=== PATIENT | male | born 1985 | race Caucasian/White ===

== ENCOUNTER 2024-11-21 11:03 | Emergency (ER) | payer MEDICARE, MEDICAID, SELFPAY ==
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
--- OUTSIDE RECORDS SUMMARY | 2024-11-21 11:05 | XMS_ITS | Referral Summary ---
Author Organization [facility] Address [address] [place] [address] Care Team Providers Care Telegraph Service Clerk Name Role Phone Aisha Medina NP Primary Care Provider + Allergies No known active allergies Medications atorvastatin (LIPITOR) 40 mg tabletIndications:hyp erlipidemia Take 1 tablet (40 mg total) by mouth grain processor before breakfast 2 03/25/20 17 Active amLODIPine (NORVASC) 10 mg tabletIndications:hyp ertension Take 1 tablet (10 mg total) by mouth grain processor before breakfast Active aspirin 81 mg enteric coated tabletIndications:pre vention of thrombosis Take 1 tablet (81 mg total) by mouth grain processor before breakfast Active metoprolol (LOPRESSOR) 25 mg tabletIndications:hyp ertension Take 0.5 tablets (12.5 mg total) by mouth 2 (two) times a day Active hydrALAZINE (APRESOLINE) 50 mg tabletIndications:hyp ertension Take 1 tablet (50 mg total) by mouth 3 (three) times a day Active gabapentin (NEURONTIN) 100 mg capsuleIndications:Ne uropathic Pain Take 1 capsule (100 mg total) by mouth nightly Active insulin glargine (LANTUS,BASAGLAR) 100 unit/mL (3 mL) insulin penIndications:DM Inject 28 Units under the skin nightly Active OneTouch Verio test strips strip 11/21/19 22 Active Dexcom G6 Sensor device 12/18/19 22 Active calcitRIOL (ROCALTROL) 0.25 mcg capsule Take 1 capsule (0.25 mcg total) by mouth 3 (three) times a week 12/21/19 22 Active HumaLOG 100 unit/mL pen for injectionIndications: type 2 diabetes mellitus 13 Units 3 (three) times a day with meals 12/21/19 22 Active rOPINIRole (REQUIP) 0.25 mg tabletIndications:Res tless Legs Syndrome Take 1 tablet (0.25 mg total) by mouth nightly 12/26/19 22 Active sevelamer (RENVELA) 800 mg tabletIndications:Isaias al Osteodystrophy with Hyperphosphatemia Take 1 tablet (800 mg total) by mouth 3 (three) times a day with meals 12/21/19 22 Active blood glucose diagnostic (glucose blood) strip 1 each by other route as directed 10/24/19 23 Active famotidine (PEPCID) 40 mg tablet Take 1 tablet (40 mg total) by mouth daily 01/21/20 23 Active ondansetron (ZOFRAN) 4 mg tabletIndications:john sea Take 1 tablet (4 mg total) by mouth every 6 (six) hours as needed for nausea or vomiting 20 tablet 2 04/19/20 23 Active Active Problems Problem Noted Date Diagnosed Date Diabetic ketoacidosis withou t coma associated with type 1 diabetes mellitus 04/18/2023 Vomiting and diarrhea 04/17/2023 COVID-19 04/17/2023 Hyperglycemia 04/17/2023 Hypokalemia 04/17/2023 Lactic acidosis 04/17/2023 End stage renal disease on dialysis 02/28/2022 Overview (02/28/2022): Added automatically from request for surgery [id number] 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 May just need supplemental anti-VEGF as needed. MAYRA #2 today. Plan for monthly MAYRA x3. Could consider supplemental PRP when vitreous (vit) heme resolves more OS: s/p PRP, stable RTC 1 month for DFE OU, MAYRA OD Assessment & Plan (08/02/2020 1:50 PM COIL WINDER HAND): OD: resolving VH, now 20/20 VA, already with dense PRP. Per patient, has a mild bleeding episode every 1-2 years that never required surgical intervention. May just need supplemental anti-VEGF as needed. MAYRA #1 today. Plan for monthly MAYRA until VH resolves. Could consider supplemental PRP at that time as well. OS: s/p PRP, stable Optos FA transit OD. RTC 1 month for DFE OU, MAYRA OD Essential hypertension 02/12/2018 Assessment & Plan (02/12/2018 6:42 PM CDT): Patient's history of hypertension filled find out how long he has had this particular problem. His blood pressure is elevated today part of this could be white coat hypertension. He is on multiple medications for his hypertension which include clonidine 0.1 mg daily, amlodipine 10 mg daily lisinopril 10 mg daily. Patient was given a blood pressure log she double advised med needed 20 blood pressure readings at random in the next 30 days I will see him back in 2 months. Acute foot pain, right 02/12/2018 Assessment & Plan (02/12/2018 6:44 PM CDT): Patient's acute right foot pain less than 2 weeks he knows he stepped on a tack is concerned that he had infection which is none is examination is foot is perfectly normal other he has pain over the 5th metatarsal distally and the 5th toe. At this time I am going to get an x-ray of his foot looking for a stress fracture this is negative he will end up seeing the Podiatry. 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 This patient on his job does a lot of walking and standing Hyperlipidemia 11/13/2013 Overview (10/03/2016): Hyperlipidemia LDL goal < 100 Chronic renal disease, stage II 11/13/2013 Overview (10/04/2016): CHRONIC KIDNEY DIS NOS Assessment & Plan (02/12/2018 6:40 PM CDT): History of chronic renal disease details unknown to me previous lab not available. Patient will get a CMP to done today referral to Nephrology if deemed necessary patient is also concurrently hypertensive. Male erectile disorder 10/30/2010 Overview (10/03/2016): ED (erectile dysfunction) Assessment & Plan (02/12/2018 6:41 PM CDT): Generic Viagra 25 mg works well for him. Type 1 diabetes mellitus wit h chronic kidney disease on chronic dialysis 10/30/2010 Overview (10/04/2016): DMI WO CMP NT ST UNCNTRL Assessment & Plan (02/12/2018 6:39 PM CDT): This patient is a type 1 diabetic since age 8. He states he is using his glucometer readings are high usually in the 200s. Patient has not had any lab work in the last 6 months he has certain of. He is a new patient to me. He is advised that I do not take care of type 1 diabetic I recommended he see hybrid corn breeder and referral will be made. Date she does have sufficient amount insulin at this time. He stated after some chronic renal problems sought hybrid corn breeder 1-[address] Rivera. No further details on this is known to me. He also has poor vision left by this secondary to trauma to the left eye. Will seeing end user consultant for this particular problem. Immunizations Immunization Administration Dates Next Due Pneumococcal Polysaccharide PPV23 10/30/2010 Social History Tobacco Use Types Packs/Day Years Used Date Smoking Tobacco: Never Passive Smoke Exposure: Past Smokeless Tobacco: Never Tobacco Cessation:Counseling Given: Not Answered Alcohol Use Standard Drinks/Week Comments Yes 0 (1 standard drink = 0.6 oz pur e alcohol) less than 1x/month [facility] Utilities Answer Date Recorded In the past 12 months has th e electric, gas, oil, or water company threatened to shut off services in your home? No 04/18/2023 Social Connection and Isolat ion Panel [NHANES] Answer Date Recorded In a typical week, how many times do you talk on the phone with family, friends, or neighbors? More than three times a week 04/18/2023 How often do you get togethe r with friends or relatives? Twice a week 04/18/2023 How often do you attend chur ch or restoration services? Never 04/18/2023 Do you belong to any clubs o r organizations such as christianity groups, unions, fraternal or athletic groups, or school groups? No 04/18/2023 How often do you attend meet ings of the clubs or organizations you belong to? Never 04/18/2023 Are you , , di vorced, , never , or living with a partner? Never 04/18/2023 AUDIT-C Answer Date Recorded Q1: How often do you have a drink containing alcohol? Never 04/17/2023 Q2: How many drinks containi ng alcohol do you have on a typical day when you are drinking? Patient does not drink Q3: How often do you have si x or more drinks on one occasion? Never 04/17/2023 Overall Financial Resource Strain (CARDIA) Answe r Date Recorded How hard is it for you to pa y for the very basics like food, housing, medical care, and heating? Very hard 04/18/2023 Hunger Vital Sign Answer Date Recorded Within the past 12 months, y ou worried that your food would run out before you got the money to buy more. Sometimes true Within the past 12 months, t he food you bought just didn't last and you didn't have money to get more. Sometimes true PRAPARE - Transportation Answer Date Re corded In the past 12 months, has l ack of transportation kept you from medical appointments or from getting medications? No 03/31 In the past 12 months, has l ack of transportation kept you from meetings, work, or from getting things needed for daily living? No 04/18/2023 Housing Stability Vital Sign Answer Robe e Recorded In the last 12 months, was t here a time when you were not able to pay the mortgage or rent on time? No 04/18/2023 In the last 12 months, how many places have you lived? 2 04/18/2023 In the last 12 months, was t here a time when you did not have a steady place to sleep or slept in a longterm (including now)? No 04/18/2023 Personal Safety Answer Date Recorded Have you ever been in or are you currently in a harmful physical or emotional relationship or is someone making you feel afraid or unsafe? Denies 04/17/2023 Education Answer Date Recorded What is the highest level of school you have completed or the highest degree you have received? Some college, no degree 04/18/2023 Sex and Gender Information Value Date Recorded Sex Assigned at Not on file Legal Sex Male 11:58 PM COIL WINDER HAND Gender Identity Not on file Sexual Orientation Not on file Last Filed Vital Signs Vital Sign Reading Time Taken Comments Blood Pressure 119/80 04/19/2023 11:00 AM CDT Pulse 80 04/19/2023 11:00 AM CDT Temperature 36.6 C (97.8 F) 04/19/2023 11:00 AM CDT Respiratory Rate 18 04/19/2023 11:00 AM CDT Oxygen Saturation 98% 04/19/2023 11:00 AM CDT Inhaled Oxygen Concentration - - Weight 87.2 kg (192 lb 3.9 oz) 04/17/2023 5:41 P M CDT Height 175.3 cm (5' 9) 04/17/2023 5:41 PM CDT Body Mass Index 28.39 04/17/2023 5:41 PM CDT Plan of Treatment Not on file Medical Devices Implanted Type Area Toxicology Teacher Device Identifier Shelf Expiration Date Model / Serial / Lot Stents N/A: Heart [employer] Jourdan Curl Cath 62cm 2 Cuff Kit Peritoneum Catheter Dialysis [id number] - [id number] Implanted:Qty : 1 on 03/28/2022 by Rhona Concepcion MD at [facility] N/A: Abdomen [employer] [id number] 08/27/2026 [id number] / / [id number] Procedures Procedure Name Priority Date/Time Associated Diagnosis Comments EGFR Routine 04/19/2023 9:38 AM CDT HEPATITIS PANEL, ACUTE Routine 04/18/2023 5:26 PM CDT HEMOGLOBIN A1C Routine 02/12/2018 12:13 PM CDT Type 1 diabetes mellitus without complication (HCC) LIPID PANEL Routine 02/12/2018 12:13 PM CDT Type 1 diabetes mellitus without complication (HCC) from Last 3 Months or Most Recently Relevant to Health Maintenance Results * eGFR (04/19/2023 9:38 AM CDT) eGFR 10 mL/min/1. 73 m2 [facility] ([place]) Comment: Interpretive Data Reference Interval Normal >/= 90 mL/min/1.73m2 Mildly decreased* 60 - 89 mL/min/1.73m2 Mildly to moderately decreased 45 - 59 mL/min/1.73m2 Moderately to severely decreased 30 - 44 mL/min/1.73m2 Severely decreased 15 - 29 mL/min/1.73m2 Kidney Failure < 15 mL/min/1.73m2 *Relative to young adult level Estimated glomerular filtration rate is determined by the 2020 CKD-EPI equation recommended by the National Kidney Foundation (A Unifying Approach to GFR Estimation: Recommendations of the NKF-ASK Task Force on Reassessing the Inclusion of Race in Diagnosing Kidney Disease, JASN 2020). The CKD-EPI equation should not be used for patients with unstable renal function and has not been validated in children and those over 70. Current interpretive data was last reviewed 2021. Blood 04/19/2023 9:38 AM CDT 04/19/2023 10:03 AM CDT us Chip Rivera MD LAB BLOOD ORDERABLES Final Re sult [facility] ([place]) [address] [facility] [place] [address] * Hepatitis panel, acute Blood (04/18/2023 5:26 PM CDT) Hep A IgM Nonreactive Nonreactive Comment: Interpretive Data: If Hep A IgM Ab is reported as Equivocal, a new sample should be drawn in two weeks for testing. Current interpretive data was last revised on 19. Testing performed by: [facility], [address] [place] [address]., [id number] Hep B core IgM Nonreactive Nonreactive Trupti MCKINNEY ([place]) Comment: Interpretive Data If HepB Core IgM Ab is reported as Equivocal, a new sample should be drawn in two weeks for testing. Current interpretive data was last revised on 19. Testing performed by: [facility], [address] [place] [address]., [id number] Hep C Ab Nonreactive Nonreactive [facility] ([place]) Comment: Interpretive Data Nonreactive: Antibodies to HCV not detected. Does NOT exclude the possibility of recent exposure to HCV. Equivocal: Equivocal for HCV antibodies. Supplemental molecular testing will be automatically performed to determine infection status in accordance with current CDC screening recommendations. Reactive: Positive for HCV antibodies. This may represent current or past HCV infection. Supplemental molecular testing will be automatically performed to determine current infection status in accordance with current CDC screening recommendations. Interpretive data was last revised on 2019. Testing performed by: [facility], [address] [place] [address]., [id number] HepBsAg Nonreactive Nonreactive [facility] ([place]) Comment:Testing performed by : [address] [address] Blood 04/18/2023 5:26 PM CDT 04/18/2023 6:58 PM CDT us Chip Rivera MD LAB MICROBIOLOGY - GENERAL OR DERABLES Final Result [facility] ([place]) 1 [facility] Department [place] [address] * (ABNORMAL) Hemoglobin A1c (02/12/2018 12:13 PM CDT) Hgb A1C 8.5(H) <5.7 % of total Hgb [facility] [place] Comment: For someone without known diabetes, a hemoglobin A1c value of 6.5% or greater indicates that they may have diabetes and this should be confirmed with a follow-up test. For someone with known diabetes, a value <7% indicates that their diabetes is well controlled and a value greater than or equal to 7% indicates suboptimal control. A1c targets should be individualized based on duration of diabetes, age, comorbid conditions, and other considerations. Currently, no consensus exists regarding use of hemoglobin A1c for diagnosis of diabetes for children. Blood specimen (specimen) 02/12/2018 12:13 PM CDT 02/12/2018 12:14 PM CDT Narrative [facility] - 02/13/2018 3:04 PM CDT FASTING:NO FASTING: NO Resulting Agency Comment Performing Organization Information: Site ID: [place] Name: [facility] Address: [address] [place] [address] [place] [address] Director: Guille Logan D.O., MPH Guille Zavala MD LAB BLOOD ORDERABLES Final Result [place], [place] * (ABNORMAL) Lipid panel (02/12/2018 12:13 PM CDT) Cholesterol 295(H) <200 mg/dL [facility] HDL 37(L) >40 mg/dL [facility] Triglycerides 493(H) <150 mg/dL [facility] LDL mg/dL (calc) [facility] Comment: LDL cholesterol not calculated. Triglyceride levels greater than 400 mg/dL invalidate calculated LDL results. Reference range: <100 Desirable range <100 mg/dL for primary prevention; <70 mg/dL for patients with CHD or diabetic patients with > or = 2 CHD risk factors. LDL-C is now calculated using the Claudette calculation, which is a validated novel method providing better accuracy than the Friedewald equation in the estimation of LDL-C. Omero MORTON et al. FRANCIE. 2013;310(19): 9368-4009 (http://education.[employer]ID[employer]-Solutions/faq/EAO012) Chol/HDL ratio 8.0(H) <5.0 (calc) [facility] [place] Non-HDL, (LDL+VLDL) 258(H) <130 mg/dL (calc) [facility] [place] Comment: Non-HDL level > or = 220 is very high and may indicate genetic familial hypercholesterolemia (FH). Clinical assessment and measurement of blood lipid levels should be considered for all first-degree relatives of patients with an FH diagnosis. For patients with diabetes plus 1 major ASCVD risk factor, treating to a non-HDL-C goal of <100 mg/dL (LDL-C of <70 mg/dL) is considered a therapeutic option. Blood specimen (specimen) 02/12/2018 12:13 PM CDT 02/12/2018 12:14 PM CDT Narrative [facility] - 02/13/2018 3:04 PM CDT FASTING:NO FASTING: NO Resulting Agency Comment Performing Organization Information: Site ID: [place] Name: [facility] Address: [address] [place] [address] [place] [id number] Director: Guille Logan D.O., MPH Guille Zavala MD LAB BLOOD ORDERABLES Final Result [facility] [place] from Last 3 Months or Most Recently Relevant to Health Maintenance Insurance [facility] Member Subscriber Plan / Payer (Ef fective 2021-Present) Name:Godfrey Hollins Relation to Subscriber:Self Name:Godfrey Hollins Payer ID:[id number] (NAIC) Type:MEDICAID RISK OTHER Address: [place] [id number] MEDICARE MEDICARE IDDE Advance Directives For more information, please contact: [phone] * Full Code (Latest Code Status on File) Date Activated Date Inactivated Comments 04/17/2023 3:14 PM 04/19/2023 5:23 PM Care Teams Telegraph Service Clerk Relationship Specialty Start Date End Date Aisha Medina NP [address] [place] [address] PCP - General 06/03/19
--- OUTSIDE RECORDS SUMMARY | 2024-11-21 11:05 | XMS_ITS | Continuity of Care Document ---
Author Organization [facility] Address [address] [place] [address] Phone Care Team Providers Care Caramel Cutter Hand Name Role Phone Logan Resendiz MD, MD Unavailable Unavailab le Allergies, Adverse Reactions, Alerts Substance Reaction Status Criticality No Known Allergies Active No Inform ation Medications Medication Instructions Dosage Effective Dates (start - stop) Status Comments LANTUS (unknown strength) inject by subcutaneous route as per insulin protocol Not Available - Active HUMALOG (unknown strength) inject by subcutaneous route per prescriber's instructions. Insulin dosing requires individualization. Not Available - Active LISINOPRIL (unknown strength) take 1 tablet by oral route every day Not Available - Active PRAVASTATIN SODIUM (unknown strength) take 1 tablet by oral route every day Not Available - Active Procedures Procedure Date Office/outpatient Visit, [facility] Advance Directives Directive Yes / No Effective Date File Name No Information Encounters Encounter Description Practice Location Reason(s) For Visit Diagnoses Date Provider Providers Copied on Encounter Office/outpa tient Visit, [facility], [address] [place], [place], [id number], [place] tel:[phone] [facility] Professional floaters (chief complaint) Proliferative diabetes mellitus retinopathyTRD - Traction retinal detachment [address] [facility], [address], [place], [address], [place]. tel:[phone] Referring Provider: José Gilbert MD, [address], [place], [address]. tel:[phone] Family History Family Member Type Diagnosis Age At Onset Maternal grandfather Problem (finding) Diabetes mellit us Maternal grandmother Problem (finding) Diabetes mellit us Mother Problem (finding) diabetes melli tus in first degree relative Payers Payer name Insurance type Covered libertarian ID Authorozzy canales(s) Medicaid [facility] [id number] Social History Type Description Quantity Date Captured Comments Alcohol Use Details No Caffeine Use Details 2 cups per day Tobacco Use Status Never smoked tobacco 2014 Smoking Status Never smoker Non-Smoking Tobacco Use Details : No Details Available : No Details Available Sex Male Chief Complaint And Reason For Visit From encounter dated '09/27/2014 14:00'. floaters (chief complaint) Reason For Referral Reason For Referral No Information History Of Present Illness Encounter Date Complaint History Of Prese nt Illness floaters The 29 year old male presents for Evaluation for floaters after being hit with a football OS about 1 month ago. HX DM. Pt states he had a lot of black lines at first and states he still has some floaters now. Pt denies any flashes. DM BS 220 this AM. Functional Status Date Functional Assessmen t No Information Instructions Date Instruction Additional Infor junion - Discussed diagnosi s in detail with patient. Patient understands. Refer to Retina Specialist for evaluation and treatment of Traction retinal detachment OS. Related to See list of assessments above TRD - Traction retin al detachment - Educational material given Related to TRD - Traction retinal detachment - Refer to retina fo r traction retinal detachment os Related to See list of assessments above Assessments Type Assessment Date assessment Proliferative diabetes mellitus retinopathy assessment TRD - Traction retinal detachmen t Patient Care Teams Name Effective Dates (start - stop) Status Members No Information
--- OUTSIDE RECORDS SUMMARY | 2024-11-21 11:05 | XMS_ITS | Clinical Summary ---
Author Organization [facility] Address [address] [place] [address] Care Team Providers Care Press Operator Apprentice Name Role Phone Aisha Medina NP Primary Care Provider + Allergies No known active allergies Medications atorvastatin (LIPITOR) 40 mg tabletIndications:hyp erlipidemia Take 1 tablet (40 mg total) by mouth landscaping specialist before breakfast 2 03/25/20 17 Active amLODIPine (NORVASC) 10 mg tabletIndications:hyp ertension Take 1 tablet (10 mg total) by mouth landscaping specialist before breakfast Active aspirin 81 mg enteric coated tabletIndications:pre vention of thrombosis Take 1 tablet (81 mg total) by mouth landscaping specialist before breakfast Active metoprolol (LOPRESSOR) 25 mg [...] (02/28/2022): Added automatically from request for surgery [id number] 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 Previous business system manager Dr. Rod is leaving areas our make [...] type 1 diabetic I recommended he see silver miner and referral will be made. Date she does have sufficient amount insulin at this time. He stated after some chronic renal problems sought silver miner 1-[address] Rivera. No further details on this is known to me. He also has poor vision left by this secondary to trauma to the left eye. Will seeing burr grinder for this particular problem. Immunizations Immunization Administration Dates Next Due Pneumococcal Polysaccharide PPV23 10/30/2010 Surgical History Surgery Date Site/Laterality Comments OTHER SURGICAL HISTORY 06/30/2006 - 06/29/2007 Cancer, testicular: L testicle tumor removed FRACTURE SURGERY Right ORIF hand CARDIAC CATHETERIZATION Prep for 3V bypass CARDIAC STENT PLACEMENT Medical History Medical History Date Comments Type 1 diabetes mellitus (HCC) 1993 D iabetes type 1 Neoplasm of testis 2007 Cancer, testi cular Hx Other Medical 2007 Teeth Pulled Hypertension History of transfusion 2007 Cancer (HCC) testicular Motion sickness Coronary artery disease Chronic kidney disease Anxiety GERD (gastroesophageal reflux disease) Family History Medical History Relation Name Comments No Known Problems Father Norman Hollins Other Maternal Grandfather d; Other Maternal Grandmother d; Diabetes Mother Shaista Hollins Heart disease Mother Shaista Hollins Hypertension Mother Shaista Hollins Other Paternal Grandfather d; Other Paternal Grandmother Alive a nd well; Other Sister 1 Ali Alive and well; Other Sister 2 Jennifer Alive and well; Anesthesia problems Neg Hx Relation Name Status Comments Father Norman Hollins Alive Maternal Grandfather Maternal Grandmother Mother Shaista Hollins Paternal Grandfather Paternal Grandmother Alive Sister 1 Ali Alive Sister 2 Jennifer Alive Social History Tobacco Use Types Packs/Day Years Used Date Smoking Tobacco: Never Passive Smoke Exposure: Past Smokeless Tobacco: Never Tobacco Cessation:Counseling Given: Not Answered Alcohol Use Standard Drinks/Week Comments Yes 0 (1 standard drink = 0.6 oz pur e alcohol) less than 1x/month [employer] Answer Date Recorded In the past 12 months has Phone [employer], gas, oil, or water [employer]line [employer] threatened to shut off services in your [...] 04/18/2023 How often do you attend chur or anglican services? Never 04/18/2023 Do you belong to any clubs o r organizations such as gnosticist groups, unions, fraternal or athletic groups, or [...] you are drinking? Patient does not drink 3 Q3: How often do you have si [...] place to sleep or slept in a jail (including now)? No 04/18/2023 Personal Safety Answer [...] on file Legal Sex Male 11:58 PM REMOTE SENSING ENGINEER Gender Identity Not on file Sexual Orientation Not on file Obstetrics History Last Filed Vital Signs Vital Sign Reading [...] 04/17/2023 5:41 PM CDT Plan of Treatment Health Maintenance Due Date Last Done Comments Albumin Creatinine Ratio, Urine 1983 TSH Level 1983 Varicella Vaccines (1 of 2 - 13+ 2-dose series) 1996 Pneumococcal vaccine <65 (2 of 2 - PCV) 04/09/2017 04/09/2016, 10/30/2010 Depression Screening 02/12/2019 02/12/2018, 11/30/2017, 11/30/2017 Foot Exam 02/12/2019 02/12/2018 Regular Well Visit/Exam 18-64 02/12/2019 02/12/2018 Dilated Eye Exam 08/02/2021 08/02/2020, 07/20/2020 Hemoglobin A1C 06/26/2023 12/25/2022, 11/28, 12/08/2020, Additional history exists Lipid Panel 12/26/2023 12/25/2022, 11/28, 12/08/2020, Additional history exists Covid-19 Vaccine ( season) 2024 06/09/2021, 09/18/2020, 08/28/2020 eGFR 04/19/2024 04/19/2023, 03/31, 04/17/2023, Additional history exists Influenza Vaccine (Season Ended) 2025 04/25/2022, 07/30/2017, 04/09/2016, Additional history exists DTaP/Tdap/Td Vaccine (3 - Td or Tdap) 02/26/2026 02/27/2016, 11/08/2013 Hepatitis B Screening Completed 01/14/2022 Hepatitis C Screening Completed 04/18/2023 HPV Vaccines Aged Out No longer eligi ble based on patient's age to complete this topic Medical Devices Implanted Type Area Tunnel Heading Inspector Device Identifier Shelf Expiration Date Model / Serial / Lot Stents N/A: Heart [employer] Jourdan Curl Cath 62cm 2 Cuff Kit Peritoneum Catheter Dialysis [id number] - [id number] Implanted:Qty : 1 on 03/28/2022 by Rhona Concepcion MD at [facility] N/A: Abdomen [employer] [id number] 08/27/2026 [id number] / / [id number] Procedures Procedure Name Priority Date/Time Associated Diagnosis [...] eGFR 10 mL/min/1. 73 m2 KAILEE MCKINNEY (DEANN) Comment: Interpretive Data Reference Interval Normal >/= [...] LAB BLOOD ORDERABLES Final Re sult KAILEE FAYE (STENDAL) 1 [facility] Department [place] [address] * Hepatitis panel, acute Blood (04/18/2023 5:26 PM CDT) Hep A IgM Nonreactive Nonreactive Comment: Interpretive Data: If Hep A IgM Ab is reported as Equivocal, a new sample should be drawn in two weeks for testing. Current interpretive data was last revised on 19. Testing performed by: [address] [address] Hep B core IgM Nonreactive Nonreactive Trupti MCKINNEY (DEANN) Comment: Interpretive Data If HepB Core IgM Ab is reported as Equivocal, a new sample should be drawn in two weeks for testing. Current interpretive data was last revised on 19. Testing performed by: [address] [address] Hep C Ab Nonreactive Nonreactive KAILEE MCKINNEY [...] last revised on 2019. Testing performed by: [address] [address] HepBsAg Nonreactive Nonreactive KAILEE MCKINNEY (DEANN) Comment:Testing performed by : [address] [address] Blood 04/18/2023 5:26 PM CDT 04/18/2023 6:58 PM CDT us Chip Rivera MD LAB MICROBIOLOGY - GENERAL OR DERABLES Final Result KAILEE MCKINNEY (STENDAL) 1 [facility] Department [place] [address] * (ABNORMAL) Hemoglobin A1c (02/12/2018 12:13 PM [...] Agency Comment Performing Organization Information: Site ID: [place] Name: [facility] Address: [address] [place] [id number] Director: Guille Logan D.O., MPH us Guille Zavala MD LAB BLOOD ORDERABLES Final Result [facility] [place] [facility] [place] * (ABNORMAL) Lipid panel (02/12/2018 12:13 PM CDT) Cholesterol 295(H) <200 mg/dL [facility] [place] HDL 37(L) >40 mg/dL [facility] Triglycerides 493(H) <150 mg/dL [facility] [place] LDL mg/dL (calc) [facility] [place] Comment: LDL cholesterol not calculated. Triglyceride levels [...] equation in the estimation of LDL-C. Omero SS et al. FRANCIE. 2013;310(19): 3183-9218 (http://education.Kleek/faq/VZV776) Chol/HDL ratio 8.0(H) <5.0 (calc) [facility] [...] Agency Comment Performing Organization Information: Site ID: [place] Name: [facility] Address: [address] [place] [address] [place] [address] Director: Guille Logan D.O., MPH Guille Zavala MD LAB BLOOD ORDERABLES Final Result [facility] [place] from Last 3 Months or Most Recently Relevant to Health Maintenance Insurance [facility] Member Subscriber Plan / Payer (Ef fective 2021-Present) Name:Godfrey Hollins Relation to Subscriber:Self Name:Godfrey Hollins Payer ID:[id number] ([facility]) Type:MEDICAID RISK OTHER Address: [address] [id number] MEDICARE MEDICARE [facility] Advance Directives For more information, please contact: [phone] * Full Code (Latest Code Status on File) Date Activated Date Inactivated Comments 04/17/2023 3:14 PM 04/19/2023 5:23 PM Care Teams Press Operator Apprentice Relationship Specialty Start Date End Date Aisha Medina NP [address] [facility] [address] [address] PCP - General 06/03/19
--- OUTSIDE RECORDS SUMMARY | 2024-11-21 11:05 | XMS_ITS | Encounter Summary ---
Author Organization [facility] Address [address] [place] [address] Phone Care Team Providers Care Receiving Dock Checker Name Role Phone Aisha Medina NP Primary Care Provider + Encounter Details Date Type Department Care Team (Late st Contact Info) Description 07/20/2020 Ophth Exam [facility] Ophthalmology [address] [place] [address] [address] [place] [id number] Arnie Neal MD [address] [place] [address] Social History Tobacco Use Types Packs/Day Years Used Date Smoking Tobacco: Never Smokeless Tobacco: Never Alcohol Use Standard Drinks/Week Comments Yes 0 (1 standard drink = 0.6 oz pur e alcohol) less than 1x/month Sex and Gender Information Value Date Recorded Sex Assigned at Not on file Legal Sex Male 11:58 PM MATERIAL LIAISON Gender Identity Not on file Sexual Orientation Not on file documented as of this encounter Plan of Treatment Not on file documented as of this encounter Visit Diagnoses Not on filedocumented in this encounter Additional Health Concerns Infection Onset Date Last Indicated Resolved Time COVID: Suspected 04/17/2023 04/17/2023 04/17/2023 2:27 PM CDT COVID19 Comment:Patient has no documented SpO2 consistently < 94%, is not immunocompromised and does not require supplemental oxygen. Based on a S&S onset date of 04/13/23 plus no need for supplemental oxygen this patient is first eligible for COVID: Recovered evaluation on 04/24/15. If the SpO2 consistently drops below 94% and supplemental oxygen is initiated the COVID: Recovered evaluation date changes to 04/29/23. JONATAN Lunsford 04/17/2023 04/17/2023 04/29/2023 3:05 AM C DT COVID: Recovered Comment:Added based on recent COVID infection. 04/29/2023 05/13/2023 07/28/2023 3:[address] documented as of this encounter Eye Exam Visual Acuity Right eye Left eye Near sc 20/60- ph 20/30- 20/20- Tonometry (Tonopen, 7:44 PM) Right eye Left eye Pressure 15 14 Pupils Dark Light Shape React APD Right eye 5 3 Round Brisk - Left eye 5 3 Round Brisk - Visual Jones Right eye Left eye Full Full Difficulty with CF OU, full to confrontation by motion Extraocular Movement Right eye Left eye Full Full Neuro/Psych Oriented x3: Yes Mood/Affect: Normal Dilation Both eyes: 2.5% Phenylephrin e, 1.0% Mydriacyl @ 7:10 PM External Exam Right eye Left eye External Normal Normal Slit Lamp Exam Right eye Left eye Lids/Lashes Normal Normal Conjunctiva/Sclera White and quiet White and beverly et Cornea SPEE SPEE Anterior Chamber Deep and quiet Deep and quiet Iris Round and reactive, no NVI Round and reactive, no NVI Lens Clear Clear Vitreous [place]'s sign, suspe nded heme w/o large collections of vit heme Normal Fundus Exam Right eye Left eye Disc Hazy view but no fra nk NVD, sharp margins, no pallor Likely inferior NVD C/D Ratio 0.3 0.3 Macula Flats, hazy view, hi gh temp PRP superiorly along arcade with confluent white lesions Few DBH, flat, post-surgical focal gliotic plaques along superior arcade Vessels Vascular attenuation Vascular at tenuation Periphery Dense 360 PRP, infer ior heme, IT prominent choroidal vessel in far periphery w/o elevation, no RT/RD/holes on 360 depressed exam Less dense 360 PRP, no heme, attached 360 w/o RD/RT Care Teams Receiving Dock Checker Relationship Specialty Start Date End Date Aisha Medina NP 2 [facility] [id number] [address] PCP - General 06/03/19 documented as of this encounter
--- OUTSIDE RECORDS SUMMARY | 2024-11-21 11:05 | XMS_ITS | Continuity of Care Document ---
Author Organization [facility] Address [address] [place] [address] Phone Care Team Providers Care Vascular Neurologist Name Role Phone Hemant Quijano MD Unavailable Unavailable Allergies, Adverse Reactions, Alerts Substance Reaction Status Criticality No Known Allergies Active No Inform ation Medications Medication Instructions Dosage Effective Dates (start - stop) Status Comments aspirin 81 mg chewable tablet chew 1 tablet by oral route every day 81 MG - Active amlodipine 10 mg tablet take 1 tablet by oral route every day 10 MG - Active Kapspargo Sprinkle 25 mg capsule,extended release take 1 capsule by oral route every day 25 MG - Active bumetanide 2 mg tablet take 1 tablet by oral route every day 2 MG - Active clonidine HCl 0.1 mg tablet take 1 tablet by oral route 2 times every day 0.1 MG - Active gabapentin 100 mg capsule take 2 capsule by oral route every day 200 MG - Active hydralazine 50 mg tablet take 1 tablet by oral route 2 times every day with food 50 MG - Active Lantus U-100 Insulin 100 unit/mL subcutaneous solution inject by subcutaneous route as per insulin protocol 0.00 - Active Novolog Flexpen U-100 Insulin aspart 100 unit/mL (3 mL) subcutaneous inject by subcutaneous route per prescriber's instructions. Insulin dosing requires individualization. 0.00 - Active sodium bicarbonate 650 mg tablet - Active Viagra 25 mg tablet take 1 tablet by ora l route every day as needed approximately 1 hour before sexual activity 25 MG - Active Vitamin D3 2,000 unit capsule take 1 capsule by oral route every day for 30 days 1 capsule - Active Procedures Procedure Date Injection ext venography Dup-scan hemo compl bi std CONTRAST, 300/ML, PER ML Radiation Exposure Documented INJ PROC EXTREMITY VENOGRAPHY VENOGRAPHY EXT BILAT VESSEL MAPPING HEMODIALYSIS ACCESS To Be Coded Injection ext venography Dup-scan hemo compl bi std Advance Directives Directive Yes / No Effective Date File Name No Information Encounters Encounter Description Practice Location Reason(s) For Visit Diagnoses Date Provider Providers Copied on Encounter [facility], [address] [place] [address], [id number], tel:[phone] [facility] No Information Albovias Hemant. [address] [place] [address], [id number], . tel:[phone] [facility], [address] [place] [address], [id number], tel:[phone] [facility] No Information Albovias Hemant. [address] [place] [address], [id number], . tel:[phone] Referring Provider: Prakash Worrell, [address] [place] [address] [place] [address], [address]. tel:[phone] [facility], [address] [place] [address], [id number], tel:[phone] [facility] Albhyacinthas Hemant. [address] [place] [address], [id number], . tel:[phone] Referring Provider: Prakash Worrell, [address] [place] [address] [place] [address], [address]. tel:[phone] As per patient privacy policy some of the clinical information may not be visible. Family History Family Member Type Diagnosis Age At Onset No Information Payers Payer name Insurance type Covered green party ID Authoriza timehdi(s) [employer] o CI [id number] Social History Type Description Quantity Date Captured Comments Sex Male Smoking Status No Information Sexual Orientation Straight or heterosexual Gender Identity Male Chief Complaint And Reason For Visit No Information Reason For Referral Reason For Referral No Information Plan Of Treatment Date Type Action Status Future Order: Radiology Order Up per Body Flouroscopy (23131M), Ordered on: Ordered History Of Present Illness Encounter Date Complaint History Of Prese nt Illness No Information Functional Status Date Functional Assessmen t No Information Instructions Date Instruction Additional Infor mation No Information Assessments Type Assessment Date No Information Patient Care Teams Name Effective Dates (start - stop) Status Members No Information
--- OUTSIDE RECORDS SUMMARY | 2024-11-21 11:12 | XMS_ITS | Encounter Summary ---
Author Organization [facility] Address [address] [place] [address] Phone Care Team Providers Care House Repairer Name Role Phone Ariel Lua Nikhil DPM Unavailable [phone] Aisha Medina APRN, CNP Primary Care Provid er Juanjo Mclaughlin MD Unavailable Rita Lynne MD Unavailable Meron Gurrola RN Unavailable Unavailable Reason for Visit * Reason Comments Medication Refill Encounter Details Date Type Department Care Team (Late st Contact Info) Description 05/10/2022 Refill [facility] - Family Medicine [facility] [address] [place] [address] Aisha Medina APRN, KASSI [address] [address] Medication Refill Social History Tobacco Use Types Packs/Day Years Used Date Smoking Tobacco: Never Cigarettes Smokeless Tobacco: Never Alcohol Use Standard Drinks/Week Comments Yes 0 (1 standard drink = 0.6 oz pur e alcohol) Socially PHQ-2 Answer Date Recorded Total Score - Questions 1-9 0 09/28 Sexually Active Control Partners Comments Yes Female Sex and Gender Information Value Date Recorded Sex Assigned at Not on file Legal Sex Male 12:16 AM CDT Gender Identity Not on file Sexual Orientation Not on file COVID-19 Exposure Response Date Recorded In the last 10 days, have marcos u been in contact with someone who was confirmed or suspected to have Coronavirus/COVID-19? No / Unsure 04/11/2022 9:55 AM CDT documented as of this encounter Plan of Treatment Upcoming Encounters Date Type Department Care Team (Late st Contact Info) Description 01/18/2025 9:30 AM CDT Office Visit [facility] - Endocrinology [facility] [address] [place] [address] Rita Lynne MD #[address] [address] 03/08/2025 9:45 AM CDT Office Visit [facility] - Family Medicine [facility] [address] [place] [address] Aisha Medina APRN, SEQUINS WINDER #[address] [address] documented as of this encounter Visit Diagnoses Diagnosis 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) Type I (juvenile type) diabetes mellitus with renal manifestations, not stated as uncontrolled RLS (restless legs syndrome) Restless legs syndrome (RLS) documented in this encounter Additional Health Concerns Assessment Noted Time PHQ-9 Depression Total Score: 0 03/01/20 21 10:00 AM CDT documented as of this encounter Care Teams House Repairer Relationship Specialty Start Date End Date Aisha Medina APRN, SEQUINS WINDER [address] [address] PCP - General Advanced Practice Nurse 07/17/18 Ariel Lua DPM Consulting Physician Podiatry 12/02/16 Juanjo Mclaughlin MD [address] [address] Consulting Physician Oncology 12/01/19 Rita Lynne MD #[address] [address] Consulting Physician Endocrinology 10/17/22 Meron Gurrola RN [place] Nurse Malt House Kiln Operator 01/09/24 01/15/24 documented as of this encounter
--- OUTSIDE RECORDS SUMMARY | 2024-11-21 11:12 | XMS_ITS | Encounter Summary ---
Author Organization [facility] Address [address] [place] [address] Phone Care Team Providers Care Skiver Uppers Or Linings Name Role Phone Ariel Lua DPM Unavailable [phone] Aisha Medina APRN, SUBGRADE TESTER Primary Care Provid er Juanjo Mclaughlin MD Unavailable Rita Lynne MD Unavailable Meron Gurrola RN Unavailable Unavailable Reason for Visit * Reason Comments Medication Refill Encounter Details Date Type Department Care Team (Late st Contact Info) Description 11/20/2020 Refill [facility] - [facility]ocrin[facility] [address] [place] [address] Rita Lynne MD #[address] [address] Medication Refill Social History Tobacco Use Types Packs/Day Years Used Date Smoking Tobacco: Never Cigarettes Smokeless Tobacco: Never Alcohol Use Standard Drinks/Week Comments Yes 0 (1 standard drink = 0.6 oz pur e alcohol) Socially PHQ-2 Answer Date Recorded PHQ-2 Score 0 03/02/2019 Sexually Active Control Partners Comments Yes Female Sex and Gender Information Value Date Recorded Sex Assigned at Not on file Legal Sex Male 12:16 AM CDT Gender Identity Not on file Sexual Orientation Not on file documented as of this encounter Miscellaneous Notes * Telephone Encounter - Tammy Mccartney RN - 11/20/2020 9:20 AM CDT Requested Prescriptions Pending Prescriptions Disp Refills ??? Glucose Blood (OneTouch Verio) Strip [Pharmacy Med Name: ONETOUCH VERIO STRP] 3 Sig: USE TO TEST BLOOD SUGAR FOUR TIMES A DAY Next appt: 12/18/2020 documented in this encounter Plan of Treatment Upcoming Encounters Date Type Department Care Team (Late st Contact Info) Description 01/18/2025 9:30 AM CDT Office Visit [facility] - Endocrinology - [place] [address] [place] [address] Rita Lynne MD #[address] [address] 03/08/2025 9:45 AM CDT Office Visit [facility] - Family Medicine - [place] [address] [place] [address] Aisha Medina APRN, SUBGRADE TESTER #2 [facility] [address] [place] [address] documented as of this encounter Visit Diagnoses Not on filedocumented in this encounter Additional Health Concerns Assessment Noted Time PHQ-9 Depression Total Score: 0 07/01/19 20 11:36 AM PICTURE BOOKER documented as of this encounter Care Teams Skiver Uppers Or Linings Relationship Specialty Start Date End Date Aisha Medina APRN, SUBGRADE TESTER #2 [facility] [address] [place] [address] PCP - General Advanced Practice Nurse 07/17/18 Ariel Lua DPM Consulting Physician Podiatry 12/02/16 Juanjo Mclaughlin MD [address] [address] Consulting Physician Oncology 12/01/19 Rita Lynne MD #[address] [address] Consulting Physician Endocrinology 10/17/22 Meron Gurrola, RN [place] Nurse Film Touch Up Inspector 01/09/24 01/15/24 documented as of this encounter
--- OUTSIDE RECORDS SUMMARY | 2024-11-21 11:12 | XMS_ITS | Clinical Summary ---
Author Organization [facility] Address [address] [place] [address] Phone Care Team Providers Care Junior Paralegal Name Role Phone ChanellAriel kam Nikhil DPM Unavailable [phone] Aisha Medina APRN, CONTENT MANAGER Primary Care Provid er Juanjo Mclaughlin MD Unavailable Rita Lynne MD Unavailable Allergies No known active allergies Medications Blood Glucose Monitoring Suppl Device Test four times daily 1 Each 020 Active Lancets Misc Test four times daily 400 Lancet 3 022 Active Continuous Blood Gluc Sensor (Dexcom G6 Sensor) Misc CHANGE SENSOR EVERY 10 DAYS 3 Each 3 022 Active Continuous Blood Gluc Transmit (Dexcom G6 Transmitter) Misc CHANGE TRANSMITTER EVERY 90 DAYS 1 Each 3 023 Active Glucose Blood (OneTouch Verio) Strip 4 times a day 400 Each 3 023 Active Glucose Blood (OneTouch Verio) Strip Use as directed 400 Strip 3 023 Active Insulin Pen Needle (NovoFine Plus Pen Needle) 32G X 4 MM Misc 1 Pen Needle by Does not apply route 4 times daily. Use to inject insulin 4x daily. 400 Pen Needle 3 024 Active NovoFine Autocover Pen Needle 30G X 8 MM Misc 024 Active ondansetron (ZOFRAN) 4 MG Tablet Take 1 Tablet by mouth every 8 hours as needed for Nausea - 1st line. 20 Tablet 024 Active allopurinol (ZYLOPRIM) 100 MG TabletIndications :Elevated uric acid in blood Take 1 Tablet by mouth daily. 90 Tablet 3 024 Active gabapentin (NEURONTIN) 300 MG CapsuleIndication s:Type 1 diabetes mellitus with diabetic polyneuropathy (HCC) Take 1 Capsule by mouth 3 times daily. 90 Capsule 5 024 Active sodium bicarbonate 650 MG Tablet Take by mouth 2 times daily. 024 Active Lokelma 10 g Pack MIX AND DRINK 1 PACKET BY MOUTH DAILY 024 Active Insulin Disposable Pump (Omnipod 5 [id number] Pods Gen 5) Misc Every 3 days 30 Each 1 025 Active insulin lispro (HumaLOG) 100 UNIT/ML Solution Per insulin pump settings, up to 90 units per day 90 mL 1 025 Active Insulin Disposable Pump (Omnipod 5 [id number] Intro Gen 5) Kit CHANGE PODS EVERY 3 DAYS 1 Kit 025 Active amLODIPine (NORVASC) 2.5 MG Tablet Take 2.5 mg by mouth daily. Active aspirin 81 MG Chewable Tablet chew and swallow 1 tablet by mouth daily Active atovaquone (MEPRON) 750 MG/5ML Suspension SHAKE LIQUID AND TAKE 10 ML BY MOUTH DAILY Active cinacalcet (SENSIPAR) 30 MG Tablet take 1 tablet by mouth twice daily with the morning and evening meal Active hydroCHLOROthiazi de 25 MG Tablet Take 25 mg by mouth daily. Active Prevymis 480 MG Tablet Take 1 Tablet by mouth daily. Active metoclopramide (REGLAN) 5 MG Tablet take 1 tablet by mouth every 6 hours as needed for nausea or vomiting Active mycophenolate sodium (MYFORTIC) 180 MG Tablet Delayed Response Take 180 mg by mouth 2 times daily. Active pantoprazole (PROTONIX) 40 MG Tablet Delayed Response Take 40 mg by mouth daily. Active predniSONE (DELTASONE) 5 MG Tablet Take 5 mg by mouth daily. Active Xarelto 2.5 MG Tablet Take 2.5 mg by mouth 2 times daily. Active rOPINIRole (REQUIP) 1 MG Tablet Take 1 mg by mouth nightly. Active rosuvastatin (CRESTOR) 20 MG Tablet Take 20 mg by mouth nightly. Active tadalafil (CIALIS) 20 MG Tablet Take 20 mg by mouth. Active carvedilol (COREG) 12.5 MG Tablet Take 12.5 mg by mouth. Active Tacrolimus ER (ENVARSUS XR) 1 MG TABLET SR 24 HR Take 3 mg by mouth. Active LORazepam (Ativan) 1 MG TabletIndications :Anxiety Take 1 Tablet by mouth every 12 hours as needed for Anxiety. Indications: Feeling Anxious 60 Tablet Active sevelamer carbonate (RENVELA) 800 MG Tablet 020 2024 Discontinued(M ed List Clean Up) senna-docusate (SENOKOT S) 8.6-50 MG Tablet Take 1 Tablet by mouth. 022 2024 Discontinued(M ed List Clean Up) gentamicin (GARAMYCIN) 0.1 % Cream 022 2024 Discontinued(M ed List Clean Up) famotidine (PEPCID) 40 MG Tablet 023 2024 Discontinued(M ed List Clean Up) atorvastatin (LIPITOR) 40 MG Tablet TAKE ONE TABLET BY MOUTH EVERY DAY 90 Tablet 1 023 2024 Discontinued(M ed List Clean Up) potassium chloride SA (KLORCON M) 20 MEQ Tablet Controlled Release Take 20 mEq by mouth daily. 024 2024 Discontinued(M ed List Clean Up) sildenafil citrate (VIAGRA) 100 MG Tablet TAKE 1 TABLET BY MOUTH NEEDED FOR ERECTILE DYSFUNCTION 30 Tablet 024 2024 Discontinued(M ed List Clean Up) Tacrolimus ER (ENVARSUS XR) 1 MG TABLET SR 24 HR Take 3 mg by mouth. 024 2024 Discontinued(M ed List Clean Up) carvedilol (COREG) 12.5 MG Tablet Take 1 Tablet by mouth 2 times daily. 180 Tablet 3 025 2024 Discontinued(M ed List Clean Up) LORazepam (Ativan) 1 MG TabletIndications :Anxiety Take 1 Tablet by mouth every 12 hours as needed for Anxiety. Indications: Feeling Anxious 60 Tablet 025 2024 Discontinued(R eorder) Insulin Disposable Pump (Omnipod 5 [id number] Intro Gen 5) Kit Change Pods every 3 days 1 Kit 025 2024 Discontinued senna (SENOKOT) 8.6 MG Tablet Take 1 Tablet by mouth daily. 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 06/12/20 24 Kidney transplant recipient 06/11/2024 Overview (11/02/2024): .Referring Physician: Dr Juan Manuel Rivera Transplant Date: 06/13/2025 Donor: UNOS ID: [id number] Match ID: [id number] Criteria: DBD KDPI: 25 CMV D+/R- EBV D+/R+ HLA Recipient: A(1, 3) B(8, 51) DR(1, 17) Donor: A(2, 23) B(44, 44) DR(11, 15) cPRA: 2% Pre-Transplant Summary: ESRD cause: DM Active on wait list 05/18/21 Kidney Transplant preformed by: Dr Arias Pre- transplant Risk labs: Recent Labs Component Name 06/12/24 0421 HIV12 Non-reactive HEPBCAB Non-reactive HBSAB 107.05 HEPBSAG Negative HCVRNARPT Not detected DONORHCV Negative Immunosuppression: Anti-Thymocyte globulin 100 mg on POD 0, 100 mg on POD 1, 100 mg on POD 2 (total 3 mg/kg) Methylprednisolone 500 mg POD 0, 250 mg POD1, 125 mg POD 2, 60 mg POD 3, 30 mg POD 4 (kidney) Maintenance Immunosuppression: Tacrolimus started POD 0, currently on Envarsus 5 daily - goal trough 8-10 ng/mL (tacrolimus level was high today so dose today was held and patient will start 5 mg daily starting tomorrow) Mycophenolate started POD 0, on mycophenolate 360 mg twice daily Prednisone started POD 5, prednisone 5 on discharge Opportunistic Infection Prophylaxis: PJP Prophylaxis: Bactrim DS PO MWF x 6 months (until 12/12/24) - increased frequency to daily when CrCl >30 CMV Risk status: High risk. Will discharge on Valganciclovir 900 mg daily x 6 months (until 12/12/24) - increase frequency to daily when CrCl > 40 and to 900 mg daily when CrCl > 60. Anti-fungal prophylaxis: none Adjustments: Readmissions: 08/18-08/24/24 presented to the hospital with RLE pain. Patient states he was having right lower extremity pain since his transplant, however it has worsened within the past week. About a week ago, he had a CT angio abdomen aorta with runoff which showed an extensive clot in his right lower extremity. Patient underwent a right femoral artery to popliteal artery bypass on 08/[address] Edwards and tolerated the procedure. Biopsies: Stent Removal scheduled: 07/27 Removed: 07/30 PD Catheter Removed:07/30 [facility] required risk labs ordered for draw 28-56 days post txp. Due: 07/12 - 08/09/24 07/15/23 Non-Reactive for HIV RNA Non-Reactive for HCV RNA Non-Reactive for HBV DNA Test performed with [employer] Ultrio Elite Assay Kit. Acute foot pain, left 04/14/2024 Presence of aortocoronary bypass graft 4 CAD (coronary artery disease) 11/02/2019 CKD (chronic kidney disease) stage 4, GFR 15-29 ml/min 02/18/2019 Overview (03/19/2019): NEPHRO following Pain in both feet 02/18/2019 Macroalbuminuric diabetic nephropathy 02/18/2019 High blood pressure 08/25/2018 Hyperlipidemia 08/25/2018 Diabetes mellitus type I 12/02/2016 Encounters Date Type Department Care Team Description 11/02/2024 11:30 AM CDT Office Visit [facility] [address] [place] [address] Aisha Medina, FOXER, CONTENT MANAGER Primary hypertension (Primary Dx); Anxiety; 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); Kidney transplant recipient; Superficial femoral artery occlusion (HCC); Type 1 diabetes mellitus with diabetic polyneuropathy (HCC); Foot lesion Discharge Disposition: Discharged to home or Selfcare 11/02/2024 Travel 10/27/2024 Refill [facility] Endocrinology - [place] [address] [place] [address] Rita Lynne MD Medication Refill 10/19/2024 9:21 AM CDT - 10/19/2024 11:59 PM CDT Hospital Encounter [facility] Ultrasound [address] [place] [address] Aftab Allen MD Discharge Disposition: Discharged to home or Selfcare 10/19/2024 7:30 AM CDT - 10/19/2024 9:20 AM CDT Hospital Encounter [facility] MRI [address] [place] [address] Aftab Allen MD Discharge Disposition: Discharged to home or Selfcare 10/19/2024 7:30 AM CDT Hospital Encounter [facility] MRI [address] [place] [address] Aftab Allen MD Discharge Disposition: Discharged to home or Selfcare 10/19/2024 Travel 10/08/2024 10:15 AM CDT Office Visit [facility] Endocrinology [facility] [address] [place] [address] Rita Lynne MD Type 1 diabetes mellitus with nephropathy (HCC) (Primary Dx); Hypoglycemia; Insulin dose changed (HCC); Overweight Discharge Disposition: Discharged to home or Selfcare 10/08/2024 Travel 09/17/2024 Telephone [facility] Endocrinology [facility] [address] [place] [address] Rita Lynne MD Medication Management (Insulin coverage) 09/15/2024 Transcribe Orders [facility] Central Scheduling [address] [place] [address] Aftab Allen MD Malignant neoplasm of descended testis, unspecified laterality (HCC) (Primary Dx) 09/13/2024 [facility]phone [facility] [address] [place] [address] Aisha Medina APRN, CONTENT MANAGER Appointment 09/10/2024 [facility] [address] [place] [address] Sukumar Mulligan MD Medication Refill 09/07/2024 [facility] [address] [place] [address] Rita Lynne MD Medication Management (Insulin) from Last 3 Months Immunizations Immunization Administration Dates Next Due Covid-19, Mrna, Lnp-s, Pf, 3 0 Mcg/0.3 Ml Dose (Gazelle) 06/09/2021,09/18/2020,08/28/2020 Hepatitis A Vaccine 05/12/2019 Hepatitis A Vaccine, Pediatr ic/adolescent, 2 Dose Schedule 11/08/2019,11/08/2019 Hepatitis B Vaccine 01/14/2022 Influenza Vaccine 06/16/2023,04/25/2022 Influenza Vaccine greater than 3 yrs 05/12/2024 Influenza, Injectable, Quadrivalent 07/30/2017,1 ,08/29/2015 Influenza,Split Virus,Trivalent,Injectable,PF 05/12/2024 Pneumococcal Vaccine Adult - 23 Valent 6,10/30/2010 Sars-cov-2 (Covid-19) Vaccine, Unspecified 08/28 TB Skin Test 05/03/2022,03/04/2022,01/23/2022 TDAP Vaccine 11/08/2013 Td Vaccine (preservative free) 02/27/2016 Family History Medical History Relation Name Comments Hypertension Father Diabetes Mother Hypertension Mother Relation Name Status Comments Father Alive Mother Alive Social History Tobacco Use Types Packs/Day Years Used Date Smoking Tobacco: Never Smokeless Tobacco: Never Tobacco Cessation:Counseling Given: Not Answered Alcohol Use Standard Drinks/Week Comments Yes 0 (1 standard drink = 0.6 oz pur e alcohol) Socially PHQ-2 Answer Date Recorded Total Score - Questions 1-9 0 11/2024 Sexually Active Control Partners Comments Yes Female Sex and Gender Information Value Date Recorded Sex Assigned at Not on file Legal Sex Male 12:16 AM CDT Gender Identity Not on file Sexual Orientation Not on file Last Filed Vital Signs Vital Sign Reading Time Taken Comments Blood Pressure 116/72 11/02/2024 11:34 AM CDT Pulse 64 11/02/2024 11:34 AM CDT Temperature 36.5 C (97.7 F) 11/02/2024 11:34 AM CDT Respiratory Rate 16 11/02/2024 11:34 AM CDT Oxygen Saturation 98% 11/02/2024 11:34 AM CDT Inhaled Oxygen Concentration - - Weight 85.3 kg (188 lb) 11/02/2024 11:34 AM CDT Height 175.3 cm (5' 9) 11/02/2024 11:34 AM CDT Body Mass Index 27.76 11/02/2024 11:34 AM CDT Plan of Treatment Upcoming Encounters Date Type Department Care Team (Late st Contact Info) Description 01/18/2025 9:30 AM CDT Office Visit [facility] - Endocrinology - [place] [address] [place] [address] Rita Lynne MD [address] [facility] [address] [place] [address] 03/08/2025 9:45 AM CDT Office Visit [facility] - Family Medicine - [place] [address] [place] [address] Aisha Medina APRN, CONTENT MANAGER [address] [facility] [address] [place] [address] Health Maintenance Due Date Last Done Comments Pneumococcal Immunization Combined (3 of 3 - PCV) 04/09/2017 04/09/2016, 10/30/2010 Hepatitis B Immunization (2 of 3 - 19+ 3-dose series) 02/11/2022 01/14/2022 SARS-COV-2 Immunization ( season) 2024 06/09/2021, 09/18/2020, 08/28/2020, Additional history exists Diabetes: Eye Exam 11/25/2024 11/26/2023, 1 , 07/30/2018 Diabetes: Hemoglobin A1c 02/16/2025 025, 08/10/2024, 08/06/2024, Additional history exists Diabetes: Foot Exam 08/10/2025 08/10/2024, 06/18/2019, 06/18/2019, Additional history exists Diabetes: Nephropathy Screening 10/19/2025 10/19/2024, 12/04/2021, 01/24/2021, Additional history exists Td Immunization Every 10 Years (Adults With 1 Tdap) 02/26/2026 02/27/2016, 11/08/2013 Respiratory Syncytial Virus (RSV) Immunization (Adult) (1 - 1-dose 75+ series) 2058 Influenza Immunization Completed , 05/12/2024, 06/16/2023, Additional history exists Hepatitis C Virus (HCV) Screening Completed 06/12/2024, 06/12/2024, 05/06/2024, Additional history exists Human Papillomavirus (HPV) Immunization Aged Out No longer eligible based on patient's age to complete this topic Meningococcal Immunization (ACWY) Aged Out No longer eligible based on patient's age to complete this topic Rotavirus Immunization Aged Out No lo nger eligible based on patient's age to complete this topic Procedures Procedure Name Priority Date/Time Associated Diagnosis Comments PHYSICAL THERAPY CONSULT 10/21/2024 12:00 AM CDT US TESTICULAR WITH COLOR DOPPLER LMT Routine 10/19/2024 9:58 AM CDT Malignant neoplasm of descended testis, unspecified laterality (HCC) MRI PELVIS W/WO CONTRAST Routine 10/19/2024 9:30 AM CDT Malignant neoplasm of descended testis, unspecified laterality (HCC) MRI ABDOMEN W/WO CONTRAST Routine 10/19/2024 9:29 AM CDT Malignant neoplasm of descended testis, unspecified laterality (HCC) POCT CREATININE Routine 10/19/2024 7:46 AM CDT POCT GLYCOSYLATED HEMOGLOBIN Routine 08/10/2024 10:37 AM SUPERVISOR PICKING CREW Type 1 diabetes mellitus with nephropathy (HCC) CMP (COMPREHENSIVE METABOLIC PANEL) 12/04/2021 12:00 AM CDT HM DILATED EYE EXAM Routine 07/30/2018 from Last 3 Months or Most Recently Relevant to Health Maintenance Results * PHYSICAL THERAPY CONSULT (10/21/2024 12:00 AM CDT) 10/21/2024 us Provider Scan GENERIC SCAN ORDERS CONSULT Filomena l Result SCAN * US TESTICULAR WITH COLOR DOPPLER LMT (10/19/2024 9:58 AM CDT) Anatomical Region Laterality Modality Abdomen N/A Ultrasound 10/28/2024 9:54 AM CDT Impressions 10/28/2024 9:57 AM CDT IMPRESSION: Left orchiectomy. No evidence of right testicular mass or torsion. Few tiny punctate calcifications near the right rete testis, a nonspecific finding and of doubtful clinical significance. 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 Abnormal markers on recent labs TECHNIQUE: Odell scale imaging of the scrotum and testes. COMPARISON: None FINDINGS: RIGHT: TESTICLE: The right testicle measures 4.9 x 2.2 x 3.4 cm. The right testicle is normal in echotexture and contour. There are a few tiny punctate calcifications near the rete testis. There is normal blood flow. EPIDIDYMIS: 1.2 x 1.2 x 1.3 cm. The epididymis is normal in size and appearance. HYDROCELE OR VARICOCELE: There is no evidence of significant hydrocele or varicocele. HERNIA OR EXTRA-TESTICULAR MASS: There is no evidence of extratesticular mass. OTHER: No other significant finding. LEFT: Orchiectomy. THIS IS AN ELECTRONICALLY VERIFIED FINAL REPORT 10/28/2024 9:54 AM - Electronically signed by Edgar Plascencia M.D. 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 Abnormal markers on recent labs TECHNIQUE: Odell scale imaging of the scrotum and testes. COMPARISON: None FINDINGS: RIGHT: TESTICLE: The right testicle measures 4.9 x 2.2 x 3.4 cm. The right testicle is normal in echotexture and contour. There are a few tiny punctate calcifications near the rete testis. There is normal blood flow. EPIDIDYMIS: 1.2 x 1.2 x 1.3 cm. The epididymis is normal in size and appearance. HYDROCELE OR VARICOCELE: There is no evidence of significant hydrocele or varicocele. HERNIA OR EXTRA-TESTICULAR MASS: There is no evidence of extratesticular mass. OTHER: No other significant finding. LEFT: Orchiectomy. THIS IS AN ELECTRONICALLY VERIFIED FINAL REPORT 10/28/2024 9:54 AM - Electronically signed by Edgar Plascencia M.D. AM: AM Report ID: [id number] Reading Location: [id number] IMPRESSION: Left orchiectomy. No evidence of right testicular mass or torsion. Few tiny punctate calcifications near the right rete testis, a nonspecific finding and of doubtful clinical significance. us Aftab Allen MD IMG US ORDERABLES Final Result * MRI PELVIS W/WO CONTRAST (10/19/2024 9:30 AM CDT) Anatomical Region Laterality Modality Abdomen, Pelvis N/A Magnetic Resonan ce 10/25/2024 6:56 PM CDT Addenda Addendum by Adriel Barrow MD on 10/28/2024 10:24 AM CDT ADDENDUM REPORT: ADDENDUM: This addendum report supersedes the original report dated October 25, 2024 In the region of the left inguinal canal there is a rounded T2 hypointense T1 isointense structure measuring a maximum of 2.5 x 1.9 cm. There is subtle enhancement on postcontrast imaging. This is indeterminate. This would be amendable to image guided percutaneous sampling as clinically warranted. END OF ADDENDUM REPORT EXAM DESCRIPTION: MRI ABDOMEN W/WO CONTRAST; MRI PELVIS W/WO CONTRAST REASON FOR STUDY: Hx testicular CA 2005 sp BEP. Check for recurrence. Per pt elevated tumor marker in lab work. kidney transplant May 2024. ; Hx testicular CA sp BEP 2005. Check for recurrence. per pt elevated tumor marker in lab work TECHNIQUE: MRI of the abdomen performed without and with intravenous contrast according to the protocol. All images stored on PACS. CONTRAST TYPE/DOSE: 18mL of GADOBENATE DIMEGLUMINE 529 MG/ML IV SOLN injected via Intravenous COMPARISON: None available FINDINGS: LOWER CHEST: No effusion. LIVER: Normal size. No mass. No cysts. GALLBLADDER: No stones, wall thickening or pericholecystic fluid BILE DUCTS: No intrahepatic or extrahepatic ductal dilatation. SPLEEN: Normal size. No focal lesions. PANCREAS: No masses. No adjacent inflammation or peripancreatic fluid collections. Pancreatic duct not dilated ADRENALS: Normal. KIDNEYS/URINARY TRACT: Atrophy of the kidneys bilaterally. Left lower quadrant transplant kidney in place. No solid masses. No cysts. No hydronephrosis or hydroureter. Symmetric enhancement. GI: Small hiatal hernia. PERITONEUM: No ascites. RETROPERITONEUM: No mass or adenopathy. VASCULATURE: No abdominal aortic aneurysm. MUSCULOSKELETAL: No acute findings. OTHER: No other abnormality. Within the pelvis there are postsurgical changes suggestive of right orchiectomy. Several small right inguinal lymph nodes are seen. Given the patient's history these are indeterminate. There is a enlarged right external iliac lymph node measuring 1.8 x 1.3 cm. IMPRESSION: 1. Several small right inguinal and external iliac lymph nodes as above. Given patient's history and recent lab work was further evaluation is warranted. THIS IS AN ELECTRONICALLY VERIFIED FINAL REPORT 10/25/2024 6:56 PM - Electronically signed by Adriel DSOUZA: MEET Report ID: [id number] Reading Location: [id number] THIS IS AN ELECTRONICALLY VERIFIED FINAL REPORT 10/28/2024 10:22 AM Addendum Electronically signed by Adriel DSOUZA: MEET Report ID: [id number] Reading Location: [id number] Impressions 10/25/2024 6:59 PM CDT IMPRESSION: 1. Several small right inguinal and external iliac lymph nodes as above. Given patient's history and recent lab work was further evaluation is warranted. Narrative 10/25/2024 6:59 PM CDT EXAM DESCRIPTION: MRI ABDOMEN W/WO CONTRAST; MRI PELVIS W/WO CONTRAST REASON FOR STUDY: Hx testicular CA 2005 sp BEP. Check for recurrence. Per pt elevated tumor marker in lab work. kidney transplant May 2024. ; Hx testicular CA sp BEP 2005. Check for recurrence. per pt elevated tumor marker in lab work TECHNIQUE: MRI of the abdomen performed without and with intravenous contrast according to the protocol. All images stored on PACS. CONTRAST TYPE/DOSE: 18mL of GADOBENATE DIMEGLUMINE 529 MG/ML IV SOLN injected via Intravenous COMPARISON: None available FINDINGS: LOWER CHEST: No effusion. LIVER: Normal size. No mass. No cysts. GALLBLADDER: No stones, wall thickening or pericholecystic fluid BILE DUCTS: No intrahepatic or extrahepatic ductal dilatation. SPLEEN: Normal size. No focal lesions. PANCREAS: No masses. No adjacent inflammation or peripancreatic fluid collections. Pancreatic duct not dilated ADRENALS: Normal. KIDNEYS/URINARY TRACT: Atrophy of the kidneys bilaterally. Left lower quadrant transplant kidney in place. No solid masses. No cysts. No hydronephrosis or hydroureter. Symmetric enhancement. GI: Small hiatal hernia. PERITONEUM: No ascites. RETROPERITONEUM: No mass or adenopathy. VASCULATURE: No abdominal aortic aneurysm. MUSCULOSKELETAL: No acute findings. OTHER: No other abnormality. Within the pelvis there are postsurgical changes suggestive of right orchiectomy. Several small right inguinal lymph nodes are seen. Given the patient's history these are indeterminate. There is a enlarged right external iliac lymph node measuring 1.8 x 1.3 cm. THIS IS AN ELECTRONICALLY VERIFIED FINAL REPORT 10/25/2024 6:56 PM - Electronically signed by Adriel Barrow M.D. JA: MEET Report ID: [id number] Reading Location: [id number] Procedure Note Adriel Barrow MD - 10/25/2024 EXAM DESCRIPTION: MRI ABDOMEN W/WO CONTRAST; MRI PELVIS W/WO CONTRAST REASON FOR STUDY: Hx testicular CA 2005 sp BEP. Check for recurrence. Per pt elevated tumor marker in lab work. kidney transplant May 2024. ; Hx testicular CA sp BEP 2005. Check for recurrence. per pt elevated tumor marker in lab work TECHNIQUE: MRI of the abdomen performed without and with intravenous contrast according to the protocol. All images stored on PACS. CONTRAST TYPE/DOSE: 18mL of GADOBENATE DIMEGLUMINE 529 MG/ML IV SOLN injected via Intravenous COMPARISON: None available FINDINGS: LOWER CHEST: No effusion. LIVER: Normal size. No mass. No cysts. GALLBLADDER: No stones, wall thickening or pericholecystic fluid BILE DUCTS: No intrahepatic or extrahepatic ductal dilatation. SPLEEN: Normal size. No focal lesions. PANCREAS: No masses. No adjacent inflammation or peripancreatic fluid collections. Pancreatic duct not dilated ADRENALS: Normal. KIDNEYS/URINARY TRACT: Atrophy of the kidneys bilaterally. Left lower quadrant transplant kidney in place. No solid masses. No cysts. No hydronephrosis or hydroureter. Symmetric enhancement. GI: Small hiatal hernia. PERITONEUM: No ascites. RETROPERITONEUM: No mass or adenopathy. VASCULATURE: No abdominal aortic aneurysm. MUSCULOSKELETAL: No acute findings. OTHER: No other abnormality. Within the pelvis there are postsurgical changes suggestive of right orchiectomy. Several small right inguinal lymph nodes are seen. Given the patient's history these are indeterminate. There is a enlarged right external iliac lymph node measuring 1.8 x 1.3 cm. THIS IS AN ELECTRONICALLY VERIFIED FINAL REPORT 10/25/2024 6:56 PM - Electronically signed by Adriel Barrow M.D. JA: MEET Report ID: [id number] Reading Location: [id number] IMPRESSION: 1. Several small right inguinal and external iliac lymph nodes as above. Given patient's history and recent lab work was further evaluation is warranted. us Aftab Allen MD IMG MR ORDERABLES Edited Result - Final * MRI ABDOMEN W/WO CONTRAST (10/19/2024 9:29 AM CDT) Anatomical Region Laterality Modality Abdomen N/A Magnetic Resonan ce 10/25/2024 6:56 PM CDT Addenda Addendum by Adriel Barrow MD on 10/28/2024 10:24 AM CDT ADDENDUM REPORT: ADDENDUM: This addendum report supersedes the original report dated October 25, 2024 In the region of the left inguinal canal there is a rounded T2 hypointense T1 isointense structure measuring a maximum of 2.5 x 1.9 cm. There is subtle enhancement on postcontrast imaging. This is indeterminate. This would be amendable to image guided percutaneous sampling as clinically warranted. END OF ADDENDUM REPORT EXAM DESCRIPTION: MRI ABDOMEN W/WO CONTRAST; MRI PELVIS W/WO CONTRAST REASON FOR STUDY: Hx testicular CA 2005 sp BEP. Check for recurrence. Per pt elevated tumor marker in lab work. kidney transplant May 2024. ; Hx testicular CA sp BEP 2005. Check for recurrence. per pt elevated tumor marker in lab work TECHNIQUE: MRI of the abdomen performed without and with intravenous contrast according to the protocol. All images stored on PACS. CONTRAST TYPE/DOSE: 18mL of GADOBENATE DIMEGLUMINE 529 MG/ML IV SOLN injected via Intravenous COMPARISON: None available FINDINGS: LOWER CHEST: No effusion. LIVER: Normal size. No mass. No cysts. GALLBLADDER: No stones, wall thickening or pericholecystic fluid BILE DUCTS: No intrahepatic or extrahepatic ductal dilatation. SPLEEN: Normal size. No focal lesions. PANCREAS: No masses. No adjacent inflammation or peripancreatic fluid collections. Pancreatic duct not dilated ADRENALS: Normal. KIDNEYS/URINARY TRACT: Atrophy of the kidneys bilaterally. Left lower quadrant transplant kidney in place. No solid masses. No cysts. No hydronephrosis or hydroureter. Symmetric enhancement. GI: Small hiatal hernia. PERITONEUM: No ascites. RETROPERITONEUM: No mass or adenopathy. VASCULATURE: No abdominal aortic aneurysm. MUSCULOSKELETAL: No acute findings. OTHER: No other abnormality. Within the pelvis there are postsurgical changes suggestive of right orchiectomy. Several small right inguinal lymph nodes are seen. Given the patient's history these are indeterminate. There is a enlarged right external iliac lymph node measuring 1.8 x 1.3 cm. IMPRESSION: 1. Several small right inguinal and external iliac lymph nodes as above. Given patient's history and recent lab work was further evaluation is warranted. THIS IS AN ELECTRONICALLY VERIFIED FINAL REPORT 10/25/2024 6:56 PM - Electronically signed by Adriel Barrow M.D. JA: MEET Report ID: [id number] Reading Location: [id number] THIS IS AN ELECTRONICALLY VERIFIED FINAL REPORT 10/28/2024 10:22 AM Addendum Electronically signed by Adriel Barrow M.D. JA: MEET Report ID: [id number] Reading Location: [id number] Impressions 10/25/2024 6:59 PM CDT IMPRESSION: 1. Several small right inguinal and external iliac lymph nodes as above. Given patient's history and recent lab work was further evaluation is warranted. Narrative 10/25/2024 6:59 PM CDT EXAM DESCRIPTION: MRI ABDOMEN W/WO CONTRAST; MRI PELVIS W/WO CONTRAST REASON FOR STUDY: Hx testicular CA 2005 sp BEP. Check for recurrence. Per pt elevated tumor marker in lab work. kidney transplant May 2024. ; Hx testicular CA sp BEP 2005. Check for recurrence. per pt elevated tumor marker in lab work TECHNIQUE: MRI of the abdomen performed without and with intravenous contrast according to the protocol. All images stored on PACS. CONTRAST TYPE/DOSE: 18mL of GADOBENATE DIMEGLUMINE 529 MG/ML IV SOLN injected via Intravenous COMPARISON: None available FINDINGS: LOWER CHEST: No effusion. LIVER: Normal size. No mass. No cysts. GALLBLADDER: No stones, wall thickening or pericholecystic fluid BILE DUCTS: No intrahepatic or extrahepatic ductal dilatation. SPLEEN: Normal size. No focal lesions. PANCREAS: No masses. No adjacent inflammation or peripancreatic fluid collections. Pancreatic duct not dilated ADRENALS: Normal. KIDNEYS/URINARY TRACT: Atrophy of the kidneys bilaterally. Left lower quadrant transplant kidney in place. No solid masses. No cysts. No hydronephrosis or hydroureter. Symmetric enhancement. GI: Small hiatal hernia. PERITONEUM: No ascites. RETROPERITONEUM: No mass or adenopathy. VASCULATURE: No abdominal aortic aneurysm. MUSCULOSKELETAL: No acute findings. OTHER: No other abnormality. Within the pelvis there are postsurgical changes suggestive of right orchiectomy. Several small right inguinal lymph nodes are seen. Given the patient's history these are indeterminate. There is a enlarged right external iliac lymph node measuring 1.8 x 1.3 cm. THIS IS AN ELECTRONICALLY VERIFIED FINAL REPORT 10/25/2024 6:56 PM - Electronically signed by Adriel Barrow M.D. JA: MEET Report ID: [id number] Reading Location: [place] [address] Procedure Note Adriel Barrow MD - 10/25/2024 EXAM DESCRIPTION: MRI ABDOMEN W/WO CONTRAST; MRI PELVIS W/WO CONTRAST REASON FOR STUDY: Hx testicular CA 2005 sp BEP. Check for recurrence. Per pt elevated tumor marker in lab work. kidney transplant May 2024. ; Hx testicular CA sp BEP 2005. Check for recurrence. per pt elevated tumor marker in lab work TECHNIQUE: MRI of the abdomen performed without and with intravenous contrast according to the protocol. All images stored on PACS. CONTRAST TYPE/DOSE: 18mL of GADOBENATE DIMEGLUMINE 529 MG/ML IV SOLN injected via Intravenous COMPARISON: None available FINDINGS: LOWER CHEST: No effusion. LIVER: Normal size. No mass. No cysts. GALLBLADDER: No stones, wall thickening or pericholecystic fluid BILE DUCTS: No intrahepatic or extrahepatic ductal dilatation. SPLEEN: Normal size. No focal lesions. PANCREAS: No masses. No adjacent inflammation or peripancreatic fluid collections. Pancreatic duct not dilated ADRENALS: Normal. KIDNEYS/URINARY TRACT: Atrophy of the kidneys bilaterally. Left lower quadrant transplant kidney in place. No solid masses. No cysts. No hydronephrosis or hydroureter. Symmetric enhancement. GI: Small hiatal hernia. PERITONEUM: No ascites. RETROPERITONEUM: No mass or adenopathy. VASCULATURE: No abdominal aortic aneurysm. MUSCULOSKELETAL: No acute findings. OTHER: No other abnormality. Within the pelvis there are postsurgical changes suggestive of right orchiectomy. Several small right inguinal lymph nodes are seen. Given the patient's history these are indeterminate. There is a enlarged right external iliac lymph node measuring 1.8 x 1.3 cm. THIS IS AN ELECTRONICALLY VERIFIED FINAL REPORT 10/25/2024 6:56 PM - Electronically signed by Adriel Barrow M.D. JA: MEET Report ID: [id number] Reading Location: [place] [address] IMPRESSION: 1. Several small right inguinal and external iliac lymph nodes as above. Given patient's history and recent lab work was further evaluation is warranted. Aftab Allen MD [facility] [place] MR ORDERABLES Edited Result - Final * (ABNORMAL) POCT Creatinine (10/19/2024 7:46 AM CDT) CREATININE - POCT 1.7(H) 0.6 - 1.3 mg/dL 10/19/2024 7:48 AM CDT [facility] Blood 10/19/2024 7:46 AM CDT 10/19/2024 7:48 AM CDT us None Provider POINT OF CARE TESTING Final Resu lt [facility] [address] [place] [address] * (ABNORMAL) POCT GLYCOSYLATED HEMOGLOBIN (08/10/2024 10:37 AM SUPERVISOR PICKING CREW) HGB-A1C 7.7(A) 4 - 6 % Blood 08/10/2024 10:3 7 AM SUPERVISOR PICKING CREW us Rita Lynne MD POINT OF CARE TESTING (MANUAL) F inal Result * CMP (COMPREHENSIVE METABOLIC PANEL) (12/04/2021 12:00 AM CDT) 12/04/2021 us Not On File Provider CHEMISTRY ORDERABLES Final Result SCAN * DILATED EYE EXAM (07/30/2018) us Cristy Granado MD PROCEDURE/MINOR SURGICAL OR DERABLES Final Result from Last 3 Months or Most Recently Relevant to Health Maintenance Insurance MEDICAID [place] MEDICARE C [employer] Care Teams Junior Paralegal Relationship Specialty Start Date End Date Aisha Medina APRN, KASSI #2 [facility] [address] [place] [address] PCP - General Advanced Practice Nurse 07/17/18 Ariel Lua DPM Consulting Physician Podiatry 12/02/16 Juanjo Mclaughlin MD [address] [place] [address] Consulting Physician Oncology 12/01/19 Rita Lynne MD #2 [facility] [address] [place] [address] Consulting Physician Endocrinology 10/17/22
--- OUTSIDE RECORDS SUMMARY | 2024-11-21 11:12 | XMS_ITS | Encounter Summary ---
Author Organization [facility] Address [address] [place] [address] Phone Care Team Providers Care Electrical Logger Name Role Phone Ariel Lua DPM Unavailable [phone] Aisha Medina APRN, DATA ACQUISITION TECHNICIAN Primary Care Provid er Juanjo Mclaughlin MD Unavailable Rita Lynne MD Unavailable Meron Gurrola RN Unavailable Unavailable Reason for Visit * Reason Comments Medication Refill Encounter Details Date Type Department Care Team (Late st Contact Info) Description 11/22/2020 Refill [facility] #2 [place] [address] Rita Lynne MD #[address] [address] Medication Refill Social History Tobacco [...] Telephone Encounter - Tammy Mccartney RN - 11/22/2020 8:10 AM CDT Requested Prescriptions Pending Prescriptions Disp Refills ??? OneTouch Verio Strip [Pharmacy Med Name: ONETOUCH VERIO STRP] 3 Sig: USE TO TEST BLOOD SUGAR FOUR TIMES A DAY Next appt: 12/22/2020 documented in this encounter Plan of Treatment Upcoming Encounters Date Type Department Care Team (Late st Contact Info) Description 01/18/2025 9:30 AM CDT Office Visit [facility] - Endocrinology - [place] [address] [place] [address] Rita Lynne MD #[address] [address] 03/08/2025 9:45 AM CDT Office Visit [facility] - Family Medicine - [place] #2 [place] [address] Aisha Medina APRN, KASSI #2 [facility] [address] [place] [address] documented as of this encounter Visit Diagnoses Not on filedocumented in this encounter Additional Health Concerns Assessment Noted Time PHQ-9 Depression Total Score: 0 07/01/19 20 11:36 AM WOODS BOSS documented as of this encounter Care Teams Electrical Logger Relationship Specialty Start Date End Date Aisha Medina APRN, DATA ACQUISITION TECHNICIAN #2 [facility] [address] [place] [address] PCP - General Advanced Practice Nurse 07/17/18 Ariel Lua DPM Consulting Physician Podiatry 12/02/16 Juanjo Mclaughlin MD [address] [address] Consulting Physician Oncology 12/01/19 Rita Lynne MD #[address] [phone] Consulting Physician Endocrinology 10/17/22 Meron Gurrola, RN [place] Nurse Emergency Room Registered Nurse 01/09/24 01/15/24 documented as of this encounter
--- OUTSIDE RECORDS SUMMARY | 2024-11-21 11:12 | XMS_ITS | Encounter Summary ---
Author Organization [facility] Address [address] [place] [address] Phone Care Team Providers Care Manufacturing Baker Name Role Phone Ariel Lua DPM Unavailable [phone] Aisha Medina APRN, ASSISTANT PROFESSOR OF SOCIOLOGY Primary Care Provid er Juanjo Mclaughlin MD Unavailable Rita Lynne MD Unavailable Meron Gurrola RN Unavailable Unavailable Reason for Visit * Reason Comments Medication Refill Encounter Details Date Type Department Care Team (Late st Contact Info) Description 08/01/2020 [facility] [address] [place] [address] Aisha Medina APRN, ASSISTANT PROFESSOR OF SOCIOLOGY #[address] [phone] Medication Refill Social History Tobacco Use Types [...] encounter Miscellaneous Notes * Telephone Encounter - Vidhya Sotomayor RN - 08/01/2020 12:13 PM CST Please call pt and schedule follow up appt for med refill request approval per PCP. CAL PHYSICS TEACHER documented in this encounter Plan of Treatment Upcoming Encounters Date Type Department Care Team (Late st Contact Info) Description 01/18/2025 9:30 AM CDT Office Visit [facility] - Endocrinology - [place] [address]2 [place] [address] Rita Lynne MD #[address] [address] 03/08/2025 9:45 AM CDT Office Visit [facility] Family Medicine [facility] #2 [place] [address] Aisha Medina APRN, ASSISTANT PROFESSOR OF SOCIOLOGY #[address] [address] documented as of this encounter Visit Diagnoses Diagnosis Hypertension, unspecified type Hyperlipidemia, unspecified hyperlipidemia type documented in this encounter Additional Health Concerns Assessment Noted Time PHQ-9 Depression Total Score: 0 07/01/19 20 11:36 AM MEDICAL PHYSICS TEACHER documented as of this encounter Care Teams Manufacturing Baker Relationship Specialty Start Date End Date Aisha Medina APRN, KASSI #[address] [address] PCP - General Advanced Practice Nurse 07/17/18 Ariel Lua DPM Consulting Physician Podiatry 12/02/16 Juanjo Mclaughlin MD [address] [place] [address] Consulting Physician Oncology 12/01/19 Rita Lynne MD #[address] [address] Consulting Physician Endocrinology 10/17/22 Meron Gurrola RN [place] Nurse Grants Assistant 01/09/24 01/15/24 documented as of this encounter
--- OUTSIDE RECORDS SUMMARY | 2024-11-21 11:12 | XMS_ITS | Encounter Summary ---
Author Organization [facility] Address [address] [place] [address] Phone Care Team Providers Care Four Corner Stayer Machine Operator Name Role Phone Ariel Lua Nikhil DPM Unavailable [phone] Aisha Medina APRN, SYSTEMS TESTER Primary Care Provid er Juanjo Mclaughlin MD Unavailable Rita Lynne MD Unavailable Reason for Visit * Reason Comments Medication Refill Encounter Details Date Type Department Care Team (Late st Contact Info) Description 09/10/2024 Refill [facility] - Family Medicine [facility] #2 [place] [address] Sukumar Mulligan MD #[address] [address] Medication Refill Social History Tobacco Use Types Packs/Day Years Used Date Smoking Tobacco: Never Smokeless Tobacco: Never Alcohol Use Standard Drinks/Week Comments Yes 0 (1 standard drink = 0.6 oz pur e alcohol) Socially PHQ-2 Answer Date Recorded Total Score - Questions 1-9 0 01/2024 Sexually Active Control Partners Comments Yes Female Sex and Gender Information Value Date Recorded Sex Assigned at Not on file Legal Sex Male 12:16 AM CDT Gender Identity Not on file Sexual Orientation Not on file documented as of this encounter Miscellaneous Notes * Telephone Encounter - Casie Lo MA - 09/13/2024 1:24 PM CDT L MOM to CB * Telephone Encounter - Jade Vega RN - 09/10/2024 11:48 AM CDT Aisha Medina APRN, SYSTEMS TESTER to [place] [facility] [place] Regarding result: LORazepam (ATIVAN) 1 MG Tablet [Pharmacy Med Name: LORAZEPAM 1MG TABLETS] 09/10/24 10:48 AM Needs OV * Telephone Encounter - Jade Vega RN - 09/10/2024 9:58 AM CDT Images from the original note were not included. LORazepam Dispensed Days Supply Quantity Provider Pharmacy LORAZEPAM 1MG TABLETS 08/02/2024 30 60 Each Sukumar Mulligan MD [facility] #.. Medication failed the protocol, provider to review and approve the medication order if appropriate. Requested Prescriptions Pending Prescriptions Disp Refills LORazepam (ATIVAN) 1 MG Tablet [Pharmacy Med Name: LORAZEPAM 1MG TABLETS] 60 Tablet 0 Sig: TAKE 1 TABLET BY MOUTH EVERY 12 HOURS NEEDED FOR ANXIETY Not Delegated - Benzodiazepines Protocol Failed - 09/10/2024 9:58 AM Failed - This refill cannot be delegated Passed - Visit with relevant provider in past 12 months or upcoming 90 days Recent Visits Date Type Provider Dept 08/02/24 Telemedicine Sukumar Mulligan MD [facility] 05/12/24 Office Visit Jean-Paul Mcneal MD [facility] 04/14/24 Office Visit Sukumar Mulligan MD [facility] Showing recent visits within past 365 days and meeting all other requirements Future Appointments No visits were found meeting these conditions. Showing future appointments within next 90 days and meeting all other requirements documented in this encounter Plan of Treatment Upcoming Encounters Date Type Department Care Team (Late st Contact Info) Description 01/18/2025 9:30 AM CDT Office Visit [facility] - Endocrinology - [place] #2 [place] [address] Rita Lynne MD #[address] [address] 03/08/2025 9:45 AM CDT Office Visit [facility] - Family Medicine - [place] #2 [place] [address] Aisha Medina APRN, KASSI #[address] [address] documented as of this encounter Visit Diagnoses Diagnosis Anxiety Anxiety state, unspecified documented in this encounter Additional Health Concerns Assessment Noted Time PHQ-9 Depression Total Score: 0 07/07/19 24 2:00 PM LOOM FIXER documented as of this encounter Care Teams Four Corner Stayer Machine Operator Relationship Specialty Start Date End Date Aisha Medina APRN, KASSI #[address] [address] PCP - General Advanced Practice Nurse 07/17/18 Ariel Lua DPM Consulting Physician Podiatry 12/02/16 Juanjo Mclaughlin MD [address] [place] [address] Consulting Physician Oncology 12/01/19 Rita Lynne MD #[address] [phone] Consulting Physician Endocrinology 10/17/22 documented as of this encounter
--- OUTSIDE RECORDS SUMMARY | 2024-11-21 11:12 | XMS_ITS | Encounter Summary ---
Author Organization [facility] Address [address] [place] [address] Phone Care Team Providers Care Basic Combatant Swimmer Name Role Phone Ariel Lua Nikhil DPM Unavailable [phone] Aisha Medina APRN, KASSI Primary Care Provid er Juanjo Mclaughlin MD Unavailable Rita Lynne MD Unavailable Meron Gurrola RN Unavailable Unavailable Reason for Visit * Reason Comments Medication Refill Encounter Details Date Type Department Care Team (Late st Contact Info) Description 04/03/2023 Refill [facility] - Family Medicine [facility] #2 [place] [address] Aisha Medina APRN, KASSI #[address] [address] Medication Refill Social History Tobacco [...] encounter Miscellaneous Notes * Telephone Encounter - Jade Vega RN - 04/03/2023 1:38 PM CDT Medication failed the protocol, provider to review and approve the medication order if appropriate. Requested Prescriptions Pending Prescriptions Disp Refills rOPINIRole (REQUIP) 1 MG Tablet [Pharmacy Med Name: ROPINIROLE HCL 1MG TABS] 30 Tablet 2 Sig: TAKE ONE TABLET BY MOUTH NIGHTLY Antiparkinson Dopaminergics and COMT Protocol Failed - 04/03/2023 2:07 AM Failed - Visit with relevant provider in the past 9 months or upcoming 90 days Recent Visits No visits were found meeting these conditions. Showing recent visits within past 270 days and meeting all other requirements Future Appointments No visits were found meeting these conditions. Showing future appointments within next 90 days and meeting all other requirements Passed - Blood pressure on record in past 12 months Clinician-entered: BP Readings from Last 3 Encounters: 05/21/22 146/74 04/11/22 126/74 12/11/21 150/76 Patient-entered: No data recorded documented in this encounter Plan of Treatment Upcoming Encounters Date Type Department Care Team (Late st Contact Info) Description 01/18/2025 9:30 AM CDT Office Visit [facility] - Endocrinology - [place] #2 [place] [address] Rita Lynne MD #2 [facility] [address] [place] [address] 03/08/2025 9:45 AM CDT Office Visit [facility] - Family Medicine - [place] #[address] [place] [address] Aisha Medina APRN, KASSI #2 [facility] [address] [place] [address] documented as of this encounter Visit Diagnoses [...] documented as of this encounter Care Teams Basic Combatant Swimmer Relationship Specialty Start Date End Date Aisha Medina APRN, CNP #2 [facility] [address] [place] [address] PCP - General Advanced Practice Nurse 07/17/18 Ariel Lua DPM Consulting Physician Podiatry 12/02/16 Juanjo Mclaughlin MD [address] [place] [address] Consulting Physician Oncology 12/01/19 Rita Lynne MD #2 [facility] [address] [place] [address] Consulting Physician Endocrinology 10/17/22 Meron Gurrola RN [place] Nurse Adobe Layer 01/09/24 01/15/24 documented as of this encounter
--- OUTSIDE RECORDS SUMMARY | 2024-11-21 11:12 | XMS_ITS | Encounter Summary ---
Author Organization [facility] Address [address] [place] [address] Phone Care Team Providers Care Adjuster Arbitrator Name Role Phone Ariel Lua Nikhil DPM Unavailable [phone] Aisha Medina APRN, CNP Primary Care Provid er Juanjo Mclaughlin MD Unavailable Rita Lynne MD Unavailable Meron Gurrola RN Unavailable Unavailable Reason for Visit * Reason Comments Medication Refill Encounter Details Date Type Department Care Team (Late st Contact Info) Description 10/29/2022 Refill [facility] - Family Medicine [facility] #2 [place] [address] Aisha Medina APRN, KASSI #[address] [address] Medication Refill Social History Tobacco [...] In the last 10 days, have marcos infante been in contact with someone who was confirmed or suspected to have Coronavirus/COVID-19? No / Unsure 10/23/2022 8:17 AM CDT documented as of this encounter Miscellaneous Notes * Telephone Encounter - Emma Hernadez RN - 10/30/2022 9:24 AM CDT Medication failed the protocol, provider to review and approve the medication order if appropriate. Requested Prescriptions Pending Prescriptions Disp Refills ondansetron (ZOFRAN) 4 MG Tablet [Pharmacy Med Name: ONDANSETRON HCL 4MG TABS] 15 Tablet 0 Sig: TAKE ONE TABLET BY MOUTH EVERY 8 HOURS NEEDED FOR NAUSEA Not Delegated - 5-HT3 Antagonists Protocol Failed - 10/29/2022 3:31 PM Failed - This refill cannot be delegated Passed - Visit with relevant provider in past 12 months or upcoming 90 days Recent Visits Date Type Provider Dept 05/21/22 Office Visit Aisha Medina APRN, CNP [facility] 04/11/22 Office Visit Aisha Medina APRN, KASSI [facility] 12/11/21 Procedure Visit Claus Guaman MD [facility] 12/04/21 Office Visit Aisha Medina APRN, KASSI [facility] Showing recent visits within past 365 days and meeting all other requirements Future Appointments Date Type Provider Dept 11/19/22 Appointment Aisha Medina APRN, CNP [facility] Showing future appointments within next 90 days and meeting all other requirements documented in this encounter Plan of Treatment Upcoming Encounters Date Type Department Care Team (Late st Contact Info) Description 01/18/2025 9:30 AM CDT [facility] [place] [facility] [place] [address] Rita Lynne MD #[address] [address] 03/08/2025 9:45 AM CDT Office Visit [facility] - Family Medicine - [place] #2 [place] [address] Aisha Medina APRN, KASSI #[address] [address] documented as of this encounter Visit Diagnoses Not on filedocumented in this encounter Additional Health Concerns Assessment Noted Time PHQ-9 Depression Total Score: 0 03/01/20 21 10:00 AM CDT documented as of this encounter Care Teams Adjuster Arbitrator Relationship Specialty Start Date End Date Aisha Medina APRN, KASSI #[address] [address] PCP - General Advanced Practice Nurse 07/17/18 Ariel Lua DPM Consulting Physician Podiatry 12/02/16 Juanjo Mclaughlin MD [address] [place] [address] Consulting Physician Oncology 12/01/19 Rita Lynne MD #[address] [address] Consulting Physician Endocrinology 10/17/22 Meron Gurrola, RN [place] Nurse Log Check Scaler 01/09/24 01/15/24 documented as of this encounter
--- OUTSIDE RECORDS SUMMARY | 2024-11-21 11:12 | XMS_ITS | Encounter Summary ---
Author Organization [facility] Address [address] [place] [address] Phone Care Team Providers Care Shearer Helper Name Role Phone Ariel Lua DPM Unavailable [phone] Aisha Medina APRN, COORDINATOR MINING PRODUCTS Primary Care Provid er Juanjo Mclaughlin MD Unavailable Rita Lynne MD Unavailable Meron Gurrola RN Unavailable Unavailable Reason for Visit * Reason Comments Medication Refill Encounter Details Date Type Department Care Team (Late st Contact Info) Description 08/31/2020 Refill [facility] [address] [place] [address] Aisha Medina APRN, COORDINATOR MINING PRODUCTS #[address] [phone] Medication Refill Social History Tobacco Use Types [...] Telephone Encounter - Jade Vega RN - 08/31/2020 11:06 AM CST atorvastatin (LIPITOR) 40 MG Tablet 90 Tab 2 08/01/2020 Sig: TAKE ONE TABLET BY MOUTH EVERY DAY Sent to pharmacy as: Atorvastatin Calcium 40 MG Oral Tablet (LIPITOR) Class: E Prescribe E-Prescribing Status: Receipt confirmed by pharmacy (08/01/2020 ??2:34 PM CHIEF COOK) atorvastatin (LIPITOR) 40 MG Tablet [[id number]] 33 Status: Active Ordering user: Aisha Medina APN, CNP 08/01/201433 Authorized by: Aisha Medina APN, CNP Frequency: ??08/01/20 - Until Discontinued Released by: Aisha Medina APN, CNP 08/01/20 143 Diagnoses Hypertension, unspecified type [I10] Hyperlipidemia, unspecified hyperlipidemia type [E78.5] Associated Diagnoses Hypertension, unspecified type Hyperlipidemia, unspecified hyperlipidemia type Pharmacy [place], [place] - [address] duplicate F COOK documented in this encounter Plan of Treatment Upcoming Encounters Date Type Department Care Team (Late st Contact Info) Description 01/18/2025 9:30 AM CDT Office Visit [facility] - Endocrinology [facility] #2 [place] [address] Rita Lynne MD #2 [facility] [address] [place] [address] 03/08/2025 9:45 AM CDT Office Visit [facility] Family Medicine [facility] #2 [place] [phone] Aisha Medina APRN, CNP #2 [facility] [address] [place] [address] documented as of this encounter Visit Diagnoses Diagnosis Hypertension, unspecified type Hyperlipidemia, unspecified hyperlipidemia type documented in this encounter Additional Health Concerns Assessment Noted Time PHQ-9 Depression Total Score: 0 07/01/19 20 11:36 AM CHIEF COOK documented as of this encounter Care Teams Shearer Helper Relationship Specialty Start Date End Date Aisha Medina APRN, CNP #2 [facility] [address] [place] [address] PCP - General Advanced Practice Nurse 07/17/18 Ariel Lua DPM Consulting Physician Podiatry 12/02/16 Juanjo Mclaughlin MD [address] [place] [address] Consulting Physician Oncology 12/01/19 Rita Lynne MD #2 [facility] [address] [place] [address] Consulting Physician Endocrinology 10/17/22 Meron Gurrola RN [place] Nurse Peanut Farmer 01/09/24 01/15/24 documented as of this encounter
--- OUTSIDE RECORDS SUMMARY | 2024-11-21 11:12 | XMS_ITS | Encounter Summary ---
Author Organization [facility] Address [address] [place] [address] Phone Care Team Providers Care Player Services Representative Name Role Phone Ariel Lua Nikhil DPM Unavailable [phone] Aisha Medina APRN, CNP Primary Care Provid er Juanjo Mclaughlin MD Unavailable Rita Lynne MD Unavailable Meron Gurrola RN Unavailable Unavailable Reason for Visit * Reason Comments Medication Refill Encounter Details Date Type Department Care Team (Late st Contact Info) Description 12/07/2021 Refill [facility] - Family Medicine [facility] #2 [place] [address] Aisha Medina APRN, KASSI #[address] [address] Medication Refill Social History [...] suspected to have Coronavirus/COVID-19? No / Unsure 12/04/2021 9:01 AM CDT documented as of this encounter Miscellaneous Notes * Telephone Encounter - Jade Vega RN - 12/07/2021 10:26 AM CDT Medication failed the protocol, provider to review and approve the medication order if appropriate. Requested Prescriptions Pending Prescriptions Disp Refills atorvastatin (LIPITOR) 40 MG Tablet [Pharmacy Med Name: ATORVASTATIN CALCIUM 40MG TABS] 90 Tablet 1 Sig: TAKE ONE TABLET BY MOUTH EVERY DAY Hmg CoA Reductase Inhibitors Protocol Failed - 12/07/2021 2:04 AM Failed - Lipid panel in past 12 months LDL Date Value Ref Range Status 10/19/2020 65 5 - 130 mg/dL Final HDL CHOLESTEROL Date Value Ref Range Status 10/19/2020 28.7 (L) >40 mg/dL Final CHOLESTEROL Date Value Ref Range Status 10/19/2020 134 <=200 mg/dL Final TRIGLYCERIDES Date Value Ref Range Status 10/19/2020 203 (H) <150 mg/dL Final VLDL Date Value Ref Range Status 10/19/2020 41 5 - 55 mg/dL Final CHOL/HDL RATIO Date Value Ref Range Status 10/19/2020 4.7 (H) 0.0 - 4.4 Final NON-HDL CHOLESTEROL Date Value Ref Range Status 10/19/2020 105.3 <130 mg/dL Final Passed - Visit with relevant provider in past 12 months or upcoming 90 days Recent Visits Date Type Provider Dept 12/04/21 Office Visit Aisha Medina APRN, KASSI [facility] 10/15/21 Office Visit Aisha Medina APRN, DRYWALL HANGER [facility] 03/01/21 Office Visit Aisha Medina APRN, DRYWALL HANGER [facility] Showing recent visits within past 365 days and meeting all other requirements Future Appointments Date Type Provider Dept 12/11/21 Appointment Claus Guaman MD [facility] Showing future appointments within next 90 days and meeting all other requirements documented in this encounter Plan of Treatment Upcoming Encounters Date Type Department Care Team (Late st Contact Info) Description 01/18/2025 9:30 AM CDT Office Visit [facility] - Endocrinology - [place] #2 [place] [phone] Rita Lynne MD #[address] [phone] 03/08/2025 9:45 AM CDT Office Visit [facility] - Family Medicine - [place] #2 [place] [address] Aisha Medina APRN, DRYWALL HANGER #[address] [phone] documented as of this encounter Visit Diagnoses Not on filedocumented in this encounter Additional Health Concerns Assessment Noted Time PHQ-9 Depression Total Score: 0 03/01/20 21 10:00 AM CDT documented as of this encounter Care Teams Player Services Representative Relationship Specialty Start Date End Date Aisha Medina APRN, KASSI #[address] [phone] PCP - General Advanced Practice Nurse 07/17/18 Ariel Lua DPM Consulting Physician Podiatry 12/02/16 Juanjo Mclaughlin MD [address] [place] [phone] Consulting Physician Oncology 12/01/19 Rita Lynne MD #[address] [phone] Consulting Physician Endocrinology 10/17/22 Meron Gurrola RN [place] Nurse Television News Reporter 01/09/24 01/15/24 documented as of this encounter
--- OUTSIDE RECORDS SUMMARY | 2024-11-21 11:12 | XMS_ITS | Encounter Summary ---
Author Organization [facility] Address [address] [place] [address] Phone Care Team Providers Care Straightener Name Role Phone Ariel Lua Nikhil DPM Unavailable [phone] Aisha Medina APRN, CUSTOMER SERVICE ATTENDANT Primary Care Provid er Juanjo Mclaughlin MD Unavailable Rita Lynne MD Unavailable Meron Gurrola RN Unavailable Unavailable Reason for Visit * Reason Comments Medication Refill Encounter Details Date Type Department Care Team (Late st Contact Info) Description 07/11/2022 Refill [facility] - Family Medicine [facility] #2 [place] [address] Cherelle Vargas, [facility] [place] [facility] #2 [place] [address] Medication Refill Social History Tobacco Use Types [...] Telephone Encounter - Jade Vega RN - 07/11/2022 1:56 PM CST Medication failed the protocol, provider to review and approve the medication order if appropriate. Requested Prescriptions Pending Prescriptions Disp Refills ondansetron (ZOFRAN) 4 MG Tablet [Pharmacy Med Name: ONDANSETRON HCL 4MG TABS] 15 Tablet 0 Sig: TAKE ONE TABLET BY MOUTH EVERY 8 HOURS (FIRST LINE) NEEDED FOR NAUSEA Not Delegated - 5-HT3 Antagonists Protocol Failed - 07/11/2022 12:58 PM Failed - This refill cannot be delegated Passed - Visit with relevant provider in past 12 months or upcoming 90 days Recent Visits Date Type Provider Dept 05/21/22 Office Visit Aisha Medina APRN, KASSI [facility] 04/11/22 Office Visit Aisha Medina APRN, KASSI [facility] 12/11/21 Procedure Visit Claus Guaman MD [facility] 12/04/21 Office Visit Aisha Medina APRN, KASSI [facility] 10/15/21 Office Visit Aisha Medina APRN, CUSTOMER SERVICE ATTENDANT [facility] [place] Showing recent visits within past 365 days and meeting all other requirements Future Appointments No visits were found meeting these conditions. Showing future appointments within next 90 days and meeting all other requirements NMENT MECHANIC documented in this encounter Plan of Treatment Upcoming Encounters Date Type Department Care Team (Late st Contact Info) Description 01/18/2025 9:30 AM CDT Office Visit [facility] Medical [facility] - Endocrinology - [place] [address] [place] [address] Rita Lynne MD #[address] [address] 03/08/2025 9:45 AM CDT Office Visit [facility] - Family Medicine - [place] #2 [place] [address] Aisha Medina APRN, CUSTOMER SERVICE ATTENDANT #2 [facility] [address] [place] [address] documented as of this encounter Visit Diagnoses Not on filedocumented in this encounter Additional Health Concerns Assessment Noted Time PHQ-9 Depression Total Score: 0 03/01/20 21 10:00 AM CDT documented as of this encounter Care Teams Straightener Relationship Specialty Start Date End Date Aisha Medina APRN, CUSTOMER SERVICE ATTENDANT #2 [facility] [address] [place] [phone] PCP - General Advanced Practice Nurse 07/17/18 Ariel Lua DPM Consulting Physician Podiatry 12/02/16 Juanjo Mclaughlin MD [address] [place] [address] Consulting Physician Oncology 12/01/19 Rita Lynne MD #[address] [phone] Consulting Physician Endocrinology 10/17/22 Meron Gurrola RN [place] Nurse Ordnance Equipment Worker 01/09/24 01/15/24 documented as of this encounter
--- OUTSIDE RECORDS SUMMARY | 2024-11-21 11:12 | XMS_ITS | Encounter Summary ---
Author Organization [facility] Address [address] [place] [address] Phone Care Team Providers Care Paper Handler Name Role Phone Ariel Lua Nikhil DPM Unavailable [phone] Aisha Medina APRN, CATALYST RECOVERY OPERATOR Primary Care Provid er Juanjo Mclaughlin MD Unavailable Rita Lynne MD Unavailable Meron Gurrola RN Unavailable Unavailable Reason for Visit * Reason Comments Medication Refill Encounter Details Date Type Department Care Team (Late st Contact Info) Description 07/24/2022 Refill [facility] - Family Medicine [facility] #2 [place] [address] Jean-Paul Mcneal MD #[address] [address] Medication Refill Social History Tobacco Use Types [...] Telephone Encounter - Jade Vega RN - 07/25/2022 9:30 AM CST Quantity is a 5 days supply Medication failed the protocol, provider to review and approve the medication order if appropriate. Requested Prescriptions Pending Prescriptions Disp Refills ondansetron (ZOFRAN) 4 MG Tablet [Pharmacy Med Name: ONDANSETRON HCL 4MG TABS] 15 Tablet 0 Sig: TAKE ONE TABLET BY MOUTH EVERY 8 HOURS NEEDED FOR NAUSEA Not Delegated - 5-HT3 Antagonists Protocol Failed - 07/24/2022 3:50 PM Failed - This refill cannot be delegated Passed - Visit with relevant provider in past 12 months or upcoming 90 days Recent Visits Date Type Provider Dept 05/21/22 Office Visit Aisha Medina APRN, KASSI [facility] 04/11/22 Office Visit Aisha Medina APRN, KASSI [facility] 12/11/21 Procedure Visit Claus Guaman MD [facility] 12/04/21 Office Visit Aisha Medina APRN, KASSI [facility] 10/15/21 Office Visit Aisha Medina APRN, CATALYST RECOVERY OPERATOR [facility] Showing recent visits within past 365 days and meeting all other requirements Future Appointments No visits were found meeting these conditions. Showing future appointments within next 90 days and meeting all other requirements EACH WORKER documented in this encounter Plan of Treatment Upcoming Encounters Date Type Department Care Team (Late st Contact Info) Description 01/18/2025 9:30 AM CDT Office Visit [facility] Medical [facility] - Endocrinology - [place] [address] [place] [address] Rita Lynne MD #[address] [address] 03/08/2025 9:45 AM CDT Office Visit [facility] - Family Medicine - [place] #2 [place] [address] Aisha Medina APRN, CATALYST RECOVERY OPERATOR #2 [facility] [address] [place] [address] documented as of this encounter Visit Diagnoses Not on filedocumented in this encounter Additional Health Concerns Assessment Noted Time PHQ-9 Depression Total Score: 0 03/01/20 21 10:00 AM CDT documented as of this encounter Care Teams Paper Handler Relationship Specialty Start Date End Date Aisha Medina APRN, CATALYST RECOVERY OPERATOR #2 [facility] [address] [place] [phone] PCP - General Advanced Practice Nurse 07/17/18 Ariel Lua DPM Consulting Physician Podiatry 12/02/16 Juanjo Mclaughlin MD [address] [place] [address] Consulting Physician Oncology 12/01/19 Rita Lynne MD #[address] [phone] Consulting Physician Endocrinology 10/17/22 Meron Gurrola RN [place] Nurse Incident Response Engineer 01/09/24 01/15/24 documented as of this encounter
--- OUTSIDE RECORDS SUMMARY | 2024-11-21 11:12 | XMS_ITS | Encounter Summary ---
Author Organization [facility] Address [address] [place] [address] Phone Care Team Providers Care Type Cutter Name Role Phone Ariel Lua Nikhil DPM Unavailable [phone] Aisha Medina APRN, KASSI Primary Care Provid er Juanjo Mclaughlin MD Unavailable Rita Lynne MD Unavailable Meron Gurrola RN Unavailable Unavailable Reason for Visit * Reason Comments Medication Refill Encounter Details Date Type Department Care Team (Late st Contact Info) Description 07/16/2023 Refill [facility] - Family Medicine [facility] #2 [place] [address] Aisha Medina APRN, KASSI #[address] [address] Medication Refill Social History Tobacco [...] Telephone Encounter - Jade Vega RN - 07/16/2023 8:23 AM CST Medication failed the protocol, provider to review and approve the medication order if appropriate. Requested Prescriptions Pending Prescriptions Disp Refills gabapentin (NEURONTIN) 300 MG Capsule [Pharmacy Med Name: GABAPENTIN 300MG CAPS] 90 Capsule 0 Sig: TAKE ONE CAPSULE BY MOUTH NIGHTLY Not Delegated - Anticonvulsants Excluding Benzodiazepines Protocol Failed - 07/16/2023 2:07 AM Failed - This refill cannot be delegated Passed - Visit with relevant provider in past 12 months or upcoming 90 days Recent Visits Date Type Provider Dept 07/07/23 Office Visit Aisha Medina APRN, CNP [facility] 07/01/23 Office Visit Aisha Medina APRN, CNP [facility] Showing recent visits within past 365 days and meeting all other requirements Future Appointments No visits were found meeting these conditions. Showing future appointments within next 90 days and meeting all other requirements TATION OPERATOR APPRENTICE documented in this encounter Plan of Treatment Upcoming Encounters Date Type Department Care Team (Late st Contact Info) Description 01/18/2025 9:30 AM CDT Office Visit [facility] Group - Endocrinology - [place] #2 [place] [address] Rita Lynne MD #2 [facility] [address] [place] [address] 03/08/2025 9:45 AM CDT Office Visit [facility] - Family Medicine - [place] #2 [place] [address] Aisha Medina APRN, CNP #2 [facility] [address] [place] [address] documented as of this encounter Visit Diagnoses Diagnosis 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, not stated as uncontrolled documented in this encounter Additional Health Concerns Assessment Noted Time PHQ-9 Depression Total Score: 0 07/07/19 24 2:00 PM SUBSTATION OPERATOR APPRENTICE documented as of this encounter Care Teams Type Cutter Relationship Specialty Start Date End Date Aisha Medina APRN, CNP #2 [facility] [address] [place] [address] PCP - General Advanced Practice Nurse 07/17/18 Ariel Lua DPM Consulting Physician Podiatry 12/02/16 Juanjo Mclaughlin MD [address] [place] [address] Consulting Physician Oncology 12/01/19 Rita Lynne MD #2 [facility] [address] [place] [address] Consulting Physician Endocrinology 10/17/22 Meron Gurrola, ZEINAB [place] Nurse Chemical Inspector 01/09/24 01/15/24 documented as of this encounter
--- OUTSIDE RECORDS SUMMARY | 2024-11-21 11:12 | XMS_ITS | Encounter Summary ---
Author Organization [facility] Address [address] [place] [address] Phone Care Team Providers Care Domestic Cleaner Name Role Phone Ariel Lua Nikhil DPM Unavailable [phone] Winston Medina APRN, CNP Primary Care Provid er Juanjo Mclaughlin MD Unavailable Rita Lynne MD Unavailable Meron Gurrola RN Unavailable Unavailable Reason for Visit * Reason Comments Medication Refill Encounter Details Date Type Department Care Team (Late st Contact Info) Description 06/10/2022 Refill [facility] - Family Medicine [facility] #2 [place] [address] Winston Medina APRN, KASSI #[address] [address] Medication Refill Social History Tobacco [...] Recorded In the last 10 days, have yo u been in contact with someone who was confirmed or suspected to have Coronavirus/COVID-19? No / Unsure 05/21/2022 12:41 PM MILL MANAGER documented as of this encounter Miscellaneous Notes * Telephone Encounter - Jade Vega RN - 06/11/2022 8:04 AM CST Pt is receiving 2 different doses from 2 different providers. MANAGER * Telephone Encounter - Jade Vega RN - 06/11/2022 8:03 AM CST Images from the original note were not included. rOPINIRole HCl Dispensed Days Supply Quantity Provider Pharmacy ROPINIROLE 1MG TAB 06/09/2022 30 30 Tablet Winston Medina APRN, CNP [facility] Pharmac... ROPINIROLE 0.25MG TAB 05/17/2022 30 60 Tablet Martha Perkins MD [facility] Pharmac... ROPINIROLE 1MG TAB 05/07/2022 30 30 Tablet WINSTON MEDINA [facility] Pharmac... ROPINIROLE 0.25MG TAB 04/16/2022 30 60 Tablet MARTHA PERKINS [facility] Pharmac... ROPINIROLE 1MG TAB 04/11/2022 30 30 Tablet WINSTON MEDINA [facility] Pharmac... MANAGER documented in this encounter Plan of Treatment Upcoming Encounters Date Type Department Care Team (Late st Contact Info) Description 01/18/2025 9:30 AM CDT Office Visit [facility] - Endocrinology - [place] [address] [place] [phone] Rita Lynne MD #[address] [phone] 03/08/2025 9:45 AM CDT [facility] - Family Medicine - [place] #2 [place] [address] Winston Medina APRN, SOLAR TECHNICIAN #[address] [address] documented as of this encounter Visit Diagnoses [...] documented as of this encounter Care Teams Domestic Cleaner Relationship Specialty Start Date End Date Winston Medina APRN, SOLAR TECHNICIAN #[address] [address] PCP - General Advanced Practice Nurse 07/17/18 Ariel Lua DPM Consulting Physician Podiatry 12/02/16 Juanjo Mclaughlin MD [address] [place] [address] Consulting Physician Oncology 12/01/19 Rita Lynne MD #[address] [address] Consulting Physician Endocrinology 10/17/22 Meron Gurrola, ZEINAB [place] Nurse Cook Cashier Food Prep 01/09/24 01/15/24 documented as of this encounter
--- OUTSIDE RECORDS SUMMARY | 2024-11-21 11:12 | XMS_ITS ---
Author Organization [facility] Address #[address] [place] [address] Phone Care Team Providers Care Software Clerk Name Role Phone Chanell, Ariel Tejeda DPM Unavailable [phone] Aisha Medina APRN, PROJECT PRODUCT MANAGER Primary Care Provid er Juanjo Mclaughlin MD Unavailable Rita Lynne MD Unavailable OnCall Chronic Condition Monitoring Status:Enrolled (Active) Start date:06/11/2023 Enrollment date:06/12/2023 Current support & services provided:Diabetes Management, Hypertension Management Related social drivers of health:Intimate Partner Violence, Social Connections, Alcohol Use, Tobacco Use, Financial Resource Strain,Depression, Stress, Physical Activity, Food Insecurity, Transportation Needs, Housing Stability, Utilities Continued Care and Services Coordination
--- OUTSIDE RECORDS SUMMARY | 2024-11-21 11:12 | XMS_ITS | Encounter Summary ---
Author Organization [facility] Address [address] [place] [address] Phone Care Team Providers Care Computer Lab Aide Name Role Phone Ariel Lua Nikhil DPM Unavailable [phone] Aisha Medina APRN, KASSI Primary Care Provid er Juanjo Mclaughlin MD Unavailable Rita Lynne MD Unavailable Meron Gurrola RN Unavailable Unavailable Reason for Visit * Reason Comments Medication Refill Encounter Details Date Type Department Care Team (Late st Contact Info) Description 08/13/2023 Refill [facility] Medical Group - Family Medicine [facility] #2 [place] [address] Aisha Medina APRN, KASSI #[address] [address] Medication Refill Social History Tobacco [...] encounter Miscellaneous Notes * Telephone Encounter - Mindi Hardwick RN - 08/13/2023 1:22 PM LUMBER PRESS OPERATOR Medication failed the protocol, provider to review and approve the medication order if appropriate. Requested Prescriptions Pending Prescriptions Disp Refills sildenafil citrate (VIAGRA) 100 MG Tablet [Pharmacy Med Name: Sildenafil Citrate 100 MG Oral Tablet] 30 Tablet 0 Sig: Take 1 Tablet by mouth as needed for Erectile Dysfunction. Erectile Dysfunction Medication Protocol Failed - 08/13/2023 12:40 PM Failed - Erectile dysfunction on problem list Passed - Visit with relevant provider in past 12 months or upcoming 90 days Recent Visits Date Type Provider Dept 07/07/23 Office Visit Aisha Medina APRN, CNP [facility] 07/01/23 Office Visit Aisha Medina APRN, CNP [facility] Showing recent visits within past 365 days and meeting all other requirements Future Appointments No visits were found meeting these conditions. Showing future appointments within next 90 days and meeting all other requirements Passed - Absence of nitrates on med list ER PRESS OPERATOR documented in this encounter Plan of Treatment Upcoming Encounters Date Type Department Care Team (Late st Contact Info) Description 01/18/2025 9:30 AM CDT Office Visit [facility] Medical Group - Endocrinology - [place] #2 [place] [address] Rita Lynne MD #2 [facility] [address] [place] [address] 03/08/2025 9:45 AM CDT Office Visit [facility] - Family Medicine - [place] #2 [place] [address] Aisha Medina APRN, KASSI #2 [facility] [address] [place] [address] documented as of this encounter Visit Diagnoses Not on filedocumented in this encounter Additional Health Concerns Assessment Noted Time PHQ-9 Depression Total Score: 0 07/07/19 24 2:00 PM LUMBER PRESS OPERATOR documented as of this encounter Care Teams Computer Lab Aide Relationship Specialty Start Date End Date Aisha Medina APRN, CNP #2 [facility] [address] [place] [address] PCP - General Advanced Practice Nurse 07/17/18 Ariel Lua DPM Consulting Physician Podiatry 12/02/16 Juanjo Mclaughlin MD [address] [place] [address] Consulting Physician Oncology 12/01/19 Rita Lynne MD #2 [facility] [address] [place] [address] Consulting Physician Endocrinology 10/17/22 Meron Gurrola RN [place] Nurse Forest Worker 01/09/24 01/15/24 documented as of this encounter
--- OUTSIDE RECORDS SUMMARY | 2024-11-21 11:12 | XMS_ITS | Encounter Summary ---
Author Organization [facility] Address [address] [place] [address] Phone Care Team Providers Care Human Resource Consultant Name Role Phone Ariel Lua Nikhil DPM Unavailable [phone] Aisha Medina APRN, KASSI Primary Care Provid er Juanjo Mclaughlin MD Unavailable Rita Lynne MD Unavailable Meron Gurrola RN Unavailable Unavailable Reason for Visit * Reason Comments Medication Refill Encounter Details Date Type Department Care Team (Late st Contact Info) Description 10/04/2022 Refill [facility] Medical Group - Family Medicine [facility]2 [place] [address] Aisha Medina APRN, KASSI #[address] [address] Medication Refill Social History Tobacco [...] Telephone Encounter - Jade Vega RN - 10/04/2022 3:05 PM CDT Medication failed the protocol, provider to review and approve the medication order if appropriate. Requested Prescriptions Pending Prescriptions Disp Refills sildenafil citrate (VIAGRA) 100 MG Tablet [Pharmacy Med Name: Sildenafil Citrate 100 MG Oral Tablet] 30 Tablet 0 Sig: Take 1 Tablet by mouth as needed for Erectile Dysfunction. Erectile Dysfunction Medication Protocol Failed - 10/04/2022 1:26 PM Failed - Erectile dysfunction on problem list Passed - Visit with relevant provider in past 12 months or upcoming 90 days Recent Visits Date Type Provider Dept 05/21/22 Office Visit Aisha Medina APRN, KASSI [facility] 04/11/22 Office Visit Aisha Medina APRN, KASSI [facility] 12/11/21 Procedure Visit Claus Guaman MD [facility] 12/04/21 Office Visit Aisha Medina APRN, KASSI [facility] 10/15/21 Office Visit Aisha Medina APRN, COMPUTER TECHNICAL SPECIALIST [facility] Showing recent visits within past 365 days and meeting all other requirements Future Appointments Date Type Provider Dept 11/19/22 Appointment Aisha Medina APRN, KASSI [facility] Showing future appointments within next 90 days and meeting all other requirements Passed - Absence of nitrates on med list documented in this encounter Plan of Treatment Upcoming Encounters Date Type Department Care Team (Late st Contact Info) Description 01/18/2025 9:30 AM CDT Office Visit [facility] Medical Group - Endocrinology - [place] [address] [place] [phone] Rita Lynne MD #[address] [facility] [address] [address] 03/08/2025 9:45 AM CDT Office Visit [facility] Medical Group - Family Medicine - [place] #2 [place] [address] Aisha Medina APRN, COMPUTER TECHNICAL SPECIALIST #[address] [phone] documented as of this encounter Visit Diagnoses Not on filedocumented in this encounter Additional Health Concerns Assessment Noted Time PHQ-9 Depression Total Score: 0 03/01/20 21 10:00 AM CDT documented as of this encounter Care Teams Human Resource Consultant Relationship Specialty Start Date End Date Aisha Medina APRN, COMPUTER TECHNICAL SPECIALIST #[address] [address] PCP - General Advanced Practice Nurse 07/17/18 Ariel Lua DPM Consulting Physician Podiatry 12/02/16 Juanjo Mclaughlin MD [address] [place] [address] Consulting Physician Oncology 12/01/19 Rita Lynne MD #[address] [address] Consulting Physician Endocrinology 10/17/22 Meron Gurrola, RN [place] Nurse Limo Driver 01/09/24 01/15/24 documented as of this encounter
--- OUTSIDE RECORDS SUMMARY | 2024-11-21 11:12 | XMS_ITS | Encounter Summary ---
Author Organization [facility] Address [address] [place] [address] Phone Care Team Providers Care Highway Research Engineer Name Role Phone Ariel Lua DPM Unavailable [phone] Aisha Medina APRN, INSURANCE ADVISER Primary Care Provid er Juanjo Mclaughlin MD Unavailable Rita Lynne MD Unavailable Meron Gurrola RN Unavailable Unavailable Reason for Visit * Reason Comments Medication Refill Encounter Details Date Type Department Care Team (Late st Contact Info) Description 09/02/2020 Refill [facility] [address] [place] [address] Aisha Medina APRN, INSURANCE ADVISER #[address] [phone] Medication Refill Social History Tobacco Use Types [...] Telephone Encounter - Jade Vega RN - 09/04/2020 9:58 AM CST Confirmed with pharmacy, script was received - refused as duplicate request. PREPARATORY OPERATOR documented in this encounter Plan of Treatment Upcoming Encounters Date Type Department Care Team (Late st Contact Info) Description 01/18/2025 9:30 AM CDT Office Visit [facility] Medical [facility] - Endocrinology - [place] #2 [place] [address] Rita Lynne MD #[address] [address] 03/08/2025 9:45 AM CDT Office Visit [facility] - Family Medicine - [place] #2 [place] [address] Aisha Medina APRN, INSURANCE ADVISER #[address] [address] documented as of this encounter Visit Diagnoses Diagnosis Hypertension, unspecified type Hyperlipidemia, unspecified hyperlipidemia type documented in this encounter Additional Health Concerns Assessment Noted Time PHQ-9 Depression Total Score: 0 07/01/19 20 11:36 AM MASH PREPARATORY OPERATOR documented as of this encounter Care Teams Highway Research Engineer Relationship Specialty Start Date End Date Aisha Medina APRN, KASSI #[address] [address] PCP - General Advanced Practice Nurse 07/17/18 Ariel Lua DPM Consulting Physician Podiatry 12/02/16 Juanjo Mclaughlin MD [address] [place] [address] Consulting Physician Oncology 12/01/19 Rita Lynne MD #[address] [address] Consulting Physician Endocrinology 10/17/22 Meron Gurrola RN [place] Nurse Unemployment Specialist 01/09/24 01/15/24 documented as of this encounter
--- OUTSIDE RECORDS SUMMARY | 2024-11-21 11:12 | XMS_ITS | Encounter Summary ---
Author Organization [facility] Address [address] [place] [address] Phone Care Team Providers Care Print Line Tailer Name Role Phone Ariel Lua Nikhil DPM Unavailable [phone] Aisha Medina APRN, KASSI Primary Care Provid er Juanjo Mclaughlin MD Unavailable Rita yLnne MD Unavailable Meron Gurrola RN Unavailable Unavailable Reason for Visit * Reason Comments Medication Refill Encounter Details Date Type Department Care Team (Late st Contact Info) Description 09/07/2022 Refill [facility] Medical Group - Family Medicine [facility] #2 [place] [address] Aisha Medina APRN, KASSI #[address] [address] Medication Refill Social History Tobacco [...] Telephone Encounter - Jade Vega RN - 09/09/2022 9:04 AM CDT Images from the original note were not included. amLODIPine Besylate Dispensed Days Supply Quantity Provider Pharmacy AMLODIPINE 10MG TAB 09/05/2022 90 90 Tablet Aisha Medina APRN, CNP [facility] documented in this encounter Plan of Treatment Upcoming Encounters Date Type Department Care Team (Late st Contact Info) Description 01/18/2025 9:30 AM CDT Office Visit [facility] Medical [facility] - Endocrinology - [place] #2 [place] [address] Rita Lynne MD #[address] [address] 03/08/2025 9:45 AM CDT Office Visit [facility] Medical [facility] - Family Medicine - [place] #2 [place] [address] Aisha Medina APRN, CNP #2 [facility] [address] [place] [address] documented as of this encounter Visit Diagnoses Diagnosis Hypertension, unspecified type documented in this encounter Additional Health Concerns Assessment Noted Time PHQ-9 Depression Total Score: 0 03/01/20 21 10:00 AM CDT documented as of this encounter Care Teams Print Line Tailer Relationship Specialty Start Date End Date Aisha Medina APRN, CNP #2 [facility] [address] [place] [address] PCP - General Advanced Practice Nurse 07/17/18 Ariel Lua DPM Consulting Physician Podiatry 12/02/16 Juanjo Mclaughlin MD [address] [place] [address] Consulting Physician Oncology 12/01/19 Rita Lynne MD #[address] [address] Consulting Physician Endocrinology 10/17/22 Meron Gurrola, RN [place] Nurse Equity Structurer 01/09/24 01/15/24 documented as of this encounter
--- OUTSIDE RECORDS SUMMARY | 2024-11-21 11:12 | XMS_ITS | Encounter Summary ---
Author Organization [facility] Address [address] [place] [address] Phone Care Team Providers Care Drywall Installer Name Role Phone Ariel Lua Nikhil DPM Unavailable [phone] Aisha Medina APRN, KASSI Primary Care Provid er Juanjo Mclaughlin MD Unavailable Rita Lynne MD Unavailable Meron Gurrola RN Unavailable Unavailable Reason for Visit * Reason Comments Medication Refill Encounter Details Date Type Department Care Team (Late st Contact Info) Description 05/09/2022 Refill [facility] Medical Group - Family Medicine [facility] #2 [place] [address] Aisha Medina APRN, KASSI #[address] [address] Medication Refill Social History Tobacco [...] Description 01/18/2025 9:30 AM CDT Office Visit [facility] - Endocrinology [facility] #2 [place] [address] Rita Lynne MD #[address] [address] 03/08/2025 9:45 AM CDT Office Visit [facility] - Family Medicine [facility] #2 [place] [address] Aisha Medina APRN, UNIVERSITY PRESIDENT #[address] [address] documented as of this encounter Visit Diagnoses [...] documented as of this encounter Care Teams Drywall Installer Relationship Specialty Start Date End Date Aisha Medina APRN, UNIVERSITY PRESIDENT #[address] [address] PCP - General Advanced Practice Nurse 07/17/18 Ariel Lua DPM Consulting Physician Podiatry 12/02/16 Juanjo Mclaughlin MD [address] [address] Consulting Physician Oncology 12/01/19 Rita Lynne MD #[address] [address] Consulting Physician Endocrinology 10/17/22 Meron Gurrola RN [place] Nurse English Composition Teacher 01/09/24 01/15/24 documented as of this encounter
--- OUTSIDE RECORDS SUMMARY | 2024-11-21 11:12 | XMS_ITS | Encounter Summary ---
Author Organization [facility] Address [address] [place] [address] Phone Care Team Providers Care Car Wash Manager Name Role Phone Ariel Lau Nikhil DPM Unavailable [phone] Aisha Medina APRN, KASSI Primary Care Provid er Juanjo Mclaughlin MD Unavailable Rita Lynne MD Unavailable Meron Gurrola RN Unavailable Unavailable Reason for Visit * Reason Comments Medication Refill Encounter Details Date Type Department Care Team (Late st Contact Info) Description 03/07/2022 Refill [facility] Medical Group - Family Medicine [facility] #2 [place] [address] Aisha Medina APRN, KASSI #[address] [address] Medication Refill Social History Tobacco [...] Telephone Encounter - Mindi Hardwick RN - 03/07/2022 10:52 AM CDT Medication failed the protocol, provider to review and approve the medication order if appropriate. Requested Prescriptions Pending Prescriptions Disp Refills amLODIPine (NORVASC) 10 MG Tablet [Pharmacy Med Name: AMLODIPINE BESYLATE 10MG TABS] 90 Tablet 1 Sig: TAKE 1 TABLET BY MOUTH EVERY DAY. Calcium-Channel Blockers Protocol Passed - 03/07/2022 2:04 AM Passed - BP on record in the past year Clinician-entered: BP Readings from Last 3 Encounters: 12/11/21 150/76 12/04/21 140/90 10/15/21 134/82 Patient-entered: No data recorded Passed - Visit with relevant provider in past 12 months or upcoming 90 days Recent Visits Date Type Provider Dept 12/11/21 Procedure Visit Claus Guaman MD [facility] 12/04/21 Office Visit Aisha Medina APRN, CNP [facility] 10/15/21 Office Visit Aisha Medina APRN, CNP [facility] Showing recent visits within past 365 days and meeting all other requirements Future Appointments No visits were found meeting these conditions. Showing future appointments within next 90 days and meeting all other requirements gabapentin (NEURONTIN) 100 MG Capsule [Pharmacy Med Name: GABAPENTIN 100MG CAPS] 90 Capsule 1 Sig: TAKE 1 CAPSULE BY MOUTH EVERY EVENING. Not Delegated - Anticonvulsants Excluding Benzodiazepines Protocol Failed - 03/07/2022 2:04 AM Failed - This refill cannot be delegated Passed - Visit with relevant provider in past 12 months or upcoming 90 days Recent Visits Date Type Provider Dept 12/11/21 Procedure Visit Claus Guaman MD [facility] 12/04/21 Office Visit Aisha Medina APRN, CNP [facility] 10/15/21 Office Visit Aisha Medina APRN, CNP [facility] Showing recent visits within past 365 days and meeting all other requirements Future Appointments No visits were found meeting these conditions. Showing future appointments within next 90 days and meeting all other requirements documented in this encounter Plan of Treatment Upcoming Encounters Date Type Department Care Team (Late st Contact Info) Description 01/18/2025 9:30 AM CDT Office Visit [facility] - Endocrinology - [place] #2 [place] [address] Rita Lynne MD #[address] [phone] 03/08/2025 9:45 AM CDT Office Visit [facility] - Family Medicine - [place] #2 [place] [address] Aisha Medina APRN, KASSI #[address] [phone] documented as of this encounter Visit Diagnoses Diagnosis Hypertension, unspecified type Burning sensation of skin documented in this encounter Additional Health Concerns Assessment Noted Time PHQ-9 Depression Total Score: 0 03/01/20 21 10:00 AM CDT documented as of this encounter Care Teams Car Wash Manager Relationship Specialty Start Date End Date Aisha Medina APRN, KASSI #[address] [address] PCP - General Advanced Practice Nurse 07/17/18 Ariel Lua DPM Consulting Physician Podiatry 12/02/16 Juanjo Mclaughlin MD [address] [place] [address] Consulting Physician Oncology 12/01/19 Rita Lynne MD #[address] [phone] Consulting Physician Endocrinology 10/17/22 Meron Gurrola, RN [place] Nurse Lead Refiner 01/09/24 01/15/24 documented as of this encounter
--- OUTSIDE RECORDS SUMMARY | 2024-11-21 11:12 | XMS_ITS | Encounter Summary ---
Author Organization [facility] Address [address] [place] [address] Phone Care Team Providers Care Maintainer Operator Name Role Phone Ariel Lua Nikhil DPM Unavailable [phone] Aisha Medina APRN, KASSI Primary Care Provid er Juanjo Mclaughlin MD Unavailable Rita Lynne MD Unavailable Meron Gurrola RN Unavailable Unavailable Reason for Visit * Reason Comments Medication Refill Encounter Details Date Type Department Care Team (Late st Contact Info) Description 12/26/2022 Refill [facility] Medical Group - Family Medicine [facility] #2 [place] [address] Aisha Medina APRN, KASSI #[address] [address] Medication Refill Social History [...] Telephone Encounter - Jade Vega RN - 12/26/2022 2:09 PM CDT Signed Yesterday (12/25/2022): rOPINIRole (REQUIP) 1 MG Tablet Sig: TAKE 1 TABLET BY MOUTH NIGHTLY Disp: 30 Tablet ? Refills: 2 Signed by: Aisha Medina APRN, CNP [facility] documented in this encounter Plan of Treatment Upcoming Encounters Date Type Department Care Team (Late st Contact Info) Description 01/18/2025 9:30 AM CDT Office Visit [facility] Medical Group - Endocrinology - [place] #2 [facility] [place] [address] Rita Lynne MD #2 [facility] [address] [place] [address] 03/08/2025 9:45 AM CDT Office Visit [facility] Medical Group - Family Medicine - [place] #2 [place] [address] Aisha Medina APRN, KASSI #2 [facility] [address] [place] [address] documented as of this encounter Visit Diagnoses [...] documented as of this encounter Care Teams Maintainer Operator Relationship Specialty Start Date End Date Aisha Medina APRN, CNP #[address] [place] [address] PCP - General Advanced Practice Nurse 07/17/18 Ariel Lua DPM Consulting Physician Podiatry 12/02/16 Juanjo Mclaughlin MD [address] [place] [address] Consulting Physician Oncology 12/01/19 Rita Lynne MD #[address] [address] Consulting Physician Endocrinology 10/17/22 Meron Gurrola, RN [place] Nurse Shorthand Teacher 01/09/24 01/15/24 documented as of this encounter
--- OUTSIDE RECORDS SUMMARY | 2024-11-21 11:12 | XMS_ITS | Encounter Summary ---
Author Organization [facility] Address [address] [place] [address] Phone Care Team Providers Care Fine Arts Instructor Name Role Phone Ariel Lua Nikhil DPM Unavailable [phone] Aisha Medina APRN, SEASONAL RECRUITER Primary Care Provid er Juanjo Mclaughlin MD Unavailable Rita Lynne MD Unavailable Meron Gurrola RN Unavailable Unavailable Reason for Visit * Reason Comments Medication Refill Encounter Details Date Type Department Care Team (Late st Contact Info) Description 12/06/2022 Refill [facility] #2 [place] [address] Jean-Paul Mcneal MD #[address] [address] Medication Refill Social History Tobacco Use Types [...] Telephone Encounter - Jade Vega RN - 12/06/2022 8:50 AM CDT Medication failed the protocol, provider to review and approve the medication order if appropriate. Requested Prescriptions Pending Prescriptions Disp Refills atorvastatin (LIPITOR) 40 MG Tablet [Pharmacy Med Name: ATORVASTATIN CALCIUM 40MG TABS] 90 Tablet 1 Sig: TAKE ONE TABLET BY MOUTH EVERY DAY Hmg CoA Reductase Inhibitors Protocol Failed - 12/06/2022 2:06 AM Failed - Lipid panel in past 12 months No results found for: LDL, HDLCHOLESTE, CHOLESTEROL, TRIGLYCRIDES, VLDL, CHDL, HDLNON Passed - Visit with relevant provider in past 12 months or upcoming 90 days Recent Visits Date Type Provider Dept 05/21/22 Office Visit Aisha Medina APRN, CNP [facility] 04/11/22 Office Visit Aisha Medina APRN, CNP [facility] 12/11/21 Procedure Visit Claus Guaman MD [facility] Showing recent visits within past 365 days and meeting all other requirements Future Appointments No visits were found meeting these conditions. Showing future appointments within next 90 days and meeting all other requirements documented in this encounter Plan of Treatment Upcoming Encounters Date Type Department Care Team (Late st Contact Info) Description 01/18/2025 9:30 AM CDT Office Visit [facility] - Endocrinology - [place] #2 [place] [address] Rita Lynne MD #2 [facility] [address] [place] [address] 03/08/2025 9:45 AM CDT Office Visit [facility] - Family Medicine [facility] #2 [place] [address] Aisha Medina APRN, KASSI #2 [facility] [address] [place] [address] documented as of this encounter Visit Diagnoses Not on filedocumented in this encounter Additional Health Concerns Assessment Noted Time PHQ-9 Depression Total Score: 0 03/01/20 21 10:00 AM CDT documented as of this encounter Care Teams Fine Arts Instructor Relationship Specialty Start Date End Date Aisha Medina APRN, CNP #2 [facility] [address] [place] [address] PCP - General Advanced Practice Nurse 07/17/18 Ariel Lua DPM Consulting Physician Podiatry 12/02/16 Juanjo Mclaughlin MD [address] [place] [address] Consulting Physician Oncology 12/01/19 Rita Lynne MD #2 [facility] [address] [place] [phone] Consulting Physician Endocrinology 10/17/22 Meron Gurrola, RN [place] Nurse Drywall Finishing Foreman 01/09/24 01/15/24 documented as of this encounter
--- OUTSIDE RECORDS SUMMARY | 2024-11-21 11:12 | XMS_ITS | Encounter Summary ---
Author Organization [facility] Address [address] [place] [address] Phone Care Team Providers Care Preforming Machine Operator Name Role Phone Ariel Lua Nikhil DPM Unavailable [phone] Aisha Medina APRN, CNP Primary Care Provid er Juanjo Mclaughlin MD Unavailable Rita Lynne MD Unavailable Meron Gurrola RN Unavailable Unavailable Reason for Visit * Reason Comments Medication Refill Encounter Details Date Type Department Care Team (Late st Contact Info) Description 06/08/2022 Refill [facility] Medical Group - Family Medicine [facility] #2 [place] [address] Aisha Medina APRN, KASSI #[address] [address] Medication Refill Social History Tobacco [...] Coronavirus/COVID-19? No / Unsure 05/21/2022 12:41 PM COSMETOLOGY PROFESSOR documented as of this encounter Miscellaneous Notes * Telephone Encounter - Jade Vega RN - 06/10/2022 8:15 AM CST Medication failed the protocol, provider to review and approve the medication order if appropriate. Requested Prescriptions Pending Prescriptions Disp Refills atorvastatin (LIPITOR) 40 MG Tablet [Pharmacy Med Name: ATORVASTATIN CALCIUM 40MG TABS] 90 Tablet 1 Sig: TAKE ONE TABLET BY MOUTH EVERY DAY Hmg CoA Reductase Inhibitors Protocol Failed - 06/08/2022 2:07 AM Failed - Lipid panel in past [...] 05/21/22 Office Visit Aisha Medina APRN, KASSI [facility] 04/11/22 Office Visit Aisha Medina APRN, FAGOT MAKER [facility] 12/11/21 Procedure Visit Claus Guaman MD [facility] 12/04/21 Office Visit Aisha Medina APRN, FAGOT MAKER [facility] 10/15/21 Office Visit Aisha Medina APRN, FAGOT MAKER [facility] Showing recent visits within past 365 days and meeting all other requirements Future Appointments No visits were found meeting these conditions. Showing future appointments within next 90 days and meeting all other requirements ETOLOGY PROFESSOR documented in this encounter Plan of Treatment Upcoming Encounters Date Type Department Care Team (Late st Contact Info) Description 01/18/2025 9:30 AM CDT Office Visit [facility] - Endocrinology - [place] #2 [place] [address] Rita Lynne MD #[address] [address] 03/08/2025 9:45 AM CDT Office Visit [facility] Family Medicine [facility] #2 [place] [address] Aisha Medina APRN, FAGOT MAKER #[address] [address] documented as of this encounter Visit Diagnoses Not on filedocumented in this encounter Additional Health Concerns Assessment Noted Time PHQ-9 Depression Total Score: 0 03/01/20 21 10:00 AM CDT documented as of this encounter Care Teams Preforming Machine Operator Relationship Specialty Start Date End Date Aisha Medina APRN, KASSI #[address] [address] PCP - General Advanced Practice Nurse 07/17/18 Ariel Lua DPM Consulting Physician Podiatry 12/02/16 Juanjo Mclaughlin MD [address] [place] [address] Consulting Physician Oncology 12/01/19 Rita Lynne MD #[address] [address] Consulting Physician Endocrinology 10/17/22 Meron Gurrola, ZEINAB [place] Nurse Lead Cargo Mover 01/09/24 01/15/24 documented as of this encounter
--- OUTSIDE RECORDS SUMMARY | 2024-11-21 11:12 | XMS_ITS | Encounter Summary ---
Author Organization [facility] Address [address] [place] [address] Phone Care Team Providers Care Auto Service Instructor Name Role Phone Ariel Lua Nikhil DPM Unavailable [phone] Aisha Medina APRN, KASSI Primary Care Provid er Juanjo Mclaughlin MD Unavailable Rita Lynne MD Unavailable Meron Gurrola RN Unavailable Unavailable Reason for Visit * Reason Comments Medication Refill Encounter Details Date Type Department Care Team (Late st Contact Info) Description 01/29/2023 Refill [facility] Medical Group - Family Medicine [facility] #2 [place] [address] Aisha Medina APRN, KASSI #[address] [address] Medication Refill Social History Tobacco [...] encounter Miscellaneous Notes * Telephone Encounter - Kaitlyn Mendieta RN - 01/30/2023 8:24 AM CDT DPMP 12/26/22 30 day supply. Last OV 05/21/22 no future appt scheduled. Medication failed the protocol, provider to review and approve the medication order if appropriate. Requested Prescriptions Pending Prescriptions Disp Refills gabapentin (NEURONTIN) 300 MG Capsule [Pharmacy Med Name: GABAPENTIN 300MG CAPS] 30 Capsule 3 Sig: TAKE 1 CAPSULE BY MOUTH EVERY DAY NIGHTLY Not Delegated - Anticonvulsants Excluding Benzodiazepines Protocol Failed - 01/29/2023 2:04 AM Failed - This refill cannot be delegated Passed - Visit with relevant provider in past 12 months or upcoming 90 days Recent Visits Date Type Provider Dept 05/21/22 Office Visit Aisha Medina APRN, CNP [facility] 04/11/22 Office Visit Aisha Medina APRN, CNP [facility] Showing recent visits within past 365 days and meeting all other requirements Future Appointments No visits were found meeting these conditions. Showing future appointments within next 90 days and meeting all other requirements documented in this encounter Plan of Treatment Upcoming Encounters Date Type Department Care Team (Late st Contact Info) Description 01/18/2025 9:30 AM CDT Office Visit [facility] Medical Group - Endocrinology - [place] #2 [place] [address] Rita Lynne MD #2 [facility] [address] [place] [address] 03/08/2025 9:45 AM CDT Office Visit [facility] Medical [facility] - Family Medicine - [place] #2 [place] [address] Aisha Medina APRN, CNP #2 [facility] [address] [place] [address] documented as of this encounter Visit Diagnoses Diagnosis 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, not stated as uncontrolled documented in this encounter Additional Health Concerns Assessment Noted Time PHQ-9 Depression Total Score: 0 03/01/20 21 10:00 AM CDT documented as of this encounter Care Teams Auto Service Instructor Relationship Specialty Start Date End Date Aisha Medina APRN, KASSI #2 [facility] [address] [place] [address] PCP - General Advanced Practice Nurse 07/17/18 Ariel Lua DPM Consulting Physician Podiatry 12/02/16 Juanjo Mclaughlin MD [address] [place] [address] Consulting Physician Oncology 12/01/19 Rita Lynne MD #2 [facility] [address] [place] [address] Consulting Physician Endocrinology 10/17/22 Meron Gurrola RN [place] Nurse Taxi Driver Supervisor 01/09/24 01/15/24 documented as of this encounter
--- OUTSIDE RECORDS SUMMARY | 2024-11-21 11:12 | XMS_ITS | Encounter Summary ---
Author Organization [facility] Address [address] [place] [address] Phone Care Team Providers Care Bobbin Inspector Name Role Phone Ariel Lua Nikhil DPM Unavailable [phone] Aisha Medina APRN, CNP Primary Care Provid er Juanjo Mclaughlin MD Unavailable Rita Lynne MD Unavailable Meron Gurrola RN Unavailable Unavailable Reason for Visit * Reason Comments Medication Refill Encounter Details Date Type Department Care Team (Late st Contact Info) Description 05/24/2022 Refill [facility] Medical Group - Family Medicine [facility] #2 [place] [address] Aisha Medina APRN, KASSI #[address] [address] Medication Refill Social History [...] Coronavirus/COVID-19? No / Unsure 05/21/2022 12:41 PM COMMERCIAL HVAC SERVICE TECHNICIAN documented as of this encounter Miscellaneous Notes * Telephone Encounter - Emma Hernadez RN - 05/24/2022 9:41 AM COMMERCIAL HVAC SERVICE TECHNICIAN Refill requested too soon. 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, not stated as uncontrolled documented in this encounter Additional Health Concerns Assessment Noted Time PHQ-9 Depression Total Score: 0 03/01/20 21 10:00 AM CDT documented as of this encounter Care Teams Bobbin Inspector Relationship Specialty Start Date End Date Aisha Medina APRN, KASSI #[address] [address] PCP - General Advanced Practice Nurse 07/17/18 Ariel Lua DPM Consulting Physician Podiatry 12/02/16 Juanjo Mclaughlin MD [address] [address] Consulting Physician Oncology 12/01/19 Rita Lynne MD #[address] [address] Consulting Physician Endocrinology 10/17/22 Meron Gurrola RN [place] Nurse Rfid Systems Architect 01/09/24 01/15/24 documented as of this encounter
--- OUTSIDE RECORDS SUMMARY | 2024-11-21 11:12 | XMS_ITS | Encounter Summary ---
Author Organization [facility] Address [address] [place] [address] Phone Care Team Providers Care Road Gang Supervisor Name Role Phone Ariel Lua Nikhil DPM Unavailable [phone] Aisha Medina APRN, CNP Primary Care Provid er Juanjo Mclaughlin MD Unavailable Rita Lynne MD Unavailable Meron Gurrola RN Unavailable Unavailable Reason for Visit * Reason Comments Medication Refill Encounter Details Date Type Department Care Team (Late st Contact Info) Description 05/08/[address] [facility] Medical Group - Family Medicine [facility] #2 [place] [address] Aisha Medina APRN, KSASI #[address] [address] Medication Refill Social History Tobacco [...] Description 01/18/2025 9:30 AM CDT Office Visit [facility] - Endocrinology [facility] #2 [place] [address] Rita Lynne MD #[address] [address] 03/08/2025 9:45 AM CDT Office Visit [facility] - Family Medicine [facility] #2 [place] [address] Aisha Medina APRN, SYSTEMS LEAD #[address] [address] documented as of this encounter Visit Diagnoses [...] documented as of this encounter Care Teams Road Gang Supervisor Relationship Specialty Start Date End Date Aisha Medina APRN, SYSTEMS LEAD #[address] [address] PCP - General Advanced Practice Nurse 07/17/18 Ariel Lua DPM Consulting Physician Podiatry 12/02/16 Juanjo Mclaughlin MD [address] [address] Consulting Physician Oncology 12/01/19 Rita Lynne MD #[address] [address] Consulting Physician Endocrinology 10/17/22 Meron Gurrola RN [place] Nurse Resident Athletic Trainer 01/09/24 01/15/24 documented as of this encounter
--- OUTSIDE RECORDS SUMMARY | 2024-11-21 11:12 | XMS_ITS | Encounter Summary ---
Author Organization [facility] Address [address] [place] [address] Phone Care Team Providers Care Bulkhead Carpenter Name Role Phone Ariel Lua Nikhil DPM Unavailable [phone] Aisha Medina APRN, CONDUIT HELPER Primary Care Provid er Juanjo Mclaughlin MD Unavailable Rita Lynne MD Unavailable Meron Gurrola RN Unavailable Unavailable Reason for Visit * Reason Comments Medication Refill Encounter Details Date Type Department Care Team (Late st Contact Info) Description 12/07/2022 Refill [facility] #2 [place] [address] Jean-Paul Mcneal MD #[address] [address] Medication Refill Social History Tobacco Use Types [...] Telephone Encounter - Jade Vega RN - 12/09/2022 8:26 AM CDT Signed 3 days ago (12/06/2022): atorvastatin (LIPITOR) 40 MG Tablet Sig: TAKE ONE TABLET BY MOUTH EVERY DAY Disp: 90 Tablet ? Refills: 1 Signed by: Aisha Medina APRN, CNP [facility] documented in this encounter Plan of Treatment Upcoming Encounters Date Type Department Care Team (Late st Contact Info) Description 01/18/2025 9:30 AM CDT Office Visit [facility] Medical [facility] - Endocrinology - [place] #2 [place] [address] Rita Lynne MD #[address] [phone] 03/08/2025 9:45 AM CDT Office Visit [facility] Medical [facility] - Family Medicine - [place] #2 [facility] [address] Aisha Medina APRN, KASSI #2 [facility] [address] [place] [address] documented as of this encounter Visit Diagnoses Not on filedocumented in this encounter Additional Health Concerns Assessment Noted Time PHQ-9 Depression Total Score: 0 03/01/20 21 10:00 AM CDT documented as of this encounter Care Teams Bulkhead Carpenter Relationship Specialty Start Date End Date Aisha Medina APRN, CNP #2 [facility] [address] [place] [address] PCP - General Advanced Practice Nurse 07/17/18 Ariel Lua DPM Consulting Physician Podiatry 12/02/16 Juanjo Mclaughlin MD [address] [place] [address] Consulting Physician Oncology 12/01/19 Rita Lynne MD #[address] [address] Consulting Physician Endocrinology 10/17/22 Meron Gurrola, RN [place] Nurse Insurance Biller 01/09/24 01/15/24 documented as of this encounter
--- OUTSIDE RECORDS SUMMARY | 2024-11-21 11:12 | XMS_ITS | Encounter Summary ---
Author Organization [facility] Address [address] [place] [address] Phone Care Team Providers Care Pulpwood Buyer Name Role Phone Ariel Lua Nikhil DPM Unavailable [phone] Aisha Medina APRN, KASSI Primary Care Provid er Juanjo Mclaughlin MD Unavailable Rita Lynne MD Unavailable Meron Gurrola RN Unavailable Unavailable Reason for Visit * Reason Comments Medication Refill Encounter Details Date Type Department Care Team (Late st Contact Info) Description 11/23/2020 Refill [facility] Medical Group - Family Medicine [facility] #2 [place] [address] Aisha Medina APRN, KASSI #[address] [address] Medication Refill Social History Tobacco [...] encounter Miscellaneous Notes * Telephone Encounter - Sehr, Jade L, RN - 11/24/2020 1:26 PM CDT Medication failed the protocol, provider to review and approve the medication order if appropriate. 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) [facility] [place] [place] O[place] W[facility] 1 year ago 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) [facility] [place] O[place] WASH[place] 1 year ago Chest congestion [facility] PAC 1 year ago 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) [facility] [place] Plata APN, ORE WASHER 1 year ago Penile lesion [facility] [place] Upcoming Appointments Future Appointments In 3 weeks Rita Lynne MD [facility] Endocrinology - [facility] LOCK TENDER CHIEF OPERATOR - Recent and Past Visits Recent Visits Date Type Provider Dept 05/12/20 Office Visit Aisha Medina APN, ORE WASHER [facility] 11/01/19 Telemedicine Aisha Medina APN, CNP [facility] Showing recent visits within past 460 days with a meds authorizing provider and meeting all other requirements Future Appointments No visits were found meeting these conditions. Showing future appointments within next 90 days with a meds authorizing provider and meeting all other requirements * Telephone Encounter - Lamprecht, Kenya L, RN - 11/24/2020 11:39 AM CDT Pharmacy is calling about sildenafil refill. Asking if this can be approved as they will be closed due to the holiday. documented in this encounter Plan of Treatment Upcoming Encounters Date Type Department Care Team (Late st Contact Info) Description 01/18/2025 9:30 AM CDT Office Visit [facility] - Endocrinology [facility] #2 [place] [address] Rita Lynne MD #[address] [address] 03/08/2025 9:45 AM CDT Office Visit [facility] - Family Medicine [facility] #2 [place] [address] Aisha Medina APRN, ORE WASHER #2 [facility] [address] [place] [address] documented as of this encounter Visit Diagnoses Not on filedocumented in this encounter Additional Health Concerns Assessment Noted Time PHQ-9 Depression Total Score: 0 07/01/19 20 11:36 AM CENTRIFUGE SEPARATOR OPERATOR documented as of this encounter Care Teams Pulpwood Buyer Relationship Specialty Start Date End Date Aisha Medina APRN, ORE WASHER #2 [facility] [address] [place] [address] PCP - General Advanced Practice Nurse 07/17/18 Ariel Lua DPM Consulting Physician Podiatry 12/02/16 Juanjo Mclaughlin MD [address] [place] [address], [place] [address] Consulting Physician Oncology 12/01/19 Rita Lynne MD #[address] [address] Consulting Physician Endocrinology 10/17/22 Meron Gurrola RN [place] Nurse Cake Maker 01/09/24 01/15/24 documented as of this encounter
--- OUTSIDE RECORDS SUMMARY | 2024-11-21 11:12 | XMS_ITS | Encounter Summary ---
Author Organization [facility] Address [address] [place] [address] Phone Care Team Providers Care Regional Recruiter Name Role Phone Ariel Lua DPM Unavailable [phone] Aisha Medina APRN, CERTIFIED NUCLEAR MEDICINE TECHNOLOGIST Primary Care Provid er Juanjo Mclaughlin MD Unavailable Rita Lynne MD Unavailable Meron Gurrola RN Unavailable Unavailable Reason for Visit * Reason Comments Medication Refill Encounter Details Date Type Department Care Team (Late st Contact Info) Description 11/23/2020 Refill [facility] #2 [place] [address] Rita Lynne MD #[address] [address] Medication Refill Social History [...] Telephone Encounter - Tammy Mccartney RN - 11/23/2020 8:23 AM CDT Requested Prescriptions Pending Prescriptions Disp Refills ??? OneTouch Verio Strip [Pharmacy Med Name: ONETOUCH VERIO STRP] 3 Sig: USE TO TEST BLOOD SUGAR FOUR TIMES A DAY Next appt: 12/18/2020 documented in this encounter Plan of Treatment Upcoming Encounters Date Type Department Care Team (Late st Contact Info) Description 01/18/2025 9:30 AM CDT Office Visit [facility] - Endocrinology - [place] #2 [place] [address] Rita Lynne MD #[address] [address] 03/08/2025 9:45 AM CDT Office Visit [facility] - Family Medicine - [place] #2 [place] [address] Aisha Medina APRN, KASSI #2 [facility] [address] [place] [address] documented as of this encounter Visit Diagnoses Not on filedocumented in this encounter Additional Health Concerns Assessment Noted Time PHQ-9 Depression Total Score: 0 07/01/19 20 11:36 AM FACS TEACHER documented as of this encounter Care Teams Regional Recruiter Relationship Specialty Start Date End Date Aisha Medina APRN, CERTIFIED NUCLEAR MEDICINE TECHNOLOGIST #2 [facility] [address] [place] [address] PCP - General Advanced Practice Nurse 07/17/18 Ariel Lua DPM Consulting Physician Podiatry 12/02/16 Juanjo Mclaughlin MD [address] [address] Consulting Physician Oncology 12/01/19 Rita Lynne MD #[address] [address] Consulting Physician Endocrinology 10/17/22 Meron Gurrola, RN [place] Nurse Netsuite Developer 01/09/24 01/15/24 documented as of this encounter
--- OUTSIDE RECORDS SUMMARY | 2024-11-21 11:12 | XMS_ITS | Encounter Summary ---
Author Organization [facility] Address [address] [place] [address] Phone Care Team Providers Care Parenting Skills Instructor Name Role Phone Ariel Lua Nikhil DPM Unavailable [phone] Aisha Medina APRN, KASSI Primary Care Provid er Juanjo Mclaughlin MD Unavailable Rita Lynne MD Unavailable Meron Gurrola RN Unavailable Unavailable Reason for Visit * Reason Comments Medication Refill Encounter Details Date Type Department Care Team (Late st Contact Info) Description 06/16/2023 [facility]ill [facility] #2 [place] [address] Aisha Medina APRN, KASSI #[address] [address] Medication Refill Social History Tobacco [...] Telephone Encounter - Jade Vega RN - 06/16/2023 10:11 AM CST Medication failed the protocol, provider to review and approve the medication order if appropriate. Requested Prescriptions Pending Prescriptions Disp Refills gabapentin (NEURONTIN) 300 MG Capsule [Pharmacy Med Name: GABAPENTIN 300MG CAPS] 30 Capsule 0 Sig: TAKE ONE CAPSULE BY MOUTH NIGHTLY Not Delegated - Anticonvulsants Excluding Benzodiazepines Protocol Failed - 06/16/2023 2:09 AM Failed - This refill cannot be delegated Passed - Visit with relevant provider in past 12 months or upcoming 90 days Recent Visits No visits were found meeting these conditions. Showing recent visits within past 365 days and meeting all other requirements Future Appointments Date Type Provider Dept 07/01/23 Appointment Aisha Medina APRN, KASSI [facility] Showing future appointments within next 90 days and meeting all other requirements RKER documented in this encounter Plan of Treatment Upcoming Encounters Date Type Department Care Team (Late st Contact Info) Description 01/18/2025 9:30 AM CDT [facility] - Endocrinology - [place] #2 [place] [address] Rita Lynne MD #2 [facility] [address] [place] [address] 03/08/2025 9:45 AM CDT Office [facility] - Family Medicine - [place] #2 [place] [address] Aisha Medina APRN, BOAT PILOT #2 [facility] [address] [place] [address] documented as of this encounter Visit Diagnoses Diagnosis 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, not stated as uncontrolled documented in this encounter Additional Health Concerns Assessment Noted Time PHQ-9 Depression Total Score: 0 03/01/20 21 10:00 AM CDT documented as of this encounter Care Teams Parenting Skills Instructor Relationship Specialty Start Date End Date Aisha Medina APRN, CNP #2 [facility] [address] [place] [address] PCP - General Advanced Practice Nurse 07/17/18 Ariel Lua DPM Consulting Physician Podiatry 12/02/16 Juanjo Mclaughlin MD [address] [place] [address] Consulting Physician Oncology 12/01/19 Rita Lynne MD #2 [facility] [address] [place] [address] Consulting Physician Endocrinology 10/17/22 Meron Gurrola RN [place] Nurse Credit Risk Review Officer 01/09/24 01/15/24 documented as of this encounter
--- OUTSIDE RECORDS SUMMARY | 2024-11-21 11:12 | XMS_ITS | Encounter Summary ---
Author Organization [facility] Address [address] [place] [address] Phone Care Team Providers Care Polysomnographer Name Role Phone Ariel Lua Nikhil DPM Unavailable [phone] Aisha Medina APRN, KASSI Primary Care Provid er Juanjo Mclaughlin MD Unavailable Rita Lynne MD Unavailable Meron Gurrola RN Unavailable Unavailable Reason for Visit * Reason Comments Medication Refill Encounter Details Date Type Department Care Team (Late st Contact Info) Description 10/19/2023 Refill [facility] - Family Medicine [facility] #2 [place] [address] Aisha Medina APRN, KASSI #[address] [address] Medication Refill Social History Tobacco [...] encounter Miscellaneous Notes * Telephone Encounter - Gary Jade Miller RN - 10/20/2023 1:41 PM CDT Medication failed the protocol, provider to review and approve the medication order if appropriate. Requested Prescriptions Pending Prescriptions Disp Refills gabapentin (NEURONTIN) 300 MG Capsule [Pharmacy Med Name: GABAPENTIN 300MG CAPS] 90 Capsule 1 Sig: TAKE ONE CAPSULE BY MOUTH NIGHTLY Not Delegated - Anticonvulsants Excluding Benzodiazepines Protocol Failed - 10/19/2023 2:10 AM Failed - This refill cannot be delegated Passed - Visit with relevant provider in past 12 months or upcoming 90 days Recent Visits Date Type Provider Dept 07/07/23 Office Visit Aisha Medina APRN, CNP [facility] 07/01/23 Office Visit Aisha Medina APRN, KASSI [facility] Showing recent visits within past 365 days and meeting all other requirements Future Appointments Date Type Provider Dept 12/30/23 Appointment Aisha Medina APRN, CNP [facility] Showing future appointments within next 90 days and meeting all other requirements amLODIPine (NORVASC) 10 MG Tablet [Pharmacy Med Name: AMLODIPINE BESYLATE 10MG TABS] 90 Tablet 1 Sig: TAKE ONE TABLET BY MOUTH EVERY DAY Calcium-Channel Blockers Protocol Passed - 10/19/2023 2:10 AM Passed - BP on record in the past year Clinician-entered: BP Readings from Last 3 Encounters: 07/07/23 128/76 07/01/23 134/82 05/21/22 146/74 Patient-entered: No data recorded Passed - Visit with relevant provider in past 12 months or upcoming 90 days Recent Visits Date Type Provider Dept 07/07/23 Office Visit Aisha Medina APRN, CNP [facility] 07/01/23 Office Visit Aisha Medina APRN, KASSI [facility] Showing recent visits within past 365 days and meeting all other requirements Future Appointments Date Type Provider Dept 12/30/23 Appointment Aisha Medina APRN, KASSI [facility] Showing future appointments within next 90 days and meeting all other requirements rOPINIRole (REQUIP) 1 MG Tablet [Pharmacy Med Name: ROPINIROLE HCL 1MG TABS] 90 Tablet 1 Sig: TAKE ONE TABLET BY MOUTH NIGHTLY Antiparkinson Dopaminergics and COMT Protocol Passed - 10/19/2023 2:10 AM Passed - Visit with relevant provider in the past 9 months or upcoming 90 days Recent Visits Date Type Provider Dept 07/07/23 Office Visit Aisha Medina APRN, KASSI [place] 07/01/23 Office Visit Aisha Medina APRN, KAS[facility] Showing recent visits within past 270 days and meeting all other requirements Future Appointments Date Type Provider Dept 12/30/23 Appointment Aisha Medina APRN, KASSI [facility] Showing future appointments within next 90 days and meeting all other requirements Passed - Blood pressure on record in past 12 months Clinician-entered: BP Readings from Last 3 Encounters: 07/07/23 128/76 07/01/23 134/82 05/21/22 146/74 Patient-entered: No data recorded documented in this encounter Plan of Treatment Upcoming Encounters Date Type Department Care Team (Late st Contact Info) Description 01/18/2025 9:30 AM CDT Office Visit [facility] - Endocrinology - [place] #2 [place] [address] Rita Lynne MD #2 [facility] [address] [place] [address] 03/08/2025 9:45 AM CDT Office Visit [facility] - Family Medicine - [place] #2 [place] [address] Aisha Medina APRN, CNP #2 [facility] [address] [place] [address] documented as of this encounter Visit Diagnoses Diagnosis 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, not stated as uncontrolled Hypertension, unspecified type 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) Type I (juvenile type) diabetes mellitus with renal manifestations, not stated as uncontrolled RLS (restless legs syndrome) Restless legs syndrome (RLS) documented in this encounter Additional Health Concerns Assessment Noted Time PHQ-9 Depression Total Score: 0 07/07/19 24 2:00 PM COMMUNITY RELATIONS SPECIALIST documented as of this encounter Care Teams Polysomnographer Relationship Specialty Start Date End Date Aisha Medina APRN, IT PROJECT COORDINATOR #2 [facility] [address] [place] [address] PCP - General Advanced Practice Nurse 07/17/18 Ariel Lua DPM Consulting Physician Podiatry 12/02/16 Juanjo Mclaughlin MD [address] [place] [address] [id number] Consulting Physician Oncology 12/01/19 Rita Lynne MD #2 [facility] [address] [place] [phone] Consulting Physician Endocrinology 10/17/22 Meron Gurrola RN [place] Nurse Circus Agent 01/09/24 01/15/24 documented as of this encounter
--- OUTSIDE RECORDS SUMMARY | 2024-11-21 11:12 | XMS_ITS | Encounter Summary ---
Author Organization [facility] Address [address] [place] [address] Phone Care Team Providers Care Certified Social Workers In Health Care Name Role Phone Ariel Lua Nikhil DPM Unavailable [phone] Aisha Medina APRN, KASSI Primary Care Provid er Juanjo Mclaughlin MD Unavailable Rita Lynne MD Unavailable Meron Gurrola RN Unavailable Unavailable Reason for Visit * Reason Comments Medication Refill Encounter Details Date Type Department Care Team (Late st Contact Info) Description 07/12/2022 Refill [facility] Medical [facility] - Family Medicine [facility] #2 [place] [address] Aisha Medina APRN, KASSI #[address] [address] Medication Refill Social History Tobacco [...] Telephone Encounter - Jade Vega RN - 07/12/2022 10:17 AM CST Images from the original note were not included. rOPINIRole HCl Dispensed Days Supply Quantity Provider Pharmacy ROPINIROLE 1MG TAB 07/09/2022 30 30 Tablet Aisha Medina APRN, CNP [facility] Pharmac... UNTANT CONTROLLER documented in this encounter Plan of Treatment Upcoming Encounters Date Type Department Care Team (Late st Contact Info) Description 01/18/2025 9:30 AM CDT Office Visit [facility] - Endocrinology - [place] #2 [place] [address] Rita Lynne MD #[address] [place] [address] 03/08/2025 9:45 AM CDT Office Visit [facility] - Family Medicine - [place] #2 [place] [address] Aisha Medina APRN, CNP #2 [facility] [address] [place] [address] documented as of this encounter Visit Diagnoses [...] documented as of this encounter Care Teams Certified Social Workers In Health Care Relationship Specialty Start Date End Date Aisha Medina APRN, CNP #[address] [place] [address] PCP - General Advanced Practice Nurse 07/17/18 Ariel Lua DPM Consulting Physician Podiatry 12/02/16 Juanjo Mclaughlin MD [address] [address] Consulting Physician Oncology 12/01/19 Rita Lynne MD #[address] [address] Consulting Physician Endocrinology 10/17/22 Meron Gurrola, ZEINAB [place] Nurse Patient Financial Services Manager 01/09/24 01/15/24 documented as of this encounter
--- OUTSIDE RECORDS SUMMARY | 2024-11-21 11:12 | XMS_ITS | Encounter Summary ---
Author Organization [facility] Address [address] [place] [address] Phone Care Team Providers Care Route Delivery Driver Name Role Phone Ariel Lua Nikhil DPM Unavailable [phone] Aisha Medina APRN, KASSI Primary Care Provid er Juanjo Mclaughlin MD Unavailable Rita Lynne MD Unavailable Meron Gurrola RN Unavailable Unavailable Reason for Visit * Reason Comments Medication Refill Encounter Details Date Type Department Care Team (Late st Contact Info) Description 07/10/2022 Refill [facility] Medical Group - Family Medicine [facility] #2 [place] [address] Aisha Medina APRN, KASSI #[address] [address] Medication Refill Social History Tobacco [...] Description 01/18/2025 9:30 AM CDT Office Visit [facility] - Endocrinology - [place] #2 [place] [address] Rita Lynne MD #[address] [phone] 03/08/2025 9:45 AM CDT Office Visit [facility] - Family Medicine - [place] #2 [place] [address] Aisha Medina APRN, KASSI #[address] [phone] documented as of this encounter Visit Diagnoses [...] documented as of this encounter Care Teams Route Delivery Driver Relationship Specialty Start Date End Date Aisha Medina APRN, RESEARCH FELLOW #[address] [address] PCP - General Advanced Practice Nurse 07/17/18 Ariel Lua DPM Consulting Physician Podiatry 12/02/16 Juanjo Mclaughlin MD [address] [place] [address] Consulting Physician Oncology 12/01/19 Rita Lynne MD [facility] [address] Consulting Physician Endocrinology 10/17/22 Meron Gurrola, RN [place] Nurse Packaging Design Engineer 01/09/24 01/15/24 documented as of this encounter
--- OUTSIDE RECORDS SUMMARY | 2024-11-21 11:12 | XMS_ITS | Encounter Summary ---
Author Organization [facility] Address [address] [place] [address] Phone Care Team Providers Care Controller [place] Name Role Phone Ariel Lua Nikhil DPM Unavailable [phone] Aisha Medina APRN, HYDROLOGIC MODELER Primary Care Provid er Juanjo Mclaughlin MD Unavailable Rita Lynne MD Unavailable Meron Gurrola RN Unavailable Unavailable Reason for Visit * Reason Comments Medication Refill Encounter Details Date Type Department Care Team (Late st Contact Info) Description 09/04/2022 Refill [facility] #2 [place] [address] Jean-Paul Mcneal MD #[address] [address] Medication Refill Social History Tobacco Use Types [...] Telephone Encounter - Jade Vega RN - 09/05/2022 9:42 AM CST Medication failed the protocol, provider to review and approve the medication order if appropriate. Requested Prescriptions Pending Prescriptions Disp Refills ondansetron (ZOFRAN) 4 MG Tablet [Pharmacy Med Name: ONDANSETRON HCL 4MG TABS] 15 Tablet 0 Sig: TAKE ONE TABLET BY MOUTH EVERY 8 HOURS NEEDED FOR NAUSEA Not Delegated - 5-HT3 Antagonists Protocol Failed - 09/04/2022 2:23 PM Failed - This refill cannot be delegated Passed - Visit with relevant provider in past 12 months or upcoming 90 days Recent Visits Date Type Provider Dept 05/21/22 Office Visit Aisha Medina APRN, KASSI [facility] [place] 04/11/22 Office Visit Aisha Medina APRN, KASSI [facility] 12/11/21 Procedure Visit Claus Guaman MD [facility] [place] 12/04/21 Office Visit Aisha Medina APRN, KASSI [facility] 10/15/21 Office Visit Aisha Medina APRN, HYDROLOGIC MODELER [facility] Showing recent visits within past 365 days and meeting all other requirements Future Appointments Date Type Provider Dept 11/19/22 Appointment Aisha Medina APRN, HYDROLOGIC MODELER [facility] Showing future appointments within next 90 days and meeting all other requirements ING ROOM OPERATOR documented in this encounter Plan of Treatment Upcoming Encounters Date Type Department Care Team (Late st Contact Info) Description 01/18/2025 9:30 AM CDT Office Visit [facility] - Endocrinology - [place] [address] [place] [phone] Rita Lynne MD #[address] [facility] [address] [place] [address] 03/08/2025 9:45 AM CDT Office Visit [facility] - Family Medicine - [place] [address] [place] [address] Aisha Medina APRN, HYDROLOGIC MODELER #2 [facility] [address] [place] [address] documented as of this encounter Visit Diagnoses Not on filedocumented in this encounter Additional Health Concerns Assessment Noted Time PHQ-9 Depression Total Score: 0 03/01/20 21 10:00 AM CDT documented as of this encounter Care Teams Controller [place] Relationship Specialty Start Date End Date Aisha Medina APRN, HYDROLOGIC MODELER #2 [facility] [address] [place] [phone] PCP - General Advanced Practice Nurse 07/17/18 Ariel Lua DPM Consulting Physician Podiatry 12/02/16 Juanjo Mclaughlin MD [address] [place] [phone] Consulting Physician Oncology 12/01/19 Rita Lynne MD #[address] [phone] Consulting Physician Endocrinology 10/17/22 Meron Gurrola, RN [place] Nurse Nurse Substance Abuse 01/09/24 01/15/24 documented as of this encounter
--- OUTSIDE RECORDS SUMMARY | 2024-11-21 11:12 | XMS_ITS | Encounter Summary ---
Author Organization [facility] Address [address] [place] [address] Phone Care Team Providers Care Marine Pipefitter Name Role Phone Ariel Lua DPM Unavailable [phone] Aisha Medina APRN, PROFESSOR OF CRIMINAL JUSTICE Primary Care Provid er Juanjo Mclaughlin MD Unavailable Rita Lynne MD Unavailable Meron Gurrola RN Unavailable Unavailable Reason for Visit * Reason Comments Medication Refill Encounter Details Date Type Department Care Team (Late st Contact Info) Description 11/07/2020 Refill [facility] - Endocrinology [facility] #2 [place] [address] Rita Lynne MD #[address] [address] Medication Refill Social History Tobacco [...] Exposure Response Date Recorded In the last month, have you been in contact with someone who was confirmed or suspected to have Coronavirus / COVID-19? No / Unsure 10/19/2020 4:00 PM CDT documented as of this encounter Miscellaneous Notes * Telephone Encounter - Kaelyn Aguila CMA - 11/07/2020 9:02 AM CDT Medication was refilled 11/06/2020 documented in this encounter Plan of Treatment Upcoming Encounters Date Type Department Care Team (Late st Contact Info) Description 01/18/2025 9:30 AM CDT Office Visit [facility] - Endocrinology - [place] #2 [place] [address] Rita Lynne MD #[address] [address] 03/08/2025 9:45 AM CDT Office Visit [facility] - Family Medicine - [place] #2 [place] [address] Aisha Medina APRN, PROFESSOR OF CRIMINAL JUSTICE #2 [facility] [address] [place] [address] documented as of this encounter Visit Diagnoses Not on filedocumented in this encounter Additional Health Concerns Assessment Noted Time PHQ-9 Depression Total Score: 0 07/01/19 20 11:36 AM ELECTRICAL PROSPECTING OPERATOR documented as of this encounter Care Teams Marine Pipefitter Relationship Specialty Start Date End Date Aisha Medina APRN, PROFESSOR OF CRIMINAL JUSTICE #2 [facility] [address] [place] [address] PCP - General Advanced Practice Nurse 07/17/18 Ariel Lua DPM Consulting Physician Podiatry 12/02/16 Juanjo Mclaughlin MD [address] [place] [address] Consulting Physician Oncology 12/01/19 Rita Lynne MD #[address] [address] Consulting Physician Endocrinology 10/17/22 Meron Gurrola, RN [place] Nurse Inside Sales Lead 01/09/24 01/15/24 documented as of this encounter
--- OUTSIDE RECORDS SUMMARY | 2024-11-21 11:12 | XMS_ITS | Encounter Summary ---
Author Organization [facility] Address [address] [place] [address] Phone Care Team Providers Care Bone Char Kiln Tender Name Role Phone Ariel Lua Nikhil DPM Unavailable [phone] Aisha Medina APRN, KASSI Primary Care Provid er Juanjo Mclaughlin MD Unavailable Rita Lynne MD Unavailable Meron Gurrola RN Unavailable Unavailable Reason for Visit * Reason Comments Medication Refill Encounter Details Date Type Department Care Team (Late st Contact Info) Description 10/07/[address] [facility] Medical Group - Family Medicine [facility] #2 [place] [address] Aisha Medina APRN, KASSI #[address] [address] Medication Refill Social History Tobacco [...] Telephone Encounter - Emma Hernadez RN - 10/07/2022 10:59 AM CDT Medication failed the protocol, provider to review and approve the medication order if appropriate. Requested Prescriptions Pending Prescriptions Disp Refills rOPINIRole (REQUIP) 1 MG Tablet [Pharmacy Med Name: ROPINIROLE HCL 1MG TABS] 30 Tablet 2 Sig: TAKE ONE TABLET BY MOUTH NIGHTLY Antiparkinson Dopaminergics and COMT Protocol Passed - 10/07/2022 2:06 AM Passed - Visit with relevant provider in the past 9 months or upcoming 90 days Recent Visits Date Type Provider Dept 05/21/22 Office Visit Aisha Medina APRN, CNP [facility] 04/11/22 Office Visit Aisha Medina APRN, KASSI [facility] Showing recent visits within past 270 days and meeting all other requirements Future Appointments Date Type Provider Dept 11/19/22 Appointment Aisha Medina APRN, CNP [facility] [place] Showing future appointments within next 90 days and meeting all other requirements Passed - Blood pressure on record in past 12 months Clinician-entered: BP Readings from Last 3 Encounters: 05/21/22 146/74 04/11/22 126/74 12/11/21 150/76 Patient-entered: No data recorded gabapentin (NEURONTIN) 300 MG Capsule [Pharmacy Med Name: GABAPENTIN 300MG CAPS] 30 Capsule 3 Sig: TAKE ONE CAPSULE BY MOUTH EVERY DAY NIGHTLY Not Delegated - Anticonvulsants Excluding Benzodiazepines Protocol Failed - 10/07/2022 2:06 AM Failed - This refill cannot be delegated Passed - Visit with relevant provider in past 12 months or upcoming 90 days Recent Visits Date Type Provider Dept 05/21/22 Office Visit Aisha Medina APRN, CNP [facility] 04/11/22 Office Visit Aisha Medina APRN, CNP [facility] 12/11/21 Procedure Visit Claus Guaman MD [facility] 12/04/21 Office Visit Aisha Medina APRN, CNP [facility] 10/15/21 Office Visit Aisha Medina APRN, CNP [facility] Showing recent visits within past 365 days and meeting all other requirements Future Appointments Date Type Provider Dept 11/19/22 Appointment Aisha Medina APRN, CNP [facility] Showing future appointments within next 90 days and meeting all other requirements documented in this encounter Plan of Treatment Upcoming Encounters Date Type Department Care Team (Late st Contact Info) Description 01/18/2025 9:30 AM CDT Office Visit [facility] - Endocrinology - [place] #2 [facility] [place] [address] Rita Lynne MD #2 [facility] [address] [place] [address] 03/08/2025 9:45 AM CDT Office Visit [facility] - Family Medicine - [place] #2 [facility] [place] [address] Aisha Medina APRN, KASSI #2 [facility] [address] [place] [address] documented as of this encounter Visit Diagnoses Diagnosis 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) Type I (juvenile type) diabetes mellitus with renal manifestations, not stated as uncontrolled RLS (restless legs syndrome) Restless legs syndrome (RLS) 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, not stated as uncontrolled documented in this encounter Additional Health Concerns Assessment Noted Time PHQ-9 Depression Total Score: 0 03/01/20 21 10:00 AM CDT documented as of this encounter Care Teams Bone Char Kiln Tender Relationship Specialty Start Date End Date Aisha Medina APRN, CNP #2 [facility] [address] [place] [address] PCP - General Advanced Practice Nurse 07/17/18 Ariel Lua DPM Consulting Physician Podiatry 12/02/16 Juanjo Mclaughlin MD [address] [address] Consulting Physician Oncology 12/01/19 Rita Lynne MD #[address] [address] Consulting Physician Endocrinology 10/17/22 Meron Gurrola RN [place] Nurse Remotely Operated Vehicle 01/09/24 01/15/24 documented as of this encounter
--- OUTSIDE RECORDS SUMMARY | 2024-11-21 11:12 | XMS_ITS | Encounter Summary ---
Author Organization [facility] Address [address] [place] [address] Phone Care Team Providers Care Care Trainer Name Role Phone Ariel Lua Nikhil DPM Unavailable [phone] Aisha Medina APRN, KASSI Primary Care Provid er Juanjo Mclaughlin MD Unavailable Rita Lynne MD Unavailable Meron Gurrola RN Unavailable Unavailable Reason for Visit * Reason Comments Medication Refill Encounter Details Date Type Department Care Team (Late st Contact Info) Description 06/17/2023 Refill [facility] - Family Medicine [facility] [address]2 [place] [address] Aisha Medina APRN, KASSI [address] [address] Medication Refill Social History Tobacco [...] Telephone Encounter - Jade Vega RN - 06/17/2023 2:54 PM CST Medication failed the protocol, provider to review and approve the medication order if appropriate. Requested Prescriptions Pending Prescriptions Disp Refills rOPINIRole (REQUIP) 1 MG Tablet [Pharmacy Med Name: ROPINIROLE HCL 1MG TABS] 30 Tablet 2 Sig: TAKE ONE TABLET BY MOUTH NIGHTLY Antiparkinson Dopaminergics and COMT Protocol Failed - 06/17/2023 1:40 PM Failed - Blood pressure on record in past 12 months Clinician-entered: BP Readings from Last 3 Encounters: 05/21/22 146/74 04/11/22 126/74 12/11/21 150/76 Patient-entered: No data recorded Passed - Visit with relevant provider in the past 9 months or upcoming 90 days Recent Visits No visits were found meeting these conditions. Showing recent visits within past 270 days and meeting all other requirements Future Appointments Date Type Provider Dept 07/01/23 Appointment Aisha Medina APRN, KASSI [facility] Showing future appointments within next 90 days and meeting all other requirements Lantus SoloStar 100 UNIT/ML Solution Pen-injector [Pharmacy Med Name: LANTUS SOLOSTAR 100UNIT/ML SOPN] 30 mL 1 Sig: INJECT 28 UNITS UNDER THE SKIN NIGHTLY Not Delegated - Insulin Protocol Failed - 06/17/2023 1:40 PM Failed - This refill cannot be delegated Passed - Visit with relevant provider in past 12 months or upcoming 90 days Recent Visits No visits were found meeting these conditions. Showing recent visits within past 365 days and meeting all other requirements Future Appointments Date Type Provider Dept 07/01/23 Appointment Aisha Medina APRN, KASSI [facility] Showing future appointments within next 90 days and meeting all other requirements LIFT OPERATOR documented in this encounter Plan of Treatment Upcoming Encounters Date Type Department Care Team (Late st Contact Info) Description 01/18/2025 9:30 AM CDT Office Visit [facility] - Endocrinology - [place] [address]2 [place] [address] Rita Lynne MD #[address] [address] 03/08/2025 9:45 AM CDT Office Visit [facility] - Family [facility] #2 [place] [address] Aisha Medina APRN, PRODUCT MERCHANDISER [address] [address] documented as of this encounter Visit Diagnoses [...] documented as of this encounter Care Teams Care Trainer Relationship Specialty Start Date End Date Aisha Medina APRN, PRODUCT MERCHANDISER [address] [address] PCP - General Advanced Practice Nurse 07/17/18 Ariel Lua DPM Consulting Physician Podiatry 12/02/16 Juanjo Mclaughlin MD [address] [place] [address] Consulting Physician Oncology 12/01/19 Rita Lynne MD #[address] [address] Consulting Physician Endocrinology 10/17/22 Meron Gurrola RN [place] Nurse Hooking Machine Operator 01/09/24 01/15/24 documented as of this encounter
--- OUTSIDE RECORDS SUMMARY | 2024-11-21 11:12 | XMS_ITS | Encounter Summary ---
Author Organization [facility] Address [address] [place] [address] Phone Care Team Providers Care Country Singer Name Role Phone Ariel Lua Nikhil DPM Unavailable [phone] Aisha Medina APRN, KASSI Primary Care Provid er Juanjo Mclaughlin MD Unavailable Rita Lynne MD Unavailable Meron Gurrola RN Unavailable Unavailable Reason for Visit * Reason Comments Medication Refill Encounter Details Date Type Department Care Team (Late st Contact Info) Description 07/11/[address] [facility] - Family Medicine [facility] #2 [place] [address] Aisha Medina APRN, KASSI [address] [address] Medication Refill Social History Tobacco [...] Encounter - Sehr, Jade L, RN - 07/12/2020 9:07 AM CST Medication failed the protocol, provider to review and approve the medication order if appropriate. 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) [facility] Franco APN, CNP 8 months ago 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) [facility] - Aisha Plata APN, EDITOR PUBLICATIONS 1 year ago Chest congestion [facility] - Cherelle Woo PAC 1 year ago 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) [facility] - Aisha Plata APN EDITOR PUBLICATIONS 1 year ago Penile lesion [facility] - AnamIqra Gonzales PAC Upcoming Appointments HOUSEKEEPER MANAGER - Recent and Past Visits Recent Visits Date Type Provider Dept 05/12/20 Office Visit Aisha Medina APN, CNP [facility] 11/01/19 Telemedicine Aisha Medina APN, CNP [facility] 07/01/19 Office Visit Cherelle Vargas PAC [facility] 06/18/19 Office Visit Aisha Medina APN, KASSI [facility] [place] Showing recent visits within past 460 days with a meds authorizing provider and meeting all other requirements Future Appointments No visits were found meeting these conditions. Showing future appointments within next 90 days with a meds authorizing provider and meeting all other requirements Passed - Last BP in normal range BP Readings from Last 1 Encounters: 05/12/20 138/88 MATOR JEWELRY documented in this encounter Plan of Treatment Upcoming Encounters Date Type Department Care Team (Late st Contact Info) Description 01/18/2025 9:30 AM CDT Office Visit [facility] - Endocrinology - [place] #2 [place] [address] Rita Lynne MD #[address] [phone] 03/08/2025 9:45 AM CDT Office Visit [facility] - Family Medicine - [place] #2 [place] [address] Aisha Medina APRN, CNP #[address] [phone] documented as of this encounter Visit Diagnoses Not on filedocumented in this encounter Additional Health Concerns Assessment Noted Time PHQ-9 Depression Total Score: 0 07/01/19 20 11:36 AM ESTIMATOR JEWELRY documented as of this encounter Care Teams Country Singer Relationship Specialty Start Date End Date Aisha Medina APRN, KASSI [address] [phone] PCP - General Advanced Practice Nurse 07/17/18 Ariel Lua DPM Consulting Physician Podiatry 12/02/16 Juanjo Mclaughlin MD [address] [place] [phone] Consulting Physician Oncology 12/01/19 Rita Lynne MD #[address] [phone] Consulting Physician Endocrinology 10/17/22 Meron Gurrola, RN [place] Nurse Shank Paperer 01/09/24 01/15/24 documented as of this encounter
--- OUTSIDE RECORDS SUMMARY | 2024-11-21 11:12 | XMS_ITS | Encounter Summary ---
Author Organization [facility] Address [address] [place] [address] Phone Care Team Providers Care Sampler Ovens Name Role Phone Ariel Lua DPM Unavailable [phone] Aisha Medina APRN, PLANT AND MACHINERY VALUER Primary Care Provid er Juanjo Mclaughlin MD Unavailable Rita Lynne MD Unavailable Meron Gurrola RN Unavailable Unavailable Reason for Visit * Reason Comments Medication Refill Encounter Details Date Type Department Care Team (Late st Contact Info) Description 11/21/2020 Refill [facility] #2 [place] [address] Rita Lynne MD #[address] [address] Medication Refill Social History Tobacco [...] Telephone Encounter - Tammy Mccartney RN - 11/21/2020 8:25 AM CDT Requested Prescriptions Pending Prescriptions Disp Refills ??? OneTouch Verio Strip [Pharmacy Med Name: ONETOUCH VERIO STRP] 3 Sig: USE TO TEST BLOOD SUGAR FOUR TIMES A DAY Next appt: 12/18/2020 documented in this encounter Plan of Treatment Upcoming Encounters Date Type Department Care Team (Late st Contact Info) Description 01/18/2025 9:30 AM CDT Office Visit [facility] - Endocrinology - [place] [address]2 [place] [address] Rita Lynne MD #[address] [address] 03/08/2025 9:45 AM CDT Office Visit [facility] - Family Medicine - [place] #2 [place] [address] Aisha Medina APRN, KASSI #[address] [facility] [address] [place] [address] documented as of this encounter Visit Diagnoses Not on filedocumented in this encounter Additional Health Concerns Assessment Noted Time PHQ-9 Depression Total Score: 0 07/01/19 20 11:36 AM SOAKING PITS SUPERVISOR documented as of this encounter Care Teams Sampler Ovens Relationship Specialty Start Date End Date Aisha Medina APRN, PLANT AND MACHINERY VALUER #[address] [facility] [address] [place] [address] PCP - General Advanced Practice Nurse 07/17/18 Ariel Lua DPM Consulting Physician Podiatry 12/02/16 Juanjo Mclaughlin MD [address] [address] Consulting Physician Oncology 12/01/19 Rita Lynne MD #[address] [phone] Consulting Physician Endocrinology 10/17/22 Meron Gurrola, RN [place] Nurse Lead Systems Analyst 01/09/24 01/15/24 documented as of this encounter
--- OUTSIDE RECORDS SUMMARY | 2024-11-21 11:12 | XMS_ITS | Encounter Summary ---
Author Organization [facility] Address [address] [place] [address] Phone Care Team Providers Care Sofa Cover Inspector Name Role Phone Ariel Lua Nikhil DPM Unavailable [phone] Aisha Medina APRN, KASSI Primary Care Provid er Juanjo Mclaughlin MD Unavailable Rita Lynne MD Unavailable Meron Gurrola RN Unavailable Unavailable Reason for Visit * Reason Comments Medication Refill Encounter Details Date Type Department Care Team (Late st Contact Info) Description 12/23/2022 Refill [facility] - Family Medicine [facility] #2 [place] [address] Aisha Medina APRN, KASSI #[address] [address] Medication Refill Social History Tobacco [...] Telephone Encounter - Jade Vega RN - 12/23/2022 5:11 PM CDT PRN medication requires review from provider Per nursing clinical judgement, provider to review and approve the medication(s) order(s) if appropriate. Requested Prescriptions Pending Prescriptions Disp Refills sildenafil citrate (VIAGRA) 100 MG Tablet [Pharmacy Med Name: Sildenafil Citrate 100 MG Oral Tablet] 30 Tablet 0 Sig: TAKE 1 TABLET BY MOUTH NEEDED FOR ERECTILE DYSFUNCTION Erectile Dysfunction Medication Protocol Failed - 12/23/2022 12:04 PM Failed - Erectile dysfunction on problem list Passed - Visit with relevant provider in past 12 months or upcoming 90 days Recent Visits Date Type Provider Dept 05/21/22 Office Visit Aisha Medina APRN, CNP [facility] 04/11/22 Office Visit Aisha Medina APRN, CNP [facility] Showing recent visits within past 365 [...] 01/18/2025 9:30 AM CDT Office Visit [facility] - Endocrinology - [place] #2 [place] [address] Rita Lynne MD #[address] [facility] [address] [place] [address] 03/08/2025 9:45 AM CDT Office Visit [facility] - Family Medicine [facility] #2 [place] [address] Aisha Medina APRN, CNP #[address] [facility] [address] [place] [address] documented as of this encounter Visit Diagnoses Not on filedocumented in this encounter Additional Health Concerns Assessment Noted Time PHQ-9 Depression Total Score: 0 03/01/20 21 10:00 AM CDT documented as of this encounter Care Teams Sofa Cover Inspector Relationship Specialty Start Date End Date Aisha Medina APRN, CNP #[address] [facility] [address] [place] [address] PCP - General Advanced Practice Nurse 07/17/18 Ariel Lua DPM Consulting Physician Podiatry 12/02/16 Juanjo Mclaughlin MD [address] [place] [address] Consulting Physician Oncology 12/01/19 Rita Lynne MD #[address] [facility] [address] [place] [address] Consulting Physician Endocrinology 10/17/22 Meron Gurrola, ZEINAB [place] Nurse Oncology Coordinator 01/09/24 01/15/24 documented as of this encounter
--- OUTSIDE RECORDS SUMMARY | 2024-11-21 11:12 | XMS_ITS | Encounter Summary ---
Author Organization [facility] Address [address] [place] [address] Phone Care Team Providers Care Irrigator Overhead Name Role Phone Ariel Lua Nikhil DPM Unavailable [phone] Aisha Medina APRN, KASSI Primary Care Provid er Juanjo Mclaughlin MD Unavailable Rita Lynne MD Unavailable Meron Gurrola RN Unavailable Unavailable Reason for Visit * Reason Comments Medication Refill Encounter Details Date Type Department Care Team (Late st Contact Info) Description 02/21/2023 Refill [facility] - Family Medicine [facility] #2 [place] [address] Aisha Medina APRN, KASSI #[address] [address] Medication Refill Social History Tobacco [...] Telephone Encounter - Jade Vega RN - 02/21/2023 2:15 PM CDT Medication failed the protocol, provider to review and approve the medication order if appropriate. Requested Prescriptions Pending Prescriptions Disp Refills ondansetron (ZOFRAN) 4 MG Tablet [Pharmacy Med Name: ONDANSETRON HCL 4MG TABS] 15 Tablet 0 Sig: TAKE ONE TABLET BY MOUTH EVERY 8 HOURS NEEDED FOR NAUSEA Not Delegated - 5-HT3 Antagonists Protocol Failed - 02/21/2023 11:41 AM Failed - This refill cannot be delegated Passed - Visit with relevant provider in past 12 months or upcoming 90 days Recent Visits Date Type Provider Dept 05/21/22 Office Visit Aisha Medina APRN, CNP [facility] 04/11/22 Office Visit Aisha Medina APRN, CNP [facility] Showing recent visits within past 365 days and meeting all other requirements Future Appointments No visits were found meeting these conditions. Showing future appointments within next 90 days and meeting all other requirements documented in this encounter Plan of Treatment Upcoming Encounters Date Type Department Care Team (Late st Contact Info) Description 01/18/2025 9:30 AM CDT Office Visit [facility] - Endocrinology - [place] #2 [place] [address] Rita Lynne MD #2 [facility] [address] [place] [address] 03/08/2025 9:45 AM CDT Office Visit [facility] - Family Medicine [facility] #2 [place] [address] Aisha Medina APRN, CNP #2 [facility] [address] [place] [address] documented as of this encounter Visit Diagnoses Not on filedocumented in this encounter Additional Health Concerns Assessment Noted Time PHQ-9 Depression Total Score: 0 03/01/20 21 10:00 AM CDT documented as of this encounter Care Teams Irrigator Overhead Relationship Specialty Start Date End Date Aisha Medina APRN, CNP #2 [facility] [address] [place] [address] PCP - General Advanced Practice Nurse 07/17/18 Ariel Lua DPM Consulting Physician Podiatry 12/02/16 Juanjo Mclaughlin MD [facility] [address] [address] Consulting Physician Oncology 12/01/19 Rita Lynne MD #2 [facility] [address] [place] [address] Consulting Physician Endocrinology 10/17/22 Meron Gurrola RN [place] Nurse Salesperson [employer] 01/09/24 01/15/24 documented as of this encounter
--- OUTSIDE RECORDS SUMMARY | 2024-11-21 11:12 | XMS_ITS | Encounter Summary ---
Author Organization [facility] Address [address] [place] [address] Phone Care Team Providers Care Bar Machine Operator Name Role Phone Ariel Lua Nikhil DPM Unavailable [phone] Aisha Medina APRN, KASSI Primary Care Provid er Juanjo Mclaughlin MD Unavailable Rita Lynne MD Unavailable Meron Gurrola RN Unavailable Unavailable Reason for Visit * Reason Comments Medication Refill Encounter Details Date Type Department Care Team (Late st Contact Info) Description 09/06/2022 Refill [facility] - Family Medicine [facility] #2 [place] [address] Aisha Medina APRN, KASSI #[address] [address] Medication Refill Social History Tobacco [...] Telephone Encounter - Jade Vega RN - 09/06/2022 10:07 AM CST duplicate RINARY MEAT INSPECTOR documented in this encounter Plan of Treatment Upcoming Encounters Date Type Department Care Team (Late st Contact Info) Description 01/18/2025 9:30 AM CDT Office Visit [facility] Medical [facility] - Endocrinology - [place] #2 [place] [address] Rita Lynne MD #[address] [phone] 03/08/2025 9:45 AM CDT Office Visit [facility] - Family Medicine - [place] #2 [place] [address] Aisha Medina APRN, DRESSED POULTRY GRADER #[address] [address] documented as of this encounter Visit Diagnoses Diagnosis Hypertension, unspecified type documented in this encounter Additional Health Concerns Assessment Noted Time PHQ-9 Depression Total Score: 0 03/01/20 21 10:00 AM CDT documented as of this encounter Care Teams Bar Machine Operator Relationship Specialty Start Date End Date Aisha Medina APRN, DRESSED POULTRY GRADER #[address] [address] PCP - General Advanced Practice Nurse 07/17/18 Ariel Lua DPM Consulting Physician Podiatry 12/02/16 Juanjo Mclaughlin MD [address] [place] [address] Consulting Physician Oncology 12/01/19 Rita Lynne MD #[address] [address] Consulting Physician Endocrinology 10/17/22 Meron Gurrola RN [place] Nurse Bone Char Kiln Operator 01/09/24 01/15/24 documented as of this encounter
--- OUTSIDE RECORDS SUMMARY | 2024-11-21 11:12 | XMS_ITS | Encounter Summary ---
Author Organization [facility] Address [address] [place] [address] Phone Care Team Providers Care Diet Attendant Name Role Phone Ariel Lua Nikhil DPM Unavailable [phone] Aisha Medina APRN, KASSI Primary Care Provid er Juanjo Mclaughlin MD Unavailable Rita Lynne MD Unavailable Meron Gurrola RN Unavailable Unavailable Reason for Visit * Reason Comments Medication Refill Encounter Details Date Type Department Care Team (Late st Contact Info) Description 02/17/2020 Refill [facility] - Family Medicine [facility] #2 [place] [address] Aisha Medina APRN, KASSI #[address] [address] Medication Refill Social History Tobacco [...] have Coronavirus / COVID-19? No / Unsure 02/15/2020 4:55 PM CDT documented as of this encounter Miscellaneous Notes * Telephone Encounter - Lorena Ram - 02/18/2020 1:20 PM CDT Medication failed the protocol provider to review and approve the medication order. 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) [facility] Aisha Medina APN, PLANT PROTECTION GUARD 7 months ago Chest congestion [facility] - Primary Care Cherelle Vargas, PAC 8 months ago 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) [facility] - Primary Care Aisha Medina APN, PLANT PROTECTION GUARD 11 months ago Penile lesion [facility] - Primary Care Iqra Leon PAC 11 months ago Genital sore [facility] - Primary Care Aisha Medina APN, PLANT PROTECTION GUARD Upcoming Appointments Future Appointments In 2 months Rita Lynne MD [facility] - Diabetes & Endocrinology, [facility] WRAPPER HANDS SPRAYER - Recent and Past Visits Recent Visits Date Type Provider Dept 11/01/19 Telemedicine Aisha Medina APN, PLANT PROTECTION GUARD [facility] 07/01/19 Office Visit Cherelle Vargas PAC [facility] 06/18/19 Office Visit Aisha Medina APN, PLANT PROTECTION GUARD [facility] 03/19/19 Office Visit Iqra Leon PAC [facility] 03/08/19 Office Visit Aisha Medina APN, PLANT PROTECTION GUARD [facility] Showing recent visits within past 460 days with a meds authorizing provider and meeting all other requirements Future Appointments No visits were found meeting these conditions. Showing future appointments within next 90 days with a meds authorizing provider and meeting all other requirements Passed - Last BP in normal range BP Readings from Last 1 Encounters: 01/27/20 124/80 documented in this encounter Plan of Treatment Upcoming Encounters Date Type Department Care Team (Late st Contact Info) Description 01/18/2025 9:30 AM CDT Office Visit [facility] Medical [facility] - Endocrinology - [place] #2 [place] [address] Rita Lynne MD #[address] [address] 03/08/2025 9:45 AM CDT Office Visit [facility] - Family Medicine - [place] #2 [place] [address] Aisha Medina APRN, KASSI #[address] [address] documented as of this encounter Visit Diagnoses Not on filedocumented in this encounter Additional Health Concerns Assessment Noted Time PHQ-9 Depression Total Score: 0 07/01/19 20 11:36 AM COMPLETION SUPERVISOR documented as of this encounter Care Teams Diet Attendant Relationship Specialty Start Date End Date Aisha Medina APRN, KASSI #[address] [address] PCP - General Advanced Practice Nurse 07/17/18 Ariel Lua DPM Consulting Physician Podiatry 12/02/16 Juanjo Mclaughlin MD [address] [place] [address] Consulting Physician Oncology 12/01/19 Rita Lynne MD #[address] [address] Consulting Physician Endocrinology 10/17/22 Meron Gurrola RN [place] Nurse Psychology Intern 01/09/24 01/15/24 documented as of this encounter
--- OUTSIDE RECORDS SUMMARY | 2024-11-21 11:12 | XMS_ITS | Encounter Summary ---
Author Organization [facility] Address [address] [place] [address] Phone Care Team Providers Care Financial Agent Name Role Phone Ariel Lua Nikhil DPM Unavailable [phone] Aisha Medina APRN, KASSI Primary Care Provid er Juanjo Mclaughlin MD Unavailable Rita Lynne MD Unavailable Meron Gurrola RN Unavailable Unavailable Reason for Visit * Reason Comments Medication Refill Encounter Details Date Type Department Care Team (Late st Contact Info) Description 08/25/2020 Refill [facility] - Family Medicine [facility] #2 [place] [address] Aisha Medina APRN, KASSI #[address] [address] Medication Refill Social History Tobacco [...] Description 01/18/2025 9:30 AM CDT Office Visit [facility] Medical [facility] - Endocrinology - [place] #2 [place] [address] Rita Lynne MD #[address] [address] 03/08/2025 9:45 AM CDT Office Visit [facility] - Family Medicine - [place] #2 [place] [address] Aisha Medina APRN, CENTRAL SUPPLY WORKER #[address] [address] documented as of this encounter Visit Diagnoses Diagnosis Burning sensation of skin documented in this encounter Additional Health Concerns Assessment Noted Time PHQ-9 Depression Total Score: 0 07/01/19 11:36 AM ROCK CLIMBING INSTRUCTOR documented as of this encounter Care Teams Financial Agent Relationship Specialty Start Date End Date Aisha Medina APRN, KASSI #[address] [address] PCP - General Advanced Practice Nurse 07/17/18 Ariel Lua DPM Consulting Physician Podiatry 12/02/16 Juanjo Mclaughlin MD [address] [place] [address] Consulting Physician Oncology 12/01/19 Rita Lynne MD #[address] [address] Consulting Physician Endocrinology 10/17/22 Meron Gurrola, RN [place] Nurse Brazer Crawler Torch 01/09/24 01/15/24 documented as of this encounter
--- OUTSIDE RECORDS SUMMARY | 2024-11-21 11:12 | XMS_ITS | Encounter Summary ---
Author Organization [facility] Address [address] [place] [address] Phone Care Team Providers Care Flight Purser Name Role Phone Ariel Lua Nikhil DPM Unavailable [phone] Aisha Medina APRN, ROLLER MILL OPERATOR Primary Care Provid er Juanjo Mclaughlin MD Unavailable Rita Lynne MD Unavailable Meron Gurrola RN Unavailable Unavailable Reason for Visit * Reason Comments Medication Refill Encounter Details Date Type Department Care Team (Late st Contact Info) Description 09/05/2022 [facility]ill [facility] #2 [place] [address] Rita Lynne MD #[address] [address] Medication Refill Social History Tobacco [...] Telephone Encounter - Tammy Mccartney RN - 09/10/2022 8:16 AM CDT Requested Prescriptions Pending Prescriptions Disp Refills ??? Continuous Blood Gluc Transmit (Dexcom G6 Transmitter) Misc [Pharmacy Med Name: DEXCOM G6 TRANSMITTER MISC] 1 Each 3 Sig: CHANGE TRANSMITTER EVERY 90 DAYS Message sent to schedule follow up. documented in this encounter Plan of Treatment Upcoming Encounters Date Type Department Care Team (Late st Contact Info) Description 01/18/2025 9:30 AM CDT Office Visit [facility] - Endocrinology - [place] #2 [place] [address] Rita Lynne MD #[address] [address] 03/08/2025 9:45 AM CDT Office Visit [facility] Medical [facility] - Family Medicine [facility] #2 [place] [address] Aisha Medina APRN, ROLLER MILL OPERATOR #2 [facility] [address] [place] [address] documented as of this encounter Visit Diagnoses Not on filedocumented in this encounter Additional Health Concerns Assessment Noted Time PHQ-9 Depression Total Score: 0 03/01/20 21 10:00 AM CDT documented as of this encounter Care Teams Flight Purser Relationship Specialty Start Date End Date Aisha Medina APRN, ROLLER MILL OPERATOR #2 [facility] [address] [place] [address] PCP - General Advanced Practice Nurse 07/17/18 Ariel Lua DPM Consulting Physician Podiatry 12/02/16 Juanjo Mclaughlin MD [facility] [address] Consulting Physician Oncology 12/01/19 Rita Lynne MD #[address] [address] Consulting Physician Endocrinology 10/17/22 Meron Gurrola, RN [place] Nurse Crystal Grinder 01/09/24 01/15/24 documented as of this encounter
--- OUTSIDE RECORDS SUMMARY | 2024-11-21 11:12 | XMS_ITS | Encounter Summary ---
Author Organization [facility] Address [address] [place] [address] Phone Care Team Providers Care Automotive Electrician Helper Name Role Phone Ariel Lua Nikhil DPM Unavailable [phone] Aisha Medina APRN, BLASTING CONTRACT MINER Primary Care Provid er Juanjo Mclaughlin MD Unavailable Rita Lynne MD Unavailable Meron Gurrola RN Unavailable Unavailable Reason for Visit * Reason Comments Medication Refill Encounter Details Date Type Department Care Team (Late st Contact Info) Description 06/08/2022 Refill [facility] #2 [place] [address] Rita Lynne MD #[address] [address] Medication Refill Social History Tobacco [...] Coronavirus/COVID-19? No / Unsure 05/21/2022 12:41 PM FOREIGN LANGUAGE INSTRUCTOR documented as of this encounter Miscellaneous Notes * Telephone Encounter - Tammy Mccartney, RN - 06/11/2022 8:06 AM FOREIGN LANGUAGE INSTRUCTOR Requested Prescriptions Pending Prescriptions Disp Refills ??? Continuous Blood Gluc Sensor (Dexcom G6 Sensor) Misc [Pharmacy Med Name: DEXCOM G6 SENSOR MISC]3 Each 3 Sig: CHANGE SENSOR EVERY 10 DAYS Next appt: Message left to schedule follow up. IGN LANGUAGE INSTRUCTOR documented in this encounter Plan of Treatment Upcoming Encounters Date Type Department Care Team (Late st Contact Info) Description 01/18/2025 9:30 AM CDT Office Visit [facility] Medical Group - Endocrinology - [place] #2 [place] [address] Rita Lynne MD #[address] [address] 03/08/2025 9:45 AM CDT Office Visit [facility] Medical Group - Family Medicine - [place] #2 [place] [address] Aisha Medina APRN, KASSI #[address] [address] documented as of this encounter Visit Diagnoses Not on filedocumented in this encounter Additional Health Concerns Assessment Noted Time PHQ-9 Depression Total Score: 0 03/01/20 21 10:00 AM CDT documented as of this encounter Care Teams Automotive Electrician Helper Relationship Specialty Start Date End Date Aisha Medina APRN, CNP #[address] [address] PCP - General Advanced Practice Nurse 07/17/18 Ariel Lua DPM Consulting Physician Podiatry 12/02/16 Juanjo Mclaughlin MD [address] [address] Consulting Physician Oncology 12/01/19 Rita Lynne MD #[address] [address] Consulting Physician Endocrinology 10/17/22 Meron Gurrola, RN [place] Nurse Television Program Director 01/09/24 01/15/24 documented as of this encounter
--- OUTSIDE RECORDS SUMMARY | 2024-11-21 11:12 | XMS_ITS | Encounter Summary ---
Author Organization [facility] Address [address] [place] [address] Phone Care Team Providers Care Oyster Harvester Name Role Phone Ariel Lua Nikhil DPM Unavailable [phone] Aisha Medina APRN, KASSI Primary Care Provid er Juanjo Mclaughlin MD Unavailable Rita Lynne MD Unavailable Meron Gurrola RN Unavailable Unavailable Reason for Visit * Reason Comments Medication Refill Encounter Details Date Type Department Care Team (Late st Contact Info) Description 07/11/2022 Refill [facility] Medical Group - Family Medicine [facility] #2 [place] [address] Aisha Medina APRN, KASSI #[address] [address] Medication Refill Social History Tobacco [...] Telephone Encounter - Emma Hernadez RN - 07/11/2022 10:58 AM FAMILY LITERACY COORDINATOR Refilled 07/09/2022 LY LITERACY COORDINATOR documented in this encounter Plan of Treatment Upcoming Encounters Date Type Department Care Team (Late st Contact Info) Description 01/18/2025 9:30 AM CDT Office Visit [facility] - Endocrinology - [place] #2 [place] [address] Rita Lynne MD #[address] [address] 03/08/2025 9:45 AM CDT Office Visit [facility] Family Medicine - [place] #2 [place] [address] Aisha Medina APRN, MAINTENANCE CLERK #[address] [address] documented as of this encounter Visit Diagnoses [...] documented as of this encounter Care Teams Oyster Harvester Relationship Specialty Start Date End Date Aisha Medina APRN, MAINTENANCE CLERK #[address] [phone] PCP - General Advanced Practice Nurse 07/17/18 Ariel Lua DPM Consulting Physician Podiatry 12/02/16 Juanjo Mclaughlin MD [address] [place] [address] Consulting Physician Oncology 12/01/19 Rita Lynne MD #[address] [address] Consulting Physician Endocrinology 10/17/22 Meron Gurrola, RN [place] Nurse Metal Spinner 01/09/24 01/15/24 documented as of this encounter
--- OUTSIDE RECORDS SUMMARY | 2024-11-21 11:12 | XMS_ITS | Encounter Summary ---
Author Organization [facility] Address [address] [place] [address] Phone Care Team Providers Care Cable Tower Operator Name Role Phone Ariel Lua Nikhil DPM Unavailable [phone] Aisha Medina APRN, KASSI Primary Care Provid er Juanjo Mclaughlin MD Unavailable Rita Lynne MD Unavailable Meron Gurrola RN Unavailable Unavailable Reason for Visit * Reason Comments Medication Refill Encounter Details Date Type Department Care Team (Late st Contact Info) Description 12/27/2022 Refill [facility] Medical Group - Family Medicine [facility] #2 [place] [address] Aisha Medina APRN, KASSI #[address] [address] Medication Refill Social History Tobacco [...] Telephone Encounter - Jade Vega RN - 01/02/2023 8:03 AM CDT Signed 1 week ago (12/25/2022): rOPINIRole (REQUIP) 1 MG Tablet Sig: TAKE 1 TABLET BY MOUTH NIGHTLY Disp: 30 Tablet ? Refills: 2 Signed by: Aisha Medina APRN, KASSI [facility] * Telephone Encounter - Kaitlyn Mendieta RN - 12/27/2022 12:12 PM CDT Duplicate documented in this encounter Plan of Treatment Upcoming Encounters Date Type Department Care Team (Late st Contact Info) Description 01/18/2025 9:30 AM CDT Office Visit [facility] Medical Group - Endocrinology - [place] #2 [place] [address] Rita Lynne MD #2 [facility] [address] [place] [address] 03/08/2025 9:45 AM CDT Office Visit [facility] Medical [facility] - Family Medicine - [place] #2 [place] [address] Aisha Medina APRN, BRAND STRATEGY MANAGER #2 [facility] [address] [place] [address] documented as of this encounter Visit Diagnoses [...] documented as of this encounter Care Teams Cable Tower Operator Relationship Specialty Start Date End Date Aisha Medina APRN, CNP #2 [facility] [address] [place] [address] PCP - General Advanced Practice Nurse 07/17/18 Ariel Lua DPM Consulting Physician Podiatry 12/02/16 Juanjo Mclaughlin MD [address] [place] [phone] Consulting Physician Oncology 12/01/19 Rita Lynne MD #2 [facility] [address] [place] [address] Consulting Physician Endocrinology 10/17/22 Meron Gurrola, ZEINAB [place] Nurse Chicken Hatchery Helper 01/09/24 01/15/24 documented as of this encounter
--- OUTSIDE RECORDS SUMMARY | 2024-11-21 11:12 | XMS_ITS | Encounter Summary ---
Author Organization [facility] Address [address] [place] [address] Phone Care Team Providers Care It Programmer Name Role Phone Ariel Lua Nikhil DPM Unavailable [phone] Aisha Medina APRN, OUTREACH TEAM MEMBER Primary Care Provid er Juanjo Mclaughlin MD Unavailable Rita Lynne MD Unavailable Meron Gurrola RN Unavailable Unavailable Reason for Visit * Reason Comments Medication Refill Encounter Details Date Type Department Care Team (Late st Contact Info) Description 09/21/2022 Refill [facility] - Endocrinology [facility] #2 [place] [address] Rita Lynne MD #[address] [address] Medication Refill Social History Tobacco [...] Telephone Encounter - Tammy Mccartney RN - 09/24/2022 9:59 AM CDT Requested Prescriptions Pending Prescriptions Disp Refills ??? Insulin Pen Needle (TRUEplus 5-Bevel Pen [place]) 31G X 6 MM Misc [Pharmacy Med Name: TRUEPLUS 5-BEVEL PE 31G X 6 MM MISC] 400 Each 3 Sig: USE 4 TIMES A DAY Next appt: Message sent to schedule follow up. documented in this encounter Plan of Treatment Upcoming Encounters Date Type Department Care Team (Late st Contact Info) Description 01/18/2025 9:30 AM CDT Office Visit [facility] Medical [facility] - Endocrinology - [place] #2 [place] [address] Rita Lnyne MD #[address] [address] 03/08/2025 9:45 AM CDT Office Visit [facility] - Family Medicine - [place] #2 [place] [address] Aisha Medina APRN, KASSI #2 [facility] [address] [place] [address] documented as of this encounter Visit Diagnoses Not on filedocumented in this encounter Additional Health Concerns Assessment Noted Time PHQ-9 Depression Total Score: 0 03/01/20 21 10:00 AM CDT documented as of this encounter Care Teams It Programmer Relationship Specialty Start Date End Date Aisha Medina APRN, KASSI #2 [facility] [address] [place] [address] PCP - General Advanced Practice Nurse 07/17/18 Ariel Lua DPM Consulting Physician Podiatry 12/02/16 Juanjo Mclaughlin MD [address] [address] Consulting Physician Oncology 12/01/19 Rita Lynne MD #[address] [address] Consulting Physician Endocrinology 10/17/22 Meron Gurrola RN [place] Nurse Safe Deposit Clerk 01/09/24 01/15/24 documented as of this encounter
--- OUTSIDE RECORDS SUMMARY | 2024-11-21 11:13 | XMS_ITS | Encounter Summary ---
Author Organization [facility] Address [address] [place] [address] Phone Care Team Providers Care Photoengraving Machine Operator/Tender Name Role Phone Ariel Lua Nikhil DPM Unavailable [phone] Aisha Medina APRN, CNP Primary Care Provid er Juanjo Mclaughlin MD Unavailable Rita Lynne MD Unavailable Meron Gurrola RN Unavailable Unavailable Reason for Visit * Reason Onset Date Comments Medication Refill 07/12/2021 Encounter Details Date Type Department Care Team (Late st Contact Info) Description 07/12/2021 Refill [facility] Medical Group - Family Medicine [facility] #2 [place] [address] Aisha Medina APRN, BURLAPPER #[address] [address] Medication Refill Social History Tobacco Use Types Packs/Day Years Used Date Smoking Tobacco: Never Cigarettes Smokeless Tobacco: Never Alcohol Use Standard Drinks/Week Comments Yes 0 (1 standard drink = 0.6 oz pur e alcohol) Socially PHQ-2 Answer Date Recorded Total Score - Questions 1-9 0 09/0 07/2020 Sexually Active Control Partners Comments Yes Female [...] have Coronavirus / COVID-19? No / Unsure 07/09/2021 3:54 PM MEAT SOAKER documented as of this encounter Miscellaneous Notes * Telephone Encounter - Jade Vega RN - 07/13/2021 9:39 AM CST Last Rx came from clearance cutter - do you want to order - your last Rx was from 1 year ago Per nursing clinical judgement, provider to review and approve the medication(s) order(s) if appropriate. Requested Prescriptions Pending Prescriptions Disp Refills clopidogrel (PLAVIX) 75 MG Tablet 30 Tablet 0 Sig: Take 1 Tablet by mouth daily. Plavix Protocol Passed - 07/13/2021 9:39 AM Passed - CBC on record in past 12 months WBC Date Value Ref Range Status 04/20/2021 8.22 4.00 - 12.00 10(3)/mcL Final WBC ESTERASE Date Value Ref Range Status 01/24/2021 Negative Negative Final RBC Date Value Ref Range Status 04/20/2021 3.35 (L) 4.40 - 5.80 10(6)/mcL Final HEMATOCRIT (HCT) Date Value Ref Range Status 04/20/2021 29.9 (L) 38.0 - 50.0 % Final HEMOGLOBIN (HGB) Date Value Ref Range Status 04/20/2021 10.0 (L) 13.0 - 16.5 g/dL Final MCV Date Value Ref Range Status 04/20/2021 89.3 82.0 - 96.0 fL Final MCH Date Value Ref Range Status 04/20/2021 29.9 26.0 - 32.0 pg Final MCHC Date Value Ref Range Status 04/20/2021 33.4 31.0 - 36.0 g/dL Final Passed - Visit with relevant provider in past 12 months or upcoming 90 days Recent Visits Date Type Provider Dept 03/01/21 Office Visit Aisha Medina APRN, BURLAPPER [facility] Showing recent visits within past 365 days and meeting all other requirements Future Appointments No visits were found meeting these conditions. Showing future appointments within next 90 days and meeting all other requirements SOAKER * Telephone Encounter - Bryanna Anna - 07/12/2021 11:54 AM CST Received a faxed Rx request from pharmacy. Reordered refill medication(s) requested and pended for nurse and physician/SUMA review. Refill encounter routed to nurse Bridger's pool for processing. SOAKER documented in this encounter Plan of Treatment Upcoming Encounters Date Type Department Care Team (Late st Contact Info) Description 01/18/2025 9:30 AM CDT Office Visit [facility] - Endocrinology - [place] #2 [facility] [place] [address] Rita Lynne MD #[address] [address] 03/08/2025 9:45 AM CDT Office Visit [facility] - Family Medicine - [place] #2 [place] [address] Aisha Medina APRN, BURLAPPER #2 [facility] [address] [place] [address] documented as of this encounter Visit Diagnoses Not on filedocumented in this encounter Additional Health Concerns Assessment Noted Time PHQ-9 Depression Total Score: 0 03/01/20 21 10:00 AM CDT documented as of this encounter Care Teams Photoengraving Machine Operator/Tender Relationship Specialty Start Date End Date Aisha Medina APRN, AKSSI #2 [facility] [address] [place] [address] PCP - General Advanced Practice Nurse 07/17/18 Ariel Lua DPM Consulting Physician Podiatry 12/02/16 Juanjo Mclaughlin MD [address] [place] [address] Consulting Physician Oncology 12/01/19 Rita Lynne MD #[address] [phone] Consulting Physician Endocrinology 10/17/22 Meron Gurrola, RN [place] Nurse Oracle Hyperion Consultant 01/09/24 01/15/24 documented as of this encounter
--- OUTSIDE RECORDS SUMMARY | 2024-11-21 11:13 | XMS_ITS | Encounter Summary ---
Author Organization [facility] Address [address] [place] [address] Phone Care Team Providers Care Junior Sales Representative Name Role Phone Ariel Lua Nikhil DPM Unavailable [phone] Aisha Medina APRN, SERVICE TECH Primary Care Provid er Juanjo Mclaughlin MD Unavailable Rita Lynne MD Unavailable Meron Gurrola RN Unavailable Unavailable Reason for Visit * Reason Comments Medication Refill Encounter Details Date Type Department Care Team (Late st Contact Info) Description 11/22/2023 Refill [facility] Endocrinology [facility] #2 [place] [address] Rita Lynne MD #[address] [address] Medication Refill Social History [...] encounter Miscellaneous Notes * Telephone Encounter - Rosa Wisdom RN - 11/26/2023 10:24 AM CDT Medication failed the protocol, provider to review and approve the medication order if appropriate. Requested Prescriptions Pending Prescriptions Disp Refills Comfort EZ Pen [place] 31G X 6 MM Misc [Pharmacy Med Name: COMFORT EZ PEN NEED 31G X 6 MM MISC] 400Each 3 Sig: USE 4 TIMES DAILY Diabetic Supplies Protocol Failed - 11/22/2023 2:12 AM Failed - Visit with relevant provider in past 6 months Recent Visits Date Type Provider Dept 07/07/23 Office Visit Aisha Medina APRN, CNP [facility] 07/01/23 Office Visit Aisha Medina APRN, CNP [facility] Showing recent visits within past 182 days and meeting all other requirements Future Appointments Date Type Provider Dept 12/30/23 Appointment Aisha Medina APRN, CNP [facility] 02/02/24 Appointment Rita Lynne MD [facility] Showing future appointments within next 90 days and meeting all other requirements documented in this encounter Plan of Treatment Upcoming Encounters Date Type Department Care Team (Late st Contact Info) Description 01/18/2025 9:30 AM CDT Office Visit [facility] Medical Group - Endocrinology - [place] #2 [place] [address] Rita Lynne MD #2 [facility] [address] [place] [address] 03/08/2025 9:45 AM CDT Office Visit [facility] Medical [facility] - Family Medicine - [place] #2 [place] [address] Aisha Medina APRN, CNP #2 [facility] [address] [place] [address] documented as of this encounter Visit Diagnoses Not on filedocumented in this encounter Additional Health Concerns Assessment Noted Time PHQ-9 Depression Total Score: 0 07/07/19 24 2:00 PM ASSEMBLY TECHNICIAN documented as of this encounter Care Teams Junior Sales Representative Relationship Specialty Start Date End Date Aisha Medina APRN, CNP #2 [facility] [address] [place] [address] PCP - General Advanced Practice Nurse 07/17/18 Ariel Lua DPM Consulting Physician Podiatry 12/02/16 Juanjo Mclaughlin MD [facility] [address] [address] Consulting Physician Oncology 12/01/19 Rita Lynne MD #2 [facility] [address] [place] [address] Consulting Physician Endocrinology 10/17/22 Meorn Gurrola RN [place] Nurse Channel Marketing Program Manager 01/09/24 01/15/24 documented as of this encounter
--- OUTSIDE RECORDS SUMMARY | 2024-11-21 11:13 | XMS_ITS | Encounter Summary ---
Author Organization [facility] Address [address] [place] [address] Phone Care Team Providers Care Manager Statistical Name Role Phone Ariel Lua Nikhil DPM Unavailable [phone] Aisha Medina APRN, CNP Primary Care Provid er Juanjo Mclaughlin MD Unavailable Rita Lynne MD Unavailable Meron Gurrola RN Unavailable Unavailable Reason for Visit * Reason Onset Date Comments Medication Refill 07/02/2021 Encounter Details Date Type Department Care Team (Late st Contact Info) Description 07/02/2021 Refill [facility] - Family Medicine [facility] #2 [place] [address] Aisha Medina APRN, HAIR STYLIST [address] [address] Medication Refill Social History Tobacco [...] have Coronavirus / COVID-19? No / Unsure 06/28/2021 2:18 PM LASER MACHINE OPERATOR documented as of this encounter Miscellaneous Notes * Telephone Encounter - Jade Vega RN - 07/04/2021 11:33 AM CST Per patient, he is not taking this anymore. R MACHINE OPERATOR * Telephone Encounter - Aisha Medina APRN, CNP - 07/03/2021 12:39 PM LASER MACHINE OPERATOR Please reach out to the patient and clarify if he is taking this. He is a pending transplant patient and sees multiple specialists. R MACHINE OPERATOR * Telephone Encounter - Jade Vega RN - 07/03/2021 10:45 AM CST After reviewing historical medication list, I'm not sure if patient is suppose to be on this or not. You have not ordered this in quite some time. No recent refill activity on MEDD Medication failed the protocol, provider to review and approve the medication order if appropriate. Requested Prescriptions Pending Prescriptions Disp Refills cloNIDine (CATAPRES) 0.1 MG Tablet 90 Tablet 0 Sig: Take 1 Tablet by mouth. Not Delegated - Anti-adrenergic Antihypertensives Protocol Failed - 07/03/2021 10:45 AM Failed - This refill cannot be delegated Passed - Visit with relevant provider in past 12 months or upcoming 90 days Recent Visits Date Type Provider Dept 03/01/21 Office Visit Aisha Medina APRN, CNP [facility] Showing recent visits within past 365 days and meeting all other requirements Future Appointments No visits were found meeting these conditions. Showing future appointments within next 90 days and meeting all other requirements R MACHINE OPERATOR * Telephone Encounter - Bryanna Anna - 07/02/2021 10:08 AM CST Received a faxed Rx request from pharmacy. Reordered refill medication(s) requested and pended for nurse and physician/SUMA review. Refill encounter routed to nurse Bridger's pool for processing. R MACHINE OPERATOR documented in this encounter Plan of Treatment Upcoming Encounters Date Type Department Care Team (Late st Contact Info) Description 01/18/2025 9:30 AM CDT Office Visit [facility] - Endocrinology - [place] #2 [place] [address] Rita Lynne MD #2 [facility] [address] [place] [address] 03/08/2025 9:45 AM CDT Office Visit [facility] - Family Medicine - [place] #2 [facility] [place] [address] Aisha Medina APRN, HAIR STYLIST #2 [facility] [address] [place] [address] documented as of this encounter Visit Diagnoses Not on filedocumented in this encounter Additional Health Concerns Assessment Noted Time PHQ-9 Depression Total Score: 0 03/01/20 21 10:00 AM CDT documented as of this encounter Care Teams Manager Statistical Relationship Specialty Start Date End Date Aisha Medina APRN, HAIR STYLIST #2 [facility] [address] [place] [address] PCP - General Advanced Practice Nurse 07/17/18 Ariel Lua DPM Consulting Physician Podiatry 12/02/16 Juanjo Mclaughlin MD [id number] [address] Consulting Physician Oncology 12/01/19 Rita Lynne MD #[address] [address] Consulting Physician Endocrinology 10/17/22 Meron Gurrola RN [place] Nurse Credit Negotiator 01/09/24 01/15/24 documented as of this encounter
--- OUTSIDE RECORDS SUMMARY | 2024-11-21 11:13 | XMS_ITS | Encounter Summary ---
Author Organization [facility] Address [address] [place] [address] Phone Care Team Providers Care Yard Brakeman Name Role Phone Ariel Lua Nikhil DPM Unavailable [phone] Aisha Medina APRN, KASSI Primary Care Provid er Juanjo Mclaughlin MD Unavailable Rita Lynne MD Unavailable Meron Gurrola RN Unavailable Unavailable Reason for Visit * Reason Comments Medication Refill Encounter Details Date Type Department Care Team (Late st Contact Info) Description 11/17/2023 Refill [facility] - Family Medicine [facility] #2 [place] [address] Aisha Medina APRN, KASSI #[address] [address] Medication Refill Social History Tobacco [...] Telephone Encounter - Jade Vega RN - 11/17/2023 5:16 PM CDT Medication failed the protocol, provider to review and approve the medication order if appropriate. Requested Prescriptions Pending Prescriptions Disp Refills sildenafil citrate (VIAGRA) 100 MG Tablet [Pharmacy Med Name: Sildenafil Citrate 100 MG Oral Tablet] 30 Tablet 0 Sig: TAKE 1 TABLET BY MOUTH NEEDED FOR ERECTILE DYSFUNCTION Erectile Dysfunction Medication Protocol Failed - 11/17/2023 5:00 PM Failed - Erectile dysfunction on problem list Passed - Visit with relevant provider in past 12 months or upcoming 90 days Recent Visits Date Type Provider Dept 07/07/23 Office Visit Aisha Medina APRN, CNP [facility] 07/01/23 Office Visit Aisha Medina APRN, CNP [facility] Showing recent visits within past 365 days and meeting all other requirements Future Appointments Date Type Provider Dept 12/30/23 Appointment Aisha Medina APRN, CNP [facility] Showing future appointments within next 90 days and meeting all other requirements Passed - Absence of nitrates on med list documented in this encounter Plan of Treatment Upcoming Encounters Date Type Department Care Team (Late st Contact Info) Description 01/18/2025 9:30 AM CDT Office Visit [facility] - Endocrinology - [place] #2 [place] [address] Rita Lynne MD #[address] [address] 03/08/2025 9:45 AM CDT Office Visit [facility] - Family Medicine - [place] #2 [place] [address] Aisha Medina APRN, CNP #[address] [address] documented as of this encounter Visit Diagnoses Not on filedocumented in this encounter Additional Health Concerns Assessment Noted Time PHQ-9 Depression Total Score: 0 07/07/19 24 2:00 PM SENIOR OFFICER documented as of this encounter Care Teams Yard Brakeman Relationship Specialty Start Date End Date Aisha Medina APRN, CNP #2 [facility] [address] [place] [address] PCP - General Advanced Practice Nurse 07/17/18 Ariel Lua DPM Consulting Physician Podiatry 12/02/16 Juanjo Mclaughlin MD [address] [place] [address] Consulting Physician Oncology 12/01/19 Rita Lynne MD #2 [facility] [address] [place] [address] Consulting Physician Endocrinology 10/17/22 Meron Gurrola RN [place] Nurse Loin Puller 01/09/24 01/15/24 documented as of this encounter
--- OUTSIDE RECORDS SUMMARY | 2024-11-21 11:13 | XMS_ITS | Encounter Summary ---
Author Organization [facility] Address [address] [place] [address] Phone Care Team Providers Care Slitting And Shipping Supervisor Name Role Phone Ariel Lua Nikhil DPM Unavailable [phone] Aisha Medina APRN, KASSI Primary Care Provid er Jaunjo Mclaughlin MD Unavailable Rita Lynne MD Unavailable Meron Gurrola RN Unavailable Unavailable Reason for Visit * Reason Comments Medication Refill Encounter Details Date Type Department Care Team (Late st Contact Info) Description 09/02/2021 Refill [facility] - Family Medicine [facility] #2 [place] [address] Aisha Medina APRN, KASSI #[address] [address] Medication Refill Social History Tobacco [...] Telephone Encounter - Jade Vega RN - 09/03/2021 12:56 PM CST Medication failed the protocol, provider to review and approve the medication order if appropriate. Requested Prescriptions Pending Prescriptions Disp Refills amLODIPine (NORVASC) 10 MG Tablet [Pharmacy Med Name: AMLODIPINE BESYLATE 10MG TABS] 90 Tablet 1 Sig: TAKE ONE TABLET BY MOUTH EVERY DAY Calcium-Channel Blockers Protocol Passed - 09/02/2021 2:04 AM Passed - BP on record in the past year Clinician-entered: BP Readings from Last 3 Encounters: 05/17/21 112/82 03/01/21 132/84 01/24/21 (!) 164/99 Patient-entered: No data recorded Passed - Visit with relevant provider in past 12 months or upcoming 90 days Recent Visits Date Type Provider Dept 03/01/21 Office Visit Aisha Medina APRN, [facility] Showing recent visits within past 365 days and meeting all other requirements Future Appointments No visits were found meeting these conditions. Showing future appointments within next 90 days and meeting all other requirements gabapentin (NEURONTIN) 100 MG Capsule [Pharmacy Med Name: GABAPENTIN 100MG CAPS] 90 Capsule 1 Sig: TAKE ONE CAPSULE BY MOUTH EVERY EVENING Not Delegated - Anticonvulsants Excluding Benzodiazepines Protocol Failed - 09/02/2021 2:04 AM Failed - This refill cannot be delegated Passed - Visit with relevant provider in past 12 months or upcoming 90 days Recent Visits Date Type Provider Dept 03/01/21 Office Visit Aisha Medina APRN, [facility] Showing recent visits within past 365 days and meeting all other requirements Future Appointments No visits were found meeting these conditions. Showing future appointments within next 90 days and meeting all other requirements CTION CONTROL PREVENTIONIST documented in this encounter Plan of Treatment Upcoming Encounters Date Type Department Care Team (Late st Contact Info) Description 01/18/2025 9:30 AM CDT [facility] - [facility] - [place] #[address] [place] [address] Rita Lynne MD #[address] [address] 03/08/2025 9:45 AM CDT [facility] - Family Medicine [facility] #2 [place] [address] Aisha Medina APRN, ICE SKATING INSTRUCTOR #[address] [address] documented as of this encounter Visit Diagnoses Diagnosis Hypertension, unspecified type Burning sensation of skin documented in this encounter Additional Health Concerns Assessment Noted Time PHQ-9 Depression Total Score: 0 03/01/20 21 10:00 AM CDT documented as of this encounter Care Teams Slitting And Shipping Supervisor Relationship Specialty Start Date End Date Aisha Medina APRN, KASSI #[address] [address] PCP - General Advanced Practice Nurse 07/17/18 Ariel Lua DPM Consulting Physician Podiatry 12/02/16 Juanjo Mclaughlin MD [address] [place] [address] Consulting Physician Oncology 12/01/19 Rita Lynne MD #[address] [address] Consulting Physician Endocrinology 10/17/22 Meron Gurrola, RN [place] Nurse Sealing Machine Operator 01/09/24 01/15/24 documented as of this encounter
[2024-11-21 11:18] VITALS: BP 152/86; PULSE 81; RESP 16; TEMP 36.8; O2SAT 100
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
== END 2024-11-21 12:59 | disposition home or self-care (01) ==
PROVIDERS: PCP Nurse Practitioner
DX: S62.346A Nondisplaced fracture of base of fifth metacarpal bone, right hand, initial encounter for closed fracture (principal); Y04.0XXA Assault by unarmed brawl or fight, initial encounter; E11.9 Type 2 diabetes mellitus without complications; Z96.41 Presence of insulin pump (external) (internal)
CPT/HCPCS: 29125; 73110; 73130; 99214; A4565; G0463

== ENCOUNTER 2025-05-25 13:40 | Emergency (ER) | payer MEDICARE, SELFPAY ==
--- OUTSIDE RECORDS SUMMARY | 2025-05-25 13:45 | XMS_ITS | Encounter Summary ---
Author Organization [facility] Address [address] [place] [address] Care Team Providers Care Board Of Directors Name Role Phone Rita Lynne MD Unavailable Martha Worrell MD Unavailable Aisha Medina APRN-PHARMACOMETRICIAN Primary Care Provide r Encounter Details Date Type Department Care Team (Late st Contact Info) Description 03/16/2025 Telephone [facility] - Vascular Surgery [address] [place] [address], [place] [address] Dolores Edwards MD [address] [place] [address] DIV [place] [address] Social History Tobacco Use Types Packs/Day Years Used Date Smoking Tobacco: Never Smokeless Tobacco: Never Alcohol Use Standard Drinks/Week Comments Not Currently 0 (1 standard drink = 0.6 oz pur e alcohol) AUDIT-C Answer Date Recorded Q1: How often do you have a drink containing alc ohol? Monthly or less 03/17/2025 Q2: How many drinks containi ng alcohol do you have on a typical day when you are drinking? 1 or 2 03/17/2025 Q3: How often do you have si x or more drinks on one occasion? Never 03/17/2025 Overall Financial Resource Strain (CARDIA) Answe r Date Recorded How hard is it for you to pa y for the very basics like food, housing, medical care, and heating? Not hard at all 03/17/2025 [facility] [place] of Occupat ional Health - Occupational Stress Questionnaire Answer Date Recorded Do you feel stress - tense, restless, nervous, or anxious, or unable to sleep at night because your mind is troubled all the time - these days? Not at all 03/17/2025 Hunger Vital Sign Answer Date Recorded Within the past 12 months, y ou worried that your food would run out before you got the money to buy more. Never true 03/17/20 25 Within the past 12 months, t he food you bought just didn't last and you didn't have money to get more. Never true 03/17/2025 PRAPARE - Transportation Answer Date Re corded In the past 12 months, has l ack of transportation kept you from medical appointments or from getting medications? No 02/28 In the past 12 months, has l ack of transportation kept you from meetings, work, or from getting things needed for daily living? No 03/17/2025 Housing Stability Vital Sign Answer Robe e Recorded In the last 12 months, was t here a time when you were not able to pay the mortgage or rent on time? No 12/25/2022 In the last 12 months, how many places have you lived? 1 12/25/2022 In the last 12 months, was t here a time when you did not have a steady place to sleep or slept in a chcf (including now)? No 12/25/2022 Housing Stability Vital Sign Answer Robe e Recorded In the last 12 months, was t here a time when you were not able to pay the mortgage or rent on time? No 03/17/2025 In the past 12 months, how m any times have you moved where you were living? 0 03/17/2025 At any time in the past 12 m [facility], were you homeless or living in a chcf (including now)? No 03/17/2025 Sex and Gender Information Value Date Recorded Sex Assigned at Not on file Legal Sex Male 12:43 PM CDT Gender Identity Not on file Sexual Orientation Not on file documented as of this encounter Functional Status * Functional and Cognitive Status Question Answer Date of Assessment Author Is person deaf or have oliverio us hearing difficulty? No 03/18/2025 2:19 PM CDT Shelbie Vigil RN Is person blind or have seri ous difficulty seeing? No 03/18/2025 2:19 PM SILVANAT Shelbie Vigil RN Does person have serious difficulty walking/climbing stairs? No 03/18/2025 2:19 PM SILVANAT Shelbie Vigil RN Does person have difficulty dressing/bathing? No 03/18/2025 2:19 PM SILVANAT Shelbie Vigil RN Does person have difficulty doing errands alone? No 03/18/2025 2:19 PM SILVANAT Shelbie Vigil RN Does person have difficulty concentrating/remembering/making decisions? No 03/18/2025 2:19 PM SILVANAT Shelbie Vigil RN * Question Answer Date of Assessment Author Q1: How often do you have a drink containing alcohol? Monthly or less 03/17/2025 9:05 PM SILVANAT Jordin Mcfadden RN Q2: How many drinks containing alcohol do you have on a typical day when you are drinking? 1 or 2 03/17/2025 9:05 PM Patti Merida R N Q3: How often do you have six or more drinks on one occasion? Never 03/17/2025 9:05 PM Patti Merida R N * AUDIT-C Score Answer Date of Assessment Author 1 03/17/2025 9:05 PM CDDre Blair RN * Is person deaf or have serious hearing difficulty? Answer Date of Assessment Author No 08/18/2024 3:00 PM Abena Sharp RN * Is person blind or have serious difficulty seeing? Answer Date of Assessment Author No 08/18/2024 3:00 PM Abena Sharp RN * Does person have serious difficulty walking/climbing stairs? Answer Date of Assessment Author No 08/18/2024 3:00 PM Abena Sharp RN * Does person have difficulty dressing/bathing? Answer Date of Assessment Author No 08/18/2024 3:00 PM Abena Sharp RN * Does person have difficulty doing errands alone? Answer Date of Assessment Author No 08/18/2024 3:00 PM Abena Sharp, RN documented as of this encounter Mental Status * Does person have difficulty concentrating/remembering/making decisions? Answer Entry Date Author No 08/18/2024 3:00 PM Abena Sharp RN documented in this encounter Miscellaneous Notes * Telephone Encounter - Aileen Arias - 03/16/2025 1:34 PM CDT Patient called to get time he needs to arrive to the hospital for pre-admit for surgery scheduled for Friday. Spoke with Negin at ([phone]) who advised that orders are needed in order to get patient scheduled. ([id number]) Was given the number to a Safia Whitlock who was able to submit the order. Followed up with Negin who confirmed she did receive the order and would be reaching out to Dr. Edwards for further information. Advised patient that someone will be reaching out to him tomorrow to lethim know what time to arrive to the hospital.-KJ documented in this encounter Plan of Treatment Upcoming Encounters Date Type Department Care Team (Late st Contact Info) Description 05/31/2025 3:00 PM BAR WAITER/WAITRESS Office Visit [facility] - Endocrinology [address] [place] [address] Michael Arceo MD [address] DIV [place] [address] 06/02/2025 1:00 PM BAR WAITER/WAITRESS Appointment [facility] [address] [place] [phone] Dolores Edwards MD [address] [place] [address] 06/02/2025 2:00 PM BAR WAITER/WAITRESS Appointment [facility] [address] [place] [phone] Dolores Edwards MD [address] [place] [address] 06/08/2025 10:45 AM BAR WAITER/WAITRESS Office Visit [facility] - Vascular Surgery [address] [place] [address], [place] [address] Dolores Edwards MD [address] [place] [address] [address] [place] [address] 07/13/2025 9:30 AM BAR WAITER/WAITRESS Office Visit [facility] - Nephrology [address] [place] [address], [place] [address] documented as of this encounter Goals Goal Patient Goal Type Associated Problems Recent Progress Patient-Stated? Author Blood Pressure < 140/90 Blood Pressure 153/81(2024 11:04 AM CDT) Tammy Santiago RN documented as of this encounter Visit Diagnoses Not on filedocumented in this encounter Care Teams Board Of Directors Relationship Specialty Start Date End Date Aisha Medina APRN-PHARMACOMETRICIAN PCP - General Nurse Practitioner 03/12/19 Rita Lynne MD 03/02/19 Martha Worrell MD Nephrology 03/12/19 documented as of this encounter
--- OUTSIDE RECORDS SUMMARY | 2025-05-25 13:45 | XMS_ITS | Encounter Summary ---
Author Organization [facility] Address [address] [place] [address] Phone Care Team Providers Care Glass Inspector Name Role Phone Ariel Lua Nikhil DPM Unavailable [phone] Aisha Medina APRN, ESCROW AGENT Primary Care Prov ider Juanjo Mclaughlin MD Unavailable Rita Lynne MD Unavailable Meron Gurrola RN Unavailable Unavailable Meron Gurrola RN Unavailable Unavailable Reason for Visit * Reason Comments Medication Refill Encounter Details Date Type Department Care Team (Late st Contact Info) Description 07/16/2023 Refill [facility] Medical Group - Family Medicine [facility] [address] [place] [address] Aisha Medina APRN, ESCROW AGENT [address] [address] Medication Refill Social History Tobacco [...] 07/01/23 Office Visit Aisha Medina APRN, CNP [facility] Showing recent visits within past 365 days and meeting all other requirements Future Appointments No visits were found meeting these conditions. 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, not stated as uncontrolled documented in this encounter Additional Health Concerns Assessment Noted Time PHQ-9 Depression Total Score: 0 07/07/19 24 2:00 PM PRESS ASSISTANT documented as of this encounter Care Teams Glass Inspector Relationship Specialty Start Date End Date Aisha Medina APRN, CNP [address] [address] PCP - General Advanced Practice Nurse 07/17/18 Ariel Lua DPM Consulting Physician Podiatry 12/02/16 Juanjo Mclaughlin MD [address] [place] [id number] Consulting Physician Oncology 12/01/19 Rita Lynne MD [address] [address] Consulting Physician Endocrinology 10/17/22 Meron Gurrola RN [place] Nurse Weight Training Instructor 01/09/24 01/15/24 Meron Gurrola RN [place] Nurse Weight Training Instructor 11/26/24 12/08/24 documented as of this encounter
--- OUTSIDE RECORDS SUMMARY | 2025-05-25 13:45 | XMS_ITS | Encounter Summary ---
Author Organization [facility] Address [address] [place] [address] Phone Care Team Providers Care Slice Cutting Machine Operator Name Role Phone Ariel Lua Nikhil DPM Unavailable [phone] Aisha Medina APRN, BPM SOLUTION ARCHITECT Primary Care Prov ider Juanjo Mclaughlin MD Unavailable Rita Lynne MD Unavailable Meron Gurrola RN Unavailable Unavailable Meron Gurrola RN Unavailable Unavailable Reason for Visit * Reason Onset Date Comments Medication Refill 07/02/2021 Encounter Details Date Type Department Care Team (Late st Contact Info) Description 07/02/2021 Refill [facility] Medical [facility] - Family Medicine [facility] [address] [place] [address] Aisha Medina APRN, BPM SOLUTION ARCHITECT #[address] [phone] Medication Refill Social History Tobacco Use Types [...] COVID-19? No / Unsure 06/28/2021 2:18 PM POLITICAL RESEARCH SCIENTIST documented as of this encounter Miscellaneous Notes * Telephone Encounter - Jade Vega RN - 07/04/2021 11:33 AM CST Per patient, he is not taking this anymore. TICAL RESEARCH SCIENTIST * Telephone Encounter - Aisha Medina APRN, CNP - 07/03/2021 12:39 PM POLITICAL RESEARCH SCIENTIST Please reach out to the patient and clarify if he is taking this. He is a pending transplant patient and sees multiple specialists. TICAL RESEARCH SCIENTIST * Telephone Encounter - Jaed Vega RN - 07/03/2021 10:45 AM CST [...] 03/01/21 Office Visit Aisha Medina APRN, CNP [facility] Showing recent visits within past 365 days and meeting all other requirements Future Appointments No visits were found meeting these conditions. Showing future appointments within next 90 days and meeting all other requirements TICAL RESEARCH SCIENTIST * Telephone Encounter - Bryanna Anna - 07/02/2021 10:08 AM CST Received a faxed Rx request from pharmacy. Reordered refill medication(s) requested and pended for nurse and physician/SUMA review. Refill encounter routed to nurse Bridger's pool for processing. TICAL RESEARCH SCIENTIST documented in this encounter Plan of Treatment Upcoming Encounters Date Type Department Care Team (Late st Contact Info) Description 06/02/2025 9:45 AM POLITICAL RESEARCH SCIENTIST [facility] - [place] [address] [place] [address] Aisha Medina APRN, BPM SOLUTION ARCHITECT #[address] [phone] documented as of this encounter Visit Diagnoses Not on filedocumented in this encounter Additional Health Concerns Assessment Noted Time PHQ-9 Depression Total Score: 0 03/01/20 21 10:00 AM CDT documented as of this encounter Care Teams Slice Cutting Machine Operator Relationship Specialty Start Date End Date Aisha Medina APRN, BPM SOLUTION ARCHITECT #[address] [phone] PCP - General Advanced Practice Nurse 07/17/18 Ariel Lua DPM Consulting Physician Podiatry 12/02/16 Juanjo Mclaughlin MD [address] [place] [id number] Consulting Physician Oncology 12/01/19 Rita Lynne MD [address] [address] Consulting Physician Endocrinology 10/17/22 Meron Gurrola RN [place] Nurse Roller Staker 01/09/24 01/15/24 Meron Gurrola RN [place] Nurse Roller Staker 11/26/24 12/08/24 documented as of this encounter
--- OUTSIDE RECORDS SUMMARY | 2025-05-25 13:45 | XMS_ITS ---
Author Organization [facility] Address [address] [place] [address] Phone Care Team Providers Care Inventory Technician Name Role Phone ChanellAriel kam Nikhil DPM Unavailable [phone] Aisha Medina APRN, ASSEMBLY LINE INSPECTOR Primary Care Prov ider Juanjo Mclaughlin MD [...]
--- OUTSIDE RECORDS SUMMARY | 2025-05-25 13:45 | XMS_ITS | Encounter Summary ---
Author Organization [facility] Address [address] [place] [address] Phone Care Team Providers Care Battery Starter Name Role Phone Ariel Lua Nikhil DPM Unavailable [phone] Aisha Medina APRN, MAGNETIC DOCTOR Primary Care Prov ider Juanjo Mclaughlin MD Unavailable Rita Lynne MD Unavailable Meron Gurrola RN Unavailable Unavailable Meron Gurrola RN Unavailable Unavailable Reason for Visit * Reason Comments Medication Refill Encounter Details Date Type Department Care Team (Late st Contact Info) Description 07/11/2020 Refill [facility] Medical Group - Family Medicine [facility] [address] [place] [address] Aisha Medina APRN, MAGNETIC DOCTOR [address] [address] Medication Refill Social History Tobacco [...] Telephone Encounter - Jade Vega RN - 07/12/2020 9:07 AM CST Medication [...] with stage 4 chronic kidney disease (HCC) [facility] 8 months ago 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) [facility]ata APN, MAGNETIC DOCTOR 1 year ago Chest congestion [facility] PAC 1 year ago 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) [facility] Plata APN, MAGNETIC DOCTOR 1 year ago Penile lesion [facility] Gonzales PAC Upcoming Appointments PAPERBOARD MACHINE OPERATOR - Recent and Past Visits Recent Visits Date Type Provider Dept 05/12/20 Office Visit Aisha Medina APN, CNP [facility] 11/01/19 Telemedicine Aisha Medina APN, CNP [facility] 07/01/19 Office Visit Cherelle Vargas PAC [facility] 06/18/19 Office Visit Aisha Medina APN, KASSI [facility] Showing recent visits within past 460 days with a meds authorizing provider and meeting all other requirements Future Appointments No visits were found meeting these conditions. Showing future appointments within next 90 days with a meds authorizing provider and meeting all other requirements Passed - Last BP in normal range BP Readings from Last 1 Encounters: 05/12/20 138/88 ER COVERING MACHINE OPERATOR documented in this encounter Plan of Treatment Upcoming Encounters Date Type Department Care Team (Late st Contact Info) Description 06/02/2025 9:45 AM RUBBER COVERING MACHINE OPERATOR Office Visit [facility] Medical Group - Family Medicine [facility] [address] [place] [address] Aisha Medina APRN, MAGNETIC DOCTOR [address]2 [facility] [address] [place] [address] documented as of this encounter Visit Diagnoses Not on filedocumented in this encounter Additional Health Concerns Assessment Noted Time PHQ-9 Depression Total Score: 0 07/01/19 11:36 AM RUBBER COVERING MACHINE OPERATOR documented as of this encounter Care Teams Battery Starter Relationship Specialty Start Date End Date Aisha Medina APRN, MAGNETIC DOCTOR [address]2 [facility] [address] [place] [address] PCP - General Advanced Practice Nurse 07/17/18 Ariel Lua DPM Consulting Physician Podiatry 12/02/16 Juanjo Mclaughlin MD [address] [place] [address] Consulting Physician Oncology 12/01/19 Rita Lynne MD [address]2 [facility] [address] [place] [address] Consulting Physician Endocrinology 10/17/22 Meron Gurrola, RN [place] Nurse Nuclear Weapons Specialist 01/09/24 01/15/24 Meron Gurrola, RN [place] Nurse Nuclear Weapons Specialist 11/26/24 12/08/24 documented as of this encounter
--- OUTSIDE RECORDS SUMMARY | 2025-05-25 13:45 | XMS_ITS | Encounter Summary ---
Author Organization [facility] Address [address] [place] [address] Care Team Providers Care Insurance Claims Processor Name Role Phone Rita Lynne MD Unavailable Martha Worrell MD Unavailable [phone] Aisha Medina SHEARING MACHINE TENDER-FISHING VESSEL DECKHAND Primary Care Provide r Encounter Details Date Type Department Care Team (Late st Contact Info) Description 05/05/2025 Results Follow-Up [facility] [address] [place] [phone] Uma Bennett RN Social History Tobacco Use Types Packs/Day Years Used Date Smoking Tobacco: Never Smokeless Tobacco: Never Alcohol Use Standard Drinks/Week Comments Not Currently 0 (1 standard drink = 0.6 oz pur e alcohol) AUDIT-C Answer Date Recorded Q1: How often do you have a drink containing alc ohol? Monthly or less 03/23/2025 Q2: How many drinks containi ng alcohol do you have on a typical day when you are drinking? 1 or 2 03/23/2025 Q3: How often do you have si x or more drinks on one occasion? Never 03/23/2025 Overall Financial Resource Strain (CARDIA) Answe r Date Recorded How hard is it for you to pa y for the very basics like food, housing, medical care, and heating? Not hard at all 03/23/2025 [facility] [place] of Occupat ional Health - Occupational Stress Questionnaire Answer Date Recorded Do you feel stress - tense, restless, nervous, or anxious, or unable to sleep at night because your mind is troubled all the time - these days? Not at all 03/23/2025 Hunger Vital Sign Answer Date Recorded Within the past 12 months, y ou worried that your food would run out before you got the money to buy more. Never true 03/23/20 25 Within the past 12 months, t he food you bought just didn't last and you didn't have money to get more. Never true 03/23/2025 PRAPARE - Transportation Answer Date Re corded In the past 12 months, has l ack of transportation kept you from medical appointments or from getting medications? No 03/01 In the past 12 months, has l ack of transportation kept you from meetings, work, or from getting things needed for daily living? No 03/23/2025 Housing Stability Vital Sign Answer Robe e [...] place to sleep or slept in a care home (including now)? No 12/25/2022 Housing Stability Vital Sign Answer Robe e Recorded In the last 12 months, was t here a time when you were not able to pay the mortgage or rent on time? No 03/23/2025 In the past 12 months, how m any times have you moved where you were living? 0 03/23/2025 At any time in the past 12 m [facility], were you homeless or living in a care home (including now)? No 03/23/2025 Sex and Gender Information Value Date Recorded Sex Assigned at Not on file Legal Sex Male 12:43 PM CDT Gender Identity Not on file Sexual Orientation Not on file documented as of this encounter Functional Status * Is person deaf or have serious hearing difficulty? Answer Date of Assessment Author No 03/23/2025 10:13 PM CDT Caitlin Santacruz RN * Is person blind or have serious difficulty seeing? Answer Date of Assessment Author No 03/23/2025 10:13 PM CDT Caitlin Santacruz RN * Does person have serious difficulty walking/climbing stairs? Answer Date of Assessment Author No 03/23/2025 10:13 PM Caitlin Hicks RN * Does person have difficulty dressing/bathing? Answer Date of Assessment Author No 03/23/2025 10:13 PM Caitlin Hicks RN * Does person have difficulty doing errands alone? Answer Date of Assessment Author No 03/23/2025 10:13 PM Caitlin Hicks RN documented as of this encounter Mental Status * Does person have difficulty concentrating/remembering/making decisions? Answer Entry Date Author No 03/23/2025 10:13 PM Caitlin Hicks RN documented in this encounter Plan of Treatment Upcoming Encounters Date Type Department Care Team (Late st Contact Info) Description 05/31/2025 3:00 PM ORTHO NURSE Office Visit [facility] - Endocrinology [facility] [place] [address] [place] [address] [place] [address] [address] [place] [address] 06/02/2025 1:00 PM ORTHO NURSE Appointment [facility] [place] [address] Dolores Edwards MD [address] [facility] 2L [place] [address] 06/02/2025 2:00 PM ORTHO NURSE Appointment [facility] [address] [place] [address] Dolores Edwards MD [facility] 2L [place] [phone] 06/08/2025 10:45 AM ORTHO NURSE Office Visit [facility] - Vascular Surgery [address] [place] [address], [place] [address] Dolores Edwards MD [address] [facility] 2L [place] [address] 07/13/2025 9:30 AM ORTHO NURSE Office Visit [facility] - Nephrology [address] [facility], [place] [address] documented as of this encounter Goals Goal Patient Goal Type Associated Problems Recent Progress Patient-Stated? Author Blood Pressure < 140/90 Blood Pressure 153/81(2024 11:04 AM CDT) Tammy Santiago RN documented as of this encounter Visit Diagnoses Not on filedocumented in this encounter Care Teams Insurance Claims Processor Relationship Specialty Start Date End Date Aisha Medina APRN-FISHING VESSEL DECKHAND PCP - General Nurse Practitioner 03/12/19 Rita Lynne MD 03/02/19 Martha Worrell MD Nephrology 03/12/19 documented as of this encounter
--- OUTSIDE RECORDS SUMMARY | 2025-05-25 13:45 | XMS_ITS ---
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 Procedures Procedure Date / Time Performed Performing Clinician Rocío ce Details PD Catheter 2022-03-28 05:00:00 Access Site Lower Quadrant (Righ t) Access Use Start Date 2022-04-16 05:00:0 0 AV [id number] 06:00:00 Access Site Upper Arm (Left) Access Use Start Date 2022-01-11 05:00:0 0 DIALYSIS TREATMENT INFORMATION Conventional Hemodialysis Date Type Treatment Start Date Treatment End Date Pre-Treatment Vitals Post-Treatment Vitals Weight Gain BFR DFR Actual UF Dialysis Access June 11, 2024 [facility] June 10, 2024 [facility] June 09, 2024 [facility] June 08, 2024 [facility] BP Sitting (Pre-Dialysis) 151/88 mmHg Sitting Heart Rate Pre-Dialysis 80 BPM Temperature Pre-Dialysis 98.7 degF Weight Pre-Dialysis 88.1 kg June 08, 2024 [facility] June 07, 2024 [facility] June 06, 2024 [facility] June 05, 2024 [facility]CPD June 04, 2024 [facility]CPD June 03, 2024 [facility]CPD June 02, 2024 [facility]CPD June 01, 2024 CCPD May 31, 2024 CCPD May 30, 2024 CCPD May 29, 2024 CCPD May 28, 2024 CCPD May 27, 2024 [facility]CPD May 26, 2024 [facility]CPD May 25, 2024 [facility]CPD May 24, 2024 [facility] May 22, 2024 [facility]CPD May 21, 2024 [facility]CPD May 20, 2024 [facility] BP Sitting (Pre-Dialysis) 178/98 mmHg Sitting Heart Rate Pre-Dialysis 84 BPM Temperature Pre-Dialysis 98.6 degF Weight Pre-Dialysis 88.5 kg May 20, 2024 [facility]D May 19, 2024 [facility] May 18, 2024 [facility] May 17, 2024 [facility]D May 16, 2024 [facility]CPD May 15, 2024 [facility]CPD May 14, 2024 [facility]CPD May 13, 2024 [facility]CPD May 12, 2024 [facility]CPD May 11, 2024 [facility] BP Sitting (Pre-Dialysis) 170/80 mmHg Sitting Heart Rate Pre-Dialysis 67 BPM Temperature Pre-Dialysis 98.5 degF Weight Pre-Dialysis 90.1 kg May 11, 2024 [facility]CPD May 10, 2024 [facility]CPD May 09, 2024 [facility]CPD May 08, 2024 CCPD May 07, 2024 [facility]CPD May 06, 2024 CCPD May 05, 2024 CCPD May 04, 2024 CCPD May 03, 2024 CCPD May 02, 2024 CCPD May 01, 2024 [facility]CPD April 30, 2024 [facility] April 29, 2024 [facility] April 28, 2024 [facility]CPD April 27, 2024 [facility] April 26, 2024 [facility] BP Sitting (Pre-Dialysis) 142/76 mmHg Sitting Heart Rate Pre-Dialysis 65 BPM Temperature Pre-Dialysis 98.7 degF Weight Pre-Dialysis 89.7 kg April 26, 2024 [facility]CP[facility] April 25, 2024 [facility]CPD April 24, 2024 [facility] April 23, 2024 [facility]CPD April 22, 2024 [facility]CPD April 21, 2024 [facility]CPD April 20, 2024 [facility]D April 19, 2024 [facility]CPD April 18, 2024 CCPD April 17, 2024 CCPD April 16, 2024 CCPD April 15, 2024 CCPD April 14, 2024 CCPD 2024 CCPD April 12, 2024 CCPD April 11, 2024 CCPD April 10, 2024 CCPD April 09, 2024 CCPD April 08, 2024 CCPD April 07, 2024 CCPD April 06, 2024 CCPD April 05, 2024 CCPD April 04, 2024 CCPD April 03, 2024 CCPD April 02, 2024 CCPD April 01, 2024 CCPD March 31, 2024 CCPD March 30, 2024 CCPD March 29, 2024 CCPD March 28, 2024 CCPD March 27, 2024 CCPD March 26, 2024 CCPD March 25, 2024 CCPD March 24, 2024 CCPD March 23, 2024 CCPD March 22, 2024 CCPD March 21, 2024 CCPD March 20, 2024 CCPD March 19, 2024 CCPD March 18, 2024 CCPD March 17, 2024 CCPD March 16, 2024 CCPD March 15, 2024 CCPD March 14, 2024 CCPD March 13, 2024 CCPD March 12, 2024 CCPD March 11, 2024 CCPD March 10, 2024 CCPD March 09, 2024 [facility]CPD March 08, 2024 [facility]CPD March 07, 2024 CCPD March 06, 2024 [facility]CPD March 05, 2024 [facility] BP Sitting (Pre-Dialysis) 156/81 mmH g Sitting Heart Rate Pre-Dialysis 80 BPM Temperature Pre-Dialysis 98.2 degF Weight Pre-Dialysis 91.6 kg March 05, 2024 [facility] March 04, 2024 [facility] March 03, 2024 [facility] March 02, 2024 [facility]CPD March 01, 2024 [facility] February 29, 2024 [facility] February 28, 2024 [facility]D February 27, 2024 [facility] BP Sitting (Pre-Dialysis) 119/71 mmHg Sitting Heart Rate Pre-Dialysis 66 BPM Temperature Pre-Dialysis 98.8 degF Weight Pre-Dialysis 90.7 kg February 27, 2024 [facility] February 26, 2024 [facility] February 25, 2024 [facility]D February 24, 2024 [facility]CPD February 23, 2024 [facility]CPD February 22, 2024 [facility]D February 21, 2024 [facility]D February 20, 2024 [facility]CPD February 18, 2024 CCPD February 17, 2024 CCPD February 16, 2024 [facility]CPD February 15, 2024 [facility]CPD February 14, 2024 [facility]CPD February 13, 2024 [facility]CPD February 12, 2024 [facility]CPD BP Sitting (Pre-Dialysis) 172/90 mmHg Sitting Heart Rate Pre-Dialysis 74 BPM Temperature Pre-Dialysis 98.3 degF Weight Pre-Dialysis 87.1 kg February 12, 2024 [facility]CP[facility] February 11, 2024 [facility]D February 10, 2024 [facility]D February 09, 2024 [facility]CPD February 08, 2024 [facility]CPD February 07, 2024 [facility]CPD February 06, 2024 [facility]CPD February 05, 2024 [facility]CPD February 04, 2024 CCPD February 03, 2024 [facility]CPD February 02, 2024 [facility]D February 01, 2024 [facility]CPD January 31, 2024 [facility]CPD January 30, 2024 [facility]CPD January 29, 2024 [facility]CPD January 28, 2024 CCPD January 27, 2024 [facility]CPD January 26, 2024 [facility]CPD January 25, 2024 CCPD January 24, 2024 CCPD January 23, 2024 CCPD January 22, 2024 CCPD January 21, 2024 CCPD January 20, 2024 CCPD January 19, 2024 CCPD January 18, 2024 CCPD January 17, 2024 CCPD January 16, 2024 CCPD January 15, 2024 [facility]CPD BP Sitting (Pre-Dialysis) 148/88 mmHg Sitting Heart Rate Pre-Dialysis 68 BPM Temperature Pre-Dialysis 98.2 degF Weight Pre-Dialysis 90.7 kg January 15, 2024 [facility]CPD January 14, 2024 [facility]CPD January 13, 2024 [facility]CPD January 12, 2024 [facility]D BP Sitting (Pre-Dialysis) 170/93 mmHg BP Standing (Pre-Dialysis) 171/94 mmHg Sitting Heart Rate Pre-Dialysis 62 BPM Standing Heart Rate Pre-Dialysis 65 BPM Temperature Pre-Dialysis 98.3 degF Weight Pre-Dialysis 90.7 kg January 12, 2024 CCPD January 11, 2024 [facility]CPD January 10, 2024 CCPD January 09, 2024 CCPD January 08, 2024 CCPD January 07, 2024 CCPD January 06, 2024 CCPD January 05, 2024 CCPD January 04, 2024 CCPD January 03, 2024 CCPD January 02, 2024 CCPD January 01, 2024 CCPD December 31, 2023 CCPD December 30, 2023 CCPD December 29, 2023 CCPD December 28, 2023 CCPD December 27, 2023 CCPD December 26, 2023 CCPD December 25, 2023 CCPD December 24, 2023 CCPD December 23, 2023 CCPD December 22, 2023 CCPD December 21, 2023 CCPD December 20, 2023 CCPD December 19, 2023 CCPD December 18, 2023 [facility]CPD BP Sitting (Pre-Dialysis) 141/90 mmHg Sitting Heart Rate Pre-Dialysis 75 BPM Temperature Pre-Dialysis 97.2 degF Weight Pre-Dialysis 88.5 kg December 18, 2023 CCPD December 17, 2023 CCPD December 16, 2023 CCPD December 15, 2023 CCPD December 14, 2023 CCPD December 13, 2023 CCPD December 12, 2023 CCPD December 11, 2023 CCPD December 10, 2023 CCPD December 09, 2023 CCPD December 08, 2023 CCPD December 07, 2023 CCPD December 06, 2023 CCPD December 05, 2023 CCPD December 04, 2023 CCPD December 03, 2023 CCPD December 02, 2023 CCPD December 01, 2023 CCPD November 30, 2023 CCPD November 29, 2023 CCPD November 28, 2023 [facility]CPD November 27, 2023 [facility] BP Sitting (Pre-Dialysis) 148/86 mmHg Sitting Heart Rate Pre-Dialysis 84 BPM Temperature Pre-Dialysis 98 degF Weight Pre-Dialysis 88.5 kg November 27, 2023 CCPD November 26, 2023 [facility]CPD November 25, 2023 [facility]CPD November 24, 2023 [facility]D November 23, 2023 [facility]CPD November 22, 2023 CCPD November 21, 2023 CCPD November 20, 2023 CCPD November 19, 2023 CCPD November 18, 2023 CCPD November 17, 2023 CCPD November 16, 2023 CCPD November 15, 2023 CCPD November 14, 2023 CCPD November 13, 2023 CCPD November 12, 2023 [facility]D BP Sitting (Pre-Dialysis) 150/91 mmHg Sitting Heart Rate Pre-Dialysis 63 BPM Temperature Pre-Dialysis 98.2 degF Weight Pre-Dialysis 86.4 kg November 12, 2023 CCPD November 11, 2023 [facility]CPD November 10, 2023 CCPD November 09, 2023 CCPD November 08, 2023 CCPD November 07, 2023 CCPD November 06, 2023 CCPD November 05, 2023 CCPD November 04, 2023 CCPD November 03, 2023 CCPD November 02, 2023 CCPD November 01, 2023 CCPD October 31, 2023 CCPD October 30, 2023 CCPD October 29, 2023 CCPD October 28, 2023 CCPD October 27, 2023 CCPD October 26, 2023 CCPD October 25, 2023 CCPD October 24, 2023 CCPD October 23, 2023 CCPD October 22, 2023 [facility]CPD BP Sitting (Pre-Dialysis) 150/80 mmHg Sitting Heart Rate Pre-Dialysis 87 BPM Temperature Pre-Dialysis 98.3 degF Weight Pre-Dialysis 88.5 kg October 22, 2023 CCPD October 21, 2023 [facility]CPD October 20, 2023 CCPD October 19, 2023 CCPD October 18, 2023 CCPD October 17, 2023 CCPD October 16, 2023 CCPD October 15, 2023 CCPD October 14, 2023 CCPD October 13, 2023 CCPD October 12, 2023 CCPD October 11, 2023 CCPD October 10, 2023 CCPD October 09, 2023 CCPD October 08, 2023 CCPD October 07, 2023 CCPD October 06, 2023 [facility]CPD BP Sitting (Pre-Dialysis) 148/85 mmHg Sitting Heart Rate Pre-Dialysis 64 BPM Temperature Pre-Dialysis 98.5 degF Weight Pre-Dialysis 89.4 kg October 06, 2023 CCPD October 05, 2023 CCPD October 03, 2023 CCPD October 02, 2023 CCPD October 01, 2023 CCPD September 30, 2023 CCPD September 29, 2023 CCPD September 28, 2023 CCPD September 27, 2023 CCPD September 26, 2023 CCPD September 25, 2023 CCPD September 24, 2023 CCPD September 23, 2023 CCPD September 22, 2023 CCPD September 21, 2023 CCPD September 20, 2023 CCPD September 19, 2023 CCPD September 18, 2023 [facility]CPD BP Sitting (Pre-Dialysis) 121/73 mmHg Sitting Heart Rate Pre-Dialysis 68 BPM Temperature Pre-Dialysis 98.5 degF Weight Pre-Dialysis 88.5 kg September 18, 2023 CCPD September 17, 2023 CCPD September 16, 2023 CCPD September 15, 2023 CCPD September 14, 2023 CCPD September 13, 2023 CCPD September 12, 2023 CCPD September 11, 2023 CCPD September 10, 2023 [facility]CPD BP Sitting (Pre-Dialysis) 155/85 mmHg Sitting Heart Rate Pre-Dialysis 69 BPM Temperature Pre-Dialysis 99 degF Weight Pre-Dialysis 87.6 kg September 10, 2023 CCPD September 09, 2023 CCPD September 07, 2023 CCPD September 06, 2023 CCPD September 05, 2023 CCPD September 04, 2023 CCPD September 03, 2023 CCPD September 01, 2023 CCPD August 31, 2023 CCPD August 30, 2023 CCPD August 29, 2023 CCPD August 28, 2023 CCPD August 27, 2023 CCPD August 26, 2023 CCPD August 25, 2023 CCPD August 24, 2023 CCPD August 23, 2023 CCPD August 22, 2023 CCPD August 21, 2023 CCPD August 20, 2023 CCPD August 19, 2023 CCPD August 18, 2023 CCPD August 17, 2023 CCPD August 15, 2023 CCPD August 14, 2023 CCPD August 13, 2023 CCPD August 12, 2023 CCP BP Sitting (Pre-Dialysis) 138/79 mmHg Sitting Heart Rate Pre-Dialysis 72 BPM Temperature Pre-Dialysis 98.6 degF Weight Pre-Dialysis 88.2 kg August 12, 2023 CCPD August 11, 2023 CCPD August 10, 2023 CCPD August 08, 2023 CCPD August 07, 2023 CCPD August 06, 2023 CCPD August 05, 2023 CCPD August 04, 2023 CCPD August 02, 2023 CCPD August 01, 2023 CCPD July 31, 2023 CCPD July 30, 2023 CCPD July 29, 2023 CCPD July 28, 2023 CCPD July 27, 2023 CCPD July 25, 2023 CCPD July 24, 2023 CCPD July 23, 2023 CCPD July 22, 2023 CCPD July 21, 2023 CCPD July 20, 2023 CCPD July 19, 2023 CCPD July 18, 2023 CCPD July 16, 2023 CCPD July 15, 2023 CCPD July 14, 2023 CCPD July 13, 2023 CCPD July 11, 2023 CCPD July 10, 2023 CCPD July 09, 2023 CCPD July 08, 2023 CCPD July 07, 2023 CCPD July 06, 2023 CCPD July 05, 2023 CCPD July 04, 2023 CCPD July 03, 2023 CCPD July 02, 2023 [facility]CPD BP Sitting (Pre-Dialysis) 170/90 mmHg Sitting Heart Rate Pre-Dialysis 75 BPM Temperature Pre-Dialysis 98.7 degF Weight Pre-Dialysis 196.7 kg July 01, 2023 CCPD June 30, 2023 CCPD June 29, 2023 CCPD June 28, 2023 CCPD June 27, 2023 CCPD June 26, 2023 CCPD June 25, 2023 CCPD June 24, 2023 CCPD June 23, 2023 CCPD June 22, 2023 CCPD June 21, 2023 CCPD June 20, 2023 CCPD June 19, 2023 [facility]CPD BP Sitting (Pre-Dialysis) 165/94 mmHg Sitting Heart Rate Pre-Dialysis 73 BPM Temperature Pre-Dialysis 98.5 degF Weight Pre-Dialysis 89.2 kg June 19, 2023 CCPD June 18, 2023 CCPD June 16, 2023 CCPD June 15, 2023 CCPD June 14, 2023 CCPD June 13, 2023 CCPD June 12, 2023 CCPD June 11, 2023 CCPD June 10, 2023 CCPD June 09, 2023 CCPD June 08, 2023 CCPD June 07, 2023 CCPD June 06, 2023 CCPD June 05, 2023 CCPD June 04, 2023 [facility]CPD BP Sitting (Pre-Dialysis) 160/80 mmHg Sitting Heart Rate Pre-Dialysis 61 BPM Temperature Pre-Dialysis 98.3 degF Weight Pre-Dialysis 89.8 kg June 04, 2023 CCPD June 03, 2023 CCPD June 02, 2023 CCPD June 01, 2023 CCPD May 31, 2023 CCPD May 30, 2023 CCPD May 29, 2023 [facility]CPD BP Sitting (Pre-Dialysis) 153/89 mmHg Sitting Heart Rate Pre-Dialysis 74 BPM Temperature Pre-Dialysis 98.8 degF Weight Pre-Dialysis 86.2 kg May 29, 2023 CCPD May 28, 2023 CCPD May 27, 2023 CCPD May 26, 2023 CCPD May 25, 2023 CCPD May 24, 2023 CCPD May 23, 2023 CCPD May 22, 2023 CCPD May 21, 2023 CCPD May 20, 2023 CCPD May 19, 2023 CCPD May 18, 2023 CCPD May 17, 2023 CCPD May 16, 2023 CCPD May 15, 2023 CCPD BP Sitting (Pre-Dialysis) 135/88 mmHg Sitting Heart Rate Pre-Dialysis 62 BPM Temperature Pre-Dialysis 97.7 degF Weight Pre-Dialysis 86.2 kg May 15, 2023 CCPD May 14, 2023 CCPD May 13, 2023 CCPD May 12, 2023 CCPD May 11, 2023 CCPD May 10, 2023 CCPD May 09, 2023 CCPD May 08, 2023 [facility]CPD BP Sitting (Pre-Dialysis) 109/77 mmHg Sitting Heart Rate Pre-Dialysis 64 BPM Temperature Pre-Dialysis 98.3 degF Weight Pre-Dialysis 82.4 kg May 08, 2023 CCPD May 07, 2023 CCPD May 06, 2023 CCPD May 05, 2023 CCPD May 04, 2023 CCPD May 03, 2023 CCPD May 02, 2023 CCPD May 01, 2023 CCPD April 30, 2023 CCPD April 29, 2023 CCPD April 28, 2023 CCPD April 27, 2023 CCPD April 26, 2023 CCPD April 25, 2023 CCPD April 24, 2023 CCPD April 23, 2023 CCPD April 22, 2023 CCPD April 21, 2023 CCPD April 20, 2023 CCPD April 19, 2023 CCPD April 17, 2023 [facility]CPD BP Sitting (Pre-Dialysis) 141/109 mmHg BP Standing (Pre-Dialysis) 124/101 mmHg Sitting Heart Rate Pre-Dialysis 71 BPM Standing Heart Rate Pre-Dialysis 70 BPM Temperature Pre-Dialysis 98.2 degF Weight Pre-Dialysis 86.2 kg April 17, 2023 CCPD April 16, 2023 CCPD April 15, 2023 CCPD April 14, 2023 CCPD 2023 CCPD April 12, 2023 CCPD April 11, 2023 CCPD April 10, 2023 CCPD April 09, 2023 [facility]CPD BP Sitting (Pre-Dialysis) 160/90 mmHg Sitting Heart Rate Pre-Dialysis 74 BPM Temperature Pre-Dialysis 98.9 degF Weight Pre-Dialysis 85.7 kg April 09, 2023 CCPD April 08, 2023 CCPD April 07, 2023 CCPD April 06, 2023 CCPD April 05, 2023 CCPD April 04, 2023 CCPD April 03, 2023 CCPD April 02, 2023 CCPD April 01, 2023 CCPD March 31, 2023 CCPD March 30, 2023 CCPD March 29, 2023 CCPD March 28, 2023 CCPD March 27, 2023 [facility]CPD BP Sitting (Pre-Dialysis) 163/81 mmH g Sitting Heart Rate Pre-Dialysis 77 BPM Temperature Pre-Dialysis 98.8 degF Weight Pre-Dialysis 84.7 kg March 27, 2023 CCPD March 26, 2023 CCPD March 25, 2023 CCPD March 24, 2023 CCPD March 23, 2023 CCPD March 22, 2023 CCPD March 21, 2023 CCPD March 20, 2023 CCPD March 19, 2023 CCPD March 18, 2023 CCPD March 17, 2023 CCPD March 16, 2023 CCPD March 15, 2023 CCPD March 14, 2023 CCPD March 13, 2023 CCPD March 12, 2023 CCPD March 11, 2023 CCPD March 10, 2023 CCPD March 09, 2023 CCPD March 08, 2023 CCPD March 07, 2023 CCPD March 06, 2023 CCPD March 05, 2023 CCPD March 04, 2023 CCPD March 03, 2023 CCPD March 02, 2023 CCPD March 01, 2023 CCPD February 28, 2023 CCPD February 27, 2023 CCPD February 26, 2023 CCPD February 25, 2023 CCPD February 24, 2023 CCPD February 23, 2023 CCPD February 22, 2023 CCPD February 21, 2023 CCPD February 20, 2023 CCPD February 19, 2023 CCPD February 18, 2023 CCPD February 17, 2023 CCPD February 16, 2023 CCPD February 15, 2023 CCPD February 14, 2023 CCPD February 13, 2023 CCPD February 12, 2023 CCPD February 11, 2023 CCPD February 09, 2023 CCPD February 08, 2023 CCPD February 07, 2023 CCPD February 06, 2023 CCPD February 05, 2023 CCPD February 04, 2023 [facility]CPD BP Sitting (Pre-Dialysis) 160/86 mmHg Sitting Heart Rate Pre-Dialysis 64 BPM Temperature Pre-Dialysis 98.6 degF Weight Pre-Dialysis 88.8 kg February 04, 2023 CCPD February 03, 2023 CCPD February 01, 2023 CCPD January 31, 2023 CCPD January 30, 2023 CCPD January 29, 2023 CCPD January 28, 2023 CCPD January 27, 2023 CCPD January 26, 2023 CCPD January 25, 2023 CCPD January 24, 2023 CCPD January 23, 2023 CCPD January 22, 2023 CCPD January 21, 2023 CCPD January 20, 2023 CCPD January 19, 2023 CCPD January 18, 2023 CCPD January 17, 2023 CCPD January 16, 2023 CCPD January 15, 2023 CCPD January 14, 2023 [facility]CPD BP Sitting (Pre-Dialysis) 134/74 mmHg Sitting Heart Rate Pre-Dialysis 74 BPM Temperature Pre-Dialysis 98.4 degF Weight Pre-Dialysis 89 kg January 14, 2023 CCPD January 13, 2023 CCPD January 12, 2023 CCPD January 11, 2023 CCPD January 10, 2023 CCPD January 09, 2023 CCPD January 08, 2023 CCPD January 07, 2023 CCPD January 06, 2023 CCPD January 05, 2023 CCPD January 04, 2023 CCPD January 03, 2023 CCPD January 02, 2023 CCPD January 01, 2023 CCPD December 31, 2022 CCPD December 30, 2022 CCPD December 29, 2022 CCPD December 28, 2022 CCPD December 27, 2022 CCPD December 26, 2022 CCPD December 24, 2022 CCPD December 23, 2022 CCPD December 22, 2022 CCPD December 21, 2022 CCPD December 20, 2022 CCPD December 19, 2022 CCPD December 18, 2022 CCPD December 17, 2022 CCPD December 16, 2022 CCPD December 15, 2022 CCPD December 14, 2022 CCPD December 13, 2022 CCPD December 12, 2022 [facility]D BP Sitting (Pre-Dialysis) 180/87 mmHg Sitting Heart Rate Pre-Dialysis 75 BPM Temperature Pre-Dialysis 97.9 degF Weight Pre-Dialysis 91.2 kg December 12, 2022 CCPD December 11, 2022 CCPD December 10, 2022 CCPD December 09, 2022 CCPD December 08, 2022 CCPD December 07, 2022 [facility]CPD BP Sitting (Pre-Dialysis) 140/80 mmHg Sitting Heart Rate Pre-Dialysis 80 BPM Temperature Pre-Dialysis 98 degF Weight Pre-Dialysis 91.2 kg December 07, 2022 CCPD December 06, 2022 CCPD December 05, 2022 CCPD December 04, 2022 CCPD December 03, 2022 CCPD December 02, 2022 [facility]D BP Sitting (Pre-Dialysis) 150/82 mmHg Sitting Heart Rate Pre-Dialysis 74 BPM Temperature Pre-Dialysis 98.7 degF Weight Pre-Dialysis 91.2 kg December 02, 2022 CCPD December 01, 2022 CCPD November 30, 2022 CCPD November 29, 2022 [facility]D BP Sitting (Pre-Dialysis) 150/82 mmHg Sitting Heart Rate Pre-Dialysis 74 BPM Temperature Pre-Dialysis 98.7 degF Weight Pre-Dialysis 91.2 kg November 29, 2022 [facility]CPD November 28, 2022 [facility]CPD November 27, 2022 [facility]D BP Sitting (Pre-Dialysis) 128/67 mmHg Sitting Heart Rate Pre-Dialysis 75 BPM Temperature Pre-Dialysis 99.7 degF Weight Pre-Dialysis 91.2 kg November 27, 2022 CCPD November 26, 2022 [facility]D BP Sitting (Pre-Dialysis) 170/83 mmHg Sitting Heart Rate Pre-Dialysis 77 BPM Temperature Pre-Dialysis 98.9 degF Weight Pre-Dialysis 91.2 kg November 26, 2022 CCPD November 25, 2022 [facility]CPD November 24, 2022 CCPD November 23, 2022 CCPD November 22, 2022 CCPD November 21, 2022 [facility]D BP Sitting (Pre-Dialysis) 160/83 mmHg Sitting Heart Rate Pre-Dialysis 74 BPM Temperature Pre-Dialysis 98.3 degF Weight Pre-Dialysis 91.2 kg November 21, 2022 CCPD November 20, 2022 CCPD November 19, 2022 [facility]D November 18, 2022 [facility]CPD November 17, 2022 CCPD November 16, 2022 CCPD November 15, 2022 CCPD November 14, 2022 [facility]D BP Sitting (Pre-Dialysis) 180/83 mmHg BP Standing (Pre-Dialysis) 161/89 mmHg Sitting Heart Rate Pre-Dialysis 70 BPM Standing Heart Rate Pre-Dialysis 76 BPM Temperature Pre-Dialysis 98 degF Weight Pre-Dialysis 91.5 kg November 14, 2022 CCPD November 13, 2022 CCPD November 12, 2022 CCPD November 11, 2022 CCPD November 10, 2022 CCPD November 09, 2022 CCPD November 08, 2022 CCPD November 07, 2022 CCPD November 06, 2022 CCPD November 05, 2022 CCPD November 04, 2022 CCPD November 03, 2022 CCPD November 02, 2022 CCPD November 01, 2022 CCPD October 31, 2022 CCPD October 30, 2022 CCPD October 29, 2022 CCPD October 28, 2022 CCPD October 27, 2022 CCPD October 26, 2022 CCPD October 25, 2022 CCPD October 24, 2022 CCPD October 23, 2022 CCPD October 22, 2022 CCPD October 21, 2022 CCPD October 20, 2022 CCPD October 19, 2022 CCPD October 18, 2022 CCPD October 17, 2022 [facility]CPD BP Sitting (Pre-Dialysis) 168/91 mmHg Sitting Heart Rate Pre-Dialysis 63 BPM Temperature Pre-Dialysis 98.2 degF Weight Pre-Dialysis 90 kg October 17, 2022 CCPD October 16, 2022 CCPD October 15, 2022 CCPD October 14, 2022 CCPD October 13, 2022 CCPD October 11, 2022 CCPD October 10, 2022 CCPD October 09, 2022 CCPD October 08, 2022 CCPD October 07, 2022 CCPD October 05, 2022 CCPD October 04, 2022 CCPD October 03, 2022 CCPD October 02, 2022 CCPD October 01, 2022 CCPD October 01, 2022 [facility]D BP Sitting (Pre-Dialysis) 184/91 mmHg Sitting Heart Rate Pre-Dialysis 76 BPM Temperature Pre-Dialysis 98.2 degF Weight Pre-Dialysis 88 kg September 29, 2022 CCPD September 28, 2022 CCPD September 27, 2022 CCPD September 26, 2022 CCPD September 25, 2022 CCPD September 24, 2022 CCPD September 23, 2022 CCPD September 22, 2022 CCPD September 21, 2022 CCPD September 20, 2022 CCPD September 19, 2022 CCPD September 18, 2022 CCPD September 17, 2022 CCPD September 16, 2022 CCPD September 15, 2022 CCPD September 14, 2022 CCPD September 13, 2022 CCPD September 12, 2022 CCPD September 11, 2022 CCPD September 10, 2022 CCPD September 09, 2022 CCPD September 08, 2022 CCPD September 07, 2022 CCPD September 06, 2022 CCPD September 05, 2022 CCPD September 04, 2022 CCPD September 03, 2022 CCPD September 02, 2022 CCPD September 01, 2022 CCPD August 31, 2022 CCPD August 30, 2022 [facility]CPD BP Sitting (Pre-Dialysis) 168/48 mmHg Sitting Heart Rate Pre-Dialysis 20 BPM Temperature Pre-Dialysis 98.6 degF Weight Pre-Dialysis 90 kg August 30, 2022 CCPD August 29, 2022 CCPD August 28, 2022 CCPD August 27, 2022 CCPD August 26, 2022 CCPD August 25, 2022 CCPD August 24, 2022 CCPD August 23, 2022 CCPD August 22, 2022 CCPD August 21, 2022 CCPD August 20, 2022 CCPD August 19, 2022 CCPD August 18, 2022 CCPD August 17, 2022 CCPD August 16, 2022 CCPD August 15, 2022 CCPD August 14, 2022 CCPD August 13, 2022 CCPD August 12, 2022 [facility]CPD BP Sitting (Pre-Dialysis) 194/90 mmHg BP Standing (Pre-Dialysis) 191/94 mmHg Sitting Heart Rate Pre-Dialysis 79 BPM Standing Heart Rate Pre-Dialysis 79 BPM Temperature Pre-Dialysis 98 degF Weight Pre-Dialysis 92 kg August 12, 2022 [facility]CPD August 11, 2022 CCPD August 10, 2022 CCPD August 09, 2022 CCPD August 08, 2022 CCPD August 07, 2022 [facility]CPD BP Sitting (Pre-Dialysis) 173/88 mmHg Sitting Heart Rate Pre-Dialysis 71 BPM Temperature Pre-Dialysis 96.8 degF Weight Pre-Dialysis 92.6 kg August 07, 2022 CCPD August 06, 2022 CCPD August 05, 2022 CCPD August 04, 2022 CCPD August 03, 2022 CCPD August 02, 2022 CCPD August 01, 2022 CCPD July 31, 2022 CCPD July 30, 2022 CCPD July 29, 2022 CCPD July 28, 2022 CCPD July 27, 2022 CCPD July 26, 2022 CCPD July 25, 2022 CCPD July 24, 2022 CCPD July 23, 2022 CCPD July 22, 2022 CCPD July 21, 2022 CCPD July 20, 2022 CCPD July 19, 2022 CCPD July 18, 2022 [facility]CPD BP Sitting (Pre-Dialysis) 141/94 mmHg BP Standing (Pre-Dialysis) 130/78 mmHg Sitting Heart Rate Pre-Dialysis 66 BPM Standing Heart Rate Pre-Dialysis 62 BPM Temperature Pre-Dialysis 98 degF Weight Pre-Dialysis 86.4 kg July 18, 2022 CCPD July 17, 2022 CCPD July 16, 2022 CCPD July 15, 2022 CCPD July 14, 2022 CCPD July 13, 2022 CCPD July 12, 2022 CCPD July 11, 2022 CCPD BP Sitting (Pre-Dialysis) 154/88 mmHg BP Standing (Pre-Dialysis) 165/80 mmHg Sitting Heart Rate Pre-Dialysis 66 BPM Standing Heart Rate Pre-Dialysis 66 BPM Temperature Pre-Dialysis 98.6 degF Weight Pre-Dialysis 90 kg July 11, 2022 CCPD July 10, 2022 CCPD July 09, 2022 CCPD July 08, 2022 CCPD July 07, 2022 [facility] July 06, 2022 [facility] July 05, 2022 [facility] July 04, 2022 [facility] July 03, 2022 [facility] July 02, 2022 [facility] July 01, 2022 [facility] June 30, 2022 [facility] June 29, 2022 [facility] June 28, 2022 [facility] June 27, 2022 [facility] June 26, 2022 [facility] June 25, 2022 [facility] June 24, 2022 [facility] June 23, 2022 [facility] June 22, 2022 [facility] June 21, 2022 [facility] June 20, 2022 [facility] June 19, 2022 [facility] June 18, 2022 [facility] June 17, 2022 [facility] June 16, 2022 [facility] June 15, 2022 [facility] June 14, 2022 [facility] June 13, 2022 [facility] BP Sitting (Pre-Dialysis) 181/87 mmHg BP Standing (Pre-Dialysis) 180/89 mmHg Sitting Heart Rate Pre-Dialysis 77 BPM Standing Heart Rate Pre-Dialysis 77 BPM Temperature Pre-Dialysis 98.3 degF Weight Pre-Dialysis 90 kg June 13, 2022 [facility] June 12, 2022 [facility] June 11, 2022 [facility] June 10, 2022 [facility] June 09, 2022 [facility] Encounters No encounter information to report Immunizations Ordered Immunization Name Filled Immunization Name Date Status Comments Refusal Reason TST-PPD intradermal 2024-05-11 21:45:00 TST-PPD intradermal 2023-05-08 20:30:00
--- OUTSIDE RECORDS SUMMARY | 2025-05-25 13:45 | XMS_ITS | Encounter Summary ---
Author Organization [facility] Address [address] [place] [address] Phone Care Team Providers Care Wax Engraver Name Role Phone Ariel Lua Nikhil DPM Unavailable [phone] Aisha Medina APRN, FOOD SERVICE SALES REPRESENTATIVES Primary Care Prov ider Juanjo Mclaughlin MD Unavailable Rita Lynne MD Unavailable Meron Gurrola RN Unavailable Unavailable Meron Gurrola RN Unavailable Unavailable Reason for Visit * Reason Comments Medication Refill Encounter Details Date Type Department Care Team (Late st Contact Info) Description 08/13/2023 Refill [facility] - Family Medicine [facility] #2 [place] [address] Aisha Medina APRN, FOOD SERVICE SALES REPRESENTATIVES #[address] [address] Medication Refill Social History Tobacco [...] Mindi Hardwick RN - 08/13/2023 1:22 PM MINIATURE SET CONSTRUCTOR Medication failed the protocol, provider to review [...] Oskatherin Mendieta Showing recent visits within past 365 days and meeting all other requirements Future Appointments No visits were found meeting these conditions. Showing future appointments within next 90 days and meeting all other requirements Passed - Absence of nitrates on med list ATURE SET CONSTRUCTOR documented in this encounter Plan of Treatment Upcoming Encounters Date Type Department Care Team (Late st Contact Info) Description 06/02/2025 9:45 AM MINIATURE SET CONSTRUCTOR Office Visit [facility] - Family Medicine [facility] [address]2 [place] [address] Aisha Medina APRN, CNP #[address] [address] documented as of this encounter Visit Diagnoses Not on filedocumented in this encounter Additional Health Concerns Assessment Noted Time PHQ-9 Depression Total Score: 0 07/07/19 24 2:00 PM MINIATURE SET CONSTRUCTOR documented as of this encounter Care Teams Wax Engraver Relationship Specialty Start Date End Date Aisha Medina APRN, CNP #[address] [address] PCP - General Advanced Practice Nurse 07/17/18 Ariel Lua DPM Consulting Physician Podiatry 12/02/16 Juanjo Mclaughlin MD [address] [place] [address] Consulting Physician Oncology 12/01/19 Rita Lynne MD #[address] [address] Consulting Physician Endocrinology 10/17/22 Meron Gurrola RN [place] Nurse Clinical Neuropsychologist 01/09/24 01/15/24 Meron Gurrola RN [place] Nurse Clinical Neuropsychologist 11/26/24 12/08/24 documented as of this encounter
--- OUTSIDE RECORDS SUMMARY | 2025-05-25 13:45 | XMS_ITS | Encounter Summary ---
Author Organization [facility] Address [address] [facility] [place] [address] Care Team Providers Care Garment Turner Name Role Phone Rita Lynne MD Unavailable Martha Worrell MD Unavailable Aisha Medina APRN-RECREATIONAL VEHICLE REPAIRER Primary Care Provide r Encounter Details Date Type Department Care Team (Late st Contact Info) Description 03/22/2025 Telephone [facility] - Vascular Surgery [address] [place] [address], [place] [address] Dolores Edwards MD [address] [place] [address] [place] [address] Social History Tobacco Use Types [...] and heating? Not hard at all 03/23/2025 [facility] of Occupat ional Health - Occupational Stress [...] place to sleep or slept in a assisted (including now)? No 12/25/2022 Housing Stability Vital Sign Answer Robe e Recorded In the last 12 months, was t here a time when you were not able to pay the mortgage or rent on time? No 03/23/2025 In the past 12 months, how m any times have you moved where you were living? 0 03/23/2025 At any time in the past 12 m [facility], were you homeless or living in a assisted (including now)? No 03/23/2025 Sex and Gender Information Value Date Recorded Sex Assigned at Not on file Legal Sex Male 12:43 PM CDT Gender Identity Not on file Sexual Orientation Not on file documented as of this encounter Functional Status * Functional and Cognitive Status Question Answer Date of Assessment Author Is person deaf or have oliverio us hearing difficulty? No 03/23/2025 10:13 PM Caitlin Hicks RN Is person blind or have seri ous difficulty seeing? No 03/23/2025 10:13 PM Caitlin Hicks RN Does person have serious difficulty walking/climbing stairs? No 03/23/2025 10:13 PM Caitlin Hicks RN Does person have difficulty dressing/bathing? No 03/23/2025 10:13 PM Caitlin Hicks RN Does person have difficulty doing errands alone? No 03/23/2025 10:13 PM Caitlin Hicks RN Does person have difficulty concentrating/remembering/making decisions? No 03/23/2025 10:13 PM Caitlin Hicks RN * Question Answer Date of Assessment Author Q1: How often do you have a drink containing alcohol? Monthly or less 03/23/2025 10:13 PM Caitlin Hicks RN Q2: How many drinks containing alcohol do you have on a typical day when you are drinking? 1 or 2 03/23/2025 10:13 PM Aneesh Hicks RN Q3: How often do you have six or more drinks on one occasion? Never 03/23/2025 10:13 PM Caitlin Hicks RN * AUDIT-C Score Answer Date of Assessment Author 1 03/23/2025 10:13 PM Caitlin Hicks RN * Is person deaf or have serious hearing difficulty? Answer Date of Assessment Author No 03/18/2025 2:19 PM SILVANAT Shantel Vigil RN * Is person blind or have serious difficulty seeing? Answer Date of Assessment Author No 03/18/2025 2:19 PM SILVANAT Shantel Vigil RN * Does person have serious difficulty walking/climbing stairs? Answer Date of Assessment Author No 03/18/2025 2:19 PM SILVANAT Shantel Vigil RN * Does person have difficulty dressing/bathing? Answer Date of Assessment Author No 03/18/2025 2:19 PM Shantel Kellogg RN * Does person have difficulty doing errands alone? Answer Date of Assessment Author No 03/18/2025 2:19 PM Shantel Kellogg RN documented as of this encounter Mental Status * Does person have difficulty concentrating/remembering/making decisions? Answer Entry Date Author No 03/18/2025 2:19 PM CDT Shantel Vigil RN documented in this encounter Miscellaneous Notes * Telephone Encounter - Aileen Arias - 03/22/2025 1:25 PM CDT Patient surgery moved from 04/06/2025 to 03/23/2025. PA submitted as expedited urgent with [facility] on 03/22/2025 [[id number]] waiting on approval.-KJ documented in this encounter Plan of Treatment Upcoming Encounters Date Type Department Care Team (Late st Contact Info) Description 05/31/2025 3:00 PM SPECIAL ASSETS OFFICER Office Visit [facility] - Endocrinology [facility] [place] [address] Michael Arceo MD [address] [facility] [address] [place] [address] 06/02/2025 1:00 PM SPECIAL ASSETS OFFICER Appointment [facility] [address] [place] [address] Dolores Edwards MD [address] [facility] [address] [place] [address] 06/02/2025 2:00 PM SPECIAL ASSETS OFFICER Appointment [facility] [address] [place] [address] Dolores Edwards MD [address] [facility] [address] [place] [address] 06/08/2025 10:45 AM SPECIAL ASSETS OFFICER Office Visit [facility] - Vascular Surgery [address] [facility], [place] [address] Dolores Edwards MD [address] [place] [address] 2L [place] [address] 07/13/2025 9:30 AM SPECIAL ASSETS OFFICER Office Visit [facility] - Nephrology [facility] [facility], [place] [address] documented as of this encounter Goals Goal Patient Goal Type Associated Problems Recent Progress Patient-Stated? Author Blood Pressure < 140/90 Blood Pressure 153/81(2024 11:04 AM CDT) Tammy Santiago RN documented as of this encounter Visit Diagnoses Not on filedocumented in this encounter Care Teams Garment Turner Relationship Specialty Start Date End Date Aisha Medina APRN-RECREATIONAL VEHICLE REPAIRER PCP - General Nurse Practitioner 03/12/19 Rita Lynne MD 03/02/19 Martha Worrell MD Nephrology 03/12/19 documented as of this encounter
--- OUTSIDE RECORDS SUMMARY | 2025-05-25 13:45 | XMS_ITS | Encounter Summary ---
Author Organization [facility] Address [address] [place] [address] Phone Care Team Providers Care Tombstone Carver Name Role Phone Ariel Lua Nikhil DPM Unavailable [phone] Aisha Medina APRN, COMMUNITY LIFE DIRECTOR Primary Care Prov ider Juanjo Mclaughlin MD Unavailable Rita Lynne MD Unavailable Meron Gurrola RN Unavailable Unavailable Meron Gurrola RN Unavailable Unavailable Reason for Visit * Reason Comments Medication Refill Encounter Details Date Type Department Care Team (Late st Contact Info) Description 10/19/2023 Refill [facility] - Family Medicine [facility] [address]2 [place] [address] Aisha Medina APRN, COMMUNITY LIFE DIRECTOR #[address] [address] Medication Refill Social History [...] Telephone Encounter - Jade Vega RN - 10/20/2023 1:41 PM CDT Medication [...] 07/01/23 Office Visit Aisha Medina APRN, CNP [facility] [...] 07/01/23 Office Visit Aisha Medina APRN, CNP [facility] Showing recent visits within past 365 days and meeting all other requirements Future Appointments Date Type Provider Dept 12/30/23 Appointment Aisha Median APRN, CNP [facility] Showing future appointments [...] [facility] Showing recent visits within past 270 days [...] st Contact Info) Description 06/02/2025 9:45 AM INDUSTRIAL TRUCK MECHANIC Office Visit [facility] - Family [facility] [address] [place] [address] Aisha Medina APRN, CNP #[address] [address] documented as of this encounter Visit Diagnoses Diagnosis 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, not stated as uncontrolled Hypertension, unspecified type 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, not stated as uncontrolled RLS (restless legs syndrome) Restless legs syndrome (RLS) documented in this encounter Additional Health Concerns Assessment Noted Time PHQ-9 Depression Total Score: 0 07/07/19 2:00 PM INDUSTRIAL TRUCK MECHANIC documented as of this encounter Care Teams Tombstone Carver Relationship Specialty Start Date End Date Aisha Medina APRN, CNP #2 [facility] [address] [place] [address] PCP - General Advanced Practice Nurse 07/17/18 Ariel Lua DPM Consulting Physician Podiatry 12/02/16 Juanjo Mclaughlin MD [address] [place] [address] Consulting Physician Oncology 12/01/19 Rita Lynne MD #2 [facility] [address] [place] [address] Consulting Physician Endocrinology 10/17/22 Meron Gurrola, RN [place] Nurse Machine Silver Stripper 01/09/24 01/15/24 Meron Gurrola, RN [place] Nurse Machine Silver Stripper 11/26/24 12/08/24 documented as of this encounter
--- OUTSIDE RECORDS SUMMARY | 2025-05-25 13:46 | XMS_ITS | Encounter Summary ---
Author Organization [facility] Address [address] [place] [address] Phone Care Team Providers Care Industrial Maintenance Instructor Name Role Phone Ariel Lua Nikhil DPM Unavailable [phone] Aisha Medina APRN, RN HOME HEALTH Primary Care Prov ider Juanjo Mclaughlin MD Unavailable Rita Lynne MD Unavailable Meron Gurrola RN Unavailable Unavailable Meron Gurrola RN Unavailable Unavailable Reason for Visit * Reason Comments Medication Refill Encounter Details Date Type Department Care Team (Late st Contact Info) Description 11/23/2020 [facility]ill [facility] [address]2 [place] [address] Rita Lynne MD #[address] [address] Medication Refill Social History Tobacco [...] st Contact Info) Description 06/02/2025 9:45 AM MELT ROOM OPERATOR Office Visit [facility] - [facility] - [place] #2 [place] [address] Aisha Medina APRN, RN HOME HEALTH #[address] [phone] documented as of this encounter Visit Diagnoses Not on filedocumented in this encounter Additional Health Concerns Assessment Noted Time PHQ-9 Depression Total Score: 0 07/01/19 20 11:36 AM MELT ROOM OPERATOR documented as of this encounter Care Teams Industrial Maintenance Instructor Relationship Specialty Start Date End Date Aisha Medina APRN, RN HOME HEALTH #[address] [address] PCP - General Advanced Practice Nurse 07/17/18 Ariel Lua DPM Consulting Physician Podiatry 12/02/16 Juanjo Mclaughlin MD [address] [place] [address] Consulting Physician Oncology 12/01/19 Rita Lynne MD #[address] [address] Consulting Physician Endocrinology 10/17/22 Meron Gurrola RN [place] Nurse Electroencephalographic Technician 01/09/24 01/15/24 Meron Gurrola RN [place] Nurse Electroencephalographic Technician 11/26/24 12/08/24 documented as of this encounter
--- OUTSIDE RECORDS SUMMARY | 2025-05-25 13:46 | XMS_ITS | Encounter Summary ---
Author Organization [facility] Address [address] [place] [address] Phone Care Team Providers Care Broom Bundler Name Role Phone Ariel Lua DPM Unavailable [phone] Aisha Medina APRN, INTERNAL SALES Primary Care Prov ider Juanjo Mclaughlin MD Unavailable Rita Lynne MD Unavailable Meron Gurrola RN Unavailable Unavailable Meron Gurrola RN Unavailable Unavailable Reason for Visit * Reason Comments Medication Refill Encounter Details Date Type Department Care Team (Late st Contact Info) Description 08/31/2020 Refill [facility] [address] [place] [address] Aisha Medina APRN, INTERNAL SALES #[address] [address] Medication Refill Social History [...] Receipt confirmed by pharmacy (08/01/2020 ??2:34 PM BIRD TRAPPER) atorvastatin (LIPITOR) 40 MG Tablet [[id number]] 143 Status: Active Ordering user: Aisha Medina APN, CNP 08/01/20 143 Authorized by: Aisha Medina APN, CNP Frequency: ??08/01/20 - Until Discontinued Released by: Aisha Medina APN, CNP 08/01/20 143 Diagnoses Hypertension, unspecified type [I10] Hyperlipidemia, unspecified hyperlipidemia type [E78.5] Associated Diagnoses Hypertension, unspecified type Hyperlipidemia, unspecified hyperlipidemia type Pharmacy [place], [place] - [address] duplicate TRAPPER documented in this encounter Plan of Treatment Upcoming Encounters Date Type Department Care Team (Late st Contact Info) Description 06/02/2025 9:45 AM BIRD TRAPPER [facility] [place] [address] Aisha Medina APRN, CNP #[address] [address] documented as of this encounter Visit Diagnoses Diagnosis Hypertension, unspecified type Hyperlipidemia, unspecified hyperlipidemia type documented in this encounter Additional Health Concerns Assessment Noted Time PHQ-9 Depression Total Score: 0 07/01/19 20 11:36 AM BIRD TRAPPER documented as of this encounter Care Teams Broom Bundler Relationship Specialty Start Date End Date Aisha Medina APRN, CNP #2 [facility] [address] [place] [address] PCP - General Advanced Practice Nurse 07/17/18 Ariel Lua DPM Consulting Physician Podiatry 12/02/16 Juanjo Mclaughlin MD [address] [place] [address] Consulting Physician Oncology 12/01/19 Rita Lynne MD #2 [facility] [address] [place] [address] Consulting Physician Endocrinology 10/17/22 Meron Gurrola RN [place] Nurse Health Care Analyst 01/09/24 01/15/24 Meron Gurrola RN [place] Nurse Health Care Analyst 11/26/24 12/08/24 documented as of this encounter
--- OUTSIDE RECORDS SUMMARY | 2025-05-25 13:46 | XMS_ITS | Encounter Summary ---
Author Organization [facility] Address [address] [place] [address] Phone Care Team Providers Care Sweeper Operator Highways Name Role Phone Ariel Lua Nikhil DPM Unavailable [phone] Aisha Medina APRN, CLINICAL PHARMACIST Primary Care Prov ider Juanjo Mclaughlin MD Unavailable Rita Lynne MD Unavailable Meron Gurrola RN Unavailable Unavailable Meron Gurrola RN Unavailable Unavailable Reason for Visit * Reason Comments Medication Refill Encounter Details Date Type Department Care Team (Late st Contact Info) Description 11/22/2020 Refill [facility] #2 [place] [address] Rita Lynne MD #[address] [address] Medication Refill Social History Tobacco [...] st Contact Info) Description 06/02/2025 9:45 AM TAX SERVICES MANAGER Office Visit [facility] - [facility] - [place] #2 [place] [address] Aisha Medina APRN, CLINICAL PHARMACIST #[address] [phone] documented as of this encounter Visit Diagnoses Not on filedocumented in this encounter Additional Health Concerns Assessment Noted Time PHQ-9 Depression Total Score: 0 07/01/19 20 11:36 AM TAX SERVICES MANAGER documented as of this encounter Care Teams Sweeper Operator Highways Relationship Specialty Start Date End Date Asiha Medina APRN, CLINICAL PHARMACIST #[address] [address] PCP - General Advanced Practice Nurse 07/17/18 Ariel Lua DPM Consulting Physician Podiatry 12/02/16 Juanjo Mclaughlin MD [address] [place] [address] Consulting Physician Oncology 12/01/19 Rita Lynne MD #[address] [address] Consulting Physician Endocrinology 10/17/22 Meron Gurrola RN [place] Nurse Global Director Air And Climate Change 01/09/24 01/15/24 Meron Gurrola RN [place] Nurse Global Director Air And Climate Change 11/26/24 12/08/24 documented as of this encounter
--- OUTSIDE RECORDS SUMMARY | 2025-05-25 13:46 | XMS_ITS | Encounter Summary ---
Author Organization [facility] Address [address] [place] [address] Phone Care Team Providers Care Mill Roll Rewinder Name Role Phone Ariel Lua Nikhil DPM Unavailable [phone] Aisha Medina APRN, SEW ON OPERATOR Primary Care Prov ider Juanjo Mclaughlin MD Unavailable Rita Lynne MD Unavailable Meron Gurrola RN Unavailable Unavailable Meron Gurrola RN Unavailable Unavailable Reason for Visit * Reason Comments Medication Refill Encounter Details Date Type Department Care Team (Late st Contact Info) Description 01/29/2023 Refill [facility] #2 [place] [address] Aisha Medina APRN, SEW ON OPERATOR #[address] [address] Medication Refill Social History [...] 04/11/22 Office Visit [facility] Show[facility] recent visits within past 365 days and meeting all other requirements Future Appointments No visits were found meeting these conditions. 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, not stated as uncontrolled documented in this encounter Additional Health Concerns Assessment Noted Time PHQ-9 Depression Total Score: 0 03/01/20 21 10:00 AM CDT documented as of this encounter Care Teams Mill Roll Rewinder Relationship Specialty Start Date End Date Aisha Medina APRN, SEW ON OPERATOR #2 [facility] [address] [place] [address] PCP - General Advanced Practice Nurse 07/17/18 Ariel Lua DPM Consulting Physician Podiatry 12/02/16 Juanjo Mclaughlin MD [address] [place] [address] Consulting Physician Oncology 12/01/19 Rita Lynne MD #2 [facility] [address] [place] [address] Consulting Physician Endocrinology 10/17/22 Meron Gurrola, RN [place] Nurse Pulp Tester 01/09/24 01/15/24 Meron Gurrola, RN [place] Nurse Pulp Tester 11/26/24 12/08/24 documented as of this encounter
--- OUTSIDE RECORDS SUMMARY | 2025-05-25 13:46 | XMS_ITS | Encounter Summary ---
Author Organization [facility] Address [address] [place] [address] Phone Care Team Providers Care Custom Clothier Name Role Phone Ariel Lua Nikhil DPM Unavailable [phone] Aisha Medina APRN, MACHINE CERAMIC COATER Primary Care Prov ider Juanjo Mclaughlin MD Unavailable Rita Lynne MD Unavailable Meron Gurrola RN Unavailable Unavailable Meron Gurrola RN Unavailable Unavailable Reason for Visit * Reason Comments Medication Refill Encounter Details Date Type Department Care Team (Late st Contact Info) Description 11/23/2020 Refill [facility] Medical Group - Family Medicine [facility] #2 [place] [address] Aisha Medina APRN, MACHINE CERAMIC COATER #[address] [address] Medication Refill Social History Tobacco [...] Telephone Encounter - Jade Vega RN - 11/24/2020 1:26 PM CDT Medication [...] with stage 4 chronic kidney disease (HCC) [facility], MACHINE CERAMIC COATER 1 year ago 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[facility] MACHINE CERAMIC COATER 1 year ago Chest congestion [facility] PAC 1 year ago 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) [facility] VICE PRESIDENT FIXED INCOME, MACHINE CERAMIC COATER 1 year ago Penile lesion [facility] Gonzales, ÁNGEL Upcoming Appointments Future Appointments In 3 weeks Rita Lynne MD [facility] Endocrinology - [facility], [facility] LAUNDRY WASHER - Recent and Past Visits Recent Visits Date Type Provider Dept 05/12/20 Office Visit Aisha Medina APN, CNP [facility] 11/01/19 Telemedicine Aisha Medina APN, CNP [facility] Showing recent visits within past 460 days with a meds authorizing provider and meeting all other requirements Future Appointments No visits were found meeting these conditions. Showing future appointments within next 90 days with a meds authorizing provider and meeting all other requirements * Telephone Encounter - Kenya Dumont RN - 11/24/2020 11:39 AM CDT Pharmacy is calling about sildenafil refill. Asking if this can be approved as they will be closed due to the holiday. documented in this encounter Plan of Treatment Upcoming Encounters Date Type Department Care Team (Late st Contact Info) Description 06/02/2025 9:45 AM JACKHAMMER SPLITTER OPERATOR Office Visit [facility] Medical Group - Family Medicine [facility] #2 [place] [address] Aisha Medina APRN, MACHINE CERAMIC COATER #[address] [phone] documented as of this encounter Visit Diagnoses Not on filedocumented in this encounter Additional Health Concerns Assessment Noted Time PHQ-9 Depression Total Score: 0 07/01/19 20 11:36 AM JACKHAMMER SPLITTER OPERATOR documented as of this encounter Care Teams Custom Clothier Relationship Specialty Start Date End Date Aisha Medina APRN, MACHINE CERAMIC COATER #[address] [address] PCP - General Advanced Practice Nurse 07/17/18 Ariel Lua DPM Consulting Physician Podiatry 12/02/16 Juanjo Mclaughlin MD [address] [place] [address] Consulting Physician Oncology 12/01/19 Rita Lynne MD #[address] [phone] Consulting Physician Endocrinology 10/17/22 Meron Gurrola RN [place] Nurse Supervisor Mapping 01/09/24 01/15/24 Meron Gurrola RN [place] Nurse Supervisor Mapping 11/26/24 12/08/24 documented as of this encounter
--- OUTSIDE RECORDS SUMMARY | 2025-05-25 13:46 | XMS_ITS | Encounter Summary ---
Author Organization [facility] Address [address] [place] [address] Phone Care Team Providers Care Sludge Filtration Operator Name Role Phone Unavailable Primary Care Provider Unavailabl e Reason for Visit * Reason Comments Med Refill Encounter Details Date Type Department Care Team ([facility] st Contact Info) Description 07/25/2022 Refill [facility]. [address] [place] [address] Chip Rivera MD [address] [place] [address] Social History Tobacco Use Types Packs/Day Years Used Date Smoking Tobacco: Never Alcohol Use Standard Drinks/Week Comments Yes 0 (1 standard drink = 0.6 oz pure alcohol) Alcoholic Drinks/day: Occasional social drink Sex and Gender Information Value Date Recorded Sex Assigned at Not on file Legal Sex Male 2:50 PM EDT Gender Identity Not on file Sexual Orientation Not on file documented as of this encounter Plan of Treatment Not on file documented as of this encounter Visit Diagnoses Not on filedocumented in this encounter
--- OUTSIDE RECORDS SUMMARY | 2025-05-25 13:46 | XMS_ITS | Encounter Summary ---
Author Organization [facility] Address [address] [place] [address] Phone Care Team Providers Care Emergency Generator Mechanic Name Role Phone Aisha Medina NP Primary Care Provider + Encounter Details Date Type Department Care Team (Late st Contact Info) Description 07/20/2020 Ophth Exam [facility] Medicine Ophthalmology [address] [place] [address] [place] [id number] Arnie Neal MD [address] [facility] [address] [place] [address] Social History Tobacco Use Types Packs/Day Years Used Date Smoking Tobacco: Never Smokeless Tobacco: Never Alcohol Use Standard Drinks/Week Comments Yes 0 (1 standard drink = 0.6 oz pur e alcohol) less than 1x/month Sex and Gender Information Value Date Recorded Sex Assigned at Not on file 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 Gender Identity Not on file Sexual Orientation Not on file documented as of this encounter Functional Status * Fall Risk Assessment Tool - MEDFRAT Question Answer Date of Assessment Author History of falling in last 3 months, including since admission 0 07/20/2020 5:59 PM Jemima Garcia RN Confusion or disorientation 0 07/20/2020 5: 59 PM Jemima Garcia RN Intoxicated or sedated 0 07/20/2020 5:59 PM Jemima Garcia RN Impaired gait 0 07/20/2020 5:59 PM Jemima Gross RN Mobility assist device used 0 07/20/2020 5: 59 PM Jemima Garcia RN Altered elimination 0 07/20/2020 5:59 PM CS T Jemima Sanderson RN Fall risk score: (1-2 low ri sk), (3-4 moderate risk), (5 or more high risk) 0 07/20/2020 5:59 PM Jemima Garcia RN documented as of this encounter Plan of [...] reactive, no NVI Lens Clear Clear Vitreous Grafton's sign, suspe nded heme w/o large collections [...] heme, attached 360 w/o RD/RT Care Teams Emergency Generator Mechanic Relationship Specialty Start Date End Date Aisha Medina NP [address] [address] PCP - General 06/03/19 documented as of this encounter
--- OUTSIDE RECORDS SUMMARY | 2025-05-25 13:46 | XMS_ITS | Encounter Summary ---
Author Organization [facility] Address [address] [place] [address] Phone Care Team Providers Care Ware Carrier Name Role Phone Ariel Lua DPM Unavailable [phone] Aisha Medina APRN, MACHINED PARTS METAL SPRAYER Primary Care Prov ider Juanjo Mclaughlin MD Unavailable Rita Lynne MD Unavailable Meron Gurrola RN Unavailable Unavailable Meron Gurrola RN Unavailable Unavailable Reason for Visit * Reason Comments Medication Refill Encounter Details Date Type Department Care Team (Late st Contact Info) Description 09/02/2020 Refill [facility] [address] [place] [address] Aisha Medina APRN, MACHINED PARTS METAL SPRAYER [address] [address] Medication Refill Social History Tobacco [...] was received - refused as duplicate request. CAR DISPATCHER documented in this encounter Plan of Treatment Upcoming Encounters Date Type Department Care Team (Late st Contact Info) Description 06/02/2025 9:45 AM MINE CAR DISPATCHER Office Visit [facility] - Family Medicine [facility] [address] [place] [phone] Aisha Medina APRN, MACHINED PARTS METAL SPRAYER [address] [phone] documented as of this encounter Visit Diagnoses Diagnosis Hypertension, unspecified type Hyperlipidemia, unspecified hyperlipidemia type documented in this encounter Additional Health Concerns Assessment Noted Time PHQ-9 Depression Total Score: 0 07/01/19 20 11:36 AM MINE CAR DISPATCHER documented as of this encounter Care Teams Ware Carrier Relationship Specialty Start Date End Date Aisha Medina APRN, MACHINED PARTS METAL SPRAYER #[address] [phone] PCP - General Advanced Practice Nurse 07/17/18 Ariel Lua DPM Consulting Physician Podiatry 12/02/16 Juanjo Mclaughlin MD [address] [place] [phone] Consulting Physician Oncology 12/01/19 Rita Lynne MD #[address] [phone] Consulting Physician Endocrinology 10/17/22 Meron Gurrola RN [place] Nurse Spout Liner Helper 01/09/24 01/15/24 Meron Gurrola RN [place] Nurse Spout Liner Helper 11/26/24 12/08/24 documented as of this encounter
--- OUTSIDE RECORDS SUMMARY | 2025-05-25 13:46 | XMS_ITS | Encounter Summary ---
Author Organization [facility] Address [address] [place] [address] Phone Care Team Providers Care Esl Tutor Name Role Phone Ariel Lua Nikhil DPM Unavailable [phone] Aisha Medina APRN, ATTENDING PSYCHIATRIST Primary Care Prov ider Juanjo Mclaughlin MD Unavailable Rita Lynne MD Unavailable Meron Gurrola RN Unavailable Unavailable Meron Gurrola RN Unavailable Unavailable Reason for Visit * Reason Comments Medication Refill Encounter Details Date Type Department Care Team (Late st Contact Info) Description 11/21/2020 [facility]ill [facility] [address] [place] [address] Rita Lynne MD #[address] [address] Medication Refill Social History Tobacco [...] st Contact Info) Description 06/02/2025 9:45 AM EDUCATION PROGRAM COORDINATOR Office Visit [facility] - Family Medicine - [place] [address] [place] [phone] Aisha Medina APRN, ATTENDING PSYCHIATRIST [address] [phone] documented as of this encounter Visit Diagnoses Not on filedocumented in this encounter Additional Health Concerns Assessment Noted Time PHQ-9 Depression Total Score: 0 07/01/19 20 11:36 AM EDUCATION PROGRAM COORDINATOR documented as of this encounter Care Teams Esl Tutor Relationship Specialty Start Date End Date Aisha Medina APRN, ATTENDING PSYCHIATRIST [address] [phone] PCP - General Advanced Practice Nurse 07/17/18 Ariel Lua DPM Consulting Physician Podiatry 12/02/16 Juanjo Mclaughlin MD [address] [place] [address] Consulting Physician Oncology 12/01/19 Rita Lynne MD #[address] [address] Consulting Physician Endocrinology 10/17/22 Meron Gurrola RN [place] Nurse Floor Assembler 01/09/24 01/15/24 Meron Gurrola RN [place] Nurse Floor Assembler 11/26/24 12/08/24 documented as of this encounter
--- OUTSIDE RECORDS SUMMARY | 2025-05-25 13:46 | XMS_ITS | Encounter Summary ---
Author Organization [facility] Address [address] [place] [address] Phone Care Team Providers Care Wood Milling Machine Operator Name Role Phone ChanellAriel DPM Unavailable [phone] Aisha Medina APRN, CLERICAL ADJUDICATOR Primary Care Prov ider Juanjo Mclaughlin MD Unavailable Rita Lynne MD Unavailable Meron Grurola RN Unavailable Unavailable Reason for Visit * Reason Comments Medication Refill Encounter Details Date Type Department Care Team (Late st Contact Info) Description 09/10/2024 Refill [facility] [address] [place] [address] Sukumar Mulligan MD #[address] [address] Medication Refill Social History Tobacco Use Types [...] 09/10/2024 11:48 AM CDT Aisha Medina APRN, CLERICAL ADJUDICATOR to [place] Nurse Pool Regarding result: LORazepam (ATIVAN) 1 MG Tablet [Pharmacy Med Name: LORAZEPAM 1MG TABLETS] 09/10/24 10:48 AM Needs OV * Telephone Encounter - Jade Vega RN - 09/10/2024 9:58 AM CDT Images from the original note were not included. LORazepam Dispensed Days Supply Quantity Provider Pharmacy LORAZEPAM 1MG TABLETS 08/02/2024 30 60 Each Sukumar Mulligan MD [facility] #.. Medication failed the protocol, [...] st Contact Info) Description 06/02/2025 9:45 AM DEAN Office Visit [facility] - Family Medicine [facility] [address] [place] [address] Aisha Medina APRN, CLERICAL ADJUDICATOR [address] [facility] [address] [place] [address] documented as of this encounter Visit Diagnoses Diagnosis Anxiety Anxiety state, unspecified documented in this encounter Additional Health Concerns Assessment Noted Time PHQ-9 Depression Total Score: 0 07/07/19 24 2:00 PM DEAN documented as of this encounter Care Teams Wood Milling Machine Operator Relationship Specialty Start Date End Date Aisha Medina APRN, CLERICAL ADJUDICATOR [address] [facility] [address] [place] [address] PCP - General Advanced Practice Nurse 07/17/18 Ariel Lua DPM Consulting Physician Podiatry 12/02/16 Juanjo Mclaughlin MD [address] [place] [address] Consulting Physician Oncology 12/01/19 Rita Lynne MD #[address] [phone] Consulting Physician Endocrinology 10/17/22 Meron Gurrola, RN [place] Nurse Statistical Machine Mechanic 11/26/24 12/08/24 documented as of this encounter
--- OUTSIDE RECORDS SUMMARY | 2025-05-25 13:46 | XMS_ITS | Encounter Summary ---
Author Organization [facility] Address [address] [place] [address] Phone Care Team Providers Care Commercial Development Manager Name Role Phone Ariel Lua Nikhil DPM Unavailable [phone] Aisha Medina APRN, ENVIRONMENTAL PROFESSIONAL Primary Care Prov ider Juanjo Mclaughlin MD Unavailable Rita Lynne MD Unavailable Meron Gurrola RN Unavailable Unavailable Meron Gurrola RN Unavailable Unavailable Reason for Visit * Reason Comments Medication Refill Encounter Details Date Type Department Care Team (Late st Contact Info) Description 06/17/2023 Refill [facility] [address] [place] [address] Aisha Medina APRN, ENVIRONMENTAL PROFESSIONAL [address] [address] Medication Refill Social History [...] Provider Dept 07/01/23 Appointment Aisha Medina APRN, ENVIRONMENTAL PROFESSIONAL [facility] Showing future appointments within next 90 days [...] Provider Dept 07/01/23 Appointment Aisha Medina APRN, ENVIRONMENTAL PROFESSIONAL [facility] Show[facility] future appointments within next 90 days and meeting all other requirements ORK SERVICES PROJECT MANAGER documented in this encounter Plan of Treatment Upcoming Encounters Date Type Department Care Team (Late st Contact Info) Description 06/02/2025 9:45 AM NETWORK SERVICES PROJECT MANAGER Office Visit [facility] - Family Medicine - [place] [address] [place] [address] Aisha Medina APRN, ENVIRONMENTAL PROFESSIONAL [address] [address] documented as of this encounter Visit Diagnoses [...] documented as of this encounter Care Teams Commercial Development Manager Relationship Specialty Start Date End Date Aisha Medina APRN, ENVIRONMENTAL PROFESSIONAL #[address] [phone] PCP - General Advanced Practice Nurse 07/17/18 Ariel Lua DPM Consulting Physician Podiatry 12/02/16 Juanjo Mclaughlin MD [address] [place] [address] Consulting Physician Oncology 12/01/19 Rita Lynne MD #[address] [phone] Consulting Physician Endocrinology 10/17/22 Meron Gurrola, ZEINAB [place] Nurse Animal Biologist 01/09/24 01/15/24 Meron Gurrola RN [place] Nurse Animal Biologist 11/26/24 12/08/24 documented as of this encounter
--- OUTSIDE RECORDS SUMMARY | 2025-05-25 13:46 | XMS_ITS | Clinical Summary ---
Author Organization [facility] [employer] Address [address] [place] [address] Care Team Providers Care Graphic Specialist Name Role Phone Rita Lynne MD Unavailable Martha Worrell MD Unavailable [phone] Aisha Medina JET WIPER[employer]KER Primary Care Provide r Source Comments [facility],non-owned Affiliates and Associated Physician Practices is amultiple site organization consisting of ambulatory clinics and hospital sitesin [place], [place], [place] and [place]. This disclosure is being madepursuant to the Care Everywhere program and may not contain all information available regarding this patient. Last updated 18.[facility] [employer] Allergies Active Allergy Reactions Criticality Noted Date Comments Live Vaccines (Immunodeficiency) Other immunosuppression Medications * Be aware that medications may not be up to date on this document. Alwaysverify current medications with the patient. ONETOUCH VERIO test strip 021 Active blood glucose (ONETOUCH VERIO) test strip USE TO TEST BLOOD SUGAR FOUR TIMES A DAY 021 Active TRUEplus Lancets 30G MISC 022 Active acetaminophen (Tylenol) 325 MG tablet Take 2 (two) tablets by mouth every 4 hours as needed for Pain Maximum allowable Acetaminophen amount = 4 Grams (4000 mg) / 24 hours. 3 024 Active Insulin Pen Needle (Pentips) 32G X 4 MM MISC USE ONE PEN NEEDLE 4 TIMES DAILY FOR INJECTIONS 100 Each 06/17/20 24 2:20 PM SEGMENT PRODUCER Active sodium zirconium cyclosilicate (Lokelma) 10 g packet Take 1 (one) packet by mouth once daily 30 packet 11 Active Additional Information Patient not taking.Reason: Provider adjusted, Reported on 04/20/2025 predniSONE (Deltasone) 5 MG tablet Take 1 (one) tablet by mouth once daily 30 tablet 11 Active pantoprazole EC (Protonix) 40 MG tablet Take 1 (one) tablet by mouth once daily 30 tablet 11 025 Active rosuvastatin (Crestor) 20 MG tablet Take 1 (one) tablet by mouth at bedtime 30 tablet 025 Active carvedilol (Coreg) 12.5 MG tablet Take 1 (one) tablet by mouth 2 times daily with morning and evening meal 60 tablet 025 Active cinacalcet (Sensipar) 30 MG tablet Take 1 (one) tablet by mouth 2 times daily with morning and evening meal 60 tablet 025 Active allopurinol (Zyloprim) 100 MG tablet Take 1 (one) tablet by mouth once daily 30 tablet 025 Active hydroCHLOROthiaz jerad (Hydrodiuril) 25 MG tablet Take 1 (one) tablet by mouth once daily 90 tablet 3 025 Active rivaroxaban (Xarelto) 2.5 MG TABS tablet Take 1 (one) tablet by mouth 2 times daily 60 tablet 025 Active amLODIPine (Norvasc) 2.5 MG tabletIndication s:Primary hypertension,Typ e 1 diabetes mellitus with other specified complication (HCC),Kidney transplant recipient (HCC),Neuropathy ,At risk for rejection of transplanted organ,Superficia l femoral artery occlusion,Hyperc holesteremia Take 1 (one) tablet by mouth once daily 90 tablet 3 025 Active tadalafil (Cialis) 20 MG tablet Take 1 (one) tablet by mouth every 72 hours as needed (before sex for a better erection) Take half dose at first. Don't take with blood pressure medicines. 10 tablet 5 025 Active mycophenolate (Myfortic) [address] tablet TAKE 1 TABLET BY MOUTH TWICE DAILY 60 tablet 11 025 Active aspirin (Aspirin) 81 MG chew tablet CHEW AND SWALLOW 1 TABLET BY MOUTH DAILY 30 tablet 3 025 Active sodium bicarbonate 650 MG tablet TAKE 2 TABLETS BY MOUTH TWICE DAILY 60 tablet 11 025 Active LORazepam (Ativan) 1 MG tablet Take 1 (one) tablet by mouth Active Insulin Disposable Pump (Omnipod 5 [id number] Pods Gen 5) MISC CHANGE POD EVERY 3 DAYS Active gabapentin (Neurontin) 300 MG capsule TAKE 1 CAPSULE BY MOUTH THREE TIMES DAILY 90 capsule 3 025 Active oxyCODONE, immediate release, (Roxicodone) 5 MG tabletIndication s:Post-op pain Take 1 (one) tablet by mouth every 4 hours as needed 12 tablet Active Additional Information Patient not taking.Reason: Patient adjusted (NOT NEEDED), Reported on 04/20/2025 metoclopramide (Reglan) 5 MG tablet TAKE 1 TABLET BY MOUTH EVERY 6 HOURS NEEDED FOR NAUSEA OR VOMITING 30 tablet 3 Active tacrolimus ER 24hr (Envarsus XR) 1 MG tabletIndication s:Kidney transplant recipient (HCC),Type 1 diabetes mellitus with other specified complication (HCC),At risk for rejection of transplanted organ,Primary hypertension,Vit hoskins D deficiency Take 1 (one) tablet by mouth once daily Swallow whole. Do not crush or chew tablets. 30 tablet 11 025 Active vitamin D3 (Cholecalciferol ) 25 MCG (1000 UNITS) tabletIndication s:Kidney transplant recipient (HCC),Type 1 diabetes mellitus with other specified complication (HCC),At risk for rejection of transplanted organ,Primary hypertension,Vit hoskins D deficiency Take 2 (two) tablets by mouth once daily 60 tablet 11 025 Active tacrolimus ER 24hr (Envarsus XR) 0.75 MG tablet Take 2 (two) tablets by mouth once daily Swallow whole. Do not crush or chew tablets. 60 tablet 11 025 Active rOPINIRole (Requip) 1 MG tablet Take 1 (one) tablet by mouth at bedtime 30 tablet 3 025 Active rOPINIRole (Requip) 1 MG tablet TAKE 1 TABLET BY MOUTH AT BEDTIME 30 tablet 3 025 2024 Discontinued(R eorder) tacrolimus ER 24hr (Envarsus XR) 1 MG tablet Take 3 (three) tablets by mouth once daily Swallow whole. Do not crush or chew tablets. 60 tablet 11 025 2024 Discontinued tacrolimus ER 24hr (Envarsus XR) 0.75 MG tabletIndication s:Kidney transplant recipient (HCC),Type 1 diabetes mellitus with other specified complication (HCC),At risk for rejection of transplanted organ,Primary hypertension,Vit hoskins D deficiency Take 2 (two) tablets by mouth once daily Swallow whole. Do not crush or chew tablets. 60 tablet 11 025 2024 Discontinued(D ose Adjustment) Active Problems Problem Noted Date Diagnosed Date Hypoxia 03/25/2025 Assessment & Plan (03/27/2025 1:49 PM CDT): - Vascular following s/p 03/23 for right femoral to popliteal bypass with graft Plan: - continue on aspirin 81 mg qd, coreg 12.5 mg BID, and home xarelto 2.5 mg BID Continue conservative pain management. Q4h vascular checks - Daily CBC, CMP, Mag, Phos. - wean O2 as tolerated Assessment & Plan (03/26/2025 2:02 PM CDT): - Vascular following s/p 03/23 for right femoral to popliteal bypass with graft Plan: - continue on aspirin 81 mg qd, coreg 12.5 mg BID, and home xarelto 2.5 mg BID - Dilaudid q3h orbm oxy ordered. Deescalate as appropriate. conservative pain management. Q4h vascular checks - Daily CBC, CMP, Mag, Phos. - wean O2 as tolerated Assessment & Plan (03/25/2025 8:28 PM CDT): - Vascular following s/p 03/23 for right femoral to popliteal bypass with graft - continue on aspirin 81 mg qd, coreg 12.5 mg BID, and home xarelto 2.5 mg BID - Dilaudid q3h orbm oxy ordered. Deescalate as appropriate. conservative pain management. Q4h vascular checks - Daily CBC, CMP, Mag, Phos. - wean O2 as tolerated Type 1 diabetes mellitus wit h diabetic chronic kidney disease 03/23/2025 Assessment & Plan (03/27/2025 1:49 PM CDT): - Pump replaced 03/21, normally lasts 3 days, resume on 03/26/25 Appreciate endocrinology recommendations Plan: - continue accucheck tid, continue insulin pump - Hypoglycemic protocols Assessment & Plan (03/26/2025 2:02 PM CDT): - Pump replaced 03/21, normally lasts 3 days, resume on 03/26/25 Appreciate endocrinology recommendations Plan: - continue accucheck tid, continue insulin pump - Hypoglycemic protocols Assessment & Plan (03/25/2025 8:28 PM CDT): - Pump replaced 03/21, normally lasts 3 days, currently on hold. Appreciate endocrinology recommendations. - continue on basal bolus with lantus 34 U qday, novolog 6 U AC - Glucose measurement Q6 - Hypoglycemic protocols. Assessment & Plan (03/23/2025 4:45 AM CDT): - On insulin pump - Pump replaced 03/21, normally lasts 3 days - Consult to Endocrinology in AM - D5LR 100mL/hr started. - Glucose measurement Q6 - Hypoglycemic protocols. Primary hypertension 03/23/2025 Assessment & Plan (03/27/2025 1:49 PM CDT): Plan: - Continue amlodipine 2.5 po daily, coreg 12.5 bid po daily, HTCZ 25 mg po daily Assessment & Plan (03/26/2025 2:02 PM CDT): Plan: - Continue amlodipine 2.5 po daily, coreg 12.5 bid po daily, HTCZ 25 mg po daily Assessment & Plan (03/25/2025 8:28 PM CDT): - Continue amlodipine - hold HCTZ, coreg before procedure. Assessment & Plan (03/23/2025 4:45 AM CDT): - Continue amlodipine - hold HCTZ, coreg before procedure. Dyslipidemia 03/23/2025 Assessment & Plan (03/27/2025 1:49 PM CDT): Plan: - Continue rosuvastatin 20 mg po daily Assessment & Plan (03/26/2025 2:02 PM CDT): Plan: - Continue rosuvastatin 20 mg po daily Assessment & Plan (03/25/2025 8:28 PM CDT): - Contine rosuvastatin Assessment & Plan (03/23/2025 4:45 AM CDT): - Contine rosuvastatin Kidney transplant recipient 03/23/2025 Assessment & Plan (03/27/2025 1:49 PM CDT): - transplanted 05/2024 - Cr 1.63; at baseline, worsening on 03/26/25 with creat 1.93 Plan: - nephrology following, appr help - Continue cinacalcet 30 mg bid , sodium bicarb 1300 bid - continue prednisone 5 mg po daily, mycophenolate 180 mg bid po daily -Tacrolimus level 2.6 today,( goal- 5-8) dose increase to 3 mg po on 03/27 and continue upon discharge -Hold lokelma upon discharge Assessment & Plan (03/26/2025 2:02 PM CDT): - transplanted 05/2024 - Cr 1.63; at baseline, worsening on 03/26/25 with creat 1.93 Plan: - nephrology following, appr help - Continue cinacalcet 30 mg bid , sodium bicarb 1300 bid lokelma 10 mg po daily - continue prednisone 5 mg po daily, mycophenolate 180 mg bid po daily -Tacrolimus level 2.6 today,( goal- 5-8) dose increase to 3 mg po daily Assessment & Plan (03/25/2025 8:28 PM CDT): - transplanted 05/2024 - Continue cinacalcet, sodium bicarb, lokelma - continue prednisone, tacrolimus, mycophenolate - Nephrology consulted - Cr 1.63; at baseline. Assessment & Plan (03/23/2025 4:45 AM CDT): - transplanted 05/2024 - Continue cinacalcet, sodium bicarb, lokelma - continue prednisone, tacrolimus, mycophenolate - Nephrology consulted - Cr 1.63; at baseline. Restless leg syndrome 03/23/2025 Assessment & Plan (03/27/2025 1:49 PM CDT): Plan: - Continue Ropinirole 1 mg at bedtime and gabapentin 300 mg tid po daily -resume home ativan Assessment & Plan (03/26/2025 2:02 PM CDT): Plan: - Continue Ropinirole 1 mg at bedtime and gabapentin 300 mg tid po daily - holding home ativan qd. Can look to reevaluate in AM Assessment & Plan (03/25/2025 8:28 PM CDT): - Continue Ropinirole and gabapentin. - holding home ativan qd. Can look to reevaluate in AM Assessment & Plan (03/23/2025 4:45 AM CDT): - Continue Ropinirole and gabapentin. S/P femoral-popliteal bypass surgery 03/23/2025 Assessment & Plan (03/27/2025 1:49 PM CDT): - Vascular following s/p 03/23 for right femoral to popliteal bypass with graft Plan: - continue on aspirin 81 mg qd, coreg 12.5 mg BID, and home xarelto 2.5 mg BID Continue conservative pain management. Q4h vascular checks - Daily CBC, CMP, Mag, Phos. - wean O2 as tolerated Assessment & Plan (03/26/2025 2:02 PM CDT): - Vascular following s/p 03/23 for right femoral to popliteal bypass with graft Plan: - continue on aspirin 81 mg qd, coreg 12.5 mg BID, and home xarelto 2.5 mg BID - Dilaudid q3h orbm oxy ordered. Deescalate as appropriate. conservative pain management. Q4h vascular checks - Daily CBC, CMP, Mag, Phos. - wean O2 as tolerated Assessment & Plan (03/25/2025 8:28 PM CDT): - Vascular following s/p 03/23 for right femoral to popliteal bypass with graft - continue on aspirin 81 mg qd, coreg 12.5 mg BID, and home xarelto 2.5 mg BID - Dilaudid q3h orbm oxy ordered. Deescalate as appropriate. conservative pain management. Q4h vascular checks - Daily CBC, CMP, Mag, Phos. - wean O2 as tolerated GERD (gastroesophageal reflux disease) Assessment & Plan (03/27/2025 1:49 PM CDT): - Plan: continue protonix 40 mg po daily Assessment & Plan (03/26/2025 2:02 PM CDT): - Plan: continue protonix 40 mg po daily Assessment & Plan (03/25/2025 8:28 PM CDT): - protinix Gout 03/23/2025 Assessment & Plan (03/27/2025 1:49 PM CDT): - transplanted 05/2024 - Cr 1.63; at baseline, worsening on 03/26/25 with creat 1.93 Plan: - nephrology following, appr help - Continue cinacalcet 30 mg bid , sodium bicarb 1300 bid - continue prednisone 5 mg po daily, mycophenolate 180 mg bid po daily -Tacrolimus level 2.6 today,( goal- 5-8) dose increase to 3 mg po on 03/27 and continue upon discharge -Hold lokelma upon discharge Assessment & Plan (03/26/2025 2:02 PM CDT): - transplanted 05/2024 - Cr 1.63; at baseline, worsening on 03/26/25 with creat 1.93 Plan: - nephrology following, appr help - Continue cinacalcet 30 mg bid , sodium bicarb 1300 bid lokelma 10 mg po daily - continue prednisone 5 mg po daily, mycophenolate 180 mg bid po daily -Tacrolimus level 2.6 today,( goal- 5-8) dose increase to 3 mg po daily Assessment & Plan (03/25/2025 8:28 PM CDT): - transplanted 05/2024 - Continue cinacalcet, sodium bicarb, lokelma - continue prednisone, tacrolimus, mycophenolate - Nephrology consulted - Cr 1.63; at baseline. PAD (peripheral artery disease) 03/22/2025 Assessment & Plan (03/27/2025 1:49 PM CDT): - Vascular following s/p 03/23 for right femoral to popliteal bypass with graft Plan: - continue on aspirin 81 mg qd, coreg 12.5 mg BID, and home xarelto 2.5 mg BID Continue conservative pain management. Q4h vascular checks - Daily CBC, CMP, Mag, Phos. - wean O2 as tolerated Assessment & Plan (03/26/2025 2:02 PM CDT): - Vascular following s/p 03/23 for right femoral to popliteal bypass with graft Plan: - continue on aspirin 81 mg qd, coreg 12.5 mg BID, and home xarelto 2.5 mg BID - Dilaudid q3h orbm oxy ordered. Deescalate as appropriate. conservative pain management. Q4h vascular checks - Daily CBC, CMP, Mag, Phos. - wean O2 as tolerated Assessment & Plan (03/25/2025 8:28 PM CDT): - Vascular following s/p 03/23 for right femoral to popliteal bypass with graft - continue on aspirin 81 mg qd, coreg 12.5 mg BID, and home xarelto 2.5 mg BID - Dilaudid q3h orbm oxy ordered. Deescalate as appropriate. conservative pain management. Q4h vascular checks - Daily CBC, CMP, Mag, Phos. - wean O2 as tolerated Assessment & Plan (03/23/2025 4:45 AM CDT): - Vascular following. - NPO for vascular procedure. - D5LR 100mL/hr started. - plan for OR on 03/23 for right femoral to popliteal bypass with graft - Holding ASA and xarelto - Dilaudid PRN Q4. - Daily CBC, CMP, Mag, Phos. Claudication of right lower extremity 03/22/2025 Assessment & Plan (03/27/2025 1:49 PM CDT): - Vascular following s/p 03/23 for right femoral to popliteal bypass with graft Plan: - continue on aspirin 81 mg qd, coreg 12.5 mg BID, and home xarelto 2.5 mg BID Continue conservative pain management. Q4h vascular checks - Daily CBC, CMP, Mag, Phos. - wean O2 as tolerated Assessment & Plan (03/26/2025 2:02 PM CDT): - Vascular following s/p 03/23 for right femoral to popliteal bypass with graft Plan: - continue on aspirin 81 mg qd, coreg 12.5 mg BID, and home xarelto 2.5 mg BID - Dilaudid q3h orbm oxy ordered. Deescalate as appropriate. conservative pain management. Q4h vascular checks - Daily CBC, CMP, Mag, Phos. - wean O2 as tolerated Assessment & Plan (03/25/2025 8:28 PM CDT): - Vascular following s/p 03/23 for right femoral to popliteal bypass with graft - continue on aspirin 81 mg qd, coreg 12.5 mg BID, and home xarelto 2.5 mg BID - Dilaudid q3h orbm oxy ordered. Deescalate as appropriate. conservative pain management. Q4h vascular checks - Daily CBC, CMP, Mag, Phos. - wean O2 as tolerated Assessment & Plan (03/23/2025 4:45 AM CDT): - Vascular following. - NPO for vascular procedure. - D5LR 100mL/hr started. - plan for OR on 03/23 for right femoral to popliteal bypass with graft - Holding ASA and xarelto - Dilaudid PRN Q4. - Daily CBC, CMP, Mag, Phos. Peripheral arterial disease 03/17/2025 Assessment & Plan (03/18/2025 2:24 PM CDT): - prox SFA occlusion, planning repeat intervention 03/2025 Assessment & Plan (03/17/2025 8:51 PM CDT): - NPO MN - IVF (NS) - RLE CO2 angiogram tomorrow w/possible stent placement with Vascular - Holding home Xarelto for angiogram tomorrow Malignant neoplasm of left testis 09/02/2024 Cancer Staging:Pathologic: pT2, cN1, cM0, SX - Signed by Nancy Domingo MD on 09/02/2024 Assessment & Plan (03/27/2025 1:49 PM CDT): - transplanted 05/2024 - Cr 1.63; at baseline, worsening on 03/26/25 with creat 1.93 Plan: - nephrology following, appr help - Continue cinacalcet 30 mg bid , sodium bicarb 1300 bid - continue prednisone 5 mg po daily, mycophenolate 180 mg bid po daily -Tacrolimus level 2.6 today,( goal- 5-8) dose increase to 3 mg po on 03/27 and continue upon discharge -Hold lokelma upon discharge Assessment & Plan (03/26/2025 2:02 PM CDT): - transplanted 05/2024 - Cr 1.63; at baseline, worsening on 03/26/25 with creat 1.93 Plan: - nephrology following, appr help - Continue cinacalcet 30 mg bid , sodium bicarb 1300 bid lokelma 10 mg po daily - continue prednisone 5 mg po daily, mycophenolate 180 mg bid po daily -Tacrolimus level 2.6 today,( goal- 5-8) dose increase to 3 mg po daily Assessment & Plan (03/25/2025 8:28 PM CDT): - transplanted 05/2024 - Continue cinacalcet, sodium bicarb, lokelma - continue prednisone, tacrolimus, mycophenolate - Nephrology consulted - Cr 1.63; at baseline. Type 1 diabetes mellitus with other kidney compl ication 08/18/2024 Assessment & Plan (03/18/2025 2:24 PM CDT): - home insulin pump: basal 1.25u/hr MN, 1.5u/hr 0300, 1.15u/hr 0700, 1.25u/hr 1900 - resume home insulin pump at home Assessment & Plan (03/17/2025 8:51 PM CDT): - home insulin pump: basal 1.25u/hr MN, 1.5u/hr 0300, 1.15u/hr 0700, 1.25u/hr 1900 - current: DC insulin pump, 15u Lantus, SSI TIDAC - glucose checks q4 hrs Superficial femoral artery occlusion 08/18/2024 At risk for rejection of transplanted organ 07/31 Kidney transplant recipient 06/13/24 06/11/2024 Overview (03/28/2025): .Referring Physician: Dr Juan Manuel Rivera Transplant Date: 06/13/2025 Donor: [facility] ID: [id number] Match ID: [id number] Criteria: DBD KDPI: 25 CMV D+/R- EBV [...] with Dr Edwards and tolerated the procedure. 03/17-03/18/25 status post DD KT, PAD s/p RLE fem pop bypass with cryovein (07/2024) presented as scheduled admit for right lower extremity angiography. Angiography notable for occluded bypass with patent proximal SFA. His home insulin pump was held during his hospital course and had notable hyperglycemia. Endocrinology followed and stated he would be safe to return home today with plan to resume his normal insulin pump therapy. Discharged in stable condition with plan for repeat vascular intervention 03/22-03/27/25 underwent revision of the right femoral to popliteal artery bypass with polytetrafluoroethylene graft and application of a wound vacuum device on 03/23/2025. Due to increasing pain went to ER. Intraoperative findings included a well-incorporated but occluded prior graft, and cultures were taken from the graft due to his transplant status; no organisms were identified on preliminary results. Postoperatively, he was monitored in the ICU with frequent neurovascular checks, and transitioned to the floor once stable. Biopsies: Stent Removal scheduled: 07/27 Removed: 07/30 PD Catheter Removed:07/30 [facility] required risk labs ordered for draw 28-56 days post txp. Due: 07/12 - 08/09/24 07/15/23 Non-Reactive for HIV RNA Non-Reactive for HCV RNA Non-Reactive for HBV DNA Test performed with [employer] Elite Assay Kit. Assessment & Plan (03/27/2025 1:49 PM CDT): - transplanted 05/2024 - Cr 1.63; at baseline, worsening on 03/26/25 with creat 1.93 Plan: - nephrology following, appr help - Continue cinacalcet 30 mg bid , sodium bicarb 1300 bid - continue prednisone 5 mg po daily, mycophenolate 180 mg bid po daily -Tacrolimus level 2.6 today,( goal- 5-8) dose increase to 3 mg po on 03/27 and continue upon discharge -Hold lokelma upon discharge Assessment & Plan (03/26/2025 2:02 PM CDT): - transplanted 05/2024 - Cr 1.63; at baseline, worsening on 03/26/25 with creat 1.93 Plan: - nephrology following, appr help - Continue cinacalcet 30 mg bid , sodium bicarb 1300 bid lokelma 10 mg po daily - continue prednisone 5 mg po daily, mycophenolate 180 mg bid po daily -Tacrolimus level 2.6 today,( goal- 5-8) dose increase to 3 mg po daily Assessment & Plan (03/25/2025 8:28 PM CDT): - transplanted 05/2024 - Continue cinacalcet, sodium bicarb, lokelma - continue prednisone, tacrolimus, mycophenolate - Nephrology consulted - Cr 1.63; at baseline. Assessment & Plan (03/18/2025 2:24 PM CDT): - mycophenolate - tacrolimus, pending tacrolimus level - prednisone Assessment & Plan (03/18/2025 4:13 AM CDT): - mycophenolate - tacrolimus, pending tacrolimus level - prednisone Type 1 diabetes mellitus with other specified co mplication 12/24/2022 Pre-transplant evaluation fo r kidney and pancreas transplant 05/14/2019 Overview (06/14/2024): Images from the original note were not included. Godfrey Hollins 1985 Listing Date: 05/18/2021 Referring Byproduct Engineer: Dr. Chip Rivera Kidney Disease: DM1 Dialysis Info: Type: HD 01/11/2022, changed to PD 05/01/2022 Start: 01/11/2022 Blood Type: O POS Body mass index is 28.06 kg/m . Endocrinology: Dr Lynne @ [place], [place] ALERTS : May need vasc surg assistance due to extensive calcifications. Immunosuppression Induction Method/Plan: Antithymocyte globulin (rabbit) (Thymoglobulin) 3mg/kg CKD d/t DMI Past Medical History: Diagnosis Date CAD (coronary artery disease) CKD (chronic kidney disease) stage 4, GFR 15-29 ml/min CKD (chronic kidney disease), stage IV Coronary artery disease 2019 stents x2 ARELI to mid LAD and ARELI it the RCA PATTERNMAKER PLASTER Diabetes mellitus type [address] 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 Insulin 05/30/1993. Diabetic retinopathy bilateral lasers x4 Esophageal reflux History of blood transfusion 2003 w/ chemo treatments Hypercholesteremia Hypertension 2014 neph is managing Multiple organ transplant candidate kidney and pancreas Nausea & vomiting NOD. Has nausea in am right when he gets up. Neuropathy left toes Testicular cancer 2007 left testicular CA- surgery + chemo Past Surgical History: Procedure Laterality Date CARDIAC STERNAL PRECAUTION 12/27/2019 Coronary Stent Placement 2019 Cyst Incision and Drainage tailbone HAND SURGERY broken fingers x2 IR ANGIO AV SHUNT NON DIRECT Orchiectomy Left 06/2006 Retinal Detachment Repair Left 2016 Social History Socioeconomic History Marital status: Single Spouse name: Not on file Number of children: Not on file Years of education: Not on file Highest education level: Not on file Occupational History Not on file Tobacco Use Smoking status: Never Smoker Smokeless tobacco: Never Used Vaping Use Vaping Use: Never used Substance and Sexual Activity Alcohol use: Not Currently Drug use: Yes Frequency: 1.0 times per week Types: Marijuana Comment: last smoked 3 days. Sexual activity: Not on file Other Topics Concern Not on file Social History Narrative Not on file Social Determinants of Health Financial Resource Strain: Not on file Food Insecurity: Not on file Transportation Needs: Not on file Physical Activity: Not on file Stress: Not on file Social Connections: Not on file Intimate Partner Violence: Not on file Housing Stability: Not on file Transplant Surgery Clinic Appt w/: Dr. Worrell Date: 05/31/2024 Assessment: Plan: I discussed with discussing the risks and benefits of kidney transplant including the need for lifelong immunotherapy, the need for the patient to be compliant with the immunotherapy, the need for a lifelong relationship with a health care provider and the need to have labs checked frequently. We also talked about the risks of surgery including but not exclusive of , bleeding, infection, prolonged ICU and hospital stay, risks of leaks and thrombosis of any of the hookups of the new kidney. One year survival of 90-95% was given for the graft. I believe is a High risk candidate for kidney transplant due to calcifications , I do not think he will be a good candidate for KP transplant Tests or consults pending prior to submission to multidisciplinary transplant committee for final candidacy determination include: PTH high >700 Extensive calcifications will review No apparent inguinal lymphadenopathy on most recent CT , AFP 12.2 Raul Worrell MD service operations manager Transplant Surgery Clinic Appt w/: Dr. Arias Date: 01/15/2022 Assessment/Plan: Attestation signed by Alex Arias MD at 01/16/2022 9:45 AM Seen and examined with resident. Agree with Dr. Hollins's note. No changes or concerns. Remains active for offers. Plan for transposition of AVF. Dasha Arias MD Assessment/Plan: Godfrey Hollins is 36 year old is a patient with stage 5 Kidney disease, oliguric, cause by his longstanding type I diabetes. He is here for evaluation for a kidney and pancreas transplant. He currently has a a left brachiobasilic fistula that still needs to be surfaced. He needs HD, and until his fistula is ready, he will need an HD catheter to be performed. His systolic function is conserved and adequate at 58% via echocardiogramme on 12/07/2021 after being stented for LAD and proximal RCA on 07/19/2019. He has a history of malignancy s/p left orchiectomy for left testicular cancer, however he underwent a right inguinal lymph node biopsy and was negative for any malignancy. His dental checkup was negative for any oral abscesses, cavities or infections. He does not have any foot sores. He is currently an acceptable candidate for kidney and pancreatic transplant. He needs to follow up mcc with a public administration teacher and he was advised to lose more weight, however this will not affect his transplant operation. He will need to undergo a superficialization of his left brachiobasilic fistula before going for transplant and this will be schedule on February 01 2022. I believe Godfrey Hollins is a Good candidate for kidney and pancreas transplant. At this time the patient needs the following prior to committee presentation: none The following should be completed prior to transplantation but should not preclude listing: - consult with a public administration teacher - lose more weight - superficialization of his left brachiobasilic fistula All listing decisions will be made in the listing committee and are final. Seen and documented by Shyam Miller MD Transplant Surgery 01/15/2022 Nephrology Clinic Appt w/: Dr. Aguilera Date 05/31/2024 Assessments and Recommendations: Godfrey Hollins was seen today for kidney transplant evaluation. Risks and benefits of transplant were discussed including the benefits of living kidney transplant. We discussed high KDPI kidneys and kidneys from donors with PHS risk factors. All questions and concerns were addressed. 1) ESKD on CCPD - Cause of ESKD: Most likely due to Diabetic Nephropathy (not bx confirmed) - On CCPD -> 10 hours - HD started on 01/11/2022, changed to PD 05/01/2022 - Now on 10 hours of CCPD treatment - 5 exchanges, 2.5% Dianeal + Extraneal (last fill) - Residual renal function ~250-300 mL - Vascular access is left upper extremity AV + thrill and bruit. - No family history of kidney disease. Mother has type 2 DM - UPCR 9.5 g/day proteinuria on 12/07/2021 - Information about transplantation options were given 2) Cardiovascular Disease - Due to the risk of CAD in patients with DM and ESKD LHC was performed on 07/19/19. LHC: Multivessel coronary artery disease, PATTERNMAKER PLASTER of the proximal RCA, Severe mid- LAD stenosis, ~60-70%. - LHC on 12/27/2019 --> Successful ARELI to mid LAD, Successful ARELI to RCA PATTERNMAKER PLASTER, Impella used for renal protection (~125 cc contrast utilized for the procedure) - As part of transplant workup, patient underwent LHC on 12/19/22 that showed: Patent stents in RCA and LAD, 80% stenosis in mid LCX which is a small branch (<2mm); stenosis present since 2019, Otherwise nonobstructive coronary arteries, LVEDP: 25 mmHg. - NM Stress Test on 05/06/2024 -> no evidence if mycardial infarction or stress induced ischemia. Unchanged mild global hypokinesia with EF 40% - Echo on 05/06/24 -> EF 51%, LV grade II diastolic dysfunction - Cardiology Asssessment on 05/21/24 1. CAD status post LAD and RCA PCI-> He continues to have reassuring stress test with no evidence of ischemia and no anginal symptoms. Will continue current medical therapy. Continue low-dose aspirin lifelong. I will switch him to rosuvastatin to achieve better LDL control. 2. Hypertension -> Well-controlled on current medical therapy. I will consolidate his metoprolol tartrate to metoprolol succinate given the concern about mild reduced LVEF on the nuclear stress test that has been stable over the last few years to further optimize GDMT. 3. Mildly reduced to low normal LVEF, cardiomyopathy -> His LVEF is normal on echocardiogram and mildly reduced on the nuclear stress test with no globe changer the past few years. He is on adequate GDMT and I will switch him to Toprol tartrate to metoprolol succinate to further optimize that. He is NYHA class I. 4. Dyslipidemia -> His LDL was 64 on atorvastatin, I will switch him to rosuvastatin 20 mg daily with a goal LDL less than 55. Repeat annually with profile. - Follow-up in 1 year - Patient is not taking Aspirin (low dose). He does not know the reason for not taking Aspirin. History of retinal detachment and hemorrhage. Will contact Ophthalmology to discuss about restarting Aspirin as Cardiology recommended 3) Diabetes Mellitus - Macro and microvascular complications of diabetes (+) - Diabetic nephropathy, coronary artery disease, diabetic neuropathy and retinopathy - Peripheral arterial disease : Normal bilateral lower extremity arterial physiologic study. YVONNE's are not able to be calculated bilaterally due to calcified noncompressible distal arteries. There are normal triphasic distal waveforms and normal digit pressures bilaterally - Last HgbA1c 7.8% on 05/06/24 4) History of Malignancy - Testicular cancer s/p orchiectomy - CT chest abdomen on 12/08/20 -> Prominent bilateral inguinal lymph nodes measure up to 1.2 cm in short axis bilaterally. An approximately 2.2 x 2.5 cm hyperattenuating soft tissue density is noted in the region of the left inguinal canal, medial to the femoral vessels, unclear etiology, may represent small hematoma. Mild diffuse esophageal wall thickening, may represent esophagitis. Interval resolution of ground glass lung nodules with background of patchy groundglass attenuation, likely reflects resolved inflammatory/infectious process. - Chest CT on 05/06/2024 -> No acute process identified in the chest. There is atherosclerotic calcifications of the aorta and its branches,circumferential calcification seen in the partially visualized splenic artery. 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 - AFP 12.2 ng/mL on 05/06/24 5) Hypertension - BP level is 180/90 mmHg - On Amlodipine 5 mg, Spironolactone 25 mg tb daily 6) Hematological disorders - Anemia of kidney disease - Hgb 12.4 g/dL on 05/06/24 - TSAT 24 % - Serum ferritin 667 ng/mL 7) CKD Bone and Mineral Disease - Serum Ca 9.2 mg/dL, P 7.5 mg/dL, PTH 737.3 pg/mL on 12/08/20 - On Calcitriol 0.5 mcg on MWF, Sevelamer 800 mg TID po 8) Infections - Viral hepatitis markers negative. HAV vaccination is needed - Anti-HBs (+) 124.6 (05/06/2024) - CMV IgG (-) (05/06/2024) - EBV IgG (+) 9) Immunological Assessment - History of sensitization: (-), Blood transfussion (+), History of failed kidney transplant (-) - PRA Class I 1% and II 0% (on 05/06/24). 10) Vascular Calcifications - CT abd/pelvis wo contrast on 05/10/24: Diffuse atrophy of the pancreas and bilateral kidneys consistent with patient's known type 1 diabetes chronic kidney disease. Peritoneal dialysis catheter within the right lower quadrant with simple attenuating free intraperitoneal fluid and small volume free intraperitoneal air, iatrogenic. Diffuse atherosclerotic calcifications of the aorta and its branch vessels. Mild circumferential atherosclerotic plaque of the bilateral external iliac arteries greatest distally. - Vascular calcifications and candidacy for pancreas will be discussed in selection meeting 11) History of Marijuana and Cocaine use - Completed required assessments and counseling. Negative screening test results Overall Godfrey Hollins is a good patient for kidney transplantation. Vascular calcifications and candidacy for pancreas transplantation will be discussed in selection meeting. Will contact Ophthalmology to discuss about restarting Aspirin as Cardiology recommended. Serum P and PTH levels will be controlled. Patient is seen in the clinic and examined. Plan of care is discussed. Time spent during chart review and patient visit was over 75 mins. Víctor Aguilera MD 05/31/2024 1:42 PM Nephrology Clinic Appt w/: Dr. Aguilera Date: 02/26/2021 A/P: Assessments and Recommendations: Godfrey Hollins was seen today for kidney transplant evaluation. Risks and benefits of transplant were discussed including the benefits of living kidney transplant. We discussed high KDPI kidneys and kidneys from donors with PHS risk factors. All questions and concerns were addressed. 1) CKD Stage 5 - Cause of ESKD: Most likely due to Diabetic Nephropathy (not bx confirmed) - Not started renal replacement treatment - Vascular access is left upper extremity AV + thrill and bruit. - No family history of kidney disease. Mother has type 2 DM - UPCR 8.5 g/day proteinuria on 12/08/2020 - Information about transplantation options were given 2) Cardiovascular Disease - Due to the risk of CAD in patients with DM and ESKD LHC was performed on 07/19/19. LHC: Multivessel coronary artery disease, PATTERNMAKER PLASTER of the proximal RCA, Severe mid- LAD stenosis, ~60-70%. - LHC on 12/27/2019 --> Successful ARELI to mid LAD, Successful ARELI to RCA PATTERNMAKER PLASTER, Impella used for renal protection (~125 cc contrast utilized for the procedure) - Cardiology recommendation on 02/04/2020 -> Recommend continuation of aspirin and clopidogrel for a total duration of 6 months following the revascularization, basically until the end 2019. Beginning in June 2020, should continue a baby aspirin daily, no longer requiring clopidogrel. At that time, would recommend ability to list from a renal transplant standpoint, without any further testing or evaluation should he remain asymptomatic with good exertional tolerance. - Echo on 12/08/20 -> EF 52%, LV segmental wall motion is normal, LV diastolic function is normal, consistent with normal LV filling pressures. Normal augmentation of all wall segments without evidence of ischemia with pharmacologic stress. With pharmacologic stress, improvement in the ejection fraction. Stress EKG is non-diagnostic secondary to suboptimal heart rates response. The right ventricular cavity size is mildly enlarged. Normal right ventricular systolic function. Stress echocardiogram is non-diagnostic secondary to suboptimal maximum predicted heart rate. There is mild tricuspid regurgitation. - NM Test (01/16/21): No evidence of myocardial infarction or stress-induced ischemia, Normal left ventricular wall motion and thickening. EF 51%. Plan: - Patient is still taking Plavix. Recommend to discontinue Plavix based on Cardiology recommendations (6 months from 02/04/20) 3) Diabetes Mellitus - Macro and microvascular complications of diabetes (+) - Diabetic nephropathy, coronary artery disease, diabetic neuropathy - Peripheral arterial disease : Normal bilateral lower extremity arterial physiologic study. YVNONE's are not able to be calculated bilaterally due to calcified noncompressible distal arteries. There are normal triphasic distal waveforms and normal digit pressures bilaterally 4) History of Malignancy - Testicular cancer s/p orchiectomy - CT chest abdomen on 12/08/20 -> Prominent bilateral inguinal lymph nodes measure up to 1.2 cm in short axis bilaterally. An approximately 2.2 x 2.5 cm hyperattenuating soft tissue density is noted in the region of the left inguinal canal, medial to the femoral vessels, unclear etiology, may represent small hematoma. Mild diffuse esophageal wall thickening, may represent esophagitis. Interval resolution of ground glass lung nodules with background of patchy groundglass attenuation, likely reflects resolved inflammatory/infectious process. - MRI of the chest performed on 02/13/21 which showed no mediastinal or hilar adenopathy. normal MRI of the chest. 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 5) Hypertension - BP level is 180/90 mmHg - On Amlodipine 10 mg, Coreg 25 mg BID, Isosorbide hydralazine 20-37.5 mg TID po and Bumex 2 mg daily Plan: - Will contact with primary monument stonecutter for BP management 6) Hematological disorders - Anemia of kidney disease - Hgb 11.6 g/dL on 12/08/20 - TSAT 23 % - Serum ferritin 130 ng/mL 7) CKD Bone and Mineral Disease - Serum Ca 9 mg/dL, P 5.3 mg/dL, PTH 261.2 pg/mL on 12/08/20 - On Sevelamer 800 mg TID po 8) Infections - Viral hepatitis markers negative - Anti-HBs (+) 137.2 (12/08/2020) - CMV IgG (-) (12/08/2020) - EBV IgG (+) 9) Immunological Assessment - History of sensitization: (-), Blood transfussion (-), History of failed kidney transplant (-) - PRA Class I and II 0% (on 12/13/20). - HLA typing will be performed 10) COVID-19 prevention - Pfizer vaccines 2 doses completed Patient is seen in the clinic and examined. Plan of care is discussed. Transplant Nephrology Attending Víctor Aguilera MD 02/26/2021 12:[address] Reyes Date: 05/18/19 A/P: Assessments and Recommendations: Godfrey Hollins was seen today for kidney pancreas evaluation Risks and benefits of transplant were discussed with the patient. Discussed the risks of pancreas transplant, risk of immunosuppression and the risk of dialysis. We discussed that his neuropathy would not improve with pancreas transplant and we discussed that his vision may worsen shortly after transplant but usually stabilizes. We did discuss if his antibodies to HLA were high from his blood transfusion he may benefit from living donor kidney transplant followed by pancreas transplant. He does need to finish his hepatitis A vaccine. Since his alpha feta protein is slightly increased he will see his oncologist for clearance. He will also need a cardiac cath given his long history of diabetes. All questions and concerns were addressed. Will progress with workup. Other Consults: Cardiology: 05/21/2024 ASSESSMENT & PLAN Godfrey Hollins is a very pleasant 39 year old male who I had the pleasure of meeting with today for new consultation regarding his cardiovascular issues outlined below. 1. CAD status post LAD and RCA PCI He continues to have reassuring stress test with no evidence of ischemia and no anginal symptoms. Will continue current medical therapy. Continue low-dose aspirin lifelong. I will switch him to rosuvastatin to achieve better LDL control. 2. Hypertension Well-controlled on current medical therapy. I will consolidate his metoprolol tartrate to metoprolol succinate given the concern about mild reduced LVEF on the nuclear stress test that has been stable over the last few years to further optimize GDMT. 3. Mildly reduced to low normal LVEF, cardiomyopathy His LVEF is normal on echocardiogram and mildly reduced on the nuclear stress test with no globe changer the past few years. He is on adequate GDMT and I will switch him to Toprol tartrate to metoprolol succinate to further optimize that. He is NYHA class I. 4. Dyslipidemia His LDL was 64 on atorvastatin, I will switch him to rosuvastatin 20 mg daily with a goal LDL less than 55. Repeat annually with profile. Follow-up in 1 year All questions/concerns were answered to the patient's satisfaction and we are all in agreement with this plan proposed above understanding all the risks and benefits. I spent 45 minutes today. This total amount of time was spent including preparation for the patient's appointment, reviewing and interpreting the medical records/chart review, laboratory data, and imaging data as well. Significant proportion of the time was also spent in [id number] interaction with the patient as well as formulating a plan for management. Thank you for allowing us to participate in the care of your patient and please do not hesitate to reach out to us if any questions or concerns. Rosalie Posada MD, [facility], [facility] Interventional and Structural Cardiology [facility] Dr. Maier 12/06/2021 Impression and Recommendations: 1. Type I DM 2. CKD 3. Multivessel CAD, ARELI to LAD and RCA PATTERNMAKER PLASTER with Impella support 4. Hx of testicular cancer T2N1 s/p left orchiectomy in 2006, post 3 cycles of BEP chemotherapy (Bleomycin, etoposide, and cisplatin) Asymptomatic from CAD perspective He does use PRN Sildenefil; for this reason stopping bidil and starting only hydralazine 50 mg TID Check lipid panel with next blood wokr Continue ASA 81 and all other meds Follow up in 3 months to check on BP control Sylvie Jurado MD [facility] Cardiology Dr. Jurado: 06/07/2021 Cardiology: 02/04/2020 Oncology: Dr Juanjo Mclaughlin 06/08/19 - pt h/o testicular CA 2006 - left orchiectomy Right Testicle US: 06/03/19 FINDINGS: Right testicle measures 4.5 x 2.3 x 3.2 cm. No mass is seen within the right testicle. Flow is seen within the right testicle on color flow Doppler study. Small right hydrocele. Left testicle not present/not identified. IMPRESSION: 1. LEFT TESTICLE NOT IDENTIFIED/NOT PRESENT WITHIN THE SCROTUM. 2. SMALL HYDROCELE. Left Inguinal mass Bx: 10/19/2019 Dr. Jeff: 2021 Assessment: 36yo male with history of T2N1 NSGCT s/p left orchiectomy 2006, 3 cycles BEP adjuvant chemotherapy. Recommendations: Discussed his situation is complicated by plans for transplant and need for anti-rejection medications. Given the timing of his diagnosis and treatment, the risk of recurrent testicular cancer seem low and the findings of inguinal adenopathy/inguinal mass have been stable for years. Additionally, low but stable AFP is typically monitored unless it is >20 or rising, and his AFP has been stable. All this indicates the risk seems low, but given the transplant setting we discussed use of biopsy for a cautionary measure. -In office biopsy of left inguinal incisional mass and inguinal adenopathy (likely right) Jimmy Jeff MD 2021 9:56 AM Right inguinal BX: 04/25/2021 Final Diagnosis Lymph node, right inguinal, biopsy(A): - Benign skin, subcutaneous tissue, and scant lymphoid tissue - Negative for metastatic carcinoma at 1439 Committe Meetings 06/11/2024: Induction Method: Immunosuppression Induction Method/Plan: Antithymocyte globulin (rabbit) (Thymoglobulin) 3 mg/kg Committee Discussion Details: Pt brought to [facility] to discuss possible listing. -Reviewed PMH and eval test results. -Reviewed previous listing for and delisting on 12/26/2022 due to drug usage and SI. Pt was to establish an ongoing relationship with a substance abuse counselor, provide negative drug screens, and establish with a psychiatrist and maintain that care for 1 year prior to re referral. Pt has maintained monthly visits with Joan Preshears at [facility] in [place]. She is both a certified [facility] substance abuse counselor as well as [facility] licensed counselor to manage suicide ideation. She is also a nurse. Reviewed results of psych checklist. Pat reports that pt has been doing very well and she had no concerns. Melinda FRIAS noted that pt has strong post support and has shown good compliance. She voiced no concerns with listing. -Reviewed Dr. Worrell's clinic note. Concerns raised regarding extensive calcifications. CT images reviewed. All surgeons present and discussed best placement for txp kidney. Pt is not a candidate for a KP. He will be a kidney only. Will place an alert that vasc surg may be needed during txp. -Pt has hx of CAD with stent placement. Re established with cardiology on 05/21/2024. Recommended lifelong ASA. Pt was not on when med list reviewed in clinic. Pt confirmed no bleeding concerns with opthalmology and restarted 81 mg ASA. Will cont annual follow up. -Reviewed testicular cancer and treatment in 2006. Pt seen by Dr. Jeff. Low risk, inguinal adenopathy/inguinal mass have been stable for years. AFP has been stable. -PTH and phos levels from May lab draw reviewed. PTH 368 and phos 7 -Reviewed HAV and HBV. Pt is immune and has ab to both. Vaccine record reviewed. -Reviewed abscess noted on panorex 05/06/2024. Dental clearance from dentist obtained 05/12/2024 -YVONNE completed in 2020. Pt did report calf pain in clinic. Repeat YVONNE and vasc surg ref requested. Pt is scheduled for 07/07/2024 -Anny MALDONADO voiced no concerns with listing. -Previously discussed insurance auth with Gabrielle and ok to list. No concerns. Per team ok to list for kidney only. 12/26/2022 Committee Review Decision: Remove Committee Discussion Details: Pt was presented at [facility] to discuss positive drug screen. Reviewed with team pt was admitted for direct K/P donation. Tested positive for cocaine screen x 2. Pt has history of cocaine use. Pt also verbalized suicide ideation to his family when he was told the surgical case was being cancelled. Per team, remove from wait list. Pt may be re-referred for txp following 1 year of drug abstinence, has established with and has ongoing relationship with substance abuse counselor, and has provided 3 negative drug screens over a six month period. Additionally, pt with need to have established care with a psychiatrist and have maintained continued care for 1 year and obtained psych clearance. 05/03/2021: Induction Method: Immunosuppression Induction Method/Plan: Antithymocyte globulin (rabbit) (Thymoglobulin) 6 mg/kg Committee Discussion Details: Pt brought to [facility] to discuss for possible listing. Reviewed PMH and current problem list. -Pt in evaluation for KP. PMH of CAD, diabetic retinopathy, and neuropathy. -Pt was a previous referral that required intervention s/p LHC. Stents x2. Completed DAPT. Reviewed DSE and NM stress completed with this eval. Team would like pt to have close follow up every 6 months with the temporary administrative assistant. -Reviewed PMH of testicular cancer. Reviewed notes from previous oncologist Dr Mclaughlin. Due to insurance issues pt no longer follows with Dr. Mclaughlin. Pt was see here by Dr. Jeff. Reviewed right testicular US, left testicle bx, left and right inguinal mass biopsies. Reviewed AFP results. Dr. Jeff recommendations: risk of recurrent testicular cancer seem low. -CT findings. Reviewed mediastinum and kiel lymph nodes. Dr. Liao had requested pt to be evaluated by ID. Pt had a MRI with dotarem completed at Dr. Bonilla request, unable to do CT with contrast b/c pt is not on dialysis. MRI was normal. Per Dr. Steward it was not necessary for her to see him due to normal MRI -Evelyn FRIAS no concern -Anny MALDONADO, no concern. Per team ok to list pt for KP pending LMN. Evaluation Testing: Labs:05/06/2024 PTH: 737.3 A1c:7.8 Glucose: 260 GFR: 6 Albumin: 3.6 Serologies:see below CMV Igg: NEG EBV Igg: POS 2018 Varicella: POS MMR: immune Tox screen: see below Strongyloides: 0.1 NEG Toxo: <3.0 PRA: Class 1 0% Class 2 0% Latest Reference Range & Units 12/19/22 08:04 12/25/22 10:22 12/26/22 06:04 12/26/22 08:26 05/06/24 12:52 Calcium 8.4 - 10.2 mg/dL 9.1 9.3 9.1 9.2 Phosphorus 2.8 - 5.1 mg/dL 5.4 (H) 6.3 (H) 7.5 (H) (H): Data is abnormally high Latest Reference Range & Units 05/06/24 12:52 Uric Acid 3.5 - 7.2 mg/dL 8.2 (H) (H): Data is abnormally high Latest Reference Range & Units 12/25/22 10:22 05/06/24 12:52 Total Cholesterol (NMR) <200 mg/dL 114 154 Triglycerides <150 mg/dL 105 260 (H) HDL >40 mg/dL 37 (L) 38 (L) LDL Calculated <100 mg/dL 56 64 (H): Data is abnormally high (L): Data is abnormally low atorvastatin (Lipitor) 40 MG tablet Latest Reference Range & Units 05/07/19 07:27 02/26/21 12:51 05/06/24 12:52 Alpha-Fetoprotein Tumor Marker <=8.3 ng/mL 12.2 (H) 13.6 (H) 12.2 (H) (H): Data is abnormally high Latest Reference Range & Units 05/06/24 12:52 C-Peptide 0.5 - 3.3 ng/mL <0.1 (L) (L): Data is abnormally low Latest Reference Range & Units 12/07/21 11:57 12/07/21 11:58 12/25/22 10:22 05/06/24 12:52 HIV Antigen/Antibody 1 & 2 Non-reactive Non-reactive Non-reactive Non-reactive Hepatitis A Virus Antibody Total Negative Positive ! HBc Antibody Total Non-reactive Non-reactive Non-reactive Non-reactive Hepatitis B Virus Surface Antibody IU/L 136.67 Hepatitis B Surface Antibody Quantitative <8.0 mIU/mL 139.3 (H) 124.6 (H) Hepatitis B Virus Surface Antibody Non-reactive Reactive ! Reactive ! Hepatitis B Virus Surface Antigen Non-reactive Non-reactive Non-reactive Non- reactive Hepatitis C Antibody Non-reactive Non-reactive Non-reactive Hepatitis C RNA PCR, Interp Not detected Not detected !: Data is abnormal (H): Data is abnormally high VAQTA-Adult (HEP A VACCINE, ADULT)05/12/2019 VAQTA-Peds (HEP A PEDS 2 DOSE)11/08/2019 Kidney bx: na Renasight: na Echo: 05/06/2024 Summary * The left ventricle is normal in size, with low normal systolic function and an estimated ejection fraction of 51 % by biplane method of disks. Left ventricular wall motion is grossly normal, however endocardial definition is limited. * The left ventricular mass is mildly increased with concentric hypertrophy. * The left ventricular diastolic function is consistent with grade II diastolic dysfunction. * Right ventricle is normal in size with normal systolic function. * No hemodynamically significant valve disease. Left Ventricle The left ventricle is normal in size. Left ventricular systolic function is low normal with an estimated ejection fraction of 51 % by biplane method of disks. The left ventricular mass is mildly increased with concentric hypertrophy. Left ventricular segmental wall motion is grossly normal, however endocardial definition is limited. The left ventricular diastolic function is consistent with grade II diastolic dysfunction. Right Ventricle The right ventricle is normal in size. Right ventricular systolic function is normal. Left Atrium The left atrium is mildly dilated with a left atrial volume index of 34 ml/m2 by BP MOD. Right Atrium The right atrium is mildly dilated. Atrial Septum Intact interatrial septum visualized by 2D and color Doppler imaging. Aortic Valve The aortic valve is trileaflet. There is no aortic valve stenosis. There is no aortic valve regurgitation. Pulmonic Valve The pulmonic valve is grossly normal. There is no pulmonic valve stenosis. There is no significant pulmonic regurgitation. Mitral Valve The mitral valve is normal. There is no mitral valve stenosis. There is mild mitral valve regurgitation. Tricuspid Valve The tricuspid valve is normal. There is no significant tricuspid valve regurgitation. Unable to assess pulmonary pressures due to a lack of tricuspid and pulmonic regurgitation. Inferior Vena Cava The inferior vena cava is normal in size (< 2.1 cm). Pericardium/Pleural There is no pericardial effusion. Aorta The aortic root at the sinus of Valsalva is normal in size. The ascending aorta is normal in size. NM Stress: 05/06/2024 Findings: The image quality is technically excellent without significant motion or adjacent bowel activity. In the stress and rest SPECT/CT images, the left ventricle is normal in size. The stress SPECT/CT images show a normal pattern of myocardial perfusion. There is no significant change in the perfusion pattern at rest. Small area of moderately decreased uptake in the apical segment both on the rest and stress study is likely due to apical thinning and is unchanged comparing the prior scan. Gated SPECT/CT images show normal myocardial thickening and normal wall motion. The calculated left ventricular ejection fraction is 40% previously it was 43%. Low dose CT portion of the study-non diagnostic- but demonstrates no pleural or pericardial effusion. Impression: 1. No evidence of myocardial infarction or stress-induced ischemia. 2. Essentially unchanged mild global hypokinesia with estimated ejection fraction of 40% previously 43%. [facility]: 12/20/2022 Conclusion Patent stents in RCA and LAD 80% stenosis in mid LCX which is a small branch (<2mm); stenosis present since 2019 Otherwise nonobstructive coronary arteries LVEDP: 25 mmHg. Recommendations - Follow maximal guideline directed medical therapy for stable coronary artery disease. - Recommend high dose statin therapy and aspirin 81 mg by mouth daily indefinitely. - Resume previous medications. - Consult cardiac rehab. - The patient is low risk for surgery. Recommend proceeding with surgery. Coronary Findings Diagnostic Dominance: Right Left Main The vessel was visualized by selective angiography and is moderate in size. The vessel exhibits minimal luminal irregularities. The vessel originates from the left coronary sinus. 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 There is mild diffuse disease throughout the vessel. Previously placed Mid LAD drug-eluting and unknown type of stents are widely patent. Previous treatment took place more than 2 years ago. Dist LAD lesion is 40% stenosed. Left Circumflex The vessel was visualized by selective angiography and is moderate in size. There is mild diffuse disease throughout the vessel. Mid Cx to Dist Cx lesion is 80% stenosed. Right Coronary Artery The vessel was visualized by selective angiography and is moderate to large in size. The vessel exhibits minimal luminal irregularities. Previously placed Prox RCA drug eluting stent is widely patent. MARY ELLEN flow is 3. Previous treatment took place more than 2 years ago. Interventions No interventions have been documented. 12/19/2022 Alejandra Wellington MD Light, Jennifer K, RN; Dulce Geiger PA; Víctor Aguilera MD; Alex Arias MD Dear Doctors: I performed cardiac cath for our mutual patient Godfrey J Pettibone who presented for pretransplant coronary evaluation. Cath showed: 1. Patent stents in RCA and LAD that were placed in 2020 2. 80% stenosis in mid LCx which is too small a branch (<2 mm) to stent. Further, this stenosis has been there since 2019. 3. Otherwise nonobstructive coronary arteries In light of the findings, I suggest proceeding with the remainder of the transplant evaluation without additional cardiac work-up. If you have any questions, please feel free to call or text me on my cell phone [phone]. I appreciate the opportunity to participate in the care of your patient and look forward to being of service in the future as well. Sincerely, Alejandra Wellington MD, PhD, [facility]: 07/19/2019 ANGIOGRAPHY: i. Left main: short vessel that trifurcates into the LAD, LCx, and Ramus intermedius. ii. LAD: Long vessel that gives off a diagonal branch in the mid vessel after the first septal looping machine operator before wrapping around the apex distally. The prxoimal LAD has diffuse luminal irregularities. There is a severe 60-70% focal stenosis after the second septal looping machine operator. The LAD distal to this stenosis has diffuse 20 to 30% mild disease. D1 has moderate 40-50% diffuse stenosis proximally and luminal irregularities in the mid to distal portion of the vessel. iii. LCx: Non-dominant vessel that gives off two OM branches before continuing in the AV groove as a diminutive vessel. The proximal LCx has mild diffuse 10% disease. OM1 is a large caliber vessel with 30-40% diffuse stenosis proximally, mild 20-30% diffuse stenosis in the mid segment, and mild 10-20% disease distally. OM2 has a severe focal 80-90% stenosis at its ostium and diffuse 20% disease proximally. iv. RCA: Dominant vessel. There is a chronic total occlusion of the proximal RCA. The rPDA and rPL fill distally via [id number] collaterals. v. Ramus intermedius: small caliber vessel with diffuse luminal irregularities. DOMINANCE: Right DIAGNOSTIC INTERPRETATIONS: 1. Multivessel coronary artery disease. 2. PATTERNMAKER PLASTER of the proximal RCA 3. Severe mid-LAD stenosis, ~60-70%. RECOMMENDATIONS AFTER DIAGNOSTIC CATHETERIZATION: Medical management of chronic CAD. Aspirin 81 mg QDAY indefinitely. High intensity statin therapy. Pt prescribed Metoprolol tartrate 12.5 mg PO BID before discharge from outpatient procedure. Aggressive modification of atherosclerotic risk factors. Heart team evaluation for revascularization via coronary artery bypass grafting vs multivessel PCI. [facility]: 12/27/2019 LESION UNDERGOING INTERVENTION : PCI TO THE LAD. LESION MODIFIERS: Type B1 RESTENOSIS?:no ACCESS: Through the left femoral artery 6 Fr sheath GUIDE: 6 Fr JL 3.5 guide catheter was used for intervention. ORAL ANTIPLATELET THERAPY: Aspirin and clopidogrel INTRAVENOUS ANTICOAGULATION DURING PCI: Heparin INTERVENTIONAL WIRE: A Samuri wire was advanced beyond the lesion into the distal vessel. PROCEDURE DETAILS:Balloon angioplasty was performed using a 3 x 15 balloon. After angioplasty, a Xience drug-eluting 3 x 23 mm stent was deployed across the lesion. After intervention, the 80% stenosis was reduced to 0% with MARY ELLEN-3 flow prior to PCI and MARY ELLEN-3 flow after PCI. LESION UNDERGOING INTERVENTION : PCI TO THE RCA. LESION MODIFIERS: chronic total occlusion RESTENOSIS?:no ACCESS: 7 Fr sheath placed through Impella sheath in the right femoral artery GUIDE: 7 Fr JR4 guide catheter was used for intervention. ORAL ANTIPLATELET THERAPY: Aspirin and clopidogrel INTRAVENOUS ANTICOAGULATION DURING PCI: Heparin PROCEDURE DETAILS:A Fielder XT wire was placed through a 135 cm Turnpike catheter and directed down to the site of the occlusion. This wire seemed to easily cannulate small bridging collateral vessels repeatedly and after a short time, we left the wire and the Turnpike in the proximal vessel and opted for a retrograde approach. A 150 cm Corsair microcatheter was placed over the Samuri wire and advanced down the LAD through the 6 Fr guide. The 3rd septal was cannulated as that was the one that seemed to produce the clearest collateral filling. The wire was then removed and replaced with a 300 cm Fielder FC wire. This wire was used to surf for the collateral connection to the PDA which was eventually found. The wire continued to track retrograde up the RCA and just distal to the point where the Turnpike was positioned. At this time, the Corsair catheter was slowly and meticulously advanced through the septal collateral and retrograde from the PDA to the mid RCA. With this catheter is support, the Fielder FC wire was able to pass in a retrograde fashion beyond the stenosis and was seen dancing with the Turnpike catheter. After some brief manipulation, the wire was seen to enter the RCA guiding catheter. The Corsair catheter was then advanced into the guide and the wire removed. An RG III wire was then advanced in the 6 Fr guide and externalized from the 7 Fr guide. Once this was done, the Corsair catheter was retracted back into the PDA. A 3 x 20 mm balloon was then used to dilate the occluded segment. A 3 x 38 mm Xience stent followed by a 3.5 x 23 and 2.5 x 12 were placed from distal to proximal (not covering the ostium of the RCA). Following the completion of stenting, the RG III wire was then slowly removed with the Corsair catheter being withdrawn from the left sided guide. After intervention, the 100% stenosis was reduced to 0% with MARY ELLEN-0 flow prior to PCI and MARY ELLNE-3flow after PCI. COMPLICATIONS: none HEMOSTASIS: At the conclusion of the procedure, hemostasis was achieved as described above after removal of all catheters, wires, and sheaths. INTERVENTIONAL CONCLUSIONS: 1. Successful ARELI to mid LAD 2. Successful AERLI to RCA PATTERNMAKER PLASTER 3. Impella used for renal protection (~125 cc contrast utilized for the procedure) RECOMMENDATIONS AFTER INTERVENTIONAL PROCEDURE: Aspirin 81 mg QDAY indefinitely. Clopidogrel 75 mg QD x 3 months Aggressive therapy for early onset atherosclerotic disease Check creat tomorrow and again on to assure understanding of how renal function was affected If no issue over the next 3 months, would suggest that he could be listed for renal transplantation without elevated cardiovascular risk and his clopidogrel can be discontinued (favoring ASA 81 mg QD to be continued indefinetly). Jean-Paul Hoffmann MD 12/27/2019 CXR: 05/06/2024 FINDINGS/IMPRESSION: Left perihilar calcified granuloma. Normal lung expansion. There is no focal consolidation, pleural effusion, or pneumothorax.The cardiomediastinal silhouette is normal. No displaced fractures identified. CT Chest wo: 05/06/2024 Findings: Evaluation of visceral and vascular structures is degraded due to lack of intravenous contrast administration. Lower Neck and Axillae: Subcentimeter nodules in the bilateral thyroid lobes. Lungs: No pulmonary parenchymal or airway process is present. No suspicious pulmonary nodules are identified. No pleural fluid or pneumothorax is present. Heart and Pericardium: The cardiac chambers are normal in size. No pericardial fluid or thickening is present. Mediastinum and Kiel: No enlarged lymph nodes are present. Scattered subcentimeter mediastinal and hilar lymph nodes. Thoracic Vasculature: The aorta and its branch vessels are atherosclerotic. Coronary artery calcifications. Bones and Chest Wall: Bone windows demonstrate no suspicious lytic or blastic lesions. The visible osseous structures are intact. Upper Abdomen: Atrophic pancreas. Small hiatal hernia. Atherosclerotic calcifications of the partially visualized splenic artery. Impression: 1.No acute process identified in the chest. 2.There is atherosclerotic calcifications of the aorta and its branches, circumferential calcification seen in the partially visualized splenic artery. CT Chest wo: 06/03/19 FINDINGS: Heart size is normal. No pericardial effusion is evident. 3 slightly prominent mediastinal lymph node, indeterminant size range. No definite hilar lymphadenopathy identified on this noncontrast study. No infiltrate or effusion identified. No lung mass identified. IMPRESSION: 1. NO LUNG NODULE OR MASS IDENTIFIED. 2. 3 MEDIASTINAL LYMPH NODES IN THE INDETERMINANT SIZE RANGE. FOLLOW-UP AT LEAST CLINICALLY RECOMMENDED. CT chest WO contrast: 12/08/2020 Findings Evaluation of visceral and vascular structures is degraded due to lack of intravenous contrast administration. Chest: Lines/Tubes: None. Lower neck and axillae: Bilateral nonspecific axillary lymph nodes with fatty hilum are present. Mediastinum and Kiel: Pretracheal lymph nodes measure up to 7 mm in short axis, previously 11 mm. Subcarinal nodes measure up to 1.0 cm in short axis, previously 1.7 cm. Right hilar lymph nodes measure up to 1.1 cm in short axis. Heart and Pericardium: Heart size is normal. No pericardial fluid. Coronary stents are noted. Lung Parenchyma, Airways, and Pleural Spaces: Interval resolution of scattered groundglass nodules and patchy bilateral groundglass attenuation. No suspicious pulmonary nodules identified. No pleural effusion or pneumothorax. Large airways are patent. Abdomen/pelvis: Hepatobiliary: The liver appears normal. Gallbladder is contracted. Bile ducts are nondilated. Pancreas: Atrophic. Spleen: Normal. Kidneys: Scattered vascular calcifications. The kidneys otherwise attenuate normally. No hydronephrosis. Adrenals: Normal. Retroperitoneum/peritoneum: Subcentimeter retroperitoneal and mesenteric lymph nodes are present. No intra-abdominal free fluid or free air. Gastrointestinal: There is mild thickening of the esophagus, may represent esophagitis. The stomach and duodenum appear normal. The rest of the small bowel loops and colon appear normal without evidence of wall thickening or obstruction. An appendicolith is present without evidence of appendiceal inflammation. Pelvic Structures: The urinary bladder is nondistended. Prostate is normal. No pelvic free fluid. Vasculature: Scattered atherosclerotic vasculature changes. There is minimal atherosclerotic calcification of bilateral common and left external iliac artery and to a lesser degree of the right external iliac artery. Moderate calcification of bilateral internal iliac arteries is noted. Bones: The visible osseous structures are intact. Soft tissues: Prominent bilateral inguinal lymph nodes measure up to 1.2 cm in short axis bilaterally. An approximately 2.2 x 2.5 cm hyperattenuating soft tissue density is noted in the region of the left inguinal canal, medial to the femoral vessels, unclear etiology, may represent small hematoma (image 188, series 3). Impression: 1.Interval resolution of ground glass lung nodules with background of patchy groundglass attenuation, likely reflects resolved inflammatory/infectious process. 2.Residual mediastinal adenopathy, diminished from prior. 3.Minimal calcifications of the external iliac arteries as detailed above. 4.Indeterminant inguinal adenopathy could be reactive although metastatic disease could appear similarly. 5.Hyperattenuating 2.2 x 2.5 cm soft tissue density in the region of the left inguinal canal, unclear etiology, may present small hematoma. Recommend clinical correlation. 6.Mild diffuse esophageal wall thickening, may represent esophagitis. Recommend clinical correlation. If indicated, endoscopic evaluation may be obtained. MRI chest with dotarem: 02/13/2021 FINDINGS: The lungs are clear. Heart size is normal. No pericardial fluid. No mediastinal mass. No pathologically enlarged mediastinal or hilar lymph nodes. No abnormal enhancement or restricted diffusion. Nonspecific axillary lymph nodes measure up to 1.3 cm on the right and 0.9 cm in the left, in short axis. These lymph nodes demonstrate normal fatty kiel. The major thoracic vessels appear normal. The pancreas is not well seen and may be atrophic. The imaged upper abdomen is otherwise unremarkable. IMPRESSION: 1.No mediastinal or hilar adenopathy. 2.Normal MRI of the chest. CT a/p: 05/10/2024 Findings: Evaluation of visceral and vascular structures is degraded due to lack of intravenous contrast administration. Lower Chest: The visualized lung bases are clear. Coronary artery atherosclerosis and stents. Liver: Other than small volume simple attenuating perihepatic fluid, the liver is unremarkable within limitations of noncontrast technique. Gallbladder and Bile Ducts: Normal. Spleen: Normal in size. Small volume simple attenuating perisplenic fluid. Pancreas: The pancreas is diffusely atrophic. Adrenals: Normal. Kidneys: Atrophic. No hydronephrosis or nephrolithiasis. Gastrointestinal: The stomach and visualized loops of large and small bowel are unremarkable. Normal appendix. Mesentery/Peritoneum/Retroperitoneum: Right lower quadrant approach peritoneal dialysis catheter coiling within the right lower pelvis. There is small to moderate volume free intraperitoneal fluid surrounding the liver, spleen and multiple bowel loops in the lower pelvis in addition to small volume pneumoperitoneum. No lymphadenopathy. Bladder: The bladder is partially distended. Reproductive Organs: The prostate is normal. Vasculature: Diffuse atherosclerotic calcifications of the aorta and its branch vessels. There is mild circumferential atherosclerotic plaque of the bilateral external iliac arteries greatest distally. Bones: Bone windows demonstrate no suspicious lytic or blastic lesions. The visible osseous structures are intact. Soft tissues: Mild stranding within the subcutaneous soft tissues in the left mid abdomen which may represent sequelae of subcutaneous injection. Impression: 1.Diffuse atrophy of the pancreas and bilateral kidneys consistent with patient's known type 1 diabetes chronic kidney disease. 2.Peritoneal dialysis catheter within the right lower quadrant with simple attenuating free intraperitoneal fluid and small volume free intraperitoneal air, iatrogenic. 3.Diffuse atherosclerotic calcifications of the aorta and its branch vessels. Mild circumferential atherosclerotic plaque of the bilateral external iliac arteries greatest distally. Panorex: 05/06/2024 FINDINGS: Dental carries in left maxillary molar. Small periapical abscess at left mandibular canine. Multiple dental restorations are identified, and numerous teeth are absent. No acute mandibular fracture is identified. Both temporomandibular joints are intact. IMPRESSION: Small periapical abscess at left mandibular canine. Dental caries in the left maxillary molar. Dental Clearance: [facility]05/07/19 CONTRAST: 275 mL of Cystografin FINDINGS: A insole and outsole splitter radiograph was unremarkable. A Brown catheter was placed through the urethra in a sterile fashion. The urinary bladder was then filled to patient tolerance with a total of 275 mL of contrast. Multiple radiographs obtained after the bladder was completely filled with contrast demonstrated no evidence of vesicoureteral reflux. The bladder appeared normal without filling defects. Fluoroscopic images obtained while the patient voided demonstrated normal urethral contour. A postvoid overhead radiograph demonstrated no residual contrast in the bladder. IMPRESSION: Normal-appearing bladder and urethra. No vesicoureteral reflux or postvoid residual. ABIs: 12/08/2020 Normal bilateral lower extremity arterial physiologic study. YVONNE's are not able to be calculated bilaterally due to calcified noncompressible distal arteries. There are normal triphasic distal waveforms and normal digit pressures bilaterally Latest Reference Range & Units 05/06/24 12:52 QuantiFERON-TB Gold Plus Negative Negative Colonoscopy: <45 yo SW:05/06/2024 Clinical Social Work Impression: It is the impression of this social services designee that Godfrey Hollins has several positive factors for Kidney and Pancreas from a psychosocial perspective. Patient appears to have appropriate knowledge of illness. Patient has sufficient insurance coverage and stable financial situation for post transplant needs. No concerns regarding substance abuse, legal issues, or mental health needs. Patient has adequate support system and appropriate discharge plan. De-listed 11/2022 for positive drug screen and SI. Has been going to [facility] every month-psych clearance sent Plan: licensed clinical social worker to provide supportive services as needed. Patient appears to be a reasonable candidate for transplant from a psychosocial perspective. -Post transplant arrangement forms are needed prior to being listed. Psychiatric Consult Recommended: Yes related to:Substance Abuse Transplant Wire Hanger: Melinda Farfan LMSW Abdominal Transplant Wire Hanger [phone] Transplant Caregiver Confirmation Note Caregiver Confirmation Date Primary Name of Primary: Norman Hollins Relationship: Father - Confirmed during initial assessment Secondary Name of Secondary: Jennifer Hollins Relationship: Sister - Confirmed during initial assessment BARBARA French Jennifer K RN Registered Nurse Specialty: Tumbler Machine Operator Telephone Encounter Signed Encounter Date: 06/25/2023 Received VM from Joan Wilson at [facility]. She has release to discuss pt. [phone]. I called her back and LVM. She called me back. She verified she both a certified [facility] Drug [facility] Alcohol susbtance abuse counselor as well as [facility] licensed counselor he is seeing for the suicide ideation. She is also a nurse. We reviewed his delisting status for 1 year. Attempted to call pt to review tox screen results (MJ+, all others negative). No answer, mailbox full. Notified by Rui Harkins of possible directed donation. Reviewed eval for completion. PTH and phos levels obtained from [facility] yesterday. PTH is under 700 and phos is 7. Message sent to Dr. Worrell. Surg clinic note pending. Spoke with Gabrielle [place], no concerns from a financial stand point. Psych checklist is pending. I called pt's counselor Pat directly. She states no concerns with pt at all and noted that he has been doing very well. Asked that we re email her the checklist and she will get in completed within the hour. PSC meeting planned for 1600 today. : 06/08/2024 BMI= 28.7, overweight. Pt remains a good candidate for kidney/pancreas transplant from a nutrition standpoint Recommendations/Interventions: Discussed with patient Post-Transplant Diet: It is recommended to follow a Low Sodium, Limited Added Sugar, and Food Safety diet, as well as avoiding foods/beverages that may interfere with Transplant meds. Pt instructed that it is possible to develop DB and have high K+ post transplant. Went through Dietary Recommendations post-transplant checklist with pt. 12/07/2021 Date of Interview: 12/07/2021 Interviewed in person Ht: 69 in Dry Wt: 195.4 lbs BMI: 29.9 -overweight Pt aware of appropriate BMI? yes Wt hx: Recent Weights/Methods 04/23/2021 1506 04/23/2021 1555 06/07/2021 1023 12/06/2021 1044 12/22/2021 1600 Weight: 190 lb 190 lb 203 lb 206 lb 195 lb 6.4 oz Weight Method (Utilize Scales): -- -- -- -- Standing BMI= 28.9, overweight. Pt remains a good candidate for kidney/pancreas transplant from a nutrition standpoint Recommendations/Interventions: Brief discussion diet after Txp, Food safety guidelines discussed Items Still Pending: Psych checklist Hypertension 06/30/2014 Assessment & Plan (03/18/2025 2:24 PM CDT): - home regimen: Amlodipine, Coreg, HCTZ - current: Amlodipine and coreg, holding HCTZ due to receiving IVF for angio Assessment & Plan (03/18/2025 4:13 AM CDT): - home regimen: Amlodipine, Coreg, HCTZ - current: Amlodipine and coreg, holding HCTZ due to receiving IVF for angio Diabetes mellitus type 1 06/30/1992 Neuropathy Overview (01/04/2020): left toes Hypercholesteremia CAD (coronary artery disease) Assessment & Plan (03/27/2025 1:49 PM CDT): - Vascular following s/p 03/23 for right femoral to popliteal bypass with graft Plan: - continue on aspirin 81 mg qd, coreg 12.5 mg BID, and home xarelto 2.5 mg BID Continue conservative pain management. Q4h vascular checks - Daily CBC, CMP, Mag, Phos. - wean O2 as tolerated Assessment & Plan (03/26/2025 2:02 PM CDT): - Vascular following s/p 03/23 for right femoral to popliteal bypass with graft Plan: - continue on aspirin 81 mg qd, coreg 12.5 mg BID, and home xarelto 2.5 mg BID - Dilaudid q3h orbm oxy ordered. Deescalate as appropriate. conservative pain management. Q4h vascular checks - Daily CBC, CMP, Mag, Phos. - wean O2 as tolerated Assessment & Plan (03/25/2025 8:28 PM CDT): - Vascular following s/p 03/23 for right femoral to popliteal bypass with graft - continue on aspirin 81 mg qd, coreg 12.5 mg BID, and home xarelto 2.5 mg BID - Dilaudid q3h orbm oxy ordered. Deescalate as appropriate. conservative pain management. Q4h vascular checks - Daily CBC, CMP, Mag, Phos. - wean O2 as tolerated Assessment & Plan (02/04/2020 10:33 AM CDT): Underwent multivessel stenting on December 262019. Left anterior descending coronary artery stented followed by revascularization of a chronic total occlusion to the right coronary artery. Resultant complete revascularization, without residual obstructive coronary artery disease. Currently without significant episodes of angina or anginal-equivalent. Recommend continuation of aspirin and clopidogrel for a total duration of 6 months following the revascularization, basically until the end of 2019. Beginning in June 2020, should continue a baby aspirin daily, no longer requiring clopidogrel. At that time, would recommend ability to list from a renal transplant standpoint, without any further testing or evaluation should he remain asymptomatic with good exertional tolerance. Recommended to him continued physical activity, exercise, healthy diet, and current medications. He should contact us if he has any concerns. CKD (chronic kidney disease) Assessment & Plan (03/27/2025 1:49 PM CDT): - transplanted 05/2024 - Cr 1.63; at baseline, worsening on 03/26/25 with creat 1.93 Plan: - nephrology following, appr help - Continue cinacalcet 30 mg bid , sodium bicarb 1300 bid - continue prednisone 5 mg po daily, mycophenolate 180 mg bid po daily -Tacrolimus level 2.6 today,( goal- 5-8) dose increase to 3 mg po on 03/27 and continue upon discharge -Hold lokelma upon discharge Assessment & Plan (03/26/2025 2:02 PM CDT): - transplanted 05/2024 - Cr 1.63; at baseline, worsening on 03/26/25 with creat 1.93 Plan: - nephrology following, appr help - Continue cinacalcet 30 mg bid , sodium bicarb 1300 bid lokelma 10 mg po daily - continue prednisone 5 mg po daily, mycophenolate 180 mg bid po daily -Tacrolimus level 2.6 today,( goal- 5-8) dose increase to 3 mg po daily Assessment & Plan (03/25/2025 8:28 PM CDT): - transplanted 05/2024 - Continue cinacalcet, sodium bicarb, lokelma - continue prednisone, tacrolimus, mycophenolate - Nephrology consulted - Cr 1.63; at baseline. Multiple organ transplant candidate Overview (01/04/2020): kidney and pancreas Post-op pain Resolved Problems Problem Noted Date Diagnosed Date Resolved Date Restless leg syndrome 03/17/20252024 Assessment & Plan (03/18/2025 2:24 PM CDT): - PAWAN - Ropinirole Assessment & Plan (03/17/2025 8:51 PM CDT): - PAWAN - Ropinirole Coronary artery disease invo lving [place] coronary artery of [place] heart with angina pectoris 12/27/2019 02/04/2020 Encounters Date Type Department Care Team Description 05/06/2025 Orders Only [facility] - Nephrology [address] [place] [phone] Mallorie Guzman RN Kidney transplant recipient ([facility]) ; Type 1 diabetes mellitus with other specified complication ([facility]); At risk for rejection of transplanted organ; Primary hypertension; Peripheral vascular disease; History of immunosuppression 05/05/2025 Results Follow-Up [facility] TRANSPLANT [address] [place] [phone] Uma Bennett RN 05/05/2025 Orders Only [facility] - Nephrology [address] [place] [phone] Mallorie Guzman RN 05/05/2025 Orders Only [facility] - Nephrology [address] [place] [phone] Mallorie Guzman RN Kidney transplant recipient ([facility]); Type 1 diabetes mellitus with other specified complication ([facility]); At risk for rejection of transplanted organ; Primary hypertension; Vitamin D deficiency 05/03/2025 Telephone [facility] - Nephrology [address] [place] [phone] Mallorie Guzman RN Kidney Transplant Follow-up 05/03/2025 Orders Only [facility] - Nephrology [address] [place] [phone] Mallorie Guzman RN Kidney transplant recipient ([facility]) ; Type 1 diabetes mellitus with other specified complication (HCC); At risk for rejection of transplanted organ; Primary hypertension; Vitamin D deficiency 04/29/2025 9:38 AM CDT - 04/29/2025 11:59 PM CDT Hospital Encounter [facility] LAB OP DRAW STATION [address] [place] [address] Tawanda Saavedra MD Discharge Disposition: Home or Self Care 04/29/2025 Travel 04/28/2025 Telephone [facility] - Nephrology [address] [place] [phone] Malloire Guzman RN Kidney Transplant Follow-up 04/25/2025 Telephone [facility] - Nephrology [address] [place] [phone] Mallorie Guzman RN Kidney Transplant Follow-up 04/22/2025 Telephone [facility] - Nephrology [address] [place] [address] [phone] Mallorie Guzman RN Kidney Transplant Follow-up 04/20/2025 10:45 AM CDT Office Visit [facility] - Vascular Surgery [address] [place] [address] [phone] Dolores Edwards MD PAD (peripheral artery disease) (Primary Dx); H/O peripheral artery bypass 04/20/2025 9:10 AM CDT Office Visit [facility] - Nephrology [address] [place] [phone] Tawanda Saavedra MD Kidney transplant recipient (HCC) (Primary Dx); Type 1 diabetes mellitus with other specified complication (HCC); Neuropathy; Peripheral vascular disease; Essential hypertension 04/20/2025 Travel 04/19/2025 Telephone [facility] - Nephrology [address] [place] [phone] Mallorie Guzman RN Kidney Transplant Follow-up 2025 1:00 PM CDT - 2025 11:59 PM CDT Hospital Encounter [facility] VASCULAR US [address] [place] [address] Dolores Edwards MD Discharge Disposition: Home or Self Care 2025 Travel 04/07/2025 11:00 AM CDT - 04/07/2025 11:59 PM CDT Hospital Encounter [facility] VASCULAR US [address] [place] [phone] Dolores Edwards MD Discharge Disposition: Home or Self Care 04/07/2025 Travel 04/06/2025 9:45 AM CDT Office Visit [facility] - Vascular Surgery [address] [place] [phone] Dolores Edwards MD PAD (peripheral artery disease) (Primary Dx) 04/06/2025 9:00 AM CDT - 04/06/2025 11:59 PM CDT Hospital Encounter [facility] LAB OP DRAW STATION [address] [place] [address] Discharge Disposition: Home or Self Care 04/06/2025 Telephone [facility] TRANSPLANT [address] [place] [address] Uma Bennett, ZEINAB Kidney Transplant Follow-up 04/06/2025 Travel 04/05/2025 Telephone [facility] TRANSPLANT [address] [place] [phone] Uma Bennett, RN Kidney Transplant Follow-up 04/05/2025 Travel 03/31/2025 Telephone [facility] TRANSPLANT [address] [place] [address] Uma Bennett, RN Kidney Transplant Follow-up 03/29/2025 Refill [facility] TXP [place] [facility] [address] [place] [address] [place] [phone] Alex Arias MD Refill Request 03/28/2025 Telephone [facility] - Vascular Surgery [address] [place] [phone] Dolores Edwards MD Hospital Discharge 03/28/2025 Telephone [facility] TRANSPLANT [address] [place] [phone] Uma Bennett RN Kidney Transplant Follow-up 03/23/2025 12:21 PM CDT Anesthesia Event [facility] LUIGI OP [address] [place] [address] Christiano Fung MD Keeven, Grace C, JET WIPER-CLOCKMAKER 03/23/2025 11:20 AM CDT - 03/23/2025 2:55 PM CDT Surgery [facility] LU[facility]I OP [address] [place] [address] Dolores Edwards MD Revision of right leg femoral artery to popliteal artery bypass with polytetrafluoroethylene 03/22/2025 9:34 PM CDT - 03/27/2025 3:44 PM CDT Hospital Encounter [facility] 5S ACUTE [address] [place] [address] Jitendra Wilson MD Karches, MD Jani Case Carl M, MD Chinnery, Akrin, MD Ferguson, Keith T, MD Ishiyama, Takaaki, MD Emergency Medicine Discharge Disposition: Home or Self Care 03/22/2025 Travel 03/22/2025 Telephone [facility] - Vascular Surgery [address] [place] [phone] Dolores Edwards MD 03/21/2025 Travel 03/18/2025 8:56 AM CDT Anesthesia Event [facility] LUIGI OP [address] [place] [address] Monique Garcia MD McGee, Jeffrey, [facility] 03/18/2025 7:00 AM CDT - 03/18/2025 9:19 AM CDT Surgery [facility] LUIG[facility] OP [address] [place] [address] Dolores Edwards MD Right leg diagnostic angiogram with CO2 and contrast, left sided access 03/18/2025 Orders Only [facility] - Vascular Surgery [address] [place] [phone] Annalisa Dailey, ZEINAB Claudication in peripheral vascular disease ; Bypass graft stenosis, subsequent encounter 03/17/2025 6:55 PM CDT - 03/18/2025 3:30 PM CDT Hospital Encounter [facility] 6S ACUTE [address] [place] [address] Liu Perez III, MD Albrecht, Ryan, DO Vascular Surgery Discharge Disposition: Home or Self Care 03/17/2025 8:40 AM CDT - 03/17/2025 6:54 PM CDT Hospital Encounter [facility] LAB OP DRAW STATION [address] [place] [address] Aisha Medina APRN-KASSI Discharge Disposition: Home or Self Care 03/17/2025 Travel 03/16/2025 Telephone [facility] TRANSPLANT [address] [place] [address] Uma Bennett, ZEINAB Kidney Transplant Follow-up 03/16/2025 Telephone [facility] - Vascular Surgery [address] [facility] [place] [address] Dolores Edwards MD 03/03/2025 Telephone [facility] TRANSPLANT [address] [place] [address] Uma Bennett, ZEINAB Kidney Transplant Follow-up 03/02/2025 Telephone [facility] TRANSPLANT [address] [place] [address] Uma Bennett RN Kidney Transplant Follow-up 02/25/2025 9:40 AM CDT - 02/25/2025 11:59 PM CDT Hospital Encounter [facility] LAB OP DRAW STATION [address] [place] [address] Discharge Disposition: Home or Self Care 02/25/2025 Travel from Last 3 Months Immunizations Immunization Administration Dates Next Due Covid Pfizer primary monoval ent 12+ yr 0.3mL Purple cap 09/18/2020,08/28/2020 Family History Medical History Relation Name Comments Hypertension Father Cancer - Breast Maternal Grandmother CAD (Coronary Artery Disease) Mother Diabetes - Type 2 Mother Hypertension Mother Cancer - Other Paternal Aunt Relation Name Status Comments Father Alive Maternal Grandmother Mother (Age 58) cardiac di sease, DM, CVA Paternal Aunt Sister 1 Alive Sister 2 Alive Social History Tobacco Use Types Packs/Day Years Used Date Smoking Tobacco: Never Smokeless Tobacco: Never Tobacco Cessation:Counseling Given: Not Answered Alcohol Use Standard Drinks/Week Comments Not Currently [...] and heating? Not hard at all 03/23/2025 [facility] - Occupational Stress [...] place to sleep or slept in a senior care (including now)? No 12/25/2022 Housing Stability Vital Sign Answer Robe e Recorded In the last 12 months, was t here a time when you were not able to pay the mortgage or rent on time? No 03/23/2025 In the past 12 months, how m any times have you moved where you were living? 0 03/23/2025 At any time in the past 12 m [facility], were you homeless or living in a senior care (including now)? No 03/23/2025 Sex and Gender Information Value Date Recorded Sex Assigned at Not on file Legal Sex Male 12:43 PM CDT Gender Identity Not on file Sexual Orientation Not on file Last Filed Vital Signs Vital Sign Reading Time Taken Comments Blood Pressure 153/81 04/20/2025 11:04 AM CDT Pulse 71 04/20/2025 11:04 AM CDT Temperature 37.3 C (99.2 F) 04/20/2025 9:08 AM CDT Respiratory Rate 16 03/27/2025 3:32 AM CDT Oxygen Saturation 98% 04/20/2025 10:59 AM CDT Inhaled Oxygen Concentration 45% 12/29/2019 5 :00 AM CDT Weight 86 kg (189 lb 8 oz) 04/20/2025 10:59 AM C DT Height 175.3 cm (5' 9) 04/20/2025 10:59 AM CDT Body Mass Index 27.98 04/20/2025 10:59 AM CDT Plan of Treatment Upcoming Encounters Date Type Department Care Team (Late st Contact Info) Description 05/31/2025 3:00 PM SEGMENT PRODUCER Office Visit [facility] - Endocrinology [address] [place] [phone] Mihcael Arceo MD [facility] [address] [place] [address] 06/02/2025 1:00 PM SEGMENT PRODUCER Appointment [facility] VASCULAR US [address] [place] [phone] Doolres Edwards MD [address] [place] [address] [address] [place] [phone] 06/02/2025 2:00 PM SEGMENT PRODUCER Appointment [facility] VASCULAR US [address] [place] [phone] Dolores Edwards MD [address] [place] [address] [address] [place] [phone] 06/08/2025 10:45 AM SEGMENT PRODUCER Office Visit [facility] - Vascular Surgery [address] [place] [address], [place] [phone] Dolores Edwards MD [address] [place] [address] [address] [place] [phone] 07/13/2025 9:30 AM SEGMENT PRODUCER Office Visit [facility] - Nephrology [address] [place] [address], [place] [phone] Health Maintenance Due Date Last Done Comments DTAP/TDAP/TD VACCINES (1 - Tdap) 2002 PNEUMOCOCCAL VACCINE (1 of 2 - PCV) 2002 ZOSTER VACCINE (1 of 2) 2002 HEPATITIS B VACCINE (1 of 3 - Risk Dialysis 4-dose series) 2003 HPV VACCINE (1 - Risk 3-dose SCDM series) 2010 DIABETES-FOOT EXAM WITH MONOFILAMENT 01/04/2020 DIABETES RETINOPATHY SCREENING 08/30/2022 08/30/2020, 08/02/2020 DEPRESSION SCREENING 06/30/2024 MEDICARE AWV CALENDAR YEAR 2024 COVID-19 VACCINE ( season) 2025 06/09/2021, 09/18/2020, 08/28/2020 INFLUENZA VACCINE (#1) 2025 , 06/16/2023, 04/25/2022, Additional history exists DIABETES - URINE PROTEIN SCREENING 08/13/2025 08/13/2024 DIABETES-HGB A1C 10/27/2025 04/29/2025, 01/2025, 01/26/2025, Additional history exists DIABETES-SERUM CREATININE 04/29/20262024, 04/06/2025, 03/27/2025, Additional history exists HEPATITIS C SCREENING Completed 06/12/2024 , 05/06/2024, 12/25/2022, Additional history exists HIV SCREENING Completed 06/12/2024, 12/2023, 12/25/2022, Additional history exists HIB VACCINE Aged Out No longer eligi ble based on patient's age to complete this topic MENINGOCOCCAL (Group B) VACCINE SHARED DECISION-MAKING Aged Out No longer eligible based on patient's age to complete this topic MENINGOCOCCAL GROUPS A/C/Y/W VACCINE Aged Out No longer eligible based on patient's age to complete this topic Goals Goal Patient Goal Type Associated Problems Recent Progress Patient-Stated? Author Blood Pressure < 140/90 Blood Pressure 153/81(2024 11:04 AM CDT) Tammy Santiago RN Medical Devices Implanted Type Area Instrumentation And Control Technician Device Identifier Shelf Expiration Date Model / Serial / Lot Graft Sft Tis 80cm 6mm Cryovein Sv [facility] - [id number] Implanted:Qty: 1 on 08/19/2024 by Dolores Edwards MD at [facility] Tissue Right: Arterial [employer] [id number] 12/31/2033 [id number] 80CM / [id number] / Description:RIGHT FEMORAL-PO PLITEAL ARTERY BYPASS TRACK CORE # [id number] Sys Cor Stent Xience Srr 3.5mm 12mm Rap Implanted:Qty: 1 on 12/27/2019 by Jean-Paul Hoffmann MD at [facility] [employer] 08/25/2020 [id number] Description:p RCA Sys Cor Stent Xience Srr 3mm 38mm Rap Ex Implanted:Qty: 1 on 12/27/2019 by Jean-Paul Hoffmann MD at [facility] [employer] 09/19/2020 [id number] Description:m RCA Sys Cor Stent Xience Srr 3.5mm 33mm Rap Implanted:Qty: 1 on 12/27/2019 by Jean-Paul Hoffmann MD at [facility] [employer] 07/18/2020 [id number] Description:m RCA Sys Cor Stent Xience Srr 3mm 23mm Rap Ex Implanted:Qty: 1 on 12/27/2019 by Jean-Paul Hoffmann MD at [facility] [employer] 09/26/2020 [id number] / [id number] Description:m LAD Kit Durathane Drflw Embosafe Chrnc Dlys Implanted:Qty: 1 on 01/17/2022 by Nick Hernandez MD at [facility] Chest Wall [employer] 07/30/2024 [id number] Stent Uret 5fr 12cm 2 Pgtl Crv 2 Drmtr Implanted:Qty: 1 on 06/13/2024 by Alex Arias MD at [facility] N/A: U[employer] [place] [employer] 09/16/2026 [id number] / / [id number] Graft Vasc 6mm 50cm 40cm Hep Propaten - [id number] Implanted:Qty: 1 on 03/23/2025 by Dolores Edwards MD at [facility] Right: Leg [employer] 12/19/2027 [id number] / [id number] / Procedures Procedure Name Priority Date/Time Associated Diagnosis Comments TACROLIMUS LEVEL Routine 04/29/2025 10:31 AM CDT Kidney transplant recipient ([facility]) Encounter for screening for viral disease Encounter for monitoring tacrolimus therapy At risk of UTI (urinary tract infection) At risk for rejection of transplanted organ 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) Anemia due to chronic kidney disease, unspecified CKD stage Prophylactic immunotherapy Hypercholesteremia Low vitamin D level Type 1 diabetes mellitus with diabetic chronic kidney disease, unspecified CKD stage (HCC) Personal history of immunosupression therapy Low blood magnesium level Low phosphate levels Hypertension, unspecified type CBC W AUTO DIFFERENTIAL Routine 04/29/2025 10:31 AM CDT Kidney transplant recipient ([facility]CC) Encounter for screening for viral disease Encounter for monitoring tacrolimus therapy At risk of UTI (urinary tract infection) At risk for rejection of transplanted organ 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) Anemia due to chronic kidney disease, unspecified CKD stage Prophylactic immunotherapy Hypercholesteremia Low vitamin D level Type 1 diabetes mellitus with diabetic chronic kidney disease, unspecified CKD stage (HCC) Personal history of immunosupression therapy Low blood magnesium level Low phosphate levels Hypertension, unspecified type COMPREHENSIVE METABOLIC PANEL Routine 04/29/2025 10:31 AM CDT Kidney transplant recipient ([facility]) Encounter for screening for viral disease Encounter for monitoring tacrolimus therapy At risk of UTI (urinary tract infection) At risk for rejection of transplanted organ 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) Anemia due to chronic kidney disease, unspecified CKD stage Prophylactic immunotherapy Hypercholesteremia Low vitamin D level Type 1 diabetes mellitus with diabetic chronic kidney disease, unspecified CKD stage (HCC) Personal history of immunosupression therapy Low blood magnesium level Low phosphate levels Hypertension, unspecified type MAGNESIUM BLOOD Routine 04/29/2025 10:31 AM CDT Kidney transplant recipient ([facility]) Encounter for screening for viral disease Encounter for monitoring tacrolimus therapy At risk of UTI (urinary tract infection) At risk for rejection of transplanted organ 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) Anemia due to chronic kidney disease, unspecified CKD stage Prophylactic immunotherapy Hypercholesteremia Low vitamin D level Type 1 diabetes mellitus with diabetic chronic kidney disease, unspecified CKD stage (HCC) Personal history of immunosupression therapy Low blood magnesium level Low phosphate levels Hypertension, unspecified type PHOSPHORUS BLOOD Routine 04/29/2025 10:31 AM CDT Kidney transplant recipient ([facility]) Encounter for screening for viral disease Encounter for monitoring tacrolimus therapy At risk of UTI (urinary tract infection) At risk for rejection of transplanted organ 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) Anemia due to chronic kidney disease, unspecified CKD stage Prophylactic immunotherapy Hypercholesteremia Low vitamin D level Type 1 diabetes mellitus with diabetic chronic kidney disease, unspecified CKD stage (HCC) Personal history of immunosupression therapy Low blood magnesium level Low phosphate levels Hypertension, unspecified type VITAMIN D 25-HYDROXY Routine 04/29/2025 10:31 AM CDT Kidney transplant recipient ([facility]) Encounter for screening for viral disease Encounter for monitoring tacrolimus therapy At risk of UTI (urinary tract infection) At risk for rejection of transplanted organ 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) Anemia due to chronic kidney disease, unspecified CKD stage Prophylactic immunotherapy Hypercholesteremia Type 1 diabetes mellitus with diabetic chronic kidney disease, unspecified CKD stage (HCC) URIC ACID BLOOD Routine 04/29/2025 10:31 AM CDT Kidney transplant recipient ([facility]) Encounter for screening for viral disease Encounter for monitoring tacrolimus therapy At risk of UTI (urinary tract infection) At risk for rejection of transplanted organ 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) Anemia due to chronic kidney disease, unspecified CKD stage Prophylactic immunotherapy Hypercholesteremia Type 1 diabetes mellitus with diabetic chronic kidney disease, unspecified CKD stage (HCC) PTH INTACT W/O CALCIUM Routine 04/29/2025 10:31 AM CDT Kidney transplant recipient ([facility]) Encounter for screening for viral disease Encounter for monitoring tacrolimus therapy At risk of UTI (urinary tract infection) At risk for rejection of transplanted organ 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) Anemia due to chronic kidney disease, unspecified CKD stage Prophylactic immunotherapy Hypercholesteremia Type 1 diabetes mellitus with diabetic chronic kidney disease, unspecified CKD stage (HCC) LIPID PROFILE Routine 04/29/2025 10:31 AM CDT Kidney transplant recipient ([facility]) Encounter for screening for viral disease Encounter for monitoring tacrolimus therapy At risk of UTI (urinary tract infection) At risk for rejection of transplanted organ 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) Anemia due to chronic kidney disease, unspecified CKD stage Prophylactic immunotherapy Hypercholesteremia Type 1 diabetes mellitus with diabetic chronic kidney disease, unspecified CKD stage (HCC) IRON + TRANSFERRIN PANEL Routine 04/29/2025 10:31 AM CDT Kidney transplant recipient ([facility]) Encounter for screening for viral disease Encounter for monitoring tacrolimus therapy At risk of UTI (urinary tract infection) At risk for rejection of transplanted organ 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) Anemia due to chronic kidney disease, unspecified CKD stage Prophylactic immunotherapy Hypercholesteremia Type 1 diabetes mellitus with diabetic chronic kidney disease, unspecified CKD stage (HCC) HEPATIC FUNCTION PANEL Routine 04/29/2025 10:31 AM CDT Kidney transplant recipient ([facility]) Encounter for screening for viral disease Encounter for monitoring tacrolimus therapy At risk of UTI (urinary tract infection) At risk for rejection of transplanted organ 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) Anemia due to chronic kidney disease, unspecified CKD stage Prophylactic immunotherapy Hypercholesteremia Type 1 diabetes mellitus with diabetic chronic kidney disease, unspecified CKD stage (HCC) HEMOGLOBIN A1C Routine 04/29/2025 10:31 AM CDT Kidney transplant recipient ([facility]) Encounter for screening for viral disease Encounter for monitoring tacrolimus therapy At risk of UTI (urinary tract infection) At risk for rejection of transplanted organ 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) Anemia due to chronic kidney disease, unspecified CKD stage Prophylactic immunotherapy Hypercholesteremia Type 1 diabetes mellitus with diabetic chronic kidney disease, unspecified CKD stage (HCC) FERRITIN Routine 04/29/2025 10:31 AM CDT Kidney transplant recipient ([facility]) Encounter for screening for viral disease Encounter for monitoring tacrolimus therapy At risk of UTI (urinary tract infection) At risk for rejection of transplanted organ 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) Anemia due to chronic kidney disease, unspecified CKD stage Prophylactic immunotherapy Hypercholesteremia Type 1 diabetes mellitus with diabetic chronic kidney disease, unspecified CKD stage (HCC) BK VIRUS PCR QUANT BLOOD STL Routine 04/29/2025 10:31 AM CDT Kidney transplant recipient 06/13/24 At risk for rejection of transplanted organ CYTOMEGALOVIRUS (CMV) QUANTITATIVE PLASMA Routine 04/29/2025 10:31 AM CDT Kidney transplant recipient ([facility]) Encounter for screening for viral disease Encounter for monitoring tacrolimus therapy At risk of UTI (urinary tract infection) At risk for rejection of transplanted organ 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) Anemia due to chronic kidney disease, unspecified CKD stage Prophylactic immunotherapy Hypercholesteremia Type 1 diabetes mellitus with diabetic chronic kidney disease, unspecified CKD stage (HCC) VAS RIGHT VENOUS DUPLEX LE Routine 2025 2:23 PM CDT Acute deep vein thrombosis (DVT) of right lower extremity, unspecified vein (HCC) VAS ARTERIAL MULTILEVEL LE ALTAF 04/07/2025 11:52 AM CDT PAD (peripheral artery disease) COMPREHENSIVE METABOLIC PANEL Routine 04/06/2025 9:16 AM CDT Kidney transplant recipient ([facility]) Encounter for screening for viral disease Encounter for monitoring tacrolimus therapy At risk of UTI (urinary tract infection) At risk for rejection of transplanted organ 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) Anemia due to chronic kidney disease, unspecified CKD stage Prophylactic immunotherapy Hypercholesteremia Low vitamin D level Type 1 diabetes mellitus with diabetic chronic kidney disease, unspecified CKD stage (HCC) Personal history of immunosupression therapy Low blood magnesium level Low phosphate levels Hypertension, unspecified type VITAMIN D 25-HYDROXY Routine 04/06/2025 9:16 AM CDT Kidney transplant recipient ([facility]) Encounter for screening for viral disease Encounter for monitoring tacrolimus therapy At risk of UTI (urinary tract infection) At risk for rejection of transplanted organ 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) Anemia due to chronic kidney disease, unspecified CKD stage Prophylactic immunotherapy Hypercholesteremia Type 1 diabetes mellitus with diabetic chronic kidney disease, unspecified CKD stage (HCC) URIC ACID BLOOD Routine 04/06/2025 9:16 AM CDT Kidney transplant recipient ([facility]) Encounter for screening for viral disease Encounter for monitoring tacrolimus therapy At risk of UTI (urinary tract infection) At risk for rejection of transplanted organ 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) Anemia due to chronic kidney disease, unspecified CKD stage Prophylactic immunotherapy Hypercholesteremia Type 1 diabetes mellitus with diabetic chronic kidney disease, unspecified CKD stage (HCC) PTH INTACT W/O CALCIUM Routine 04/06/2025 9:16 AM CDT Kidney transplant recipient ([facility]) Encounter for screening for viral disease Encounter for monitoring tacrolimus therapy At risk of UTI (urinary tract infection) At risk for rejection of transplanted organ 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) Anemia due to chronic kidney disease, unspecified CKD stage Prophylactic immunotherapy Hypercholesteremia Type 1 diabetes mellitus with diabetic chronic kidney disease, unspecified CKD stage (HCC) LIPID PROFILE Routine 04/06/2025 9:16 AM CDT Kidney transplant recipient ([facility]) Encounter for screening for viral disease Encounter for monitoring tacrolimus therapy At risk of UTI (urinary tract infection) At risk for rejection of transplanted organ 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) Anemia due to chronic kidney disease, unspecified CKD stage Prophylactic immunotherapy Hypercholesteremia Type 1 diabetes mellitus with diabetic chronic kidney disease, unspecified CKD stage (HCC) IRON + TRANSFERRIN PANEL Routine 04/06/2025 9:16 AM CDT Kidney transplant recipient ([facility]) Encounter for screening for viral disease Encounter for monitoring tacrolimus therapy At risk of UTI (urinary tract infection) At risk for rejection of transplanted organ 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) Anemia due to chronic kidney disease, unspecified CKD stage Prophylactic immunotherapy Hypercholesteremia Type 1 diabetes mellitus with diabetic chronic kidney disease, unspecified CKD stage (HCC) HEPATIC FUNCTION PANEL Routine 04/06/2025 9:16 AM CDT Kidney transplant recipient ([facility]) Encounter for screening for viral disease Encounter for monitoring tacrolimus therapy At risk of UTI (urinary tract infection) At risk for rejection of transplanted organ 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) Anemia due to chronic kidney disease, unspecified CKD stage Prophylactic immunotherapy Hypercholesteremia Type 1 diabetes mellitus with diabetic chronic kidney disease, unspecified CKD stage (HCC) HEMOGLOBIN A1C Routine 04/06/2025 9:16 AM CDT Kidney transplant recipient ([facility]) Encounter for screening for viral disease Encounter for monitoring tacrolimus therapy At risk of UTI (urinary tract infection) At risk for rejection of transplanted organ 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) Anemia due to chronic kidney disease, unspecified CKD stage Prophylactic immunotherapy Hypercholesteremia Type 1 diabetes mellitus with diabetic chronic kidney disease, unspecified CKD stage (HCC) FERRITIN Routine 04/06/2025 9:16 AM CDT Kidney transplant recipient ([facility]) Encounter for screening for viral disease Encounter for monitoring tacrolimus therapy At risk of UTI (urinary tract infection) At risk for rejection of transplanted organ 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) Anemia due to chronic kidney disease, unspecified CKD stage Prophylactic immunotherapy Hypercholesteremia Type 1 diabetes mellitus with diabetic chronic kidney disease, unspecified CKD stage (HCC) CYTOMEGALOVIRUS (CMV) QUANTITATIVE PLASMA Routine 04/06/2025 9:16 AM CDT Kidney transplant recipient ([facility]CC) Encounter for screening for viral disease Encounter for monitoring tacrolimus therapy At risk of UTI (urinary tract infection) At risk for rejection of transplanted organ 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) Anemia due to chronic kidney disease, unspecified CKD stage Prophylactic immunotherapy Hypercholesteremia Type 1 diabetes mellitus with diabetic chronic kidney disease, unspecified CKD stage (HCC) TACROLIMUS LEVEL Routine 03/27/2025 6:03 AM CDT CBC W/O DIFFERENTIAL AM Draw 03/27/2025 6:03 AM CDT COMPREHENSIVE METABOLIC PANEL AM Draw 03/27/2025 6:03 AM CDT MAGNESIUM BLOOD AM Draw 03/27/2025 6:03 AM CDT PHOSPHORUS BLOOD AM Draw 03/27/2025 6:03 AM CDT GLUCOSE - POINT OF CARE Routine 03/26/2025 11:59 AM CDT GLUCOSE - POINT OF CARE Routine 03/26/2025 10:19 AM CDT GLUCOSE - POINT OF CARE Routine 03/26/2025 8:39 AM CDT GLUCOSE - POINT OF CARE Routine 03/26/2025 6:38 AM CDT TACROLIMUS LEVEL Routine 03/26/2025 4:39 AM CDT CBC W/O DIFFERENTIAL AM Draw 03/26/2025 4:39 AM CDT COMPREHENSIVE METABOLIC PANEL AM Draw 03/26/2025 4:39 AM CDT MAGNESIUM BLOOD AM Draw 03/26/2025 4:39 AM CDT PHOSPHORUS BLOOD AM Draw 03/26/2025 4:39 AM CDT GLUCOSE - POINT OF CARE Routine 03/26/2025 2:43 AM CDT GLUCOSE - POINT OF CARE Routine 03/26/2025 12:51 AM CDT GLUCOSE - POINT OF CARE Routine 03/26/2025 12:08 AM CDT GLUCOSE - POINT OF CARE Routine 03/25/2025 10:58 PM CDT GLUCOSE - POINT OF CARE Routine 03/25/2025 6:08 PM CDT BLOOD GASES INGRID + COOX PANEL Routine 03/25/2025 3:30 PM CDT XR CHEST 1VW PORTABLE STAT 03/25/2025 2:56 PM CDT Hypoxia GLUCOSE - POINT OF CARE Routine 03/25/2025 2:09 PM CDT GLUCOSE - POINT OF CARE Routine 03/25/2025 11:44 AM CDT GLUCOSE - POINT OF CARE Routine 03/25/2025 9:22 AM CDT GLUCOSE - POINT OF CARE Routine 03/25/2025 6:55 AM CDT TACROLIMUS LEVEL Routine 03/25/2025 3:34 AM CDT CBC W/O DIFFERENTIAL AM Draw 03/25/2025 3:34 AM CDT COMPREHENSIVE METABOLIC PANEL AM Draw 03/25/2025 3:34 AM CDT MAGNESIUM BLOOD AM Draw 03/25/2025 3:34 AM CDT PHOSPHORUS BLOOD AM Draw 03/25/2025 3:34 AM CDT GLUCOSE - POINT OF CARE Routine 03/24/2025 10:04 PM CDT GLUCOSE - POINT OF CARE Routine 03/24/2025 6:16 PM CDT GLUCOSE - POINT OF CARE Routine 03/24/2025 1:00 PM CDT GLUCOSE - POINT OF CARE Routine 03/24/2025 8:37 AM CDT GLUCOSE - POINT OF CARE Routine 03/24/2025 4:15 AM CDT TACROLIMUS LEVEL Routine 03/24/2025 4:13 AM CDT CBC W/O DIFFERENTIAL AM Draw 03/24/2025 4:13 AM CDT COMPREHENSIVE METABOLIC PANEL AM Draw 03/24/2025 4:13 AM CDT MAGNESIUM BLOOD AM Draw 03/24/2025 4:13 AM CDT PHOSPHORUS BLOOD AM Draw 03/24/2025 4:13 AM CDT GLUCOSE - POINT OF CARE Routine 03/23/2025 11:56 PM CDT GLUCOSE - POINT OF CARE Routine 03/23/2025 8:34 PM CDT PHOSPHORUS BLOOD STAT 03/23/2025 5:48 PM CDT MAGNESIUM BLOOD STAT 03/23/2025 5:48 PM CDT CBC W/O DIFFERENTIAL STAT 03/23/2025 5:48 PM CDT COMPREHENSIVE METABOLIC PANEL STAT 03/23/2025 5:48 PM CDT GLUCOSE - POINT OF CARE Routine 03/23/2025 5:47 PM CDT CULTURE TISSUE+GRAM STAIN Routine 03/23/2025 5:17 PM CDT CULTURE ANAEROBE Routine 03/23/2025 5:07 PM CDT GLUCOSE - POINT OF CARE Routine 03/23/2025 3:47 PM CDT ACT LR - POCT ([facility]) Routine 03/23/2025 3:24 PM CDT GLUCOSE - POINT OF CARE Routine 03/23/2025 2:55 PM CDT ACT LR - POCT ([facility]) Routine 03/23/2025 2:51 PM CDT CENTRAL LINE NOTE Routine 03/23/2025 1:41 PM CDT ENDOTRACHEAL TUBE NOTE Routine 03/23/2025 1:27 PM CDT BLOOD GAS+COOX+LYTES+METAB VENOUS POCT Routine 03/23/2025 1:25 PM CDT TN BYPASS GRAFT OTHR,FEM-POP 03/23/2025 12:05 PM CDT Claudication in peripheral vascular disease Bypass graft stenosis, subsequent encounter GLUCOSE - POINT OF CARE Routine 03/23/2025 11:10 AM CDT GLUCOSE - POINT OF CARE Routine 03/23/2025 10:25 AM CDT EKG 12-LEAD STAT 03/23/2025 10:22 AM CDT PAD (peripheral artery disease) Claudication of right lower extremity GLUCOSE - POINT OF CARE Routine 03/23/2025 8:37 AM CDT GLUCOSE - POINT OF CARE Routine 03/23/2025 6:48 AM CDT CBC W/O DIFFERENTIAL STAT 03/23/2025 3:53 AM CDT COMPREHENSIVE METABOLIC PANEL STAT 03/23/2025 3:53 AM CDT MAGNESIUM BLOOD STAT 03/23/2025 3:53 AM CDT PHOSPHORUS BLOOD STAT 03/23/2025 3:53 AM CDT TACROLIMUS LEVEL STAT 03/23/2025 3:53 AM CDT GLUCOSE - POINT OF CARE Routine 03/23/2025 3:05 AM CDT PREPARE RBC LEUKOREDUCED UNIT STAT 03/22/2025 11:28 PM CDT TYPE + SCREEN PANEL STAT 03/22/2025 11:28 PM CDT PT-INR STAT 03/22/2025 9:07 PM CDT COMPREHENSIVE METABOLIC PANEL STAT 03/22/2025 9:07 PM CDT CBC W AUTO DIFFERENTIAL STAT 03/22/2025 9:07 PM CDT GLUCOSE - POINT OF CARE Routine 03/18/2025 11:50 AM CDT GLUCOSE - POINT OF CARE Routine 03/18/2025 10:24 AM CDT FL DONNIE W ANGIO TEAM Routine 03/18/2025 10:00 AM CDT PAD (peripheral artery disease) ARTERIAL LINE NOTE Routine 03/18/2025 9:32 AM CDT ENDOTRACHEAL TUBE NOTE Routine 03/18/2025 9:31 AM CDT TN ILIAC REVASC W/STENT 03/18/2025 8:26 AM CDT Bypass graft stenosis, subsequent encounter PAD (peripheral artery disease) Case Notes admit date: 03/17/2025 to start IV hydration Special Needs angio ordered 03/01/25 [facility] GLUCOSE - POINT OF CARE Routine 03/18/2025 6:43 AM CDT GLUCOSE - POINT OF CARE Routine 03/18/2025 4:55 AM CDT TACROLIMUS LEVEL AM Draw 03/18/2025 4:41 AM CDT PHOSPHORUS BLOOD Routine 03/18/2025 4:41 AM CDT CBC W/O DIFFERENTIAL Routine 03/18/2025 4:41 AM CDT BASIC METABOLIC PANEL (CALCIUM TOTAL) Routine 03/18/2025 4:41 AM CDT GLUCOSE - POINT OF CARE Routine 03/18/2025 1:05 AM CDT TYPE + SCREEN PANEL Routine 03/17/2025 8:57 PM CDT MAGNESIUM BLOOD Routine 03/17/2025 8:57 PM CDT CBC W/O DIFFERENTIAL STAT 03/17/2025 8:57 PM CDT BASIC METABOLIC PANEL (CALCIUM TOTAL) STAT 03/17/2025 8:57 PM CDT CREATININE URINE RANDOM Routine 03/17/2025 9:00 AM CDT Kidney transplant recipient ([facility]) Encounter for screening for viral disease Encounter for monitoring tacrolimus therapy At risk of UTI (urinary tract infection) At risk for rejection of transplanted organ 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) Anemia due to chronic kidney disease, unspecified CKD stage Prophylactic immunotherapy Hypercholesteremia Low vitamin D level Type 1 diabetes mellitus with diabetic chronic kidney disease, unspecified CKD stage (HCC) Personal history of immunosupression therapy Low blood magnesium level Low phosphate levels Hypertension, unspecified type PROTEIN URINE RANDOM QUANTITATIVE Routine 03/17/2025 9:00 AM CDT Kidney transplant recipient ([facility]) Encounter for screening for viral disease Encounter for monitoring tacrolimus therapy At risk of UTI (urinary tract infection) At risk for rejection of transplanted organ 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) Anemia due to chronic kidney disease, unspecified CKD stage Prophylactic immunotherapy Hypercholesteremia Low vitamin D level Type 1 diabetes mellitus with diabetic chronic kidney disease, unspecified CKD stage (HCC) Personal history of immunosupression therapy Low blood magnesium level Low phosphate levels Hypertension, unspecified type URINALYSIS W/MICROSCOPIC NO CULTURE Routine 03/17/2025 9:00 AM CDT Kidney transplant recipient ([facility]) Encounter for screening for viral disease Encounter for monitoring tacrolimus therapy At risk of UTI (urinary tract infection) At risk for rejection of transplanted organ 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) Anemia due to chronic kidney disease, unspecified CKD stage Prophylactic immunotherapy Hypercholesteremia Low vitamin D level Type 1 diabetes mellitus with diabetic chronic kidney disease, unspecified CKD stage (HCC) Personal history of immunosupression therapy Low blood magnesium level Low phosphate levels Hypertension, unspecified type PHOSPHORUS BLOOD Routine 03/17/2025 9:00 AM CDT Kidney transplant recipient ([facility]) Encounter for screening for viral disease Encounter for monitoring tacrolimus therapy At risk of UTI (urinary tract infection) At risk for rejection of transplanted organ 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) Anemia due to chronic kidney disease, unspecified CKD stage Prophylactic immunotherapy Hypercholesteremia Low vitamin D level Type 1 diabetes mellitus with diabetic chronic kidney disease, unspecified CKD stage (HCC) Personal history of immunosupression therapy Low blood magnesium level Low phosphate levels Hypertension, unspecified type MAGNESIUM BLOOD Routine 03/17/2025 9:00 AM CDT Kidney transplant recipient ([facility]) Encounter for screening for viral disease Encounter for monitoring tacrolimus therapy At risk of UTI (urinary tract infection) At risk for rejection of transplanted organ 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) Anemia due to chronic kidney disease, unspecified CKD stage Prophylactic immunotherapy Hypercholesteremia Low vitamin D level Type 1 diabetes mellitus with diabetic chronic kidney disease, unspecified CKD stage (HCC) Personal history of immunosupression therapy Low blood magnesium level Low phosphate levels Hypertension, unspecified type COMPREHENSIVE METABOLIC PANEL Routine 03/17/2025 9:00 AM CDT Kidney transplant recipient ([facility]) Encounter for screening for viral disease Encounter for monitoring tacrolimus therapy At risk of UTI (urinary tract infection) At risk for rejection of transplanted organ 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) Anemia due to chronic kidney disease, unspecified CKD stage Prophylactic immunotherapy Hypercholesteremia Low vitamin D level Type 1 diabetes mellitus with diabetic chronic kidney disease, unspecified CKD stage (HCC) Personal history of immunosupression therapy Low blood magnesium level Low phosphate levels Hypertension, unspecified type CBC W AUTO DIFFERENTIAL Routine 03/17/2025 9:00 AM CDT Kidney transplant recipient ([facility]) Encounter for screening for viral disease Encounter for monitoring tacrolimus therapy At risk of UTI (urinary tract infection) At risk for rejection of transplanted organ 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) Anemia due to chronic kidney disease, unspecified CKD stage Prophylactic immunotherapy Hypercholesteremia Low vitamin D level Type 1 diabetes mellitus with diabetic chronic kidney disease, unspecified CKD stage (HCC) Personal history of immunosupression therapy Low blood magnesium level Low phosphate levels Hypertension, unspecified type TACROLIMUS LEVEL Routine 03/17/2025 9:00 AM CDT Kidney transplant recipient ([facility]) Encounter for screening for viral disease Encounter for monitoring tacrolimus therapy At risk of UTI (urinary tract infection) At risk for rejection of transplanted organ 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) Anemia due to chronic kidney disease, unspecified CKD stage Prophylactic immunotherapy Hypercholesteremia Low vitamin D level Type 1 diabetes mellitus with diabetic chronic kidney disease, unspecified CKD stage (HCC) Personal history of immunosupression therapy Low blood magnesium level Low phosphate levels Hypertension, unspecified type CYTOMEGALOVIRUS QUAL PCR Routine 03/17/2025 9:00 AM CDT Kidney transplant recipient ([facility]) Encounter for screening for viral disease Encounter for monitoring tacrolimus therapy At risk of UTI (urinary tract infection) At risk for rejection of transplanted organ 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) Anemia due to chronic kidney disease, unspecified CKD stage Prophylactic immunotherapy Hypercholesteremia Low vitamin D level Type 1 diabetes mellitus with diabetic chronic kidney disease, unspecified CKD stage (HCC) Personal history of immunosupression therapy Low blood magnesium level Low phosphate levels Hypertension, unspecified type BK VIRUS PCR QUANT BLOOD STL Routine 03/17/2025 9:00 AM CDT Kidney transplant recipient 06/13/24 At risk for rejection of transplanted organ CULTURE URINE Routine 03/17/2025 9:00 AM CDT Kidney transplant recipient ([facility]) Encounter for screening for viral disease Encounter for monitoring tacrolimus therapy At risk of UTI (urinary tract infection) At risk for rejection of transplanted organ 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) Anemia due to chronic kidney disease, unspecified CKD stage Prophylactic immunotherapy Hypercholesteremia Low vitamin D level Type 1 diabetes mellitus with diabetic chronic kidney disease, unspecified CKD stage (HCC) Personal history of immunosupression therapy Low blood magnesium level Low phosphate levels Hypertension, unspecified type CARDIAC EKG ORDER 03/08/2025 8:54 AM CDT CREATININE URINE RANDOM Routine 02/25/2025 10:20 AM CDT Kidney transplant recipient ([facility]) Encounter for screening for viral disease Encounter for monitoring tacrolimus therapy At risk of UTI (urinary tract infection) At risk for rejection of transplanted organ 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) Anemia due to chronic kidney disease, unspecified CKD stage Prophylactic immunotherapy Hypercholesteremia Low vitamin D level Type 1 diabetes mellitus with diabetic chronic kidney disease, unspecified CKD stage (HCC) Personal history of immunosupression therapy Low blood magnesium level Low phosphate levels Hypertension, unspecified type PROTEIN URINE RANDOM QUANTITATIVE Routine 02/25/2025 10:20 AM CDT Kidney transplant recipient ([facility]) Encounter for screening for viral disease Encounter for monitoring tacrolimus therapy At risk of UTI (urinary tract infection) At risk for rejection of transplanted organ 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) Anemia due to chronic kidney disease, unspecified CKD stage Prophylactic immunotherapy Hypercholesteremia Low vitamin D level Type 1 diabetes mellitus with diabetic chronic kidney disease, unspecified CKD stage (HCC) Personal history of immunosupression therapy Low blood magnesium level Low phosphate levels Hypertension, unspecified type URINALYSIS W/MICROSCOPIC NO CULTURE Routine 02/25/2025 10:20 AM CDT Kidney transplant recipient ([facility]) Encounter for screening for viral disease Encounter for monitoring tacrolimus therapy At risk of UTI (urinary tract infection) At risk for rejection of transplanted organ 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) Anemia due to chronic kidney disease, unspecified CKD stage Prophylactic immunotherapy Hypercholesteremia Low vitamin D level Type 1 diabetes mellitus with diabetic chronic kidney disease, unspecified CKD stage (HCC) Personal history of immunosupression therapy Low blood magnesium level Low phosphate levels Hypertension, unspecified type CULTURE URINE Routine 02/25/2025 10:20 AM CDT Kidney transplant recipient ([facility]) Encounter for screening for viral disease Encounter for monitoring tacrolimus therapy At risk of UTI (urinary tract infection) At risk for rejection of transplanted organ 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) Anemia due to chronic kidney disease, unspecified CKD stage Prophylactic immunotherapy Hypercholesteremia Low vitamin D level Type 1 diabetes mellitus with diabetic chronic kidney disease, unspecified CKD stage (HCC) Personal history of immunosupression therapy Low blood magnesium level Low phosphate levels Hypertension, unspecified type PHOSPHORUS BLOOD Routine 02/25/2025 10:01 AM CDT Kidney transplant recipient ([facility]) Encounter for screening for viral disease Encounter for monitoring tacrolimus therapy At risk of UTI (urinary tract infection) At risk for rejection of transplanted organ 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) Anemia due to chronic kidney disease, unspecified CKD stage Prophylactic immunotherapy Hypercholesteremia Low vitamin D level Type 1 diabetes mellitus with diabetic chronic kidney disease, unspecified CKD stage (HCC) Personal history of immunosupression therapy Low blood magnesium level Low phosphate levels Hypertension, unspecified type MAGNESIUM BLOOD Routine 02/25/2025 10:01 AM CDT Kidney transplant recipient ([facility]) Encounter for screening for viral disease Encounter for monitoring tacrolimus therapy At risk of UTI (urinary tract infection) At risk for rejection of transplanted organ 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) Anemia due to chronic kidney disease, unspecified CKD stage Prophylactic immunotherapy Hypercholesteremia Low vitamin D level Type 1 diabetes mellitus with diabetic chronic kidney disease, unspecified CKD stage (HCC) Personal history of immunosupression therapy Low blood magnesium level Low phosphate levels Hypertension, unspecified type COMPREHENSIVE METABOLIC PANEL Routine 02/25/2025 10:01 AM CDT Kidney transplant recipient ([facility]) Encounter for screening for viral disease Encounter for monitoring tacrolimus therapy At risk of UTI (urinary tract infection) At risk for rejection of transplanted organ 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) Anemia due to chronic kidney disease, unspecified CKD stage Prophylactic immunotherapy Hypercholesteremia Low vitamin D level Type 1 diabetes mellitus with diabetic chronic kidney disease, unspecified CKD stage (HCC) Personal history of immunosupression therapy Low blood magnesium level Low phosphate levels Hypertension, unspecified type CBC W AUTO DIFFERENTIAL Routine 02/25/2025 10:01 AM CDT Kidney transplant recipient ([facility]) Encounter for screening for viral disease Encounter for monitoring tacrolimus therapy At risk of UTI (urinary tract infection) At risk for rejection of transplanted organ 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) Anemia due to chronic kidney disease, unspecified CKD stage Prophylactic immunotherapy Hypercholesteremia Low vitamin D level Type 1 diabetes mellitus with diabetic chronic kidney disease, unspecified CKD stage (HCC) Personal history of immunosupression therapy Low blood magnesium level Low phosphate levels Hypertension, unspecified type TACROLIMUS LEVEL Routine 02/25/2025 10:01 AM CDT Kidney transplant recipient ([facility]) Encounter for screening for viral disease Encounter for monitoring tacrolimus therapy At risk of UTI (urinary tract infection) At risk for rejection of transplanted organ 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) Anemia due to chronic kidney disease, unspecified CKD stage Prophylactic immunotherapy Hypercholesteremia Low vitamin D level Type 1 diabetes mellitus with diabetic chronic kidney disease, unspecified CKD stage (HCC) Personal history of immunosupression therapy Low blood magnesium level Low phosphate levels Hypertension, unspecified type CYTOMEGALOVIRUS QUAL PCR Routine 02/25/2025 10:01 AM CDT Kidney transplant recipient ([facility]) Encounter for screening for viral disease Encounter for monitoring tacrolimus therapy At risk of UTI (urinary tract infection) At risk for rejection of transplanted organ 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) Anemia due to chronic kidney disease, unspecified CKD stage Prophylactic immunotherapy Hypercholesteremia Low vitamin D level Type 1 diabetes mellitus with diabetic chronic kidney disease, unspecified CKD stage (HCC) Personal history of immunosupression therapy Low blood magnesium level Low phosphate levels Hypertension, unspecified type BK VIRUS PCR QUANT BLOOD STL Routine 02/25/2025 10:01 AM CDT Kidney transplant recipient 06/13/24 At risk for rejection of transplanted organ PROTEIN CREATININE RATIO URINE RANDOM PNL Routine 08/13/2024 9:31 AM SEGMENT PRODUCER Type 1 diabetes mellitus with other specified complication Hypercholesteremia Primary hypertension Pre-transplant evaluation for kidney and pancreas transplant HEPATITIS C RNA QUANTITATIVE Routine 06/12/2024 4:21 AM SEGMENT PRODUCER Kidney transplant recipient HIV-1 HIV-2 ANTIBODY + HIV P24 AG PANEL Routine 06/12/2024 4:21 AM SEGMENT PRODUCER Kidney transplant recipient from Last 3 Months or Most Recently Relevant to Health Maintenance Results * CYTOMEGALOVIRUS (CMV) QUANTITATIVE PLASMA (04/29/2025 10:31 AM CDT) Only the most recent of2 resultswithin the time period is included. CMV Quant by PCR, Interp Not detected Not detected 04/30/2025 5:52 AM CDT [facility] CMV Quant by PCR, Log NA log IU/mL 04/30/2025 5:52 AM T [facility] Blood BLOOD SPECIMEN / Unknown Lab Venipuncture / Unknown 04/29/2025 10:31 AM CDT 04/29/2025 10:39 AM CDT Narrative [facility] - 04/30/2025 5:52 AM CDT The Cytomegalovirus (CMV) DNA analysis utilized a plasma sample, real-time PCR (qPCR), and is reported as Not Detected, Detected (<35 IU/mL), 35 - 10,000,000 IU/mL, or >10,000,000 IU/mL The analytic sensitivity (LOD) of the assay is 35 IU/mL. Linear range of the assay is 35 - 10,000,000 IU/ml. The detection/quantitation of CMV DNA in plasma is based on the isolation of CMV DNA followed by real-time PCR in the presence of an unrelated DNA internal control. The internal control ensures that DNA is isolated, and that no general significant inhibitors of the qPCR process are present. Absolute CMV values or breakpoints for symptomatic disease have not been established and appear to be different between patient populations and laboratories. Therefore, it is important to monitor patients and to follow increases and/or decreases in the level of CMV in multiple blood specimens.. The analysis was performed using a U.S. FDA approved test methodology Josee violeta CMV. Tawanda Saavedra MD LAB - CHEMISTRY ORDERABLES F inal Result [facility] [address] [place] [address], [facility] [phone] * BK VIRUS QUANT PCR PLASMA STL (04/29/2025 10:31 AM CDT) Only the most recent of3 resultswithin the time period is included. BK Virus Quant by PCR, Interp Not detected Not detected 05/03/2025 5:07 AM [facility] Specimen Type Plasma 05/03/2025 5:07 AM [facility] BK Virus Quant by PCR, Log NA log IU/mL 05/03/2025 5:07 AM [facility] Blood BLOOD SPECIMEN / Unknown Lab Venipuncture / Unknown 04/29/2025 10:31 AM CDT 05/02/2025 9:29 AM SEGMENT PRODUCER Narrative [facility] - 05/03/2025 5:07 AM SEGMENT PRODUCER The BK viral (BKV) DNA analysis utilized a serum sample, real-time PCR (qPCR), and is reported as Not Detected, Detected (<22 IU/mL), Quantity (IU/mL) or >100,000,000 IU/mL. The analytic sensitivity (LOD) of the assay is 22 IU/mL. The linear range is from 22 IU/mL to 100,000,000 IU/mL. Values less than 22 IU/mL are reported as Detected (<22 IU/mL). Values greater than 100,000,000 IU/mL are reported as >100,000,000 IU/mL. The detection/quantitation of BKV DNA in plasma is based on the isolation of BKV DNA followed by real-time PCR in the presence of an unrelated DNA internal control. The internal control ensures that DNA is isolated, and that no general significant inhibitors of the qPCR process are present. The analysis was performed using a U.S. FDA approved test methodology Josee violeta BKV . Tawanda Saavedra MD LAB - CHEMISTRY ORDERABLES F inal Result [facility] [address] [place] [address], [facility] [phone] * (ABNORMAL) PTH INTACT W/O CALCIUM (04/29/2025 10:31 AM CDT) Only the most recent of2 resultswithin the time period is included. PTH Intact 188.8(H) 8.0 - 77.0 pg/mL 04/29/2025 11:12 AM CDT [facility] Blood BLOOD SPECIMEN / Unknown Lab Venipuncture / Unknown 04/29/2025 10:31 AM CDT 04/29/2025 10:42 AM CDT Tawanda Saavedra MD LAB - CHEMISTRY ORDERABLES F inal Result Performing Organization Address [facility] Co de Phone Number [address] [address], [place] [phone] * URIC ACID BLOOD (04/29/2025 10:31 AM CDT) Only the most recent of2 resultswithin the time period is included. Uric Acid 6.1 3.5 - 7.2 mg/dL 04/29/2025 11:11 AM CDT [facility] Blood BLOOD SPECIMEN / Unknown Lab Venipuncture / Unknown 04/29/2025 10:31 AM CDT 04/29/2025 10:42 AM CDT Tawanda Saavedra MD LAB - CHEMISTRY ORDERABLES F inal Result Performing Organization Address City/[facility]/ZIP Co de Phone Number [address] [address], [place] [phone] * TACROLIMUS LEVEL (04/29/2025 10:31 AM CDT) Only the most recent of9 resultswithin the time period is included. Tacrolimus, trough 9.7 3.0 - 15.0 ng/mL 05/02/2025 3:13 PM SEGMENT PRODUCER [facility] Blood BLOOD SPECIMEN / Unknown Lab Venipuncture / Unknown 04/29/2025 10:31 AM CDT 05/02/2025 9:29 AM SEGMENT PRODUCER Narrative [facility] - 05/02/2025 3:13 PM SEGMENT PRODUCER Measurement performed by chemiluminescence immunoassay (CMIA) on the Flexionnity analyzer. Most individuals achieve optimal response with steady-state trough whole blood levels between 3-15 ng/mL. Preferred therapeutic values may vary by transplant type, protocol, and comedications. Therapeutic concentrations are based on trough values; blood drawn at other times may yield higher results. Tawanda Saavedra MD LAB - THERAPEUTIC DRUG MONIT ORING ORDERABLES Final Result [address] [address], [facility] [phone] * (ABNORMAL) HEMOGLOBIN A1C (04/29/2025 10:31 AM CDT) Only the most recent of2 resultswithin the time period is included. Pathologist [facility] Hemoglobin A1c 6.4(H) <=5.6 % 04/29/2025 1:06 PM [facility] Estimated Average Glucose 137 mg/dL 04/29/2025 1:06 PM [facility] Comment: HbA1c Interpretation: Normal : < 5.7% Pre-diabetes: 5.7-6.4% Diabetes: Equal to or greater than 6.5% Test results diagnostic of diabetes should be repeated for confirmation. Treatment target values recommended by ADA and other clinical organizations should be used to evaluate metabolic control in patients. Reference: [place] Diabetes Association, Standards of Care in Diabetes -2020 In patients 70 years and older consider HbA1c target range of 7.0-7.5% (Reference: Richardson Chambers et al. JAMDA. 2012) The Sebia assay for the measurement of HbA1c is a National Glycohemoglobin Standardization Program (NGSP) certified method. Blood BLOOD SPECIMEN / Unknown Lab Venipuncture / Unknown 04/29/2025 10:31 AM CDT 04/29/2025 10:42 AM CDT Tawanda Saavedra MD LAB - CHEMISTRY ORDERABLES F inal Result Performing Organization Address City/[facility]/ZIP Co de Phone Number [address] [address], [facility] [phone] * (ABNORMAL) VITAMIN D 25-HYDROXY (04/29/2025 10:31 AM CDT) Only the most recent of2 resultswithin the time period is included. Vitamin D, 25 Hydroxy 21.9(L) 30.0 - 80.0 ng/mL 04/29/2025 11:28 AM CDT [facility] Comment: The recommendations for 25-Hydroxy Vitamin D clinical decision points are as follows: Deficient: <20.0 ng/mL Insufficient: 20.0 - 29.9 ng/mL Sufficient: 30.0 - 100.0 ng/mL Potential Toxicity: >100 ng/mL Reference: The Endocrine Society Clinical Practice Guidelines. 2011 If the 25-Hydroxy Vitamin D results are inconsitent with clinical evidence, it is recommended that follow-up testing using a method such as LC/MS/MS be performed to confirm the result. Blood BLOOD SPECIMEN / Unknown Lab Venipuncture / Unknown 04/29/2025 10:31 AM CDT 04/29/2025 10:42 AM CDT Tawanda Saavedra MD LAB - CHEMISTRY ORDERABLES F inal Result [address] [address], [place] [phone] * (ABNORMAL) CBC W AUTO DIFFERENTIAL (04/29/2025 10:31 AM CDT) Only the most recent of4 resultswithin the time period is included. WBC 8.7 4.0 - 10.7 x10E9/L 05/02/2025 9:38 AM [facility] RBC Count 5.05 4.30 - 5.80 x10E12/L 05/02/2025 9:38 AM [facility] Hemoglobin 14.7 13.3 - 17.5 g/dL 05/02/2025 9:38 AM [facility] Hematocrit 47.7 38.7 - 51.1 % 05/02/2025 9:38 AM [facility] MCV 94.5 80.0 - 98.0 fL 05/02/2025 9:38 AM [facility] MCH 29.1 26.7 - 33.6 pg 05/02/2025 9:38 AM [facility] MCHC 30.8(L) 31.7 - 36.3 g/dL 05/02/2025 9:38 AM [facility] RDW-CV 14.0 11.3 - 14.8 % 05/02/2025 9:38 AM [facility] Platelet Count 237 150 - 420 x10E9/L 05/02/2025 9:38 AM [facility] MPV 12.5(H) 7.8 - 11.4 fL 05/02/2025 9:38 AM [facility] Neutrophil % 68.9 41.0 - 74.0 % 05/02/2025 9:38 AM [facility] Lymphocyte % 17.4 17.0 - 47.0 % 05/02/2025 9:38 AM [facility] Monocyte % 10.1 3.0 - 11.0 % 05/02/2025 9:38 AM [facility] Eosinophil % 1.8 0.0 - 7.0 % 05/02/2025 9:38 AM [facility] Basophil % 0.8 0.0 - 1.6 % 05/02/2025 9:38 AM [facility] Immature Granulocytes % 1.0 0.0 - 1.0 % 05/02/2025 9:38 AM [facility] Neutrophil Absolute 6.02 1.60 - 7.50 x10E9/L 05/02/2025 9:38 AM [facility] Lymphocyte Absolute 1.52 1.00 - 4.40 x10E9/L 05/02/2025 9:38 AM [facility] Monocyte Absolute 0.88 0.15 - 1.00 x10E9/L 05/02/2025 9:38 AM [facility] Eosinophil Absolute 0.16 0.00 - 0.60 x10E9/L 05/02/2025 9:38 AM [facility] Basophil Absolute 0.07 0.00 - 0.13 x10E9/L 05/02/2025 9:38 AM [facility] Blood BLOOD SPECIMEN / Unknown Lab Venipuncture / Unknown 04/29/2025 10:31 AM CDT 05/02/2025 9:28 AM SEGMENT PRODUCER us Tawanda Saavedra MD LAB - HEMATOLOGY ORDERABLES Final Result [facility] [address] [place] [address], [facility] [phone] * (ABNORMAL) COMPREHENSIVE METABOLIC PANEL (04/29/2025 10:31 AM CDT) Only the most recent of11 resultswithin the time period is included. BUN 21 7 - 26 mg/dL 05/02/2025 10:23 AM [facility] Creatinine 1.42(H) 0.71 - 1.16 mg/dL 05/02/2025 10:23 AM [facility] Sodium 143 136 - 145 mmol/L 05/02/2025 10:23 AM [facility] Potassium 4.4 3.5 - 4.5 mmol/L 05/02/2025 10:23 AM [facility] Chloride 105 98 - 107 mmol/L 05/02/2025 10:23 AM [facility] CO2 20(L) 22 - 29 mmol/L 05/02/2025 10:23 AM [facility] Glucose 96 70 - 99 mg/dL 05/02/2025 10:23 AM [facility] Calcium 9.1 8.4 - 10.2 mg/dL 05/02/2025 10:23 AM [facility] Protein Total 7.3 6.0 - 8.3 g/dL 05/02/2025 10:23 AM [facility] Albumin 4.8 3.4 - 5.0 g/dL 05/02/2025 10:23 AM [facility] Bilirubin Total 0.9 0.2 - 1.2 mg/dL 05/02/2025 10:23 AM [facility] Alkaline Phosphatase 78 40 - 150 U/L 05/02/2025 10:23 AM [facility] ALT 19 5 - 55 U/L 05/02/2025 10:23 AM [facility] AST 21 5 - 34 U/L 05/02/2025 10:23 AM [facility] Anion Gap 18(H) 6 - 16 05/02/2025 10:23 AM [facility] BUN/Creatinine Ratio 15 7 - 23 05/02/2025 10:23 AM [facility] Osmolality Calculated 299(H) 275 - 295 mOsm/kg 05/02/2025 10:23 AM [facility] Albumin/Globulin Ratio 1.9 1.1 - 2.3 05/02/2025 10:23 AM [facility] eGFR by CKD-EPI 63(L) >=90 mL/min/1.7 3 m2 05/02/2025 10:23 AM [facility] Comment:Estimated Glomerular Filtration Rate (eGFR) calculated using the CKD-EPI Creatinine Equation (2020), per the National Kidney Foundation and [place] Society of Nephrology recommendations. Blood BLOOD SPECIMEN / Unknown Lab Venipuncture / Unknown 04/29/2025 10:31 AM CDT 04/29/2025 10:42 AM CDT us Tawanda Saavedra MD LAB - CHEMISTRY ORDERABLES F inal Result [facility] [address] [place] [address], [facility] [phone] * PHOSPHORUS BLOOD (04/29/2025 10:31 AM CDT) Only the most recent of10 resultswithin the time period is included. Pathologist [facility] Phosphorus 4.0 2.8 - 5.1 mg/dL 05/02/2025 10:00 AM [facility] Blood BLOOD SPECIMEN / Unknown Lab Venipuncture / Unknown 04/29/2025 10:31 AM CDT 04/29/2025 10:42 AM CDT us Tawanda Saavedra MD LAB - CHEMISTRY ORDERABLES F inal Result [facility] [address] [place] [address], [facility] [phone] * HEPATIC FUNCTION PANEL (04/29/2025 10:31 AM CDT) Only the most recent of2 resultswithin the time period is included. Pathologist [facility] Protein Total 7.4 6.0 - 8.3 g/dL 11:11 AM [facility] Albumin 4.8 3.4 - 5.0 g/dL 04/29/2025 11:11 AM [facility] Bilirubin Total 0.9 0.2 - 1.2 mg/dL 04/01 11:11 AM [facility] Bilirubin Conjugated 0.3 0.1 - 0.5 mg/dL 04/29/2025 11:11 AM [facility] Bilirubin Unconjugated 0.6 Unconjugated Bilirubin is a calculated value: Reference ranges have not been established. mg/dL 04/29/2025 11:11 AM [facility] Alkaline Phosphatase 81 40 - 150 U/L 04/29/2025 11:11 AM [facility] ALT 18 5 - 55 U/L 04/29/2025 11:11 AM [facility] AST 19 5 - 34 U/L 04/29/2025 11:11 AM [facility] Albumin/Globulin Ratio 1.8 1.1 - 2.3 04/29/2025 11:11 AM [facility] Blood BLOOD SPECIMEN / Unknown Lab Venipuncture / Unknown 04/29/2025 10:31 AM CDT 04/29/2025 10:42 AM CDT us Tawanda Saavedra MD LAB - CHEMISTRY ORDERABLES F inal Result [address] [address], [place] [phone] * MAGNESIUM BLOOD (04/29/2025 10:31 AM CDT) Only the most recent of10 resultswithin the time period is included. Magnesium 1.7 1.6 - 2.6 mg/dL 05/02/2025 10:00 AM SEGMENT PRODUCER [facility] Blood BLOOD SPECIMEN / Unknown Lab Venipuncture / Unknown 04/29/2025 10:31 AM CDT 04/29/2025 10:42 AM CDT Tawanda Saavedra MD LAB - CHEMISTRY ORDERABLES F inal Result Performing Organization Address City/[facility]/ZIP Co de Phone Number [address] [address], [place] [phone] * (ABNORMAL) IRON + TRANSFERRIN PANEL (04/29/2025 10:31 AM CDT) Only the most recent of2 resultswithin the time period is included. Iron 41(L) 50 - 175 ug/dL 04/29/2025 11:11 AM CDT [facility] Transferrin 206 174 - 382 mg/dL 04/29/2025 11:11 AM CDT [facility] Transferrin Saturation % 16 16 - 50 % 04/29/2025 11:11 AM CDT [facility] TIBC Calculated 258 240 - 450 ug/dL 04/29/2025 11:11 AM CDT [facility] Blood BLOOD SPECIMEN / Unknown Lab Venipuncture / Unknown 04/29/2025 10:31 AM CDT 04/29/2025 10:39 AM CDT Tawanda Saavedra MD LAB - CHEMISTRY ORDERABLES F inal Result [address] [address], [place] [phone] * FERRITIN (04/29/2025 10:31 AM CDT) Only the most recent of2 resultswithin the time period is included. Ferritin 268 22 - 275 ng/mL 04/29/2025 11:29 AM [facility] Blood BLOOD SPECIMEN / Unknown Lab Venipuncture / Unknown 04/29/2025 10:31 AM CDT 04/29/2025 10:39 AM CDT Tawanda Saavedra MD LAB - CHEMISTRY ORDERABLES F inal Result [facility] [address] [place] [address], [facility] [phone] * (ABNORMAL) LIPID PROFILE (04/29/2025 10:31 AM CDT) Only the most recent of2 resultswithin the time period is included. Pathologist [facility] Cholesterol Total 131 <200 mg/dL 04/29/2025 11:11 AM [facility] HDL 39(L) >40 mg/dL 04/29/2025 11:11 AM [facility] Comment: ATP III Classification of HDL Cholesterol: <40 mg/dL: Considered a major risk factor. >60 mg/dL: Considered a negative risk factor. LDL Calculated 62 <100 mg/dL 04/29/2025 11:11 AM [facility] Comment: ATP III Classification of LDL Cholesterol: <100 mg/dL: Optimal 100 - 129 mg/dL: Near Optimal/Above Optimal 130 - 159 mg/dL: Borderline High 160 - 189 mg/dL: High >190 mg/dL: Very High LDL is calculated using the Friedewald equation. Triglycerides 149 <150 mg/dL 04/29/2025 11:11 AM [facility] Comment: ATP III Classification of Triglycerides: <150 mg/dL: Normal 150 - 199 mg/dL: Borderline High 200 - 400 mg/dL: High >500 mg/dL: Very High Blood BLOOD SPECIMEN / Unknown Lab Venipuncture / Unknown 04/29/2025 10:31 AM CDT 04/29/2025 10:42 AM CDT Tawanda Saavedra MD LAB - CHEMISTRY ORDERABLES F inal Result [facility] [address] [place] [address], [facility] [phone] * VAS Right Venous Duplex Le (2025 2:23 PM CDT) Anatomical Region Laterality Modality Lower Extremity Intravascular Ul trasound 2025 1:17 PM CDT Narrative Procedure Note Randolph Bull MD - 2025 us Dolores Edwards MD VASCULAR LAB ORDERABLES Abebe angelo Result - Final * VAS Arterial Multilevel Le (04/07/2025 11:52 AM CDT) Anatomical Region Laterality Modality Intravascular Ul trasound 04/07/2025 11:0 6 AM CDT Narrative Procedure Note Randolph Bull MD - 04/07/2025 us Dolores Edwards MD VASCULAR LAB ORDERABLES Abebe angelo Result - Final * (ABNORMAL) CBC W/O DIFFERENTIAL (03/27/2025 6:03 AM CDT) Only the most recent of8 resultswithin the time period is included. WBC 9.0 4.0 - 10.7 x10E9/L 03/27/2025 6:38 AM [facility] RBC Count 4.17(L) 4.30 - 5.80 x10E12/L 03/27/2025 6:38 AM [facility] Hemoglobin 12.2(L) 13.3 - 17.5 g/dL 03/27/2025 6:38 AM T [facility] Hematocrit 35.7(L) 38.7 - 51.1 % 03/27/2025 6:38 AM [facility] MCV 85.6 80.0 - 98.0 fL 03/27/2025 6:38 AM CDT [facility] MCH 29.3 26.7 - 33.6 pg 03/27/2025 6:38 AM T [facility] MCHC 34.2 31.7 - 36.3 g/dL 03/27/2025 6:38 AM T [facility] RDW-CV 13.2 11.3 - 14.8 % 03/27/2025 6:38 AM T [facility] Platelet Count 243 150 - 420 x10E9/L 03/27/2025 6:38 AM T [facility] MPV 11.2 7.8 - 11.4 fL 03/27/2025 6:38 AM T [facility] Blood BLOOD SPECIMEN / Unknown Lab Venipuncture / Unknown 03/27/2025 6:03 AM CDT 03/27/2025 6:24 AM CDT us Jitendra Wilson MD LAB - HEMATOLOGY ORDERABLES Final Result [address] [address], [place] [phone] * (ABNORMAL) GLUCOSE - POINT OF CARE (03/26/2025 11:59 AM CDT) Only the most recent of33 resultswithin the time period is included. [facility] Glucose WB/POC 266(H) 70 - 99 mg/dL 03/26/2025 12:00 PM CDT [facility] Specimen Type Arterial/C apillary 03/26/2025 12:00 PM CDT [facility] Blood BLOOD SPECIMEN / Unknown 03/26/2025 11:59 AM CDT 03/26/2025 12:00 PM CDT us Octavio Lopez MD LAB - POINT OF CARE ORDERABL ES Final Result [address] [address], [place] [phone] * (ABNORMAL) BLOOD GASES INGRID + COOX PANEL (03/25/2025 3:30 PM CDT) pH Venous 7.36 7.32 - 7.42 pH 03/25/2025 3:39 PM [facility] pO2 Venous 51(H) 35 - 40 mmHg 03/25/2025 3:39 PM [facility] pCO2 Venous 55(H) 40 - 50 mmHg 03/25/2025 3:39 PM [facility] HCO3 Venous 31.1(H) 20 - 30 mmol/L 03/25/2025 3:39 PM [facility] Base Excess Venous 4.2(H) -2.0 - 2.0 mmol/L 03/25/2025 3:39 PM [facility] Oxyhemoglobin Venous 84.5 % 03/01 3:39 PM [facility] Deoxyhemoglobin (HHB) Venous % 13.1 % 03/25/2025 3:39 PM [facility] Methemoglobin <0.8 0.0 - 2.0 % 03/25/2025 3:39 PM [facility] Carboxyhemoglobin 1.9 0.0 - 2.0 % 2024 3:39 PM [facility] O2 Content Venous 16.8 Interpret within clinical context ml/dL 03/25/2025 3:39 PM [facility] Hemoglobin by COOX 14.2 12.0 - 17.6 g/dL 03/25/2025 3:39 PM [facility] O2 Saturation Venous 87 >=70 % 03/01 3:39 PM [facility] FI O2 Mixed Venous 34.0 % 2024 3:39 PM [facility] Blood BLOOD SPECIMEN / Unknown Venipuncture / Unknown 03/25/2025 3:30 PM T 03/25/2025 3:33 PM [facility] - 03/25/2025 3:39 PM [facility] Carboxyhemoglobin Normal Concentration: Non-smokers: 0-2%; Smokers: 0-9%; Toxic: >20% us Jamal Hernandez MD LAB - BLOOD GASES ORDERABLES Final Result [facility] [address] [place] [address], [facility] [phone] * XR Chest 1Vw Portable (03/25/2025 2:56 PM CDT) Anatomical Region Laterality Modality Chest Digital Radiogra phy 03/25/2025 3:48 PM CDT Impressions 03/25/2025 3:50 PM CDT IMPRESSION: No acute pulmonary disease. > Interpreting Provider: Allan Stevens MD on 03/25/2025 3:50 PM Narrative 03/25/2025 3:50 PM CDT PROCEDURE: XR CHEST 1VW PORTABLE DATE/TIME OF EXAM: 03/25/2025 2:56 PM CLINICAL INFORMATION: None relevant/not provided if blank. Indication: R09.02: Hypoxia Additional History: COMPARISON: 06/16/2024 FINDINGS: There is no pulmonary consolidation, pleural effusion, or pneumothorax. The heart size is normal. Soft tissue prominence in the right paratracheal region is unchanged. Procedure Note Allan Stevens MD - 03/25/2025 PROCEDURE: XR CHEST 1VW PORTABLE DATE/TIME OF EXAM: 03/25/2025 2:56 PM CLINICAL INFORMATION: None relevant/not provided if blank. Indication: R09.02: Hypoxia Additional History: COMPARISON: 06/16/2024 FINDINGS: There is no pulmonary consolidation, pleural effusion, or pneumothorax. The heart size is normal. Soft tissue prominence in the rightparatracheal region is unchanged. IMPRESSION: No acute pulmonary disease. > Interpreting Provider: Allan Stevens MD on 03/25/2025 3:50 PM Jamal Hernandez MD DIAGNOSTIC IMAGING ORDERABLE S Final Result * CULTURE TISSUE+GRAM STAIN (03/23/2025 5:17 PM CDT) Culture No growth [place] 03/26/2025 9:55 PM CDT [facility] Gram Stain No organisms seen 025 9:55 PM CDT [facility] Gram Stain No polymorphonuclear cells 03/26/2025 9:55 PM CDT [facility] Microbiology ENTIRE INGUINAL REGION / Unknown Collection / Unknown 03/23/2025 5:17 PM CDT 03/23/2025 5:17 PM CDT Dolores Edwards MD LAB - MICROBIOLOGY ORDERABL ES Final Result Performing Organization Address City/[facility]/ZIP Co de Phone Number [facility] [address] [place] [address], [facility] [phone] * CULTURE ANAEROBE (03/23/2025 5:07 PM CDT) Culture No anaerobic organisms isolated [place] 03/29/2025 3:13 PM CDT [facility] Microbiology ENTIRE INGUINAL REGION / Unknown Collection / Unknown 03/23/2025 5:07 PM CDT 03/23/2025 5:07 PM CDT Dolores Edwards MD LAB - MICROBIOLOGY ORDERABL ES Final Result Performing Organization Address City/[facility] Co de Phone Number [facility] [address] [place] [address], [facility] [phone] * ACT LR - POCT ([facility]) (03/23/2025 3:24 PM CDT) Only the most recent of2 resultswithin the time period is included. ACT LR 228 See result comments sec 03/23/2025 5:02 PM CDT [facility] Blood BLOOD SPECIMEN / Unknown 03/23/2025 3:24 PM CDT 03/23/2025 5:02 PM CDT Narrative [facility] - 03/23/2025 5:02 PM CDT ACT-LR Therapeutics ranges are: Cardiac propagator laborer = 200-300 seconds Sheath pull = ACT less than 170 seconds EPS lab = 200-240 seconds Sheath pull = ACT less than 140 seconds Radiology : CT/Angio lab = 200-300 seconds Sheath pull = ACT less than 200 seconds Expected range of normal volunteers: ACT-LR = 113-149 seconds Expected range of a Non-heparin patients: ACT-LR = 89-169 seconds From established ranges from the company manual Guillermo Haile MD LAB - COAGULATION ORDERABLES F inal Result [facility] [address] [place] [address], [place] [phone] * CENTRAL LINE PERFORMABLE (03/23/2025 1:41 PM CDT) Narrative Onesimo Couch CAA - 03/23/2025 1:41 PM CDT Onesimo Couch CAA 03/23/2025 1:41 PM Central Line Placement Procedure Note/LDA Insertion Time: 03/23/2025 12:59 PM Procedure: central line > 5yr ([id number]) Procedure Section: Indications: IV access and CVP monitoring. Consent: informed consent was obtained for the procedure. Patient Sedated? Yes Sedation Type: general anesthesia Patient Position: trendelenburg Orientation: right. Site: internal jugular Skin Prep: Chloraprep. Site Identification: ultrasound guided with sterile sleeve and gel. Wire Verification: verified by ultrasound. Intravenous Verification: verified by ultrasound and all ports aspirated/flushed easily. Lumens: triple lumen Size: 7 Fr. Length (cm): 16. Secured at (cm): 16. Port Insertion: guidewire removed intact, all ports aspirated/flushed, sutured in place and dressing applied. Number of Attempts: 1. Procedure Tolerance: tolerated well Maximal Sterile Barriers: Cap, mask, sterile gloves, a large sterile sheet, hand hygiene, and chlorhexidine for cutaneous antisepsis (6030F) Staff Section Anesthesia Provider: Onesimo Couch, Performed the procedure Provider #1: Christiano Fung MD. us Christiano Fung MD GENERAL ANESTHESIA ORDERABLES F inal Result * ETT LINE PERFORMABLE (03/23/2025 1:27 PM CDT) Narrative Onesimo Couch CAA - 03/23/2025 1:27 PM CDT Onesimo Couch CAA 03/23/2025 1:33 PM Endotracheal Tube Placement: Patient Location: OR. Intubation Event Date/Time: 03/23/2025 12:33 PM Procedure: intubation ([id number]) Procedure Section: Sedation: under general anesthesia. Indications for Airway Management: anesthesia Induction: standard IV Patient Position: sniffing Mask Ventilation: easy. Blade Type: Pierce Blade Size: 2 Laryngoscopy View: grade 2 (partial cords) Tube: endotracheal tube Placement: oral Tube type: cuff - inflated Tube Size (MM): 7 Cuff Inflated With: air Number of Attempts: 1. Placement Verified By: direct visualization, chest auscultation, CO2 detector, CO2 monitor and bilateral breath sounds CXR Findings: ETT in proper place. Tube secured with: adhesive tape. Dentition unchanged? Yes Difficult Airway? No. Procedure Start Time: 03/23/2025 12:33 PM. Staff Section Anesthesia Provider: Onesimo Couch CAA, Performed the procedure Provider #1: Christiano Fung MD. Additional Comments: Atraumatic intubation no change in dentition or soft tissue of aw after dl.. Christiano Fung MD GENERAL ANESTHESIA ORDERABLES E dited Result - Final * (ABNORMAL) BLOOD GAS+COOX+LYTES+METAB VENOUS POCT (03/23/2025 1:25 PM CDT) pH Venous 7.43(H) 7.32 - 7.42 pH 03/23/2025 1:25 PM [facility] pO2 Venous 40 35 - 40 mmHg 03/23/2025 1:25 PM [facility] pCO2 Venous 47 40 - 50 mmHg 03/23/2025 1:25 PM [facility] HCO3 Venous 31.2(H) 20 - 30 mmol/L 03/23/2025 1:25 PM [facility] Base Excess Venous 5.8(H) -2.0 - 2.0 mmol/L 03/23/2025 1:25 PM [facility] Oxyhemoglobin Venous 74.4 % 03/01 1:25 PM [facility] Deoxyhemoglobin (HHB) Venous % 23.7 % 03/23/2025 1:25 PM [facility] Methemoglobin <0.8 0.0 - 2.0 % 03/23/2025 1:25 PM [facility] Carboxyhemoglobin 1.4 0.0 - 2.0 % 2024 1:25 PM [facility] Comment:Carboxyhemoglobin No rmal Concentration: Non-smokers: 0-2%; Smokers: 0- 9%; Toxic: >20% O2 Content Venous 15.2 Interpret within clinical context ml/dL 03/23/2025 1:25 PM [facility] Hemoglobin by COOX 14.6 12.0 - 17.6 g/dL 03/23/2025 1:25 PM [facility] O2 Saturation Venous 76 >=70 % 03/01 1:25 PM [facility] Sodium Whole Blood 135 135 - 145 mmol/L 03/23/2025 1:25 PM [facility] Potassium Whole Blood 4.5 3.5 - 5.5 mmol/L 03/23/2025 1:25 PM [facility] Chloride WB 99 78 - 107 mmol/L 03/23/2025 1:25 PM [facility] Calcium Ionized 1.16 mmol/L 1:25 PM [facility] Ionized Calcium pH Adjusted 1.17(L) 1.19 - 1.34 mmol/L 03/23/2025 1:25 PM [facility] Anion Gap (AG) Arterial 9 6 - 16 mmol/L 03/23/2025 1:25 PM [facility] Glucose WB 197(H) 70 - 99 mg/dL 03/23/2025 1:25 PM [facility] Lactic Acid Whole Blood 1.3 <=2.0 mmol/L 03/23/2025 1:25 PM [facility] Blood BLOOD SPECIMEN / Unknown 03/23/2025 1:25 PM CDT 03/23/2025 1:26 PM CDT us Guillermo Haile MD LAB - POINT OF CARE ORDERABLES Final Result [facility] [address] [place] [address], [facility] [phone] * EKG 12-LEAD (03/23/2025 10:22 AM CDT) [facility] Ventricular Rate 59 BPM [facility] MUSE Atrial Rate 59 BPM [facility] M[facility] P-R Interval 150 ms [facility] QRS Duration ms 98 ms [facility] MUSE Q-T Interval ms 434 ms [facility] QTC Calculation (Bezet) 429 ms [facility] MUSE Calculated P [place] 32 degrees [facility] MUSE Calculated T [place] 25 degrees [facility] MUSE Interpretation EKG SINUS BRADYCARDIA INCOMPLETE RIGHT BUNDLE BRANCH BLOCK INFERIOR INFARCT (CITED 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-2024) ANTEROLATERAL INFARCT , AGE UNDETERMINED ABNORMAL ECG WHEN COMPARED WITH ECG OF 30-JUL-2024 18:10, ANTERIOR INFARCT IS NOW PRESENT ANTEROLATERAL INFARCT IS NOW PRESENT T WAVE AMPLITUDE HAS DECREASED IN ANTERIOR LEADS Confirmed by MD JUAN, DAWSON ([id number]) on 04/01/2025 9:41:22 AM [facility] MUSE 03/23/2025 10:2 2 AM CDT 04/01/2025 9:41 AM CDT us Jitendra Wilson MD ECG ORDERABLES Edited Resul t - Final [facility] MUSE * PREPARE (CROSSMATCH) RBC UNIT(S), 2 Units (03/22/2025 11:28 PM CDT) [facility] Unit Description AS1 LR PRBC [facility] Unit ABO O [facility] B[facility] Unit Rh POS [facility] Product Number R02 [facility] B LOOD BANK LAB Unit Donor # [id number] [facility] BLOOD BANK LAB Unit Status released [facility] BLOO D BANK LAB Product Code [id number] [facility] OD BANK LAB Blood Type Barcode 5100 [facility] BLOOD [facility] LAB Expiration Date S BLOOD BANK LAB Unit Description AS1 LR PRBC [facility] BLOOD [facility]ANK LAB Unit ABO O [facility] BLOOD [facility] LAB Unit POS [facility] BLOOD [facility] LAB Product Number R02 [facility] B LOOD BANK LAB Unit Donor # [id number] [facility] BLOOD [facility]ANK LAB Unit Status released [facility] BLOO D BANK LAB Product Code [id number] [facility] BLO OD BANK LAB Blood Type Barcode 5100 [facility] BLOOD BANK LAB Expiration Date S BLOOD BANK LAB Blood Bank BLOOD SPECIMEN / Unknown 03/22/2025 11:28 PM CDT 03/23/2025 12:02 AM CDT us Jitendra Wilson MD LAB - BLOOD BANK ORDERABLES Final Result Performing Organization Address City/[facility]/ZIP Co de Phone Number [facility] B[facility]OD BANK LAB [address] [place] [address], [facility] [phone] * TYPE + SCREEN PANEL (03/22/2025 11:28 PM CDT) Only the most recent of2 resultswithin the time period is included. Antibody Screen NEG 12:52 AM CDT [facility] BLOOD BANK LAB ABO Rh O POS 03/23/2025 12:52 AM CDT [facility] BLOOD BANK LAB Blood Bank BLOOD SPECIMEN / Unknown Venipuncture / Unknown 03/22/2025 11:28 PM CDT 03/23/2025 12:02 AM CDT us Jitendra Wilson MD LAB - BLOOD BANK ORDERABLES Final Result Performing Organization Address [facility] Co de Phone Number [facility] BLOOD BANK LAB [address] [place] [address], [facility] [phone] * PT-INR (03/22/2025 9:07 PM CDT) PT 13.1 12.1 - 14.8 Seconds 03/22/2025 9:33 PM CDT [facility] INR 1.0 See Comment 03/22/2025 9:33 PM CDT [facility] Comment:The suggested therap eutic range for standard coumadin (warfarin) therapy is an INR of 2.0-3.0. For high-risk patients (Mechanical Mitral Valve Prosthesis, etc.), the suggested prophylactic therapeutic range is an INR of 2.5-3.5. Blood BLOOD SPECIMEN / Unknown Venipuncture / Unknown 03/22/2025 9:07 PM CDT 03/22/2025 9:10 PM CDT us Evelyn Lugo JET WIPER-CLOCKMAKER LAB - COAGULATION OR DERABLES Final Result Performing Organization Address City/[facility]/ZIP Co de Phone Number [address] [address], [facility] [phone] * [place] Donnie Mott Angio Team (03/18/2025 10:00 AM CDT) Narrative [facility]OLOG[facility] - 03/18/2025 10:01 AM CDT Fluoroscopy was used for this exam in the OR. Please see the Operative report. Dolores Edwards MD FLUOROSCOPY ORDERABLES Filomena l Result Performing Organization Address [facility] Co de Phone Number [facility] * Arterial Line Placement (03/18/2025 9:32 AM CDT) Narrative [facility] - 03/18/2025 9:32 AM CDT [facility] 03/18/2025 9:33 AM Arterial Line Placement Procedure Note Patient Location: OR. Insertion Time: 03/18/2025 9:14 AM Procedure: Arterial Line ([id number]) Procedure Section Indications: hypotension. Consent: informed consent could not be obtained due to the patient's condition, urgency of situation, and/or lack of family members to sign consent. Alternatives Discussed: alternative treatment Skin Prep: Chloraprep. Site: radial. Site Identification: ultrasound guided with sterile sleeve and gel. Sterile Technique: cap, mask, sterile gloves and small sterile fenestrated drape. Gauge: 20. Seldinger Technique Used? No Number of Attempts: 1. Procedure Tolerance: tolerated well. Events: none. Procedure Start Time: 03/18/2025 9:12 AM. Procedure End Time: 03/18/2025 9:14 AM. Procedure Total Time: 2 minutes. Staff Section Anesthesia Provider: Monique Garcia MD, Performed the procedure us Monique Garcia MD GENERAL ANESTHESIA ORDERABLES Final Result * ETT LINE PERFORMABLE (03/18/2025 9:31 AM CDT) Narrative [facility] - 03/18/2025 9:31 AM CDT [facility] 03/18/2025 9:32 AM Endotracheal Tube Placement: Patient Location: OR. Intubation Event Date/Time: 03/18/2025 9:07 AM Procedure: intubation ([id number]) Procedure Section: Sedation: IV sedation. Indications for Airway Management: airway protection Procedure pretreatments used? Yes Induction: standard IV Patient Position: sniffing Mask Ventilation: easy. Blade Type: Pierce Blade Size: 3 Laryngoscopy View: grade 1 (full cords) Intubation Adjuncts: cricoid pressure Tube: endotracheal tube Placement: oral Tube type: cuff - inflated Measured From: lips Cuff Inflated With: air Number of Attempts: 1. Placement Verified By: direct visualization, bilateral breath sounds, chest auscultation and CO2 monitor CXR Findings: ETT in proper place. Tube secured with: adhesive tape. Dentition unchanged? Yes Difficult Airway? No. Procedure Start Time: 03/18/2025 9:07 AM. Staff Section Anesthesia Provider: [place] [facility], Performed the procedure Provider #1: Monique Garcia MD. us Monique Garcia MD GENERAL ANESTHESIA ORDERABLES Final Result * (ABNORMAL) BASIC METABOLIC PANEL (CALCIUM TOTAL) (03/18/2025 4:41 AM CDT) Only the most recent of2 resultswithin the time period is included. BUN 31(H) 7 - 26 mg/dL 03/18/2025 5:59 AM [facility] Creatinine 1.43(H) 0.71 - 1.16 mg/dL 03/18/2025 5:59 AM [facility] Sodium 137 136 - 145 mmol/L 03/18/2025 5:59 AM [facility] Potassium 4.3 3.5 - 4.5 mmol/L 03/18/2025 5:59 AM [facility] Chloride 104 98 - 107 mmol/L 03/18/2025 5:59 AM [facility] CO2 23 22 - 29 mmol/L 03/18/2025 5:59 AM [facility] Glucose 346(H) 70 - 99 mg/dL 03/18/2025 5:59 AM [facility] Calcium 8.7 8.4 - 10.2 mg/dL 03/18/2025 5:59 AM [facility] Anion Gap 10 6 - 16 03/18/2025 5:59 AM [facility] BUN/Creatinine Ratio 22 7 - 23 03/18/2025 5:59 AM [facility] Osmolality Calculated 304(H) 275 - 295 mOsm/kg 03/18/2025 5:59 AM [facility] eGFR by CKD-EPI 63(L) >=90 mL/min/1.7 3 m2 03/18/2025 5:59 AM [facility] Comment:Estimated Glomerular Filtration Rate (eGFR) calculated using the CKD-EPI Creatinine Equation (2020), per the National Kidney Foundation and [place] [employer] Neph[employer] recommendations. Blood BLOOD SPECIMEN / Unknown Lab Venipuncture / Unknown 03/18/2025 4:41 AM CDT 03/18/2025 5:28 AM CDT us Liu Perez III, MD LAB - CHEMISTRY ORDERAB LES Final Result [facility] [address] [place] [address], [facility] [phone] * (ABNORMAL) URINALYSIS COMPLETE W MICROSCOPIC (03/17/2025 9:00 AM CDT) Only the most recent of2 resultswithin the time period is included. Color UA Yellow Yellow, Straw 03/17/2025 9:43 AM [facility] Clarity UA Clear Clear 03/17/2025 9:43 AM [facility] Glucose UA 4+(A) Normal 03/17/2025 9:43 AM [facility] Bilirubin UA Negative Negative 03/17/2025 9:43 AM [facility] Ketone UA Negative Negative 03/17/2025 9:43 AM [facility] Specific Dalton UA 1.017 1.005 - 1.030 03/17/2025 9:43 AM [facility] Blood UA Negative Negative 03/17/2025 9:43 AM [facility] pH UA 6.5 5.0 - 8.0 03/17/2025 9:43 AM [facility] Protein UA Negative Negative 03/17/2025 9:43 AM T [facility] Urobilinogen UA Normal Normal mg/dL 025 9:43 AM T [facility] Nitrite UA Negative Negative 03/17/2025 9:43 AM T [facility] Leukocyte Esterase UA Negative Negative 03/17/2025 9:43 AM T [facility] RBC UA 0-2 0 - 5 # /hpf 03/17/2025 9:43 AM T [facility] WBC UA None Seen 0 - 5 # /hpf 03/17/2025 9:43 AM T [facility] Bacteria UA None Seen None Seen 03/17/2025 9:43 AM T [facility] Squamous Epithelial Cells None Seen 0 - 5 /hpf 03/17/2025 9:43 AM [facility] Urine URINE SPECIMEN OBTAINED BY CLEAN CATCH PROCEDURE / Unknown Collection / Unknown 03/17/2025 9:00 AM CDT 03/17/2025 9:22 AM CDT Tawanda Saaverda MD LAB - URINALYSIS ORDERABLES Final Result [address] [address], [facility] [phone] * CYTOMEGALOVIRUS QUAL PCR (03/17/2025 9:00 AM CDT) Only the most recent of2 resultswithin the time period is included. Cytomegalovirus PCR Not Detected 03/20/2025 4:11 AM CDT [facility] ([facility]) Comment: NOT DETECTED - A negative result does not rule out the presence of PCR inhibitors in the patient specimen or assay specific nucleic acid in concentrations below the level of detection by the assay. INTERPRETIVE INFORMATION: Cytomegalovirus Detection by PCR This test was developed and its performance characteristics determined by [facility]. It has not been cleared or approved by the [place] Food and Drug Administration. This test was performed in a CLIA certified laboratory and is intended for clinical purposes. Performed By: [facility] [address] [place] [id number] Converting Operator: Chris García MD, PhD CLIA Number: [id number] Cytomegalovirus Source Blood 03/20/2025 4:11 AM CDT [facility] ([facility]) Microbiology BLOOD SPECIMEN / Unknown Collection / Unknown 03/17/2025 9:00 AM CDT 03/17/2025 9:24 AM CDT Tawanda Saavedra MD LAB - BODY FLUID ORDERABLES Final Result [facility]) [address] [place], [place] [address]RUST * CULTURE URINE (03/17/2025 9:00 AM CDT) Only the most recent of2 resultswithin the time period is included. Culture Urine <10,000 CFU/mL urogenital lizzy [place] 03/18/2025 4:57 PM CDT [facility] Urine URINE SPECIMEN OBTAINED BY CLEAN CATCH PROCEDURE / Unknown Collection / Unknown 03/17/2025 9:00 AM CDT 03/17/2025 9:22 AM CDT Tawanda Saavedra MD LAB - MICROBIOLOGY ORDERABLE S Final Result Performing Organization Address City/[facility] Co de Phone Number [facility] [address] [place] [address], [facility] [phone] * PROTEIN URINE RANDOM QUANTITATIVE (03/17/2025 9:00 AM CDT) Only the most recent of2 resultswithin the time period is included. Protein Urine <7 Not Established mg/dL 03/17/2025 10:13 AM CDT [facility] Urine URINE SPECIMEN OBTAINED BY CLEAN CATCH PROCEDURE / Unknown Collection / Unknown 03/17/2025 9:00 AM CDT 03/17/2025 9:22 AM CDT Tawanda Saavedra MD LAB - URINE CHEMISTRY ORDERA BLES Final Result Performing Organization Address City/[facility]/ZIP Co de Phone Number [facility] [address] [place] [address], [place] [phone] * CREATININE URINE RANDOM (03/17/2025 9:00 AM CDT) Only the most recent of2 resultswithin the time period is included. Creatinine Urine 83.26 Not Established mg/dL 03/17/2025 10:13 AM CDT [facility] Urine URINE SPECIMEN OBTAINED BY CLEAN CATCH PROCEDURE / Unknown Collection / Unknown 03/17/2025 9:00 AM CDT 03/17/2025 9:22 AM CDT us Tawanda Saavedra MD LAB - URINE CHEMISTRY ORDERA BLES Final Result [facility] [address] [place] [address], [facility] [phone] * CARDIAC EKG ORDER (03/08/2025 8:54 AM CDT) Narrative 03/08/2025 8:54 AM CDT Ordered by an unspecified provider. us Scanned Document CARDIAC SERVICES ORDERABLES Fin al Result * (ABNORMAL) PROTEIN CREATININE RATIO URINE RANDOM PNL (08/13/2024 9:31 AM SEGMENT PRODUCER) Protein Urine 7 Not Established mg/dL 08/13/2024 10:52 AM [facility] Creatinine Urine 67.22 Not Established mg/dL 08/13/2024 10:52 AM [facility] Protein/Creati nine Ratio Urine 0.10(H) <0.10 08/13/2024 10:52 AM [facility] Urine URINE SPECIMEN OBTAINED BY CLEAN CATCH PROCEDURE / Unknown Collection / Unknown 08/13/2024 9:31 AM SEGMENT PRODUCER 08/13/2024 10:04 AM SEGMENT PRODUCER us Alex Arias MD LAB - URINE CHEMISTRY ORDERABLES Final Result [facility] [address] [place] [address], [place] [phone] * HIV-1 HIV-2 ANTIBODY + HIV P24 AG PANEL (06/12/2024 4:21 AM SEGMENT PRODUCER) HIV Antigen/Antibod y 1 & 2 Non-reacti ve Non-react luana 06/12/2024 5:59 AM SEGMENT PRODUCER [facility] Comment:No Laboratory eviden ce of HIV infection. Blood BLOOD SPECIMEN / Unknown Venipuncture / Unknown 06/12/2024 4:21 AM SEGMENT PRODUCER 06/12/2024 4:47 AM SEGMENT PRODUCER us Alex Arias MD LAB - CHEMISTRY ORDERA BLES Final Result [facility] [address] [place] [id number], [facility] [phone] * HEPATITIS C RNA QUANTITATIVE (06/12/2024 4:21 AM SEGMENT PRODUCER) Pathologist [facility] Hepatitis C RNA PCR, Interp Not detected Not detected 06/14/2024 10:31 AM SEGMENT PRODUCER [facility] Blood BLOOD SPECIMEN / Unknown Venipuncture / Unknown 06/12/2024 4:21 AM SEGMENT PRODUCER 06/12/2024 4:47 AM SEGMENT PRODUCER Narrative [facility] - 06/14/2024 10:31 AM SEGMENT PRODUCER The Hepatitis C viral (HCV) RNA analysis utilized a serum sample, real-time reverse line builder PCR, and is reported as Not Detected, Detected (<15 IU/mL), Quantity (IU/mL) or >100,000,000 IU/mL. The analytic sensitivity (LOD) of the assay is 15 IU/mL. The linear range is from 15 IU/mL to 100,000,000 IU/mL. Values less than 15 IU/mL are reported as Detected (<15 IU/mL). Values greater than 100,000,000 IU/mL are reported as >100,000,000 IU/mL. The detection/quantitation of HCV RNA in serum is based on the isolation of HCV RNA with reverse line builder of genomic HCV RNA followed by real-time PCR in the presence of an unrelated RNA internal control. The internal control ensures that RNA is isolated, and that no general significant inhibitors of the RT-PCR process are present. The analysis was performed using a U.S. FDA approved test methodology Josee violeta HCV. Alex Arias MD LAB - CHEMISTRY ORDERReyes LANDRUM Final Result [facility] [address] [place] [address], [place] [phone] from Last 3 Months or Most Recently Relevant to Health Maintenance Insurance MEDICAID - [place] UHC MANAGED MEDICARE ADV Advance Directives * Full Code (Latest Code Status on File) Date Activated Date Inactivated Comments 03/23/2025 5:16 PM 03/27/2025 4:45 PM * Full Code Date Activated Date Inactivated Comments 03/23/2025 2:32 AM 03/23/2025 5:16 PM * Full Code Date Activated Date Inactivated Comments 03/17/2025 7:55 PM 03/18/2025 5:06 PM * Full Code Date Activated Date Inactivated Comments 08/18/2024 2:21 PM 08/24/2024 4:48 PM * Full Code Date Activated Date Inactivated Comments 07/30/2024 9:27 PM 07/31/2024 12:30 PM Care Teams Graphic Specialist Relationship Specialty Start Date End Date Aisha Medina APRN-CLOCKMAKER PCP - General Nurse Practitioner 03/12/19 Rita Lynne MD 03/02/19 Martha Worrell MD Nephrology 03/12/19
--- OUTSIDE RECORDS SUMMARY | 2025-05-25 13:46 | XMS_ITS | Encounter Summary ---
Author Organization [facility] Address [address] [place] [address] Phone Care Team Providers Care Senior Service Aide Name Role Phone Ariel Lua DPM Unavailable [phone] Aisha Medina APRN, CAR REPAIRER HELPER Primary Care Prov ider Juanjo Mclaughlin MD Unavailable Rita Lynne MD Unavailable Meron Gurrola RN Unavailable Unavailable Meron Gurrola RN Unavailable Unavailable Reason for Visit * Reason Comments Medication Refill Encounter Details Date Type Department Care Team (Late st Contact Info) Description 08/01/2020 Refill [facility] [address] [place] [address] Aisha Medina APRN, CAR REPAIRER HELPER #[address] [address] Medication Refill Social History Tobacco [...] for med refill request approval per PCP. [place] MAN documented in this encounter Plan of Treatment Upcoming Encounters Date Type Department Care Team (Late st Contact Info) Description 06/02/2025 9:45 AM MORTAR MAN Office Visit [facility] - [facility] Medicine [facility] [address] [place] [phone] Aisha Medina APRN, CAR REPAIRER HELPER #[address] [phone] documented as of this encounter Visit Diagnoses Diagnosis Hypertension, unspecified type Hyperlipidemia, unspecified hyperlipidemia type documented in this encounter Additional Health Concerns Assessment Noted Time PHQ-9 Depression Total Score: 0 07/01/19 20 11:36 AM MORTAR MAN documented as of this encounter Care Teams Senior Service Aide Relationship Specialty Start Date End Date Aisha Medina APRN, CAR REPAIRER HELPER #[address] [address] PCP - General Advanced Practice Nurse 07/17/18 Ariel Lua DPM Consulting Physician Podiatry 12/02/16 Juanjo Mclaughlin MD [address] [place] [phone] Consulting Physician Oncology 12/01/19 Rita Lynne MD #[address] [phone] Consulting Physician Endocrinology 10/17/22 Meron Gurrola, ZEINAB [place] Nurse Weight Calculator 01/09/24 01/15/24 Meron Gurrola RN [place] Nurse Weight Calculator 11/26/24 12/08/24 documented as of this encounter
--- OUTSIDE RECORDS SUMMARY | 2025-05-25 13:46 | XMS_ITS | Encounter Summary ---
Author Organization [facility] Address [address] [place] [address] Phone Care Team Providers Care Kinesiotherapist Name Role Phone ChanellAriel DPShantel Unavailable [phone] Aisha Medina APRN, BRICK VENEER MAKER Primary Care Prov ider Juanjo Mclaughlin MD Unavailable Rita Lynne MD Unavailable Reason for Visit * Reason Comments Medication Refill Encounter Details Date Type Department Care Team (Late st Contact Info) Description 05/24/2025 [facility]ill [facility] [address] [place] [address] Aisha Medina APRN, BRICK VENEER MAKER #[address] [address] Medication Refill Social History Tobacco Use Types Packs/Day Years Used Date Smoking Tobacco: Never Smokeless Tobacco: Never Alcohol Use Standard Drinks/Week Comments Yes 0 (1 standard drink = 0.6 oz pur e alcohol) Socially PHQ-2 Answer Date Recorded Total Score - Questions 1-9 0 05/0 11/2024 Sexually Active Control Partners Comments Yes Female Sex and Gender Information Value Date Recorded Sex Assigned at Not on file Legal Sex Male 12:16 AM CDT Gender Identity Not on file Sexual Orientation Not on file documented as of this encounter Miscellaneous Notes * Telephone Encounter - Bree Calderón RN - 05/25/2025 11:34 AM PARTS ROOM ASSOCIATE Dispensed Days Supply Quantity Provider Pharmacy LORAZEPAM 1MG TABLETS 04/04/2025 30 60 Each Aisha Medina APRN, KASSI [facility]... Medication failed the protocol, provider to review and approve the medication order if appropriate. Requested Prescriptions Pending Prescriptions Disp Refills LORazepam (ATIVAN) 1 MG Tablet [Pharmacy Med Name: LORAZEPAM 1MG TABLETS] 60 Tablet Sig: TAKE 1 TABLET BY MOUTH EVERY 12 HOURS NEEDED FOR ANXIETY Not Delegated - Benzodiazepines Protocol Failed - 05/25/2025 11:34 AM Failed - This refill cannot be delegated Passed - Visit with relevant provider in past 12 months or upcoming 90 days Recent Visits Date Type Provider Dept 11/02/24 Office Visit Aisha Medina APRN, CNP [facility] 08/02/24 Telemedicine [address] Mull[address] [facility] Showing recent visits within past 365 days and meeting all other requirements Future Appointments Date Type Provider Dept 06/02/25 Appointment iAsha Medina APRN, CNP [facility] Showing future appointments within next 90 days and meeting all other requirements S ROOM ASSOCIATE * Telephone Encounter - Bree Calderón RN - 05/25/2025 11:34 AM PARTS ROOM ASSOCIATE Dispensed Days Supply Quantity Provider Pharmacy LORAZEPAM 1MG TABLETS 04/04/2025 30 60 Each Aisha Medina APRN, KASSI [facility] #... S ROOM ASSOCIATE documented in this encounter Plan of Treatment Upcoming Encounters Date Type Department Care Team (Late st Contact Info) Description 06/02/2025 9:45 AM PARTS ROOM ASSOCIATE Office Visit [facility] - Family [facility] [address] [place] [address] Aisha Medina APRN, BRICK VENEER MAKER #[address] [facility] [address] [place] [address] documented as of this encounter Visit Diagnoses Diagnosis Anxiety Anxiety state, unspecified documented in this encounter Additional Health Concerns Assessment Noted Time PHQ-9 Depression Total Score: 0 11/03/19 25 11:43 AM CDT documented as of this encounter Care Teams Kinesiotherapist Relationship Specialty Start Date End Date Aisha Medina APRN, BRICK VENEER MAKER #[address] [facility] [address] [place] [address] PCP - General Advanced Practice Nurse 07/17/18 Ariel Lua DPM Consulting Physician Podiatry 12/02/16 Juanjo Mclaughlin MD [address] [place] [address] Consulting Physician Oncology 12/01/19 Rita Lynne MD #[address] [phone] Consulting Physician Endocrinology 10/17/22 documented as of this encounter
--- OUTSIDE RECORDS SUMMARY | 2025-05-25 13:46 | XMS_ITS | Clinical Summary ---
Author Organization [facility] Address [address] [place] [address] Care Team Providers Care Small Arms Artillery Repairer Name Role Phone Unavailable Primary Care Provider Unavailabl e Medications famotidine (PEPCID) 40 MG tablet Take 1 tablet (40 mg total) by mouth 1 (one) time each day 90 tablet 1 4 Active gentamicin (GARAMYCIN) 0.1 % cream APPLY TO AFFECTED AREA TO THE SKIN DAILY 30 g 3 4 Active metoprolol tartrate (LOPRESSOR) 50 MG tablet TAKE TWO TABLETS BY MOUTH EVERY MORNING AND 1 TABLET IN THE AFTERNOON 90 tablet 5 4 Active Calcium Acetate, Phos Binder, 667 MG capsule Take 2 tablets daily three times daily with meals and 2 tablets with snacks once daily. 240 capsule 11 4 Active calcitriol (ROCALTROL) 0.5 MCG capsule TAKE ONE CAPSULE BY MOUTH ON FRIDAY, FRIDAY, FRIDAY 12 capsule 11 5 Active Family History Medical History Relation Comments Hypertension Father Diabetes Mother Heart disease Mother Hypertension Mother Relation Status Comments Father Alive Mother Social History Tobacco Use Types Packs/Day Years [...] Sign Reading Time Taken Comments Blood Pressure 146/80 05/17/2020 12:00 PM GLUE MOUNTER OPERATOR Pulse 81 03/24/2020 12:00 PM CDT Temperature 36.9 C (98.4 F) 05/17/2020 12:00 PM GLUE MOUNTER OPERATOR Respiratory Rate 18 05/17/2020 12:00 PM GLUE MOUNTER OPERATOR Oxygen Saturation 98% 05/17/2020 12:00 PM GLUE MOUNTER OPERATOR Inhaled Oxygen Concentration - - Weight 90.3 kg (199 lb) 05/17/2020 12:00 PM GLUE MOUNTER OPERATOR Height 175.3 cm (5' 9) 05/17/2020 12:00 PM GLUE MOUNTER OPERATOR Body Mass Index 29.39 05/17/2020 12:00 PM GLUE MOUNTER OPERATOR Plan of Treatment Health Maintenance Due Date Last Done Comments Hepatitis B Vaccine (1 of 3 - 19+ 3-dose series) 2002 01/14/2022 Pneumococcal Vaccine: Peds ( 0 to 5 Years) and At-Risk Patients (6 to 49 Years) (3 of 3 - PCV) 04/09/2017 04/09/2016, 10/30/2010 Diabetes: Pedal Pulse Checked 11/24/2020 Diabetes: Sensory Foot Exam 11/24/2020 Diabetes: Visual Foot Exam 11/24/2020 Diabetes: Ophthalmology Exam 08/30/2021 08/30/2020, 08/02/2020 Diabetes: Hemoglobin A1C 11/07/2024 025, 08/06/2024, 06/12/2024, Additional history exists Influenza Vaccine (#1) 2025 , 06/16/2023, 04/25/2022, Additional history exists Insurance [place] Medicaid Medicare
--- OUTSIDE RECORDS SUMMARY | 2025-05-25 13:46 | XMS_ITS | Clinical Summary ---
Author Organization [facility] Address [address] [place] [address] Phone Care Team Providers Care Brass Polisher Name Role Phone Ariel Lua Nikhil DPM Unavailable [phone] Aisha Medina APRN, HYDROCHLORIC ACID OPERATOR Primary Care Prov ider Juanjo Mclaughlin [...] for Nausea - 1st line. 20 Tablet Active allopurinol (ZYLOPRIM) 100 MG TabletIndications :Elevated uric acid in blood Take 1 Tablet by mouth daily. 90 Tablet 3 Active gabapentin (NEURONTIN) 300 MG CapsuleIndication s:Type 1 diabetes mellitus with diabetic polyneuropathy Take 1 Capsule by mouth 3 times daily. 90 Capsule 5 Active sodium bicarbonate 650 MG Tablet Take by mouth 2 times daily. Active Lokelma 10 g Pack MIX AND DRINK 1 PACKET BY MOUTH DAILY Active Insulin Disposable Pump (Omnipod 5 [id number] Intro Gen 5) Kit CHANGE PODS EVERY 3 DAYS 1 Kit Active amLODIPine (NORVASC) 2.5 MG Tablet Take [...] HR Take 3 mg by mouth. Active insulin lispro (HumaLOG) 100 UNIT/ML Solution PER INSULIN PUMP SETTINGS, UP TO 90 UNITS PER DAY 90 mL Active Insulin Disposable Pump (Omnipod 5 [id number] Pods Gen 5) Misc Every 3 days 30 Each Active LORazepam (ATIVAN) 1 MG TabletIndications :Anxiety TAKE 1 TABLET BY MOUTH EVERY 12 HOURS NEEDED FOR ANXIETY 60 Tablet Active LORazepam (ATIVAN) 1 MG TabletIndications :Anxiety TAKE 1 TABLET BY MOUTH EVERY 12 HOURS NEEDED FOR ANXIETY 60 Tablet 025 2024 Discontinued Active Problems Problem Noted Date Diagnosed Date At risk for rejection of transplanted organ 07/31 Superficial femoral artery occlusion 08/18/2024 Anxiety 08/02/2024 Cannabis abuse, uncomplicated 06/12/2024 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 Acute foot pain, left 04/14/2024 Presence of aortocoronary bypass graft 4 CAD (coronary artery disease) 11/02/2019 CKD (chronic kidney disease) stage 4, GFR 15-29 ml/min 02/18/2019 Overview (03/19/2019): NEPHRO following Pain in both feet 02/18/2019 Macroalbuminuric diabetic nephropathy 02/18/2019 High blood pressure 08/25/2018 Hyperlipidemia 08/25/2018 Diabetes mellitus type I 12/02/2016 Encounters Date Type Department Care Team Description 05/24/2025 Refill [facility] - Family [facility] #[address] [place] [address] Aisha Medina APRN, CNP Medication Refill 04/04/2025 Refill [facility] - [facility] #[address] [place] [address] Aisha Medina APRN, KASSI Medication Refill from Last 3 Months Immunizations Immunization Administration Dates Next Due Covid-19, Mrna, Lnp-s, Pf, 3 0 Mcg/0.3 Ml Dose (Smailex) 06/09/2021,09/18/2020,08/28/2020 Hepatitis A Vaccine 05/12/2019 Hepatitis A [...] Sign Reading Time Taken Comments Blood Pressure 122/72 02/15/2025 1:18 PM CDT Pulse 70 02/15/2025 1:18 PM CDT Temperature 36.7 C (98.1 F) 02/15/2025 1:18 PM CDT Respiratory Rate 22 02/15/2025 1:18 PM CDT Oxygen Saturation 97% 02/15/2025 1:18 PM CDT Inhaled Oxygen Concentration - - Weight 85.2 kg (187 lb 12.8 oz) 02/15/2025 1:18 PM CDT Height 175.3 cm (5' 9) 11/02/2024 11:3 4 AM CDT Body Mass Index 27.73 11/02/2024 11:34 AM CDT Plan of Treatment Upcoming Encounters Date Type Department Care Team (Late st Contact Info) Description 06/02/2025 9:45 AM PAD MACHINE FEEDER Office Visit [facility] - Family [facility] [address] [place] [address] Aisha Medina, SUPERVISOR FISH PROCESSING, HYDROCHLORIC ACID OPERATOR [address] [address] Health Maintenance Due Date Last Done Comments Varicella Immunization (1 of 2 - 13+ 2-dose series) 1996 Human Papillomavirus (HPV) Immunization (1 - Risk 3-dose SCDM series) 2010 Pneumococcal Immunization Combined (3 of 3 - PCV) 04/09/2017 04/09/2016, 10/30/2010 Hepatitis B Immunization (2 of 3 - 19+ 3-dose series) 02/11/2022 01/14/2022 Medicare Initial AWV [id number] 12/28/2022 Influenza Immunization (#1) 02/28/202504/30, 05/12/2024, 06/16/2023, Additional history exists SARS-COV-2 Immunization ( season) 2025 06/09/2021, 09/18/2020, 08/28/2020, Additional history exists Diabetes: Foot Exam 08/10/2025 08/10/2024, 06/18/2019, 06/18/2019, Additional history exists Diabetes: Nephropathy Screening 10/19/2025 10/19/2024, 12/04/2021, 01/24/2021, Additional history exists Diabetes: Hemoglobin A1c 10/27/2025 025, 04/06/2025, 01/26/2025, Additional history exists Td Immunization Every 10 Years (Adults With 1 Tdap) 02/26/2026 02/27/2016, 11/08/2013 Diabetes: Eye Exam 03/15/2026 03/15/2025, 0 02/08/2025, 11/30/2024, Additional history exists Respiratory Syncytial Virus (RSV) Immunization (Adult) (1 - 1-dose 75+ series) 2058 Hepatitis C Virus (HCV) Screening Completed 06/12/2024, 05/06/2024, 04/18/2023, Additional history exists Meningococcal Immunization (ACWY) Aged Out No longer eligible based on patient's age to complete this topic Rotavirus Immunization Aged Out No lo nger eligible based on patient's age to complete this topic Procedures Procedure Name Priority Date/Time Associated Diagnosis Comments DILATED EYE EXAM 03/15/2025 1 2:00 AM CDT POCT GLYCOSYLATED HEMOGLOBIN Routine 08/10/2024 10:37 AM PAD MACHINE FEEDER Type 1 diabetes mellitus with nephropathy (HCC) CMP (COMPREHENSIVE METABOLIC PANEL) 12/04/2021 12:00 AM CDT from Last 3 Months or Most Recently Relevant to Health Maintenance Results * DILATED EYE EXAM (03/15/2025 12:00 AM CDT) 03/15/2025 us Provider Scan PROCEDURE/MINOR SURGICAL ORDERAB LES Final Result SCAN * (ABNORMAL) POCT GLYCOSYLATED HEMOGLOBIN (08/10/2024 10:37 AM PAD MACHINE FEEDER) HGB-A1C 7.7(A) 4 - 6 % Blood 08/10/2024 10:3 7 AM PAD MACHINE FEEDER us Rita Lynne MD POINT OF CARE TESTING (MANUAL) F inal Result * CMP (COMPREHENSIVE METABOLIC PANEL) (12/04/2021 12:00 AM CDT) 12/04/2021 us Not On File Provider CHEMISTRY ORDERABLES Final Result SCAN from Last 3 Months or Most Recently Relevant to Health Maintenance Insurance MEDICAID [place] MEDICARE C [facility] Care Teams Brass Polisher Relationship Specialty Start Date End Date Aisha Medina, SUPERVISOR FISH PROCESSING, HYDROCHLORIC ACID OPERATOR #[address] [address] PCP - General Advanced Practice Nurse 07/17/18 Ariel Lua DPM Consulting Physician Podiatry 12/02/16 Juanjo Mclaughlin MD [address] [place] [address] Consulting Physician Oncology 12/01/19 Rita Lynne MD #[address] [address] Consulting Physician Endocrinology 10/17/22
--- OUTSIDE RECORDS SUMMARY | 2025-05-25 13:46 | XMS_ITS | Encounter Summary ---
Author Organization [facility] Address [address] [place] [address] Phone Care Team Providers Care Sql Server Architect Name Role Phone Ariel Lua Nikhil DPM Unavailable [phone] Aisha Medina APRN, LEAD ASSEMBLER Primary Care Prov ider Juanjo Mclaughlin MD Unavailable Rita Lynne MD Unavailable Meron Gurrola RN Unavailable Unavailable Meron Gurrola RN Unavailable Unavailable Reason for Visit * Reason Comments Medication Refill Encounter Details Date Type Department Care Team (Late st Contact Info) Description 12/27/2022 [facility]ill [facility] [address] [place] [address] Aisha Medina APRN, LEAD ASSEMBLER #[address] [address] Medication Refill Social History Tobacco [...] 2 Signed by: Aisha Medina APRN, CNP [facility] * Telephone Encounter - Kaitlyn Mendieta RN - 12/27/2022 12:12 PM CDT Duplicate documented in this encounter Plan of Treatment Upcoming Encounters Date Type Department Care Team (Late st Contact Info) Description 06/02/2025 9:45 AM COMMUNICATIONS ATTENDANT Office Visit [facility] Medicine [facility] [address] [place] [address] Aisha Medina APRN, KASSI #[address] [address] documented as of this encounter Visit Diagnoses [...] documented as of this encounter Care Teams Sql Server Architect Relationship Specialty Start Date End Date Aisha Medina APRN, KASSI #[address] [address] PCP - General Advanced Practice Nurse 07/17/18 Ariel Lua DPM Consulting Physician Podiatry 12/02/16 Juanjo Mclaughlin MD [address] [address] Consulting Physician Oncology 12/01/19 Rita Lynne MD #[address] [address] Consulting Physician Endocrinology 10/17/22 Meron Gurrola, ZEINAB [place] Nurse Emotionally Impaired Teacher 01/09/24 01/15/24 Meron Gurrola RN [place] Nurse Emotionally Impaired Teacher 11/26/24 12/08/24 documented as of this encounter
--- OUTSIDE RECORDS SUMMARY | 2025-05-25 13:46 | XMS_ITS | Encounter Summary ---
Author Organization [facility] Address [address] [place] [address] Phone Care Team Providers Care Storeroom Supervisor Name Role Phone Ariel Lua Nikhil DPM Unavailable [phone] Aisha Medina APRN, TRANSITIONAL CARE NURSE Primary Care Prov ider Juanjo Mclaughlin MD Unavailable Rita Lynne MD Unavailable Meron Gurrola RN Unavailable Unavailable Meron Gurrola RN Unavailable Unavailable Reason for Visit * Reason Comments Medication Refill Encounter Details Date Type Department Care Team (Late st Contact Info) Description 11/17/2023 Refill [facility] - [facility] [address] [place] [address] Aisha Medina APRN, TRANSITIONAL CARE NURSE #[address] [address] Medication Refill Social History Tobacco [...] st Contact Info) Description 06/02/2025 9:45 AM TOOL ENGINEER Office Visit [facility] - Family Medicine [facility] [place] [address] [place] [address] Aisha Medina APRN, CNP [address] [address] documented as of this encounter Visit Diagnoses Not on filedocumented in this encounter Additional Health Concerns Assessment Noted Time PHQ-9 Depression Total Score: 0 07/07/19 2:00 PM TOOL ENGINEER documented as of this encounter Care Teams Storeroom Supervisor Relationship Specialty Start Date End Date Aisha Medina APRN, CNP #[address] [address] PCP - General Advanced Practice Nurse 07/17/18 Ariel Lua DPM Consulting Physician Podiatry 12/02/16 Juanjo Mclaughlin MD [address] [place] [address] Consulting Physician Oncology 12/01/19 Rita Lynne MD #2 [facility] [address] [place] [phone] Consulting Physician Endocrinology 10/17/22 Meron Gurrola RN [place] Nurse Crm Analyst 01/09/24 01/15/24 Meron Gurrola RN [place] Nurse Crm Analyst 11/26/24 12/08/24 documented as of this encounter
--- OUTSIDE RECORDS SUMMARY | 2025-05-25 13:46 | XMS_ITS | Encounter Summary ---
Author Organization [facility] Address [address] [place] [address] Phone Care Team Providers Care It Technician Name Role Phone Ariel Lua Nikhil DPM Unavailable [phone] Aisha Medina APRN, GAMING DEALER Primary Care Prov ider Juanjo Mclaughlin MD Unavailable Rita Lynne MD Unavailable Meron Gurrola RN Unavailable Unavailable Meron Gurrola RN Unavailable Unavailable Reason for Visit * Reason Comments Medication Refill Encounter Details Date Type Department Care Team (Late st Contact Info) Description 11/07/2020 [facility]ill [facility] #[address] [place] [address] Rita Lynne MD #[address] [address] Medication Refill Social History Tobacco [...] st Contact Info) Description 06/02/2025 9:45 AM LOAN REVIEWER Office Visit [facility] Family Medicine [facility] [address] [place] [address] Aisha Medina APRN, GAMING DEALER #[address] [address] documented as of this encounter Visit Diagnoses Not on filedocumented in this encounter Additional Health Concerns Assessment Noted Time PHQ-9 Depression Total Score: 0 07/01/19 20 11:36 AM LOAN REVIEWER documented as of this encounter Care Teams It Technician Relationship Specialty Start Date End Date Aisha Medina APRN, GAMING DEALER #[address] [address] PCP - General Advanced Practice Nurse 07/17/18 Ariel Lua DPM Consulting Physician Podiatry 12/02/16 Juanjo Mclaughlin MD [facility] [address] [address] Consulting Physician Oncology 12/01/19 Rita Lynne MD [address] [place] [address] [place] [address] Consulting Physician Endocrinology 10/17/22 Meron Gurrola, ZEINAB [place] Nurse Continuous Churn Buttermaker 01/09/24 01/15/24 Meron Gurrola RN [place] Nurse Continuous Churn Buttermaker 11/26/24 12/08/24 documented as of this encounter
--- OUTSIDE RECORDS SUMMARY | 2025-05-25 13:46 | XMS_ITS ---
Author Organization [facility] Address [address] [place] [address] Care Team Providers Care Delineator Name Role Phone Rita Lynne MD Unavailable Martha Worrell MD Unavailable [phone] Aisha Medina RN NEW GRADUATE-EXTRACTOR OPERATOR SOLVENT PROCESS Primary Care Provide r Transplant Episode Kidney Recipient [facility] ([place], [place]) - [facility] Organ Received: Left Kidney Transplanted on 06/13/2024 Marked as Active Follow-up on 06/13/2024 Kidney CoordinatorCotank Guzman RN Phone: N/A Fax: N/A Email: N/A [place] Organ Diagnosis Organ Primary Contributory Kidney Diabetes Mellitus - Type I Donor Information Organ ABO Source Meets Risk Criteria HLA Match Mismatches Cross Match Left Kidney Transplanted O DBD No A: B: DR: Left Kidney Donor Serology Results Anti-CMV No results on file EBV IgG No results on file Anti-HBcAb No results on file HBsAg No results on file HBV DNA No results on file Anti-HCV No results on file Anti-HIV I/II No results on file RPR/VDRL No results on file EBV IgM No results on file HBsAb No results on file Toxoplasm a No results on file SARS CoV-2 No results on file HIV MARY No results on file HCV MARY No results on file Care Team Name Role Phone Fax Email Mallorie Guzman RN Kidney Coordinator N/A N/A N/A Chip Rivera MD Referring Physician [phone] N/A Gabrielle Fournier Cell Assembly Pinner N/A N/A N/A Melinda Farfan LMSW Route Returner [phone] N/A N/A Events Post-Transplant Pre-Transplant Admitted: 06/12/2024 Referred: 02/12/2024 Transplanted: 06/13/2024 Evaluation began: 4 Discharged: 06/17/2024 Committee: 06/11/2024 UNOS qualified: 01/11/2022 Center waitlisted: 4 Dialysis History Dialysis History Start End Type Comments Center 05/01/2022 06/13/2024 Peritoneal Dialysis [facility] 01/11/2022 04/30/2022 In-center Hemodialysis [facility] D[facility] Information Center Phone Fax Address [facility] [phone] [address] [facility] [address]
--- OUTSIDE RECORDS SUMMARY | 2025-05-25 13:46 | XMS_ITS | Encounter Summary ---
Author Organization [facility] Address [address] [place] [address] Phone Care Team Providers Care Jewel Bearing Turner Name Role Phone Ariel Lua Nikhil DPM Unavailable [phone] Aisha Medina APRN, ADMINISTRATIVE INTERN Primary Care Prov ider Juanjo Mclaughlin MD Unavailable Rita Lynne MD Unavailable Meron Gurrola RN Unavailable Unavailable Meron Gurrola RN Unavailable Unavailable Reason for Visit * Reason Comments Medication Refill Encounter Details Date Type Department Care Team (Late st Contact Info) Description 11/22/2023 Refill [facility] [address] [place] [address] Rita Lynne MD [address] [address] Medication Refill Social History Tobacco [...] Pending Prescriptions Disp Refills Comfort EZ Pen [place] 31G X 6 MM Misc [Pharmacy Med [...] [facility] 02/02/24 Appointment Rita Lynne MD [facility] Matt Mendieta Showing future appointments within next 90 days and meeting all other requirements documented in this encounter Plan of Treatment Upcoming Encounters Date Type Department Care Team (Late st Contact Info) Description 06/02/2025 9:45 AM BODY SHOP ESTIMATOR Office Visit [facility] - Family Medicine - [place] [address] [place] [address] Aisha Medina APRN, CNP [address] [phone] documented as of this encounter Visit Diagnoses Not on filedocumented in this encounter Additional Health Concerns Assessment Noted Time PHQ-9 Depression Total Score: 0 07/07/19 24 2:00 PM BODY SHOP ESTIMATOR documented as of this encounter Care Teams Jewel Bearing Turner Relationship Specialty Start Date End Date Aisha Medina APRN, CNP #[address] [phone] PCP - General Advanced Practice Nurse 07/17/18 Ariel Lua DPM Consulting Physician Podiatry 12/02/16 Juanjo Mclaughlin MD [address] [place] [address] Consulting Physician Oncology 12/01/19 Rita Lynne MD #[address] [address] Consulting Physician Endocrinology 10/17/22 Meron Gurrola RN [place] Nurse Shop Director 01/09/24 01/15/24 Meron Gurrola RN [place] Nurse Shop Director 11/26/24 12/08/24 documented as of this encounter
--- OUTSIDE RECORDS SUMMARY | 2025-05-25 13:46 | XMS_ITS ---
Author Organization [facility] Address [address] [facility] [place] [address] Care Team Providers Care Chief Dispatcher Name Role Phone Rita Lynne MD Unavailable Martha Worrell MD Unavailable Aisha Medina APRN-DEVOPS CONSULTANT Primary Care Provide r Active Problems Problem Noted Date Diagnosed Date [...] Rivera Transplant Date: 06/13/2025 Donor: UNOS ID: [id number] Match ID: [id number] Criteria: DBD KDPI: 25 CMV D+/R- EBV [...] Non-Reactive for HBV DNA Test performed with Trivitron Healthcareio Elite Assay Kit. Assessment & Plan (03/27/2025 [...] Godfrey Hollins 1985 Listing Date: 05/18/2021 Referring Natural Resource Manager: Dr. Chip Rivera Kidney Disease: DM1 Dialysis Info: Type: HD 01/11/2022, changed to PD 05/01/2022 Start: 01/11/2022 Blood Type: O POS Body mass index is 28.06 kg/m . Endocrinology: Dr Lynne @ [facility] in [place], [place] ALERTS : May need vasc surg assistance due to extensive calcifications. Immunosuppression Induction Method/Plan: Antithymocyte globulin (rabbit) (Thymoglobulin) 3mg/kg CKD d/t DMI Past Medical History: Diagnosis Date CAD (coronary artery disease) CKD (chronic kidney disease) stage 4, GFR 15-29 ml/min CKD (chronic kidney disease), stage IV Coronary artery disease 2020 stents x2 ARELI to mid LAD and ARELI it the RCA MANAGER DRUG SAFETY Diabetes mellitus type [address] Lynne Proposal Manager Writer. Insulin 05/30/1993. Diabetic retinopathy bilateral lasers x4 [...] CARDIAC STERNAL PRECAUTION 12/27/2019 Coronary Stent Placement 2020 Cyst Incision and Drainage tailbone HAND SURGERY broken fingers x2 IR ANGIO AV SHUNT NON DIRECT Orchiectomy Left 06/2006 Retinal Detachment Repair Left 2015 Social History Socioeconomic History Marital status: Single [...] CT , AFP 12.2 Raul Worrell MD engine designer Transplant Surgery Clinic Appt w/: Dr. Arias [...] pancreatic transplant. He needs to follow up fci with a booster plant operator and he was advised to lose more [...] not preclude listing: - consult with a booster plant operator - lose more weight - superficialization of [...] on 07/19/19. LHC: Multivessel coronary artery disease, MANAGER DRUG SAFETY of the proximal RCA, Severe mid- LAD stenosis, ~60-70%. - LHC on 12/27/2019 --> Successful ARELI to mid LAD, Successful AERLI to RCA MANAGER DRUG SAFETY, Impella used for renal protection (~125 cc [...] on the nuclear stress test with no belt changer the past few years. He is [...] on 07/19/19. LHC: Multivessel coronary artery disease, MANAGER DRUG SAFETY of the proximal RCA, Severe mid- LAD stenosis, ~60-70%. - LHC on 12/27/2019 --> Successful ARELI to mid LAD, Successful ARELI to RCA MANAGER DRUG SAFETY, Impella used for renal protection (~125 cc [...] daily Plan: - Will contact with primary hand button splitter for BP management 6) Hematological disorders - [...] on the nuclear stress test with no belt changer the past few years. He is [...] of the time was also spent in wsgk-kz-oejk interaction with the patient as well as formulating a plan for management. Thank you for allowing us to participate in the care of your patient and please do not hesitate to reach out to us if any questions or concerns. Rosalie Posada MD, [facility], [facility] Interventional and Structural Cardiology [facility], [facility] Dr. Maier 12/06/2021 Impression and Recommendations: 1. Type I DM 2. CKD 3. Multivessel CAD, ARELI to LAD and RCA MANAGER DRUG SAFETY with Impella support 4. Hx of testicular [...] check on BP control Sylvie Jurado MD Hotel Maintenance Technician [facility] Cardiology Dr. Jurado: [...] mg/kg Committee Discussion Details: Pt brought to [facility] to discuss possible listing. -Reviewed PMH and eval test results. -Reviewed previous listing for KP and delisting on 12/26/2022 due to drug usage and SI. Pt was to establish an ongoing relationship with a substance abuse counselor, provide negative drug screens, and establish with a psychiatrist and maintain that care for 1 year prior to re referral. Pt has maintained monthly visits with Joan Preshears at [facility] in [place]. She is both a certified [facility] Drug and Alcohol substance abuse counselor as well as [facility] licensed counselor to manage suicide [...] Committee Discussion Details: Pt was presented at [facility] to discuss positive drug screen. Reviewed with [...] mg/kg Committee Discussion Details: Pt brought to [facility] to discuss for possible listing. Reviewed PMH and current problem list. -Pt in evaluation for KP. PMH of CAD, diabetic retinopathy, and neuropathy. -Pt was a previous referral that required intervention s/p LHC. Stents x2. Completed DAPT. Reviewed DSE and NM stress completed with this eval. Team would like pt to have close follow up every 6 months with the apartment leasing specialist. -Reviewed PMH of testicular cancer. Reviewed notes [...] below CMV Igg: NEG EBV Igg: POS 2019 Varicella: POS MMR: immune Tox screen: see [...] estimated ejection fraction of 40% previously 43%. [facility]: 12/20/2022 Conclusion Patent stents in RCA and [...] cardiac cath for our mutual patient Godfrey Hollins who presented for pretransplant coronary evaluation. Cath showed: 1. Patent stents in RCA and LAD that were placed in 2019 2. 80% stenosis in mid LCx which [...] or text me on my cell phone [phone]. I appreciate the opportunity to participate in the care of your patient and look forward to being of service in the future as well. Sincerely, Alejandra Wellington MD, PhD, [facility]: 07/19/2019 ANGIOGRAPHY: i. Left main: short vessel that trifurcates into the LAD, LCx, and Ramus intermedius. ii. LAD: Long vessel that gives off a diagonal branch in the mid vessel after the first septal civil structural designer before wrapping around the apex distally. The prxoimal LAD has diffuse luminal irregularities. There is a severe 60-70% focal stenosis after the second septal civil structural designer. The LAD distal to this stenosis has [...] The rPDA and rPL fill distally via ybap-mn-lmoqj collaterals. v. Ramus intermedius: small caliber vessel with diffuse luminal irregularities. DOMINANCE: Right DIAGNOSTIC INTERPRETATIONS: 1. Multivessel coronary artery disease. 2. MANAGER DRUG SAFETY of the proximal RCA 3. Severe mid-LAD stenosis, ~60-70%. RECOMMENDATIONS AFTER DIAGNOSTIC CATHETERIZATION: Medical management of chronic CAD. Aspirin 81 mg QDAY indefinitely. High intensity statin therapy. Pt prescribed Metoprolol tartrate 12.5 mg PO BID before discharge from outpatient procedure. Aggressive modification of atherosclerotic risk factors. Heart team evaluation for revascularization via coronary artery bypass grafting vs multivessel PCI. [facility]: 12/27/2019 LESION UNDERGOING INTERVENTION : PCI TO [...] ELLEN-0 flow prior to PCI and MARY ELLEN-3flow after PCI. COMPLICATIONS: none HEMOSTASIS: At the conclusion of the procedure, hemostasis was achieved as described above after removal of all catheters, wires, and sheaths. INTERVENTIONAL CONCLUSIONS: 1. Successful ARELI to mid LAD 2. Successful ARELI to RCA MANAGER DRUG SAFETY 3. Impella used for renal protection (~125 [...] CONTRAST: 275 mL of Cystografin FINDINGS: A plating foreman radiograph was unremarkable. A Brown catheter was [...] Impression: It is the impression of this aids social worker that Godfrey Hollins has several positive factors [...] screen and SI. Has been going to [facility] month-psych clearance sent Plan: gaming cage worker to provide supportive services as needed. Patient appears to be a reasonable candidate for transplant from a psychosocial perspective. -Post transplant arrangement forms are needed prior to being listed. Psychiatric Consult Recommended: Yes related to:Substance Abuse Transplant Hr Recruiter: Melinda Farfan LMSW Abdominal Transplant Hr Recruiter [phone] Transplant Caregiver Confirmation Note Caregiver Confirmation Date Primary Name of Primary: Norman Hollins Relationship: Father - Confirmed during initial assessment Secondary Name of Secondary: Jennifer Hollins Relationship: Sister - Confirmed during initial assessment BARBARA Frenhc Jennifer K, RN Registered Nurse Specialty: Pattern Filer Telephone Encounter Signed Encounter Date: 06/25/2023 Received VM from Joan Wilson at [facility]. She has release to discuss pt. [phone]. I called her back and LVM. She called me back. She verified she both a certified [facility] Drug and Alcohol susbtance abuse counselor as well as [facility] licensed counselor he is seeing [...] checklist is pending. I called pt's counselor Joan directly. She states no concerns with pt [...] Overview (01/04/2020): kidney and pancreas Post-op pain Current Treatment and Therapy Plans No current plan information found. Past Treatment and Therapy Plans No past plan information found. Lifetime Dose Tracking * Chemical Lifetime Dose Automatic Entry Manual Entr y Fluoro Time 14 minutes 0 minutes 14 minutes Air Kerma 325 mGy 0 mGy 325 mGy Dose Area Product 50 Gy-cm2 0 Gy-cm2 50 Gy-cm2 Dose Length Product 4,440 mGy-cm 4,440 mGy-cm 0 mGy-cm Resolved Problems Problem Noted Date Diagnosed Date Resolved Date Restless leg syndrome 03/17/20252024 Assessment & Plan (03/18/2025 2:24 PM CDT): - PAWAN - Ropinirole Assessment & Plan (03/17/2025 8:51 PM CDT): - PAWAN - Ropinirole Coronary artery disease invo lving [place] coronary artery of [place] heart with angina pectoris 12/27/2019 02/04/2020
--- OUTSIDE RECORDS SUMMARY | 2025-05-25 13:46 | XMS_ITS | Encounter Summary ---
Author Organization [facility] Address [address] [place] [address] Phone Care Team Providers Care Overseamer Name Role Phone Ariel Lua Nikhil DPM Unavailable [phone] Aisha Medina APRN, LINE CLOSER Primary Care Prov ider Juanjo Mclaughlin MD Unavailable Rita Lynne MD Unavailable Meron Gurrola RN Unavailable Unavailable Meron Gurrola RN Unavailable Unavailable Reason for Visit * Reason Comments Medication Refill Encounter Details Date Type Department Care Team (Late st Contact Info) Description 11/20/2020 Refill [facility] End[facility] [address] [place] [address] Rita Lynne MD [address] [address] Medication Refill Social History Tobacco [...] st Contact Info) Description 06/02/2025 9:45 AM TIN CAN LABORER Office Visit [facility] - Family Medicine - [place] [address] [place] [address] Aisha Medina APRN, LINE CLOSER #[address] [address] documented as of this encounter Visit Diagnoses Not on filedocumented in this encounter Additional Health Concerns Assessment Noted Time PHQ-9 Depression Total Score: 0 07/01/19 20 11:36 AM TIN CAN LABORER documented as of this encounter Care Teams Overseamer Relationship Specialty Start Date End Date Aisha Medina APRN, LINE CLOSER #[address] [phone] PCP - General Advanced Practice Nurse 07/17/18 Ariel Lua DPM Consulting Physician Podiatry 12/02/16 Juanjo Mclaughlin MD [address] [place] [address] Consulting Physician Oncology 12/01/19 Rita Lynne MD #[address] [phone] Consulting Physician Endocrinology 10/17/22 Meron Gurrola, ZEINAB [place] Nurse Hall Clerk 01/09/24 01/15/24 Meron Gurrola RN [place] Nurse Hall Clerk 11/26/24 12/08/24 documented as of this encounter
--- OUTSIDE RECORDS SUMMARY | 2025-05-25 13:46 | XMS_ITS | Clinical Summary ---
Author Organization [facility] Address [address] [place] [address] Care Team Providers Care Income Tax Adjuster Name Role Phone Aisha Medina NP Primary Care Provider + Allergies No known active allergies Medications atorvastatin (LIPITOR) 40 mg tabletIndications:hyp erlipidemia Take 1 tablet (40 mg total) by mouth dinking machine operator before breakfast 2 03/25/20 17 Active amLODIPine (NORVASC) 10 mg tabletIndications:hyp ertension Take 1 tablet (10 mg total) by mouth dinking machine operator before breakfast Active aspirin 81 mg enteric coated tabletIndications:pre vention of thrombosis Take 1 tablet (81 mg total) by mouth dinking machine operator before breakfast Active metoprolol (LOPRESSOR) 25 mg [...] (02/28/2022): Added automatically from request for surgery [id number] 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 Previous bow maker gift wrapping Dr. Rod is leaving areas our make [...] type 1 diabetic I recommended he see national expansion recruiter and referral will be made. Date she does have sufficient amount insulin at this time. He stated after some chronic renal problems sought national expansion recruiter 1-[address] Rivera. No further details on this is known to me. He also has poor vision left by this secondary to trauma to the left eye. Will seeing c.o.d. clerk for this particular problem. Immunizations Immunization Administration Dates Next Due Pneumococcal Polysaccharide PPV23 10/30/2010 Surgical History Surgery Date Site/Laterality Comments OTHER SURGICAL HISTORY 06/30/2006 - 06/29/2007 Cancer, testicular: L testicle tumor removed FRACTURE SURGERY Right ORIF hand CARDIAC CATHETERIZATION Prep for 3V bypass CARDIAC STENT PLACEMENT Medical History Medical History Date Comments Type 1 diabetes mellitus 1993 Diabete s type 1 Neoplasm of testis 2007 Cancer, [...] oz pur e alcohol) less than 1x/month [facility] Utilities Answer Date Recorded In the past 12 months has [employer] gas, oil, or water [employer] threatened to shut off services in your home? No 04/18/2023 Social Connection and Isolation Panel Answer Date Recorded In a typical week, how many times do you talk on the phone with family, friends, or neighbors? More than three times a week 04/18/2023 How often do you get togethe r with friends or relatives? Twice a week 04/18/2023 How often do you attend [facility] or zoroastrianism services? Never 04/18/2023 Do you belong to any clubs o r organizations such as religion groups, unions, fraternal or athletic groups, or [...] place to sleep or slept in a halfway (including now)? No 04/18/2023 Personal Safety Answer [...] on file Legal Sex Male 11:58 PM DISABILITY COORDINATOR Gender Identity Not on file Sexual Orientation [...] of 2 - 13+ 2-dose series) 1996 HPV Vaccines (1 - 3-dose SCD M series) 2010 Pneumococcal vaccine <65 (2 of 2 - PCV) 04/09/2017 04/09/2016, 10/30/2010 Depression Screening 02/12/2019 02/12/2018, 11/30/2017, 11/30/2017 Foot Exam 02/12/2019 02/12/2018 Regular Well Visit/Exam 18-64 02/12/2019 02/12/2018 Dilated Eye Exam 08/02/2021 08/02/2020, 07/20/2020 Hemoglobin A1C 06/26/2023 12/25/2022, 11/28, 12/08/2020, Additional history exists Lipid Panel 12/26/2023 12/25/2022, 11/28, 12/08/2020, Additional history exists eGFR 04/19/2024 04/19/2023, 03/31, 04/17/2023, Additional history exists Covid-19 Vaccine (4 - 2024-2 6 season) 2025 06/09/2021, 09/18/2020, 08/28/2020 Influenza Vaccine (#1) 2025 , 07/30/2017, 04/09/2016, Additional history exists DTaP/Tdap/Td Vaccine (3 - Td or Tdap) 02/26/2026 02/27/2016, 11/08/2013 Hepatitis B Screening Completed 01/14/2022 Hepatitis C Screening Completed 04/18/2023 Medical Devices Implanted Type Area Welding Machine Operator Thermit Device Identifier Shelf Expiration Date Model / Serial / Lot Stents N/A: Heart [employer] Jourdan Curl Cath 62cm 2 Cuff Kit Peritoneum Catheter Dialysis [id number] - [id number] Implanted:Qty : 1 on 03/28/2022 by Rhona Concepcion MD at [facility] N/A: Abdomen [employer] [id number] 08/27/2026 [id number] / / [id number] Procedures Procedure Name Priority Date/Time Associated Diagnosis [...] BLOOD ORDERABLES Final Re sult KAILEE MCKINNEY (DEANN) [address] [facility] Department [place] [address] * Hepatitis panel, acute Blood (04/18/2023 5:26 PM CDT) Hep A IgM Nonreactive Nonreactive Comment: Interpretive Data: If Hep A IgM Ab is reported as Equivocal, a new sample should be drawn in two weeks for testing. Current interpretive data was last revised on 19. Testing performed by: [facility], [address] [place] [address]., [id number] Hep B core IgM Nonreactive Nonreactive Trupti MCKINNEY (DEANN) Comment: Interpretive Data If HepB Core IgM Ab is reported as Equivocal, a new sample should be drawn in two weeks for testing. Current interpretive data was last revised on 19. Testing performed by: [facility], [address] [place] [address]., [id number] Hep C Ab Nonreactive Nonreactive KAILEE MCKINNEY [...] last revised on 2019. Testing performed by: [address] [address] HepBsAg Nonreactive Nonreactive KAILEE MCKINNEY (DEANN) Comment:Testing performed by : [address] [address] Blood 04/18/2023 5:26 PM CDT 04/18/2023 6:58 PM CDT us Chip Rivera MD LAB MICROBIOLOGY - GENERAL OR DERABLES Final Result KAILEE MCKINNEY (MATHESON) [address] [facility] Department [place] [address] * (ABNORMAL) Hemoglobin A1c (02/12/2018 12:13 PM [...] Agency Comment Performing Organization Information: Site ID: [id number] Name: [facility] Address: [address] [place] [id number] Director: Guille Logan D.O., MPH us Guille Zavala MD LAB BLOOD ORDERABLES Final Result Performing Organization Address [facility]/ZIP Co de Phone Number [facility] [place] * (ABNORMAL) Lipid panel (02/12/2018 12:13 PM [...] LDL-C. Omero MORTON et al. FRANCIE. 2013;310(19): 7511-5893 (http://education.[employer].Xingyun.cn/faq/PSY187) Chol/HDL ratio 8.0(H) <5.0 (calc) [facility] [...] Performing Organization Information: Site ID: [id number] Name: [facility] Address: [address] [place] [address] [place] [address] Director: Guille Logan D.O., MPH Guille Zavala MD LAB BLOOD ORDERABLES Final Result [facility] [place] from Last 3 Months or Most Recently Relevant to Health Maintenance Insurance [facility] MEDICARE MEDICARE [place] Advance Directives For more information, please contact: [phone] * Full Code (Latest Code Status on File) Date Activated Date Inactivated Comments 04/17/2023 3:14 PM 04/19/2023 5:23 PM Care Teams Income Tax Adjuster Relationship Specialty Start Date End Date Aisha Medina NP [address] [place] [address] PCP - General 06/03/19
--- OUTSIDE RECORDS SUMMARY | 2025-05-25 13:46 | XMS_ITS | Encounter Summary ---
Author Organization [facility] Address [address] [place] [address] Phone Care Team Providers Care Clock Smith Name Role Phone Ariel Lua Nikhil DPM Unavailable [phone] Aisha Medina APRN, PRESS FEEDER BROOMCORN Primary Care Prov ider Juanjo Mclaughlin MD Unavailable Rita Lynne MD Unavailable Meron Gurrola RN Unavailable Unavailable Meron Gurrola RN Unavailable Unavailable Reason for Visit * Reason Comments Medication Refill Encounter Details Date Type Department Care Team (Late st Contact Info) Description 08/25/2020 Refill [facility] - Family Medicine [facility] #2 [place] [address] Aisha Medina APRN, PRESS FEEDER BROOMCORN #[address] [address] Medication Refill Social History Tobacco [...] st Contact Info) Description 06/02/2025 9:45 AM SENIOR FRONT END ENGINEER Office Visit [facility] - Family Medicine [facility] #2 [place] [address] Aisha Medina APRN, PRESS FEEDER BROOMCORN #2 [facility] [address] [place] [address] documented as of this encounter Visit Diagnoses Diagnosis Burning sensation of skin documented in this encounter Additional Health Concerns Assessment Noted Time PHQ-9 Depression Total Score: 0 07/01/19 11:36 AM SENIOR FRONT END ENGINEER documented as of this encounter Care Teams Clock Smith Relationship Specialty Start Date End Date Aisha Medina APRN, PRESS FEEDER BROOMCORN #2 [facility] [place] [address] PCP - General Advanced Practice Nurse 07/17/18 Ariel Lua DPM Consulting Physician Podiatry 12/02/16 Juanjo Mclaughlin MD [address] [place] [address] Consulting Physician Oncology 12/01/19 Rita Lynne MD #[address] [address] Consulting Physician Endocrinology 10/17/22 Meron Gurrola, RN [place] Nurse Print Color Matcher 01/09/24 01/15/24 Meron Gurrola, RN [place] Nurse Print Color Matcher 11/26/24 12/08/24 documented as of this encounter
--- OUTSIDE RECORDS SUMMARY | 2025-05-25 13:47 | XMS_ITS | Encounter Summary ---
Author Organization [facility] Address [address] [place] [address] Phone Care Team Providers Care Presser Hand Name Role Phone Ariel Lua Nikhil DPM Unavailable [phone] Aisha Medina APRN, NURSING DEPARTMENT CHAIRPERSON Primary Care Prov ider Juanjo Mclaughlin MD Unavailable Rita Lynne MD Unavailable Meron Gurrola RN Unavailable Unavailable Meron Gurrola RN Unavailable Unavailable Reason for Visit * Reason Comments Medication Refill Encounter Details Date Type Department Care Team (Late st Contact Info) Description 10/07/2022 Refill [facility] #2 [place] [address] Aisha Medina APRN, NURSING DEPARTMENT CHAIRPERSON #[address] [address] Medication Refill Social History Tobacco [...] Dept 11/19/22 Appointment Aisha Medina APRN, CNP [facility] [...] APRN, CNP [facility] 10/15/21 Office Visit StroAisha em APRN, CNP [facility] [place] Showing recent visits within past 365 days and meeting all other requirements Future Appointments Date Type Provider Dept 11/19/22 Appointment Aisha Medina APRN, CNP [facility] [place] Showing future appointments within next 90 days and meeting all other requirements documented in this encounter Plan of Treatment Upcoming Encounters Date Type Department Care Team (Late st Contact Info) Description 06/02/2025 9:45 AM FOREIGN AGENT Office Visit [facility] - Family Medicine - [place] #2 [place] [phone] Aisha Medina APRN, KASSI #[address] [address] documented as of this encounter Visit Diagnoses [...] documented as of this encounter Care Teams Presser Hand Relationship Specialty Start Date End Date Aisha Medina APRN, CNP #[address] [address] PCP - General Advanced Practice Nurse 07/17/18 Ariel Lua DPM Consulting Physician Podiatry 12/02/16 Juanjo Mclaughlin MD [address] [place] [address] Consulting Physician Oncology 12/01/19 Rita Lynne MD #[address] [phone] Consulting Physician Endocrinology 10/17/22 Meron Gurrola, ZEINAB [place] Nurse Automation Machine Builder 01/09/24 01/15/24 Meron Gurrola RN [place] Nurse Automation Machine Builder 11/26/24 12/08/24 documented as of this encounter
--- OUTSIDE RECORDS SUMMARY | 2025-05-25 13:47 | XMS_ITS | Encounter Summary ---
Author Organization [facility] Address [address] [place] [address] Phone Care Team Providers Care Laminating Machine Tender Name Role Phone Ariel Lua Nikhil DPM Unavailable [phone] Aisha Medina APRN, FARM CONTRACTOR Primary Care Prov ider Juanjo Mclaughlin MD Unavailable Rita Lynne MD Unavailable Meron Gurrola RN Unavailable Unavailable Meron Gurrola RN Unavailable Unavailable Reason for Visit * Reason Comments Medication Refill Encounter Details Date Type Department Care Team (Late st Contact Info) Description 12/23/2022 Refill [facility] - Family Medicine [facility] #2 [place] [address] Aisha Medina APRN, FARM CONTRACTOR #[address] [address] Medication Refill Social History Tobacco [...] st Contact Info) Description 06/02/2025 9:45 AM COMMISSIONS SPECIALIST Office Visit [facility] Medical [facility] - Family Medicine - [place] #2 [place] [address] Aisha Medina APRN, CNP #[address] [address] documented as of this encounter Visit Diagnoses Not on filedocumented in this encounter Additional Health Concerns Assessment Noted Time PHQ-9 Depression Total Score: 0 03/01/20 21 10:00 AM CDT documented as of this encounter Care Teams Laminating Machine Tender Relationship Specialty Start Date End Date Aisha Medina APRN, CNP #[address] [address] PCP - General Advanced Practice Nurse 07/17/18 Ariel Lua DPM Consulting Physician Podiatry 12/02/16 Juanjo Mclaughlin MD [address] [address] Consulting Physician Oncology 12/01/19 Rita Lynne MD #[address] [address] Consulting Physician Endocrinology 10/17/22 Meron Gurrola RN [place] Nurse Latent Print Examiner 01/09/24 01/15/24 Meron Gurrola RN [place] Nurse Latent Print Examiner 11/26/24 12/08/24 documented as of this encounter
--- OUTSIDE RECORDS SUMMARY | 2025-05-25 13:47 | XMS_ITS | Encounter Summary ---
Author Organization [facility] Address [address] [place] [address] Phone Care Team Providers Care Stair Builder Name Role Phone Ariel Lua Nikhil DPM Unavailable [phone] Aisha Medina APRN, CHRONOMETER TESTER Primary Care Prov ider Juanjo Mclaughlin MD Unavailable Rita Lynne MD Unavailable Meron Gurrola RN Unavailable Unavailable Meron Gurrola RN Unavailable Unavailable Reason for Visit * Reason Comments Medication Refill Encounter Details Date Type Department Care Team (Late st Contact Info) Description 02/21/2023 Refill [facility] - Family Medicine [facility] #2 [place] [address] Aisha Medina APRN, CHRONOMETER TESTER #[address] [address] Medication Refill Social History Tobacco [...] 04/11/22 Office Visit Aisha Medina APRN, CNP [facility] [place] Showing recent visits within past 365 days and meeting all other requirements Future Appointments No visits were found meeting these conditions. Showing future appointments within next 90 days and meeting all other requirements documented in this encounter Plan of Treatment Upcoming Encounters Date Type Department Care Team (Late st Contact Info) Description 06/02/2025 9:45 AM CARPORT ERECTOR Office Visit [facility] - Family Medicine - [place] #2 [place] [address] Aisha Medina APRN, CNP #[address] [address] documented as of this encounter Visit Diagnoses Not on filedocumented in this encounter Additional Health Concerns Assessment Noted Time PHQ-9 Depression Total Score: 0 03/01/20 21 10:00 AM CDT documented as of this encounter Care Teams Stair Builder Relationship Specialty Start Date End Date Aisha Medina APRN, CNP #[address] [address] PCP - General Advanced Practice Nurse 07/17/18 Ariel Lua DPM Consulting Physician Podiatry 12/02/16 Juanjo Mclaughlin MD [address] [place] [address] Consulting Physician Oncology 12/01/19 Rita Lynne MD #[address] [phone] Consulting Physician Endocrinology 10/17/22 Meron Gurrola RN [place] Nurse Watch Engine Operator 01/09/24 01/15/24 Meron Gurrola RN [place] Nurse Watch Engine Operator 11/26/24 12/08/24 documented as of this encounter
--- OUTSIDE RECORDS SUMMARY | 2025-05-25 13:47 | XMS_ITS | Encounter Summary ---
Author Organization [facility] Address [address] [place] [address] Phone Care Team Providers Care Tank Shop Supervisor Name Role Phone ChanellAriel kam Nikhil DPM Unavailable [phone] Aisha Medina APRN, FLYING SQUAD WORKER Primary Care Prov ider Juanjo Mclaughlin MD Unavailable Rita Lynne MD Unavailable Meron Gurrola RN Unavailable Unavailable Meron Gurrola RN Unavailable Unavailable Reason for Visit * Reason Comments Medication Refill Encounter Details Date Type Department Care Team (Late st Contact Info) Description 12/06/2022 Refill [facility] Family [facility] #2 [place] [address] Jean-Paul Mcneal MD #[address] [address] Medication Refill Social History Tobacco Use Types [...] [place] 12/11/21 Procedure Visit Claus Guaman MD [facility] Showing recent visits within past 365 days and meeting all other requirements Future Appointments No visits were found meeting these conditions. Showing future appointments within next 90 days and meeting all other requirements documented in this encounter Plan of Treatment Upcoming Encounters Date Type Department Care Team (Late st Contact Info) Description 06/02/2025 9:45 AM GRAVEL SCREENER Office Visit [facility] - Family Medicine - [place] #2 [place] [address] Aisha Medina APRN, CNP [address] [address] documented as of this encounter Visit Diagnoses Not on filedocumented in this encounter Additional Health Concerns Assessment Noted Time PHQ-9 Depression Total Score: 0 03/01/20 21 10:00 AM CDT documented as of this encounter Care Teams Tank Shop Supervisor Relationship Specialty Start Date End Date Aisha Medina APRN, CNP #2 [facility] [address] [place] [address] PCP - General Advanced Practice Nurse 07/17/18 Ariel Lua DPM Consulting Physician Podiatry 12/02/16 Juanjo Mclaughlin MD [address] [place] [address] Consulting Physician Oncology 12/01/19 Rita Lynne MD #2 [facility] [address] [place] [address] Consulting Physician Endocrinology 10/17/22 Meron Gurrola RN [place] Nurse Artillery Maintenance Supervisor 01/09/24 01/15/24 Meron Gurrola RN [place] Nurse Artillery Maintenance Supervisor 11/26/24 12/08/24 documented as of this encounter
--- OUTSIDE RECORDS SUMMARY | 2025-05-25 13:47 | XMS_ITS | Encounter Summary ---
Author Organization [facility] Address [address] [place] [address] Phone Care Team Providers Care Trauma Program Manager Name Role Phone Ariel Lua Nikhil DPM Unavailable [phone] Aisha Medina APRN, PERIPHERAL EDP EQUIPMENT OPERATOR Primary Care Prov ider Juanjo Mclaughlin MD Unavailable Rita Lynne MD Unavailable Meron Gurrola RN Unavailable Unavailable Meron Gurrola RN Unavailable Unavailable Reason for Visit * Reason Comments Medication Refill Encounter Details Date Type Department Care Team (Late st Contact Info) Description 06/08/2022 Refill [facility]inology [facility] #2 [place] [address] Rita Lynne MD #[address] [address] Medication Refill Social History Tobacco [...] Coronavirus/COVID-19? No / Unsure 05/21/2022 12:41 PM REINFORCEMENT MAKER documented as of this encounter Miscellaneous Notes * Telephone Encounter - Tammy Mccartney, RN - 06/11/2022 8:06 AM REINFORCEMENT MAKER Requested Prescriptions Pending Prescriptions Disp Refills ??? Continuous Blood Gluc Sensor (Dexcom G6 Sensor) Misc [Pharmacy Med Name: DEXCOM G6 SENSOR MISC]3 Each 3 Sig: CHANGE SENSOR EVERY 10 DAYS Next appt: Message left to schedule follow up. FORCEMENT MAKER documented in this encounter Plan of Treatment Upcoming Encounters Date Type Department Care Team (Late st Contact Info) Description 06/02/2025 9:45 AM REINFORCEMENT MAKER [facility] Visit [facility] - Family Medicine [facility] #2 [place] [address] Aisha Medina APRN, PERIPHERAL EDP EQUIPMENT OPERATOR #[address] [address] documented as of this encounter Visit Diagnoses Not on filedocumented in this encounter Additional Health Concerns Assessment Noted Time PHQ-9 Depression Total Score: 0 03/01/20 21 10:00 AM CDT documented as of this encounter Care Teams Trauma Program Manager Relationship Specialty Start Date End Date Aisha Medina APRN, PERIPHERAL EDP EQUIPMENT OPERATOR #[address] [address] PCP - General Advanced Practice Nurse 07/17/18 Ariel Lua DPM Consulting Physician Podiatry 12/02/16 Juanjo Mclaughlin MD [address] [place] [address] Consulting Physician Oncology 12/01/19 Rita Lynne MD #[address] [address] Consulting Physician Endocrinology 10/17/22 Meron Gurrola RN [place] Nurse Rim Technician 01/09/24 01/15/24 Meron Gurrola RN [place] Nurse Rim Technician 11/26/24 12/08/24 documented as of this encounter
--- OUTSIDE RECORDS SUMMARY | 2025-05-25 13:47 | XMS_ITS | Encounter Summary ---
Author Organization [facility] Address [address] [place] [address] Phone Care Team Providers Care Medical Management Trainer Name Role Phone ChanellAriel kam Nikhil DPM Unavailable [phone] Aisha Medina APRN, TRAVEL FREIGHT AND PASSENGER AGENT Primary Care Prov ider Juanjo Mclaughlin MD Unavailable Rita Lynne MD Unavailable Meron Gurrola RN Unavailable Unavailable Meron Gurrola RN Unavailable Unavailable Reason for Visit * Reason Comments Medication Refill Encounter Details Date Type Department Care Team (Late st Contact Info) Description 07/24/2022 Refill [facility] - Family Medicine [facility] #2 [place] [phone] Jean-Paul Mcneal MD #[address] [address] Medication Refill Social History Tobacco Use Types [...] [place] 12/11/21 Procedure Visit Claus Guaman MD [facility] [place] 12/04/21 Office Visit Aisha Medina APRN, CNP [facility] [place] 10/15/21 Office Visit Aisha Medina APRN, CNP [facility] Showing recent visits within past 365 days and meeting all other requirements Future Appointments No visits were found meeting these conditions. Showing future appointments within next 90 days and meeting all other requirements ER HAND documented in this encounter Plan of Treatment Upcoming Encounters Date Type Department Care Team (Late st Contact Info) Description 06/02/2025 9:45 AM COATER HAND Office Visit [facility] - Family Medicine - [place] #2 [place] [address] Aisha Medina APRN, TRAVEL FREIGHT AND PASSENGER AGENT #[address] [place] [address] documented as of this encounter Visit Diagnoses Not on filedocumented in this encounter Additional Health Concerns Assessment Noted Time PHQ-9 Depression Total Score: 0 03/01/20 21 10:00 AM CDT documented as of this encounter Care Teams Medical Management Trainer Relationship Specialty Start Date End Date Aisha Medina APRN, KASSI #2 [facility] [address] [place] [address] PCP - General Advanced Practice Nurse 07/17/18 Ariel Lua DPM Consulting Physician Podiatry 12/02/16 Juanjo Mclaughlin MD [address] [place] [phone] Consulting Physician Oncology 12/01/19 Rita Lynne MD #2 [facility] [address] [place] [address] Consulting Physician Endocrinology 10/17/22 Meron Gurrola, ZEINAB [place] Nurse Laborer Construction Or Leak Gang 01/09/24 01/15/24 Meron Gurrola, RN [place] Nurse Laborer Construction Or Leak Gang 11/26/24 12/08/24 documented as of this encounter
--- OUTSIDE RECORDS SUMMARY | 2025-05-25 13:47 | XMS_ITS | Encounter Summary ---
Author Organization [facility] Address [address] [place] [address] Phone Care Team Providers Care Waiter/Waitress First Class Name Role Phone Ariel Lua Nikhil DPM Unavailable [phone] Aisha Medina APRN, MOPHEAD TRIMMER AND WRAPPER Primary Care Prov ider Juanjo Mclaughlin MD Unavailable Rita Lynne MD Unavailable Meron Gurrola RN Unavailable Unavailable Meron Gurrola RN Unavailable Unavailable Reason for Visit * Reason Comments Medication Refill Encounter Details Date Type Department Care Team (Late st Contact Info) Description 05/10/2022 Refill [facility] - Family Medicine [facility] #2 [place] [address] Aisha Medina APRN, MOPHEAD TRIMMER AND WRAPPER #[address] [address] Medication Refill Social History Tobacco [...] st Contact Info) Description 06/02/2025 9:45 AM ISO COORDINATOR Office Visit [facility] - Family Medicine [facility] #2 [place] [address] Aisha Medina APRN, MOPHEAD TRIMMER AND WRAPPER #2 [facility] [address] [place] [address] documented as of this encounter Visit Diagnoses [...] documented as of this encounter Care Teams Waiter/Waitress First Class Relationship Specialty Start Date End Date Aisha Medina APRN, MOPHEAD TRIMMER AND WRAPPER #2 [facility] [address] [place] [address] PCP - General Advanced Practice Nurse 07/17/18 Ariel Lua DPM Consulting Physician Podiatry 12/02/16 Juanjo Mclaughlin MD [address] [place] [address] Consulting Physician Oncology 12/01/19 Rita Lynne MD #2 [facility] [address] [place] [address] Consulting Physician Endocrinology 10/17/22 Meron Gurrola RN [place] Nurse Laundry Presser 01/09/24 01/15/24 Meron Gurrola RN [place] Nurse Laundry Presser 11/26/24 12/08/24 documented as of this encounter
--- OUTSIDE RECORDS SUMMARY | 2025-05-25 13:47 | XMS_ITS | Encounter Summary ---
Author Organization [facility] Address [address] [place] [address] Phone Care Team Providers Care Residential Supervisor Name Role Phone Ariel Lua Nikhil DPM Unavailable [phone] Aisha Medina APRN, PROFESSIONAL ORGANIZER Primary Care Prov ider Juanjo Mclaughlin MD Unavailable Rita Lynne MD Unavailable Meron Gurrola RN Unavailable Unavailable Meron Gurrola RN Unavailable Unavailable Reason for Visit * Reason Comments Medication Refill Encounter Details Date Type Department Care Team (Late st Contact Info) Description 07/11/2022 Refill [facility] - Family Medicine [facility] #2 [place] [address] Aisha Medina APRN, PROFESSIONAL ORGANIZER #[address] [address] Medication Refill Social History [...] Emma Hernadez RN - 07/11/2022 10:58 AM BOTTLING ROOM WORKER Refilled 07/09/2022 LING ROOM WORKER documented in this encounter Plan of Treatment Upcoming Encounters Date Type Department Care Team (Late st Contact Info) Description 06/02/2025 9:45 AM BOTTLING ROOM WORKER Office Visit [facility] Family [facility] #2 [place] [address] Aisha Medina APRN, PROFESSIONAL ORGANIZER #[address] [address] documented as of this encounter Visit Diagnoses [...] documented as of this encounter Care Teams Residential Supervisor Relationship Specialty Start Date End Date Aisha Medina APRN, PROFESSIONAL ORGANIZER #[address] [address] PCP - General Advanced Practice Nurse 07/17/18 Ariel Lua DPM Consulting Physician Podiatry 12/02/16 Juanjo Mclaughlin MD [address] [place] [address] Consulting Physician Oncology 12/01/19 Rita Lynne MD #[address] [address] Consulting Physician Endocrinology 10/17/22 Meron Gurrola, ZEINAB [place] Nurse Order Fulfillment Specialist 01/09/24 01/15/24 Meron Gurrola RN [place] Nurse Order Fulfillment Specialist 11/26/24 12/08/24 documented as of this encounter
--- OUTSIDE RECORDS SUMMARY | 2025-05-25 13:47 | XMS_ITS | Encounter Summary ---
Author Organization [facility] Address [address] [place] [address] Phone Care Team Providers Care Program Administrator Name Role Phone Ariel Lua Nikhil DPM Unavailable [phone] Aisha Medina APRN, SCRUB WHEEL OPERATOR Primary Care Prov ider Juanjo Mclaughlin MD Unavailable Rita Lynne MD Unavailable Meron Gurrola RN Unavailable Unavailable Meron Gurrola RN Unavailable Unavailable Reason for Visit * Reason Comments Medication Refill Encounter Details Date Type Department Care Team (Late st Contact Info) Description 07/12/2022 Refill [facility] - Family Medicine [facility] #2 [place] [address] Aisha Medina APRN, SCRUB WHEEL OPERATOR #[address] [address] Medication Refill Social History Tobacco [...] 30 30 Tablet Aisha Medina APRN, CNP [facility] Pharmac... CIPAL ARCHITECTURAL FIRM documented in this encounter Plan of Treatment Upcoming Encounters Date Type Department Care Team (Late st Contact Info) Description 06/02/2025 9:45 AM PRINCIPAL ARCHITECTURAL FIRM Office Visit [facility] #2 [place] [address] Aisha Medina APRN, CNP #[address] [address] documented as of this encounter Visit Diagnoses [...] documented as of this encounter Care Teams Program Administrator Relationship Specialty Start Date End Date Aisha Medina APRN, CNP #[address] [address] PCP - General Advanced Practice Nurse 07/17/18 Ariel Lua DPM Consulting Physician Podiatry 12/02/16 Juanjo Mclaughlin MD [address] [place] [address] Consulting Physician Oncology 12/01/19 Rita Lynne MD #[address] [address] Consulting Physician Endocrinology 10/17/22 Meron Gurrola RN [place] Nurse Utility Gelatin Maker 01/09/24 01/15/24 Meron Gurrola RN [place] Nurse Utility Gelatin Maker 11/26/24 12/08/24 documented as of this encounter
--- OUTSIDE RECORDS SUMMARY | 2025-05-25 13:47 | XMS_ITS | Encounter Summary ---
Author Organization [facility] Address [address] [place] [address] Phone Care Team Providers Care Bobbin Trucker Name Role Phone Ariel Lua Nikhil DPM Unavailable [phone] Aisha Medina APRN, BROILER MANAGER Primary Care Prov ider Juanjo Mclaughlin MD Unavailable Rita Lynne MD Unavailable Meron Gurrola RN Unavailable Unavailable Meron Gurrola RN Unavailable Unavailable Reason for Visit * Reason Comments Medication Refill Encounter Details Date Type Department Care Team (Late st Contact Info) Description 05/08/2022 Refill [facility] Family Medicine [facility] #2 [place] [address] Aisha Medina APRN, BROILER MANAGER #[address] [address] Medication Refill [...] st Contact Info) Description 06/02/2025 9:45 AM HALL DIRECTOR Office Visit [facility] Family Medicine [facility] #2 [place] [address] Aisha Medina APRN, BROILER MANAGER #2 [facility] [address] [place] [address] documented as of this encounter Visit Diagnoses [...] as of this encounter Care Teams Bobbin Trucker Relationship Specialty Start Date End Date Aisha Medina APRN, BROILER MANAGER #2 [facility] [address] [place] [address] PCP - General Advanced Practice Nurse 07/17/18 Ariel Lua DPM Consulting Physician Podiatry 12/02/16 Juanjo Mclaughlin MD [address] [place] [phone] Consulting Physician Oncology 12/01/19 Rita Lynne MD #2 [facility] [address] [place] [address] Consulting Physician Endocrinology 10/17/22 Meron Gurrola RN [place] Nurse Customer Development Manager 01/09/24 01/15/24 Meron Gurrola RN [place] Nurse Customer Development Manager 11/26/24 12/08/24 documented as of this encounter
--- OUTSIDE RECORDS SUMMARY | 2025-05-25 13:47 | XMS_ITS | Encounter Summary ---
Author Organization [facility] Address [address] [place] [address] Phone Care Team Providers Care Rn Relief Charge Name Role Phone Ariel Lua Nikhil DPM Unavailable [phone] Aisha Medina APRN, BRANCH MAKER Primary Care Prov ider Juanjo Mclaughlin MD Unavailable Rita Lynne MD Unavailable Meron Gurrola RN Unavailable Unavailable Meron Gurrola RN Unavailable Unavailable Reason for Visit * Reason Comments Medication Refill Encounter Details Date Type Department Care Team (Late st Contact Info) Description 03/07/2022 [facility]ill [facility] #2 [place] [address] Aisha Medina APRN, BRANCH MAKER #[address] [address] Medication Refill Social History Tobacco [...] [place] 10/15/21 Office Visit Aisha Medina APRN, KASSI Mendieta Showing recent visits within past 365 [...] st Contact Info) Description 06/02/2025 9:45 AM REHABILITATION AIDE/SCHEDULER Office Visit [facility] #2 [place] [address] Aisha Medina APRN, BRANCH MAKER #[address] [address] documented as of this encounter Visit Diagnoses Diagnosis Hypertension, unspecified type Burning sensation of skin documented in this encounter Additional Health Concerns Assessment Noted Time PHQ-9 Depression Total Score: 0 03/01/20 21 10:00 AM CDT documented as of this encounter Care Teams Rn Relief Charge Relationship Specialty Start Date End Date Aisha Medina APRN, BRANCH MAKER #[address] [address] PCP - General Advanced Practice Nurse 07/17/18 Ariel Lua DPM Consulting Physician Podiatry 12/02/16 Juanjo Mclaughlin MD [address] [place] [address] Consulting Physician Oncology 12/01/19 Rita Lynne MD #[address] [address] Consulting Physician Endocrinology 10/17/22 Meron Gurrola, RN [place] Nurse Chemical Milling Processor 01/09/24 01/15/24 Meron Gurrola, RN [place] Nurse Chemical Milling Processor 11/26/24 12/08/24 documented as of this encounter
--- OUTSIDE RECORDS SUMMARY | 2025-05-25 13:47 | XMS_ITS | Encounter Summary ---
Author Organization [facility] Address [address] [place] [address] Phone Care Team Providers Care Pleat Patternmaker Name Role Phone Ariel Lua Nikhil DPM Unavailable [phone] Aisha Medina APRN, SENIOR MEDICAL DIRECTOR Primary Care Prov ider Juanjo Mclaughlin MD Unavailable Rita Lynne MD Unavailable Meron Gurrola RN Unavailable Unavailable Meron Gurrola RN Unavailable Unavailable Reason for Visit * Reason Comments Medication Refill Encounter Details Date Type Department Care Team (Late st Contact Info) Description 05/09/2022 Refill [facility] #2 [place] [address] Aisha Medina APRN, SENIOR MEDICAL DIRECTOR #[address] [address] Medication Refill Social History Tobacco [...] st Contact Info) Description 06/02/2025 9:45 AM STORAGE AND BACKUP ADMINISTRATOR Office Visit [facility] #2 [place] [address] Aisha Medina APRN, SENIOR MEDICAL DIRECTOR #2 [facility] [address] [place] [address] documented as of this encounter Visit Diagnoses [...] documented as of this encounter Care Teams Pleat Patternmaker Relationship Specialty Start Date End Date Aisha Medina APRN, SENIOR MEDICAL DIRECTOR #2 [facility] [address] [place] [address] PCP - General Advanced Practice Nurse 07/17/18 Ariel Lua DPM Consulting Physician Podiatry 12/02/16 Juanjo Mclaughlin MD [address] [place] [address] [id number] Consulting Physician Oncology 12/01/19 Rita Lynne MD #2 [facility] [address] [place] [address] Consulting Physician Endocrinology 10/17/22 Meron Gurrola RN [place] Nurse Senior Dynamics Crm Developer 01/09/24 01/15/24 Meron Gurrola RN [place] Nurse Senior Dynamics Crm Developer 11/26/24 12/08/24 documented as of this encounter
--- OUTSIDE RECORDS SUMMARY | 2025-05-25 13:47 | XMS_ITS | Encounter Summary ---
Author Organization [facility] Address [address] [place] [address] Phone Care Team Providers Care Salesperson Recreational Vehicles Name Role Phone Ariel Lua DPM Unavailable [phone] Winston Medina APRN, ICE MAKER Primary Care Prov ider Juanjo Mclaughlin MD Unavailable Rita Lynne MD Unavailable Meron Gurrola RN Unavailable Unavailable Meron Gurrola RN Unavailable Unavailable Reason for Visit * Reason Comments Medication Refill Encounter Details Date Type Department Care Team (Late st Contact Info) Description 06/10/2022 Refill [facility] #2 [place] [address] Winston Medina APRN, ICE MAKER #[address] [address] Medication Refill Social History Tobacco [...] Coronavirus/COVID-19? No / Unsure 05/21/2022 12:41 PM VENDING MECHANIC documented as of this encounter Miscellaneous Notes * Telephone Encounter - Jade Vega RN - 06/11/2022 8:04 AM CST Pt is receiving 2 different doses from 2 different providers. ING MECHANIC * Telephone Encounter - Jade Vega RN - 06/11/2022 8:03 AM CST Images from the original note were not included. rOPINIRole HCl Dispensed Days Supply Quantity Provider Pharmacy ROPINIROLE 1MG TAB 06/09/2022 30 30 Tablet Winston Medina APRN, CNP [facility] ROPINIROLE 0.25MG TAB 05/17/2022 30 60 Tablet Martha Perkins MD [facility] ROPINIROLE 1MG TAB 05/07/2022 30 30 Tablet WINSTON MEDINA [facility]... ROPINIROLE 0.25MG TAB 04/16/2022 30 60 Tablet MARTHA PERKINS [facility] ROPINIROLE 1MG TAB 04/11/2022 30 30 Tablet WINSTON MEDINA [facility] ING MECHANIC documented in this encounter Plan of Treatment Upcoming Encounters Date Type Department Care Team (Late st Contact Info) Description 06/02/2025 9:45 AM VENDING MECHANIC [facility] Visit [facility] #2 [place] [address] Winston Medina APRN, ICE MAKER #[address] [phone] documented as of this encounter Visit Diagnoses [...] documented as of this encounter Care Teams Salesperson Recreational Vehicles Relationship Specialty Start Date End Date Winston Medina APRN, ICE MAKER #2 [facility] [address] [place] [address] PCP - General Advanced Practice Nurse 07/17/18 Ariel Lua DPM Consulting Physician Podiatry 12/02/16 Juanjo Mclaughlin MD [address] [place] [address] Consulting Physician Oncology 12/01/19 Rita Lynne MD #2 [facility] [address] [place] [address] Consulting Physician Endocrinology 10/17/22 Meron Gurrola RN [place] Nurse Air Bag Buffer 01/09/24 01/15/24 Meron Gurrola RN [place] Nurse Air Bag Buffer 11/26/24 12/08/24 documented as of this encounter
--- OUTSIDE RECORDS SUMMARY | 2025-05-25 13:47 | XMS_ITS | Encounter Summary ---
Author Organization [facility] Address [address] [place] [address] Phone Care Team Providers Care Sports Analyst Name Role Phone Ariel Lua Nikhil DPM Unavailable [phone] Aisha Medina APRN, IDENTIFICATION AND RECORDS COMMANDER Primary Care Prov ider Juanjo Mclaughlin MD Unavailable Rita Lynne MD Unavailable Meron Gurrola RN Unavailable Unavailable Meron Gurrola RN Unavailable Unavailable Reason for Visit * Reason Comments Medication Refill Encounter Details Date Type Department Care Team (Late st Contact Info) Description 04/03/2023 Refill [facility] #2 [place] [address] Aisha Medina APRN, IDENTIFICATION AND RECORDS COMMANDER #[address] [address] Medication Refill Social History Tobacco [...] st Contact Info) Description 06/02/2025 9:45 AM DIRECTOR OF CLINICAL EDUCATION Office Visit [facility] #2 [place] [address] Aisha Medina APRN, IDENTIFICATION AND RECORDS COMMANDER #[address] [address] documented as of this encounter Visit Diagnoses [...] documented as of this encounter Care Teams Sports Analyst Relationship Specialty Start Date End Date Aisha Medina APRN, IDENTIFICATION AND RECORDS COMMANDER #2 [facility] [address] [place] [address] PCP - General Advanced Practice Nurse 07/17/18 Ariel Lua DPM Consulting Physician Podiatry 12/02/16 Juanjo Mclaughlin MD [address] [place] [address] Consulting Physician Oncology 12/01/19 Rita Lynne MD #2 [facility] [address] [place] [address] Consulting Physician Endocrinology 10/17/22 Meron Gurrola, RN [place] Nurse Community Affairs Manager 01/09/24 01/15/24 Meron Gurrola RN [place] Nurse Community Affairs Manager 11/26/24 12/08/24 documented as of this encounter
--- OUTSIDE RECORDS SUMMARY | 2025-05-25 13:47 | XMS_ITS | Encounter Summary ---
Author Organization [facility] Address [address] [place] [address] Phone Care Team Providers Care Facing Slitter Name Role Phone Ariel Lua Nikhil DPM Unavailable [phone] Aisha Medina APRN, CONSTRUCTION SALES REPRESENTATIVE Primary Care Prov ider Juanjo Mclaughlin MD Unavailable Rita Lynne MD Unavailable Meron Gurrola RN Unavailable Unavailable Meron Gurrola RN Unavailable Unavailable Reason for Visit * Reason Onset Date Comments Medication Refill 07/12/2021 Encounter Details Date Type Department Care Team (Late st Contact Info) Description 07/12/2021 Refill [facility] - Family Medicine [facility] #2 [place] [address] Aisha Medina APRN, CONSTRUCTION SALES REPRESENTATIVE #[address] [phone] Medication Refill Social History Tobacco Use Types [...] COVID-19? No / Unsure 07/09/2021 3:54 PM SENIOR UNIX ADMINISTRATOR documented as of this encounter Miscellaneous Notes * Telephone Encounter - Jade Vega RN - 07/13/2021 9:39 AM CST Last Rx came from home care aide - do you want to order - [...] 03/01/21 Office Visit Aisha Medina APRN, KASSI Mendieta Showing recent visits within past 365 days and meeting all other requirements Future Appointments No visits were found meeting these conditions. Showing future appointments within next 90 days and meeting all other requirements OR UNIX ADMINISTRATOR * Telephone Encounter - Bryanna Anna - 07/12/2021 11:54 AM CST Received a faxed Rx request from pharmacy. Reordered refill medication(s) requested and pended for nurse and physician/SUMA review. Refill encounter routed to nurse Bridger's pool for processing. OR UNIX ADMINISTRATOR documented in this encounter Plan of Treatment Upcoming Encounters Date Type Department Care Team (Late st Contact Info) Description 06/02/2025 9:45 AM SENIOR UNIX ADMINISTRATOR Office Visit [facility] - Family Medicine [facility] #2 [place] [address] Aisha Medina APRN, CONSTRUCTION SALES REPRESENTATIVE #[address] [address] documented as of this encounter Visit Diagnoses Not on filedocumented in this encounter Additional Health Concerns Assessment Noted Time PHQ-9 Depression Total Score: 0 03/01/20 21 10:00 AM CDT documented as of this encounter Care Teams Facing Slitter Relationship Specialty Start Date End Date Aisha Medina APRN, CONSTRUCTION SALES REPRESENTATIVE #[address] [address] PCP - General Advanced Practice Nurse 07/17/18 Ariel Lua DPM Consulting Physician Podiatry 12/02/16 Juanjo Mclaughlin MD [address] [place] [address] Consulting Physician Oncology 12/01/19 Rita Lynne MD #[address] [address] Consulting Physician Endocrinology 10/17/22 Meron Gurrola, RN [place] Nurse Still Operator Whiskey 01/09/24 01/15/24 Meron Gurrola RN [place] Nurse Still Operator Whiskey 11/26/24 12/08/24 documented as of this encounter
--- OUTSIDE RECORDS SUMMARY | 2025-05-25 13:47 | XMS_ITS | Encounter Summary ---
Author Organization [facility] Address [address] [place] [address] Phone Care Team Providers Care Wastewater Treatment Supervisor Name Role Phone Ariel Lua Nikhil DPM Unavailable [phone] Aisha Medina APRN, AUTOMOBILE INSURANCE CLAIM EXAMINER Primary Care Prov ider Juanjo Mclaughlin MD Unavailable Rita yLnne MD Unavailable Meron Gurrola RN Unavailable Unavailable Meron Gurrola RN Unavailable Unavailable Reason for Visit * Reason Comments Medication Refill Encounter Details Date Type Department Care Team (Late st Contact Info) Description 09/07/2022 Refill [facility] #2 [place] [address] Aisha Medina APRN, AUTOMOBILE INSURANCE CLAIM EXAMINER #[address] [address] Medication Refill Social History Tobacco [...] 90 90 Tablet Aisha Medina APRN, CNP [facility] Pharmac documented in this encounter Plan of Treatment Upcoming Encounters Date Type Department Care Team (Late st Contact Info) Description 06/02/2025 9:45 AM MANUAL LATHE OPERATOR Office Visit [facility] - Family [facility] #2 [place] [address] Aisha Medina APRN, KASSI #[address] [address] documented as of this encounter Visit Diagnoses Diagnosis Hypertension, unspecified type documented in this encounter Additional Health Concerns Assessment Noted Time PHQ-9 Depression Total Score: 0 03/01/20 21 10:00 AM CDT documented as of this encounter Care Teams Wastewater Treatment Supervisor Relationship Specialty Start Date End Date Aisha Medina APRN, CNP #[address] [address] PCP - General Advanced Practice Nurse 07/17/18 Ariel Lua DPM Consulting Physician Podiatry 12/02/16 Juanjo Mclaughlin MD [address] [place] [address] Consulting Physician Oncology 12/01/19 Rita Lynne MD #[address] [address] Consulting Physician Endocrinology 10/17/22 Meron Gurrola, RN [place] Nurse Truck Driving Instructor 01/09/24 01/15/24 Meron Gurrola RN [place] Nurse Truck Driving Instructor 11/26/24 12/08/24 documented as of this encounter
--- OUTSIDE RECORDS SUMMARY | 2025-05-25 13:47 | XMS_ITS | Encounter Summary ---
Author Organization [facility] Address [address] [place] [address] Phone Care Team Providers Care Liability Analyst Name Role Phone Ariel Lua Nikhil DPM Unavailable [phone] Aisha Medina APRN, ADJUDICATION SPECIALIST Primary Care Prov ider Juanjo Mclaughlin MD Unavailable Rita Lynne MD Unavailable Meron Gurrola RN Unavailable Unavailable Meron Gurrola RN Unavailable Unavailable Reason for Visit * Reason Comments Medication Refill Encounter Details Date Type Department Care Team (Late st Contact Info) Description 05/24/2022 Refill [facility] #2 [place] [address] Aisha Medina APRN, ADJUDICATION SPECIALIST #[address] [address] Medication Refill Social History Tobacco [...] Coronavirus/COVID-19? No / Unsure 05/21/2022 12:41 PM CHURN DRILLER HELPER documented as of this encounter Miscellaneous Notes * Telephone Encounter - Emma Hernadez RN - 05/24/2022 9:41 AM CHURN DRILLER HELPER Refill requested too soon. 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, not stated as uncontrolled documented in this encounter Additional Health Concerns Assessment Noted Time PHQ-9 Depression Total Score: 0 03/01/20 21 10:00 AM CDT documented as of this encounter Care Teams Liability Analyst Relationship Specialty Start Date End Date Aisha Medina APRN, ADJUDICATION SPECIALIST #[address] [address] PCP - General Advanced Practice Nurse 07/17/18 Ariel Lua DPM Consulting Physician Podiatry 12/02/16 Juanjo Mclaughlin MD [address] [place] [address] Consulting Physician Oncology 12/01/19 Rita Lynne MD #[address] [address] Consulting Physician Endocrinology 10/17/22 Meron Gurrola RN [place] Nurse Asset Management Lead 01/09/24 01/15/24 Meron Gurrola RN [place] Nurse Asset Management Lead 11/26/24 12/08/24 documented as of this encounter
--- OUTSIDE RECORDS SUMMARY | 2025-05-25 13:47 | XMS_ITS | Encounter Summary ---
Author Organization [facility] Address [address] [place] [address] Phone Care Team Providers Care Judge Name Role Phone Ariel Lua Nikhil DPM Unavailable [phone] Aisha Medina APRN, ENGINE LATHE TENDER Primary Care Prov ider Juanjo Mclaughlin MD Unavailable Rita Lynne MD Unavailable Meron Gurrola RN Unavailable Unavailable Meron Gurrola RN Unavailable Unavailable Reason for Visit * Reason Comments Medication Refill Encounter Details Date Type Department Care Team (Late st Contact Info) Description 07/10/2022 Refill [facility] - Family Medicine [facility] #2 [place] [address] Aisha Medina APRN, ENGINE LATHE TENDER #[address] [address] Medication Refill Social History Tobacco [...] st Contact Info) Description 06/02/2025 9:45 AM SILK SCREEN PRINTING RACKER Office Visit [facility] #2 [place] [address] Aisha Medina APRN, ENGINE LATHE TENDER #[address] [address] documented as of this encounter Visit Diagnoses [...] documented as of this encounter Care Teams Judge Relationship Specialty Start Date End Date Aisha Medina APRN, ENGINE LATHE TENDER #[address] [address] PCP - General Advanced Practice Nurse 07/17/18 Ariel Lua DPM Consulting Physician Podiatry 12/02/16 Juanjo Mclaughlin MD [address] [place] [address] Consulting Physician Oncology 12/01/19 Rita Lynne MD #[address] [address] Consulting Physician Endocrinology 10/17/22 Meron Gurrola, ZEINAB [place] Nurse Dye House Supervisor 01/09/24 01/15/24 Meron Gurrola RN [place] Nurse Dye House Supervisor 11/26/24 12/08/24 documented as of this encounter
--- OUTSIDE RECORDS SUMMARY | 2025-05-25 13:47 | XMS_ITS | Encounter Summary ---
Author Organization [facility] Address [address] [place] [address] Phone Care Team Providers Care Surgical Appliance Fitter Name Role Phone Ariel Lua Nikhil DPM Unavailable [phone] Aisha Medina APRN, BACK LINE COOK Primary Care Prov ider Juanjo Mclaughlin MD Unavailable Rita Lynne MD Unavailable Meron Gurrola RN Unavailable Unavailable Meron Gurrola RN Unavailable Unavailable Reason for Visit * Reason Comments Medication Refill Encounter Details Date Type Department Care Team (Late st Contact Info) Description 12/07/2021 Refill [facility] #2 [place] [address] Aisha Medina APRN, BACK LINE COOK #[address] [address] Medication Refill Social History Tobacco [...] 12/04/21 Office Visit Aisha Medina APRN, KASSI Mendieta 10/15/21 Office Visit Aisha Medina APRN, KASSI [facility]ieta 03/01/21 Office Visit Aisha Medina APRN, KASSI [...] st Contact Info) Description 06/02/2025 9:45 AM TEST ADMINISTRATOR Office Visit [facility] #2 [place] [address] Aisha Medina APRN, BACK LINE COOK #2 [facility] [address] [place] [address] documented as of this encounter Visit Diagnoses Not on filedocumented in this encounter Additional Health Concerns Assessment Noted Time PHQ-9 Depression Total Score: 0 03/01/20 21 10:00 AM CDT documented as of this encounter Care Teams Surgical Appliance Fitter Relationship Specialty Start Date End Date Aisha Medina APRN, BACK LINE COOK #2 [facility] [address] [place] [address] PCP - General Advanced Practice Nurse 07/17/18 Ariel Lua DPM Consulting Physician Podiatry 12/02/16 Juanjo Mclaughlin MD [address] [place] [address] Consulting Physician Oncology 12/01/19 Rita Lynne MD #2 [facility] [address] [place] [address] Consulting Physician Endocrinology 10/17/22 Meron Gurrola, RN [place] Nurse Designer And Patternmaker 01/09/24 01/15/24 Meron Gurrola RN [place] Nurse Designer And Patternmaker 11/26/24 12/08/24 documented as of this encounter
--- OUTSIDE RECORDS SUMMARY | 2025-05-25 13:47 | XMS_ITS | Encounter Summary ---
Author Organization [facility] Address [address] [place] [address] Phone Care Team Providers Care Steam Powerplant Supervisor Name Role Phone Ariel Lua Nikhil DPM Unavailable [phone] Aisha Medina APRN, SPORTS LEADERSHIP INSTRUCTOR Primary Care Prov ider Juanjo Mclaughlin MD Unavailable Rita Lynne MD Unavailable Meron Gurrola RN Unavailable Unavailable Meron Gurrola RN Unavailable Unavailable Reason for Visit * Reason Comments Medication Refill Encounter Details Date Type Department Care Team (Late st Contact Info) Description 06/08/2022 Refill [facility] #2 [place] [address] Aisha Medina APRN, SPORTS LEADERSHIP INSTRUCTOR #[address] [address] Medication Refill Social History Tobacco [...] Coronavirus/COVID-19? No / Unsure 05/21/2022 12:41 PM ALGORITHM DEVELOPER documented as of this encounter Miscellaneous Notes [...] 05/21/22 Office Visit Aisha Medina APRN, KASSI Mendieta 04/11/22 Office Visit Aisha Medina APRN, KASSI [facility] 12/11/21 Procedure Visit Claus Guaman MD [facility] Mendieta 12/04/21 Office Visit Aisha Medina APRN, KASSI Mendieta 10/15/21 Office Visit Aisha Medina APRN, SPORTS LEADERSHIP INSTRUCTOR [facility] Showing recent visits within past 365 days and meeting all other requirements Future Appointments No visits were found meeting these conditions. Showing future appointments within next 90 days and meeting all other requirements RITHM DEVELOPER documented in this encounter Plan of Treatment Upcoming Encounters Date Type Department Care Team (Late st Contact Info) Description 06/02/2025 9:45 AM ALGORITHM DEVELOPER Office Visit [facility] - Family [facility] #2 [place] [address] Aisha Medina APRN, SPORTS LEADERSHIP INSTRUCTOR #2 [facility] [address] [place] [address] documented as of this encounter Visit Diagnoses Not on filedocumented in this encounter Additional Health Concerns Assessment Noted Time PHQ-9 Depression Total Score: 0 03/01/20 21 10:00 AM CDT documented as of this encounter Care Teams Steam Powerplant Supervisor Relationship Specialty Start Date End Date Aisha Medina APRN, SPORTS LEADERSHIP INSTRUCTOR #2 [facility] [address] [place] [address] PCP - General Advanced Practice Nurse 07/17/18 Ariel Lua DPM Consulting Physician Podiatry 12/02/16 Juanjo Mclaughlin MD [address] [place] [address] Consulting Physician Oncology 12/01/19 Rita Lynne MD #2 [facility] [address] [place] [address] Consulting Physician Endocrinology 10/17/22 Meron Gurrola, ZEINAB [place] Nurse Differential Specialist 01/09/24 01/15/24 Meron Gurrola RN [place] Nurse Differential Specialist 11/26/24 12/08/24 documented as of this encounter
--- OUTSIDE RECORDS SUMMARY | 2025-05-25 13:47 | XMS_ITS | Encounter Summary ---
Author Organization [facility] Address [address] [place] [address] Phone Care Team Providers Care Electronic Equipment Repairer Name Role Phone ChanellAriel kam Nikhil DPM Unavailable [phone] Aisha Medina APRN, BAIL ATTACHER Primary Care Prov ider Juanjo Mclaughlin MD Unavailable Rita Lynne MD Unavailable Meron Gurrola RN Unavailable Unavailable Meron Gurrola RN Unavailable Unavailable Reason for Visit * Reason Comments Medication Refill Encounter Details Date Type Department Care Team (Late st Contact Info) Description 09/04/2022 [facility]ill [facility] #2 [place] [phone] Jean-Paul Mcneal MD #[address] [address] Medication Refill Social History Tobacco Use Types [...] 05/21/22 Office Visit Aisha Medina APRN, KASSI [facility] [place] 04/11/22 Office Visit Aisha Medina APRN, CNP [facility] [place] 12/11/21 Procedure Visit Claus Guaman MD [facility] [place] 12/04/21 Office Visit Aisha Medina APRN, CNP [facility] [place] 10/15/21 Office Visit Aisha Medina APRN, KASSI [facility] [place] Showing recent visits within past 365 days and meeting all other requirements Future Appointments Date Type Provider Dept 11/19/22 Appointment Aisha Medina APRN, CNP [facility] [place] Showing future appointments within next 90 days and meeting all other requirements LATE CUTTER documented in this encounter Plan of Treatment Upcoming Encounters Date Type Department Care Team (Late st Contact Info) Description 06/02/2025 9:45 AM TEMPLATE CUTTER Office Visit [facility] Medical Group - Family Medicine - [place] #2 [place] [address] Aisha Medina APRN, BAIL ATTACHER #[address] [phone] documented as of this encounter Visit Diagnoses Not on filedocumented in this encounter Additional Health Concerns Assessment Noted Time PHQ-9 Depression Total Score: 0 03/01/20 21 10:00 AM CDT documented as of this encounter Care Teams Electronic Equipment Repairer Relationship Specialty Start Date End Date Aisha Medina APRN, KASSI #2 [facility] [address] [place] [address] PCP - General Advanced Practice Nurse 07/17/18 Ariel Lua DPM Consulting Physician Podiatry 12/02/16 Juanjo Mclaughlin MD [address] [place] [address] Consulting Physician Oncology 12/01/19 Rita Lynne MD #2 [facility] [address] [place] [address] Consulting Physician Endocrinology 10/17/22 Meron Gurrola, RN [place] Nurse Back Hanger 01/09/24 01/15/24 Meron Gurrola RN [place] Nurse Back Hanger 11/26/24 12/08/24 documented as of this encounter
--- OUTSIDE RECORDS SUMMARY | 2025-05-25 13:47 | XMS_ITS | Encounter Summary ---
Author Organization [facility] Address [address] [place] [address] Phone Care Team Providers Care Senior Mortgage Underwriter Name Role Phone Ariel Lua Nikhil DPM Unavailable [phone] Aisha Medina APRN, DORMITORY SUPERVISOR Primary Care Prov ider Juanjo Mclaughlin MD Unavailable Rita Lynne MD Unavailable Meron Gurrola RN Unavailable Unavailable Meron Gurrola RN Unavailable Unavailable Reason for Visit * Reason Comments Medication Refill Encounter Details Date Type Department Care Team (Late st Contact Info) Description 10/29/2022 Refill [facility] #2 [place] [address] Aisha Medina APRN, DORMITORY SUPERVISOR #[address] [address] Medication Refill Social History Tobacco [...] 05/21/22 Office Visit Aisha Medina APRN, CNP [facility] 04/11/22 Office Visit Aisha Medina APRN, K[facility]SI [facility] 12/11/21 Procedure Visit Claus Guaman MD [facility] 12/04/21 Office Visit Aisha Medina APRN, CNP [facility] Showing recent visits within past 365 days and meeting all other requirements Future Appointments Date Type Provider Dept 11/19/22 Appointment Aisha Medina APRN, CNP [facility] Showing future appointments within next 90 days and meeting all other requirements documented in this encounter Plan of Treatment Upcoming Encounters Date Type Department Care Team (Late st Contact Info) Description 06/02/2025 9:45 AM VEHICLE REFINISHER Office Visit [facility] - Family Medicine - [place] #2 [place] [address] Aisha Medina APRN, DORMITORY SUPERVISOR #[address] [phone] documented as of this encounter Visit Diagnoses Not on filedocumented in this encounter Additional Health Concerns Assessment Noted Time PHQ-9 Depression Total Score: 0 03/01/20 21 10:00 AM CDT documented as of this encounter Care Teams Senior Mortgage Underwriter Relationship Specialty Start Date End Date Aisha Medina APRN, DORMITORY SUPERVISOR #2 [facility] [address] [place] [address] PCP - General Advanced Practice Nurse 07/17/18 Ariel Lua DPM Consulting Physician Podiatry 12/02/16 Juanjo Mclaughlin MD [address] [place] [address] Consulting Physician Oncology 12/01/19 Rita Lynne MD #2 [facility] [address] [place] [phone] Consulting Physician Endocrinology 10/17/22 Meron Gurrola, ZEINAB [place] Nurse Slitter And Rewinder Machine Operator 01/09/24 01/15/24 Meron Gurrola RN [place] Nurse Slitter And Rewinder Machine Operator 11/26/24 12/08/24 documented as of this encounter
--- OUTSIDE RECORDS SUMMARY | 2025-05-25 13:47 | XMS_ITS | Encounter Summary ---
Author Organization [facility] Address [address] [place] [address] Phone Care Team Providers Care Order Checker Name Role Phone Chanell Ariel Nikhil DPM Unavailable [phone] Aisha Medina APRN, DIAGRAMMER Primary Care Prov ider Juanjo Mclaughlin MD Unavailable Rita Lynne MD Unavailable Meron Gurrola RN Unavailable Unavailable Meron Gurrola RN Unavailable Unavailable Reason for Visit * Reason Comments Medication Refill Encounter Details Date Type Department Care Team (Late st Contact Info) Description 07/11/2022 Refill [facility] Medical [facility] - Family Medicine [facility] #2 [place] [address] Cherelle Vargas, PAC #2 [place] [address] Medication Refill Social History Tobacco Use Types [...] [place] 12/11/21 Procedure Visit Claus Guaman MD [facility] [place] 12/04/21 Office Visit Aisha Medina APRN, CNP [facility] [place] 10/15/21 Office Visit Aisha Medina APRN, CNP [facility] Showing recent visits within past 365 days and meeting all other requirements Future Appointments No visits were found meeting these conditions. Showing future appointments within next 90 days and meeting all other requirements E COMPANION documented in this encounter Plan of Treatment Upcoming Encounters Date Type Department Care Team (Late st Contact Info) Description 06/02/2025 9:45 AM NURSE COMPANION Office Visit [facility] Medical Group - Family Medicine - [place] #2 [place] [phone] Aisha Medina APRN, DIAGRAMMER #[address] [place] [address] documented as of this encounter Visit Diagnoses Not on filedocumented in this encounter Additional Health Concerns Assessment Noted Time PHQ-9 Depression Total Score: 0 03/01/20 21 10:00 AM CDT documented as of this encounter Care Teams Order Checker Relationship Specialty Start Date End Date Aisha Medina APRN, KASSI #2 [facility] [address] [place] [address] PCP - General Advanced Practice Nurse 07/17/18 Ariel Lua DPM Consulting Physician Podiatry 12/02/16 Juanjo Mclaughlin MD [address] [place] [address] Consulting Physician Oncology 12/01/19 Rita Lynne MD #2 [facility] [address] [place] [address] Consulting Physician Endocrinology 10/17/22 Meron Gurrola, ZEINAB [place] Nurse Electrical Equipment Technician 01/09/24 01/15/24 Meron Gurrola, RN [place] Nurse Electrical Equipment Technician 11/26/24 12/08/24 documented as of this encounter
--- OUTSIDE RECORDS SUMMARY | 2025-05-25 13:47 | XMS_ITS | Encounter Summary ---
Author Organization [facility] Address [address] [place] [address] Phone Care Team Providers Care Mat Gauger Name Role Phone Ariel Lua Nikhil DPM Unavailable [phone] Aisha Medina APRN, PILL MACHINE OPERATOR Primary Care Prov ider Juanjo Mclaughlin MD Unavailable Rita Lynne MD Unavailable Meron Gurrola RN Unavailable Unavailable Meron Gurrola RN Unavailable Unavailable Reason for Visit * Reason Comments Medication Refill Encounter Details Date Type Department Care Team (Late st Contact Info) Description 12/26/2022 Refill [facility] #2 [place] [address] Aisha Medina APRN, PILL MACHINE OPERATOR #[address] [address] Medication Refill Social History Tobacco [...] 2 Signed by: Aisha Medina APRN, CNP [facility] documented in this encounter Plan of Treatment Upcoming Encounters Date Type Department Care Team (Late st Contact Info) Description 06/02/2025 9:45 AM AUTOMATIC WASHER MECHANIC Office Visit [facility] #2 [place] [address] Aisha Medina APRN, KASSI #[address] [address] documented as of this encounter Visit Diagnoses [...] documented as of this encounter Care Teams Mat Gauger Relationship Specialty Start Date End Date Aisha Medina APRN, CNP #[address] [address] PCP - General Advanced Practice Nurse 07/17/18 rAiel Lua DPM Consulting Physician Podiatry 12/02/16 Juanjo Mclaughlin MD [address] [place] [address] Consulting Physician Oncology 12/01/19 Rita Lynne MD #[address] [address] Consulting Physician Endocrinology 10/17/22 Meron Gurrola RN [place] Nurse Tour Actor 01/09/24 01/15/24 Meron Gurrola RN [place] Nurse Tour Actor 11/26/24 12/08/24 documented as of this encounter
--- OUTSIDE RECORDS SUMMARY | 2025-05-25 13:47 | XMS_ITS | Encounter Summary ---
Author Organization [facility] Address [address] [place] [address] Phone Care Team Providers Care Stunner Name Role Phone Ariel Lua Nikhil DPM Unavailable [phone] Aisha Medina APRN, WIRER HELPER Primary Care Prov ider Juanjo Mclaughlin MD Unavailable Rita Lynne MD Unavailable Meron Gurrola RN Unavailable Unavailable Meron Gurrola RN Unavailable Unavailable Reason for Visit * Reason Comments Medication Refill Encounter Details Date Type Department Care Team (Late st Contact Info) Description 10/04/2022 Refill [facility] #2 [place] [address] Aisha Medina APRN, WIRER HELPER #[address] [address] Medication Refill Social History Tobacco [...] [place] 12/11/21 Procedure Visit Claus Guaman MD [facility] [place] 12/04/21 Office Visit Aisha Medina APRN, CNP [facility] 10/15/21 Office Visit Aisha Medina APRN, KASSI [facility] [place] Showing recent visits within past 365 days and meeting all other requirements Future Appointments Date Type Provider Dept 11/19/22 Appointment Aisha Medina APRN, CNP [facility] Showing future appointments within next 90 days and meeting all other requirements Passed - Absence of nitrates on med list documented in this encounter Plan of Treatment Upcoming Encounters Date Type Department Care Team (Late st Contact Info) Description 06/02/2025 9:45 AM PULPWOOD DEALER Office Visit [facility] Medical Group - Family Medicine - [place] #2 [place] [phone] Aisha Medina APRN, WIRER HELPER #[address] [address] documented as of this encounter Visit Diagnoses Not on filedocumented in this encounter Additional Health Concerns Assessment Noted Time PHQ-9 Depression Total Score: 0 03/01/20 21 10:00 AM CDT documented as of this encounter Care Teams Stunner Relationship Specialty Start Date End Date Aisha Medina APRN, WIRER HELPER #2 [facility] [address] [place] [address] PCP - General Advanced Practice Nurse 07/17/18 Ariel Lua DPM Consulting Physician Podiatry 12/02/16 Juanjo Mclaughlin MD [address] [place] [address] Consulting Physician Oncology 12/01/19 Rita Lynne MD #2 [facility] [address] [place] [address] Consulting Physician Endocrinology 10/17/22 Meron Gurrola, RN [place] Nurse Reagent Tender Helper 01/09/24 01/15/24 Meron Gurrola, ZEINAB [place] Nurse Reagent Tender Helper 11/26/24 12/08/24 documented as of this encounter
--- OUTSIDE RECORDS SUMMARY | 2025-05-25 13:47 | XMS_ITS | Encounter Summary ---
Author Organization [facility] Address [address] [place] [address] Phone Care Team Providers Care Gill Box Tender Name Role Phone ChanellAriel kam Nikhil DPM Unavailable [phone] Aisha Medina APRN, INDUSTRIAL ROOF PLUMBER Primary Care Prov ider Juanjo Mclaughlin MD Unavailable Rita Lynne MD Unavailable Meron Gurrola RN Unavailable Unavailable Meron Gurrola RN Unavailable Unavailable Reason for Visit * Reason Comments Medication Refill Encounter Details Date Type Department Care Team (Late st Contact Info) Description 12/07/2022 Refill [facility] #2 [place] [phone] Jean-Paul Mcneal MD #[address] [address] Medication Refill Social History Tobacco Use Types [...] st Contact Info) Description 06/02/2025 9:45 AM SOFTWARE ARCHITECT Office Visit [facility] - [facility] - [place] #2 [place] [address] Aisha Medina APRN, INDUSTRIAL ROOF PLUMBER #[address] [address] documented as of this encounter Visit Diagnoses Not on filedocumented in this encounter Additional Health Concerns Assessment Noted Time PHQ-9 Depression Total Score: 0 03/01/20 21 10:00 AM CDT documented as of this encounter Care Teams Gill Box Tender Relationship Specialty Start Date End Date Aisha Medina APRN, CNP #[address] [address] PCP - General Advanced Practice Nurse 07/17/18 Ariel Lua DPM Consulting Physician Podiatry 12/02/16 Juanjo Mclaughlin MD [address] [place] [address] Consulting Physician Oncology 12/01/19 Rita Lynne MD #[address] [address] Consulting Physician Endocrinology 10/17/22 Meron Gurrola, RN [place] Nurse Business Systems Consultant 01/09/24 01/15/24 Meron Gurrola RN [place] Nurse Business Systems Consultant 11/26/24 12/08/24 documented as of this encounter
--- OUTSIDE RECORDS SUMMARY | 2025-05-25 13:47 | XMS_ITS | Encounter Summary ---
Author Organization [facility] Address [address] [place] [address] Phone Care Team Providers Care Oreman Name Role Phone Ariel Lua Nikhil DPM Unavailable [phone] Aihsa Medina APRN, TOE FORMER Primary Care Prov ider Juanjo Mclaughlin MD Unavailable Rita Lynne MD Unavailable Meron Gurrola RN Unavailable Unavailable Meron Gurrola RN Unavailable Unavailable Reason for Visit * Reason Comments Medication Refill Encounter Details Date Type Department Care Team (Late st Contact Info) Description 09/05/2022 Refill [facility] #2 [place] [address] Rita Lynne MD #[address] [address] Medication Refill Social History Tobacco [...] st Contact Info) Description 06/02/2025 9:45 AM ROLL PRESS OPERATOR Office Visit [facility] - Family Medicine - [place] #2 [place] [address] Aisha Medina APRN, TOE FORMER #[address] [address] documented as of this encounter Visit Diagnoses Not on filedocumented in this encounter Additional Health Concerns Assessment Noted Time PHQ-9 Depression Total Score: 0 03/01/20 21 10:00 AM CDT documented as of this encounter Care Teams [place]reman Relationship Specialty Start Date End Date iAsha Medina APRN, TOE FORMER #[address] [address] PCP - General Advanced Practice Nurse 07/17/18 Ariel Lua DPM Consulting Physician Podiatry 12/02/16 Juanjo Mclaughlin MD [address] [place] [address] Consulting Physician Oncology 12/01/19 Rita Lynne MD #[address] [address] Consulting Physician Endocrinology 10/17/22 Meron Gurrola, ZEINAB [place] Nurse Fire Management Officer 01/09/24 01/15/24 Meron Gurrola RN [place] Nurse Fire Management Officer 11/26/24 12/08/24 documented as of this encounter
--- OUTSIDE RECORDS SUMMARY | 2025-05-25 13:47 | XMS_ITS | Encounter Summary ---
Author Organization [facility] Address [address] [place] [address] Phone Care Team Providers Care Road Tester Name Role Phone Ariel Lua Nikhil DPM Unavailable [phone] Aisha Medina APRN, ROUTER OPERATOR RADIAL Primary Care Prov ider Juanjo Mclaughlin MD Unavailable Rita Lynne MD Unavailable Meron Gurrola RN Unavailable Unavailable Meron Gurrola RN Unavailable Unavailable Reason for Visit * Reason Comments Medication Refill Encounter Details Date Type Department Care Team (Late st Contact Info) Description 09/21/2022 Refill [facility] #2 [place] [address] Rita Lynne MD #[address] [address] Medication Refill Social History Tobacco [...] ??? Insulin Pen Needle (TRUEplus 5-Bevel Pen [place]) 31G X 6 MM Misc [Pharmacy Med Name: TRUEPLUS 5-BEVEL PE 31G X 6 MM MISC] 400 Each 3 Sig: USE 4 TIMES A DAY Next appt: Message sent to schedule follow up. documented in this encounter Plan of Treatment Upcoming Encounters Date Type Department Care Team (Late st Contact Info) Description 06/02/2025 9:45 AM AUTO GLASS INSTALLER Office Visit [facility] Family [facility] #2 [place] [address] Aisha Medina APRN, ROUTER OPERATOR RADIAL #[address] [address] documented as of this encounter Visit Diagnoses Not on filedocumented in this encounter Additional Health Concerns Assessment Noted Time PHQ-9 Depression Total Score: 0 03/01/20 21 10:00 AM CDT documented as of this encounter Care Teams Road Tester Relationship Specialty Start Date End Date Aisha Medina APRN, ROUTER OPERATOR RADIAL #[address] [address] PCP - General Advanced Practice Nurse 07/17/18 Ariel Lua DPM Consulting Physician Podiatry 12/02/16 Juanjo Mclaughlin MD [address] [place] [address] Consulting Physician Oncology 12/01/19 Rita Lynne MD #[address] [address] Consulting Physician Endocrinology 10/17/22 Meron Gurrola, ZEINAB [place] Nurse Orthopedically Impaired Teacher 01/09/24 01/15/24 Meron Gurrola RN [place] Nurse Orthopedically Impaired Teacher 11/26/24 12/08/24 documented as of this encounter
--- OUTSIDE RECORDS SUMMARY | 2025-05-25 13:47 | XMS_ITS | Encounter Summary ---
Author Organization [facility] Address [address] [place] [address] Phone Care Team Providers Care Training Generalist Name Role Phone Ariel Lua Nikhil DPM Unavailable [phone] Aisha Medina APRN, VERIFICATION REP Primary Care Prov ider Juanjo Mclaughlin MD Unavailable Rita Lynne MD Unavailable Meron Gurrola RN Unavailable Unavailable Meron Gurrola RN Unavailable Unavailable Reason for Visit * Reason Comments Medication Refill Encounter Details Date Type Department Care Team (Late st Contact Info) Description 09/02/2021 Refill [facility] Family Medicine [facility] #2 [place] [address] Aisha Medina APRN, VERIFICATION REP #[address] [address] Medication Refill Social History [...] 03/01/21 Office Visit Aisha Medina APRN, KASSI [facility] Showing recent visits within past [...] 03/01/21 Office Visit Aisha Medina APRN, KASSI [facility] Showing recent visits within past 365 days and meeting all other requirements Future Appointments No visits were found meeting these conditions. Showing future appointments within next 90 days and meeting all other requirements CINAL CHEMIST documented in this encounter Plan of Treatment Upcoming Encounters Date Type Department Care Team (Late st Contact Info) Description 06/02/2025 9:45 AM MEDICINAL CHEMIST Office Visit [facility] Medical Group - Family [facility] #2 [place] [address] Aisha Medina APRN, VERIFICATION REP #2 [facility] [address] [place] [address] documented as of this encounter Visit Diagnoses Diagnosis Hypertension, unspecified type Burning sensation of skin documented in this encounter Additional Health Concerns Assessment Noted Time PHQ-9 Depression Total Score: 0 03/01/20 21 10:00 AM CDT documented as of this encounter Care Teams Training Generalist Relationship Specialty Start Date End Date Aisha Medina APRN, VERIFICATION REP #2 [facility] [address] [place] [address] PCP - General Advanced Practice Nurse 07/17/18 Ariel Lua DPM Consulting Physician Podiatry 12/02/16 Juanjo Mclaughlin MD [address] [place] [address] Consulting Physician Oncology 12/01/19 Rita Lynne MD #[address] [address] Consulting Physician Endocrinology 10/17/22 Meron Gurrola, ZE[place]AB [place] Nurse Shower Maid 01/09/24 01/15/24 Meron Gurrola RN [place] Nurse Shower Maid 11/26/24 12/08/24 documented as of this encounter
--- OUTSIDE RECORDS SUMMARY | 2025-05-25 13:47 | XMS_ITS | Encounter Summary ---
Author Organization [facility] Address [address] [place] [address] Phone Care Team Providers Care Item Processing Clerk Name Role Phone Ariel Lua Nikhil DPM Unavailable [phone] Aisha Medina APRN, THIOKOL OPERATOR Primary Care Prov ider Juanjo Mclaughlin MD Unavailable Rita Lynne MD Unavailable Meron Gurrola RN Unavailable Unavailable Meron Gurrola RN Unavailable Unavailable Reason for Visit * Reason Comments Medication Refill Encounter Details Date Type Department Care Team (Late st Contact Info) Description 06/16/2023 Refill [facility] #2 [place] [address] Aisha Medina APRN, THIOKOL OPERATOR #[address] [address] Medication Refill Social History Tobacco [...] Provider Dept 07/01/23 Appointment Aisha Medina APRN, CNP [facility] Showing future appointments within next 90 days and meeting all other requirements DENT ENGINEER documented in this encounter Plan of Treatment Upcoming Encounters Date Type Department Care Team (Late st Contact Info) Description 06/02/2025 9:45 AM INCIDENT ENGINEER Office Visit [facility] Medicine - [place] #2 [place] [address] Aisha Medina APRN, KASSI #[address] [address] documented as of this encounter Visit Diagnoses Diagnosis 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, not stated as uncontrolled documented in this encounter Additional Health Concerns Assessment Noted Time PHQ-9 Depression Total Score: 0 03/01/20 21 10:00 AM CDT documented as of this encounter Care Teams Item Processing Clerk Relationship Specialty Start Date End Date Aisha Medina APRN, CNP #[address] [address] PCP - General Advanced Practice Nurse 07/17/18 Ariel Lua DPM Consulting Physician Podiatry 12/02/16 Juanjo Mclaughlin MD [address] [place] [address] Consulting Physician Oncology 12/01/19 Rita Lynne MD #[address] [address] Consulting Physician Endocrinology 10/17/22 Meron Gurrola, ZEINAB [place] Nurse Deputy Sheriff 01/09/24 01/15/24 Meron Gurrola RN [place] Nurse Deputy Sheriff 11/26/24 12/08/24 documented as of this encounter
--- OUTSIDE RECORDS SUMMARY | 2025-05-25 13:47 | XMS_ITS | Encounter Summary ---
Author Organization [facility] Address [address] [place] [address] Phone Care Team Providers Care Automobile Body Worker Name Role Phone Ariel Lua Nikhil DPM Unavailable [phone] Aisha Medina APRN, CIGAR PACKER [employer] PICKER Primary Care Prov ider Juanjo Mclaughlin MD Unavailable Rita Lynne MD Unavailable Meron Gurrola RN Unavailable Unavailable Meron Gurrola RN Unavailable Unavailable Reason for Visit * Reason Comments Medication Refill Encounter Details Date Type Department Care Team (Late st Contact Info) Description 09/06/2022 Refill [facility] - [facility] [address] [place] [address] Aisha Medina APRN, CIGAR PACKER AND PICKER [address] [address] Medication Refill Social History Tobacco [...] RN - 09/06/2022 10:07 AM CST duplicate WARE SOLUTIONS ARCHITECT documented in this encounter Plan of Treatment Upcoming Encounters Date Type Department Care Team (Late st Contact Info) Description 06/02/2025 9:45 AM SOFTWARE SOLUTIONS ARCHITECT Office Visit [facility] - [facility] - [place] [address] [place] [address] Aisha Medina APRN, CIGAR PACKER AND PICKER [address]2 [facility] [address] [place] [phone] documented as of this encounter Visit Diagnoses Diagnosis Hypertension, unspecified type documented in this encounter Additional Health Concerns Assessment Noted Time PHQ-9 Depression Total Score: 0 03/01/20 21 10:00 AM CDT documented as of this encounter Care Teams Automobile Body Worker Relationship Specialty Start Date End Date Aisha Medina APRN, [employer]IG[employer] P[employer]ER [employer] PICKER [address]2 [facility] [address] [place] [phone] PCP - General Advanced Practice Nurse 07/17/18 Ariel Lua DPM Consulting Physician Podiatry 12/02/16 Juanjo Mclaughlin MD [address] [place] [id number] Consulting Physician Oncology 12/01/19 Rita Lynne MD #2 [facility] [address] [place] [phone] Consulting Physician Endocrinology 10/17/22 Gurrola, Meron M, RN [place] Nurse Vp Site 01/09/24 01/15/24 Meron Gurrola RN [place] Nurse Vp Site 11/26/24 12/08/24 documented as of this encounter
[2025-05-25 13:54] VITALS: BP 148/97; PULSE 75; RESP 16; TEMP 36.7; O2SAT 99
--- NOTE | 2025-05-25 13:55 | ED.LOWEXIN ---
HPI - Extremity Injury (Lower) General Chief Complaint: Extremity Injury, Lower Stated Complaint: Right Foot Injury Time Seen by Provider: 05/25/25 13:55 Source: patient and RN notes reviewed Mode of arrival: ambulatory Limitations: no limitations History of Present Illness HPI Narrative: 40-year-old male presents with concern for injury to his right foot. Reports today he was kicking a dog toy when he accidentally kicked his eye abdomen. He reports bruising and pain to the 1st and 2nd digits. He has used ice. MD complaint: foot injury Related Data Home Medications ?Medication ?Instructions ?Recorded ?Confirmed ?Last Taken ?Type allopurinol 100 mg tablet mg 11/21/24 01/26/25 Unknown History amlodipine 2.5 mg tablet mg 11/21/24 01/26/25 Unknown History aspirin 81 mg chewable tablet 11/21/24 01/26/25 Unknown History calcitriol 0.5 mcg capsule mcg 11/21/24 01/26/25 Unknown History carvedilol 12.5 mg tablet mg 11/21/24 01/26/25 Unknown History cinacalcet 30 mg tablet mg PO 11/21/24 01/26/25 Unknown History gabapentin 300 mg capsule mg 11/21/24 01/26/25 Unknown History hydrochlorothiazide 25 mg tablet mg 11/21/24 01/26/25 Unknown History insulin pump cart,auto,BT,G6/7 11/21/24 01/26/25 Unknown History (Omnipod 5 G6-G7 Pods (Gen 5) subcutaneous cartridge) letermovir 480 mg tablet (Prevymis) mg PO 11/21/24 01/26/25 Unknown History lorazepam 1 mg tablet mg 11/21/24 01/26/25 Unknown History metoclopramide HCl 5 mg tablet mg 11/21/24 01/26/25 Unknown History mycophenolate sodium 180 mg mg PO 11/21/24 01/26/25 Unknown History tablet,delayed release pantoprazole 40 mg tablet,delayed mg PO 11/21/24 01/26/25 Unknown History release prednisone 5 mg tablet mg 11/21/24 01/26/25 Unknown History rivaroxaban 2.5 mg tablet (Xarelto) mg 11/21/24 01/26/25 Unknown History ropinirole 1 mg tablet mg 11/21/24 01/26/25 Unknown History rosuvastatin 20 mg tablet mg 11/21/24 01/26/25 Unknown History sodium bicarbonate 650 mg tablet mg 11/21/24 01/26/25 Unknown History sodium zirconium cyclosilicate 10 g PO 11/21/24 01/26/25 Unknown History gram oral powder packet (Lokelma) tacrolimus 1 mg tablet,extended mg PO 11/21/24 01/26/25 Unknown History release 24 hr (Envarsus XR) Allergies Allergy/AdvReac Type Severity Reaction Status Date / Time No Known Allergies Allergy Verified 05/25/25 13:52 Review of Systems Review of Systems: CONSTITUTIONAL: Denies malaise, chills, sweats, or fever. SKIN: Denies rash or itching, open skin, laceration, abrasion, redness, warmth, swelling. MUSCULOSKELETAL: Reports pain to the 1st and 2nd digits of the right foot, reports bruising NEUROLOGIC: Denies numbness, weakness All systems reviewed & are unremarkable except as noted in HPI and below PMFSH Social History Social History Smoking status: Unknown if ever smoked Comments At time of signature, agree with nursing past medical, surgical, social and family history. There is no relevant family history pertinent to the presenting complaint Exam Narrative: GENERAL: Well-appearing, well-nourished, and in no acute distress. HEAD: Normocephalic, atraumatic. EYES: PERRLA, conjunctivae clear NECK: Supple. CHEST: Speaks in full sentences. No respiratory distress. HEART: Regular rate and rhythm. Normal and equal peripheral pulses. EXTREMITIES: 1st and 2nd digits of the left foot have grossly normal strength and sensation, range of motion limited due to swelling. Mild edema and ecchymosis noted to the digit. Normal sensation with sensitivity to light touch and pain. No point tenderness. No open wounds, no skin tenting, no devitalized tissue or atrophy, no trophic changes, no obvious deformity, alignment normal, nearby joints and structures intact. Distal pulses palpable and equal bilaterally, skin warm, dry, pink. Capillary refill less than 3 seconds. SKIN: Warm, dry, no rash. NEURO: Alert and oriented x3. PSYCH: Normal mood and affect Course Course Emergency Course: We do not have an x-ray furniture repair technician today in the clinic, offered patient x-ray and Brown will, he does not want to go to consult today. He reports he will think about coming back on Friday for an x-ray. I told him he will have to sign and again, he is agreeable to this. Patient was treated with postop shoe and kendy tape. Patient is aware of, understands and agrees to treatment plan. Anticipatory guidance given. Patient agrees to follow-up as directed and is aware of reasons to seek care at the emergency department. Portions of this record may have been created with voice recognition software Level of Care: Express Care Visit Vital Signs Vital signs: Reviewed. MDM - Extremity Injury (Lower) MDM Narrative Medical decision making narrative: The patient was evaluated by myself in the express care. History is obtained from patient who is an independent historian and physical exam was performed.? Available medical records were reviewed at this time. ? Exam findings show no acute concerns or changes; patient is non-toxic appearing and is in no distress. Patient is appropriate for outpatient treatment and follow-up. ? I have evaluated and discussed social determinants of health with the patient that could potentially impact subsequent diagnosis and treatment plans. ? Patients injury and pain is consistent with musculoskeletal etiology. No signs of neurological or vascular compromise on exam. Compartments and tissues are soft without signs of compartment syndrome. Pain is felt appropriate for further evaluation on an outpatient basis. Critical Care Time Critical Care Time Critical Care Time: No Discharge Plan Discharge Clinical Impression: Injury of toe Patient Disposition: Home Condition: Stable Instructions: Antibiotic Form Additional Instructions: Avoid activities that cause pain until the pain subsides. Ice to the area 20-30 minutes 4-6 times a day Elevate above heart Elastic wrap and orthopedic splint as directed for comfort for the next 5-7 days Tylenol for pain Follow up with your primary care provider if the condition is not improving within 1 week. If the condition worsens with numbness, tingling, decrease sensation with weakness seek treatment in the emergency room immediately. Patient Language: Swedish Prescriptions: No Action amlodipine 2.5 mg tablet allopurinol 100 mg tablet carvedilol 12.5 mg tablet ropinirole 1 mg tablet prednisone 5 mg tablet metoclopramide HCl 5 mg tablet sodium bicarbonate 650 mg tablet pantoprazole 40 mg tablet,delayed release (DR/EC) PO calcitriol 0.5 mcg capsule gabapentin 300 mg capsule aspirin 81 mg tablet,chewable hydrochlorothiazide 25 mg tablet lorazepam 1 mg tablet rosuvastatin 20 mg tablet mycophenolate sodium 180 mg tablet,delayed release (DR/EC) PO cinacalcet 30 mg tablet PO rivaroxaban [Xarelto] 2.5 mg tablet Envarsus XR 1 mg tablet extended release 24 hr PO Prevymis 480 mg tablet PO Lokelma 10 gram powder in packet PO (DME) Omnipod 5 G6-G7 Pods (Gen 5) Cartridge SUBCUT Follow-up/Referrals: Adam,Aisha Nieto APRN [Primary Care Provider, Unknown] Stand Alone Forms: Work/School Release IP Time of Disposition: 14:12
== END 2025-05-25 14:16 | disposition home or self-care (01) ==
PROVIDERS: Emergency Provider Nurse Practitioner; PCP Nurse Practitioner
DX: S99.921A Unspecified injury of right foot, initial encounter (principal); W22.8XXA Striking against or struck by other objects, initial encounter
CPT/HCPCS: 99212; G0463

== ENCOUNTER 2025-06-03 15:46 | Emergency (ER) | payer MEDICARE, SELFPAY ==
--- OUTSIDE RECORDS SUMMARY | 2025-06-02 13:00 | XMS_ITS | Encounter Summary ---
Author Organization [facility] Address [address] [facility] [address] Care Team Providers Care Manager Long Term Care Name Role Phone Rita Lynne MD Unavailable Martha Worrell MD Unavailable Aisha Medina [employer] RADIO OPERATOR-REALTIME CAPTIONER Primary Care Provide r Reason for Visit * Radiology Services (Urgent) - Pending Review Specialty Diagnoses / Procedures Referred By Contac t Referred To Contact Vascular Lab Diagnoses PAD (peripheral artery disease) H/O peripheral artery bypass Procedures VAS ARTERIAL ANKLE ARM INDEX Dolores Edwards MD [address] [facility] [address] [place] [address] Phone: tel: fax: [facility] [address] [place] [address] Phone: tel: fax: Referral ID Status Reason Start Date Expiration Date V isits Requested Visits Authorized [id number] Pending Review 04/20/2025 04/20/2026 1 1 Encounter Details Date Type Department Care Team (Late st Contact Info) Description 06/02/2025 1:00 PM MANAGER SIGN Hospital Encounter [facility] [address] [place] [address] Dolores Edwards MD [address] [facility] [address] [place] [address] Social History Tobacco Use Types [...] and heating? Not hard at all 03/23/2025 [facility] - Occupational Stress [...] place to sleep or slept in a prison (including now)? No 12/25/2022 Housing Stability Vital Sign Answer Robe e Recorded In the last 12 months, was t here a time when you were not able to pay the mortgage or rent on time? No 03/23/2025 In the past 12 months, how m any times have you moved where you were living? 0 03/23/2025 At any time in the past 12 m ont, were you homeless or living in a prison (including now)? No 03/23/2025 Sex and Gender Information Value Date Recorded Sex Assigned at Not on file Legal Sex Male 12:43 PM CDT Gender Identity Not on file Sexual Orientation Not on file documented as of this encounter Functional Status * Is person deaf or have serious hearing difficulty? Answer Date of Assessment Author No 03/23/2025 10:13 PM SILVANAT Caitlin Santacruz RN * Is person blind or have serious difficulty seeing? Answer Date of Assessment Author No 03/23/2025 10:13 PM SILVNAAT Caitlin Santacruz RN * Does person have serious difficulty walking/climbing stairs? Answer Date of Assessment Author No 03/23/2025 10:13 PM CDT Caitlin Santacruz RN * Does person have difficulty dressing/bathing? Answer Date of Assessment Author No 03/23/2025 10:13 PM SILVANAT Caitlin Santacruz RN * Does person have difficulty doing errands alone? Answer Date of Assessment Author No 03/23/2025 10:13 PM SILVANAT Caitlin Santacruz RN documented as of this encounter Mental Status * Does person have difficulty concentrating/remembering/making decisions? Answer Entry Date Author No 03/23/2025 10:13 PM SILVANAT Caitlin Santcaruz RN documented in this encounter Plan of Treatment Upcoming Encounters Date Type Department Care Team (Late st Contact Info) Description 07/13/2025 9:30 AM MANAGER SIGN Office Visit [facility] - Nephrology [address] [facility] [place] [address] 09/15/2025 3:40 PM CDT Office Visit [facility] - Endocrinology [address] [place] [address] Michael Arceo MD [address] [place] [address] [address] [place] [address] Scheduled Orders Name Type Priority Associated Diagnoses Orde r Schedule VAS ARTERIAL ANKLE ARM INDEX Vascular ALTAF PAD (peripheral artery disease) H/O peripheral artery bypass 1 Occurrences starting 04/20/2025 until 04/20/2026 documented as of this encounter Goals Goal Patient Goal Type Associated Problems Recent Progress Patient-Stated? Author Blood Pressure < 140/90 Blood Pressure 153/81(2024 11:04 AM CDT) Tammy Santiago RN documented as of this encounter Visit Diagnoses Not on filedocumented in this encounter Care Teams Manager Long Term Care Relationship Specialty Start Date End Date Aisha Medina APRN-REALTIME CAPTIONER PCP - General Nurse Practitioner 03/12/19 Rita Lynne MD 03/02/19 Martha Worrell MD Nephrology 03/12/19 documented as of this encounter
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
--- NOTE | 2025-06-03 15:50 | ED.LOWEXIN ---
HPI - Extremity Injury (Lower) General Chief Complaint: Extremity Injury, Lower Stated Complaint: right foot needs x ray Time Seen by Provider: 06/03/25 16:00 Source: patient Mode of arrival: ambulatory Limitations: no limitations History of Present Illness HPI Narrative: Godfrey is a 40-year-old male patient presenting to the clinic today are complaints of right foot pain. He reports he is having pain to the right great toe and 2nd toe and to the mid dorsal foot. He reports he kicked in the ottoman accidently when he was trying to kick a dog toe out of the way on 05/25/25. Was seen when the injury occurred but X-ray was not available on the day he was seen. He would like to have an x-ray completed today. Related Data Home Medications ?Medication ?Instructions ?Recorded ?Confirmed ?Last Taken ?Type allopurinol 100 mg tablet mg 11/21/24 01/26/25 Unknown History amlodipine 2.5 mg tablet mg 11/21/24 01/26/25 Unknown History aspirin 81 mg chewable tablet 11/21/24 01/26/25 Unknown History calcitriol 0.5 mcg capsule mcg 11/21/24 01/26/25 Unknown History carvedilol 12.5 mg tablet mg 11/21/24 01/26/25 Unknown History cinacalcet 30 mg tablet mg PO 11/21/24 01/26/25 Unknown History gabapentin 300 mg capsule mg 11/21/24 01/26/25 Unknown History hydrochlorothiazide 25 mg tablet mg 11/21/24 01/26/25 Unknown History insulin pump cart,auto,BT,G6/7 11/21/24 01/26/25 Unknown History (Omnipod 5 G6-G7 Pods (Gen 5) subcutaneous cartridge) letermovir 480 mg tablet (Prevymis) mg PO 11/21/24 01/26/25 Unknown History lorazepam 1 mg tablet mg 11/21/24 01/26/25 Unknown History metoclopramide HCl 5 mg tablet mg 11/21/24 01/26/25 Unknown History mycophenolate sodium 180 mg mg PO 11/21/24 01/26/25 Unknown History tablet,delayed release pantoprazole 40 mg tablet,delayed mg PO 11/21/24 01/26/25 Unknown History release prednisone 5 mg tablet mg 11/21/24 01/26/25 Unknown History rivaroxaban 2.5 mg tablet (Xarelto) mg 11/21/24 01/26/25 Unknown History ropinirole 1 mg tablet mg 11/21/24 01/26/25 Unknown History rosuvastatin 20 mg tablet mg 11/21/24 01/26/25 Unknown History sodium bicarbonate 650 mg tablet mg 11/21/24 01/26/25 Unknown History sodium zirconium cyclosilicate 10 g PO 11/21/24 01/26/25 Unknown History gram oral powder packet (Lokelma) tacrolimus 1 mg tablet,extended mg PO 11/21/24 01/26/25 Unknown History release 24 hr (Envarsus XR) tacrolimus 0.75 mg tablet,extended mg PO 06/03/25 Unknown History release 24 hr (Envarsus XR) Allergies Allergy/AdvReac Type Severity Reaction Status Date / Time NSAIDS (Non-Steroidal Allergy Intermediate Other Verified 06/03/25 15:56 Anti-Inflamma Review of Systems Review of Systems: Pertinent positives per HPI. Patient denies any fever, chills, rash, headache, visual changes, dizziness, cough, shortness of breath, chest pain, palpitations, nausea, vomiting, diarrhea, constipation, abdominal pain, or any urinary issues. PMFSH Social History Social History Smoking status: Unknown if ever smoked Comments At the time of my signature, I reviewed and agree with the nursing past medical, surgical, social, and family history. There is no relevant family history pertinent to the patient complaint. Exam Narrative: General: Well-developed, well nourished, in no apparent distress Head: Normocephalic, atraumatic. Cardio: Regular rate and rhythm, s1 and s2 normal, no murmur appreciated. Resp: Clear to auscultation bilaterally, no rhonchi, rales, wheezing or rubs. Musculoskeletal: No deformity, bruising and mild swelling to the great toe and the 2nd toe the right foot with mild tenderness to palpation over the midfoot, has pain with flexion extension of the great toe and 2nd toe, otherwise grossly normal range of motion, muscle strength strong and equal, peripheral pulse strong, no edema, no cyanosis, normal gait and station Course Course Level of Care: Express Care Visit Vital Signs Vital signs: Vital Signs Temperature 37.1 C 06/03/25 15:56 Pulse Rate 73 06/03/25 15:56 Respiratory Rate 18 06/03/25 15:56 Blood Pressure 133/81 06/03/25 15:56 Pulse Oximetry 97 06/03/25 15:56 Oxygen Delivery Room Air 06/03/25 15:56 Temperature 37.1 C 06/03/25 15:56 Pulse Rate 73 06/03/25 15:56 Respiratory Rate 18 06/03/25 15:56 Blood Pressure 133/81 06/03/25 15:56 Pulse Oximetry 97 06/03/25 15:56 Oxygen Delivery Room Air 06/03/25 15:56 MDM MDM Narrative Medical decision making narrative: At the time of visit patient is resting comfortably on the exam table. Patient appears to be nontoxic. presenting to the clinic today are complaints of right foot pain. He reports he is having pain to the right great toe and 2nd toe and to the mid dorsal foot. He reports he kicked in the ottoman accidently when he was trying to kick a dog toe out of the way on 05/25/25. Was seen when the injury occurred but X-ray was not available on the day he was seen. He would like to have an x-ray completed today. On the exam patient has bruising and mild swelling to the great toe and the 2nd toe the right foot with mild tenderness to palpation over the midfoot, has pain with flexion extension of the great toe and 2nd toe. X-ray of the right foot was ordered. Diagnostics: X-ray of the right foot was negative for any sign of fracture or malalignment. Plan: I suspect patient has bruising/swelling to the right great toe and 2nd toe-I suspect contusion/sprain. X-ray was negative. Continue to wear postop shoe. Papito wrap was given in the clinic today to help with swelling. Supportive measures were discussed with the patient and they voiced understanding discharge instructions and agrees to treatment plan. Return precautions reviewed Differential Diagnosis Differential Diagnosis: Differential diagnostic considerations for lower extremity injury include ankle sprain/strain, acute internal derangement of knee, fracture of femur, fracture of hip, puncture wound of foot, fracture of toe, fracture of ankle, tendon rupture (achilles/patellar/quadriceps). Imaging Data Radiologist's impression: ITS Impressions Foot X-Ray 12/05/25 16:04 Impression: No acute fracture or malalignment. Discharge Plan Discharge Clinical Impression: Sprain of toe Qualifiers: Encounter type: initial encounter Qualified Code(s): S93.509A - Unspecified sprain of unspecified toe(s), initial encounter Acute foot pain Qualifiers: Laterality: right Qualified Code(s): M79.671 - Pain in right foot Patient Disposition: Home Condition: Stable Instructions: Antibiotic Form, Contusion in Adults (ED), Foot Sprain (ED) Additional Instructions: X-ray of the right foot is negative for any sign of fracture or malalignment. Rest, ice, elevate, and wear papito wrap as directed Tylenol/motrin for pain as discussed. Gradually bear weight No running or sports until healed. Follow up with your PCP if symptoms persist more than 1 week. Patient Language: Kuwaiti Prescriptions: No Action amlodipine 2.5 mg tablet allopurinol 100 mg tablet carvedilol 12.5 mg tablet ropinirole 1 mg tablet prednisone 5 mg tablet metoclopramide HCl 5 mg tablet sodium bicarbonate 650 mg tablet pantoprazole 40 mg tablet,delayed release (DR/EC) PO calcitriol 0.5 mcg capsule gabapentin 300 mg capsule aspirin 81 mg tablet,chewable hydrochlorothiazide 25 mg tablet lorazepam 1 mg tablet rosuvastatin 20 mg tablet mycophenolate sodium 180 mg tablet,delayed release (DR/EC) PO cinacalcet 30 mg tablet PO rivaroxaban [Xarelto] 2.5 mg tablet Envarsus XR 1 mg tablet extended release 24 hr PO Prevymis 480 mg tablet PO Lokelma 10 gram powder in packet PO (DME) Omnipod 5 G6-G7 Pods (Gen 5) Cartridge SUBCUT Envarsus XR 0.75 mg tablet extended release 24 hr PO Follow-up/Referrals: Adam,Aisha Nieto, GRAIN OILSEED OR PASTURE FARM WORKER [Primary Care Provider, Unknown] Time of Disposition: 16:10 Quality NIHSS Nursing Documentation ED NIHSS nursing documentation: reviewed/agree
[2025-06-03 15:56] VITALS: BP 133/81; PULSE 73; RESP 18; TEMP 37.1; O2SAT 97
--- OUTSIDE RECORDS SUMMARY | 2025-06-03 15:57 | XMS_ITS | Encounter Summary ---
Author Organization [facility] Address [address] [place] [address] Phone Care Team Providers Care Drafter Automotive Design Name Role Phone Ariel Lua Nikhil DPM Unavailable [phone] Aisha Medina APRN, PASTRY CHEF Primary Care Prov ider Juanjo Mclaughlin MD Unavailable Rita Lynne MD Unavailable Meron Gurrola RN Unavailable Unavailable Meron Gurrola RN Unavailable Unavailable Reason for Visit * Reason Comments Medication Refill Encounter Details Date Type Department Care Team (Late st Contact Info) Description 07/11/2020 Refill [facility] Medical Group - Family Medicine [facility] #2 [place] [address] Aisha Medina APRN, PASTRY CHEF #[address] [address] Medication Refill Social History Tobacco [...] with stage 4 chronic kidney disease (HCC) [facility] [place] [facility], [facility] 8 months [facility] 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) [facility]ata APN, PASTRY CHEF 1 year ago Chest congestion [facility] 1 year ago 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) [facility] Aisha Plata APN, PASTRY CHEF 1 year ago Penile lesion [facility] [place] [facility] Upcoming Appointments A AND P TECHNICIAN - Recent and Past Visits Recent Visits Date Type Provider Dept 05/12/20 Office Visit Aisha Medina APN, CNP [facility] 11/01/19 Telemedicine Aisha Medina APN, CNP [facility] 07/01/19 Office Visit Cherelle Vargas PAC [facility] 06/18/19 Office Visit Aisha Medina APN, KASSI [facility] Showing recent visits within past 460 days with a meds authorizing provider and meeting all other requirements Future Appointments No visits were found meeting these conditions. Showing future appointments within next 90 days with a meds authorizing provider and meeting all other requirements Passed - Last BP in normal range BP Readings from Last 1 Encounters: 05/12/20 138/88 ASTRUCTURE ARCHITECT documented in this encounter Plan of Treatment Upcoming Encounters Date Type Department Care Team (Late st Contact Info) Description 06/16/2025 7:45 AM INFRASTRUCTURE ARCHITECT Office Visit [facility] Medical [facility] - Family Medicine [facility] [address] [place] [address] Aisha Medina APRN, PASTRY CHEF #[address] [phone] 07/06/2025 2:30 PM INFRASTRUCTURE ARCHITECT Office Visit [facility] Endocrinology [facility] [address]2 [place] [phone] Rita Lynne MD #[address] [phone] documented as of this encounter Visit Diagnoses Not on filedocumented in this encounter Additional Health Concerns Assessment Noted Time PHQ-9 Depression Total Score: 0 07/01/19 11:36 AM INFRASTRUCTURE ARCHITECT documented as of this encounter Care Teams Drafter Automotive Design Relationship Specialty Start Date End Date Aisha Medina APRN, PASTRY CHEF #[address] [phone] PCP - General Advanced Practice Nurse 07/17/18 Ariel Lua DPM Consulting Physician Podiatry 12/02/16 Juanjo Mclaughlin MD [address] [place] [address] Consulting Physician Oncology 12/01/19 Rita Lynne MD #[address] [address] Consulting Physician Endocrinology 10/17/22 Meron Gurrola RN [place] Nurse Food Service Ambassador 01/09/24 01/15/24 Meron Gurrola RN [place] Nurse Food Service Ambassador 11/26/24 12/08/24 documented as of this encounter
--- OUTSIDE RECORDS SUMMARY | 2025-06-03 15:57 | XMS_ITS | Encounter Summary ---
Author Organization [facility] Address [address] [place] [address] Phone Care Team Providers Care Research Quality Assurance Analyst Name Role Phone Ariel Lua Nikhil DPM Unavailable [phone] Aisha Medina APRN, CONTACT CENTER MANAGER Primary Care Prov ider Juanjo Mclaughlin MD Unavailable Rita Lynne MD Unavailable Meron Gurrola RN Unavailable Unavailable Meron Gurrola RN Unavailable Unavailable Reason for Visit * Reason Comments Medication Refill Encounter Details Date Type Department Care Team (Late st Contact Info) Description 10/19/2023 Refill [facility] Medical Group - Family Medicine [facility] [address]2 [place] [address] Aisha Medina APRN, CONTACT CENTER MANAGER #[address] [address] Medication Refill Social History [...] Date Type Provider Dept 12/30/23 Appointment Aisha Mdeina APRN, CNP [facility] Showing future appointments [...] [facility] Showing recent visits within past 270 [...] st Contact Info) Description 06/16/2025 7:45 AM MODELING AND SIMULATION ANALYST Office Visit [facility] Medical [facility] - Family Medicine - [place] [address] [place] [address] Aisha Medina APRN, CNP #2 [facility] [address] [place] [address] 07/06/2025 2:30 PM MODELING AND SIMULATION ANALYST Office Visit [facility] - Endocrinology - [place] [address]2 [place] [address] Rita Lynne MD #2 [facility] [address] [place] [address] documented as of this encounter Visit Diagnoses [...] Total Score: 0 07/07/19 24 2:00 PM MODELING AND SIMULATION ANALYST documented as of this encounter Care Teams Research Quality Assurance Analyst Relationship Specialty Start Date End Date Aisha Medina APRN, CONTACT CENTER MANAGER #2 [facility] [address] [place] [address] PCP - General Advanced Practice Nurse 07/17/18 Ariel Lua DPM Consulting Physician Podiatry 12/02/16 Juanjo Mclaughlin MD [address] [place] [address] Consulting Physician Oncology 12/01/19 Rita Lynne MD #2 [facility] [address] [place] [address] Consulting Physician Endocrinology 10/17/22 Meron Gurrola RN [place] Nurse Radial Drill Press Set Up Operator 01/09/24 01/15/24 Meron Gurrola RN [place] Nurse Radial Drill Press Set Up Operator 11/26/24 12/08/24 documented as of this encounter
--- OUTSIDE RECORDS SUMMARY | 2025-06-03 15:57 | XMS_ITS | Encounter Summary ---
Author Organization [facility] Address [address] [place] [address] Phone Care Team Providers Care Outside Plant Engineer Name Role Phone Unavailable Primary Care Provider Unavailabl e Reason for Visit * Reason Comments Med Refill Encounter Details Date Type Department Care Team ([facility] st Contact Info) Description 07/25/2022 Refill [facility] [address] [place] [address] Chip Rivera MD [address] [place] [address] Social History Tobacco Use Types [...]
--- OUTSIDE RECORDS SUMMARY | 2025-06-03 15:57 | XMS_ITS | Encounter Summary ---
Author Organization [facility] Address [address] [place] [address] Care Team Providers Care Cleaning Crew Member Name Role Phone Rita Lynne MD Unavailable Martha Worrell MD Unavailable [phone] Aisha Medina APRN-PRINCIPAL TRAINER Primary Care Provide r Encounter Details Date Type Department Care Team (Late st Contact Info) Description 03/22/2025 Telephone [facility] - Vascular Surgery [address] [place] [address], [place] [address] Dolores Edwards MD [address] [place] [address] [place] [address] Social History Tobacco Use Types [...] and heating? Not hard at all 03/23/2025 [facility] [place] of Occupat ional Health - Occupational Stress [...] place to sleep or slept in a mcfp (including now)? No 12/25/2022 Housing Stability Vital Sign Answer Robe e Recorded In the last 12 months, was t here a time when you were not able to pay the mortgage or rent on time? No 03/23/2025 In the past 12 months, how m any times have you moved where you were living? 0 03/23/2025 At any time in the past 12 m [facility], were you homeless or living in a mcfp (including now)? No 03/23/2025 Sex and Gender [...] 03/23/2025. PA submitted as expedited urgent with [facility] on 03/22/2025 [[id number]] waiting on approval.-KJ documented in this encounter Plan of Treatment Upcoming Encounters Date Type Department Care Team (Late st Contact Info) Description 07/13/2025 9:30 AM EXECUTIVE SOUS CHEF Office Visit [facility] - Nephrology [address] [place] [address], [place] [address] 09/15/2025 3:40 PM CDT Office Visit [facility] - Endocrinology [address] [place] [address] Michael Arceo MD [address] [place] [address] [place] [address] documented as of this encounter Goals Goal Patient Goal Type Associated Problems Recent Progress Patient-Stated? Author Blood Pressure < 140/90 Blood Pressure 153/81(2024 11:04 AM CDT) Tammy Santiago, RN documented as of this encounter Visit Diagnoses Not on filedocumented in this encounter Care Teams Cleaning Crew Member Relationship Specialty Start Date End Date Aisha Medina APRN-PRINCIPAL TRAINER PCP - General Nurse Practitioner 03/12/19 Rita Lynne MD 03/02/19 Martha Worrell MD Nephrology 03/12/19 documented as of this encounter
--- OUTSIDE RECORDS SUMMARY | 2025-06-03 15:57 | XMS_ITS ---
Author Organization [facility] Address [address] [place] [address] Phone Care Team Providers Care Plunger Machine Operator Name Role Phone ChanellAriel kam Nikhil DPM Unavailable [phone] Aisha Medina APRN, LEATHER FINISHER Primary Care Prov ider Juanjo Mclaughlin MD [...]
--- OUTSIDE RECORDS SUMMARY | 2025-06-03 15:57 | XMS_ITS | Encounter Summary ---
Author Organization [facility] Address [address] [place] [address] Phone Care Team Providers Care Prospecting Observer Name Role Phone Ariel Lua Nikhil DPM Unavailable [phone] Aisha Medina APRN, CLINICAL EDUCATION SPECIALIST Primary Care Prov ider Juanjo Mclaughlin MD Unavailable Rita Lynne MD Unavailable Meron Gurrola RN Unavailable Unavailable Meron Gurrola RN Unavailable Unavailable Reason for Visit * Reason Onset Date Comments Medication Refill 07/02/2021 Encounter Details Date Type Department Care Team (Late st Contact Info) Description 07/02/2021 Refill [facility] Medical Group - Family Medicine [facility] [address]2 [place] [phone] Aisha Medina APRN, CLINICAL EDUCATION SPECIALIST #[address] [phone] Medication Refill Social History Tobacco Use Types [...] COVID-19? No / Unsure 06/28/2021 2:18 PM DRENCHER documented as of this encounter Miscellaneous Notes * Telephone Encounter - Jade Vega RN - 07/04/2021 11:33 AM CST Per patient, he is not taking this anymore. CHER * Telephone Encounter - Aisha Medina APRN, CNP - 07/03/2021 12:39 PM DRENCHER Please reach out to the patient and clarify if he is taking this. He is a pending transplant patient and sees multiple specialists. CHER * Telephone Encounter - Jade Vega RN [...] 03/01/21 Office Visit Aisha Medina APRN, CNP [facility] Showing recent visits within past 365 days and meeting all other requirements Future Appointments No visits were found meeting these conditions. Showing future appointments within next 90 days and meeting all other requirements CHER * Telephone Encounter - Bryanna Anna - 07/02/2021 10:08 AM CST Received a faxed Rx request from pharmacy. Reordered refill medication(s) requested and pended for nurse and physician/SUMA review. Refill encounter routed to nurse Bridger's pool for processing. CHER documented in this encounter Plan of Treatment Upcoming Encounters Date Type Department Care Team (Late st Contact Info) Description 06/16/2025 7:45 AM DRENCHER Office Visit [facility] Medical [facility] - Family Medicine - [place] #2 [facility] [place] [address] Aisha Medina APRN, CLINICAL EDUCATION SPECIALIST #2 [facility] [address] [place] [address] 07/06/2025 2:30 PM DRENCHER Office Visit [facility] - Endocrinology - [place] #2 [facility] [place] [address] Rita Lynne MD #[address] [place] [address] documented as of this encounter Visit Diagnoses Not on filedocumented in this encounter Additional Health Concerns Assessment Noted Time PHQ-9 Depression Total Score: 0 03/01/20 21 10:00 AM CDT documented as of this encounter Care Teams Prospecting Observer Relationship Specialty Start Date End Date Aisha Medina APRN, CLINICAL EDUCATION SPECIALIST #2 [facility] [address] [place] [address] PCP - General Advanced Practice Nurse 07/17/18 Ariel Lua DPM Consulting Physician Podiatry 12/02/16 Juanjo Mclaughlin MD [address] [address] Consulting Physician Oncology 12/01/19 Rita Lynne MD #[address] [address] Consulting Physician Endocrinology 10/17/22 Meron Gurrola, RN [place] Nurse Associate Professor Of Automation 01/09/24 01/15/24 Meron Gurrola, RN [place] Nurse Associate Professor Of Automation 11/26/24 12/08/24 documented as of this encounter
--- OUTSIDE RECORDS SUMMARY | 2025-06-03 15:57 | XMS_ITS | Encounter Summary ---
Author Organization [facility] Address [address] [place] [address] Phone Care Team Providers Care Final Canoe Inspector Name Role Phone Ariel Lua Nikhil DPM Unavailable [phone] Aisha Medina APRN, MUSIC THERAPIST Primary Care Prov ider Juanjo Mclaughlin MD Unavailable Rita Lynne MD Unavailable Meron Gurrola RN Unavailable Unavailable Meron Gurrola RN Unavailable Unavailable Reason for Visit * Reason Comments Medication Refill Encounter Details Date Type Department Care Team (Late st Contact Info) Description 11/22/2023 [facility]ill [facility] #2 [place] [address] Rita Lynne MD #[address] [address] Medication Refill Social History Tobacco [...] Pending Prescriptions Disp Refills Comfort EZ Pen [place] 31G X 6 MM Misc [Pharmacy Med [...] st Contact Info) Description 06/16/2025 7:45 AM PUBLIC HEALTH TECHNICIAN Office Visit [facility] Medical [facility] - Family Medicine - [place] #2 [place] [address] Aisha Medina APRN, KASSI #2 [facility] [address] [place] [address] 07/06/2025 2:30 PM PUBLIC HEALTH TECHNICIAN Office Visit [facility] - Endocrinology - [place] #[address] [place] [address] Rita Lynne MD #[address] [address] documented as of this encounter Visit Diagnoses Not on filedocumented in this encounter Additional Health Concerns Assessment Noted Time PHQ-9 Depression Total Score: 0 07/07/19 24 2:00 PM PUBLIC HEALTH TECHNICIAN documented as of this encounter Care Teams Final Canoe Inspector Relationship Specialty Start Date End Date Aisha Medina APRN, KASSI #2 [facility] [address] [place] [address] PCP - General Advanced Practice Nurse 07/17/18 Ariel Lua DPM Consulting Physician Podiatry 12/02/16 Juanjo Mclaughlin MD [address] [place] [address] Consulting Physician Oncology 12/01/19 Rita Lynne MD #2 [facility] [address] [place] [address] Consulting Physician Endocrinology 10/17/22 Meron Gurrola, RN [place] Nurse Scheduling Agent 01/09/24 01/15/24 Meron Gurrola RN [place] Nurse Scheduling Agent 11/26/24 12/08/24 documented as of this encounter
--- OUTSIDE RECORDS SUMMARY | 2025-06-03 15:57 | XMS_ITS | Encounter Summary ---
Author Organization [facility] Address [address] [place] [address] Phone Care Team Providers Care Director Of Archives Name Role Phone Ariel Lua Nikhil DPM Unavailable [phone] Aisha Medina APRN, SENIOR SAS PROGRAMMER Primary Care Prov ider Juanjo Mclaughlin MD Unavailable Rita Lynne MD Unavailable Meron Gurrola RN Unavailable Unavailable Meron Gurrola RN Unavailable Unavailable Reason for Visit * Reason Comments Medication Refill Encounter Details Date Type Department Care Team (Late st Contact Info) Description 07/16/2023 Refill [facility] Medical Group - Family Medicine [facility] #2 [place] [address] Aisha Medina APRN, SENIOR SAS PROGRAMMER #[address] [address] Medication Refill Social History Tobacco [...] 07/01/23 Office Visit Aisha Medina APRN, CNP [facility] Showing recent visits within past 365 days and meeting all other requirements Future Appointments No visits were found meeting these conditions. Showing future appointments within next 90 days and meeting all other requirements ASSOCIATE documented in this encounter Plan of Treatment Upcoming Encounters Date Type Department Care Team (Late st Contact Info) Description 06/16/2025 7:45 AM LOAN ASSOCIATE Office Visit [facility] Medical Group - Family Medicine - [place] [address] [place] [address] Aisha Medina APRN, KASSI #2 [facility] [address] [place] [address] 07/06/2025 2:30 PM LOAN ASSOCIATE Office Visit [facility] - Endocrinology - [place] #2 [place] [address] Rita Lynne MD #2 [facility] [address] [place] [address] documented as of this encounter Visit Diagnoses Diagnosis 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, not stated as uncontrolled documented in this encounter Additional Health Concerns Assessment Noted Time PHQ-9 Depression Total Score: 0 07/07/19 24 2:00 PM LOAN ASSOCIATE documented as of this encounter Care Teams Director Of Archives Relationship Specialty Start Date End Date Aisha Medina APRN, KASSI #2 [facility] [address] [place] [address] PCP - General Advanced Practice Nurse 07/17/18 Ariel Lua DPM Consulting Physician Podiatry 12/02/16 Juanjo Mclaughlin MD [address] [place] [address] Consulting Physician Oncology 12/01/19 Rita Lynne MD #2 [facility] [address] [place] [address] Consulting Physician Endocrinology 10/17/22 Meron Gurrola, RN [place] Nurse Inside Sales Engineer 01/09/24 01/15/24 Meron Gurrola RN [place] Nurse Inside Sales Engineer 11/26/24 12/08/24 documented as of this encounter
--- OUTSIDE RECORDS SUMMARY | 2025-06-03 15:57 | XMS_ITS | Encounter Summary ---
Author Organization [facility] Address [address] [place] [address] Phone Care Team Providers Care Stapling Machine Operator Name Role Phone Ariel Lua Nikhil DPM Unavailable [phone] Aisha Medina APRN, BAND SCROLL SAW OPERATOR Primary Care Prov ider Juanjo Mclaughlin MD Unavailable Rita Lynne MD Unavailable Meron Gurrola RN Unavailable Unavailable Meron Gurrola RN Unavailable Unavailable Reason for Visit * Reason Comments Medication Refill Encounter Details Date Type Department Care Team (Late st Contact Info) Description 11/17/2023 Refill [facility] Medical Group - Family Medicine [facility] #2 [place] [address] Aisha Medina APRN, BAND SCROLL SAW OPERATOR #[address] [address] Medication Refill Social History [...] st Contact Info) Description 06/16/2025 7:45 AM ELECTRONICS RECYCLER Office Visit [facility] Medical [facility] - Family Medicine - [place] #[address] [place] [phone] Aisha Medina APRN, BAND SCROLL SAW OPERATOR #2 [facility] [address] [place] [address] 07/06/2025 2:30 PM ELECTRONICS RECYCLER Office Visit [facility] - Endocrinology - [place] #2 [place] [address] Rita Lynne MD #2 [facility] [address] [place] [address] documented as of this encounter Visit Diagnoses Not on filedocumented in this encounter Additional Health Concerns Assessment Noted Time PHQ-9 Depression Total Score: 0 07/07/19 24 2:00 PM ELECTRONICS RECYCLER documented as of this encounter Care Teams Stapling Machine Operator Relationship Specialty Start Date End Date Aisha Medina APRN, BAND SCROLL SAW OPERATOR #2 [facility] [address] [place] [address] PCP - General Advanced Practice Nurse 07/17/18 Ariel Lua DPM Consulting Physician Podiatry 12/02/16 Juanjo Mclaughlin MD [address] [place] [address] Consulting Physician Oncology 12/01/19 Rita Lynne MD #2 [facility] [address] [place] [address] Consulting Physician Endocrinology 10/17/22 Meron Gurrola, ZEINAB [place] Nurse Parts Identifier 01/09/24 01/15/24 Meron Gurrola RN [place] Nurse Parts Identifier 11/26/24 12/08/24 documented as of this encounter
--- OUTSIDE RECORDS SUMMARY | 2025-06-03 15:57 | XMS_ITS | Encounter Summary ---
Author Organization [facility] Address [address] [place] [address] Care Team Providers Care Shadowgraph Scale Operator Name Role Phone Rita Lynne MD Unavailable Martha Worrell MD Unavailable Aisha Medina REGULATORY AFFAIRS PORTFOLIO LEADER-BOOK REVIEWER Primary Care Provide r Encounter Details Date Type Department Care Team (Late st Contact Info) Description 05/05/2025 Results Follow-Up [facility] TRANSPLANT [address] [place] [phone] Uma Bennett RN Social History Tobacco Use [...] and heating? Not hard at all 03/23/2025 [facility] [place] of Occupat ional Health - Occupational Stress [...] place to sleep or slept in a correction (including now)? No 12/25/2022 Housing Stability Vital Sign Answer Robe e Recorded In the last 12 months, was t here a time when you were not able to pay the mortgage or rent on time? No 03/23/2025 In the past 12 months, how m any times have you moved where you were living? 0 03/23/2025 At any time in the past 12 m [facility], were you homeless or living in a correction (including now)? No 03/23/2025 Sex and Gender [...] 03/23/2025 10:13 PM CDT Caitlin Santacruz RN documented as of this encounter Mental Status * Does person have difficulty concentrating/remembering/making decisions? Answer Entry Date Author No 03/23/2025 10:13 PM CDT Caitlin Santacruz RN documented in this encounter Plan of Treatment Upcoming Encounters Date Type Department Care Team (Late st Contact Info) Description 07/13/2025 9:30 AM COORDINATOR HOTELS Office Visit [facility] - Nephrology [address] [place] [address], [place] [address] 09/15/2025 3:40 PM CDT Office Visit [facility] - Endocrinology [address] [place], [place] [address], [place] [address] Michael Arceo MD [address] [place] [address] [place] [address] documented as of this encounter Goals Goal Patient Goal Type Associated Problems Recent Progress Patient-Stated? Author Blood Pressure < 140/90 Blood Pressure 153/81(2024 11:04 AM CDT) Tammy Santiago RN documented as of this encounter Visit Diagnoses Not on filedocumented in this encounter Care Teams Shadowgraph Scale Operator Relationship Specialty Start Date End Date Aisha Medina APRN-BOOK REVIEWER PCP - General Nurse Practitioner 03/12/19 Rita Lynne MD 03/02/19 Martha Worrell MD Nephrology 03/12/19 documented as of this encounter
--- OUTSIDE RECORDS SUMMARY | 2025-06-03 15:57 | XMS_ITS | Encounter Summary ---
Author Organization [facility] Address [address] [place] [address] Care Team Providers Care Environmental Services Attendant Name Role Phone Rita Lynne MD Unavailable Martha Worrell MD Unavailable Aisha Medina APRN-SOCIAL SERVICES COUNSELOR Primary Care Provide r Encounter Details Date Type Department Care Team (Late st Contact Info) Description 03/16/2025 Telephone [facility] - Vascular Surgery [address] [place] [address], [place] [address] Dolores Edwards MD [address] [place] [address] [place] [address] Social History Tobacco Use Types [...] and heating? Not hard at all 03/17/2025 [facility] Occupat ional Health - Occupational Stress [...] place to sleep or slept in a intermediate (including now)? No 12/25/2022 Housing Stability Vital [...] time in the past 12 m [facility], were you homeless or living in a intermediate (including now)? No 03/17/2025 Sex and Gender [...] 08/18/2024 3:00 PM Abena Sharp RN documented as of this encounter Mental Status * Does person have difficulty concentrating/remembering/making decisions? Answer Entry Date Author No 08/18/2024 3:00 PM Abena Sharp RN documented in this encounter Miscellaneous Notes * Telephone Encounter - Alieen Arias - 03/16/2025 1:34 PM CDT Patient called to get time he needs to arrive to the hospital for pre-admit for surgery scheduled for Friday. Spoke with Negin at ([phone]) who advised that orders are needed in [...] st Contact Info) Description 07/13/2025 9:30 AM CORD CUTTER Office Visit [facility] - Nephrology [address] [place] [address], [facility] [place] [address] 09/15/2025 3:40 PM CDT Office Visit [facility] - Endocrinology [facility] [place] [address] Michael Arceo MD [address] [place] [address] [place] [address] documented as of this encounter Goals Goal Patient Goal Type Associated Problems Recent Progress Patient-Stated? Author Blood Pressure < 140/90 Blood Pressure 153/81(2024 11:04 AM CDT) Tammy Santiago RN documented as of this encounter Visit Diagnoses Not on filedocumented in this encounter Care Teams Environmental Services Attendant Relationship Specialty Start Date End Date Aisha Medina APRN-SOCIAL SERVICES COUNSELOR PCP - General Nurse Practitioner 03/12/19 Rita Lynne MD 03/02/19 Martha Worrell MD Nephrology 03/12/19 documented as of this encounter
--- OUTSIDE RECORDS SUMMARY | 2025-06-03 15:57 | XMS_ITS | Encounter Summary ---
Author Organization [facility] Address [address] [place] [address] Phone Care Team Providers Care Leasing Consultant Name Role Phone Ariel Lua Nikhil DPM Unavailable [phone] Aisha Medina APRN, HELPDESK TECHNICIAN Primary Care Prov ider Juanjo Mclaughlin MD Unavailable Rita Lynne MD Unavailable Meron Gurrola RN Unavailable Unavailable Meron Gurrola RN Unavailable Unavailable Reason for Visit * Reason Comments Medication Refill Encounter Details Date Type Department Care Team (Late st Contact Info) Description 08/13/2023 Refill [facility] - Family Medicine [facility] [address]2 [place] [address] Aisha Medina APRN, HELPDESK TECHNICIAN #[address] [address] Medication Refill Social History Tobacco [...] Mindi Hardwick RN - 08/13/2023 1:22 PM HANDMADE TILE ARTIST Medication failed the protocol, provider to review [...] - Absence of nitrates on med list MADE TILE ARTIST documented in this encounter Plan of Treatment Upcoming Encounters Date Type Department Care Team (Late st Contact Info) Description 06/16/2025 7:45 AM HANDMADE TILE ARTIST Office Visit [facility] - Family Medicine [facility] [address] [place] [address] Aisha Medina APRN, HELPDESK TECHNICIAN #2 [facility] [address] [place] [address] 07/06/2025 2:30 PM HANDMADE TILE ARTIST Office Visit [facility] - Endocrinology - [place] [address] [place] [address] Rita Lynne MD #2 [facility] [address] [place] [address] documented as of this encounter Visit Diagnoses Not on filedocumented in this encounter Additional Health Concerns Assessment Noted Time PHQ-9 Depression Total Score: 0 07/07/19 24 2:00 PM HANDMADE TILE ARTIST documented as of this encounter Care Teams Leasing Consultant Relationship Specialty Start Date End Date Aisha Medina APRN, HELPDESK TECHNICIAN #2 [facility] [address] [place] [address] PCP - General Advanced Practice Nurse 07/17/18 Ariel Lua DPM Consulting Physician Podiatry 12/02/16 Juanjo Mclaughlin MD [address] [place] [address] Consulting Physician Oncology 12/01/19 Rita Lynne MD #2 [facility] [address] [place] [address] Consulting Physician Endocrinology 10/17/22 Meron Gurrola, ZEINAB [place] Nurse Deputy Sheriff Custody 01/09/24 01/15/24 Meron Gurrola, ZEINAB [place] Nurse Deputy Sheriff Custody 11/26/24 12/08/24 documented as of this encounter
--- OUTSIDE RECORDS SUMMARY | 2025-06-03 15:58 | XMS_ITS | Encounter Summary ---
Author Organization [facility] Address [address] [place] [address] Phone Care Team Providers Care Sanitation Director Name Role Phone ChanellAriel DPM Unavailable [phone] Aisha Medina APRN, TRANSFER KNITTER Primary Care Prov ider Juanjo Mclaughlin MD Unavailable Rita Lynne MD Unavailable Meron Gurrola RN Unavailable Unavailable Reason for Visit * Reason Comments Medication Refill Encounter Details Date Type Department Care Team (Late st Contact Info) Description 09/10/2024 [facility]ill [facility] #2 [place] [address] Sukumar Mulligan MD #[address] [address] Medication Refill Social History Tobacco Use Types [...] 09/10/2024 11:48 AM CDT Aisha Medina APRN, TRANSFER KNITTER to [place] Nurse Pool Regarding result: LORazepam (ATIVAN) 1 MG Tablet [Pharmacy Med Name: LORAZEPAM 1MG TABLETS] 09/10/24 10:48 AM Needs OV * Telephone Encounter - Jade Vega RN - 09/10/2024 9:58 AM CDT Images from the original note were not included. LORazepam Dispensed Days Supply Quantity Provider Pharmacy LORAZEPAM 1MG TABLETS 08/02/2024 30 60 Each Sukumar Mulligan MD [facility].. Medication failed the protocol, [...] st Contact Info) Description 06/16/2025 7:45 AM CYBER SYSTEMS ADMINISTRATOR Office Visit [facility] Family Medicine [facility] [address]2 [place] [address] Aisha Medina APRN, TRANSFER KNITTER #[address] [phone] 07/06/2025 2:30 PM CYBER SYSTEMS ADMINISTRATOR Office Visit [facility] Endocrinology [facility] #2 [place] [address] Rita Lynne MD #[address] [phone] documented as of this encounter Visit Diagnoses Diagnosis Anxiety Anxiety state, unspecified documented in this encounter Additional Health Concerns Assessment Noted Time PHQ-9 Depression Total Score: 0 07/07/19 24 2:00 PM CYBER SYSTEMS ADMINISTRATOR documented as of this encounter Care Teams Sanitation Director Relationship Specialty Start Date End Date Aisha Medina APRN, TRANSFER KNITTER #[address] [address] PCP - General Advanced Practice Nurse 07/17/18 Ariel Lua DPM Consulting Physician Podiatry 12/02/16 Juanjo Mclaughlin MD [address] [place] [id number] Consulting Physician Oncology 12/01/19 Rita Lynne MD #[address] [phone] Consulting Physician Endocrinology 10/17/22 Meron Gurrola, RN [place] Nurse Financial Institution President 11/26/24 12/08/24 documented as of this encounter
--- OUTSIDE RECORDS SUMMARY | 2025-06-03 15:58 | XMS_ITS ---
Author Organization [facility] Address [address] [place] [address] Care Team Providers Care Account Support Specialist Name Role Phone Rita Lynne MD Unavailable Martha Worrell MD Unavailable [phone] Aisha Medina APRN-LABORER HIDE HOUSE Primary Care Provide r Active Problems Problem [...] Rivera Transplant Date: 06/13/2025 Donor: [facility] ID: [id number] Match ID: [id number] Criteria: DBD KDPI: 25 CMV D+/R- EBV [...] Non-Reactive for HBV DNA Test performed with Orlumetio Elite Assay Kit. Assessment & Plan (03/27/2025 [...] Godfrey Hollins 1985 Listing Date: 05/18/2021 Referring Security Threat Analyst: Dr. Chip Rivera Kidney Disease: DM1 Dialysis Info: Type: HD 01/11/2022, changed to PD 05/01/2022 Start: 01/11/2022 Blood Type: O POS Body mass index is 28.06 kg/m . Endocrinology: Dr Lynne @ [facility] in [place], [place] ALERTS : May need vasc surg assistance due to extensive calcifications. Immunosuppression Induction Method/Plan: Antithymocyte globulin (rabbit) (Thymoglobulin) 3mg/kg CKD d/t DMI Past Medical History: Diagnosis Date CAD (coronary artery disease) CKD (chronic kidney disease) stage 4, GFR 15-29 ml/min CKD (chronic kidney disease), stage IV Coronary artery disease 2020 stents x2 ARELI to mid LAD and ARELI it the RCA CHANGE OF ADDRESS CLERK Diabetes mellitus type [address] Lynne Transformer Assembler. Insulin 05/30/1993. Diabetic retinopathy bilateral lasers x4 [...] CT , AFP 12.2 Raul Worrell MD production line solderer Transplant Surgery Clinic Appt w/: Dr. Arias [...] pancreatic transplant. He needs to follow up correction with a jinrikisha driver and he was advised to lose more [...] not preclude listing: - consult with a jinrikisha driver - lose more weight - superficialization of [...] on 07/19/19. LHC: Multivessel coronary artery disease, CHANGE OF ADDRESS CLERK of the proximal RCA, Severe mid- LAD stenosis, ~60-70%. - LHC on 12/27/2019 --> Successful ARELI to mid LAD, Successful ARELI to RCA CHANGE OF ADDRESS CLERK, Impella used for renal protection (~125 cc [...] on the nuclear stress test with no cell changer the past few years. He is [...] on 07/19/19. LHC: Multivessel coronary artery disease, CHANGE OF ADDRESS CLERK of the proximal RCA, Severe mid- LAD stenosis, ~60-70%. - LHC on 12/27/2019 --> Successful ARELI to mid LAD, Successful ARELI to RCA CHANGE OF ADDRESS CLERK, Impella used for renal protection (~125 cc [...] daily Plan: - Will contact with primary casting cleaner for BP management 6) Hematological disorders - [...] on the nuclear stress test with no cell changer the past few years. He is [...] of the time was also spent in [id number] interaction with the patient as well as formulating a plan for management. Thank you for allowing us to participate in the care of your patient and please do not hesitate to reach out to us if any questions or concerns. Rosalie Posada MD, [facility], [facility] Interventional and Structural Cardiology [facility], [facility] Dr. Maier 12/06/2021 Impression and Recommendations: 1. Type I DM 2. CKD 3. Multivessel CAD, ARELI to LAD and RCA CHANGE OF ADDRESS CLERK with Impella support 4. Hx of testicular [...] check on BP control Sylvie Jurado MD [facility] Cardiology Dr. [...] mg/kg Committee Discussion Details: Pt brought to [facility] to discuss possible listing. -Reviewed PMH [...] maintained monthly visits with Joan Preshears at [facility] in [place]. She is both a certified [facility] Drug and Alcohol substance abuse counselor as well as [facility] licensed counselor to manage suicide [...] Committee Discussion Details: Pt was presented at [facility] to discuss positive drug screen. Reviewed [...] mg/kg Committee Discussion Details: Pt brought to [facility] to discuss for possible listing. Reviewed PMH and current problem list. -Pt in evaluation for KP. PMH of CAD, diabetic retinopathy, and neuropathy. -Pt was a previous referral that required intervention s/p LHC. Stents x2. Completed DAPT. Reviewed DSE and NM stress completed with this eval. Team would like pt to have close follow up every 6 months with the internal security manager. -Reviewed PMH of testicular cancer. Reviewed notes [...] estimated ejection fraction of 40% previously 43%. [facility]: 12/20/2022 Conclusion Patent stents in RCA [...] or text me on my cell phone [phone]. I appreciate the opportunity to participate in the care of your patient and look forward to being of service in the future as well. Sincerely, Alejandra Wellington MD, PhD, [facility]: 07/19/2019 ANGIOGRAPHY: i. Left main: short vessel that trifurcates into the LAD, LCx, and Ramus intermedius. ii. LAD: Long vessel that gives off a diagonal branch in the mid vessel after the first septal bronze chaser before wrapping around the apex distally. The prxoimal LAD has diffuse luminal irregularities. There is a severe 60-70% focal stenosis after the second septal bronze chaser. The LAD distal to this stenosis has [...] The rPDA and rPL fill distally via [id number] collaterals. v. Ramus intermedius: small caliber vessel with diffuse luminal irregularities. DOMINANCE: Right DIAGNOSTIC INTERPRETATIONS: 1. Multivessel coronary artery disease. 2. CHANGE OF ADDRESS CLERK of the proximal RCA 3. Severe mid-LAD stenosis, ~60-70%. RECOMMENDATIONS AFTER DIAGNOSTIC CATHETERIZATION: Medical management of chronic CAD. Aspirin 81 mg QDAY indefinitely. High intensity statin therapy. Pt prescribed Metoprolol tartrate 12.5 mg PO BID before discharge from outpatient procedure. Aggressive modification of atherosclerotic risk factors. Heart team evaluation for revascularization via coronary artery bypass grafting vs multivessel PCI. [facility]: 12/27/2019 LESION UNDERGOING INTERVENTION : PCI [...] mid LAD 2. Successful ARELI to RCA CHANGE OF ADDRESS CLERK 3. Impella used for renal protection (~125 [...] CONTRAST: 275 mL of Cystografin FINDINGS: A cement finisher helper radiograph was unremarkable. A Brown catheter was [...] Impression: It is the impression of this health and social care teacher that Godfrey Hollins has several positive factors [...] screen and SI. Has been going to [facility] every month-psych clearance sent Plan: sawmill or timber yard worker to provide supportive services as needed. Patient appears to be a reasonable candidate for transplant from a psychosocial perspective. -Post transplant arrangement forms are needed prior to being listed. Psychiatric Consult Recommended: Yes related to:Substance Abuse Transplant Propeller Tester: Melinda Farfan LMSW Abdominal Transplant Propeller Tester [phone] Transplant Caregiver Confirmation Note Caregiver Confirmation Date Primary Name of Primary: Norman Hollins Relationship: Father - Confirmed during initial assessment Secondary Name of Secondary: Jennifer Hollins Relationship: Sister - Confirmed during initial assessment BARBARA French Jennifer K, RN Registered Nurse Specialty: Procurement Accountant Telephone Encounter Signed Encounter Date: 06/25/2023 Received VM from Joan Wilson at [facility]. She has release to discuss pt. [phone]. I called her back and LVM. She called me back. She verified she both a certified [facility] Drug and Alcohol susbtance abuse counselor as well as [facility] licensed counselor he is seeing [...] - Ropinirole Coronary artery disease invo lving flandreau coronary artery of flandreau heart with angina pectoris 12/27/2019 02/04/2020
--- OUTSIDE RECORDS SUMMARY | 2025-06-03 15:58 | XMS_ITS | Encounter Summary ---
Author Organization [facility] Address [address] [place] [address] Phone Care Team Providers Care Helper Coordinator Name Role Phone Ariel Lua Nikhil DPM Unavailable [phone] Aisha Medina APRN, INBOUND CALL CENTER REPRESENTATIVE Primary Care Prov ider Juanjo Mclaughlin MD Unavailable Rita Lynne MD Unavailable Meron Gurrola RN Unavailable Unavailable Meron Gurrola RN Unavailable Unavailable Reason for Visit * Reason Comments Medication Refill Encounter Details Date Type Department Care Team (Late st Contact Info) Description 11/23/2020 Refill [facility] - Family Medicine [facility] [address] [place] [address] Aisha Medina APRN, INBOUND CALL CENTER REPRESENTATIVE #[address] [address] Medication Refill Social History Tobacco [...] with stage 4 chronic kidney disease (HCC) [facility] APN, INBOUND CALL CENTER REPRESENTATIVE 1 year ago 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[facility] INBOUND CALL CENTER REPRESENTATIVE 1 year ago Chest congestion [facility] Steele PAC 1 year ago 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) [facility] SENIOR OPERATIONS ANALYST, INBOUND CALL CENTER REPRESENTATIVE 1 year ago Penile lesion [facility] Gonzales, ÁNGEL Upcoming Appointments Future Appointments In 3 weeks Rita Lynne MD [facility] Endocrinology - [place], [facility] DAIRY HELPER - Recent and Past Visits Recent Visits Date Type Provider Dept 05/12/20 Office Visit Aisha Medina APN, CNP [facility] 11/01/19 Telemedicine Aisha Medina APN, CNP [facility] Showing recent visits within past 460 days with a meds authorizing provider and meeting all other requirements Future Appointments No visits were found meeting these conditions. Showing future appointments within next 90 days with a meds authorizing provider and meeting all other requirements * Telephone Encounter - Kenya Dumnot RN - 11/24/2020 11:39 AM CDT Pharmacy is calling about sildenafil refill. Asking if this can be approved as they will be closed due to the holiday. documented in this encounter Plan of Treatment Upcoming Encounters Date Type Department Care Team (Late st Contact Info) Description 06/16/2025 7:45 AM FORMAL SERVICE WAITER Office Visit [facility] Family Medicine [facility] [address] [place] [address] Aisha Medina APRN, INBOUND CALL CENTER REPRESENTATIVE #[address] [address] 07/06/2025 2:30 PM FORMAL SERVICE WAITER Office Visit [facility] Endocrinology [facility] #2 [place] [address] Rita Lynne MD #[address] [address] documented as of this encounter Visit Diagnoses Not on filedocumented in this encounter Additional Health Concerns Assessment Noted Time PHQ-9 Depression Total Score: 0 07/01/19 20 11:36 AM FORMAL SERVICE WAITER documented as of this encounter Care Teams Helper Coordinator Relationship Specialty Start Date End Date Aisha Medina APRN, INBOUND CALL CENTER REPRESENTATIVE #[address] [address] PCP - General Advanced Practice Nurse 07/17/18 Ariel Lua DPM Consulting Physician Podiatry 12/02/16 Juanjo Mclaughlin MD [address] [address] Consulting Physician Oncology 12/01/19 Rita Lynen MD #[address] [address] Consulting Physician Endocrinology 10/17/22 Meron Gurrola, RN [place] Nurse Bread Pan Greaser 01/09/24 01/15/24 Meron Gurrola, ZEINAB [place] Nurse Bread Pan Greaser 11/26/24 12/08/24 documented as of this encounter
--- OUTSIDE RECORDS SUMMARY | 2025-06-03 15:58 | XMS_ITS ---
Author Organization [facility] Address [address] [facility] [place] [address] Care Team Providers Care Mentally Impaired Teacher Name Role Phone Rita Lynne MD Unavailable Martha Worrell MD Unavailable Aisha Medina DISPUTE COORDINATOR-RN CARDIAC CATH Primary Care Provide r Transplant Episode Kidney Recipient [facility] ([place], [place]) - [facility] Organ Received: Left Kidney Transplanted on 06/13/2024 Marked as Active Follow-up on 06/13/2024 Kidney CoordinatorCotank Guzman RN Phone: N/A Fax: N/A Email: N/A [place] Organ Diagnosis Organ Primary Contributory Kidney Diabetes [...] N/A N/A Chip Rivera MD Referring Physician [phone] N/A Gabrielle Fournier Vb Net Developer N/A N/A N/A Melinda Farfan LMSW Regional Sales Director [phone] N/A N/A Events Post-Transplant Pre-Transplant Admitted: 06/12/2024 Referred: 02/12/2024 Transplanted: 06/13/2024 Evaluation began: 4 Discharged: 06/17/2024 Committee: 06/11/2024 [facility] qualified: 01/11/2022 Center waitlisted: 4 Dialysis History Dialysis History Start End Type Comments Center 05/01/2022 06/13/2024 Peritoneal Dialysis [facility] 01/11/2022 04/30/2022 In-center Hemodialysis [facility] D[facility] Information Center Phone Fax Address [facility] [phone] [address] [facility] [address]
--- OUTSIDE RECORDS SUMMARY | 2025-06-03 15:58 | XMS_ITS | Encounter Summary ---
Author Organization [facility] Address [address] [place] [address] Phone Care Team Providers Care Antitank Assault Gunner Name Role Phone Ariel Lua Nikhil DPM Unavailable [phone] Aihsa Medina APRN, CAT WAGON OPERATOR Primary Care Prov ider Juanjo Mclaughlin MD Unavailable Rita Lynne MD Unavailable Meron Gurrola RN Unavailable Unavailable Meron Gurrola RN Unavailable Unavailable Reason for Visit * Reason Comments Medication Refill Encounter Details Date Type Department Care Team (Late st Contact Info) Description 08/25/2020 Refill [facility] - Family Medicine [facility] #2 [place] [address] Aisha Medina APRN, CAT WAGON OPERATOR #[address] [address] Medication Refill Social History Tobacco [...] st Contact Info) Description 06/16/2025 7:45 AM PRODUCT DEVELOPMENT CHEMIST Office Visit [facility] - Family Medicine - [place] [address] [place] [address] Aisha Medina APRN, CAT WAGON OPERATOR #[address] [phone] 07/06/2025 2:30 PM PRODUCT DEVELOPMENT CHEMIST Office Visit [facility] - Endocrinology - [place] #2 [place] [address] Rita Lynne MD #[address] [phone] documented as of this encounter Visit Diagnoses Diagnosis Burning sensation of skin documented in this encounter Additional Health Concerns Assessment Noted Time PHQ-9 Depression Total Score: 0 07/01/19 11:36 AM PRODUCT DEVELOPMENT CHEMIST documented as of this encounter Care Teams Antitank Assault Gunner Relationship Specialty Start Date End Date Aisha Medina APRN, CAT WAGON OPERATOR #[address] [phone] PCP - General Advanced Practice Nurse 07/17/18 Ariel Lua DPM Consulting Physician Podiatry 12/02/16 Juanjo Mclaughlin MD [address] [place] [phone] Consulting Physician Oncology 12/01/19 Rita Lynne MD #[address] [phone] Consulting Physician Endocrinology 10/17/22 Meron Gurrola RN [place] Nurse Wind Farm Designer 01/09/24 01/15/24 Meron Gurrola RN [place] Nurse Wind Farm Designer 11/26/24 12/08/24 documented as of this encounter
--- OUTSIDE RECORDS SUMMARY | 2025-06-03 15:58 | XMS_ITS | Encounter Summary ---
Author Organization [facility] Address [address] [place] [address] Phone Care Team Providers Care Conservator Artifacts Name Role Phone Ariel Lua Nikhil DPM Unavailable [phone] Aisha Medina APRN, GERONTOLOGY AIDE Primary Care Prov ider Juanjo Mclaughlin MD Unavailable Rita Lynne MD Unavailable Meron Gurrola RN Unavailable Unavailable Meron Gurrola RN Unavailable Unavailable Reason for Visit * Reason Comments Medication Refill Encounter Details Date Type Department Care Team (Late st Contact Info) Description 11/22/2020 [facility]ill [facility] #2 [place] [address] Rita Lynne MD #[address] [address] Medication Refill Social History Tobacco [...] st Contact Info) Description 06/16/2025 7:45 AM HAND DRY CLEANER Office Visit [facility] - Family Medicine [facility] #2 [place] [address] Aisha Medina APRN, GERONTOLOGY AIDE #[address] [phone] 07/06/2025 2:30 PM HAND DRY CLEANER Office Visit [facility] - Endocrinology - [place] #2 [place] [address] Rita Lynne MD #[address] [address] documented as of this encounter Visit Diagnoses Not on filedocumented in this encounter Additional Health Concerns Assessment Noted Time PHQ-9 Depression Total Score: 0 07/01/19 20 11:36 AM HAND DRY CLEANER documented as of this encounter Care Teams Conservator Artifacts Relationship Specialty Start Date End Date Aisha Medina APRN, GERONTOLOGY AIDE #[address] [phone] PCP - General Advanced Practice Nurse 07/17/18 Ariel Lua DPM Consulting Physician Podiatry 12/02/16 Juanjo Mclaughlin MD [address] [place] [address] Consulting Physician Oncology 12/01/19 Rita Lynne MD #[address] [address] Consulting Physician Endocrinology 10/17/22 Meron Gurrola, RN [place] Nurse Senior Erp Consultant 01/09/24 01/15/24 Meron Gurrola, ZEINAB [place] Nurse Senior Erp Consultant 11/26/24 12/08/24 documented as of this encounter
--- OUTSIDE RECORDS SUMMARY | 2025-06-03 15:58 | XMS_ITS | Encounter Summary ---
Author Organization [facility] Address [address] [place] [address] Phone Care Team Providers Care Yield Clerk Name Role Phone Ariel Lua Nikhil DPM Unavailable [phone] Aisha Medina APRN, AIRBRUSH ARTIST Primary Care Prov ider Juanjo Mclaughlin MD Unavailable Rita Lynne MD Unavailable Meron Gurrola RN Unavailable Unavailable Meron Gurrola RN Unavailable Unavailable Reason for Visit * Reason Comments Medication Refill Encounter Details Date Type Department Care Team (Late st Contact Info) Description 11/23/2020 Refill [facility] Endocr[facility]ology [facility] #2 [place] [address] Rita Lynne MD #[address] [address] Medication Refill Social History Tobacco [...] st Contact Info) Description 06/16/2025 7:45 AM RUBY DEVELOPER Office Visit [facility] - Family Medicine [facility] #2 [place] [address] Aisha Medina APRN, AIRBRUSH ARTIST #[address] [phone] 07/06/2025 2:30 PM RUBY DEVELOPER Office Visit [facility] - Endocrinology - [place] #2 [place] [address] Rita Lynne MD #[address] [address] documented as of this encounter Visit Diagnoses Not on filedocumented in this encounter Additional Health Concerns Assessment Noted Time PHQ-9 Depression Total Score: 0 07/01/19 20 11:36 AM RUBY DEVELOPER documented as of this encounter Care Teams Yield Clerk Relationship Specialty Start Date End Date Aisha Medina APRN, AIRBRUSH ARTIST #[address] [phone] PCP - General Advanced Practice Nurse 07/17/18 Ariel Lua DPM Consulting Physician Podiatry 12/02/16 Juanjo Mclaughlin MD [address] [place] [address] Consulting Physician Oncology 12/01/19 Rita Lynne MD #[address] [address] Consulting Physician Endocrinology 10/17/22 Meron Gurrola, RN [place] Nurse Stone Spreader Operator 01/09/24 01/15/24 Meron Gurrola, ZEINAB [place] Nurse Stone Spreader Operator 11/26/24 12/08/24 documented as of this encounter
--- OUTSIDE RECORDS SUMMARY | 2025-06-03 15:58 | XMS_ITS | Encounter Summary ---
Author Organization [facility] Address [address] [place] [address] Phone Care Team Providers Care Forestry Farm Laborer Name Role Phone Ariel Lua Nikhil DPM Unavailable [phone] Aisha Medina APRN, STERILE PROCESS COORDINATOR Primary Care Prov ider Juanjo Mclaughlin MD Unavailable Rita Lynne MD Unavailable Meron Gurrola RN Unavailable Unavailable Meron Gurrola RN Unavailable Unavailable Reason for Visit * Reason Comments Medication Refill Encounter Details Date Type Department Care Team (Late st Contact Info) Description 02/21/2023 Refill [facility] - Family Medicine [facility] #2 [place] [address] Aisha Medina APRN, STERILE PROCESS COORDINATOR #[address] [address] Medication Refill Social History [...] 04/11/22 Office Visit Aisha Medina APRN, CNP [facility] Showing recent visits within past 365 days and meeting all other requirements Future Appointments No visits were found meeting these conditions. Showing future appointments within next 90 days and meeting all other requirements documented in this encounter Plan of Treatment Upcoming Encounters Date Type Department Care Team (Late st Contact Info) Description 06/16/2025 7:45 AM LOAD MANAGER Office Visit [facility] - Family Medicine - [place] #2 [place] [phone] Aisha Medina APRN, STERILE PROCESS COORDINATOR #[address] [phone] 07/06/2025 2:30 PM LOAD MANAGER Office Visit [facility] - Endocrinology - [place] #2 [place] [phone] Rita Lynne MD #[address] [address] documented as of this encounter Visit Diagnoses Not on filedocumented in this encounter Additional Health Concerns Assessment Noted Time PHQ-9 Depression Total Score: 0 03/01/20 21 10:00 AM CDT documented as of this encounter Care Teams Forestry Farm Laborer Relationship Specialty Start Date End Date Aisha Medina APRN, KASSI #[address] [facility] [address] [place] [address] PCP - General Advanced Practice Nurse 07/17/18 Ariel Lua DPM Consulting Physician Podiatry 12/02/16 Juanjo Mclaughlin MD [facility] [address] [address] Consulting Physician Oncology 12/01/19 Rita Lynne MD #[address] [facility] [address] [place] [address] Consulting Physician Endocrinology 10/17/22 Meron Gurrola, RN [place] Nurse Manager Scientific 01/09/24 01/15/24 Meron Gurrola RN [place] Nurse Manager Scientific 11/26/24 12/08/24 documented as of this encounter
--- OUTSIDE RECORDS SUMMARY | 2025-06-03 15:58 | XMS_ITS | Encounter Summary ---
Author Organization [facility] Address [address] [place] [address] Phone Care Team Providers Care Jack Frame Tender Name Role Phone Ariel Lua Nikhil DPM Unavailable [phone] Aisha Medina APRN, TOOLING ENGINEERING TECH Primary Care Prov ider Juanjo Mclaughlin MD Unavailable Rita Lynne MD Unavailable Meron Gurrola RN Unavailable Unavailable Meron Gurrola RN Unavailable Unavailable Reason for Visit * Reason Comments Medication Refill Encounter Details Date Type Department Care Team (Late st Contact Info) Description 06/17/2023 Refill [facility] Family Medicine [facility] #2 [place] [address] Aisha Medina APRN, TOOLING ENGINEERING TECH #[address] [address] Medication Refill Social History [...] Provider Dept 07/01/23 Appointment Aisha Medina APRN, TOOLING ENGINEERING TECH [facility] Showing future appointments within next 90 [...] Provider Dept 07/01/23 Appointment Aisha Medina APRN, TOOLING ENGINEERING TECH [facility] Showing future appointments within next 90 days and meeting all other requirements T PERSON documented in this encounter Plan of Treatment Upcoming Encounters Date Type Department Care Team (Late st Contact Info) Description 06/16/2025 7:45 AM VAULT PERSON Office Visit [facility] - Family Medicine - [place] [address] [place] [address] Aisha Medina APRN, TOOLING ENGINEERING TECH #[address] [phone] 07/06/2025 2:30 PM VAULT PERSON Office Visit [facility] Endocrinology [facility] #2 [place] [address] Rita Lynne MD #[address] [address] documented as of this encounter Visit Diagnoses [...] documented as of this encounter Care Teams Jack Frame Tender Relationship Specialty Start Date End Date Aisha Medina APRN, TOOLING ENGINEERING TECH #[address] [address] PCP - General Advanced Practice Nurse 07/17/18 Ariel Lua DPM Consulting Physician Podiatry 12/02/16 Juanjo Mclaughlin MD [address] [place] [address] Consulting Physician Oncology 12/01/19 Rita Lynne MD #[address] [address] Consulting Physician Endocrinology 10/17/22 Gurrola, Meron M, RN [place] Nurse Manager Social Work 01/09/24 01/15/24 Meron Gurrola RN [place] Nurse Manager Social Work 11/26/24 12/08/24 documented as of this encounter
--- OUTSIDE RECORDS SUMMARY | 2025-06-03 15:58 | XMS_ITS | Encounter Summary ---
Author Organization [facility] Address [address] [place] [address] Phone Care Team Providers Care Melting Furnace Skimmer Name Role Phone Ariel Lua DPM Unavailable [phone] Aisha Medina APRN, FISH HATCHERY SPECIALIST Primary Care Prov ider Juanjo Mclaughlin MD Unavailable Rita Lynne MD Unavailable Meron Gurrola RN Unavailable Unavailable Meron Gurrola RN Unavailable Unavailable Reason for Visit * Reason Comments Medication Refill Encounter Details Date Type Department Care Team (Late st Contact Info) Description 08/31/2020 Refill [facility] [address] [place] [address] Aisha Medina APRN, FISH HATCHERY SPECIALIST #[address] [address] Medication Refill Social History [...] Receipt confirmed by pharmacy (08/01/2020 ??2:34 PM PLANT TECHNICAL SPECIALIST) atorvastatin (LIPITOR) 40 MG Tablet [[id number]] 143 Status: Active Ordering user: Aisha Medina APN, CNP 08/01/20 143 Authorized by: Aisha Medina APN, CNP Frequency: ??08/01/20 - Until Discontinued Released by: Aisha Medina APN, CNP 08/01/20 143 Diagnoses Hypertension, unspecified type [I10] Hyperlipidemia, unspecified hyperlipidemia type [E78.5] Associated Diagnoses Hypertension, unspecified type Hyperlipidemia, unspecified hyperlipidemia type Pharmacy [place], [place] - [address] duplicate T TECHNICAL SPECIALIST documented in this encounter Plan of Treatment Upcoming Encounters Date Type Department Care Team (Late st Contact Info) Description 06/16/2025 7:45 AM PLANT TECHNICAL SPECIALIST Office Visit [facility] - Family Medicine - [place] #2 [place] [address] Aisha Medina APRN, CNP #2 [facility] [address] [place] [address] 07/06/2025 2:30 PM PLANT TECHNICAL SPECIALIST Office Visit [facility] - Endocrinology - [place] #2 [place] [address] Rita Lynne MD #2 [facility] [address] [place] [address] documented as of this encounter Visit Diagnoses Diagnosis Hypertension, unspecified type Hyperlipidemia, unspecified hyperlipidemia type documented in this encounter Additional Health Concerns Assessment Noted Time PHQ-9 Depression Total Score: 0 07/01/19 11:36 AM PLANT TECHNICAL SPECIALIST documented as of this encounter Care Teams Melting Furnace Skimmer Relationship Specialty Start Date End Date Aisha Medina APRN, FISH HATCHERY SPECIALIST #2 [facility] [address] [place] [address] PCP - General Advanced Practice Nurse 07/17/18 Ariel Lua DPM Consulting Physician Podiatry 12/02/16 Juanjo Mclaughlin MD [address] [place] [address] Consulting Physician Oncology 12/01/19 Rita Lynne MD #2 [facility] [address] [place] [address] Consulting Physician Endocrinology 10/17/22 Meron Gurrola RN [place] Nurse Cover Operator 01/09/24 01/15/24 Meron Gurrola RN [place] Nurse Cover Operator 11/26/24 12/08/24 documented as of this encounter
--- OUTSIDE RECORDS SUMMARY | 2025-06-03 15:58 | XMS_ITS | Encounter Summary ---
Author Organization [facility] Address [address] [place] [address] Phone Care Team Providers Care Oracle Database Manager Name Role Phone Ariel Lua Nikhil DPM Unavailable [phone] Aisha Medina APRN, WINCH DRIVER Primary Care Prov ider Juanjo Mclaughlin MD Unavailable Rita Lynne MD Unavailable Meron Gurrola RN Unavailable Unavailable Meron Gurrola RN Unavailable Unavailable Reason for Visit * Reason Comments Medication Refill Encounter Details Date Type Department Care Team (Late st Contact Info) Description 12/27/2022 Refill [facility] - Family Medicine [facility] #2 [place] [address] Aisha Medina APRN, WINCH DRIVER #[address] [address] Medication Refill Social History [...] 2 Signed by: Aisha Medina APRN, KASSI [facility] * Telephone Encounter - Kaitlyn Mendieta RN - 12/27/2022 12:12 PM CDT Duplicate documented in this encounter Plan of Treatment Upcoming Encounters Date Type Department Care Team (Late st Contact Info) Description 06/16/2025 7:45 AM CLEAN UP HELPER BANQUET Office Visit [facility] - Family Medicine [facility] #2 [place] [address] Aisha Medina APRN, WINCH DRIVER #2 [facility] [address] [place] [address] 07/06/2025 2:30 PM CLEAN UP HELPER BANQUET Office Visit [facility] Medical [facility] - Endocrinology - [place] #2 [place] [address] Rita Lynne MD #2 [facility] [address] [place] [address] documented as of this encounter Visit Diagnoses [...] documented as of this encounter Care Teams Oracle Database Manager Relationship Specialty Start Date End Date Aisha Medina, LABORER TANBARK, WINCH DRIVER #2 [facility] [address] [place] [address] PCP - General Advanced Practice Nurse 07/17/18 Ariel Lua DPM Consulting Physician Podiatry 12/02/16 Juanjo Mclaughlin MD [address] [place] [address] Consulting Physician Oncology 12/01/19 Rita Lynne MD #2 [facility] [address] [place] [address] Consulting Physician Endocrinology 10/17/22 Meron Gurrola, RN [place] Nurse Master Chef 01/09/24 01/15/24 Meron Gurrola, RN [place] Nurse Master Chef 11/26/24 12/08/24 documented as of this encounter
--- OUTSIDE RECORDS SUMMARY | 2025-06-03 15:58 | XMS_ITS | Encounter Summary ---
Author Organization [facility] Address [address] [facility] [place] [address] Care Team Providers Care Shoe Sewing Machine Operator And Tender Name Role Phone Rita Lynne MD Unavailable Martha Worrell MD Unavailable [phone] Aisha Medina EXTRACTOR OPERATOR-BATTERY PLATE ASSEMBLER Primary Care Provide r Encounter Details Date Type Department Care Team (Latest Contact Info) Description 06/03/2025 Travel Social History Tobacco Use Types Packs/Day Years [...] and heating? Not hard at all 03/23/2025 [facility] [place] [facility] Occupat ional Health - Occupational Stress [...] any time in the past 12 m [facility], were you homeless or living in [...] st Contact Info) Description 07/13/2025 9:30 AM ELDERLY SITTER Office Visit [facility] - Nephrology [address] [place] [address], [place] [address] 09/15/2025 3:40 PM CDT Office Visit [facility] - Endocrinology [address] [place] [phone] Michael Arceo MD [address] [place] [address] [place] [address] documented as of this encounter Goals Goal Patient Goal Type Associated Problems Recent Progress Patient-Stated? Author Blood Pressure < 140/90 Blood Pressure 153/81(2024 11:04 AM CDT) Tammy Santiago RN documented as of this encounter Visit Diagnoses Not on filedocumented in this encounter Care Teams Shoe Sewing Machine Operator And Tender Relationship Specialty Start Date End Date Aisha Medina APRN-BATTERY PLATE ASSEMBLER PCP - General Nurse Practitioner 03/12/19 Rita Lynne MD 03/02/19 Martha Worrell MD Nephrology 03/12/19 documented as of this encounter
--- OUTSIDE RECORDS SUMMARY | 2025-06-03 15:58 | XMS_ITS | Clinical Summary ---
Author Organization [facility] Address [address] [place] [address] Care Team Providers Care Ostomy Rn Name Role Phone Unavailable Primary Care Provider [...] Comments Blood Pressure 146/80 05/17/2020 12:00 PM POUNCING LATHE OPERATOR Pulse 81 03/24/2020 12:00 PM CDT Temperature 36.9 C (98.4 F) 05/17/2020 12:00 PM POUNCING LATHE OPERATOR Respiratory Rate 18 05/17/2020 12:00 PM POUNCING LATHE OPERATOR Oxygen Saturation 98% 05/17/2020 12:00 PM POUNCING LATHE OPERATOR Inhaled Oxygen Concentration - - Weight 90.3 kg (199 lb) 05/17/2020 12:00 PM POUNCING LATHE OPERATOR Height 175.3 cm (5' 9) 05/17/2020 12:00 PM POUNCING LATHE OPERATOR Body Mass Index 29.39 05/17/2020 12:00 PM POUNCING LATHE OPERATOR Plan of Treatment Health Maintenance Due [...]
--- OUTSIDE RECORDS SUMMARY | 2025-06-03 15:58 | XMS_ITS | Encounter Summary ---
Author Organization [facility] Address [address] [place] [address] Phone Care Team Providers Care Endocrinology Teacher Name Role Phone Ariel Lua Nikhil DPM Unavailable [phone] Aisha Medina APRN, DRUPAL ARCHITECT Primary Care Prov ider Juanjo Mclaughlin MD Unavailable Rita Lynne MD Unavailable Meron Gurrola RN Unavailable Unavailable Meron Gurrola RN Unavailable Unavailable Reason for Visit * Reason Comments Medication Refill Encounter Details Date Type Department Care Team (Late st Contact Info) Description 01/29/2023 Refill [facility] - Family Medicine [facility] #2 [place] [address] Aisha Medina APRN, DRUPAL ARCHITECT #[address] [address] Medication Refill Social History Tobacco [...] 04/11/22 Office Visit Aisha Medina APRN, KASSI [facility] Show[facility] recent visits within past 365 days and meeting all other requirements Future Appointments No visits were found meeting these conditions. Showing future appointments within next 90 days and meeting all other requirements documented in this encounter Plan of Treatment Upcoming Encounters Date Type Department Care Team (Late st Contact Info) Description 06/16/2025 7:45 AM MUSEUM OR ZOO DIRECTOR Office Visit [facility] Medical [facility] - Family Medicine - [place] #2 [place] [address] Aisha Medina APRN, DRUPAL ARCHITECT #2 [facility] [address] [place] [address] 07/06/2025 2:30 PM MUSEUM OR ZOO DIRECTOR Office Visit [facility] - Endocrinology - [place] #2 [place] [address] Rita Lynne MD #2 [facility] [address] [place] [address] documented as of this encounter Visit Diagnoses Diagnosis 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, not stated as uncontrolled documented in this encounter Additional Health Concerns Assessment Noted Time PHQ-9 Depression Total Score: 0 03/01/20 21 10:00 AM CDT documented as of this encounter Care Teams Endocrinology Teacher Relationship Specialty Start Date End Date Aisha Medina APRN, DRUPAL ARCHITECT #2 [facility] [address] [place] [address] PCP - General Advanced Practice Nurse 07/17/18 Ariel Lua DPM Consulting Physician Podiatry 12/02/16 Juanjo Mclaughlin MD [address] [place] [address] Consulting Physician Oncology 12/01/19 Rita Lynne MD #2 [facility] [address] [place] [address] Consulting Physician Endocrinology 10/17/22 Meron Gurrola RN [place] Nurse Secondary Special Education Teacher 01/09/24 01/15/24 Meron Gurrola RN [place] Nurse Secondary Special Education Teacher 11/26/24 12/08/24 documented as of this encounter
--- OUTSIDE RECORDS SUMMARY | 2025-06-03 15:58 | XMS_ITS | Encounter Summary ---
Author Organization [facility] Address [address] [place] [address] Phone Care Team Providers Care Auto Damage Insurance Appraiser Name Role Phone Ariel Lua DPM Unavailable [phone] Aisha Medina APRN, CLIENT SERVICE ASSOCIATE Primary Care Prov ider Juanjo Mclaughlin MD Unavailable Rita Lynne MD Unavailable Meron Gurrola RN Unavailable Unavailable Meron Gurrola RN Unavailable Unavailable Reason for Visit * Reason Comments Medication Refill Encounter Details Date Type Department Care Team (Late st Contact Info) Description 09/02/2020 Refill [facility] [address] [place] [address] Aisha Medina APRN, CLIENT SERVICE ASSOCIATE #[address] [address] Medication Refill Social History [...] was received - refused as duplicate request. ACULTURE CONTRACTOR documented in this encounter Plan of Treatment Upcoming Encounters Date Type Department Care Team (Late st Contact Info) Description 06/16/2025 7:45 AM PERMACULTURE CONTRACTOR Office Visit [facility] - Family Medicine [facility] [place] #2 [place] [address] Aisha Medina APRN, CLIENT SERVICE ASSOCIATE #[address] [address] 07/06/2025 2:30 PM PERMACULTURE CONTRACTOR Office Visit [facility] Endocrinology - [place] #2 [place] [address] Rita Lynne MD #[address] [address] documented as of this encounter Visit Diagnoses Diagnosis Hypertension, unspecified type Hyperlipidemia, unspecified hyperlipidemia type documented in this encounter Additional Health Concerns Assessment Noted Time PHQ-9 Depression Total Score: 0 07/01/19 20 11:36 AM PERMACULTURE CONTRACTOR documented as of this encounter Care Teams Auto Damage Insurance Appraiser Relationship Specialty Start Date End Date Aisha Medina APRN, CLIENT SERVICE ASSOCIATE #[address] [address] PCP - General Advanced Practice Nurse 07/17/18 Ariel Lua DPM Consulting Physician Podiatry 12/02/16 Juanjo Mclaughlin MD [address] [place] [address] Consulting Physician Oncology 12/01/19 Rita Lynne MD #[address] [address] Consulting Physician Endocrinology 10/17/22 Meron Gurrola RN [place] Nurse Rate Setter 01/09/24 01/15/24 Meron Gurrola RN [place] Nurse Rate Setter 11/26/24 12/08/24 documented as of this encounter
--- OUTSIDE RECORDS SUMMARY | 2025-06-03 15:58 | XMS_ITS | Encounter Summary ---
Author Organization [facility] Address [address] [place] [address] Phone Care Team Providers Care Regulatory Law Specialist Name Role Phone Aisha Medina NP Primary Care Provider + Encounter Details Date Type Department Care Team (Late st Contact Info) Description 07/20/2020 Ophth Exam 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
--- OUTSIDE RECORDS SUMMARY | 2025-06-03 15:58 | XMS_ITS | Encounter Summary ---
Author Organization [facility] Address [address] [place] [address] Phone Care Team Providers Care Care Manager Name Role Phone Ariel Lua Nikhil DPM Unavailable [phone] Aisha Medina APRN, INSTRUMENT MAKER AND REPAIRER Primary Care Prov ider Juanjo Mclaughlin MD Unavailable Rita Lynne MD Unavailable Meron Gurrola RN Unavailable Unavailable Meron Gurrola RN Unavailable Unavailable Reason for Visit * Reason Comments Medication Refill Encounter Details Date Type Department Care Team (Late st Contact Info) Description 06/16/2023 Refill [facility] - [facility] [address] [place] [address] Aisha Medina APRN, INSTRUMENT MAKER AND REPAIRER [address] [address] Medication Refill Social History [...] Dept 07/01/23 Appointment Aisha Medina APRN, [facility] Showing future appointments within next 90 days and meeting all other requirements PMENT SPECIALIST documented in this encounter Plan of Treatment Upcoming Encounters Date Type Department Care Team (Late st Contact Info) Description 06/16/2025 7:45 AM EQUIPMENT SPECIALIST Office Visit [facility] - Family Medicine - [place] [address] [place] [address] Aisha Medina APRN, INSTRUMENT MAKER AND REPAIRER [address] [facility] [address] [place] [address] 07/06/2025 2:30 PM EQUIPMENT SPECIALIST Office Visit [facility] Medical [facility] - Endocrinology - [place] [address] [place] [address] Rita Lynne MD [address] [facility] [address] [place] [address] documented as of this encounter Visit Diagnoses Diagnosis 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, not stated as uncontrolled documented in this encounter Additional Health Concerns Assessment Noted Time PHQ-9 Depression Total Score: 0 03/01/20 21 10:00 AM CDT documented as of this encounter Care Teams Care Manager Relationship Specialty Start Date End Date Aisha Medina APRN, [facility] [address] [facility] [address] [place] [address] PCP - General Advanced Practice Nurse 07/17/18 Ariel Lua DPM Consulting Physician Podiatry 12/02/16 Juanjo Mclaughlin MD [address] [place] [id number] Consulting Physician Oncology 12/01/19 Rita Lynne MD [address]2 [facility] [address] [place] [address] Consulting Physician Endocrinology 10/17/22 Meron Gurrola, RN [place] Nurse Chief Psychology 01/09/24 01/15/24 Meron Gurrola, RN [place] Nurse Chief Psychology 11/26/24 12/08/24 documented as of this encounter
--- OUTSIDE RECORDS SUMMARY | 2025-06-03 15:58 | XMS_ITS | Clinical Summary ---
Author Organization [facility] Address [address] [facility] [place] [address] Care Team Providers Care Culinary Assistant Name Role Phone Rita Lynne MD Unavailable Martha Worrell MD Unavailable [phone] Aisha Medina CODING EDUCATOR-RADIATION THERAPY TECHNICIAN Primary Care Provide r Source Comments [facility],non-owned Affiliates and Associated Physician Practices is amultiple site organization consisting of ambulatory clinics and hospital sitesin [place], [place], [place] and [place]. This disclosure is being madepursuant to the Care Everywhere program and may not contain all information available regarding this patient. Last updated 18.[facility] Allergies Active Allergy Reactions Criticality Noted Date Comments Live Vaccines (Immunodeficiency) Other immunosuppression Medications * Be aware that medications may not be up to date on this document. Alwaysverify current medications with the patient. ONETOUCH VERIO test strip 02/18/20 21 Active blood glucose (ONETOUCH VERIO) test strip USE TO TEST BLOOD SUGAR FOUR TIMES A DAY 11/24/19 21 Active TRUEplus Lancets 30G MISC 10/06/19 22 Active acetaminophen (Tylenol) 325 MG tablet Take 2 (two) tablets by mouth every 4 hours as needed for Pain Maximum allowable Acetaminophen amount = 4 Grams (4000 mg) / 24 hours. 3 06/17/20 24 Active Insulin Pen Needle (Pentips) 32G X 4 MM MISC USE ONE PEN NEEDLE 4 TIMES DAILY FOR INJECTIONS 100 Each 4 2:20 PM TAX PREPARER 06/17/20 Active sodium zirconium cyclosilicate (Lokelma) 10 g packet Take 1 (one) packet by mouth once daily 30 packet 11 06/21/20 24 Active Additional Information Patient not taking.Reason: Provider adjusted, Reported on 04/20/2025 predniSONE (Deltasone) 5 MG tablet Take 1 (one) tablet by mouth once daily 30 tablet 06/29/20 24 Active pantoprazole EC (Protonix) 40 MG tablet Take 1 (one) tablet by mouth once daily 30 tablet 11 07/06/19 25 Active rosuvastatin (Crestor) 20 MG tablet Take 1 (one) tablet by mouth at bedtime 30 tablet 08/24/19 25 Active carvedilol (Coreg) 12.5 MG tablet Take 1 (one) tablet by mouth 2 times daily with morning and evening meal 60 tablet 08/24/19 25 Active cinacalcet (Sensipar) 30 MG tablet Take 1 (one) tablet by mouth 2 times daily with morning and evening meal 60 tablet 08/24/19 25 Active allopurinol (Zyloprim) 100 MG tablet Take 1 (one) tablet by mouth once daily 30 tablet 08/24/19 25 Active hydroCHLOROthiazi de (Hydrodiuril) 25 MG tablet Take 1 (one) tablet by mouth once daily 90 tablet 09/02/19 25 Active rivaroxaban (Xarelto) 2.5 MG TABS tablet Take 1 (one) tablet by mouth 2 times daily 60 tablet 09/24/19 25 Active amLODIPine (Norvasc) 2.5 MG tabletIndications :Primary hypertension,Type 1 diabetes mellitus with other specified complication (HCC),Kidney transplant recipient (HCC),Neuropathy, At risk for rejection of transplanted organ,Superficial femoral artery occlusion,Hyperch olesteremia Take 1 (one) tablet by mouth once daily 90 tablet 3 10/28/19 25 Active tadalafil (Cialis) 20 MG tablet Take 1 (one) tablet by mouth every 72 hours as needed (before sex for a better erection) Take half dose at first. Don't take with blood pressure medicines. 10 tablet 5 11/06/19 25 Active mycophenolate (Myfortic) [address] tablet TAKE 1 TABLET BY MOUTH TWICE DAILY 60 tablet 11 11/20/19 25 Active aspirin (Aspirin) 81 MG chew tablet CHEW AND SWALLOW 1 TABLET BY MOUTH DAILY 30 tablet 3 11/26/19 25 Active sodium bicarbonate 650 MG tablet TAKE 2 TABLETS BY MOUTH TWICE DAILY 60 tablet 11 01/11/20 25 Active LORazepam (Ativan) 1 MG tablet Take 1 (one) tablet by mouth 11/03/19 25 Active Insulin Disposable Pump (Omnipod 5 [id number] Pods Gen 5) MISC CHANGE POD EVERY 3 DAYS 12/23/19 25 Active gabapentin (Neurontin) 300 MG capsule TAKE 1 CAPSULE BY MOUTH THREE TIMES DAILY 90 capsule 3 02/10/20 25 Active oxyCODONE, immediate release, (Roxicodone) 5 MG tabletIndications :Post-op pain Take 1 (one) tablet by mouth every 4 hours as needed 12 tablet 03/27/20 25 Active Additional Information Patient not taking.Reason: Patient adjusted (NOT NEEDED), Reported on 04/20/2025 metoclopramide (Reglan) 5 MG tablet TAKE 1 TABLET BY MOUTH EVERY 6 HOURS NEEDED FOR NAUSEA OR VOMITING 30 tablet 3 04/04/20 25 Active tacrolimus ER 24hr (Envarsus XR) 1 MG tabletIndications :Kidney transplant recipient (HCC),Type 1 diabetes mellitus with other specified complication (HCC),At risk for rejection of transplanted organ,Primary hypertension,Radha min D deficiency Take 1 (one) tablet by mouth once daily Swallow whole. Do not crush or chew tablets. 30 tablet 11 05/03/20 25 Active vitamin D3 (Cholecalciferol) 25 MCG (1000 UNITS) tabletIndications :Kidney transplant recipient (HCC),Type 1 diabetes mellitus with other specified complication (HCC),At risk for rejection of transplanted organ,Primary hypertension,Radha min D deficiency Take 2 (two) tablets by mouth once daily 60 tablet 11 05/03/20 25 Active tacrolimus ER 24hr (Envarsus XR) 0.75 MG tablet Take 2 (two) tablets by mouth once daily Swallow whole. Do not crush or chew tablets. 60 tablet 11 05/05/20 25 Active rOPINIRole (Requip) 1 MG tablet Take 1 (one) tablet by mouth at bedtime 30 tablet 3 05/05/20 25 Active rOPINIRole (Requip) 1 MG tablet TAKE 1 TABLET BY MOUTH AT BEDTIME 30 tablet 3 12/03/19 25 025 Discontin ued(Reord er) tacrolimus ER 24hr (Envarsus XR) 0.75 MG tabletIndications :Kidney transplant recipient (HCC),Type 1 diabetes mellitus with other specified complication (HCC),At risk for rejection of transplanted organ,Primary hypertension,Radha min D deficiency Take 2 (two) tablets by mouth once daily Swallow whole. Do not crush or chew tablets. 60 tablet 11 05/03/20 25 025 Discontin ued(Dose Adjustmen t) Active Problems Problem Noted Date Diagnosed Date [...] Rivera Transplant Date: 06/13/2025 Donor: UNOS ID: [id number] Match ID: [id number] Criteria: DBD KDPI: 25 CMV D+/R- EBV [...] Non-Reactive for HBV DNA Test performed with [employer] Elite Assay Kit. Assessment & Plan (03/27/2025 [...] Godfrey Hollins 1985 Listing Date: 05/18/2021 Referring Table Saw Operator: Dr. Chip Rivera Kidney Disease: DM1 Dialysis Info: Type: HD 01/11/2022, changed to PD 05/01/2022 Start: 01/11/2022 Blood Type: O POS Body mass index is 28.06 kg/m . Endocrinology: Dr Lynne @ [facility] in [place], [place] ALERTS : May need vasc surg assistance due to extensive calcifications. Immunosuppression Induction Method/Plan: Antithymocyte globulin (rabbit) (Thymoglobulin) 3mg/kg CKD d/t DMI Past Medical History: Diagnosis Date CAD (coronary artery disease) CKD (chronic kidney disease) stage 4, GFR 15-29 ml/min CKD (chronic kidney disease), stage IV Coronary artery disease 2019 stents x2 ARELI to mid LAD and ARELI it the RCA FIRE EXTINGUISHER MECHANIC Diabetes mellitus type [address] Lynne Pillow Filler. Insulin 05/30/1993. Diabetic retinopathy bilateral lasers x4 [...] CT , AFP 12.2 Raul Worrell MD on air host Transplant Surgery Clinic Appt w/: Dr. Arias [...] needs to follow up correction with a radius grinder and he was advised to lose more [...] not preclude listing: - consult with a radius grinder - lose more weight - superficialization of [...] on 07/19/19. LHC: Multivessel coronary artery disease, FIRE EXTINGUISHER MECHANIC of the proximal RCA, Severe mid- LAD stenosis, ~60-70%. - LHC on 12/27/2019 --> Successful ARELI to mid LAD, Successful ARELI to RCA FIRE EXTINGUISHER MECHANIC, Impella used for renal protection (~125 cc [...] on the nuclear stress test with no global climate change analyst the past few years. He is on [...] on 07/19/19. LHC: Multivessel coronary artery disease, FIRE EXTINGUISHER MECHANIC of the proximal RCA, Severe mid- LAD stenosis, ~60-70%. - LHC on 12/27/2019 --> Successful ARELI to mid LAD, Successful ARELI to RCA FIRE EXTINGUISHER MECHANIC, Impella used for renal protection (~125 cc [...] daily Plan: - Will contact with primary boat designer for BP management 6) Hematological disorders - [...] on the nuclear stress test with no global climate change analyst the past few years. He is on [...] of the time was also spent in [id number] interaction with the patient as well as formulating a plan for management. Thank you for allowing us to participate in the care of your patient and please do not hesitate to reach out to us if any questions or concerns. Rosalie Posada MD, [facility], [facility] Interventional and Structural Cardiology [facility] Dr. Maier 12/06/2021 Impression and Recommendations: 1. Type I DM 2. CKD 3. Multivessel CAD, ARELI to LAD and RCA FIRE EXTINGUISHER MECHANIC with Impella support 4. Hx of testicular [...] check on BP control Sylvie Jurado MD Medical [facility] Cardiology Dr. Jurado: 06/07/2021 Cardiology: 02/04/2020 Oncology: Dr Juanjo Mclaughlin 06/08/19 - pt h/o testicular CA 2007 - left orchiectomy Right Testicle US: 06/03/19 [...] mg/kg Committee Discussion Details: Pt brought to [facility] to discuss possible listing. -Reviewed [...] Pt has maintained monthly visits with Joan Cheney at [facility] in [place]. She is both a certified [facility] Drug and Alcohol substance abuse counselor as well as [facility] licensed counselor to manage suicide ideation. She [...] -Previously discussed insurance auth with Gabrielle and jamila to list. No concerns. Per team ok to list for kidney only. 12/26/2022 Committee Review Decision: Remove Committee Discussion Details: Pt was presented at [facility] to discuss positive drug screen. [...] mg/kg Committee Discussion Details: Pt brought to [facility] to discuss for possible listing. Reviewed PMH and current problem list. -Pt in evaluation for KP. PMH of CAD, diabetic retinopathy, and neuropathy. -Pt was a previous referral that required intervention s/p LHC. Stents x2. Completed DAPT. Reviewed DSE and NM stress completed with this eval. Team would like pt to have close follow up every 6 months with the manager solar. -Reviewed PMH of testicular cancer. Reviewed notes [...] estimated ejection fraction of 40% previously 43%. [facility]: 12/20/2022 Conclusion Patent stents in RCA [...] been documented. 12/19/2022 Alejandra Wellington MD Light, Tammy Kang RN; Dulce Geiger PA; Víctor Aguilera MD; [...] or text me on my cell phone [phone]. I appreciate the opportunity to participate in the care of your patient and look forward to being of service in the future as well. Sincerely, Alejandra Wellington MD, PhD, [facility]: 07/19/2019 ANGIOGRAPHY: i. Left main: short vessel that trifurcates into the LAD, LCx, and Ramus intermedius. ii. LAD: Long vessel that gives off a diagonal branch in the mid vessel after the first septal collective bargaining specialist before wrapping around the apex distally. The prxoimal LAD has diffuse luminal irregularities. There is a severe 60-70% focal stenosis after the second septal collective bargaining specialist. The LAD distal to this stenosis has [...] The rPDA and rPL fill distally via atus-ek-xzeyw collaterals. v. Ramus intermedius: small caliber vessel with diffuse luminal irregularities. DOMINANCE: Right DIAGNOSTIC INTERPRETATIONS: 1. Multivessel coronary artery disease. 2. FIRE EXTINGUISHER MECHANIC of the proximal RCA 3. Severe mid-LAD stenosis, ~60-70%. RECOMMENDATIONS AFTER DIAGNOSTIC CATHETERIZATION: Medical management of chronic CAD. Aspirin 81 mg QDAY indefinitely. High intensity statin therapy. Pt prescribed Metoprolol tartrate 12.5 mg PO BID before discharge from outpatient procedure. Aggressive modification of atherosclerotic risk factors. Heart team evaluation for revascularization via coronary artery bypass grafting vs multivessel PCI. C: 12/27/2019 LESION UNDERGOING INTERVENTION : PCI TO [...] mid LAD 2. Successful ARELI to RCA FIRE EXTINGUISHER MECHANIC 3. Impella used for renal protection (~125 [...] CONTRAST: 275 mL of Cystografin FINDINGS: A braider tender radiograph was unremarkable. A Brown catheter was [...] screen and SI. Has been going to [facility] every month-psych clearance sent Plan: make up worker to provide supportive services as needed. Patient appears to be a reasonable candidate for transplant from a psychosocial perspective. -Post transplant arrangement forms are needed prior to being listed. Psychiatric Consult Recommended: Yes related to:Substance Abuse Transplant Mobile Security Architect: Melinda Farfan LMSW Abdominal Transplant Mobile Security Architect [phone] Transplant Caregiver Confirmation Note Caregiver Confirmation Date Primary Name of Primary: Norman Hollins Relationship: Father - Confirmed during initial assessment Secondary Name of Secondary: Jennifer Hollins Relationship: Sister - Confirmed during initial assessment BARBARA French Jennifer K, RN Registered Nurse Specialty: Organ Pipe Voicer Telephone Encounter Signed Encounter Date: 06/25/2023 Received VM from Joan Wilosn at [facility]. She has release to discuss pt. [phone]. I called her back and LVM. She called me back. She verified she both a certified [facility] Drug and Alcohol susbtance abuse counselor as well as [facility] licensed counselor he is seeing for the [...] - Ropinirole Coronary artery disease invo lving redding coronary artery of redding heart with angina pectoris 12/27/2019 02/04/2020 Encounters Date Type Department Care Team Description 06/03/2025 Travel 06/02/2025 1:00 PM [facility] Hospital Encounter [facility] VASCULAR US [address] [place] [address] Dolores Edwards MD 05/31/2025 Telephone [facility] TRANSPLANT [address] [place] [address] Rubi Rey RN Kidney Transplant Follow-up 05/30/2025 Telephone [facility] - Nephrology [address] [place] [phone] Mallorie Guzman RN Kidney Transplant Follow-up 05/06/2025 Orders Only [facility] - Nephrology [address] [place] [phone] Mallorie Guzman RN Kidney transplant recipient (HCC) ; Type 1 diabetes mellitus with other specified complication (HCC); At risk for rejection of transplanted organ; Primary hypertension; Peripheral vascular disease; History of immunosuppression 05/05/2025 Results Follow-Up [facility] TRANSPLANT [address] [place] [phone] Uma Bennett RN 05/05/2025 Orders Only [facility] - Nephrology [address] [place] [phone] Mallorie Guzman RN 05/05/2025 Orders Only [facility] - Nephrology [address] [place] [phone] Mallorie Guzman RN Kidney transplant recipient (HCC); Type 1 diabetes mellitus with other specified complication (HCC); At risk for rejection of transplanted organ; Primary hypertension; Vitamin D deficiency 05/03/2025 Telephone [facility] - Nephrology [address] [place] [phone] Mallorie Guzman RN Kidney Transplant Follow-up 05/03/2025 Orders Only [facility] - Nephrology [address] [place] [phone] Mallorie Guzman RN Kidney transplant recipient (HCC) ; Type 1 diabetes mellitus with other specified complication (HCC); At risk for rejection of transplanted organ; Primary hypertension; Vitamin D deficiency 04/29/2025 9:38 AM CDT - 04/29/2025 11:59 PM CDT Hospital Encounter [facility] LAB OP DRAW STATION [address] [place] [phone] Tawanda Saavedra MD Discharge Disposition: Home or Self Care 04/29/2025 Travel 04/28/2025 Telephone [facility] - Nephrology [address] [place] [phone] Mallorie Guzman RN Kidney Transplant Follow-up 04/25/2025 Telephone [facility] - Nephrology [address] [place] [phone] Mallorie Guzman RN Kidney Transplant Follow-up 04/22/2025 Telephone [facility] - Nephrology [address] [place] [phone] Mallorie Guzman RN Kidney Transplant Follow-up 04/20/2025 10:45 AM CDT Office Visit [facility] - Vascular Surgery [address] [place] [phone] Dolores Edwards MD PAD (peripheral artery disease) (Primary Dx); H/O peripheral artery bypass 04/20/2025 9:10 AM CDT Office Visit [facility] - Nephrology [address] [place] [phone] Tawanda Saavedra MD Kidney transplant recipient (HCC) (Primary Dx); Type 1 diabetes mellitus with other specified complication (HCC); Neuropathy; Peripheral vascular disease; Essential hypertension 04/20/2025 Travel 04/19/2025 Telephone [facility] - Nephrology [address] [place] [address] Mallorie Guzman, ZEINAB Kidney Transplant Follow-up 2025 1:00 PM CDT - 2025 11:59 PM CDT Hospital Encounter [facility] VASCULAR US [address] [place] [address] Dolores Edwards MD Discharge Disposition: Home or Self Care 2025 Travel 04/07/2025 11:00 AM CDT - 04/07/2025 11:59 PM CDT Hospital Encounter [facility] VASCULAR US [address] [place] [phone] Dolores Edwards MD Discharge Disposition: Home or Self Care 04/07/2025 Travel 04/06/2025 9:45 AM CDT Office Visit [facility] - Vascular Surgery [address] [place] [phone] Dolores Edwards MD PAD (peripheral artery disease) (Primary Dx) 04/06/2025 9:00 AM CDT - 04/06/2025 11:59 PM CDT Hospital Encounter [facility] LAB OP DRAW STATION [address] [place] [phone] Discharge Disposition: Home or Self Care 04/06/2025 Telephone [facility] TRANSPLANT [address] [place] [phone] Uma Bennett RN Kidney Transplant Follow-up 04/06/2025 Travel 04/05/2025 Telephone [facility] TRANSPLANT [address] [place] [phone] Uma Bennett, RN Kidney Transplant Follow-up 04/05/2025 Travel 03/31/2025 Telephone [facility] TRANSPLANT [address] [place] [phone] Uma Bennett, RN Kidney Transplant Follow-up 03/29/2025 Refill [facility] TXP [place] CSM 3L [address] [facility], [place] [address] Alex Arias MD Refill Request 03/28/2025 Telephone [facility] - Vascular Surgery [address] [facility], [place] [address] Dolores dEwards MD Hospital Discharge 03/28/2025 Telephone [facility] TRANSPLANT [address] [place] [address] Uma Bennett RN Kidney Transplant Follow-up 03/23/2025 12:21 PM CDT Anesthesia Event [facility]IG[facility] OP [address] [place] [phone] Christiano Fung MD Keeven, Grace C, CODING EDUCATOR-RADIATION THERAPY TECHNICIAN 03/23/2025 11:20 AM CDT - 03/23/2025 2:55 PM CDT Surgery [facility] OP [address] [place] [phone] Dolores Edwards MD Revision of right leg femoral artery to popliteal artery bypass with polytetrafluoroethylene 03/22/2025 9:34 PM CDT - 03/27/2025 3:44 PM CDT Hospital Encounter [facility] 5S ACUTE [address] [place] [address] Jitendra Wilson MD Karches, Kyle Edward, MD Kraemer, Carl M, MD Chinnery, Akrin, MD Ferguson, Keith T, MD Ishiyama, Takaaki, MD Emergency Medicine Discharge Disposition: Home or Self Care 03/22/2025 Travel 03/22/2025 Telephone [facility] - Vascular Surgery [address] [facility] [address] Dolores Edwards MD 03/21/2025 Travel 03/18/2025 8:56 AM CDT Anesthesia Event [facility] OP [address] [place] [address] Monique Garcia MD Ibarra, [place], CAA 03/18/2025 7:00 AM CDT - 03/18/2025 9:19 AM CDT Surgery [facility] OP [address] [place] [address] Dolores Edwards MD Right leg diagnostic angiogram with CO2 and contrast, left sided access 03/18/2025 Orders Only [facility] - Vascular Surgery [address] [facility] [address] Annalisa Dailey RN Claudication in peripheral vascular disease ; Bypass graft stenosis, subsequent encounter 03/17/2025 6:55 PM CDT - 03/18/2025 3:30 PM CDT Hospital Encounter [facility] 6S ACUTE [address] [place] [address] Liu Perez III, MD Albrecht, Ryan, DO Vascular Surgery Discharge Disposition: Home or Self Care 03/17/2025 8:40 AM CDT - 03/17/2025 6:54 PM CDT Hospital Encounter [facility] LAB OP DRAW STATION [address] [place] [address] Aisha Medina, ASHLEY-RADIATION THERAPY TECHNICIAN Discharge Disposition: Home or Self Care 03/17/2025 Travel 03/16/2025 Telephone [facility] TRANSPLANT [address] [place] [address] Uma Bennett RN Kidney Transplant Follow-up 03/16/2025 Telephone [facility] - Vascular Surgery [address] [place] [phone] Dolores Edwards MD from Last 3 Months Immunizations Immunization Administration [...] and heating? Not hard at all 03/23/2025 [facility] of Occupat ional Health - Occupational Stress [...] place to sleep or slept in a fci (including now)? No 12/25/2022 Housing Stability Vital Sign Answer Robe e Recorded In the last 12 months, was t here a time when you were not able to pay the mortgage or rent on time? No 03/23/2025 In the past 12 months, how m any times have you moved where you were living? 0 03/23/2025 At any time in the past 12 m [facility], were you homeless or living in a fci (including now)? No 03/23/2025 Sex and Gender [...] st Contact Info) Description 07/13/2025 9:30 AM TAX PREPARER Office Visit [facility] - Nephrology [address] [facility], [place] [phone] 09/15/2025 3:40 PM CDT Office Visit [facility] - Endocrinology [facility] [place] [phone] Michael Arceo MD [address] [place] [address] [place] [address] Health Maintenance Due Date Last Done Comments [...] Santiago RN Medical Devices Implanted Type Area Payment Collector Device Identifier Shelf Expiration Date Model / Serial / Lot Graft Sft Tis 80cm 6mm Cryovein Sv Algrf - [id number] Implanted:Qty: 1 on 08/19/2024 by Dolores Edwards MD at [facility] Tissue Right: Arterial Cryolife [id number] 12/31/2033 V010 80CM / [id number] / Description:RIGHT FEMORAL-PO PLITEAL ARTERY BYPASS TRACK CORE # [id number] Sys Cor Stent Xience Srr 3.5mm 12mm Rap Implanted:Qty: 1 on 12/27/2019 by Jean-Paul Hoffmann MD at [facility] [employer] 08/25/2020 [id number] / [id number] Description:p RCA Sys Cor Stent Xience Srr 3mm 38mm Rap Ex Implanted:Qty: 1 on 12/27/2019 by eJan-Paul Hoffmann MD at [facility] [employer] 09/19/2020 [id number] Description:m RCA Sys Cor Stent Xience Srr 3.5mm 33mm Rap Implanted:Qty: 1 on 12/27/2019 by Jean-Paul Hoffmann MD at [facility] [employer] 07/18/2020 [id number] Description:m RCA Sys Cor Stent Xience Srr 3mm 23mm Rap Ex Implanted:Qty: 1 on 12/27/2019 by Jean-Paul Hoffmann MD at [facility] [employer] 09/26/2020 [id number] Description:m LAD Kit Durathane Drflw Embosafe Chrnc Dlys Implanted:Qty: 1 on 01/17/2022 by Nick Hernandez MD at [facility] Chest Wall [employer] 07/30/2024 [id number] / [id number] Stent Uret 5fr 12cm 2 Pgtl Crv 2 Drmtr Implanted:Qty: 1 on 06/13/2024 by Alex Arias MD at [facility] N/A: [employer] [place] 09/16/2026 [id number] Graft Vasc 6mm 50cm 40cm Hep Propaten - [id number] Implanted:Qty: 1 on 03/23/2025 by Dolores Edwards MD at [facility] Right: [employer] 12/19/2027 [id number] / [id number] / Procedures Procedure Name Priority Date/Time Associated Diagnosis Comments TACROLIMUS LEVEL Routine 04/29/2025 10:31 AM CDT Kidney transplant recipient ([facility]) Encounter for screening for viral disease Encounter [...] 04/29/2025 10:31 AM CDT Kidney transplant recipient ([facility]) Encounter for screening for viral disease Encounter [...] 04/29/2025 10:31 AM CDT Kidney transplant recipient ([facility]) Encounter for screening for viral disease Encounter [...] 04/29/2025 10:31 AM CDT Kidney transplant recipient ([facility]) Encounter for screening for viral disease Encounter [...] 04/29/2025 10:31 AM CDT Kidney transplant recipient ([facility]) Encounter for screening for viral disease Encounter [...] 04/29/2025 10:31 AM CDT Kidney transplant recipient ([facility]) Encounter for screening for viral disease Encounter [...] 04/29/2025 10:31 AM CDT Kidney transplant recipient ([facility]) Encounter for screening for viral disease Encounter [...] 04/29/2025 10:31 AM CDT Kidney transplant recipient ([facility]) Encounter for screening for viral disease Encounter [...] 04/29/2025 10:31 AM CDT Kidney transplant recipient ([facility]) Encounter for screening for viral disease Encounter [...] 04/29/2025 10:31 AM CDT Kidney transplant recipient ([facility]) Encounter for screening for viral disease Encounter [...] 04/29/2025 10:31 AM CDT Kidney transplant recipient ([facility]) Encounter for screening for viral disease Encounter [...] 04/29/2025 10:31 AM CDT Kidney transplant recipient ([facility]) Encounter for screening for viral disease Encounter [...] 04/29/2025 10:31 AM CDT Kidney transplant recipient ([facility]) Encounter for screening for viral disease Encounter [...] 04/29/2025 10:31 AM CDT Kidney transplant recipient ([facility]) Encounter for screening for viral disease Encounter [...] 04/06/2025 9:16 AM CDT Kidney transplant recipient ([facility]) Encounter for screening for viral disease Encounter [...] 04/06/2025 9:16 AM CDT Kidney transplant recipient ([facility]) Encounter for screening for viral disease Encounter [...] 04/06/2025 9:16 AM CDT Kidney transplant recipient ([facility]) Encounter for screening for viral disease Encounter [...] 04/06/2025 9:16 AM CDT Kidney transplant recipient ([facility]) Encounter for screening for viral disease Encounter [...] 04/06/2025 9:16 AM CDT Kidney transplant recipient ([facility]) Encounter for screening for viral disease Encounter [...] 04/06/2025 9:16 AM CDT Kidney transplant recipient ([facility]) Encounter for screening for viral disease Encounter [...] 04/06/2025 9:16 AM CDT Kidney transplant recipient ([facility]) Encounter for screening for viral disease Encounter [...] 3:47 PM CDT ACT LR - POCT ([facility]) Routine 03/23/2025 3:24 PM CDT GLUCOSE - POINT OF CARE Routine 03/23/2025 2:55 PM CDT ACT LR - POCT ([facility]) Routine 03/23/2025 2:51 PM CDT CENTRAL LINE NOTE Routine 03/23/2025 1:41 PM CDT ENDOTRACHEAL TUBE NOTE Routine 03/23/2025 1:27 PM CDT BLOOD GAS+COOX+LYTES+METAB VENOUS POCT Routine 03/23/2025 1:25 PM CDT NM BYPASS GRAFT OTHR,FEM-POP 03/23/2025 12:05 PM CDT [...] TUBE NOTE Routine 03/18/2025 9:31 AM CDT NM ILIAC REVASC W/STENT 03/18/2025 8:26 AM CDT Bypass graft stenosis, subsequent encounter PAD (peripheral artery disease) Case Notes admit date: 03/17/2025 to start IV hydration Special Needs angio ordered 03/01/25 [facility] GLUCOSE - POINT OF CARE Routine 03/18/2025 [...] 03/17/2025 9:00 AM CDT Kidney transplant recipient ([facility]) Encounter for screening for viral disease Encounter [...] 03/17/2025 9:00 AM CDT Kidney transplant recipient ([facility]) Encounter for screening for viral disease Encounter [...] 03/17/2025 9:00 AM CDT Kidney transplant recipient ([facility]) Encounter for screening for viral disease Encounter [...] 03/17/2025 9:00 AM CDT Kidney transplant recipient ([facility]) Encounter for screening for viral disease Encounter [...] 03/17/2025 9:00 AM CDT Kidney transplant recipient ([facility]) Encounter for screening for viral disease Encounter [...] 03/17/2025 9:00 AM CDT Kidney transplant recipient ([facility]) Encounter for screening for viral disease Encounter [...] 03/17/2025 9:00 AM CDT Kidney transplant recipient ([facility]) Encounter for screening for viral disease Encounter [...] 03/17/2025 9:00 AM CDT Kidney transplant recipient ([facility]) Encounter for screening for viral disease Encounter [...] 03/17/2025 9:00 AM CDT Kidney transplant recipient ([facility]) Encounter for screening for viral disease Encounter [...] 03/17/2025 9:00 AM CDT Kidney transplant recipient ([facility]) Encounter for screening for viral disease Encounter [...] CARDIAC EKG ORDER 03/08/2025 8:54 AM CDT PROTEIN CREATININE RATIO URINE RANDOM PNL Routine 08/13/2024 9:31 AM TAX PREPARER Type 1 diabetes mellitus with other specified complication Hypercholesteremia Primary hypertension Pre-transplant evaluation for kidney and pancreas transplant HEPATITIS C RNA QUANTITATIVE Routine 06/12/2024 4:21 AM TAX PREPARER Kidney transplant recipient HIV-1 HIV-2 ANTIBODY + HIV P24 AG PANEL Routine 06/12/2024 4:21 AM TAX PREPARER Kidney transplant recipient from Last 3 Months or Most Recently Relevant to Health Maintenance Results * CYTOMEGALOVIRUS (CMV) QUANTITATIVE PLASMA (04/29/2025 10:31 AM CDT) Only the most recent of2 resultswithin the time period is included. CMV Quant by PCR, Interp Not detected Not detected 04/30/2025 5:52 AM CDT [facility] CMV Quant by PCR, Log NA log IU/mL 04/30/2025 5:52 AM CDT [facility] Blood BLOOD SPECIMEN / Unknown Lab Venipuncture / Unknown 04/29/2025 10:31 AM CDT 04/29/2025 10:39 AM CDT Narrative [facility] - 04/30/2025 5:52 AM CDT [...] FDA approved test methodology Josee violeta CMV. us Tawanda Saavedra MD LAB - CHEMISTRY ORDERABLES F inal Result [facility] [address] [place] [address], [facility] [phone] * BK VIRUS QUANT PCR PLASMA STL (04/29/2025 10:31 AM CDT) Only the most recent of2 resultswithin the time period is included. BK Virus Quant by PCR, Interp Not detected Not detected 05/03/2025 5:07 AM [facility] Specimen Type Plasma 05/03/2025 5:07 AM [facility] BK Virus Quant by PCR, Log NA log IU/mL 05/03/2025 5:07 AM [facility] Blood BLOOD SPECIMEN / Unknown Lab Venipuncture / Unknown 04/29/2025 10:31 AM CDT 05/02/2025 9:29 AM [facility] Narrative [facility] - 05/03/2025 5:07 AM [facility] The BK viral (BKV) DNA analysis utilized [...] approved test methodology Josee violeta BKV . us Tawanda Saavedra MD LAB - CHEMISTRY ORDERABLES F inal Result [facility] [address] [place] [address], [facility] [phone] * (ABNORMAL) PTH INTACT W/O CALCIUM (04/29/2025 10:31 AM CDT) Only the most recent of2 resultswithin the time period is included. PTH Intact 188.8(H) 8.0 - 77.0 pg/mL 04/29/2025 11:12 AM CDT [facility] Blood BLOOD SPECIMEN / Unknown Lab Venipuncture / Unknown 04/29/2025 10:31 AM CDT 04/29/2025 10:42 AM CDT Tawanda Saavedra MD LAB - CHEMISTRY ORDERABLES F inal Result Performing Organization Address [facility] Co de Phone Number [address] [address], [facility] [phone] * URIC ACID BLOOD (04/29/2025 10:31 AM CDT) Only the most recent of2 resultswithin the time period is included. Uric Acid 6.1 3.5 - 7.2 mg/dL 04/29/2025 11:11 AM CDT [facility] Blood BLOOD SPECIMEN / Unknown Lab Venipuncture / Unknown 04/29/2025 10:31 AM CDT 04/29/2025 10:42 AM CDT Tawanda Saavedra MD LAB - CHEMISTRY ORDERABLES F inal Result Performing Organization Address [facility] Co de Phone Number [address] [address], [facility] [phone] * TACROLIMUS LEVEL (04/29/2025 10:31 AM CDT) Only the most recent of8 resultswithin the time period is included. Tacrolimus, trough 9.7 3.0 - 15.0 ng/mL 05/02/2025 3:13 PM TAX PREPARER [facility] Blood BLOOD SPECIMEN / Unknown Lab Venipuncture / Unknown 04/29/2025 10:31 AM CDT 05/02/2025 9:29 AM TAX PREPARER Narrative [facility] - 05/02/2025 3:13 PM TAX PREPARER Measurement performed by chemiluminescence immunoassay (CMIA) on the [employer] analyzer. Most individuals achieve optimal response with steady-state trough whole blood levels between 3-15 ng/mL. Preferred therapeutic values may vary by transplant type, protocol, and comedications. Therapeutic concentrations are based on trough values; blood drawn at other times may yield higher results. Tawanda Saavedra MD LAB - THERAPEUTIC DRUG MONIT ORING ORDERABLES Final Result Performing Organization Address City/[facility]/ZIP Co de Phone Number [address] [address], [facility] [phone] * (ABNORMAL) HEMOGLOBIN A1C (04/29/2025 10:31 AM CDT) Only the most recent of2 resultswithin the time period is included. Hemoglobin A1c 6.4(H) <=5.6 % 04/29/2025 1:06 PM CDT [facility] Estimated Average Glucose 137 mg/dL 04/29/2025 1:06 PM CDT [facility] Comment: HbA1c Interpretation: Normal : < 5.7% Pre-diabetes: 5.7-6.4% Diabetes: Equal to or greater than 6.5% Test results diagnostic of diabetes should be repeated for confirmation. Treatment target values recommended by ADA and other clinical organizations should be used to evaluate metabolic control in patients. Reference: [place] [employer] Association, Standards of Care in Diabetes [...] LAB - CHEMISTRY ORDERABLES F inal Result [address] [address], [place] [phone] * (ABNORMAL) VITAMIN D 25-HYDROXY (04/29/2025 10:31 AM CDT) Only the most recent of2 resultswithin the time period is included. Pathologist [facility] Vitamin D, 25 Hydroxy 21.9(L) 30.0 - 80.0 ng/mL 04/29/2025 11:28 AM CDT [facility] Comment: The recommendations for 25-Hydroxy Vitamin [...] LAB - CHEMISTRY ORDERABLES F inal Result [facility] [address] [place] [address], [facility] [phone] * (ABNORMAL) CBC W AUTO DIFFERENTIAL (04/29/2025 10:31 AM CDT) Only the most recent of3 resultswithin the time period is included. [facility] WBC 8.7 4.0 - 10.7 x10E9/L 05/02/2025 9:38 AM [facility] RBC Count 5.05 4.30 - 5.80 x10E12/L 05/02/2025 9:38 AM [facility] Hemoglobin 14.7 13.3 - 17.5 g/dL 05/02/2025 9:38 AM [facility] Hematocrit 47.7 38.7 - 51.1 % 05/02/2025 9:38 AM [facility] MCV 94.5 80.0 - 98.0 fL 05/02/2025 9:38 AM [facility] MCH 29.1 26.7 - 33.6 pg 05/02/2025 9:38 AM [facility] MCHC 30.8(L) 31.7 - 36.3 g/dL 05/02/2025 9:38 AM [facility] RDW-CV 14.0 11.3 - 14.8 % 05/02/2025 9:38 AM [facility] Platelet Count 237 150 - 420 x10E9/L 05/02/2025 9:38 AM [facility] MPV 12.5(H) 7.8 - 11.4 fL 05/02/2025 9:38 AM [facility] Neutrophil % 68.9 41.0 - 74.0 % 05/02/2025 9:38 AM [facility] Lymphocyte % 17.4 17.0 - 47.0 % 05/02/2025 9:38 AM [facility] Monocyte % 10.1 3.0 - 11.0 % 05/02/2025 9:38 AM [facility] Eosinophil % 1.8 0.0 - 7.0 % 05/02/2025 9:38 AM [facility] Basophil % 0.8 0.0 - 1.6 % 05/02/2025 9:38 AM [facility] Immature Granulocytes % 1.0 0.0 - 1.0 % 05/02/2025 9:38 AM [facility] Neutrophil Absolute 6.02 1.60 - 7.50 x10E9/L 05/02/2025 9:38 AM [facility] Lymphocyte Absolute 1.52 1.00 - 4.40 x10E9/L 05/02/2025 9:38 AM [facility] Monocyte Absolute 0.88 0.15 - 1.00 x10E9/L 05/02/2025 9:38 AM [facility] Eosinophil Absolute 0.16 0.00 - 0.60 x10E9/L 05/02/2025 9:38 AM [facility] Basophil Absolute 0.07 0.00 - 0.13 x10E9/L 05/02/2025 9:38 AM [facility] Blood BLOOD SPECIMEN / Unknown Lab Venipuncture / Unknown 04/29/2025 10:31 AM CDT 05/02/2025 9:28 AM [facility] us Fadee Abu Al Rub MD LAB - HEMATOLOGY ORDERABLES Final Result [facility] [address] [place] [address], [facility] [phone] * (ABNORMAL) COMPREHENSIVE METABOLIC PANEL (04/29/2025 10:31 AM CDT) Only the most recent of10 resultswithin the time period is included. BUN 21 7 - 26 mg/dL 05/02/2025 10:23 AM [facility] Creatinine 1.42(H) 0.71 - 1.16 mg/dL 05/02/2025 10:23 AM [facility] Sodium 143 136 - 145 mmol/L 05/02/2025 10:23 AM [facility] Potassium 4.4 3.5 - 4.5 mmol/L 05/02/2025 10:23 AM [facility] Chloride 105 98 - 107 mmol/L 05/02/2025 10:23 AM [facility] CO2 20(L) 22 - 29 mmol/L 05/02/2025 10:23 AM [facility] Glucose 96 70 - 99 mg/dL 05/02/2025 10:23 AM [facility] Calcium 9.1 8.4 - 10.2 mg/dL 05/02/2025 10:23 AM [facility] Protein Total 7.3 6.0 - 8.3 g/dL 05/02/2025 10:23 AM [facility] Albumin 4.8 3.4 - 5.0 g/dL 05/02/2025 10:23 AM [facility] Bilirubin Total 0.9 0.2 - 1.2 mg/dL 05/02/2025 10:23 AM [facility] Alkaline Phosphatase 78 40 - 150 U/L 05/02/2025 10:23 AM [facility] ALT 19 5 - 55 U/L 05/02/2025 10:23 AM [facility] AST 21 5 - 34 U/L 05/02/2025 10:23 AM [facility] Anion Gap 18(H) 6 - 16 05/02/2025 10:23 AM [facility] BUN/Creatinine Ratio 15 7 - 23 05/02/2025 10:23 AM [facility] Osmolality Calculated 299(H) 275 - 295 mOsm/kg 05/02/2025 10:23 AM [facility] Albumin/Globulin Ratio 1.9 1.1 - 2.3 05/02/2025 10:23 AM [facility] eGFR by CKD-EPI 63(L) >=90 mL/min/1.7 3 m2 05/02/2025 10:23 AM [facility] Comment:Estimated Glomerular Filtration Rate (eGFR) calculated using the CKD-EPI Creatinine Equation (2020), per the National Kidney Foundation and [place] [employer]ph[employer] recommendations. Blood BLOOD SPECIMEN / Unknown Lab Venipuncture / Unknown 04/29/2025 10:31 AM CDT 04/29/2025 10:42 AM CDT Tawanda Saavedra MD LAB - CHEMISTRY ORDERABLES F inal Result Performing Organization Address City/[facility]/ZIP Co de Phone Number [address] [address], [place] [phone] * PHOSPHORUS BLOOD (04/29/2025 10:31 AM CDT) Only the most recent of9 resultswithin the time period is included. Phosphorus 4.0 2.8 - 5.1 mg/dL 05/02/2025 10:00 AM [facility] Blood BLOOD SPECIMEN / Unknown Lab Venipuncture / Unknown 04/29/2025 10:31 AM CDT 04/29/2025 10:42 AM CDT Tawanda Saavedra MD LAB - CHEMISTRY ORDERABLES F inal Result [address] [address], [place] [phone] * HEPATIC FUNCTION PANEL (04/29/2025 10:31 AM CDT) Only the most recent of2 resultswithin the time period is included. Protein Total 7.4 6.0 - 8.3 g/dL 11:11 AM [facility] Albumin 4.8 3.4 - 5.0 g/dL 04/29/2025 11:11 AM [facility] Bilirubin Total 0.9 0.2 - 1.2 mg/dL 04/01 11:11 AM [facility] Bilirubin Conjugated 0.3 0.1 - 0.5 mg/dL 04/29/2025 11:11 AM [facility] Bilirubin Unconjugated 0.6 Unconjugated Bilirubin is a calculated value: Reference ranges have not been established. mg/dL 04/29/2025 11:11 AM [facility] Alkaline Phosphatase 81 40 - 150 U/L 04/29/2025 11:11 AM [facility] ALT 18 5 - 55 U/L 04/29/2025 11:11 AM [facility] AST 19 5 - 34 U/L 04/29/2025 11:11 AM [facility] Albumin/Globulin Ratio 1.8 1.1 - 2.3 04/29/2025 11:11 AM [facility] Blood BLOOD SPECIMEN / Unknown Lab Venipuncture / Unknown 04/29/2025 10:31 AM CDT 04/29/2025 10:42 AM CDT us Tawanda Saavedra MD LAB - CHEMISTRY ORDERABLES F inal Result [address] [address], [facility] [phone] * MAGNESIUM BLOOD (04/29/2025 10:31 AM CDT) Only the most recent of9 resultswithin the time period is included. Magnesium 1.7 1.6 - 2.6 mg/dL 05/02/2025 10:00 AM [facility] Blood BLOOD SPECIMEN / Unknown Lab Venipuncture / Unknown 04/29/2025 10:31 AM CDT 04/29/2025 10:42 AM CDT us Tawanda Saavedra MD LAB - CHEMISTRY ORDERABLES F inal Result Performing Organization Address City/[facility]/ZIP Co de Phone Number [address] [address], [facility] [phone] * (ABNORMAL) IRON + TRANSFERRIN PANEL (04/29/2025 10:31 AM CDT) Only the most recent of2 resultswithin the time period is included. Iron 41(L) 50 - 175 ug/dL 04/29/2025 11:11 AM CDT [facility] Transferrin 206 174 - 382 mg/dL 04/29/2025 11:11 AM CDT [facility] Transferrin Saturation % 16 16 - 50 % 04/29/2025 11:11 AM CDT [facility] TIBC Calculated 258 240 - 450 ug/dL 04/29/2025 11:11 AM CDT [facility] Blood BLOOD SPECIMEN / Unknown Lab Venipuncture / Unknown 04/29/2025 10:31 AM CDT 04/29/2025 10:39 AM CDT Tawanda Saavedra MD LAB - CHEMISTRY ORDERABLES F inal Result Performing Organization Address [facility] Co de Phone Number [address] [address], [place] [phone] * FERRITIN (04/29/2025 10:31 AM CDT) Only the most recent of2 resultswithin the time period is included. Ferritin 268 22 - 275 ng/mL 04/29/2025 11:29 AM CDT [facility] Blood BLOOD SPECIMEN / Unknown Lab Venipuncture / Unknown 04/29/2025 10:31 AM CDT 04/29/2025 10:39 AM CDT Tawanda Saavedra MD LAB - CHEMISTRY ORDERABLES F inal Result Performing Organization Address City/[facility]/ZIP Co de Phone Number [address] [address], [place] [phone] * (ABNORMAL) LIPID PROFILE (04/29/2025 10:31 AM CDT) Only the most recent of2 resultswithin the time period is included. Cholesterol Total 131 <200 mg/dL 04/29/2025 11:11 AM [facility] HDL 39(L) >40 mg/dL 04/29/2025 11:11 AM [facility] Comment: ATP III Classification of HDL Cholesterol: <40 mg/dL: Considered a major risk factor. >60 mg/dL: Considered a negative risk factor. LDL Calculated 62 <100 mg/dL 04/29/2025 11:11 AM [facility] Comment: ATP III Classification of LDL Cholesterol: <100 mg/dL: Optimal 100 - 129 mg/dL: Near Optimal/Above Optimal 130 - 159 mg/dL: Borderline High 160 - 189 mg/dL: High >190 mg/dL: Very High LDL is calculated using the Friedewald equation. Triglycerides 149 <150 mg/dL 04/29/2025 11:11 AM [facility] Comment: ATP III Classification of Triglycerides: <150 mg/dL: Normal 150 - 199 mg/dL: Borderline High 200 - 400 mg/dL: High >500 mg/dL: Very High Blood BLOOD SPECIMEN / Unknown Lab Venipuncture / Unknown 04/29/2025 10:31 AM CDT 04/29/2025 10:42 AM CDT us Tawanda Saavedra MD LAB - CHEMISTRY ORDERABLES F inal Result Performing Organization Address City/State/[facility] Co de Phone Number [facility] [address] [place] [address], [facility] [phone] * VAS Right Venous Duplex Le (2025 [...] 4.0 - 10.7 x10E9/L 03/27/2025 6:38 AM [facility] RBC Count 4.17(L) 4.30 - 5.80 x10E12/L 03/27/2025 6:38 AM [facility] Hemoglobin 12.2(L) 13.3 - 17.5 g/dL 03/27/2025 6:38 AM [facility] Hematocrit 35.7(L) 38.7 - 51.1 % 03/27/2025 6:38 AM [facility] MCV 85.6 80.0 - 98.0 fL 03/27/2025 6:38 AM [facility] MCH 29.3 26.7 - 33.6 pg 03/27/2025 6:38 AM [facility] MCHC 34.2 31.7 - 36.3 g/dL 03/27/2025 6:38 AM [facility] RDW-CV 13.2 11.3 - 14.8 % 03/27/2025 6:38 AM [facility] Platelet Count 243 150 - 420 x10E9/L 03/27/2025 6:38 AM [facility] MPV 11.2 7.8 - 11.4 fL 03/27/2025 6:38 AM CDT [facility] Blood BLOOD SPECIMEN / Unknown Lab Venipuncture / Unknown 03/27/2025 6:03 AM CDT 03/27/2025 6:24 AM CDT us Jitendra Wilson MD LAB - HEMATOLOGY ORDERABLES Final Result Performing Organization Address [facility]/ZIP Co de Phone Number [address] [address], [place] [phone] * (ABNORMAL) GLUCOSE - POINT OF CARE (03/26/2025 11:59 AM CDT) Only the most recent of33 resultswithin the time period is included. Glucose WB/POC 266(H) 70 - 99 mg/dL 03/26/2025 12:00 PM CDT [facility] Specimen Type Arterial/C apillary 03/26/2025 12:00 PM CDT [facility] Blood BLOOD SPECIMEN / Unknown 03/26/2025 11:59 AM CDT 03/26/2025 12:00 PM CDT us Octavio Lopez MD LAB - POINT OF CARE ORDERABL ES Final Result Performing Organization Address [facility] Co de Phone Number [address] [address], [place] [phone] * (ABNORMAL) BLOOD GASES INGRID + COOX PANEL (03/25/2025 3:30 PM CDT) pH Venous 7.36 7.32 - 7.42 pH 03/25/2025 3:39 PM CDT [facility] pO2 Venous 51(H) 35 - 40 mmHg 03/25/2025 3:39 PM CDT [facility] pCO2 Venous 55(H) 40 - 50 mmHg 03/25/2025 3:39 PM CDT [facility] HCO3 Venous 31.1(H) 20 - 30 mmol/L 03/25/2025 3:39 PM CDT [facility] Base Excess Venous 4.2(H) -2.0 - 2.0 mmol/L 03/25/2025 3:39 PM CDT [facility] Oxyhemoglobin Venous 84.5 % 03/01 3:39 PM CDT [facility] Deoxyhemoglobin (HHB) Venous % 13.1 % 03/25/2025 3:39 PM CDT [facility] Methemoglobin <0.8 0.0 - 2.0 % 03/25/2025 3:39 PM CDT [facility] Carboxyhemoglobin 1.9 0.0 - 2.0 % 2024 3:39 PM CDT [facility] O2 Content Venous 16.8 Interpret within clinical context ml/dL 03/25/2025 3:39 PM CDT [facility] Hemoglobin by COOX 14.2 12.0 - 17.6 g/dL 03/25/2025 3:39 PM CDT [facility] O2 Saturation Venous 87 >=70 % 03/01 3:39 PM T [facility] FI O2 Mixed Venous 34.0 % 2024 3:39 PM CDT [facility] Blood BLOOD SPECIMEN / Unknown Venipuncture / Unknown 03/25/2025 3:30 PM CDT 03/25/2025 3:33 PM CDT Narrative [facility] - 03/25/2025 3:39 PM CDT Carboxyhemoglobin Normal Concentration: Non-smokers: 0-2%; Smokers: 0-9%; Toxic: >20% us Jamal Hernandez MD LAB - BLOOD GASES ORDERABLES Final Result Performing Organization Address City/State/[facility] Co de Phone Number [facility] [address] [place] [address], [facility] [phone] * XR Chest 1Vw Portable (03/25/2025 2:56 [...] No growth [place] 03/26/2025 9:55 PM CDT [facility] MICROBIOLOGY Gram Stain No organisms seen 025 9:55 PM CDT [facility] MICROBIOLOG[facility] Gram Stain No polymorphonuclear cells 03/26/2025 9:55 PM CDT [facility] MICROBIOLOG[facility] Microbiology ENTIRE INGUINAL REGION / Unknown Collection / Unknown 03/23/2025 5:17 PM CDT 03/23/2025 5:17 PM CDT Dolores Edwards MD LAB - MICROBIOLOGY ORDERABL ES Final Result [facility] MICROBIOLOG[facility] [address] [place], [place] [address], [place] [phone] * CULTURE ANAEROBE (03/23/2025 5:07 PM CDT) Culture No anaerobic organisms isolated [place] 03/29/2025 3:13 PM CDT [facility] MICROBIOLOGY Microbiology ENTIRE INGUINAL REGION / Unknown Collection / Unknown 03/23/2025 5:07 PM CDT 03/23/2025 5:07 PM CDT Dolores Edwards MD LAB - MICROBIOLOGY ORDERABL ES Final Result Performing Organization Address City/[facility]/ZIP Co de Phone Number [facility] MICROBIOLOGY [address] [place] [address], [facility] [phone] * ACT LR - POCT ([facility]) (03/23/2025 3:24 PM CDT) Only the most recent of2 resultswithin the time period is included. Pathologist [facility] ACT LR 228 See result comments sec 03/23/2025 5:02 PM CDT [facility] Blood BLOOD SPECIMEN / Unknown 03/23/2025 3:24 PM CDT 03/23/2025 5:02 PM CDT Narrative [facility] - 03/23/2025 5:02 PM CDT ACT-LR Therapeutics ranges are: Cardiac supervisor laboratory = 200-300 seconds Sheath pull = ACT [...] LAB - COAGULATION ORDERABLES F inal Result [facility] [address] [place] [address], [place] [phone] * CENTRAL LINE PERFORMABLE (03/23/2025 1:41 PM CDT) Narrative [facility] CAA - 03/23/2025 1:41 PM CDT [facility] CAA 03/23/2025 1:41 PM Central Line Placement Procedure Note/LDA Insertion Time: 03/23/2025 12:59 PM Procedure: central line > 5yr ([id number]) Procedure Section: Indications: IV access and CVP [...] the procedure Provider #1: Christiano Fung MD. Christiano Fung MD GENERAL ANESTHESIA ORDERABLES F inal Result * ETT LINE PERFORMABLE (03/23/2025 1:27 PM CDT) Narrative [facility] CAA - 03/23/2025 1:27 PM CDT [facility] CAA 03/23/2025 1:33 PM Endotracheal Tube Placement: Patient Location: OR. Intubation Event Date/Time: 03/23/2025 12:33 PM Procedure: intubation ([id number]) Procedure Section: Sedation: under general anesthesia. Indications [...] 7.32 - 7.42 pH 03/23/2025 1:25 PM [facility] pO2 Venous 40 35 - 40 mmHg 03/23/2025 1:25 PM [facility] pCO2 Venous 47 40 - 50 mmHg 03/23/2025 1:25 PM [facility] HCO3 Venous 31.2(H) 20 - 30 mmol/L 03/23/2025 1:25 PM [facility] Base Excess Venous 5.8(H) -2.0 - 2.0 mmol/L 03/23/2025 1:25 PM [facility] Oxyhemoglobin Venous 74.4 % 03/01 1:25 PM [facility] Deoxyhemoglobin (HHB) Venous % 23.7 % 03/23/2025 1:25 PM [facility] Methemoglobin <0.8 0.0 - 2.0 % 03/23/2025 1:25 PM [facility] Carboxyhemoglobin 1.4 0.0 - 2.0 % 2024 1:25 PM [facility] Comment:Carboxyhemoglobin No rmal Concentration: Non-smokers: 0-2%; Smokers: 0- 9%; Toxic: >20% O2 Content Venous 15.2 Interpret within clinical context ml/dL 03/23/2025 1:25 PM [facility] Hemoglobin by COOX 14.6 12.0 - 17.6 g/dL 03/23/2025 1:25 PM [facility] O2 Saturation Venous 76 >=70 % 03/01 1:25 PM [facility] Sodium Whole Blood 135 135 - 145 mmol/L 03/23/2025 1:25 PM CDT [facility] Potassium Whole Blood 4.5 3.5 - 5.5 mmol/L 03/23/2025 1:25 PM T [facility] Chloride WB 99 78 - 107 mmol/L 03/23/2025 1:25 PM CDT [facility] Calcium Ionized 1.16 mmol/L 1:25 PM CDT [facility] Ionized Calcium pH Adjusted 1.17(L) 1.19 - 1.34 mmol/L 03/23/2025 1:25 PM [facility] Anion Gap (AG) Arterial 9 6 - 16 mmol/L 03/23/2025 1:25 PM T [facility] Glucose WB 197(H) 70 - 99 mg/dL 03/23/2025 1:25 PM T [facility] Lactic Acid Whole Blood 1.3 <=2.0 mmol/L 03/23/2025 1:25 PM [facility] Blood BLOOD SPECIMEN / Unknown 03/23/2025 1:25 PM CDT 03/23/2025 1:26 PM CDT us Guillermo Haile MD LAB - POINT OF CARE ORDERABLES Final Result [facility] [address] [place] [address], [facility] [phone] * EKG 12-LEAD (03/23/2025 10:22 AM CDT) Ventricular Rate 59 BPM [facility] MUSE Atrial Rate 59 BPM [facility] MUSE P-R Interval 150 ms [facility] MUSE QRS Duration ms 98 ms [facility] MUSE Q-T Interval ms 434 ms [facility] MUSE QTC Calculation (Bezet) 429 ms [facility] MUSE Calculated P Ollie 32 degrees [facility] MUSE Calculated T Ollie 25 degrees [facility] MUSE Interpretation EKG SINUS BRADYCARDIA INCOMPLETE RIGHT BUNDLE BRANCH BLOCK INFERIOR INFARCT (CITED 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-2024) ANTEROLATERAL INFARCT , AGE UNDETERMINED ABNORMAL ECG WHEN COMPARED WITH ECG OF 30-JUL-2024 18:10, ANTERIOR INFARCT IS NOW PRESENT ANTEROLATERAL INFARCT IS NOW PRESENT T WAVE AMPLITUDE HAS DECREASED IN ANTERIOR LEADS Confirmed by MD JUAN, DAWSON ([id number]) on 04/01/2025 9:41:22 AM [facility] MUSE 03/23/2025 10:2 2 AM CDT 04/01/2025 9:41 AM CDT us Jitendra Wilson MD ECG ORDERABLES Edited Resul t - Final [facility] MUSE * PREPARE (CROSSMATCH) RBC UNIT(S), 2 Units (03/22/2025 11:28 PM CDT) Unit Description AS1 LR PRBC [facility] BLOOD BANK LAB Unit ABO O [facility] BLOOD BANK LAB Unit Rh POS [facility] BLOOD BANK LAB Product Number R02 [facility] B LOOD BANK LAB Unit Donor # [id number] [facility] BLOOD BANK LAB Unit Status released [facility] BLOO D BANK LAB Product Code [id number] [facility] BLO OD BANK LAB Blood Type Barcode 5100 [facility] BLOOD BANK LAB Expiration Date S BLOOD BANK LAB Unit Description AS1 LR PRBC [facility] BLOOD BANK LAB Unit ABO O [facility] BLOOD BANK LAB Unit Rh POS [facility] BLOOD BANK LAB Product Number R02 [facility] B LOOD BANK LAB Unit Donor # [id number] [facility] BLOOD BANK LAB Unit Status released [facility] BLOO D BANK LAB Product Code [id number] [facility] BLO OD BANK LAB Blood Type Barcode 5100 [facility] BLOOD BANK LAB Expiration Date S BLOOD BANK LAB Blood Bank BLOOD SPECIMEN / Unknown 03/22/2025 11:28 PM CDT 03/23/2025 12:02 AM CDT us Jitendra Wilson MD LAB - BLOOD BANK ORDERABLES Final Result Performing Organization Address City/[facility]/ZIP Co de Phone Number [facility] BLOOD BANK LAB [address] [place] [address], [facility] [phone] * TYPE + SCREEN PANEL (03/22/2025 11:28 PM CDT) Only the most recent of2 resultswithin the time period is included. Antibody Screen NEG 12:52 AM CDT [facility] BLOOD BANK LAB ABO Rh O POS 03/23/2025 12:52 AM CDT [facility] BLOOD BANK LAB Blood Bank BLOOD SPECIMEN / Unknown Venipuncture / Unknown 03/22/2025 11:28 PM CDT 03/23/2025 12:02 AM CDT Jitendra Wilson MD LAB - BLOOD BANK ORDERABLES Final Result Performing Organization Address [facility] Co de Phone Number [facility] BLOOD BANK LAB [address] [place] [address], [place] [phone] * PT-INR (03/22/2025 9:07 PM CDT) PT 13.1 12.1 - 14.8 Seconds 03/22/2025 9:33 PM CDT [facility] INR 1.0 See Comment 03/22/2025 9:33 PM T [facility] Comment:The suggested therap eutic range for standard coumadin (warfarin) therapy is an INR of 2.0-3.0. For high-risk patients (Mechanical Mitral Valve Prosthesis, etc.), the suggested prophylactic therapeutic range is an INR of 2.5-3.5. Blood BLOOD SPECIMEN / Unknown Venipuncture / Unknown 03/22/2025 9:07 PM CDT 03/22/2025 9:10 PM CDT Result [facility] Evelyn Lugo CODING EDUCATOR-RADIATION THERAPY TECHNICIAN LAB - COAGULATION OR DERABLES Final Result Performing Organization Address [facility] Co de Phone Number [facility] [address] [place] [address], [place] [phone] * [place] Donnie W Angio Team (03/18/2025 10:00 AM CDT) Narrative [facility] RADIOLOGY - 03/18/2025 10:01 AM CDT Fluoroscopy was used for this exam in the OR. Please see the Operative report. Dolores Edwards MD FLUOROSCOPY ORDERABLES Filomena l Result Performing Organization Address City/[facility]/ZIP Co de Phone Number [facility] * Arterial Line Placement (03/18/2025 9:32 AM CDT) [place] [facility] - 03/18/2025 9:32 AM CDT [place] [facility] 03/18/2025 9:33 AM Arterial Line Placement Procedure Note Patient Location: OR. Insertion Time: 03/18/2025 9:14 AM Procedure: Arterial Line ([id number]) Procedure Section Indications: hypotension. Consent: informed consent [...] ETT LINE PERFORMABLE (03/18/2025 9:31 AM CDT) [place] [facility] - 03/18/2025 9:31 AM CDT [place] [facility] 03/18/2025 9:32 AM Endotracheal Tube Placement: Patient Location: OR. Intubation Event Date/Time: 03/18/2025 9:07 AM Procedure: intubation ([id number]) Procedure Section: Sedation: IV sedation. Indications for [...] 7 - 26 mg/dL 03/18/2025 5:59 AM [facility] Creatinine 1.43(H) 0.71 - 1.16 mg/dL 03/18/2025 5:59 AM [facility] Sodium 137 136 - 145 mmol/L 03/18/2025 5:59 AM [facility] Potassium 4.3 3.5 - 4.5 mmol/L 03/18/2025 5:59 AM [facility] Chloride 104 98 - 107 mmol/L 03/18/2025 5:59 AM [facility] CO2 23 22 - 29 mmol/L 03/18/2025 5:59 AM [facility] Glucose 346(H) 70 - 99 mg/dL 03/18/2025 5:59 AM [facility] Calcium 8.7 8.4 - 10.2 mg/dL 03/18/2025 5:59 AM [facility] Anion Gap 10 6 - 16 03/18/2025 5:59 AM [facility] BUN/Creatinine Ratio 22 7 - 23 03/18/2025 5:59 AM [facility] Osmolality Calculated 304(H) 275 - 295 mOsm/kg 03/18/2025 5:59 AM [facility] eGFR by CKD-EPI 63(L) >=90 mL/min/1.7 3 m2 03/18/2025 5:59 AM [facility] Comment:Estimated Glomerular Filtration Rate (eGFR) calculated using the CKD-EPI Creatinine Equation (2020), per the National Kidney Foundation and [place] [employer] Nephrology recommendations. Blood BLOOD SPECIMEN / Unknown Lab Venipuncture / Unknown 03/18/2025 4:41 AM CDT 03/18/2025 5:28 AM CDT us Liu Perez III, MD LAB - CHEMISTRY ORDERAB LES Final Result Performing Organization Address [facility]/State/ZIP Co de Phone Number [facility] [address] [place] [address], [facility] [phone] * (ABNORMAL) URINALYSIS COMPLETE W MICROSCOPIC (03/17/2025 9:00 AM CDT) Color UA Yellow Yellow, Straw 03/17/2025 9:43 AM [facility] Clarity UA Clear Clear 03/17/2025 9:43 AM [facility] Glucose UA 4+(A) Normal 03/17/2025 9:43 AM [facility] Bilirubin UA Negative Negative 03/17/2025 9:43 AM [facility] Ketone UA Negative Negative 03/17/2025 9:43 AM [facility] Specific [place] UA 1.017 1.005 - 1.030 03/17/2025 9:43 AM [facility] Blood UA Negative Negative 03/17/2025 9:43 AM [facility] pH UA 6.5 5.0 - 8.0 03/17/2025 9:43 AM [facility] Protein UA Negative Negative 03/17/2025 9:43 AM [facility] Urobilinogen UA Normal Normal mg/dL 025 9:43 AM [facility] Nitrite UA Negative Negative 03/17/2025 9:43 AM [facility] Leukocyte Esterase UA Negative Negative 03/17/2025 9:43 AM [facility] RBC UA 0-2 0 - 5 # /hpf 03/17/2025 9:43 AM [facility] WBC UA None Seen 0 - 5 # /hpf 03/17/2025 9:43 AM [facility] Bacteria UA None Seen None Seen 03/17/2025 9:43 AM [facility] Squamous Epithelial Cells None Seen 0 - 5 /hpf 03/17/2025 9:43 AM CDT [facility] Urine URINE SPECIMEN OBTAINED BY CLEAN CATCH PROCEDURE / Unknown Collection / Unknown 03/17/2025 9:00 AM CDT 03/17/2025 9:22 AM CDT Tawanda Saavedra MD LAB - URINALYSIS ORDERABLES Final Result Performing Organization Address City/[facility]/ZIP Co de Phone Number [facility] [address] [place] [address], [facility] [phone] * CYTOMEGALOVIRUS QUAL PCR (03/17/2025 9:00 AM CDT) Cytomegalovirus PCR Not Detected 03/20/2025 4:11 AM CDT [facility] ([facility]) Comment: NOT DETECTED - A negative result does not rule out the presence of PCR inhibitors in the patient specimen or assay specific nucleic acid in concentrations below the level of detection by the assay. INTERPRETIVE INFORMATION: Cytomegalovirus Detection by PCR This test was developed and its performance characteristics determined by [facility]. It has not been cleared or approved by the [place] Food and Drug Administration. This test was performed in a CLIA certified laboratory and is intended for clinical purposes. Performed By: [facility] [address] [place] [address] [employer] Section: Chris García MD, PhD CLIA Number: [id number] Cytomegalovirus Source Blood 03/20/2025 4:11 AM CDT [facility]) Microbiology BLOOD SPECIMEN / Unknown Collection / Unknown 03/17/2025 9:00 AM CDT 03/17/2025 9:24 AM CDT Tawanda Saavedra MD LAB - BODY FLUID ORDERABLES Final Result Performing Organization Address City/[facility]/ZIP Co de Phone Number [facility]) [address] [place] [address] * CULTURE URINE (03/17/2025 9:00 AM CDT) Culture Urine <10,000 CFU/mL urogenital lizzy [place] 03/18/2025 4:57 PM CDT [facility] MICROBIOLOG[facility] Urine URINE SPECIMEN OBTAINED BY CLEAN CATCH PROCEDURE / Unknown Collection / Unknown 03/17/2025 9:00 AM CDT 03/17/2025 9:22 AM CDT Tawanda Saavedra MD LAB - MICROBIOLOGY ORDERABLE S Final Result Performing Organization Address City/[facility]/ZIP Co de Phone Number [facility] MICROBIOLOG[facility] [address] [place] [address], [facility] [phone] * PROTEIN URINE RANDOM QUANTITATIVE (03/17/2025 9:00 AM CDT) Protein Urine <7 Not Established mg/dL 03/17/2025 10:13 AM CDT [facility] Urine URINE SPECIMEN OBTAINED BY CLEAN CATCH PROCEDURE / Unknown Collection / Unknown 03/17/2025 9:00 AM CDT 03/17/2025 9:22 AM CDT Tawanda Saavedra MD LAB - URINE CHEMISTRY ORDERA BLES Final Result Performing Organization Address [facility]/ZIP Co de Phone Number [address] [address], [facility] [phone] * CREATININE URINE RANDOM (03/17/2025 9:00 AM CDT) Creatinine Urine 83.26 Not Established mg/dL 03/17/2025 10:13 AM CDT [facility] Urine URINE SPECIMEN OBTAINED BY CLEAN CATCH PROCEDURE / Unknown Collection / Unknown 03/17/2025 9:00 AM CDT 03/17/2025 9:22 AM CDT Tawanda Saavedra MD LAB - URINE CHEMISTRY ORDERA BLES Final Result Performing Organization Address [facility]/ZIP Co de Phone Number [address] [address], [facility] [phone] * CARDIAC EKG ORDER (03/08/2025 8:54 AM CDT) Narrative 03/08/2025 8:54 AM CDT Ordered by an unspecified provider. Scanned Document CARDIAC SERVICES ORDERABLES Fin al Result * (ABNORMAL) PROTEIN CREATININE RATIO URINE RANDOM PNL (08/13/2024 9:31 AM TAX PREPARER) [facility] Protein Urine 7 Not Established mg/dL 08/13/2024 10:52 AM [facility] Creatinine Urine 67.22 Not Established mg/dL 08/13/2024 10:52 AM [facility] Protein/Creati nine Ratio Urine 0.10(H) <0.10 08/13/2024 10:52 AM [facility] Urine URINE SPECIMEN OBTAINED BY CLEAN CATCH PROCEDURE / Unknown Collection / Unknown 08/13/2024 9:31 AM TAX PREPARER 08/13/2024 10:04 AM TAX PREPARER Result [facility] Alex Arias MD LAB - URINE CHEMISTRY ORDERABLES Final Result Performing Organization Address City/[facility]/ZIP Co de Phone Number [address] [address], [place] [phone] * HIV-1 HIV-2 ANTIBODY + HIV P24 AG PANEL (06/12/2024 4:21 AM TAX PREPARER) [facility] HIV Antigen/Antibod y 1 & 2 Non-reacti ve Non-react luana 06/12/2024 5:59 AM TAX PREPARER [facility] Comment:No Laboratory eviden ce of HIV infection. Blood BLOOD SPECIMEN / Unknown Venipuncture / Unknown 06/12/2024 4:21 AM TAX PREPARER 06/12/2024 4:47 AM TAX PREPARER Alex Arias MD LAB - CHEMISTRY ORDERA BLES Final Result [address] [address], [place] [phone] * HEPATITIS C RNA QUANTITATIVE (06/12/2024 4:21 AM TAX PREPARER) [facility] Hepatitis C RNA PCR, Interp Not detected Not detected 06/14/2024 10:31 AM [facility] Blood BLOOD SPECIMEN / Unknown Venipuncture / Unknown 06/12/2024 4:21 AM TAX PREPARER 06/12/2024 4:47 AM TAX PREPARER Narrative [facility] - 06/14/2024 10:31 AM TAX PREPARER The Hepatitis C viral (HCV) RNA analysis utilized a serum sample, real-time reverse bar and filler assembler PCR, and is reported as Not Detected, [...] the isolation of HCV RNA with reverse bar and filler assembler of genomic HCV RNA followed by real-time PCR in the presence of an unrelated RNA internal control. The internal control ensures that RNA is isolated, and that no general significant inhibitors of the RT-PCR process are present. The analysis was performed using a U.S. FDA approved test methodology Josee violeta HCV. Alex Arias MD LAB - CHEMISTRY ORDERA [facility] Final Result [facility] [address] [place], [place] [address], [facility] [phone] from Last 3 Months or Most Recently Relevant to Health Maintenance Insurance [employer] [place] [address] Advance Directives * Full Code (Latest Code [...] 9:27 PM 07/31/2024 12:30 PM Care Teams Culinary Assistant Relationship Specialty Start Date End Date Aisha Medina APRN-RADIATION THERAPY TECHNICIAN PCP - General Nurse Practitioner 03/12/19 Rita Lynne MD 03/02/19 Martha Worrell MD Nephrology 03/12/19
--- OUTSIDE RECORDS SUMMARY | 2025-06-03 15:58 | XMS_ITS | Clinical Summary ---
Author Organization [facility] Address [address] [place] [address] Phone Care Team Providers Care Wastewater Treatment Plant Operator Name Role Phone Ariel Lua Nikhil DPM Unavailable [phone] Aisha Medina APRN, LIGHTING FIXTURE INSTALLER Primary Care Prov ider Juanjo Mclaughlin MD [...] DAILY Active Insulin Disposable Pump (Omnipod 5 [id number] Intro Gen 5) Kit CHANGE PODS EVERY [...] mL Active Insulin Disposable Pump (Omnipod 5 NobR5P2 Pods Gen 5) Misc Every 3 days [...] [facility] Date: 06/13/2025 Donor: [facility] ID: [id number] Match ID: [id number] Criteria: DBD KDPI: 25 CMV D+/R- EBV [...] Non-Reactive for HBV DNA Test performed with Pixalate Ultrio Elite Assay Kit. Acute foot pain, [...] 05/24/2025 Refill [facility] [address] [place] [address] Aisha Medina APRN, CNP Medication Refill 04/04/2025 Refill [facility] [address] [place] [address] Aihsa Medina APRN, KASSI Medication Refill from Last 3 Months Immunizations Immunization Administration Dates Next Due Covid-19, Mrna, Lnp-s, Pf, 3 0 Mcg/0.3 Ml Dose ([employer]) 06/09/2021,09/18/2020,08/28/2020 Hepatitis A Vaccine 05/12/2019 Hepatitis A [...] st Contact Info) Description 06/16/2025 7:45 AM STRATEGIC ACCOUNT EXECUTIVE Office Visit [facility] Medical [facility] - Family Medicine [facility] [address] [place] [address] Aisha Medina APRN, LIGHTING FIXTURE INSTALLER [address] [facility] [address] [place] [address] 07/06/2025 2:30 PM STRATEGIC ACCOUNT EXECUTIVE Office Visit [facility] Endocrinology [facility] [address] [place] [address] Rita Lynne MD [address] [facility] [address] [place] [address] Health Maintenance Due Date Last Done Comments [...] POCT GLYCOSYLATED HEMOGLOBIN Routine 08/10/2024 10:37 AM STRATEGIC ACCOUNT EXECUTIVE Type 1 diabetes mellitus with nephropathy (HCC) CMP (COMPREHENSIVE METABOLIC PANEL) 12/04/2021 12:00 AM CDT from Last 3 Months or Most Recently Relevant to Health Maintenance Results * DILATED EYE EXAM (03/15/2025 12:00 AM CDT) 03/15/2025 us Provider Scan PROCEDURE/MINOR SURGICAL ORDERAB LES Final Result SCAN * (ABNORMAL) POCT GLYCOSYLATED HEMOGLOBIN (08/10/2024 10:37 AM STRATEGIC ACCOUNT EXECUTIVE) HGB-A1C 7.7(A) 4 - 6 % Blood 08/10/2024 10:3 7 AM STRATEGIC ACCOUNT EXECUTIVE us Rita Lynne MD POINT OF CARE TESTING (MANUAL) F inal Result * CMP (COMPREHENSIVE METABOLIC PANEL) (12/04/2021 12:00 AM CDT) 12/04/2021 us Not On File Provider CHEMISTRY ORDERABLES Final Result SCAN from Last 3 Months or Most Recently Relevant to Health Maintenance Insurance MEDICAID [place] MEDICARE C [facility] Care Teams Wastewater Treatment Plant Operator Relationship Specialty Start Date End Date Aisha Medina APRN, LIGHTING FIXTURE INSTALLER [address] [facility] [address] [place] [phone] PCP - General Advanced Practice Nurse 07/17/18 Ariel Lua DPM Consulting Physician Podiatry 12/02/16 Juanjo Mclaughlin MD [address] [place] [id number] Consulting Physician Oncology 12/01/19 Rita Lynne MD [address] [facility] [address] [place] [phone] Consulting Physician Endocrinology 10/17/22
--- OUTSIDE RECORDS SUMMARY | 2025-06-03 15:58 | XMS_ITS | Encounter Summary ---
Author Organization [facility] Address [address] [place] [address] Phone Care Team Providers Care Border Police Name Role Phone Ariel Lua Nikhil DPM Unavailable [phone] Aisha Medina APRN, MEDICAL ASSISTANT Primary Care Prov ider Juanjo Mclaughlin MD Unavailable Rita Lynne MD Unavailable Meron Gurrola RN Unavailable Unavailable Meron Gurrola RN Unavailable Unavailable Reason for Visit * Reason Comments Medication Refill Encounter Details Date Type Department Care Team (Late st Contact Info) Description 04/03/2023 [facility]ill [facility] Medicine [facility] #2 [place] [address] Aisha Medina APRN, MEDICAL ASSISTANT #[address] [address] Medication Refill Social History [...] st Contact Info) Description 06/16/2025 7:45 AM GLASS RIBBON MACHINE OPERATOR ASSISTANT Office Visit [facility] - Family Medicine [facility] #2 [place] [phone] Aisha Medina, KETTLE COOK, MEDICAL ASSISTANT #2 [facility] [address] [place] [phone] 07/06/2025 2:30 PM GLASS RIBBON MACHINE OPERATOR ASSISTANT Office Visit [facility] - Endocrinology [facility] #2 [place] [phone] Rita Lynne MD #2 [facility] [address] [place] [address] documented as of this encounter Visit Diagnoses [...] documented as of this encounter Care Teams Border Police Relationship Specialty Start Date End Date Aisha Medina APRN, MEDICAL ASSISTANT #2 [facility] [address] [place] [address] PCP - General Advanced Practice Nurse 07/17/18 Ariel Lua DPM Consulting Physician Podiatry 12/02/16 Juanjo Mclaughlin MD [address] [place] [address] Consulting Physician Oncology 12/01/19 Rita Lynne MD #2 [facility] [address] [place] [phone] Consulting Physician Endocrinology 10/17/22 Meron Gurrola RN [place] Nurse Manager Ems 01/09/24 01/15/24 Meron Gurrola RN [place] Nurse Manager Ems 11/26/24 12/08/24 documented as of this encounter
--- OUTSIDE RECORDS SUMMARY | 2025-06-03 15:58 | XMS_ITS | Encounter Summary ---
Author Organization [facility] Address [address] [place] [address] Phone Care Team Providers Care Clinical Research Spec Name Role Phone Ariel Lua Nikhil DPM Unavailable [phone] Aisha Medina APRN, PSYCHOPAEDIC NURSE Primary Care Prov ider Juanjo Mclaughlin MD Unavailable Rita Lynne MD Unavailable Meron Gurrola RN Unavailable Unavailable Meron Gurrola RN Unavailable Unavailable Reason for Visit * Reason Comments Medication Refill Encounter Details Date Type Department Care Team (Late st Contact Info) Description 11/21/2020 Refill [facility] #2 [place] [address] Rita Lynne MD #[address] [address] Medication Refill Social History Tobacco [...] st Contact Info) Description 06/16/2025 7:45 AM METAL BUMPER Office Visit [facility] - Family Medicine [facility] #2 [place] [phone] Aisha Medina APRN, PSYCHOPAEDIC NURSE #[address] [phone] 07/06/2025 2:30 PM METAL BUMPER Office Visit [facility] - Endocrinology - [place] #2 [place] [address] Rita Lynne MD #[address] [address] documented as of this encounter Visit Diagnoses Not on filedocumented in this encounter Additional Health Concerns Assessment Noted Time PHQ-9 Depression Total Score: 0 07/01/19 20 11:36 AM METAL BUMPER documented as of this encounter Care Teams Clinical Research Spec Relationship Specialty Start Date End Date Aisha Medina APRN, PSYCHOPAEDIC NURSE #[address] [phone] PCP - General Advanced Practice Nurse 07/17/18 Ariel Lua DPM Consulting Physician Podiatry 12/02/16 Juanjo Mclaughlin MD [address] [place] [address] Consulting Physician Oncology 12/01/19 Rita Lynne MD #[address] [address] Consulting Physician Endocrinology 10/17/22 Meron Gurrola, RN [place] Nurse Typists Supervisor 01/09/24 01/15/24 Meron Gurrola, ZEINAB [place] Nurse Typists Supervisor 11/26/24 12/08/24 documented as of this encounter
--- OUTSIDE RECORDS SUMMARY | 2025-06-03 15:58 | XMS_ITS | Encounter Summary ---
Author Organization [facility] Address [address] [place] [address] Phone Care Team Providers Care Data Acquisition Technician Name Role Phone Ariel Lua Nikhil DPM Unavailable [phone] Aisha Medina APRN, MANAGER [employer] Primary Care Prov ider Juanjo Mclaughlin MD Unavailable Rita Lynne MD Unavailable Meron Gurrola RN Unavailable Unavailable Meron Gurrola RN Unavailable Unavailable Reason for Visit * Reason Comments Medication Refill Encounter Details Date Type Department Care Team (Late st Contact Info) Description 11/20/2020 Refill [facility] Endocr[facility] #2 [place] [address] Rita Lynne MD #[address] [address] Medication Refill Social History Tobacco [...] st Contact Info) Description 06/16/2025 7:45 AM LEATHER GOODS II ASSEMBLER Office Visit [facility] Medical [facility] - Family Medicine - [place] #2 [place] [phone] Aisha Medina APRN, MANAGER [employer] #[address] [phone] 07/06/2025 2:30 PM LEATHER GOODS II ASSEMBLER Office Visit [facility] - Endocrinology - [place] #2 [place] [phone] Rita Lynne MD #[address] [phone] documented as of this encounter Visit Diagnoses Not on filedocumented in this encounter Additional Health Concerns Assessment Noted Time PHQ-9 Depression Total Score: 0 07/01/19 20 11:36 AM LEATHER GOODS II ASSEMBLER documented as of this encounter Care Teams Data Acquisition Technician Relationship Specialty Start Date End Date Aisha Medina APRN, MANAGER [employer] #[address] [phone] PCP - General Advanced Practice Nurse 07/17/18 Ariel Lua DPM Consulting Physician Podiatry 12/02/16 Juanjo Mclaughlin MD [address] [place] [address] Consulting Physician Oncology 12/01/19 Rita Lynne MD #[address] [address] Consulting Physician Endocrinology 10/17/22 Meron Gurrola, ZEINAB [place] Nurse Medical Accountant 01/09/24 01/15/24 Meron Gurrola, RN [place] Nurse Medical Accountant 11/26/24 12/08/24 documented as of this encounter
--- OUTSIDE RECORDS SUMMARY | 2025-06-03 15:58 | XMS_ITS | Encounter Summary ---
Author Organization [facility] Address [address] [place] [address] Phone Care Team Providers Care Hog Scalder Name Role Phone Ariel Lua Nikhil DPM Unavailable [phone] Aisha Medina APRN, FOUNDRY HELPER Primary Care Prov ider Juanjo Mclaughlin MD Unavailable Rita Lynne MD Unavailable Meron Gurrola RN Unavailable Unavailable Meron Gurrola RN Unavailable Unavailable Reason for Visit * Reason Comments Medication Refill Encounter Details Date Type Department Care Team (Late st Contact Info) Description 11/07/2020 Refill [facility] #2 [place] [address] Rita Lynne MD #[address] [address] Medication Refill Social History Tobacco [...] st Contact Info) Description 06/16/2025 7:45 AM HEEL SEAT FITTER Office Visit [facility] Medical [facility] - Family Medicine - [place] #2 [place] [address] Aisha Medina APRN, FOUNDRY HELPER #[address] [address] 07/06/2025 2:30 PM HEEL SEAT FITTER Office Visit [facility] - Endocrinology - [place] #[address] [place] [phone] Rita Lynne MD #[address] [address] documented as of this encounter Visit Diagnoses Not on filedocumented in this encounter Additional Health Concerns Assessment Noted Time PHQ-9 Depression Total Score: 0 07/01/19 20 11:36 AM HEEL SEAT FITTER documented as of this encounter Care Teams Hog Scalder Relationship Specialty Start Date End Date Aisha Medina APRN, FOUNDRY HELPER #[address] [phone] PCP - General Advanced Practice Nurse 07/17/18 Ariel Lua DPM Consulting Physician Podiatry 12/02/16 Juanjo Mclaughlin MD [address] [place] [address] Consulting Physician Oncology 12/01/19 Rita Lynne MD #[address] [address] Consulting Physician Endocrinology 10/17/22 Meron Gurrola, ZEINAB [place] Nurse Pinion Polisher 01/09/24 01/15/24 Meron Gurrola RN [place] Nurse Pinion Polisher 11/26/24 12/08/24 documented as of this encounter
--- OUTSIDE RECORDS SUMMARY | 2025-06-03 15:58 | XMS_ITS | Encounter Summary ---
Author Organization [facility] Address [address] [place] [address] Phone Care Team Providers Care Hand Coke Drawer Name Role Phone Ariel Lua DPM Unavailable [phone] Aisha Medina APRN, MAIL TELLER Primary Care Prov ider Juanjo Mclaughlin MD Unavailable Rita Lynne MD Unavailable Meron Gurrola RN Unavailable Unavailable Meron Gurrola RN Unavailable Unavailable Reason for Visit * Reason Comments Medication Refill Encounter Details Date Type Department Care Team (Late st Contact Info) Description 08/01/2020 Refill [facility] [address] [place] [address] Aisha Medina APRN, MAIL TELLER #[address] [address] Medication Refill Social History [...] for med refill request approval per PCP. L INSPECTOR documented in this encounter Plan of Treatment Upcoming Encounters Date Type Department Care Team (Late st Contact Info) Description 06/16/2025 7:45 AM METAL INSPECTOR Office Visit [facility] - Family Medicine [facility] #2 [place] [address] Aisha Medina APRN, MAIL TELLER #[address] [phone] 07/06/2025 2:30 PM METAL INSPECTOR Office Visit [facility] Endocrinology [facility] #2 [place] [address] Rita Lynne MD #[address] [address] documented as of this encounter Visit Diagnoses Diagnosis Hypertension, unspecified type Hyperlipidemia, unspecified hyperlipidemia type documented in this encounter Additional Health Concerns Assessment Noted Time PHQ-9 Depression Total Score: 0 07/01/19 20 11:36 AM METAL INSPECTOR documented as of this encounter Care Teams Hand Coke Drawer Relationship Specialty Start Date End Date Aisha Medina APRN, MAIL TELLER #[address] [address] PCP - General Advanced Practice Nurse 07/17/18 Ariel Lua DPM Consulting Physician Podiatry 12/02/16 Juanjo Mclaughlin MD [address] [place] [address] [place] [address] Consulting Physician Oncology 12/01/19 Rita Lynne MD #[address] [address] Consulting Physician Endocrinology 10/17/22 Meron Gurrola, ZEINAB [place] Nurse Meter Tester Polyphase 01/09/24 01/15/24 Meron Gurrola, ZEINAB [place] Nurse Meter Tester Polyphase 11/26/24 12/08/24 documented as of this encounter
--- OUTSIDE RECORDS SUMMARY | 2025-06-03 15:58 | XMS_ITS | Clinical Summary ---
Author Organization [facility] Address [address] [place] [address] Care Team Providers Care Ladies Underwear Operator Name Role Phone Aisha Medina NP Primary Care Provider + Allergies No known active allergies Medications atorvastatin (LIPITOR) 40 mg tabletIndications:hyp erlipidemia Take 1 tablet (40 mg total) by mouth wood drill operator before breakfast 2 03/25/20 17 Active amLODIPine (NORVASC) 10 mg tabletIndications:hyp ertension Take 1 tablet (10 mg total) by mouth wood drill operator before breakfast Active aspirin 81 mg enteric coated tabletIndications:pre vention of thrombosis Take 1 tablet (81 mg total) by mouth wood drill operator before breakfast Active metoprolol (LOPRESSOR) 25 [...] (02/28/2022): Added automatically from request for surgery [id number] 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 Previous wine manager Dr. Rod is leaving areas our [...] type 1 diabetic I recommended he see maintenance trainer and referral will be made. Date she does have sufficient amount insulin at this time. He stated after some chronic renal problems sought maintenance trainer 1-[address] Rivera[address] No further details on this is known to me. He also has poor vision left by this secondary to trauma to the left eye. Will seeing outside sales advertising executive for this particular problem. Immunizations Immunization Administration [...] oz pur e alcohol) less than 1x/month [facility] Utilities Answer Date Recorded In the past 12 months has Log[employer], gas, oil, or water Seel[employer] threatened to shut off services in your home? No 04/18/2023 Social Connection and Isolation Panel Answer Date Recorded In a typical week, how many times do you talk on the phone with family, friends, or neighbors? More than three times a week 04/18/2023 How often do you get togethe r with friends or relatives? Twice a week 04/18/2023 How often do you attend [facility] or quaker services? Never 04/18/2023 Do you belong to any clubs o r organizations such as pentecostalism groups, unions, fraternal or athletic groups, or [...] slept in a fci (including now)? No 04/18/2023 Personal Safety Answer [...] on file Legal Sex Male 11:58 PM BRUSH CLEARING LABORER Gender Identity Not on file Sexual Orientation [...] Completed 04/18/2023 Medical Devices Implanted Type Area Monotype Caster Device Identifier Shelf Expiration Date Model / Serial / Lot Stents N/A: Heart [employer] Jourdan Curl Cath 62cm 2 Cuff Kit Peritoneum Catheter Dialysis [id number] - [id number] Implanted:Qty : 1 on 03/28/2022 by Rhona Concepcion MD at [facility] N/A: Abdomen [employer] [id number] 08/27/2026 [id number] / / [id number] Procedures Procedure Name Priority Date/Time Associated Diagnosis [...] Final Re sult KAILEE MCKINNEY ([place]) 1 [facility] Department [place] [address] * Hepatitis panel, acute Blood (04/18/2023 5:26 PM CDT) Hep A IgM Nonreactive Nonreactive Comment: Interpretive Data: If Hep A IgM Ab is reported as Equivocal, a new sample should be drawn in two weeks for testing. Current interpretive data was last revised on 19. Testing performed by: , [address] [place] [address]., [address] Hep B core IgM Nonreactive Nonreactive Trupti MCKINNEY ([place]) Comment: Interpretive Data If HepB Core IgM Ab is reported as Equivocal, a new sample should be drawn in two weeks for testing. Current interpretive data was last revised on 19. Testing performed by: , [address] [place] [address]., [address] Hep C Ab Nonreactive Nonreactive KAILEE MCKINNEY [...] last revised on 2019. Testing performed by: [address] [address] HepBsAg Nonreactive Nonreactive KAILEE MCKINNEY ([place]) Comment:Testing performed by : [address] [address] Blood 04/18/2023 5:26 PM CDT 04/18/2023 6:58 PM CDT us Chip Rivera MD LAB MICROBIOLOGY - GENERAL OR DERABLES Final Result KAILEE MCKINNEY ([place]) 1 [facility] Department [place] [address] * (ABNORMAL) Hemoglobin A1c (02/12/2018 12:13 PM [...] Agency Comment Performing Organization Information: Site ID: [id number] Name: [facility] Address: [address] [place] [id number] Director: Guille Logan D.O., MPH us Guille Zavala MD LAB BLOOD ORDERABLES Final Result Performing Organization Address [facility]/ZIP Co de Phone Number [facility] [place] * (ABNORMAL) Lipid panel (02/12/2018 12:13 PM [...] LDL-C. Omero MORTON et al. FRANCIE. 2013;310(19): 4014-5031 (http://education.Ryla.Social DJ/faq/YZD856) Chol/HDL ratio 8.0(H) <5.0 (calc) [facility] [...] Performing Organization Information: Site ID: [id number] Name: [facility] Address: [address] [place] [address] [place] [address] Director: Guille Logan D.O., MPH Guille Zavala MD LAB BLOOD ORDERABLES Final Result [facility] [place] Wallace from Last 3 Months or Most Recently Relevant to Health Maintenance Insurance [facility] MEDICARE MEDICARE IDVT Advance Directives For more information, please contact: [phone] * Full Code (Latest Code Status on File) Date Activated Date Inactivated Comments 04/17/2023 3:14 PM 04/19/2023 5:23 PM Care Teams Ladies Underwear Operator Relationship Specialty Start Date End Date Aisha Medina NP [address] [facility] [address] PCP - General 06/03/19
--- OUTSIDE RECORDS SUMMARY | 2025-06-03 15:59 | XMS_ITS | Encounter Summary ---
Author Organization [facility] Address [address] [place] [address] Phone Care Team Providers Care Casting Machine Control Board Operator Name Role Phone Ariel Lua Nikhil DPM Unavailable [phone] Aisha Medina APRN, RETAIL HELPER Primary Care Prov ider Juanjo Mclaughlin MD Unavailable Rita Lynne MD Unavailable Meron Gurrola RN Unavailable Unavailable Meron Gurrola RN Unavailable Unavailable Reason for Visit * Reason Comments Medication Refill Encounter Details Date Type Department Care Team (Late st Contact Info) Description 09/02/2021 Refill [facility] - Family Medicine [facility] #2 [place] [address] Aisha Medina APRN, RETAIL HELPER #[address] [address] Medication Refill Social History Tobacco [...] 03/01/21 Office Visit Aisha Medina APRN, [facility] Showing recent visits within past [...] 03/01/21 Office Visit Aisha Medina APRN, [facility] Showing recent visits within past 365 days and meeting all other requirements Future Appointments No visits were found meeting these conditions. Showing future appointments within next 90 days and meeting all other requirements OMER SPECIALIST documented in this encounter Plan of Treatment Upcoming Encounters Date Type Department Care Team (Late st Contact Info) Description 06/16/2025 7:45 AM CUSTOMER SPECIALIST Office Visit [facility] Medical Group - Family [facility] [place] #2 [place] [address] Aisha Medina APRN, RETAIL HELPER #[address] [address] 07/06/2025 2:30 PM CUSTOMER SPECIALIST Office Visit [facility] Group - Endocrinology [facility] #2 [place] [address] Rita Lynne MD #[address] [address] documented as of this encounter Visit Diagnoses Diagnosis Hypertension, unspecified type Burning sensation of skin documented in this encounter Additional Health Concerns Assessment Noted Time PHQ-9 Depression Total Score: 0 03/01/20 21 10:00 AM CDT documented as of this encounter Care Teams Casting Machine Control Board Operator Relationship Specialty Start Date End Date Aisha Medina APRN, RETAIL HELPER #[address] [address] PCP - General Advanced Practice Nurse 07/17/18 Ariel Lua DPM Consulting Physician Podiatry 12/02/16 Juanjo Mclaughlin MD [address] [place] [address] Consulting Physician Oncology 12/01/19 Rita Lynne MD #[address] [address] Consulting Physician Endocrinology 10/17/22 Meron Gurrola, RN [place] Nurse Infantry Operations Specialist 01/09/24 01/15/24 Meron Gurrola RN [place] Nurse Infantry Operations Specialist 11/26/24 12/08/24 documented as of this encounter
--- OUTSIDE RECORDS SUMMARY | 2025-06-03 15:59 | XMS_ITS | Encounter Summary ---
Author Organization [facility] Address [address] [place] [address] Phone Care Team Providers Care Vest Front Presser Name Role Phone Ariel Lua Nikhil DPM Unavailable [phone] Aisha Medina APRN, PICK UP WORKER Primary Care Prov ider Juanjo Mclaughlin MD Unavailable Rita Lynne MD Unavailable Meron Gurrola RN Unavailable Unavailable Meron Gurrola RN Unavailable Unavailable Reason for Visit * Reason Comments Medication Refill Encounter Details Date Type Department Care Team (Late st Contact Info) Description 09/04/2022 Refill [facility] - Family Medicine [facility] #2 [place] [phone] Jean-Paul Mcneal MD #[address] [address] Medication Refill Social History Tobacco Use Types [...] Visit Aisha Medina APRN, [facility] 04/11/22 Office Visit Aisha Medina APRN, [facility] [place] 12/11/21 Procedure Visit Claus Guaman [facility] 12/04/21 Office Visit Aisha Medina APRN, CNP [facility] [place] 10/15/21 Office Visit Aisha Medina APRN, [facility] Showing recent visits within past 365 days and meeting all other requirements Future Appointments Date Type Provider Dept 11/19/22 Appointment Aisha Medina APRN, CNP [facility] [place] Showing future appointments within next 90 days and meeting all other requirements TRICIAN APPRENTICE POWERHOUSE documented in this encounter Plan of Treatment Upcoming Encounters Date Type Department Care Team (Late st Contact Info) Description 06/16/2025 7:45 AM ELECTRICIAN APPRENTICE POWERHOUSE Office Visit [facility] Medical [facility] - Family Medicine - [place] #2 [place] [phone] Aisha Medina APRN, PICK UP WORKER #[address] [phone] 07/06/2025 2:30 PM ELECTRICIAN APPRENTICE POWERHOUSE Office Visit [facility] Medical Group - Endocrinology - [place] #2 [place] [address] Rita Lynne MD #[address] [address] documented as of this encounter Visit Diagnoses Not on filedocumented in this encounter Additional Health Concerns Assessment Noted Time PHQ-9 Depression Total Score: 0 03/01/20 21 10:00 AM CDT documented as of this encounter Care Teams Vest Front Presser Relationship Specialty Start Date End Date Aisha Medina, LIFE ENRICHMENT ASSISTANT, PICK UP WORKER #[address] [address] PCP - General Advanced Practice Nurse 07/17/18 Ariel Lua DPM Consulting Physician Podiatry 12/02/16 Juanjo Mclaughlin MD [address] [place] [address] Consulting Physician Oncology 12/01/19 Rita Lynne MD #[address] [address] Consulting Physician Endocrinology 10/17/22 Meron Gurrola, ZEINAB [place] Nurse Cosmetic Sales 01/09/24 01/15/24 Meron Gurrola RN [place] Nurse Cosmetic Sales 11/26/24 12/08/24 documented as of this encounter
--- OUTSIDE RECORDS SUMMARY | 2025-06-03 15:59 | XMS_ITS | Encounter Summary ---
Author Organization [facility] Address [address] [place] [address] Phone Care Team Providers Care Home Health Aid Name Role Phone Ariel Lua Nikhil DPM Unavailable [phone] Aisha Medina APRN, CHURCH MUSICIAN Primary Care Prov ider Juanjo Mclaughlin MD Unavailable Rita Lynne MD Unavailable Meron Gurrola RN Unavailable Unavailable Meron Gurrola RN Unavailable Unavailable Reason for Visit * Reason Comments Medication Refill Encounter Details Date Type Department Care Team (Late st Contact Info) Description 06/08/2022 [facility]ill [facility] - Endocrinology [facility] #2 [place] [address] Rita Lynne MD #[address] [address] Medication Refill Social History [...] Coronavirus/COVID-19? No / Unsure 05/21/2022 12:41 PM SECONDARY SPECIAL EDUCATION TEACHER documented as of this encounter Miscellaneous Notes * Telephone Encounter - Tammy Mccartney, RN - 06/11/2022 8:06 AM SECONDARY SPECIAL EDUCATION TEACHER Requested Prescriptions Pending Prescriptions Disp Refills ??? Continuous Blood Gluc Sensor (Dexcom G6 Sensor) Misc [Pharmacy Med Name: DEXCOM G6 SENSOR MISC]3 Each 3 Sig: CHANGE SENSOR EVERY 10 DAYS Next appt: Message left to schedule follow up. NDARY SPECIAL EDUCATION TEACHER documented in this encounter Plan of Treatment Upcoming Encounters Date Type Department Care Team (Late st Contact Info) Description 06/16/2025 7:45 AM SECONDARY SPECIAL EDUCATION TEACHER Office Visit [facility] - Family Medicine [facility] #2 [place] [address] Aisha Medina APRN, CHURCH MUSICIAN #[address] [address] 07/06/2025 2:30 PM SECONDARY SPECIAL EDUCATION TEACHER Office Visit [facility] - Endocrinology - [place] #2 [place] [address] Rita Lynne MD #[address] [facility] [address] [place] [address] documented as of this encounter Visit Diagnoses Not on filedocumented in this encounter Additional Health Concerns Assessment Noted Time PHQ-9 Depression Total Score: 0 03/01/20 21 10:00 AM CDT documented as of this encounter Care Teams Home Health Aid Relationship Specialty Start Date End Date Aisha Medina APRN, CHURCH MUSICIAN #[address] [facility] [address] [place] [address] PCP - General Advanced Practice Nurse 07/17/18 Ariel Lua DPM Consulting Physician Podiatry 12/02/16 Juanjo Mclaughlni MD [address] [address] Consulting Physician Oncology 12/01/19 Rita Lynne MD #[address] [address] Consulting Physician Endocrinology 10/17/22 Meron Gurrola RN [place] Nurse Opener 01/09/24 01/15/24 Meron Gurrola RN [place] Nurse Opener 11/26/24 12/08/24 documented as of this encounter
--- OUTSIDE RECORDS SUMMARY | 2025-06-03 15:59 | XMS_ITS | Encounter Summary ---
Author Organization [facility] Address [address] [place] [address] Phone Care Team Providers Care Physician Anesthesiologist Name Role Phone Ariel Lua DPM Unavailable [phone] Aisha Medina APRN, OLEOMARGARINE MAKER Primary Care Prov ider Juanjo Mclaughlin MD Unavailable Rita Lynne MD Unavailable Meron Gurrola RN Unavailable Unavailable Meron Gurrola RN Unavailable Unavailable Reason for Visit * Reason Comments Medication Refill Encounter Details Date Type Department Care Team (Late st Contact Info) Description 06/08/2022 Refill [facility] - Family Medicine [facility] #2 [place] [address] Aisha Medina APRN, OLEOMARGARINE MAKER #[address] [address] Medication Refill Social History [...] Coronavirus/COVID-19? No / Unsure 05/21/2022 12:41 PM GAS DISPATCHER documented as of this encounter Miscellaneous Notes [...] [place] 10/15/21 Office Visit Aisha Medina APRN, OLEOMARGARINE MAKER [facility] [place] Showing recent visits within past 365 days and meeting all other requirements Future Appointments No visits were found meeting these conditions. Showing future appointments within next 90 days and meeting all other requirements DISPATCHER documented in this encounter Plan of Treatment Upcoming Encounters Date Type Department Care Team (Late st Contact Info) Description 06/16/2025 7:45 AM GAS DISPATCHER Office Visit [facility] Family Medicine [facility] #2 [place] [address] Aisha Medina APRN, OLEOMARGARINE MAKER #[address] [address] 07/06/2025 2:30 PM GAS DISPATCHER Office Visit [facility] Endocrinology - [place] #2 [place] [address] Rita Lynne MD #[address] [address] documented as of this encounter Visit Diagnoses Not on filedocumented in this encounter Additional Health Concerns Assessment Noted Time PHQ-9 Depression Total Score: 0 03/01/20 21 10:00 AM CDT documented as of this encounter Care Teams Physician Anesthesiologist Relationship Specialty Start Date End Date Aisha Medina APRN, OLEOMARGARINE MAKER #[address] [address] PCP - General Advanced Practice Nurse 07/17/18 Ariel Lua DPM Consulting Physician Podiatry 12/02/16 Juanjo Mclaughlin MD [address] [place] [address] Consulting Physician Oncology 12/01/19 Rita Lynne MD #[address] [address] Consulting Physician Endocrinology 10/17/22 Meron Gurrola, RN [place] Nurse Timber Treating Tank Operator 01/09/24 01/15/24 Meron Gurrola RN [place] Nurse Timber Treating Tank Operator 11/26/24 12/08/24 documented as of this encounter
--- OUTSIDE RECORDS SUMMARY | 2025-06-03 15:59 | XMS_ITS | Encounter Summary ---
Author Organization [facility] Address [address] [place] [address] Phone Care Team Providers Care Supervisor Varnish Name Role Phone Ariel Lua DPM Unavailable [phone] Aisha Medina APRN, BUILDING ASSOCIATE Primary Care Prov ider Juanjo Mclaughlin MD Unavailable Rita Lynne MD Unavailable Meron Gurrola RN Unavailable Unavailable Meron Gurrola RN Unavailable Unavailable Reason for Visit * Reason Comments Medication Refill Encounter Details Date Type Department Care Team (Late st Contact Info) Description 05/09/2022 Refill [facility] - Family Medicine [facility] #2 [place] [address] Aisha Medina APRN, BUILDING ASSOCIATE #[address] [address] Medication Refill Social History Tobacco [...] st Contact Info) Description 06/16/2025 7:45 AM FELTMAKER AND WEIGHER Office Visit [facility] Family Medicine [facility] #2 [place] [address] Aisha Medina APRN, BUILDING ASSOCIATE #[address] [phone] 07/06/2025 2:30 PM FELTMAKER AND WEIGHER Office Visit [facility] Endocrinology [facility] #2 [place] [address] Rita Lynne MD #[address] [address] documented as of this encounter Visit Diagnoses [...] documented as of this encounter Care Teams Supervisor Varnish Relationship Specialty Start Date End Date Aisha Medina APRN, BUILDING ASSOCIATE #[address] [phone] PCP - General Advanced Practice Nurse 07/17/18 Ariel Lua DPM Consulting Physician Podiatry 12/02/16 Juanjo Mclaughlin MD [address] [address] Consulting Physician Oncology 12/01/19 Rita Lynne MD #[address] [address] Consulting Physician Endocrinology 10/17/22 Meron Gurrola, RN [place] Nurse Home Care Giver 01/09/24 01/15/24 Meron Gurrola, ZEINAB [place] Nurse Home Care Giver 11/26/24 12/08/24 documented as of this encounter
--- OUTSIDE RECORDS SUMMARY | 2025-06-03 15:59 | XMS_ITS | Encounter Summary ---
Author Organization [facility] Address [address] [place] [address] Phone Care Team Providers Care Nursery Manager Name Role Phone Ariel Lua Nikhil DPM Unavailable [phone] Aisha Medina APRN, ENVIRONMENTAL GEOLOGIST Primary Care Prov ider Juanjo Mclaughlin MD Unavailable Rita Lynne MD Unavailable Meron Gurrola RN Unavailable Unavailable Meron Gurrola RN Unavailable Unavailable Reason for Visit * Reason Comments Medication Refill Encounter Details Date Type Department Care Team (Late st Contact Info) Description 09/07/2022 Refill [facility] - Family Medicine [facility] #2 [place] [address] Aisha Medina APRN, ENVIRONMENTAL GEOLOGIST #[address] [address] Medication Refill Social History Tobacco [...] 90 90 Tablet Aisha Medina APRN, CNP [facility] Pharmac documented in this encounter Plan of Treatment Upcoming Encounters Date Type Department Care Team (Late st Contact Info) Description 06/16/2025 7:45 AM EDUCATIONAL RECRUITER Office Visit [facility] - Family Medicine - [place] #2 [place] [address] Aisha Medina APRN, CNP #[address] [address] 07/06/2025 2:30 PM EDUCATIONAL RECRUITER Office Visit [facility] - Endocrinology - [place] #2 [place] [phone] Rita Lynne MD #[address] [address] documented as of this encounter Visit Diagnoses Diagnosis Hypertension, unspecified type documented in this encounter Additional Health Concerns Assessment Noted Time PHQ-9 Depression Total Score: 0 03/01/20 21 10:00 AM CDT documented as of this encounter Care Teams Nursery Manager Relationship Specialty Start Date End Date Aisha Medina APRN, CNP #[address] [address] PCP - General Advanced Practice Nurse 07/17/18 Ariel Lua DPM Consulting Physician Podiatry 12/02/16 Juanjo Mclaughlin MD [address] [place] [address] Consulting Physician Oncology 12/01/19 Rita Lynne MD #[address] [address] Consulting Physician Endocrinology 10/17/22 Meron Gurrola, ZEINAB [place] Nurse Conveyor Operator 01/09/24 01/15/24 Meron Gurrola RN [place] Nurse Conveyor Operator 11/26/24 12/08/24 documented as of this encounter
--- OUTSIDE RECORDS SUMMARY | 2025-06-03 15:59 | XMS_ITS | Encounter Summary ---
Author Organization [facility] Address [address] [place] [address] Phone Care Team Providers Care Silk Screen Painter Name Role Phone ChanellAriel kam Nikhil DPM Unavailable [phone] Aisha Medina APRN, COMMUNICATIONS INSTRUCTOR Primary Care Prov ider Juanjo Mclaughlin MD Unavailable Rita Lynne MD Unavailable Meron Gurrola RN Unavailable Unavailable Meron Gurrola RN Unavailable Unavailable Reason for Visit * Reason Comments Medication Refill Encounter Details Date Type Department Care Team (Late st Contact Info) Description 12/07/2022 Refill [facility] - Family Medicine [facility] #2 [place] [address] Jean-Paul Mcneal MD #[address] [address] Medication Refill Social History Tobacco Use Types [...] st Contact Info) Description 06/16/2025 7:45 AM STEWARD/STEWARDESS SECOND Office Visit [facility] - Family Medicine - [place] #2 [facility] [place] [address] Aisha Medina APRN, KASSI #[address] [phone] 07/06/2025 2:30 PM STEWARD/STEWARDESS SECOND Office Visit [facility] - Endocrinology - [place] #2 [place] [address] Rita Lynne MD #[address] [phone] documented as of this encounter Visit Diagnoses Not on filedocumented in this encounter Additional Health Concerns Assessment Noted Time PHQ-9 Depression Total Score: 0 03/01/20 21 10:00 AM CDT documented as of this encounter Care Teams Silk Screen Painter Relationship Specialty Start Date End Date Aisha Medina APRN, KASSI #[address] [phone] PCP - General Advanced Practice Nurse 07/17/18 Ariel Lua DPM Consulting Physician Podiatry 12/02/16 Juanjo Mclaughlin MD [address] [place] [address] Consulting Physician Oncology 12/01/19 Rita Lynne MD #[address] [address] Consulting Physician Endocrinology 10/17/22 Mreon Gurrola, ZEINAB [place] Nurse Certified Adapted Physical Educator 01/09/24 01/15/24 Meron Gurrola RN [place] Nurse Certified Adapted Physical Educator 11/26/24 12/08/24 documented as of this encounter
--- OUTSIDE RECORDS SUMMARY | 2025-06-03 15:59 | XMS_ITS | Encounter Summary ---
Author Organization [facility] Address [address] [place] [address] Phone Care Team Providers Care Water Conservation Specialist Name Role Phone Ariel Lua DPM Unavailable [phone] Aisha Medina APRN, BEEF GRADER Primary Care Prov ider Juanjo Mclaughlin MD Unavailable Rita Lynne MD Unavailable Meron Gurrola RN Unavailable Unavailable Meron Gurrola RN Unavailable Unavailable Reason for Visit * Reason Comments Medication Refill Encounter Details Date Type Department Care Team (Late st Contact Info) Description 05/10/2022 Refill [facility] - Family Medicine [facility] #2 [place] [address] Aisha Medina APRN, BEEF GRADER #[address] [address] Medication Refill Social History Tobacco [...] st Contact Info) Description 06/16/2025 7:45 AM FELL CUTTER Office Visit [facility] Family Medicine [facility] #2 [place] [address] Aisha Medina APRN, BEEF GRADER #[address] [phone] 07/06/2025 2:30 PM FELL CUTTER Office Visit [facility] Endocrinology [facility] #2 [place] [address] Rita Lynne MD #[address] [address] documented as of this encounter Visit Diagnoses [...] documented as of this encounter Care Teams Water Conservation Specialist Relationship Specialty Start Date End Date Aisha Medina APRN, BEEF GRADER #[address] [phone] PCP - General Advanced Practice Nurse 07/17/18 Ariel Lua DPM Consulting Physician Podiatry 12/02/16 Juanjo Mclaughlin MD [address] [address] Consulting Physician Oncology 12/01/19 Rita Lynne MD #[address] [address] Consulting Physician Endocrinology 10/17/22 Meron Gurrola, RN [place] Nurse Senior Talent Management Consultant 01/09/24 01/15/24 Meron Gurrola, ZEINAB [place] Nurse Senior Talent Management Consultant 11/26/24 12/08/24 documented as of this encounter
--- OUTSIDE RECORDS SUMMARY | 2025-06-03 15:59 | XMS_ITS | Encounter Summary ---
Author Organization [facility] Address [address] [place] [address] Phone Care Team Providers Care Animator Name Role Phone Ariel Lua Nikhil DPM Unavailable [phone] Aisha Medina APRN, SAFETY AND SECURITY OFFICER Primary Care Prov ider Juanjo Mclaughlin MD Unavailable Rita Lynne MD Unavailable Meron Gurrola RN Unavailable Unavailable Meron Gurrola RN Unavailable Unavailable Reason for Visit * Reason Comments Medication Refill Encounter Details Date Type Department Care Team (Late st Contact Info) Description 07/10/2022 Refill [facility] - Family Medicine [facility] #2 [place] [address] Aisha Medina APRN, SAFETY AND SECURITY OFFICER #[address] [address] Medication Refill Social History Tobacco [...] st Contact Info) Description 06/16/2025 7:45 AM RAISE DRILL OPERATOR Office Visit [facility] Family Medicine [facility] #2 [place] [address] Aisha Medina APRN, SAFETY AND SECURITY OFFICER #[address] [phone] 07/06/2025 2:30 PM RAISE DRILL OPERATOR Office Visit [facility] Endocrinology [facility] #2 [place] [address] Rita Lynne MD #[address] [phone] documented as of this encounter Visit Diagnoses [...] documented as of this encounter Care Teams Animator Relationship Specialty Start Date End Date Aisha Medina APRN, SAFETY AND SECURITY OFFICER #[address] [phone] PCP - General Advanced Practice Nurse 07/17/18 Ariel Lua DPM Consulting Physician Podiatry 12/02/16 Juanjo Mclaughlin MD [address] [place] [address] Consulting Physician Oncology 12/01/19 Rita Lynne MD #[address] [address] Consulting Physician Endocrinology 10/17/22 Meron Gurrola, RN [place] Nurse Arrt Technologist 01/09/24 01/15/24 Meron Gurrola RN [place] Nurse Arrt Technologist 11/26/24 12/08/24 documented as of this encounter
--- OUTSIDE RECORDS SUMMARY | 2025-06-03 15:59 | XMS_ITS | Encounter Summary ---
Author Organization [facility] Address [address] [place] [address] Phone Care Team Providers Care Handkerchief Sample Clerk Name Role Phone Ariel Lua DPM Unavailable [phone] Aisha Medina APRN, CHIEF TECHNICIAN Primary Care Prov ider Juanjo Mclaughlin MD Unavailable Rita Lynne MD Unavailable Meron Gurrola RN Unavailable Unavailable Meron Gurrola RN Unavailable Unavailable Reason for Visit * Reason Comments Medication Refill Encounter Details Date Type Department Care Team (Late st Contact Info) Description 12/07/2021 Refill [facility] - Family Medicine [facility] #2 [place] [address] Aisha Medina APRN, CHIEF TECHNICIAN #[address] [address] Medication Refill Social History [...] st Contact Info) Description 06/16/2025 7:45 AM BROKERAGE MANAGER Office Visit [facility] - Family Medicine - [place] #2 [place] [address] Aisha Medina APRN, CHIEF TECHNICIAN #[address] [address] 07/06/2025 2:30 PM BROKERAGE MANAGER Office Visit [facility] Endocrinology - [place] #2 [place] [address] Rita Lynne MD #[address] [phone] documented as of this encounter Visit Diagnoses Not on filedocumented in this encounter Additional Health Concerns Assessment Noted Time PHQ-9 Depression Total Score: 0 03/01/20 21 10:00 AM CDT documented as of this encounter Care Teams Handkerchief Sample Clerk Relationship Specialty Start Date End Date Aisha Medina APRN, CHIEF TECHNICIAN #[address] [address] PCP - General Advanced Practice Nurse 07/17/18 Ariel Lua DPM Consulting Physician Podiatry 12/02/16 Juanjo Mclaughlin MD [address] [place] [address] Consulting Physician Oncology 12/01/19 Rita Lynne MD #[address] [phone] Consulting Physician Endocrinology 10/17/22 Meron Gurrola, RN [place] Nurse Communications Programmer 01/09/24 01/15/24 Meron Gurrola, RN [place] Nurse Communications Programmer 11/26/24 12/08/24 documented as of this encounter
--- OUTSIDE RECORDS SUMMARY | 2025-06-03 15:59 | XMS_ITS | Encounter Summary ---
Author Organization [facility] Address [address] [place] [address] Phone Care Team Providers Care Surgery Center Administrator Name Role Phone Ariel Lua Nikhil DPM Unavailable [phone] Aisha Medina APRN, SCIENCE WRITER Primary Care Prov ider Juanjo Mclaughlin MD Unavailable Rita Lynne MD Unavailable Meron Gurrola RN Unavailable Unavailable Meron Gurrola RN Unavailable Unavailable Reason for Visit * Reason Comments Medication Refill Encounter Details Date Type Department Care Team (Late st Contact Info) Description 10/29/2022 Refill [facility] - Family Medicine [facility] #2 [place] [address] Aisha Medina APRN, SCIENCE WRITER #[address] [address] Medication Refill Social History Tobacco [...] 05/21/22 Office Visit Aisha Medina APRN, CNP [facility] 04/11/22 Office Visit [facility], KASSI [facility] 12/11/21 Procedure Visit Claus Guaman [facility] 12/04/21 Office Visit Aisha Medina APRN, CNP [facility] Showing recent visits within past 365 days and meeting all other requirements Future Appointments Date Type Provider Dept 11/19/22 Appointment Aisha Medina APRN, CNP [facility] Showing future appointments within next 90 days and meeting all other requirements documented in this encounter Plan of Treatment Upcoming Encounters Date Type Department Care Team (Late st Contact Info) Description 06/16/2025 7:45 AM AUTOMATIC TELLER MACHINE SERVICER Office Visit [facility] - Family Medicine - [place] #2 [place] [address] Aisha Medina APRN, SCIENCE WRITER #[address] [address] 07/06/2025 2:30 PM AUTOMATIC TELLER MACHINE SERVICER Office Visit [facility] - Endocrinology - [place] #2 [place] [address] Rita Lynne MD #[address] [address] documented as of this encounter Visit Diagnoses Not on filedocumented in this encounter Additional Health Concerns Assessment Noted Time PHQ-9 Depression Total Score: 0 03/01/20 21 10:00 AM CDT documented as of this encounter Care Teams Surgery Center Administrator Relationship Specialty Start Date End Date Aisha Medina APRN, SCIENCE WRITER #[address] [address] PCP - General Advanced Practice Nurse 07/17/18 Ariel Lua DPM Consulting Physician Podiatry 12/02/16 Juanjo Mclaughlin MD [address] [place] [address] Consulting Physician Oncology 12/01/19 Rita Lynne MD #[address] [address] Consulting Physician Endocrinology 10/17/22 Meron Gurrola, RN [place] Nurse Grinder Set Up Operator Thread Tool 01/09/24 01/15/24 Meron Gurrola, RN [place] Nurse Grinder Set Up Operator Thread Tool 11/26/24 12/08/24 documented as of this encounter
--- OUTSIDE RECORDS SUMMARY | 2025-06-03 15:59 | XMS_ITS | Encounter Summary ---
Author Organization [facility] Address [address] [place] [address] Phone Care Team Providers Care Cyber Security Manager Name Role Phone Ariel Lua Nikhil DPM Unavailable [phone] Aisha Medina APRN, PNEUMATIC TOOL OPERATOR Primary Care Prov ider Juanjo Mclaughlin MD Unavailable Rita Lynne MD Unavailable Meron Gurrola RN Unavailable Unavailable Meron Gurrola RN Unavailable Unavailable Reason for Visit * Reason Comments Medication Refill Encounter Details Date Type Department Care Team (Late st Contact Info) Description 10/07/2022 Refill [facility] Family Medicine [facility] #2 [place] [address] Aisha Medina APRN, PNEUMATIC TOOL OPERATOR #[address] [address] Medication Refill Social History [...] 10/15/21 Office Visit StroAisha em APRN, CNP [facility] Showing recent visits within past 365 days and meeting all other requirements Future Appointments Date Type Provider Dept 11/19/22 Appointment Aisha Medina APRN, CNP [facility] Showing future appointments within next 90 days and meeting all other requirements documented in this encounter Plan of Treatment Upcoming Encounters Date Type Department Care Team (Late st Contact Info) Description 06/16/2025 7:45 AM METAL FURNITURE ASSEMBLER Office Visit [facility] Family Medicine [facility] #2 [facility] [place] [address] Aisha Medina APRN, KASSI #2 [facility] [address] [place] [address] 07/06/2025 2:30 PM METAL FURNITURE ASSEMBLER Office Visit [facility] Endocrinology [facility] #[address] [facility] [place] [address] Rita Lynne MD #2 [facility] [address] [place] [address] documented as of this encounter Visit Diagnoses [...] documented as of this encounter Care Teams Cyber Security Manager Relationship Specialty Start Date End Date Aisha Medina APRN, CNP #2 [facility] [address] [place] [address] PCP - General Advanced Practice Nurse 07/17/18 Ariel Lua DPM Consulting Physician Podiatry 12/02/16 Juanjo Mclaughlin MD [address] [address] Consulting Physician Oncology 12/01/19 Rita Lynne MD #[address] [address] Consulting Physician Endocrinology 10/17/22 Meron Gurrola, ZEINAB [place] Nurse Geomatics Professor 01/09/24 01/15/24 Meron Gurrola RN [place] Nurse Geomatics Professor 11/26/24 12/08/24 documented as of this encounter
--- OUTSIDE RECORDS SUMMARY | 2025-06-03 15:59 | XMS_ITS | Encounter Summary ---
Author Organization [facility] Address [address] [place] [address] Phone Care Team Providers Care Special Client Bus Driver Name Role Phone Ariel Lua Nikhil DPM Unavailable [phone] Aisha Medina APRN, REHABILITATION MEDICINE PHYSICIAN Primary Care Prov ider Juanjo Mclaughlin MD Unavailable Rita Lynne MD Unavailable Meron Gurrola RN Unavailable Unavailable Meron Gurrola RN Unavailable Unavailable Reason for Visit * Reason Comments Medication Refill Encounter Details Date Type Department Care Team (Late st Contact Info) Description 09/05/2022 [facility]ill [facility] - [facility] #2 [place] [address] Rita Lynne MD #[address] [address] Medication Refill Social History Tobacco [...] st Contact Info) Description 06/16/2025 7:45 AM WET WASH ASSEMBLER Office Visit [facility] - Family Medicine [facility] #2 [place] [address] Aisha Medina APRN, REHABILITATION MEDICINE PHYSICIAN #[address] [address] 07/06/2025 2:30 PM WET WASH ASSEMBLER Office Visit [facility] - Endocrinology - [place] #2 [place] [address] Rita Lynne MD #[address] [address] documented as of this encounter Visit Diagnoses Not on filedocumented in this encounter Additional Health Concerns Assessment Noted Time PHQ-9 Depression Total Score: 0 03/01/20 21 10:00 AM CDT documented as of this encounter Care Teams Special Client Bus Driver Relationship Specialty Start Date End Date Aisha Medina APRN, REHABILITATION MEDICINE PHYSICIAN #[address] [phone] PCP - General Advanced Practice Nurse 07/17/18 Ariel Lua DPM Consulting Physician Podiatry 12/02/16 Juanjo Mclaughlin MD [address] [place] [address] Consulting Physician Oncology 12/01/19 Rita Lynne MD #[address] [phone] Consulting Physician Endocrinology 10/17/22 Meron Gurrola, RN [place] Nurse Director Network Development 01/09/24 01/15/24 Meron Gurrola RN [place] Nurse Director Network Development 11/26/24 12/08/24 documented as of this encounter
--- OUTSIDE RECORDS SUMMARY | 2025-06-03 15:59 | XMS_ITS | Encounter Summary ---
Author Organization [facility] Address [address] [place] [address] Phone Care Team Providers Care Absorption Plant Operator Name Role Phone Ariel Lua Nikhil DPM Unavailable [phone] Aisha Medina APRN, COOLER OPERATOR Primary Care Prov ider Juanjo Mclaughlin MD Unavailable Rita Lynne MD Unavailable Meron Gurrola RN Unavailable Unavailable Meron Gurrola RN Unavailable Unavailable Reason for Visit * Reason Comments Medication Refill Encounter Details Date Type Department Care Team (Late st Contact Info) Description 07/24/2022 Refill [facility] - Family Medicine [facility] #2 [place] [phone] Jean-Paul Mcneal MD #[address] [address] Medication Refill Social History Tobacco Use Types [...] [place] 12/11/21 Procedure Visit Claus Guaman MD [facility] [place] 12/04/21 Office Visit Aisha Medina APRN, CNP [facility] [place] 10/15/21 Office Visit Aisha Medina APRN, KASSI [facility] [place] Showing recent visits within past 365 days and meeting all other requirements Future Appointments No visits were found meeting these conditions. Showing future appointments within next 90 days and meeting all other requirements EMIC INTERVENTIONIST documented in this encounter Plan of Treatment Upcoming Encounters Date Type Department Care Team (Late st Contact Info) Description 06/16/2025 7:45 AM ACADEMIC INTERVENTIONIST Office Visit [facility] Medical [facility] - Family Medicine - [place] #2 [place] [address] Aisha Medina APRN, COOLER OPERATOR #[address] [place] [address] 07/06/2025 2:30 PM ACADEMIC INTERVENTIONIST Office Visit [facility] Medical [facility] - Endocrinology - [place] #2 [place] [address] Rita Lynne MD #[address] [address] documented as of this encounter Visit Diagnoses Not on filedocumented in this encounter Additional Health Concerns Assessment Noted Time PHQ-9 Depression Total Score: 0 03/01/20 21 10:00 AM CDT documented as of this encounter Care Teams Absorption Plant Operator Relationship Specialty Start Date End Date Aisha Medina, FOOD ANALYST, COOLER OPERATOR #[address] [address] PCP - General Advanced Practice Nurse 07/17/18 Ariel Lua DPM Consulting Physician Podiatry 12/02/16 Juanjo Mclaughlin MD [address] [place] [address] Consulting Physician Oncology 12/01/19 Rita Lynne MD #[address] [address] Consulting Physician Endocrinology 10/17/22 Meron Gurrola, RN [place] Nurse Preparer Samples And Repairs 01/09/24 01/15/24 Meron Gurrola, RN [place] Nurse Preparer Samples And Repairs 11/26/24 12/08/24 documented as of this encounter
--- OUTSIDE RECORDS SUMMARY | 2025-06-03 15:59 | XMS_ITS | Encounter Summary ---
Author Organization [facility] Address [address] [place] [address] Phone Care Team Providers Care Educational Resource Center Teacher Name Role Phone Ariel Lua Nikhil DPM Unavailable [phone] Aisha Medina APRN, BOOKSEAMER BLINDSTITCH Primary Care Prov ider Juanjo Mclaughlin MD Unavailable Rita Lynne MD Unavailable Meron Gurrola RN Unavailable Unavailable Meron Gurrola RN Unavailable Unavailable Reason for Visit * Reason Comments Medication Refill Encounter Details Date Type Department Care Team (Late st Contact Info) Description 07/12/2022 Refill [facility] - Family Medicine [facility] #2 [place] [address] Aisha Medina APRN, BOOKSEAMER BLINDSTITCH #[address] [address] Medication Refill Social History Tobacco [...] 30 30 Tablet Aisha Medina APRN, CNP [facility] Pharmac... PTIONIST SCHEDULER documented in this encounter Plan of Treatment Upcoming Encounters Date Type Department Care Team (Late st Contact Info) Description 06/16/2025 7:45 AM RECEPTIONIST SCHEDULER Office Visit [facility] - Family Medicine - [place] #2 [facility] [place] [address] Aisha Medina APRN, CNP #[address] [address] 07/06/2025 2:30 PM RECEPTIONIST SCHEDULER [facility] - [place] #2 [place] [phone] Rita Lynne MD #[address] [place] [address] [address] documented as of this encounter Visit Diagnoses [...] documented as of this encounter Care Teams Educational Resource Center Teacher Relationship Specialty Start Date End Date Aisha Medina APRN, CNP #[address] [address] PCP - General Advanced Practice Nurse 07/17/18 Ariel Lua DPM Consulting Physician Podiatry 12/02/16 Juanjo Mclaughlin MD [address] [address] Consulting Physician Oncology 12/01/19 Rita Lynne MD #[address] [place] [address] [address] Consulting Physician Endocrinology 10/17/22 Meron Gurrola, RN [place] Nurse Estimator Lumber 01/09/24 01/15/24 Meron Gurrola RN [place] Nurse Estimator Lumber 11/26/24 12/08/24 documented as of this encounter
--- OUTSIDE RECORDS SUMMARY | 2025-06-03 15:59 | XMS_ITS | Encounter Summary ---
Author Organization [facility] Address [address] [place] [address] Phone Care Team Providers Care Project Architect Name Role Phone Ariel Lua Nikhil DPM Unavailable [phone] Aisha Medina APRN, SENIOR WIND ENERGY CONSULTANT Primary Care Prov ider Juanjo Mclaughlin MD Unavailable Rita Lynne MD Unavailable Meron Gurrola RN Unavailable Unavailable Meron Gurrola RN Unavailable Unavailable Reason for Visit * Reason Comments Medication Refill Encounter Details Date Type Department Care Team (Late st Contact Info) Description 12/23/2022 Refill [facility] - Family Medicine [facility] #2 [place] [address] Aisha Medina APRN, SENIOR WIND ENERGY CONSULTANT #[address] [address] Medication Refill Social History [...] st Contact Info) Description 06/16/2025 7:45 AM SOFTWARE SPECIALIST Office Visit [facility] - Family Medicine - [place] #2 [place] [phone] Aisha Medina APRN, SENIOR WIND ENERGY CONSULTANT #2 [facility] [address] [place] [phone] 07/06/2025 2:30 PM SOFTWARE SPECIALIST Office Visit [facility] - Endocrinology - [place] #2 [place] [address] Rita Lynne MD #2 [facility] [address] [place] [phone] documented as of this encounter Visit Diagnoses Not on filedocumented in this encounter Additional Health Concerns Assessment Noted Time PHQ-9 Depression Total Score: 0 03/01/20 21 10:00 AM CDT documented as of this encounter Care Teams Project Architect Relationship Specialty Start Date End Date Aisha Medina APRN, SENIOR WIND ENERGY CONSULTANT #2 [facility] [address] [place] [phone] PCP - General Advanced Practice Nurse 07/17/18 Ariel Lua DPM Consulting Physician Podiatry 12/02/16 Juanjo Mclaughlin MD [address] [place] [address] Consulting Physician Oncology 12/01/19 Rita Lynne MD #2 [facility] [address] [place] [phone] Consulting Physician Endocrinology 10/17/22 Meron Gurrola, RN [place] Nurse Heating Repair Technician 01/09/24 01/15/24 Meron Gurrola RN [place] Nurse Heating Repair Technician 11/26/24 12/08/24 documented as of this encounter
--- OUTSIDE RECORDS SUMMARY | 2025-06-03 15:59 | XMS_ITS | Encounter Summary ---
Author Organization [facility] Address [address] [place] [address] Phone Care Team Providers Care Mine Production Engineer Name Role Phone Ariel Lua Nikhil DPM Unavailable [phone] Aisha Medina APRN, NETWORK STRATEGIST Primary Care Prov ider Juanjo Mclaughlin MD Unavailable Rita Lynne MD Unavailable Meron Gurrola RN Unavailable Unavailable Meron Gurrola RN Unavailable Unavailable Reason for Visit * Reason Comments Medication Refill Encounter Details Date Type Department Care Team (Late st Contact Info) Description 10/04/2022 Refill [facility] - Family Medicine [facility] #2 [place] [address] Aisha Medina APRN, NETWORK STRATEGIST #[address] [address] Medication Refill Social History Tobacco [...] Office Visit Aisha Medina APRN, CNP [facility] [place] 12/11/21 Procedure Visit Claus Guaman MD [facility] [place] 12/04/21 Office Visit Aisha Medina APRN, CNP [facility] [place] 10/15/21 Office Visit Aisha Medina APRN, KASSI [facility] [place] Showing recent visits within past 365 days and meeting all other requirements Future Appointments Date Type Provider Dept 11/19/22 Appointment Aisha Medina APRN, KASSI [facility] [place] Showing future appointments within next 90 days and meeting all other requirements Passed - Absence of nitrates on med list documented in this encounter Plan of Treatment Upcoming Encounters Date Type Department Care Team (Late st Contact Info) Description 06/16/2025 7:45 AM PROGRAMMING INTERNSHIP Office Visit [facility] - Family Medicine - [place] #[address] [place] [address] Aisha Medina APRN, NETWORK STRATEGIST #[address] [address] 07/06/2025 2:30 PM PROGRAMMING INTERNSHIP Office Visit [facility] - Endocrinology - [place] #2 [place] [address] Rita Lynne MD #[address] [address] documented as of this encounter Visit Diagnoses Not on filedocumented in this encounter Additional Health Concerns Assessment Noted Time PHQ-9 Depression Total Score: 0 03/01/20 21 10:00 AM CDT documented as of this encounter Care Teams Mine Production Engineer Relationship Specialty Start Date End Date Aisha Medina, CORNCOB PIPE SUPERVISOR, NETWORK STRATEGIST #[address] [address] PCP - General Advanced Practice Nurse 07/17/18 Ariel Lua DPM Consulting Physician Podiatry 12/02/16 Juanjo Mclaughlin MD [address] [place] [address] Consulting Physician Oncology 12/01/19 Rita Lynne MD #[address] [phone] Consulting Physician Endocrinology 10/17/22 Meron Gurrola, RN [place] Nurse Cold Roll Operator 01/09/24 01/15/24 Meron Gurrola, ZEINAB [place] Nurse Cold Roll Operator 11/26/24 12/08/24 documented as of this encounter
--- OUTSIDE RECORDS SUMMARY | 2025-06-03 15:59 | XMS_ITS | Encounter Summary ---
Author Organization [facility] Address [address] [place] [address] Phone Care Team Providers Care Custodian Manager Name Role Phone Ariel Lua Nikhil DPM Unavailable [phone] Aisha Medina APRN, CONSTRUCTION EQUIPMENT TECHNICIAN Primary Care Prov ider Juanjo Mclaughlin MD Unavailable Rita Lynne MD Unavailable Meron Gurrola RN Unavailable Unavailable Meron Gurrola RN Unavailable Unavailable Reason for Visit * Reason Comments Medication Refill Encounter Details Date Type Department Care Team (Late st Contact Info) Description 03/07/2022 [facility]ill [facility] - Family Medicine [facility] #2 [place] [address] Aisha Medina APRN, CONSTRUCTION EQUIPMENT TECHNICIAN #[address] [address] Medication Refill Social History [...] st Contact Info) Description 06/16/2025 7:45 AM TRENCH DIGGER HELPER [facility] #2 [place] [address] Aisha Medina APRN, CONSTRUCTION EQUIPMENT TECHNICIAN #[address] [address] 07/06/2025 2:30 PM TRENCH DIGGER HELPER Office Visit [facility] Endocrinology [facility] #2 [place] [address] Rita Lynne MD #[address] [address] documented as of this encounter Visit Diagnoses Diagnosis Hypertension, unspecified type Burning sensation of skin documented in this encounter Additional Health Concerns Assessment Noted Time PHQ-9 Depression Total Score: 0 03/01/20 21 10:00 AM CDT documented as of this encounter Care Teams Custodian Manager Relationship Specialty Start Date End Date Aisha Medina APRN, CONSTRUCTION EQUIPMENT TECHNICIAN #[address] [address] PCP - General Advanced Practice Nurse 07/17/18 Ariel Lua DPM Consulting Physician Podiatry 12/02/16 Juanjo Mclaughlin MD [address] [place] [address] Consulting Physician Oncology 12/01/19 Rita Lynne MD #[address] [address] Consulting Physician Endocrinology 10/17/22 Meron Gurrola, ZEINAB [place] Nurse Cabinetmaker Maintenance 01/09/24 01/15/24 Meron Gurrola RN [place] Nurse Cabinetmaker Maintenance 11/26/24 12/08/24 documented as of this encounter
--- OUTSIDE RECORDS SUMMARY | 2025-06-03 15:59 | XMS_ITS | Encounter Summary ---
Author Organization [facility] Address [address] [place] [address] Phone Care Team Providers Care Carousel Operator Name Role Phone Ariel Lua Nikhil DPM Unavailable [phone] Aisha Medina APRN, OUTSOLE CEMENTER Primary Care Prov ider Juanjo Mclaughlin MD Unavailable Rita Lynne MD Unavailable Meron Gurrola RN Unavailable Unavailable Meron Gurrola RN Unavailable Unavailable Reason for Visit * Reason Comments Medication Refill Encounter Details Date Type Department Care Team (Late st Contact Info) Description 12/26/2022 Refill [facility] - Family Medicine [facility] #2 [place] [address] Aisha Medina APRN, OUTSOLE CEMENTER #[address] [address] Medication Refill Social History Tobacco [...] 2 Signed by: Aisha Medina APRN, CNP [facility] pharmacy documented in this encounter Plan of Treatment Upcoming Encounters Date Type Department Care Team (Late st Contact Info) Description 06/16/2025 7:45 AM ASSEMBLER BRAZER Office Visit [facility] - Family Medicine [facility] #2 [place] [address] Aisha Medina APRN, CNP #2 [facility] [address] [place] [address] 07/06/2025 2:30 PM ASSEMBLER BRAZER Office Visit [facility] Medical [facility] - Endocrinology - [place] #2 [place] [address] Rita Lynne MD #2 [facility] [address] [place] [address] documented as of this encounter Visit Diagnoses [...] documented as of this encounter Care Teams Carousel Operator Relationship Specialty Start Date End Date Aisha Medina APRN, CNP #[address] [place] [address] PCP - General Advanced Practice Nurse 07/17/18 Ariel Lua DPM Consulting Physician Podiatry 12/02/16 Juanjo Mclaughlin MD [address] [place] [address] Consulting Physician Oncology 12/01/19 Rita Lynne MD #[address] [address] Consulting Physician Endocrinology 10/17/22 Meron Gurrola, ZEINAB [place] Nurse Inventory Control Supervisor 01/09/24 01/15/24 Meron Gurrola RN [place] Nurse Inventory Control Supervisor 11/26/24 12/08/24 documented as of this encounter
--- OUTSIDE RECORDS SUMMARY | 2025-06-03 15:59 | XMS_ITS | Encounter Summary ---
Author Organization [facility] Address [address] [place] [address] Phone Care Team Providers Care Head Charger Name Role Phone Ariel Lua Nikhil DPM Unavailable [phone] Aisha Medina APRN, TRADING ASSISTANT Primary Care Prov ider Juanjo Mclaughlin MD Unavailable Rita Lynne MD Unavailable Meron Gurrola RN Unavailable Unavailable Meron Gurrola RN Unavailable Unavailable Reason for Visit * Reason Comments Medication Refill Encounter Details Date Type Department Care Team (Late st Contact Info) Description 09/06/2022 Refill [facility] - Family Medicine [facility] #2 [place] [address] Aisha Medina APRN, TRADING ASSISTANT #[address] [address] Medication Refill Social History Tobacco [...] RN - 09/06/2022 10:07 AM CST duplicate RY TANK TENDER documented in this encounter Plan of Treatment Upcoming Encounters Date Type Department Care Team (Late st Contact Info) Description 06/16/2025 7:45 AM SLURRY TANK TENDER Office Visit [facility] Family Medicine [facility] #2 [place] [address] Aisha Medina APRN, TRADING ASSISTANT #[address] [address] 07/06/2025 2:30 PM SLURRY TANK TENDER Office Visit [facility] Endocrinology [facility] #2 [place] [address] Rita Lynne MD #[address] [address] documented as of this encounter Visit Diagnoses Diagnosis Hypertension, unspecified type documented in this encounter Additional Health Concerns Assessment Noted Time PHQ-9 Depression Total Score: 0 03/01/20 21 10:00 AM CDT documented as of this encounter Care Teams Head Charger Relationship Specialty Start Date End Date Aisha Medina APRN, TRADING ASSISTANT #[address] [address] PCP - General Advanced Practice Nurse 07/17/18 Ariel Lua DPM Consulting Physician Podiatry 12/02/16 Juanjo Mclaughlin MD [address] [place] [address] Consulting Physician Oncology 12/01/19 Rita Lynne MD #[address] [address] Consulting Physician Endocrinology 10/17/22 Meron Gurrola RN [place] Nurse Frog Farmer 01/09/24 01/15/24 Meron Gurrola RN [place] Nurse Frog Farmer 11/26/24 12/08/24 documented as of this encounter
--- OUTSIDE RECORDS SUMMARY | 2025-06-03 15:59 | XMS_ITS | Encounter Summary ---
Author Organization [facility] Address [address] [place] [address] Phone Care Team Providers Care Infant Room Teacher Name Role Phone Ariel Lua Nikhil DPM Unavailable [phone] Aisha Medina APRN, CUFFER Primary Care Prov ider Juanjo Mclaughlin MD Unavailable Rita Lynne MD Unavailable Meron Gurrola RN Unavailable Unavailable Meron Gurrola RN Unavailable Unavailable Reason for Visit * Reason Onset Date Comments Medication Refill 07/12/2021 Encounter Details Date Type Department Care Team (Late st Contact Info) Description 07/12/2021 Refill [facility] - Family Medicine [facility] #2 [place] [address] Aisha Medina APRN, CUFFER #[address] [address] Medication Refill Social History Tobacco Use Types [...] COVID-19? No / Unsure 07/09/2021 3:54 PM BROOM WORKER documented as of this encounter Miscellaneous Notes * Telephone Encounter - Jade Vega RN - 07/13/2021 9:39 AM CST Last Rx came from director employee communications - do you want to order - [...] 90 days and meeting all other requirements M WORKER * Telephone Encounter - Bryanna Anna - 07/12/2021 11:54 AM CST Received a faxed Rx request from pharmacy. Reordered refill medication(s) requested and pended for nurse and physician/SUMA review. Refill encounter routed to nurse Bridger's pool for processing. M WORKER documented in this encounter Plan of Treatment Upcoming Encounters Date Type Department Care Team (Late st Contact Info) Description 06/16/2025 7:45 AM BROOM WORKER Office Visit [facility] - Family Medicine - [place] #2 [place] [address] Aisha Medina APRN, CUFFER #[address] [phone] 07/06/2025 2:30 PM BROOM WORKER Office Visit [facility] - Endocrinology - [place] #2 [place] [address] Rita Lynne MD #[address] [phone] documented as of this encounter Visit Diagnoses Not on filedocumented in this encounter Additional Health Concerns Assessment Noted Time PHQ-9 Depression Total Score: 0 03/01/20 21 10:00 AM CDT documented as of this encounter Care Teams Infant Room Teacher Relationship Specialty Start Date End Date Aisha Medina APRN, CUFFER #[address] [phone] PCP - General Advanced Practice Nurse 07/17/18 Ariel Lua DPM Consulting Physician Podiatry 12/02/16 Juanjo Mclaughlin MD [address] [place] [address] Consulting Physician Oncology 12/01/19 Rita Lynne MD #[address] [phone] Consulting Physician Endocrinology 10/17/22 Meron Gurrola, ZEINAB [place] Nurse Optical Instrument Inspector 01/09/24 01/15/24 Meron Gurrola RN [place] Nurse Optical Instrument Inspector 11/26/24 12/08/24 documented as of this encounter
--- OUTSIDE RECORDS SUMMARY | 2025-06-03 15:59 | XMS_ITS | Encounter Summary ---
Author Organization [facility] Address [address] [place] [address] Phone Care Team Providers Care Public Message Service Supervisor Name Role Phone Ariel Lua Nikhil DPM Unavailable [phone] Aisha Medina APRN, CELL TECHNICIAN Primary Care Prov ider Juanjo Mclaughlin MD Unavailable Rita Lynne MD Unavailable eMron Gurrola RN Unavailable Unavailable Meron Gurrola RN Unavailable Unavailable Reason for Visit * Reason Comments Medication Refill Encounter Details Date Type Department Care Team (Late st Contact Info) Description 07/11/2022 Refill [facility] - Family Medicine [facility] #2 [place] [address] Aisha Medina APRN, CELL TECHNICIAN #[address] [address] Medication Refill Social History Tobacco [...] Emma Hernadez RN - 07/11/2022 10:58 AM FLAME HARDENING MACHINE SETTER Refilled 07/09/2022 E HARDENING MACHINE SETTER documented in this encounter Plan of Treatment Upcoming Encounters Date Type Department Care Team (Late st Contact Info) Description 06/16/2025 7:45 AM FLAME HARDENING MACHINE SETTER Office Visit [facility] Family Medicine [facility] [address] [place] [address] Aisha Medina APRN, CELL TECHNICIAN #2 [facility] [address] [place] [address] 07/06/2025 2:30 PM FLAME HARDENING MACHINE SETTER Office Visit [facility] Endocrinology [facility] #2 [place] [address] Rita Lynne MD #[address] [address] documented as of this encounter Visit Diagnoses [...] documented as of this encounter Care Teams Public Message Service Supervisor Relationship Specialty Start Date End Date Aisha Medina APRN, CELL TECHNICIAN #[address] [address] PCP - General Advanced Practice Nurse 07/17/18 Ariel Lua DPM Consulting Physician Podiatry 12/02/16 Juanjo Mclaughlin MD [address] [place] [address] Consulting Physician Oncology 12/01/19 Rita Lynne MD #[address] [phone] Consulting Physician Endocrinology 10/17/22 Meron Gurrola, RN [place] Nurse Graphics Software Engineer 01/09/24 01/15/24 Meron Gurrola RN [place] Nurse Graphics Software Engineer 11/26/24 12/08/24 documented as of this encounter
--- OUTSIDE RECORDS SUMMARY | 2025-06-03 15:59 | XMS_ITS | Encounter Summary ---
Author Organization [facility] Address [address] [place] [address] Phone Care Team Providers Care Production Machine Shop Supervisor Name Role Phone Ariel Lua DPM Unavailable [phone] Aisha Medina APRN, OCEAN FREIGHT FORWARDER Primary Care Prov ider Juanjo Mclaughlin MD Unavailable Rita Lynne MD Unavailable Meron Gurrola RN Unavailable Unavailable Meron Gurrola RN Unavailable Unavailable Reason for Visit * Reason Comments Medication Refill Encounter Details Date Type Department Care Team (Late st Contact Info) Description 05/24/2022 Refill [facility] #2 [place] [address] Aisha Medina APRN, OCEAN FREIGHT FORWARDER #[address] [address] Medication Refill Social History Tobacco [...] Coronavirus/COVID-19? No / Unsure 05/21/2022 12:41 PM OUTREACH ANALYST documented as of this encounter Miscellaneous Notes * Telephone Encounter - Emma Hernadez RN - 05/24/2022 9:41 AM OUTREACH ANALYST Refill requested too soon. EACH ANALYST documented in this encounter Plan of Treatment Upcoming Encounters Date Type Department Care Team (Late st Contact Info) Description 06/16/2025 7:45 AM OUTREACH ANALYST Office Visit [facility] - Family Medicine [facility] [address] [place] [address] Aisha Medina APRN, OCEAN FREIGHT FORWARDER #[address] [address] 07/06/2025 2:30 PM OUTREACH ANALYST Office Visit [facility] - Endocrinology - [place] #2 [place] [address] Rita Lynne MD #[address] [address] documented as of this encounter Visit Diagnoses Diagnosis 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, not stated as uncontrolled documented in this encounter Additional Health Concerns Assessment Noted Time PHQ-9 Depression Total Score: 0 03/01/20 21 10:00 AM CDT documented as of this encounter Care Teams Production Machine Shop Supervisor Relationship Specialty Start Date End Date Aisha Medina APRN, OCEAN FREIGHT FORWARDER #[address] [address] PCP - General Advanced Practice Nurse 07/17/18 Ariel Lua DPM Consulting Physician Podiatry 12/02/16 Juanjo Mclaughlin MD [address] [address] Consulting Physician Oncology 12/01/19 Rita Lynne MD #[address] [address] Consulting Physician Endocrinology 10/17/22 Meron Gurrola, RN [place] Nurse Collar Starcher 01/09/24 01/15/24 Meron Gurrola RN [place] Nurse Collar Starcher 11/26/24 12/08/24 documented as of this encounter
--- OUTSIDE RECORDS SUMMARY | 2025-06-03 15:59 | XMS_ITS | Encounter Summary ---
Author Organization [facility] Address [address] [place] [address] Phone Care Team Providers Care Professor Of Finance Name Role Phone Chanell Ariel Nikhil DPM Unavailable [phone] Aisha Medina APRN, PROFESSOR OF FINANCE Primary Care Prov ider Juanjo Mclaughlin MD Unavailable Rita Lynne MD Unavailable Meron Gurrola RN Unavailable Unavailable Meron Gurrola RN Unavailable Unavailable Reason for Visit * Reason Comments Medication Refill Encounter Details Date Type Department Care Team (Late st Contact Info) Description 07/11/2022 Refill [facility] Medical [facility] - Family Medicine [facility] #[address] [place] [address] Cherelle Vargas, PAC [address] [place] [address] Medication Refill Social History Tobacco Use Types [...] [place] 12/11/21 Procedure Visit Claus Guaman MD [facility] [place] 12/04/21 Office Visit Aisha Medina APRN, CNP [place] 10/15/21 Office Visit Aisha Medina APRN, KASSI [facility] [place] Showing recent visits within past 365 days and meeting all other requirements Future Appointments No visits were found meeting these conditions. Showing future appointments within next 90 days and meeting all other requirements Y CHILDHOOD EDUCATION INSTRUCTOR documented in this encounter Plan of Treatment Upcoming Encounters Date Type Department Care Team (Late st Contact Info) Description 06/16/2025 7:45 AM EARLY CHILDHOOD EDUCATION INSTRUCTOR Office Visit [facility] - Family Medicine - [place] #[address] [place] [address] Aisha Medina APRN, PROFESSOR OF FINANCE #[address] [place] [phone] 07/06/2025 2:30 PM EARLY CHILDHOOD EDUCATION INSTRUCTOR Office Visit [facility] - Endocrinology - [place] #2 [facility] [place] [address] Rita Lynne MD #[address] [address] documented as of this encounter Visit Diagnoses Not on filedocumented in this encounter Additional Health Concerns Assessment Noted Time PHQ-9 Depression Total Score: 0 03/01/20 21 10:00 AM CDT documented as of this encounter Care Teams Professor Of Finance Relationship Specialty Start Date End Date Aisha Medina, DATA COLLECTION ASSOCIATE, PROFESSOR OF FINANCE #[address] [address] PCP - General Advanced Practice Nurse 07/17/18 Ariel Lua DPM Consulting Physician Podiatry 12/02/16 Juanjo Mclaughlin MD [address] [place] [address] Consulting Physician Oncology 12/01/19 Rita Lynne MD #[address] [address] Consulting Physician Endocrinology 10/17/22 Meron Gurrola, RN [place] Nurse Real Estate Leasing Manager 01/09/24 01/15/24 Meron Gurrola, RN [place] Nurse Real Estate Leasing Manager 11/26/24 12/08/24 documented as of this encounter
--- OUTSIDE RECORDS SUMMARY | 2025-06-03 15:59 | XMS_ITS | Encounter Summary ---
Author Organization [facility] Address [address] [place] [address] Phone Care Team Providers Care Stull Installer Name Role Phone Ariel Lua Nikhil DPM Unavailable [phone] Aisha Medina APRN, INCLUSION SPECIAL EDUCATION TEACHER Primary Care Prov ider Juanjo Mclaughlin MD Unavailable Rita Lynne MD Unavailable Meron Gurrola RN Unavailable Unavailable Meron Gurrola RN Unavailable Unavailable Reason for Visit * Reason Comments Medication Refill Encounter Details Date Type Department Care Team (Late st Contact Info) Description 09/21/2022 Refill [facility] - Endocrinology [facility] #2 [place] [address] Rita Lynne MD #[address] [address] Medication Refill Social History Tobacco [...] ??? Insulin Pen Needle (TRUEplus 5-Bevel Pen Annabella) 31G X 6 MM Misc [Pharmacy Med Name: TRUEPLUS 5-BEVEL PE 31G X 6 MM MISC] 400 Each 3 Sig: USE 4 TIMES A DAY Next appt: Message sent to schedule follow up. documented in this encounter Plan of Treatment Upcoming Encounters Date Type Department Care Team (Late st Contact Info) Description 06/16/2025 7:45 AM TIEING MACHINE OPERATOR Office Visit [facility] - Family Medicine [facility] #2 [place] [address] Aisha Medina APRN, INCLUSION SPECIAL EDUCATION TEACHER #[address] [address] 07/06/2025 2:30 PM TIEING MACHINE OPERATOR Office Visit [facility] - Endocrinology - [place] #2 [place] [address] Rita Lynne MD #[address] [address] documented as of this encounter Visit Diagnoses Not on filedocumented in this encounter Additional Health Concerns Assessment Noted Time PHQ-9 Depression Total Score: 0 03/01/20 21 10:00 AM CDT documented as of this encounter Care Teams Stull Installer Relationship Specialty Start Date End Date Aisha Medina APRN, INCLUSION SPECIAL EDUCATION TEACHER #[address] [address] PCP - General Advanced Practice Nurse 07/17/18 Ariel Lua DPM Consulting Physician Podiatry 12/02/16 Juanjo Mclaughlin MD [address] [place] [address] Consulting Physician Oncology 12/01/19 Rita Lynne MD #[address] [address] Consulting Physician Endocrinology 10/17/22 Meron Gurrola, ZEINAB [place] Nurse Cuff Cutter 01/09/24 01/15/24 Meron Gurrola RN [place] Nurse Cuff Cutter 11/26/24 12/08/24 documented as of this encounter
--- OUTSIDE RECORDS SUMMARY | 2025-06-03 15:59 | XMS_ITS | Encounter Summary ---
Author Organization [facility] Address [address] [place] [address] Phone Care Team Providers Care Physics Teacher Name Role Phone Ariel Lua Nikhil DPM Unavailable [phone] Aisha Medina APRN, MIGRATORY WORKER Primary Care Prov ider Juanjo Mclaughlin MD Unavailable Rita Lynne MD Unavailable Meron Gurrola RN Unavailable Unavailable Meron Gurrola RN Unavailable Unavailable Reason for Visit * Reason Comments Medication Refill Encounter Details Date Type Department Care Team (Late st Contact Info) Description 12/06/2022 Refill [facility] #[address] [place] [phone] Jean-Paul Mcneal MD #[address] [address] Medication Refill Social History Tobacco Use Types [...] [place] 12/11/21 Procedure Visit Claus Guaman MD [facility] Showing recent visits within past 365 days and meeting all other requirements Future Appointments No visits were found meeting these conditions. Showing future appointments within next 90 days and meeting all other requirements documented in this encounter Plan of Treatment Upcoming Encounters Date Type Department Care Team (Late st Contact Info) Description 06/16/2025 7:45 AM HOME COMPANION Office Visit [facility] - Family Medicine - [place] [address] [place] [address] Aisha Medina APRN, MIGRATORY WORKER #2 [facility] [address] [place] [address] 07/06/2025 2:30 PM HOME COMPANION Office Visit [facility] - Endocrinology - [place] #2 [facility] [place] [address] Rita Lynne MD #2 [facility] [address] [place] [address] documented as of this encounter Visit Diagnoses Not on filedocumented in this encounter Additional Health Concerns Assessment Noted Time PHQ-9 Depression Total Score: 0 03/01/20 21 10:00 AM CDT documented as of this encounter Care Teams Physics Teacher Relationship Specialty Start Date End Date Aisha Medina APRN, MIGRATORY WORKER #2 [facility] [address] [place] [phone] PCP - General Advanced Practice Nurse 07/17/18 Ariel Lua DPM Consulting Physician Podiatry 12/02/16 Juanjo Mclaughlin MD [address] [place] [address] Consulting Physician Oncology 12/01/19 Rita Lynne MD #2 [facility] [address] [place] [phone] Consulting Physician Endocrinology 10/17/22 Meron Gurrola, ZEINAB [place] Nurse Forensic Economist 01/09/24 01/15/24 Meron Gurrola RN [place] Nurse Forensic Economist 11/26/24 12/08/24 documented as of this encounter
--- OUTSIDE RECORDS SUMMARY | 2025-06-03 15:59 | XMS_ITS | Encounter Summary ---
Author Organization [facility] Address [address] [place] [address] Phone Care Team Providers Care Pattern Stamper Name Role Phone Ariel Lua DPM Unavailable [phone] Winston Medina APRN, ELIGIBILITY COUNSELOR Primary Care Prov ider Juanjo Mclaughlin MD Unavailable Rita Lynne MD Unavailable Meron Gurrola RN Unavailable Unavailable Meron Gurrola RN Unavailable Unavailable Reason for Visit * Reason Comments Medication Refill Encounter Details Date Type Department Care Team (Late st Contact Info) Description 06/10/2022 Refill [facility] Family Medicine [facility] #2 [place] [address] Winston Medina APRN, ELIGIBILITY COUNSELOR #[address] [address] Medication Refill Social History [...] Coronavirus/COVID-19? No / Unsure 05/21/2022 12:41 PM WIND TURBINE ERECTOR documented as of this encounter Miscellaneous Notes * Telephone Encounter - Jade Vega RN - 06/11/2022 8:04 AM CST Pt is receiving 2 different doses from 2 different providers. TURBINE ERECTOR * Telephone Encounter - Jade Vega RN [...] 30 Tablet WINSTON MEDINA Pedroza Family Pharmac... TURBINE ERECTOR documented in this encounter Plan of Treatment Upcoming Encounters Date Type Department Care Team (Late st Contact Info) Description 06/16/2025 7:45 AM WIND TURBINE ERECTOR [facility]2 [place] [address] Winston Medina APRN, ELIGIBILITY COUNSELOR #[address] [phone] 07/06/2025 2:30 PM WIND TURBINE ERECTOR Office Visit [facility] - Endocrinology - [place] #2 [place] [address] Rita Lynne MD #[address] [address] documented as of this encounter Visit Diagnoses [...] documented as of this encounter Care Teams Pattern Stamper Relationship Specialty Start Date End Date Winston Medina APRN, ELIGIBILITY COUNSELOR #[address] [address] PCP - General Advanced Practice Nurse 07/17/18 Ariel Lua DPM Consulting Physician Podiatry 12/02/16 Juanjo Mclaughlin MD [address] [place] [address] Consulting Physician Oncology 12/01/19 Rita Lynne MD #[address] [address] Consulting Physician Endocrinology 10/17/22 Meron Gurrola, RN [place] Nurse Control Inspector 01/09/24 01/15/24 Meron Gurrola RN [place] Nurse Control Inspector 11/26/24 12/08/24 documented as of this encounter
--- OUTSIDE RECORDS SUMMARY | 2025-06-03 15:59 | XMS_ITS | Encounter Summary ---
Author Organization [facility] Address [address] [place] [address] Phone Care Team Providers Care Eyelet Machine Operator Name Role Phone Ariel Lua DPM Unavailable [phone] Aisha Medina APRN, MEDICAL PHYSICS PROFESSOR Primary Care Prov ider Juanjo Mclaughlin MD Unavailable Rita Lynne MD Unavailable Meron Gurrola RN Unavailable Unavailable Meron Gurrola RN Unavailable Unavailable Reason for Visit * Reason Comments Medication Refill Encounter Details Date Type Department Care Team (Late st Contact Info) Description 05/08/2022 Refill [facility] - Family Medicine [facility] #2 [place] [address] Aisha Medina APRN, MEDICAL PHYSICS PROFESSOR #[address] [address] Medication Refill Social History Tobacco [...] Contact Info) Description 06/16/2025 7:45 AM GLASS PRODUCTION MACHINE OPERATOR Office Visit [facility] Family Medicine [facility] #2 [place] [address] Aisha Medina APRN, MEDICAL PHYSICS PROFESSOR #[address] [phone] 07/06/2025 2:30 PM GLASS PRODUCTION MACHINE OPERATOR Office Visit [facility] Endocrinology [facility] #2 [place] [address] Rita Lynne MD #[address] [address] documented as of this encounter Visit Diagnoses [...] documented as of this encounter Care Teams Eyelet Machine Operator Relationship Specialty Start Date End Date Aisha Medina APRN, MEDICAL PHYSICS PROFESSOR #[address] [phone] PCP - General Advanced Practice Nurse 07/17/18 Ariel Lua DPM Consulting Physician Podiatry 12/02/16 Juanjo Mclaughlin MD [address] [address] Consulting Physician Oncology 12/01/19 Rita Lynne MD #[address] [address] Consulting Physician Endocrinology 10/17/22 Meron Gurrola, RN [place] Nurse Ict Security Specialist 01/09/24 01/15/24 Meron Gurrola, ZEINAB [place] Nurse Ict Security Specialist 11/26/24 12/08/24 documented as of this encounter
== END 2025-06-03 16:22 | disposition home or self-care (01) ==
PROVIDERS: Emergency Provider Nurse Practitioner Family; PCP Nurse Practitioner
DX: S93.509A Unspecified sprain of unspecified toe(s), initial encounter (principal); W22.03XA Walked into furniture, initial encounter
CPT/HCPCS: 73630; 99213; G0463